=== PATIENT | female | born 1945 | race Caucasian/White ===

== ENCOUNTER 2019-10-10 13:28 | Emergency (ER) | payer MEDICARE, SELFPAY ==
[2019-10-10 13:30] VITALS: BP 173/102; PULSE 110; RESP 16; TEMP 36.8; O2SAT 94; BMI 32.5
--- NOTE | 2019-10-10 13:40 | ED_ITS ---
Entered by Jazmin Ware, acting as scribe for Eliseo Silva DO HPI - Chest Pain General: Chief Complaint: Chest Pain Stated Complaint: CHEST PAIN Time Seen by Provider: 10/10/19 13:40 Source: patient Mode of arrival: ambulatory Limitations: no limitations History of Present Illness: MD complaint: chest pain Onset (ago): day(s) (last night) Timing of current episode: constant Prior episodes: Yes Onset: during rest Pain location: substernal Pain radiation: none Severity: mild Quality: burning Relieving factors: nothing Exacerbating factors: nothing Associated symptoms: Reports dyspnea and other (shortness of breath chronic, cough chronic) Review of Systems General: Reports: 10 or more systems reviewed and unremarkable except in HPI and below Const: Reports: chills Card: Reports: chest pain Resp: Reports: shortness of breath and productive cough PFSH ED PFSH: Medical History Coronary artery disease History of [place] (myocardial infarction) HTN (hypertension) PAD (peripheral artery disease) Surgical History History of cholecystectomy S/P femoral-popliteal bypass surgery Family History Other CAD (coronary artery disease) Cancer Diabetes Hypertension Stroke Social History Smoking and tobacco status: former smoker History of recent travel: No Physical Exam Const: COMMON NORMALS: no apparent distress, average body habitus, oriented x3, no limitations, healthy appearing, alert and well nourished HENMT: COMMON NORMALS: normocephalic, head/scalp atraumatic, hearing grossly n ormal bilaterally, external ears normal, EAC's normal, TM's normal bilaterally, external nose normal, nasal mucous membranes and turbinates normal, moist oral mucous membranes, oropharynx normal, dentition normal and gingiva normal HEAD & SCALP: normocephalic and atraumatic NOSE: external nose normal and nasal mucous membranes and turbinates normal EXTERNAL EAR: Yes external ears normal EXTERNAL AUDITORY CANAL: EAC's normal TYMPANIC MEMBRANE: TM's normal bilaterally Eye: COMMON NORMALS: PERRL, EOMs intact bilaterally, conjunctivae normal, no scleral icterus, no papilledema, normal visual anaya by confrontation and fundi normal bilaterally CONJUNCTIVA: Yes conjunctivae normal PUPIL: Yes PERRL DIRECT OPHTHALMOSCOPY: Yes no papilledema and Yes fundi normal bilaterally Neck/C-Spine: COMMON NORMALS: full ROM, no lymphadenopathy, supple, no meningeal signs, thyroid normal and no carotid bruits THYROID: thyroid normal Resp: COMMON NORMALS: normal respiratory effort, no retractions, no use of accessory muscles, clear to auscultation bilaterally and percussion normal AUSCULTATION: clear to auscultation bilaterally PERCUSSION: percussion normal Cardio: COMMON NORMALS: no murmurs RATE: tachycardic GI: COMMON NORMALS: normal to inspection, nondistended, normoactive bowel sounds, soft to palpation, non-tender, no hepatosplenomegaly, no masses and no bruits PALPATION: Yes soft and Yes no hepatosplenomegaly : COMMON NORMALS: Yes no CVA tenderness and Yes external appearance normal BLADDER/KIDNEY EXAM: Yes no CVA tenderness Back/Pelvis: COMMON NORMALS: no CVA tenderness, thoracic and lumbar spine normal to inspection, no thoracic nor lumbar tenderness, thoraco-lumbar ROM normal and straight leg raise negative bilaterally Extremity: COMMON NORMALS: normal to inspection, full ROM, normal capillary refill, no joint enlargement, no clubbing, cyanosis or edema, no calf tenderness and no pedal edema Neuro: COMMON NORMALS: oriented x3 SENSORIUM/ORIENTATION: Yes alert MENINGEAL SIGNS: Yes no meningeal signs Skin: COMMON NORMALS: no rashes or lesions noted, no wounds, skin turgor normal, no jaundice, no petechiae and no mottling GENERAL SKIN EXAM: no rashes or lesions noted and turgor normal Course Vital Signs: Vital signs: Vital Signs Temperature 98.3 F 10/10/19 13:30 Pulse Rate 110 H 10/10/19 13:30 Respiratory Rate 16 10/10/19 13:30 Blood Pressure 173/102 10/10/19 13:30 Pulse Oximetry 97 10/10/19 13:54 MDM - Chest Pain MDM Narrative: Medical decision making narrative: pt's pain was resolved after GI cocktail. Discharge Plan Discharge Patient Disposition: Home, Self-Care Clinical Impression: Atypical chest pain, Chest pain due to GERD, Dizziness Condition: Stable Prescriptions: New Carafate 100 mg/mL suspension 10 ml PO Q6H 56 Days Qty: 2240 RF: 0 meclizine 25 mg tablet 25 mg PO QID PRN (Reason: dizziness) Qty: 20 RF: 0 No Action simvastatin 20 mg tablet 20 mg PO DAILY RF: 0 pantoprazole 40 mg tablet,delayed release (DR/EC) 40 mg PO DAILY RF: 0 clopidogrel [Plavix] 75 mg tablet 75 mg PO DAILY RF: 0 allopurinol 100 mg tablet 100 mg PO DAILY RF: 0 aspirin [Adult Low Dose Aspirin] 81 mg tablet,delayed release (DR/EC) 81 mg PO DAILY RF: 0 glipizide 5 mg tablet 5 mg PO DAILY RF: 0 metformin 1,000 mg tablet 1,000 mg PO BID RF: 0 amitriptyline 25 mg tablet 25 mg PO DAILY RF: 0 levothyroxine 100 mcg capsule 50 mcg PO DAILY RF: 0 pregabalin [Lyrica] 25 mg capsule 25 mg PO BID RF: 0 lisinopril 20 mg tablet 20 mg PO DIRECTED 30 Days Qty: 45 RF: 11 nitroglycerin [Nitrostat] 0.4 mg tablet, sublingual 0.4 mg sublingual Q5M PRN (Reason: chest pain) 30 Days Qty: 25 RF: 2 Referrals: Jenniffer Jenkins MD [Primary Care Provider] - Coding Level of Care Code ED Armature Tester for 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 The documentation recorded by the Chaz plata Bridget Annette, accurately reflects the service I personally performed and the decisions made by , Eliseo Silva, DO
[2019-10-10 13:54] VITALS: O2SAT 97
[2019-10-10] MEDS: lidocaine 2% viscous 15 ML, aluminum-mag hydrox-simethicon 30 ML, sucralfate oral liq 1 GM PO (14:13)
[2019-10-10 15:04] VITALS: BP 144/91; PULSE 89; RESP 17; O2SAT 97
== END 2019-10-10 15:05 | disposition home or self-care (01) ==
LOC: ER 14:55
PROVIDERS: Emergency Provider Family Medicine; Family Provider Internal Medicine; PCP Internal Medicine
DX: R07.89 Other chest pain (principal); K21.9 Gastro-esophageal reflux disease without esophagitis; R42 Dizziness and giddiness; I25.10 Atherosclerotic heart disease of native coronary artery without angina pectoris; I25.2 Old myocardial infarction; I10 Essential (primary) hypertension; Z87.891 Personal history of nicotine dependence; Z79.82 Long term (current) use of aspirin
CPT/HCPCS: 12345; 99281; 99282

== ENCOUNTER 2019-12-29 15:01 | Outpatient (CLI) | payer BC, MEDICARE, SELFPAY ==
--- NOTE | 2019-12-29 | XR_ITS ---
WS: [id number] SCREENING DEXA SCAN [employer] CLINICAL INFORMATION: ASYMPTOMATIC POSTMENOPAUSAL COMPARISON: May 10, 2015 FINDINGS: The L1-L4 bone mineral density measures 1.162 g/cm2. This corresponds to a T score score of -0.1 and Z score of 1.0. Left femoral neck bone mineral density measures 0.899 g/cm2. This corresponds to a T score of -0.9 an d Z score of 0.5. Right femoral neck bone mineral density measures 0.839 g/cm2. This corresponds to a T score -1.3of an d Z score of 0.0. Mean femoral neck bone mineral density measures 0.869 g/cm2. This corresponds to a T score of -1.1 an d Z score of 0.2. XR/XR DEXA axial skeleton* [id number] IMPRESSION: Osteopenia in the femoral necks. Patient's FRAX calculated 10 year probability for major osteoporotic fracture i s 18.1 % and osteoporotic hip fracture is 5.5%. Bone mineral density in the lumbar spine has increased 9.4% since May 10 015 but is likely spuriously elevated due to endplate sclerosis. Bone mineral d ensity in the femoral necks has decreased -4.6% since 2014.
== END 2019-12-29 15:02 | disposition home or self-care (01) ==
LOC: RADWPI 15:05
PROVIDERS: Family Provider Internal Medicine; PCP Internal Medicine; Visit Provider Internal Medicine
DX: Z78.0 Asymptomatic menopausal state (principal); M85.88 Other specified disorders of bone density and structure, other site
CPT/HCPCS: 77080

== ENCOUNTER 2020-04-15 16:45 | Outpatient (CLI) | payer MEDICARE, BC, SELFPAY ==
--- NOTE | 2020-04-15 | XRR_ITS ---
PROCEDURE INFORMATION: Exam: XR Lumbosacral Spine, 2 or 3 Views Exam date and time: 04/15/2020 5:29 PM Age: 75 years old Clinical indication: Low back pain and sciatica; Additional info: Lower back pain with left sciatica TECHNIQUE: Imaging protocol: XR of the lumbosacral spine, 2 or 3 views. COMPARISON: CR Lumbar Spine 5 views [id number] 02/09/2014 3:45 PM FINDINGS: Vertebrae: Osteopenia. Levoscoliosis and multilevel degenerative change. Grade 1 anterolisthesis of L4 on L5 and L5 on S1. Intraperitoneal space: Status post cholecystectomy. Gastrointestinal tract: Prominent stool. Vasculature: Vascular calcification. XR/XR lumbar spine 2-3V* [id number] IMPRESSION: 1. Levoscoliosis and multilevel degenerative change. 2. Grade 1 anterolisthesis of L4 on L5 and L5 on S1.
== END 2020-04-15 16:46 | disposition home or self-care (01) ==
LOC: RAD 16:55
PROVIDERS: PCP Internal Medicine; Visit Provider Internal Medicine
DX: M54.5 Low back pain (principal); M54.32 Sciatica, left side
CPT/HCPCS: 72100

== ENCOUNTER 2020-05-22 13:03 | Outpatient (CLI) | payer MEDICARE, SELFPAY ==
--- NOTE | 2020-05-22 13:10 | MM_ITS ---
WS: [id number] BILATERAL DIGITAL SCREENING MAMMOGRAM WITH CAD CLINICAL INFORMATION: SCREENING HISTORY: Screening mammogram. No current complaints. COMPARISON: TECHNIQUE: Bilateral CC and MLO views. FINDINGS: Fatty-replaced breasts bilaterally. No suspicious focal mass, asymmetry, calcifications, or business solutions architect ural distortion. No evidence of malignancy. Vascular calcification MM/[place] [id number] IMPRESSION: BI-RADS: 2-Benign FOLLOW UP: 1 Year Follow-up Recommend return to annual screening mammography.
== END 2020-05-22 13:04 | disposition home or self-care (01) ==
PROVIDERS: PCP Internal Medicine; Visit Provider Internal Medicine
DX: Z12.31 Encounter for screening mammogram for malignant neoplasm of breast (principal)
CPT/HCPCS: 77067

== ENCOUNTER 2020-06-24 09:57 | Outpatient (CLI) | payer MEDICARE, SELFPAY ==
--- NOTE | 2020-06-24 10:00 | CT_ITS ---
WS: [id number] CTA ABDOMINAL AORTA WITH RUNOFF TECHNIQUE: Contrast enhanced CTA of the abdominal aorta with bilateral lower extremity runoff. Multip lanar reformatted images were obtained. MIP reformats were also reviewed. CLINICAL INFORMATION: I73.9 - Peripheral vascular disease, unspecified COMPARISON: CTA 8 10,016 DLP: 1425.[address] scans at [facility] use at least one of these dose optimization techniques: automat ed exposure control; mA and/or kV adjustment per patient size (includes targeted exams where dose is matched to clinical indication); or iterative reconstruction. FINDINGS: Prior cholecystectomy. Chronic emphysematous changes in the lung bases. Normal liver. Small esophageal hiatal hernia. Splenic granulomas. Heterogeneous splenic enhancement is unchanged. Adrena l glands are normal. Normal renal parenchymal enhancement. No hydronephrosis. Sigmoid diverticulosis. No evidence of acute diverticulitis. Mild stenosis at the celiac origin. Celiac and SMA are patent. Both renal arteries are patent. Normal caliber abdominal aorta. Aortic calcification. No abdominal ao rtic aneurysm. Grade 1 anterolisthesis L5 on S1. RIGHT: 40% stenosis right proximal common iliac artery origin is unchanged. Right common iliac and in ternal iliac arteries are patent with dense calcification. External iliac artery is patent with mild segmental stenosis. Right common femoral artery is patent. Femorofemoral bypass graft is occluded. Th is is new from 2016. Superficial femoral artery and deep femoral arteries are patent. Popliteal arter y is patent to the trifurcation. Dominant two-vessel runoff to the ankle with tiny peroneal artery. LEFT: Left femoral bypass graft. Left common iliac artery is patent with moderate to severe stenosis at the origin. Dense calcification in the left iliac system. Internal iliac artery is patent. Externa l iliac artery is occluded. Tiny common femoral artery is patent. Femorofemoral bypass graft is occlu ded. Superficial femoral and deep femoral arteries are patent. SFA is patent to the adductor hiatus. Popliteal artery is patent to the trifurcation. Two-vessel runoff to the ankle with poor flow in the posterior tibial artery. CT/CT angio abd aorta runof [id number] IMPRESSION: 1. No abdominal aortic aneurysm. 2. 40% stenosis RIGHT proximal common iliac arteries unchanged. 3. Femorofemoral bypass graft is occluded new from previous. 4. Dominant two-vessel runoff to the RIGHT ankle with tiny peroneal artery 5. Dominant two-vessel runoff to the LEFT ankle with tiny posterior tibial art danish. 6. LEFT external iliac artery is occluded. Reconstitution of the common femora l artery with flow in the SFA to the adductor hiatus. Femorofemoral bypass ann t is occluded. 7. Cholelithiasis
[2020-06-24 10:40] LABS: Blood Urea Nitrogen 13 mg/dL (8-23)
[2020-06-24] MEDS: iohexol 350 mg/mL 100 mL Btl IV (11:02)
== END 2020-06-24 09:58 | disposition home or self-care (01) ==
LOC: RADWPI 10:01
PROVIDERS: PCP Internal Medicine; Visit Provider Internal Medicine Cardiovascular Disease
DX: I73.9 Peripheral vascular disease, unspecified (principal); K80.20 Calculus of gallbladder without cholecystitis without obstruction; I74.5 Embolism and thrombosis of iliac artery
CPT/HCPCS: 75635; 82565; 84520; Q9967

== ENCOUNTER 2020-06-25 11:46 | Emergency (ER) | payer MEDICARE, SELFPAY ==
[2020-06-25 11:54] VITALS: BP 170/122; PULSE 102; RESP 18; TEMP 36.4; O2SAT 96; BMI 35.4
--- NOTE | 2020-06-25 12:05 | ECG_ITS ---
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 Measurements Intervals [place] Rate: 95 P: 51 AL: 172 QRS: 16 QRSD: 94 T: 54 QT: 342 QTc: 431 Interpretive Statements SINUS RHYTHM Compared to ECG 05/22/2019 03:18:52 Sinus tachycardia no longer present Electronically Signed On 06-25-2020 15:16:58 AGRICULTURE WORKER by Tanja Jenkins M.D. [id number]
--- NOTE | 2020-06-25 12:05 | XR_ITS ---
WS: [id number] PORTABLE CHEST HISTORY: cp COMPARISON: 05/22/2019 Pulmonary hyperexpansion from emphysema. Mild interstitial thickening at the lung bases. No pneumonia . Normal vasculature. No pleural effusion or pneumothorax. Cardiac size: Normal. Mediastinum/Aorta: Mild atherosclerosis aorta. No osseous abnormality seen. XR/XR chest 1V portable [id number] IMPRESSION: Minimal interstitial thickening at the lung bases. Superimposed on emphysema.
[2020-06-25 12:13] VITALS: BP 158/94; PULSE 94; O2SAT 96
--- NOTE | 2020-06-25 12:18 | W.ED.CHESTPA ---
HPI - Chest Pain General: Chief Complaint: Chest Pain Stated Complaint: chest pain Time Seen by Provider: 06/25/20 12:03 History of Present Illness: HPI narrative: Patient presents with chest pain that started today. Patient said she had a angiogram done yesterday showed she had a femoropopliteal blockage and they recommended that she have surgery to get it cleared out. She says she thinks me today because her have some chest pain. She denies any distress shortness of breath nausea vomiting chills or other related problems and the chest pain seems to go from right to left and does hurt some on inspiration. MD complaint: chest pain Pertinent past history: coronary artery disease, prior ID, [facility] and other (Fem pop blockage) Onset (ago): hour(s) Timing of current episode: constant Prior episodes: Yes Onset: during rest Pain location: left chest and right chest Pain radiation: neck Severity: mild Quality: aching Relieving factors: nothing Exacerbating factors: inspiration Associated symptoms: Reports no associated symptoms; Deny abdominal pain, dyspnea, fever(s), nausea or vomiting Review of Systems Const: Denies: fever(s), chills or body aches Eyes: Denies: change in vision or blurry vision ENMT: Denies: throat pain or nasal congestion Card: Reports: chest pain; Denies: dyspnea on exertion Resp: Denies: dyspnea, productive cough or non-productive cough GI: Denies: abdominal pain, nausea or vomiting Musc: Denies: extremity pain Skin/Breast: Denies: rash Neuro: Denies: headache(s) Psych: Denies: anxiety or depression Alfredo/Lymph: Denies: easy bruising PFS ED PFSH: Medical History (Updated 06/25/20 @ 13:02 by JO ANN Ryan) Coronary artery disease History of [place] (myocardial infarction) HTN (hypertension) PAD (peripheral artery disease) Surgical History History of cholecystectomy S/P femoral-popliteal bypass surgery Family History Other CAD (coronary artery disease) Cancer Diabetes Hypertension Stroke Social History Smoking and tobacco status: former smoker History of recent travel: No Physical Exam Const: COMMON NORMALS: no acute distress, average body habitus and patient oriented x3 HENMT: COMMON NORMALS: normocephalic HEAD & SCALP: normal to inspection and normocephalic FACE & SINUS: normal facial exam Eye: COMMON NORMALS: conjunctivae normal GENERAL EYE: appearance normal, both eyes and all related structures CONJUNCTIVA: Yes conjunctivae normal Neck/C-Spine: COMMON NORMALS: no JVD Chest: COMMONS NORMALS: normal inspection of the chest Resp: COMMON NORMALS: normal respiratory effort and clear to auscultation bilaterally AUSCULTATION: clear to auscultation bilaterally Cardio: COMMON NORMALS: no JVD, regular rate and regular rhythm RATE: regular rate RHYTHM: regular rhythm GI: COMMON NORMALS: Normal to inspection, nondistended, normoactive bowel sounds present Extremity: COMMON NORMALS: normal to inspection and full ROM Neuro: COMMON NORMALS: patient oriented x3 Course Vital Signs: Vital signs: Vital Signs Temperature 97.5 F L 06/25/20 11:54 Pulse Rate 89 06/25/20 12:46 Respiratory Rate 24 H 06/25/20 12:46 Blood Pressure 155/95 06/25/20 12:46 Pulse Oximetry 95 06/25/20 12:46 MDM - Chest Pain MDM Narrative: Medical decision making narrative: Discussed patient with Dr. Acharya. I discussed test results with patient. Patient does not want to stay for her 2-hour troponin test. I explained to her the risk of leaving for a test is completed which can include cardiac damage or other related problems. Patient says she feels fine does not want to stay for that test. I explained to her signs symptoms of heart attack heart problems related to her symptoms. Patient still decides that she wants to sign AMA form and leave. I discussed case with Dr. Acharya again. Lab Data: Labs: Lab Results 06/25/20 06/25/20 06/25/20 Range/Units 12:22 12:22 12:22 WBC 8.7 (4.0-10.0) 10^3/ uL RBC 5.08 (4.1-5.3) 10^6/u L Hgb 13.3 (11.5-15.3) g/dL Hct 43.3 (37.0-47.0) % MCV 85.2 (81-99) fL MCH 26.2 L (28.0-34.0) pg MCHC 30.7 (30.0-36.0) g/dL RDW 15.7 H (12.1-15.1) % Plt Count 287 (130-400) 10^3/c mm MPV 10.2 (7.4-10.4) fL Neut % (Auto) 53.5 % Lymph % (Auto) 32.4 % [place] % (Auto) 7.7 % Eos % (Auto) 5.1 % Baso % (Auto) 1.0 % Neut # (Auto) 4.64 (1.8-7.7) 10^3/u L Lymph # (Auto) 2.8 (0.8-4.8) 10^3/u L [place] # (Auto) 0.7 (0.2-0.9) 10^3/u L Eos # (Auto) 0.4 (0.0-0.8) 10^3/u L Baso # (Auto) 0.1 (0.0-0.1) 10^3/u L Nucleated RBC % (a uto) 0 % Nucleated RBCs # 0.0 /100WBC PT 13.10 (12.1-14.9) SECO NDS INR 0.96 (0.8-1.2) Sodium 140 (136-145) mmol/L Potassium 4.9 (3.5-5.1) mmol/L Chloride 105 (98-107) mmol/L Carbon Dioxide 22 (22-29) mmol/L Anion Gap 17.9 (5-19) BUN 17 (8-23) mg/dL Creatinine 1.0 H (0.5-0.9) mg/dL GFR Calculation Not Reportable Glucose 275 H (65-115) mg/dL Calculated Osmolal ity 301 H (285-295) mOsm/k g Calcium 8.9 (8.5-10.5) mg/dL Total Bilirubin 0.3 (0.15-1.2) mg/dL AST 13 (0-32) U/L ALT 14 (0-33) U/L Alkaline Phosphata se 98 (35-105) IU/L Troponin T Baselin e (0-10) ng/L Total Protein 6.6 (6.6-8.7) g/dL Albumin 4.2 (3.5-5.2) g/dL Globulin 2.4 (1.3-4.6) g/dL 06/25/20 Range/Units 12:22 WBC (4.0-10.0) 10^3/ uL RBC (4.1-5.3) 10^6/u L Hgb (11.5-15.3) g/dL Hct (37.0-47.0) % MCV (81-99) fL MCH (28.0-34.0) pg MCHC (30.0-36.0) g/dL RDW (12.1-15.1) % Plt Count (130-400) 10^3/c mm MPV (7.4-10.4) fL Neut % (Auto) % Lymph % (Auto) % [place] % (Auto) % Eos % (Auto) % Baso % (Auto) % Neut # (Auto) (1.8-7.7) 10^3/u L Lymph # (Auto) (0.8-4.8) 10^3/u L [place] # (Auto) (0.2-0.9) 10^3/u L Eos # (Auto) (0.0-0.8) 10^3/u L Baso # (Auto) (0.0-0.1) 10^3/u L Nucleated RBC % (a uto) % Nucleated RBCs # /100WBC PT (12.1-14.9) SECO NDS INR (0.8-1.2) Sodium (136-145) mmol/L Potassium (3.5-5.1) mmol/L Chloride (98-107) mmol/L Carbon Dioxide (22-29) mmol/L Anion Gap (5-19) BUN (8-23) mg/dL Creatinine (0.5-0.9) mg/dL GFR Calculation Glucose (65-115) mg/dL Calculated Osmolal ity (285-295) mOsm/k g Calcium (8.5-10.5) mg/dL Total Bilirubin (0.15-1.2) mg/dL AST (0-32) U/L ALT (0-33) U/L Alkaline Phosphata se (35-105) IU/L Troponin T Baselin e 6 (0-10) ng/L Total Protein (6.6-8.7) g/dL Albumin (3.5-5.2) g/dL Globulin (1.3-4.6) g/dL Discharge Plan Discharge Patient Disposition: Left Against Medical Advice Clinical Impression: Atypical chest pain Condition: Stable Prescriptions: No Action simvastatin 20 mg tablet 20 mg PO DAILY RF: 0 pantoprazole 40 mg tablet,delayed release (DR/EC) 40 mg PO DAILY RF: 0 allopurinol 100 mg tablet 100 mg PO DAILY RF: 0 glipizide 5 mg tablet 5 mg PO DAILY RF: 0 metformin 1,000 mg tablet 1,000 mg PO BID RF: 0 amitriptyline 25 mg tablet 25 mg PO DAILY RF: 0 levothyroxine 100 mcg capsule 50 mcg PO DAILY RF: 0 pregabalin [Lyrica] 25 mg capsule 25 mg PO BID RF: 0 lisinopril 20 mg tablet 20 mg PO DIRECTED 30 Days Qty: 45 RF: 11 nitroglycerin [Nitrostat] 0.4 mg tablet, sublingual 0.4 mg sublingual Q5M PRN (Reason: chest pain) Qty: 25 RF: 4 clopidogrel [Plavix] 75 mg tablet 75 mg PO DAILY Qty: 90 RF: 3 meclizine 25 mg tablet 25 mg PO QID PRN (Reason: dizziness) Qty: 20 RF: 0 Discharge Orders: Discharge ED (Routine); Ordered 06/25/20 Ordered By: Michael Saaevdra Referrals: Jenniffer Jenkins MD [Primary Care Provider] - Patient Instructions: Chest Pain (ED) Activity Restrictions/Additional Instructions: You left AGAINST MEDICAL ADVICE your recommend that a 2-hour troponin test be done. You made a choice to not have that test done. Return the ER follow-up with your family medical provider if the symptoms occur or worsen watch for nausea and vomiting and shortness of breath heaviness in the chest. Those things occur please return the ER or call ambulance. Coding Level of Care Code ED Dumb Waiter Operator for Param Carpio Exam Comprehensive
[2020-06-25 12:32] LABS: Basophils # 0.1 10^3/uL (0.0-0.1); Eosinophils # 0.4 10^3/uL (0.0-0.8); Eosinophils % 5.1 %; Hematocrit 43.3 % (37.0-47.0); Hemoglobin 13.3 g/dL (11.5-15.3); Lymphocytes # 2.8 10^3/uL (0.8-4.8); Lymphocytes % 32.4 %; Mean Corpuscular HGB Conc 30.7 g/dL (30.0-36.0); Mean Corpuscular Hemoglobin 26.2 pg (28.0-34.0); Mean Corpuscular Volume 85.2 fL (81-99); Mean Platelet Volume 10.2 fL (7.4-10.4); Monocytes # 0.7 10^3/uL (0.2-0.9); Monocytes % 7.7 %; Neutrophils # 4.64 10^3/uL (1.8-7.7); Neutrophils % 53.5 %; Nucleated Red Blood Cells % 0 %; Platelet Count 287 10^3/cmm (130-400); Red Blood Count 5.08 10^6/uL (4.1-5.3); Red Cell Distribution Width 15.7 % (12.1-15.1); White Blood Count 8.7 10^3/uL (4.0-10.0)
[2020-06-25 12:45] LABS: INR 0.96 (0.8-1.2)
[2020-06-25 12:46] VITALS: BP 155/95; PULSE 89; RESP 24; O2SAT 95
[2020-06-25 12:49] LABS: Alanine Aminotransferase 14 U/L (0-33); Albumin Level 4.2 g/dL (3.5-5.2); Alkaline Phosphatase 98 IU/L (35-105); Anion Gap 17.9 (5-19); Aspartate Amino Transferase 13 U/L (0-32); Blood Urea Nitrogen 17 mg/dL (8-23); Calcium 8.9 mg/dL (8.5-10.5); Carbon Dioxide 22 mmol/L (22-29); Chloride 105 mmol/L (98-107); Globulin 2.4 g/dL (1.3-4.6); Glucose 275 mg/dL (65-115); Osmolality Calculated 301 mOsm/kg (285-295); Potassium 4.9 mmol/L (3.5-5.1); Sodium 140 mmol/L (136-145); Total Bilirubin 0.3 mg/dL (0.15-1.2); Total Protein 6.6 g/dL (6.6-8.7)
[2020-06-25 12:51] LABS: Troponin(5th) Baseline 6 ng/L (0-10)
[2020-06-25 13:05] VITALS: BP 173/89; PULSE 85; RESP 24; O2SAT 95
[2020-06-25 13:30] LABS: Add Urine Microscopic? YES; Bilirubin Urine 1+ (Negative); Blood Urine Neg (Negative); Glucose Urine UA 2+ (Normal); Ketones Urine 1+ (Negative); Leukocyte Esterase Urine 2+ (Negative); Nitrate Urine Negative (Negative); Protein Urine Neg (Negative); Urine Appearance SL Hazy (CLEAR); Urine Color Yellow (Yellow); Urobilinogen Urine Norm (Negative); pH Urine 5 (5-7)
[2020-06-25 13:31] LABS: Bacteria Urine 4+ /hpf; RBC Urine 0-4 /hpf (0-2); WBC Urine 25-40 /hpf (0-5)
[2020-06-25 13:32] LABS: Add Urine Culture? Yes
== END 2020-06-25 13:06 | disposition left against medical advice (07) ==
PROVIDERS: Emergency Provider Nurse Practitioner Family; PCP Internal Medicine
DX: R07.89 Other chest pain (principal); Z79.02 Long term (current) use of antithrombotics/antiplatelets; Z79.84 Long term (current) use of oral hypoglycemic drugs; I25.10 Atherosclerotic heart disease of native coronary artery without angina pectoris; I25.2 Old myocardial infarction; I10 Essential (primary) hypertension; Z87.891 Personal history of nicotine dependence; Z53.21 Procedure and treatment not carried out due to patient leaving prior to being seen by health care provider
CPT/HCPCS: 12345; 71045; 80053; 81001; 84484; 85025; 85610; 87086; 93005; 99282; 99283

== ENCOUNTER → 2020-06-30 08:05 | Outpatient (BNVA) | payer MEDICARE, SELFPAY | PROVIDERS: PCP Internal Medicine; Visit Provider Internal Medicine Cardiovascular Disease | DX: Z20.828 Contact with and (suspected) exposure to other viral communicable diseases (principal); Z01.812 Encounter for preprocedural laboratory examination | CPT/HCPCS: 87635 ==

== ENCOUNTER 2020-07-01 14:01 | Outpatient (CLI) | payer MEDICARE, SELFPAY ==
[2020-07-01 14:24] LABS: Basophils # 0.1 10^3/uL (0.0-0.1); Basophils % 0.7 %; Eosinophils # 0.3 10^3/uL (0.0-0.8); Eosinophils % 2.7 %; Hematocrit 46.3 % (37.0-47.0); Hemoglobin 13.8 g/dL (11.5-15.3); Lymphocytes # 3.8 10^3/uL (0.8-4.8); Lymphocytes % 30.8 %; Mean Corpuscular HGB Conc 29.8 g/dL (30.0-36.0); Mean Corpuscular Volume 87.4 fL (81-99); Mean Platelet Volume 10.1 fL (7.4-10.4); Monocytes # 0.9 10^3/uL (0.2-0.9); Monocytes % 7.5 %; Neutrophils # 7.08 10^3/uL (1.8-7.7); Neutrophils % 57.9 %; Nucleated Red Blood Cells % 0 %; Platelet Count 273 10^3/cmm (130-400); Red Cell Distribution Width 15.7 % (12.1-15.1); White Blood Count 12.2 10^3/uL (4.0-10.0)
[2020-07-01 14:41] LABS: INR 1.04 (0.8-1.2)
[2020-07-01 14:50] LABS: Anion Gap 17.6 (5-19); Blood Urea Nitrogen 16 mg/dL (8-23); Calcium 9.4 mg/dL (8.5-10.5); Carbon Dioxide 23 mmol/L (22-29); Chloride 106 mmol/L (98-107); Glucose 118 mg/dL (65-115); Osmolality Calculated 296 mOsm/kg (285-295); Potassium 4.6 mmol/L (3.5-5.1); Sodium 142 mmol/L (136-145)
== END 2020-07-01 14:02 | disposition home or self-care (01) ==
LOC: LAB 14:05
PROVIDERS: PCP Internal Medicine; Visit Provider Internal Medicine Cardiovascular Disease
DX: I25.10 Atherosclerotic heart disease of native coronary artery without angina pectoris (principal); I25.2 Old myocardial infarction; R07.89 Other chest pain
CPT/HCPCS: 80048; 85025; 85610

== ENCOUNTER 2020-07-04 08:50 | Observation (INO) | payer MEDICARE, SELFPAY ==
--- NOTE | 2020-07-04 06:05 | XACV_ITS ---
Ht: 163 cm Wt: 88 kg BSA: 2.03 m2 Any Known Allergies: Codeine Gender: Female : 1945 Exam Type: Invasive Peripheral Vascular Procedure(s): Procedure Description: Peripheral Cath Diagnostic Procedure Exam Priority: Routine Conclusions Lifestyle limiting claudication of left leg despite optimization of medicine in a patient with history of femorofemoral graft which is now known to occluded as evident by CTA. CTA was suggestive of left common and external iliac complete stenosis. Today patient was brought in Travel Registered Nurse Nicu. Popliteal approach was adopted however despite of multiple technique we were not able to cross the lesion through retrograde fashion. At this point we will continue medical management and will bring patient back for right groin antegrade approach. Patient would like to opt for only percutaneous treatment and not to go for surgical therefore we will reschedule her.. Recommendations Continue medical management continue usual post-cath care. Access Site Site: Left Popliteal Sheath Size: 6 Fr Hemost... Success: Unsuccessful Procedure Details Findings Procedure Consent Obtained. Pre-Procedure Time Out. Identified patient by full name and date of as verbalized by the patient/guarantor. Does the consent match the physician's order: Yes. Accurate & Complete Informed Consent: Yes. Inpatient/Outpatient History & Physical on Chart: Yes. If H&P is completed, is and addenduem needed: No; If yes, is the addendum complete: N/A. Visualize and Verify Site with Patient/Guarantor: N/A. Relevant Radiology Images available: Yes. Pre-op teaching completed and patient verbalized understanding. The risks, benefits, and alternatives of sedation and/or procedure were discussed by physician. The patient agrees to continue. Procedure started. Correct patient, site and procedure confirmed by cath team. Current diagnosis: Peripheral Angiogram. PERRLA. 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 Lungs clear x 5 lobes. IV Site on Arrival: 20 gauge in the left anticubital. IV Fluids: 0.9% NaCl at KVO. 0 mL infused prior to senior cytogenetics laboratory director. Pre Procedural Pulses: right dorsalis pedis was Absent. Pre Procedural Pulses: left dorsalis pedis was 2+. Pre Procedural Pulses: right posterior tibial was 1+. Pre Procedural Pulses: left posterior tibial was Doppled. Pre Procedural Pulses: bilateral radial was 2+. Oxygen started at 2liters/min via nasal canula. bilateral groins was prepped with chloroprep then draped in the usual sterile fashion. Physician notified. Baseline sample Acquired. HR: 101 BPM. Equipment: Peripheral. Cardiac Cath Pack. ACIST Manifold Kit Model BT 2000. Heparinized Saline (2 units/mL), 1000 mL bag. Physician arrived. Physician scrubbed in. Immediate Pre-Procedure Time Out. Correct Patient: Yes; Correct Procedure: Yes; Correct Site: Yes; Correct Patient Position: Yes; Correct Supplies: Yes; Dried Flammable Prep: Yes; Blood Products Available: No;. Lidocaine 1% infiltrated to the right groin. Emergency call from 1st Floor. Procedure aborted. Patient will go to CPRU. No contrast given. Vital chart was stopped. Patient brought back to complete procedure. Physician scrubbed in. Ultrasound contacted. Lidocaine 1% infiltrated to the popliteal. Ultrasound arrived. Arterial access obtained. Seeker inserted over the glidewire. Glidewire out. Hand injection performed through the seeker. Glidewire inserted. Glidewire out. Hand injection performed through the seeker. Seeker out. Sheath(s) removed and manual pressure held until hemostasis was achieved. Sterile 4x4 and Op-site applied to the puncture site. No oozing or hematoma noted. Post sheath removal instructions were given and the patient verbalized understanding. Post Procedure: Pulses reassessed and unchanged. PERRLA. 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 No VTE prophylaxis required. Total IV fluids: 75 mL. Medication's Wasted: Other = Versed 2 mg. Medication's Wasted: Other = Fentanyl 100 mcg. Medication's Wasted: Lidocaine 1% = 2 mL. Medication's Wasted: Heparin = 3000 units. Contrast type used: Visipaque 320 mgI/mL, 500 mL bottle. Post-op diagnosis: PAD. Complications: None. Estimated blood loss: 5mL-10mL. Procedure completed. Patient transferred by bed to 1st floor. Vital chart was stopped. Procedure Medications Start: 7:33 AM Stop: 7:33 AM Medication: Fentanyl Amount: 50 mcg Route: I.V. Start: 7:50 AM Stop: 7:50 AM Medication: Versed Amount: 1 mg Start: 7:51 AM Stop: 7:51 AM Medication: Fentanyl Amount: 50 mcg Route: I.V. Start: 7:55 AM Stop: 7:55 AM Medication: Versed Amount: 1 mg Start: 8:07 AM Stop: 8:07 AM Medication: Versed Amount: 1 mg Start: 8:07 AM Stop: 8:07 AM Medication: Fentanyl Amount: 50 mcg Route: I.V. Start: 8:15 AM Stop: 8:15 AM Medication: Versed Amount: 1 mg Start: 12:28 PM Stop: 12:28 PM Medication: Fentanyl Amount: 50 mcg Route: I.V. I, the attending physician, have reviewed and verified all procedure medications. Yes, all medications given per verbal order History/Risk Factors Hypertension: Yes Dyslipidemia: Yes Peripheral Arterial Disease (PAD): Yes Myocardial Infarction (MA): Yes Obesity: Yes Renal Disease: No Prior Interventions PCI: Yes CABG: No Valve Surgery: Yes Report Signatures Finalized by Clay Carvajal MD on 07/08/2020 06:55 PM
[2020-07-04 06:53] VITALS: BP 147/75; PULSE 106; RESP 16; TEMP 36.8; O2SAT 96; BMI 34.3
[2020-07-04] MEDS: diphenhydrAMINE 50 mg Capsule PO (07:03)
--- NOTE | 2020-07-04 07:56 | P.HP_ITS ---
Same Day Surgery H&P Indication for Procedure/HPI DATE OF PROCEDURE: July 04, 2020 CHIEF COMPLAINT/INDICATIONFOR SURGICAL PROCEDURE: Claudication bilaterally lifestyle limiting with abnormal CTA and chronically occluded left common iliac PREOP DIAGNOSIS: Claudication bilaterally with chronically occluded left iliac, more on left PLANNED PROCEDRUE: Operation Date: 07/04/20 07:00 Proposed Procedures p Peripheral Diagnostic 36438 I73.9(Bilateral) - Clay Carvajal MD 70-year-old female past medical history significant for hypertension hyperlipidemia coronary artery disease severe peripheral vascular disease with occluded femoral to femoral bypass for worsening of lifestyle limiting claudication despite of optimization of medicine underwent CTA which confirmed the occlusion of femoral to femoral bypass previously patent she is here for peripheral angiogram and intervention of left common iliac. Patient has been explained all risk benefit and alternative for the procedure. She understand the risk of major bleed rupturing dissection and acute occlusion off common iliac leading to emergent surgery. She understand the risk and benefit of drug- coated balloon and FDA warning regarding increased mortality in the subsets. She would like to proceed with it. Medications/Allergies* Home Medications Medication Instructions Recorded Confirmed Type allopurinol 100 mg tablet 100 mg PO DAILY 09/08/19 07/04/20 History amitriptyline 25 mg tablet 25 mg PO DAILY 09/08/19 07/04/20 History glipizide 5 mg tablet 5 mg PO DAILY 09/08/19 07/04/20 History metformin 1,000 mg tablet 1,000 mg PO BID 09/08/19 07/04/20 History pantoprazole 40 mg tablet,delayed 40 mg PO DAILY 09/08/19 07/04/20 History release pregabalin 25 mg capsule 25 mg PO BID cap 09/08/19 07/04/20 History simvastatin 20 mg tablet 20 mg PO DAILY 09/08/19 07/04/20 History acetaminophen 650 mg PO DAILY 07/04/20 07/04/20 History aspirin 81 mg PO DAILY 07/04/20 07/04/20 History Allergies/Adverse Reactions Allergy/AdvReac Type Severity Reaction Status Date / Time codeine Allergy Unknown Unknown Verified 06/25/20 11:58 Current Medications: Generic Name Dose Route Start Last Admin Trade Name Freq PRN Reason Stop Dose Admin Sodium Chloride 1,000 mls @ 50 mls/hr 07/04/20 06:06 07/04/20 07:03 Sodium Chloride 0.9% IV 07/05/20 02:05 Not Given .Q20H ONE Pertinent History/Comorbid Conditions* Medical History (Updated 07/03/20 @ 00:00 by ) Coronary artery disease History of NC (myocardial infarction) HTN (hypertension) PAD (peripheral artery disease) Surgical History (Updated 10/10/19 @ 13:51 by Jazmin Ware) History of cholecystectomy S/P femoral-popliteal bypass surgery Family History (Updated 09/08/19 @ 08:24 by Katie Gil LPN) Diabetes CAD (coronary artery disease) Cancer Hypertension Stroke Social History Smoking and tobacco status: former smoker History of recent travel: No Pertinent Exam Findings alert, oriented x 3, clear to auscultation bilaterally and regular rate & rhythm Related Problem List Diagnoses (1) PAD (peripheral artery disease): (2) Coronary artery disease: (3) HTN (hypertension): Recommendations Surgery/Procedure today Coding Level of Care Code 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
[2020-07-04 12:40] VITALS: BP 88/58; PULSE 88; RESP 18; TEMP 36.4; O2SAT 92
[2020-07-04 14:00] VITALS: PULSE 94
[2020-07-04 14:48] VITALS: PULSE 94; O2SAT 96
[2020-07-04 15:25] VITALS: BP 97/56; PULSE 92; RESP 18; TEMP 36.6; O2SAT 91
--- NOTE | 2020-07-04 18:25 | PM.DCS ---
Discharge Providers Date of Admission: 07/04/20 08:50 Date of Discharge: July 04, 2020 Attending Provider at Admission: Clay Carvajal MD Attending Provider at Discharge: Clay Carvajal MD Primary Care Provider: Jenniffer Jenkins MD Diagnoses at Discharge Discharge Diagnosis (1) PAD (peripheral artery disease): Status: Acute (2) Coronary artery disease: Status: Acute (3) HTN (hypertension): Status: Acute Reason for Visit Reason for Visit: periphereal diagnostic Hospital Course Hospital Course 75-year-old female past medical history significant for severe peripheral vascular disease history of femorofemoral bypass underwent peripheral angiogram and unsuccessful attempt to revascularize chronically occluded left external iliac and severely diseased common iliac artery. Below the knee approach was adopted we were able to cross with a wire however due to suboptimal images and not good visualization we stopped the procedure with intention that patient will be referred to vascular surgery Dr. Stacy however the patient would like to try from contralateral approach. It is therefore after discussion advised that we will bring patient back after the new year in 10 days for right groin approach under ultrasound due to difficult access. Postop course remained uncomplicated. Patient is being discharged home. Discharge Data Data Completed and Pending: Pending at discharge Category Date Time Status DEBT COLLECTOR request for service Routin e Exams 07/04/20 06:05 Ordered Vitals: Last Vital Signs Temp 97.8 F 07/04/20 15:25 Pulse 92 07/04/20 15:25 Resp 18 07/04/20 15:25 BP 97/56 07/04/20 15:25 Pulse Ox 91 07/04/20 15:25 Discharge Plan Discharge Patient Disposition: Home Condition: Stable Prescriptions: Continued simvastatin 20 mg tablet 20 mg PO DAILY RF: 0 pantoprazole 40 mg tablet,delayed release (DR/EC) 40 mg PO DAILY RF: 0 allopurinol 100 mg tablet 100 mg PO DAILY RF: 0 glipizide 5 mg tablet 5 mg PO DAILY RF: 0 metformin 1,000 mg tablet 1,000 mg PO BID RF: 0 amitriptyline 25 mg tablet 25 mg PO DAILY RF: 0 pregabalin [Lyrica] 25 mg capsule 25 mg PO BID RF: 0 lisinopril 20 mg tablet 20 mg PO DIRECTED 30 Days Qty: 45 RF: 11 nitroglycerin [Nitrostat] 0.4 mg tablet, sublingual 0.4 mg sublingual Q5M PRN (Reason: chest pain) Qty: 25 RF: 4 clopidogrel [Plavix] 75 mg tablet 75 mg PO DAILY Qty: 90 RF: 3 acetaminophen 650 mg capsule 650 mg PO DAILY RF: 0 aspirin 81 mg tablet 81 mg PO DAILY RF: 0 Discharge Orders: Discharge Order (Routine); Ordered 07/04/20 Ordered By: Clay Carvajal Referrals: Clay Carvajal MD [Physician] - ([facility] will be calling you to schedule a cardiology followup with Dr. Carvajal to be seen on the or July. If you don't hear from them with in a reasonable amount of time, please give them a call. Thank you) Discharge Diet: Cardiac Discharge Activity: Increase activity as tolerated Patient Instructions: Peripheral Vascular Angioplasty (DC), Post Angiogram Home Care Instructions Activity Restrictions/Additional Instructions: Dr. Carvajal 's office will be calling to set a follow up to be seen on the or 24 of July and discuss further treatment advice. 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
[2020-07-04 18:30] VITALS: BP 97/56; PULSE 92; RESP 18; TEMP 36.6; O2SAT 91
[2020-07-04] MEDS: pregabalin 25 mg Capsule PO (18:35)
[2020-07-04] MEDS: lisinopril 10 mg Tablet PO (18:35)
--- NOTE | 2020-07-04 19:05 | PC.NURSE ---
Patient discharged at this time home self care. Patient provided with discharge instructions as well as follow up care instructions and restrictions. Patient assisted to wheel chair and accompanied to private vehicle by staff patient alert and oriented and in stable condition upon departure.
== END 2020-07-04 19:05 | disposition home or self-care (01) ==
LOC: CCL 08:50 → CSU 08:50
PROVIDERS: Admitting Provider Internal Medicine Cardiovascular Disease; PCP Internal Medicine; Visit Provider Internal Medicine Cardiovascular Disease
DX: I70.212 Atherosclerosis of native arteries of extremities with intermittent claudication, left leg (principal); I25.10 Atherosclerotic heart disease of native coronary artery without angina pectoris; I10 Essential (primary) hypertension; E78.5 Hyperlipidemia, unspecified; I25.2 Old myocardial infarction; E66.9 Obesity, unspecified; Z68.34 Body mass index [BMI] 34.0-34.9, adult
CPT/HCPCS: 12345; 36415; C1769; C1887; C1894; G0378; J1644; J2250; J3010; J7030; Q0163; Q9967

== ENCOUNTER 2020-07-15 12:45 | Emergency (ER) | payer MEDICARE, SELFPAY ==
[2020-07-15 12:52] VITALS: BP 110/76; PULSE 108; RESP 18; TEMP 36.4; O2SAT 96; BMI 34.2
--- NOTE | 2020-07-15 13:44 | XR_ITS ---
WS: [id number] Exam: XR chest 1V portable [id number] Date/Time of Exam: 07/15/2020 1:48 PM Reason For Exam: Shortness of breath Comparison 06/25/2020. The lungs are clear and fully inflated. Normal cardiomediastinal structures and bony elements. No ple ural effusions. XR/XR chest 1V portable [id number] IMPRESSION: 1. Negative chest.
--- NOTE | 2020-07-15 13:45 | ECG_ITS ---
[facility] Test Date: 2020-07-15 Pat Name: Capri Tobar Department: Room: Gender: Female Paste Thinner: : 1945 Requested By: Marnie Rubio Order Number: [id number] Kimmy MD: Rashaad Jensen M.D. Measurements Intervals [place] Rate: 103 P: 47 [place]: 161 QRS: 6 QRSD: 93 T: 18 QT: 321 QTc: 421 Interpretive Statements SINUS TACHYCARDIA PROBABLE INFERIOR MYOCARDIAL INFARCTION , PROBABLY OLD [35 ms Q WAVE IN II/aVF] Compared to ECG 06/25/2020 11:59:33 Myocardial infarct finding now present Sinus rhythm no longer present Electronically Signed On 07-15-2020 16:49:52 AUTOMATIC LATHE SETTER by Rashaad Jensen M.D. [email or web address] [email or web address].Keek/store/[id number] f
== END 2020-07-15 17:29 | disposition left against medical advice (07) ==
PROVIDERS: Emergency Provider Physician Assistant; PCP Internal Medicine
DX: Z53.21 Procedure and treatment not carried out due to patient leaving prior to being seen by health care provider (principal)
CPT/HCPCS: 71045; 93005; 99281

== ENCOUNTER → 2020-07-16 16:10 | Outpatient (BNVA) | payer MEDICARE, SELFPAY | PROVIDERS: PCP Internal Medicine; Visit Provider Nurse Practitioner Family | DX: I73.9 Peripheral vascular disease, unspecified (principal); R06.02 Shortness of breath | CPT/HCPCS: 80048; 83880; 84443; 85025; 85379 ==

== ENCOUNTER 2020-08-01 10:55 | Outpatient (CLI) | payer MEDICARE, SELFPAY ==
--- NOTE | 2020-08-01 11:00 | USCV_ITS ---
Capri Tobar Age: 75 Gender: F : 1945 Exam Date: 08/01/2020 11:22 Ordering Phys: Patty You Technologist: Jesus Rodriguez Exam Location: [facility] Indication: SHORTNESS OF BREATH BP: 153 / 80 HR: 86 Rhythm: Sinus Technical Quality: Adequate MEASUREMENTS (Male / Female) Normal Values 2D ECHO LV Diastolic Diameter PLAX 3.0 cm 4.2 - 5.9 / 3.9 - 5.3 cm LV Systolic Diameter PLAX 1.8 cm IVS Diastolic Thickness 1.9 cm 0.6 - 1.0 / 0.6 - 0.9 cm IVS Systolic Thickness 1.7 cm LVPW Diastolic Thickness 1.3 cm 0.6 - 1.0 / 0.6 - 0.9 cm LVPW Systolic Thickness 1.0 cm LVOT Diameter 2.0 cm LV Ejection Fraction 2D Teich 71.2 % LV Ejection Fraction MOD 2C 67.5 % LV Ejection Fraction 2C AL 67.3 % LA Diameter 2.9 cm LA Width 4.3 cm LA Height 4.0 cm RA Width 2.6 cm RA Height 3.8 cm Aorta at Sinotubular Diameter 2.8 cm M-MODE LV Diastolic Diameter MM 3.3 cm 4.2 - 5.9 / 3.9 - 5.3 cm LV Systolic Diameter MM 1.9 cm LV Ejection Fraction MM Teich 73.5 % IVS Diastolic Thickness MM 2.4 cm 0.6 - 1.0 / 0.6 - 0.9 cm IVS Systolic Thickness MM 2.3 cm LVPW Diastolic Thickness MM 2.0 cm 0.6 - 1.0 / 0.6 - 0.9 cm LVPW Systolic Thickness MM 2.0 cm Aortic Annulus Diameter 2.8 cm LA Ao Ratio MM 1.1 MV E Point Septal Separation 0.6 cm DOPPLER AV Peak Velocity 153.0 cm/s LVOT Peak Velocity 99.0 cm/s AV Area Cont Eq vti 2.2 cm squared AV Area Cont Eq pk 2.1 cm squared MV Area PHT 5.0 cm squared Mitral E to A Ratio 0.8 MV E' Velocity 48.5 cm/s Mitral E to MV E' Ratio 9.1 Mitral E to LV E' Lateral Ratio 11.2 Mitral E to LV E' Septal Ratio 7.7 TR Peak Velocity 252.0 cm/s TR Peak Gradient 25.4 mmHg Right Atrial Pressure 3.0 mmHg Pulmonary Artery Systolic Pressu 28.4 mmHg PV Peak Velocity 83.0 cm/s RV Acceleration Time 0.1 s RV Ejection Time 0.3 s RV AcT/ET 0.3 FINDINGS Left Ventricle Normal left ventricular cavity size. Normal left ventricular systolic function. No regional wall motion abnormalities. Left ventricular ejection fraction is estimated at 70 %. Grade I/IV diastolic dysfunction (abnormal relaxation filling pattern), normal to mildly elevated filling pressures. Right Ventricle The right ventricle is normal in size and function. Right Atrium The right atrium is normal in size. Left Atrium The left atrium is normal in size. Mitral Valve Structurally normal mitral valve without significant stenosis or prolapse. There is no mitral regurgitation. Aortic Valve Moderate aortic valve calcification. No aortic valve stenosis. No aortic valve regurgitation. Tricuspid Valve Structurally normal tricuspid valve without significant stenosis or regurgitation. Pulmonary artery systolic pressure is normal. Pulmonic Valve Structurally normal pulmonic valve without significant stenosis. There is no pulmonic regurgitation. Pericardium Normal pericardium without effusion. Aorta Normal ascending aorta dimension. CONCLUSIONS 1-Normal left ventricular cavity size. Normal left ventricular systolic function. No regional wall motion abnormalities. Left ventricular ejection fraction is estimated at 70 %. Grade I/IV diastolic dysfunction (abnormal relaxation filling pattern), normal to mildly elevated filling pressures. 2-Moderate aortic valve calcification. No aortic valve stenosis. No aortic valve regurgitation. 3-No significant valve abnormalities. 4-There is no pericardial effusion. 5-Pulmonary artery systolic pressure is within normal limits. 6-Right atrial pressure is around 5 mm of mercury. 7-No significant change since the prior echocardiogram study of 07/06/2017. Clay Cravajal MD (Electronically Signed) Final Date: 01 August 2020 18:42 S
== END 2020-08-01 10:56 | disposition home or self-care (01) ==
LOC: RAD 11:05
PROVIDERS: PCP Internal Medicine; Visit Provider Nurse Practitioner Family
DX: I73.9 Peripheral vascular disease, unspecified (principal); I70.0 Atherosclerosis of aorta
CPT/HCPCS: 93306

== ENCOUNTER 2020-10-04 12:40 | Emergency (ER) | payer MEDICARE, SELFPAY ==
[2020-10-04 13:18] VITALS: BP 100/59; PULSE 118; RESP 22; TEMP 36.8; O2SAT 93; BMI 35.4
[2020-10-04 15:22] VITALS: BP 147/76; PULSE 109; RESP 16; O2SAT 97
--- NOTE | 2020-10-04 15:48 | XR_ITS ---
WS: [id number] XR chest 1V portable [id number] REASON FOR EXAM: SOB FINDINGS: Mild tortuosity of the thoracic aorta without aneurysmal dilatation. Normal heart size. Calcified granulomatous changes bilaterally. No active pulmonary parenchymal or pleural disease. Mild to moderate changes of degenerative spondylosis in the mid and lower thoracic spine. XR/XR chest 1V portable [id number] IMPRESSION: No acute chest abnormality. Chest unchanged compared to 06/25/2020.
--- NOTE | 2020-10-04 15:49 | ECG_ITS ---
[facility] Test Date: 2020-10-04 Pat Name: Capri Tobar Department: Room: Gender: Female Commercial Singer: : 1945 Requested By: Amari Fonseca I Order Number: [id number] Kimmy MD: Meliton Ballard M.D. Measurements Intervals [place] Rate: 106 P: 46 [place]: 168 QRS: 23 QRSD: 88 T: 41 QT: 329 QTc: 438 Interpretive Statements SINUS TACHYCARDIA LOW QRS VOLTAGE IN PRECORDIAL LEADS [QRS DEFLECTION < 1.0 mV IN CHEST LEADS] MINIMAL ST DEPRESSION [0.025+ mV ST DEPRESSION] ABNORMAL RHYTHM ECG Compared to ECG 07/15/2020 13:03:02 Low QRS voltage now present ST (T wave) deviation now present Myocardial infarct finding no longer present Electronically Signed On 10-04-2020 23:16:25 CDT by Meliton Ballard M.D. [email or web address]-the [email or web address] bay [facility] [email or web address].[employer]/store/NU/[id number] f
[2020-10-04 16:10] LABS: Basophils # 0.1 10^3/uL (0.0-0.1); Basophils % 0.4 %; Eosinophils # 0.2 10^3/uL (0.0-0.8); Eosinophils % 1.3 %; Hematocrit 38.2 % (37.0-47.0); Hemoglobin 10.7 g/dL (11.5-15.3); Lymphocytes # 2.6 10^3/uL (0.8-4.8); Lymphocytes % 19.3 %; Mean Corpuscular Hemoglobin 21.4 pg (28.0-34.0); Mean Corpuscular Volume 76.6 fL (81-99); Mean Platelet Volume 10.1 fL (7.4-10.4); Neutrophils # 9.77 10^3/uL (1.8-7.7); Neutrophils % 71.6 %; Nucleated Red Blood Cells % 0 %; Platelet Count 392 10^3/cmm (130-400); Red Blood Count 4.99 10^6/uL (4.1-5.3); Red Cell Distribution Width 17.1 % (12.1-15.1); White Blood Count 13.7 10^3/uL (4.0-10.0)
[2020-10-04 16:23] LABS: ABG PCO2 32.7 mmHg (35-45); ABG PH Result 7.43 (7.35-7.45); Arterial Blood Gas Hematocrit 32.1 % (37-47); Base Excess ABG -2.4 mmol/L (-2.0-2.0); Blood Gas Allen Test Pos; Blood Gas Operator Identificat CAK; Blood Gas Sample Site Brachial, left; Blood Gas Sample Type Arterial; HCO3 ABG 21.5 mmol/L (22-26); Oxygen Device ROOM AIR
[2020-10-04 16:24] LABS: D Dimer 0.31 ug/mIFEU (0-0.59)
--- NOTE | 2020-10-04 16:24 | PC.PHAR ---
pt states she takes care of her own medications-pt states she hasnt been taking metformin for a month then stated she hasnt taken for a few days-pt states when she was taking she took 1000mg po bid-another rx pulls up in our system written in 08/08/20 for 500mg bid-pt states she hasnt been taking levothyroxine for a month-ext med history shows last filled on 09/16/20 50mcg daily-another rx filled on 09/11/20 75mcg po daily
[2020-10-04 16:31] VITALS: BP 124/62; PULSE 105; RESP 16; O2SAT 98
[2020-10-04 16:47] LABS: Alanine Aminotransferase 10 U/L (0-33); Albumin Level 4.2 g/dL (3.5-5.2); Alkaline Phosphatase 87 IU/L (35-105); Anion Gap 19.9 (5-19); Aspartate Amino Transferase 12 U/L (0-32); Blood Urea Nitrogen 21 mg/dL (8-23); Calcium 8.8 mg/dL (8.5-10.5); Carbon Dioxide 22 mmol/L (22-29); Chloride 107 mmol/L (98-107); Globulin 3.7 g/dL (1.3-4.6); Glucose 170 mg/dL (65-115); Lipase 47 U/L (13-60); NT Pro B Type Natriuretic Pept 18 pg/mL (0-450); Osmolality Calculated 307 mOsm/kg (285-295); Potassium 3.9 mmol/L (3.5-5.1); Sodium 145 mmol/L (136-145); Total Bilirubin 0.4 mg/dL (0.15-1.2); Total Protein 7.9 g/dL (6.6-8.7); Troponin(5th) Baseline 8 ng/L (0-10)
[2020-10-04 17:24] VITALS: BP 151/72; PULSE 107; RESP 16; O2SAT 97
--- NOTE | 2020-10-04 17:24 | ED_ITS ---
HPI - SOB/Dyspnea General: Chief Complaint: Shortness of Breath/Dyspnea Stated Complaint: DIFFICULTY BREATHING Time Seen by Provider: 10/04/20 15:17 Source: patient Mode of arrival: ambulatory Limitations: no limitations History of Present Illness: HPI Narrative: This is a 75-year-old female patient with a history of peripheral artery disease status post femoropopliteal bypass who presents to the emergency department with complaints of shortness of breath of about 3 months duration. She has associated weakness and loss of energy. She feels like she does not have enough energy to do any significant activity. She says she has been laying in bed all the time because of these. She also complains of some nausea. She has followed with cardiology, has had an echocardiogram which was normal when I look through her chart. No one can seem to find anything wrong with her. She is here to be evaluated to see if we can find a source for her symptoms. MD elicited complaint: shortness of breath Onset (ago): month(s) (3) Timing: constant Severity: moderate Relieving factors: nothing Associated symptoms: Reports dizziness; Deny abdominal pain, chest congestion, chest pain, cough, diaphoresis, extremity pain, fever(s), hemoptysis, lightheadedness, myalgias, nausea, orthopnea, palpitations, paresthesias, polydipsia, polyuria, rash, sense of impending doom, syncope or vomiting Treatment prior to arrival: none Review of Systems General: Reports: 10 or more systems reviewed and unremarkable except in HPI and below Const: Reports: malaise; Denies: fever(s) or diaphoresis Eyes: Denies: change in vision or blurry vision ENMT: Denies: throat pain, enlarged tonsils, odynophagia, hoarseness, mouth pain or swelling of lips/tongue Card: Denies: chest pain, palpitations, lightheadedness, syncope or orthopnea Resp: Reports: dyspnea; Denies: hemoptysis or chest congestion GI: Denies: abdominal pain, nausea or vomiting : Denies: flank pain, difficulty voiding, dysuria, urinary frequency, urinar y urgency or urinary hesitancy Musc: Denies: extremity pain Skin/Breast: Denies: rash, pruritus or erythema Neuro: Reports: dizziness Endo: Denies: polyuria or polydipsia [facility] ED PFSH: Medical History Claudication in peripheral vascular disease Coronary artery disease History of ND (myocardial infarction) HTN (hypertension) PAD (peripheral artery disease) Surgical History History of cholecystectomy S/P femoral-popliteal bypass surgery Family History Other CAD (coronary artery disease) Cancer Diabetes Hypertension Stroke Social History Smoking and tobacco status: former smoker History of recent travel: No Physical Exam Const: COMMON NORMALS: no acute distress, average body habitus, patient oriented x3, no limitations, healthy appearing, alert and well nourished HENMT: COMMON NORMALS: normocephalic, atraumatic and moist oral mucous membranes HEAD & SCALP: normocephalic and atraumatic Neck/C-Spine: COMMON NORMALS: no meningeal signs and no JVD Resp: COMMON NORMALS: normal respiratory effort, No retractions, No use of accessory muscles, clear to auscultation bilaterally and percussion normal AUSCULTATION: clear to auscultation bilaterally PERCUSSION: percussion normal Cardio: COMMON NORMALS: no JVD, regular rate, regular rhythm, S1 normal heart sound present, S2 normal heart sound present, No gallops present (Cardio), No clicks present (Cardio), No murmurs present (Cardio), No rub (Cardio) and Periph eral pulses 2+ throughout RATE: regular rate RHYTHM: regular rhythm HEART SOUNDS: S1 normal heart sound present and S2 normal heart sound present PERIPHERAL PULSES: Peripheral pulses 2+ throughout GI: COMMON NORMALS: Normal to inspection, nondistended, normoactive bowel sounds present, Soft to palpation, non-tender, No hepatosplenomegaly present, no masses and no bruits PALPATION: Yes Soft to palpation and Yes No hepatosplenomegaly present Extremity: COMMON NORMALS: normal to inspection, full ROM, capillary refill normal, no calf tenderness and no pedal edema Neuro: COMMON NORMALS: patient oriented x3 SENSORIUM/ORIENTATION: Yes alert MENINGEAL SIGNS: Yes no meningeal signs Skin: COMMON NORMALS: no rashes or lesions noted, no wounds, turgor normal, no jaundice, no petechiae and no mottling GENERAL SKIN EXAM: no rashes or lesions noted and turgor normal Course Reevaluation(s): Reevaluation #1: Discussed her lab and imaging findings with her. Negative for acute findings. I explained that she does not have any emergent cause for her symptoms that I can identify. We will discharge her home with no new orders. She voiced understanding and is in agreement with the plan. Time: 17:24 Vital Signs: Vital signs: Vital Signs Temperature 98.3 F 10/04/20 13:18 Pulse Rate 107 H 10/04/20 17:24 Respiratory Rate 16 10/04/20 17:24 Blood Pressure 151/72 10/04/20 17:24 Pulse Oximetry 97 10/04/20 17:24 MDM - SOB/Dyspnea MDM Narrative: Medical decision making narrative: 75-year-old female patient who presents with longstanding symptoms of shortness of breath, generalized weakness, nausea. Evaluation in the emergency department is unremarkable and she is discharged home with no new orders. Lab Data: Labs: Lab Results 10/04/20 10/04/20 10/04/20 Range/Units 16:00 16:00 16:00 WBC 13.7 H (4.0-10.0) 10^3/ uL RBC 4.99 (4.1-5.3) 10^6/u L Hgb 10.7 L (11.5-15.3) g/dL Hct 38.2 (37.0-47.0) % MCV 76.6 L (81-99) fL MCH 21.4 L (28.0-34.0) pg MCHC 28.0 L (30.0-36.0) g/dL RDW 17.1 H (12.1-15.1) % Plt Count 392 (130-400) 10^3/c mm MPV 10.1 (7.4-10.4) fL Neut % (Auto) 71.6 % Lymph % (Auto) 19.3 % [place] % (Auto) 7.0 % Eos % (Auto) 1.3 % Baso % (Auto) 0.4 % Neut # (Auto) 9.77 H (1.8-7.7) 10^3/u L Lymph # (Auto) 2.6 (0.8-4.8) 10^3/u L [place] # (Auto) 1.0 H (0.2-0.9) 10^3/u L Eos # (Auto) 0.2 (0.0-0.8) 10^3/u L Baso # (Auto) 0.1 (0.0-0.1) 10^3/u L Nucleated RBC % (a uto) 0 % Nucleated RBCs # 0.0 /100WBC D-Dimer 0.31 (0-0.59) ug/mIFE U Specimen Type Sample Site ABG pH (7.35-7.45) ABG pCO2 (35-45) mmHg ABG pO2 (80.0-100.0) mmH g ABG HCO3 (22-26) mmol/L ABG Base Excess (-2.0-2.0) mmol/ L Corbin Test Hematocrit (37-47) % O2 Delivery Device FiO2 % Licensed Prosthetist ID Sodium 145 (136-145) mmol/L Potassium 3.9 (3.5-5.1) mmol/L Chloride 107 (98-107) mmol/L Carbon Dioxide 22 (22-29) mmol/L Anion Gap 19.9 H (5-19) BUN 21 (8-23) mg/dL Creatinine 1.1 H (0.5-0.9) mg/dL GFR Calculation Not Reportable Glucose 170 H (65-115) mg/dL Calculated Osmolal ity 307 H (285-295) mOsm/k g Calcium 8.8 (8.5-10.5) mg/dL Total Bilirubin 0.4 (0.15-1.2) mg/dL AST 12 (0-32) U/L ALT 10 (0-33) U/L Alkaline Phosphata se 87 (35-105) IU/L Troponin T Baselin e (0-10) ng/L NT-Pro-B Natriuret Pep 18 (0-450) pg/mL Total Protein 7.9 (6.6-8.7) g/dL Albumin 4.2 (3.5-5.2) g/dL Globulin 3.7 (1.3-4.6) g/dL Lipase 47 (13-60) U/L 10/04/20 10/04/20 Range/Units 16:00 16:11 WBC (4.0-10.0) 10^3/ uL RBC (4.1-5.3) 10^6/u L Hgb (11.5-15.3) g/dL Hct (37.0-47.0) % MCV (81-99) fL MCH (28.0-34.0) pg MCHC (30.0-36.0) g/dL RDW (12.1-15.1) % Plt Count (130-400) 10^3/c mm MPV (7.4-10.4) fL Neut % (Auto) % Lymph % (Auto) % [place] % (Auto) % Eos % (Auto) % Baso % (Auto) % Neut # (Auto) (1.8-7.7) 10^3/u L Lymph # (Auto) (0.8-4.8) 10^3/u L [place] # (Auto) (0.2-0.9) 10^3/u L Eos # (Auto) (0.0-0.8) 10^3/u L Baso # (Auto) (0.0-0.1) 10^3/u L Nucleated RBC % (a uto) % Nucleated RBCs # /100WBC D-Dimer (0-0.59) ug/mIFE U Specimen Type Arterial Sample Site Brachial, left ABG pH 7.43 (7.35-7.45) ABG pCO2 32.7 L (35-45) mmHg ABG pO2 73.0 L (80.0-100.0) mmH g ABG HCO3 21.5 L (22-26) mmol/L ABG Base Excess -2.4 L (-2.0-2.0) mmol/ L Corbin Test Pos Hematocrit 32.1 L (37-47) % O2 Delivery Device Room air FiO2 21.0 % Licensed Prosthetist ID Cak Sodium (136-145) mmol/L Potassium (3.5-5.1) mmol/L Chloride (98-107) mmol/L Carbon Dioxide (22-29) mmol/L Anion Gap (5-19) BUN (8-23) mg/dL Creatinine (0.5-0.9) mg/dL GFR Calculation Glucose (65-115) mg/dL Calculated Osmolal ity (285-295) mOsm/k g Calcium (8.5-10.5) mg/dL Total Bilirubin (0.15-1.2) mg/dL AST (0-32) U/L ALT (0-33) U/L Alkaline Phosphata se (35-105) IU/L Troponin T Baselin e 8 (0-10) ng/L NT-Pro-B Natriuret Pep (0-450) pg/mL Total Protein (6.6-8.7) g/dL Albumin (3.5-5.2) g/dL Globulin (1.3-4.6) g/dL Lipase (13-60) U/L Imaging Data^: CXR: Attestation: I personally reviewed and interpreted this imaging study as follows: Radiologist's impression: [address] [address] XRay Report Signed Patient: Capri Tobar #: [id number] : 4At#:[id number] Age/Sex: 75 / FADM Date: 10/04/20 Loc: [facility]/Bed: Attending Dr: Ordering Provider/Ordering MD: Amari Fonseca MD, [facility] Date of Service: 10/04/20 Procedure(s): XR chest 1V portable [id number] Accession Number(s): [id number] Report Number: [id number] WS: [id number] XR chest 1V portable [id number] REASON FOR EXAM: SOB FINDINGS: Mild tortuosity of the thoracic aorta without aneurysmal dilatation. Normal heart size. Calcified granulomatous changes bilaterally. No active pulmonary parenchymal or pleural disease. Mild to moderate changes of degenerative spondylosis in the mid and lower thora cic spine. XR/XR chest 1V portable [id number] IMPRESSION: No acute chest abnormality. Chest unchanged compared to 06/25/2020. Dictated By:Irvin Be Jr, MD Signed By:Irvin Be Jr MDSst[facility] Date/Time:10/04/201618 DD/ 14 EKG Data^: EKG 1: Attestation: I personally reviewed and interpreted this EKG as follows: EKG Interpretation Date: 10/04/20 EKG interpretation time: 15:34 Prior EKG tracings: not available for review Interpretation: Sinus tachycardia. Heart rate [address] changes. Q wave in lead III Discharge Plan Discharge Patient Disposition: Home Clinical Impression: Shortness of breath Condition: Stable Prescriptions: Continued acetaminophen [Tylenol Arthritis Pain] 650 mg tablet extended release 1,300 mg PO Q12H RF: 0 levothyroxine 50 mcg capsule See Rx Instructions .ROUTE .COMPLEX RF: 0 simvastatin 20 mg tablet 20 mg PO BEDTIME RF: 0 pantoprazole 40 mg tablet,delayed release (DR/EC) 40 mg PO QAM RF: 0 allopurinol 100 mg tablet 100 mg PO QAM RF: 0 amitriptyline 25 mg tablet 25 mg PO BEDTIME RF: 0 metformin 1,000 mg tablet See Rx Instructions .ROUTE .COMPLEX RF: 0 nitroglycerin [Nitrostat] 0.4 mg tablet, sublingual 0.4 mg sublingual Q5M PRN (Reason: chest pain) Qty: 25 RF: 4 sucralfate 1 gram tablet 1 g PO QID RF: 0 glipizide 5 mg tablet extended release 24hr 5 mg PO QAM RF: 0 ProAir HFA 90 mcg/actuation Hfa Aerosol Inhaler 2 puff INHALATION Q4H PRN (Reason: Shortness Of Breath) RF: 0 pregabalin 75 mg capsule 75 mg PO BID RF: 0 lisinopril 20 mg tablet See Rx Instructions .ROUTE .COMPLEX RF: 0 Plavix 75 mg tablet 75 mg PO QAM RF: 0 Discharge Orders: Discharge ED (Routine); Ordered 10/04/20 Ordered By: Amari Fonseca Referrals: Jenniffer Jenkins MD [Primary Care Provider] - 1-3 days Discharge Diet: Usual diet Discharge Activity: Increase activity as tolerated Patient Instructions: Dyspnea (ED) Activity Restrictions/Additional Instructions: Return for any new or worsening symptoms. Follow-up with your primary care provider within 3 days. Continue home medications. Gradually increase your level of activity to see if that helps your symptoms. Coding Level of Care Code ED Network Architect for Param Carpio
== END 2020-10-04 17:42 | disposition home or self-care (01) ==
PROVIDERS: Emergency Provider Family Medicine; PCP Internal Medicine
DX: R06.02 Shortness of breath (principal); Z79.84 Long term (current) use of oral hypoglycemic drugs; Z79.02 Long term (current) use of antithrombotics/antiplatelets; I25.10 Atherosclerotic heart disease of native coronary artery without angina pectoris; I25.2 Old myocardial infarction; I10 Essential (primary) hypertension; Z87.891 Personal history of nicotine dependence
CPT/HCPCS: 36600; 71045; 80053; 82803; 83690; 83880; 84484; 85025; 85378; 93005; 99283

== ENCOUNTER 2020-10-23 16:39 | Outpatient (CLI) | payer MEDICARE, SELFPAY ==
--- NOTE | 2020-10-23 | MR_ITS ---
WS: [id number] MRI LUMBAR SPINE NONCONTRAST TECHNIQUE: Sagittal T1, T2 and STIR imaging. Axial T1 and T2 imaging. CLINICAL INFORMATION: DEGENERATIVE DISK DISEASE, LUMBARSACRAL SPINE W/RADICULOPATH COMPARISON: None. FINDINGS: Mild lumbar curve. No acute compression. Grade 1 anterolisthesis L4 on L5 and L5 on S1 this is worse L5-S1 measuring 7 mm with chronic sclerotic spondylolysis. L1-L2: Normal. L2-L3: Mild disc bulging with osteophytic ridging. Mild facet arthropathy. Slight impingement on the traversing right L3 nerve root in the subarticular recess. Foramen are patent. Mild central canal cleo nosis. L3-L4: Mild disc bulging with osteophytic ridging. Moderate facet arthropathy. Moderate central canal stenosis. Impingement traversing right L4 nerve root and subarticular recess. Mild right and no sign ificant left foraminal narrowing. Moderate facet arthropathy. L4-L5: Grade 1 anterolisthesis L4 on L5 with severe central canal stenosis. Impingement traversing L 5 nerve roots. Mild right and no significant left foraminal narrowing. Advanced facet arthropathy. L5-S1: Grade 1 anterolisthesis. Severe central canal stenosis. Advanced facet arthropathy. Moderate l eft foraminal narrowing with impingement on the exiting left L5 nerve root. Right foramen is patent. Mild central canal stenosis in the cervical spinal port drier imaging at C4-C6 with moderate spondylitic c hanges. Visualized pelvic bony structures: Normal. Paravertebral soft tissues: Normal. MR/MR lumbar spine wo con* [id number] IMPRESSION: 1. Mild lumbar curve. No acute compression. 2. Grade 1 anterolisthesis L4 on L5 and L5 on S1 worse L5-S1 measuring 7 mm wi th chronic spondylolysis with sclerosis. 3. Mild central canal stenosis L2-3 with impingement traversing right L3 nerve root. 4. Moderate central canal stenosis L3-4. 5. Severe central canal stenosis L4-5 with impingement on the traversing L5 ne rve roots. Advanced facet arthropathy at this level. 6. Severe central canal stenosis L5-S1 with advanced facet arthropathy. 7. Moderate left L5-S1 foraminal narrowing impinges the exiting left L5 nerve root. 8. Mild right L3-4 foraminal narrowing.
== END 2020-10-23 16:40 | disposition home or self-care (01) ==
LOC: RADSHAW 16:41
PROVIDERS: PCP Internal Medicine; Visit Provider Internal Medicine
DX: M51.17 Intervertebral disc disorders with radiculopathy, lumbosacral region (principal); M48.07 Spinal stenosis, lumbosacral region; M48.061 Spinal stenosis, lumbar region without neurogenic claudication
CPT/HCPCS: 72148

== ENCOUNTER → 2020-10-31 08:46 | Outpatient (BNVA) | payer MEDICARE, SELFPAY | PROVIDERS: PCP Internal Medicine; Referring Provider Internal Medicine; Visit Provider Orthopaedic Surgery | DX: M48.062 Spinal stenosis, lumbar region with neurogenic claudication | CPT/HCPCS: 72110 ==

== ENCOUNTER → 2020-11-01 09:13 | Outpatient (BNVA) | payer MEDICARE, SELFPAY | PROVIDERS: PCP Internal Medicine; Visit Provider Internal Medicine | DX: Z01.812 Encounter for preprocedural laboratory examination (principal); Z20.822 Contact with and (suspected) exposure to COVID-19 | CPT/HCPCS: 87635 ==

== ENCOUNTER → 2020-11-05 11:09 | Outpatient (BNVA) | payer MEDICARE, SELFPAY | PROVIDERS: PCP Internal Medicine; Referring Provider Orthopaedic Surgery; Visit Provider Anesthesiology Pain Medicine | DX: M48.062 Spinal stenosis, lumbar region with neurogenic claudication (principal); M54.42 Lumbago with sciatica, left side | CPT/HCPCS: 99205 ==

== ENCOUNTER 2020-11-06 11:04 | Outpatient (CLI) | payer MEDICARE, SELFPAY ==
--- NOTE | 2020-11-06 11:32 | PFTS_ITS ---
Date of Study:11/06/20 Date of Dictation: MECHANICS: Forced vital capacity (FVC) is normal. Forced expiratory volume in one second (FEV1) is normal. FEV1/FVC is reduced. FLOW VOLUME LOOP: Mild scooping. LUNG VOLUMES: Not measured DIFFUSING CAPACITY FOR CARBON MONOXIDE: Not measured INTERPRETATION: The postbronchodilator spirometry is consistent with mild obstruction. There is no significant postbronchodilator response. MTDD
== END 2020-11-06 11:05 | disposition home or self-care (01) ==
PROVIDERS: PCP Internal Medicine; Visit Provider Internal Medicine
DX: J44.9 Chronic obstructive pulmonary disease, unspecified (principal)
CPT/HCPCS: 94060; J7611

== ENCOUNTER → 2020-12-05 10:19 | Day surgery (SDC) | payer MEDICARE, SELFPAY ==
[2020-12-05 11:00] VITALS: BP 108/64; PULSE 92; RESP 18; TEMP 36.6; O2SAT 96
[2020-12-05] MEDS: ferric carboxy (IVPB) 750 MG in sodium chloride 0.9% (100 ml) 100 ML 345 MG IV (11:10)
== END ==
LOC: GILAB 10:20
PROVIDERS: PCP Internal Medicine; Visit Provider Internal Medicine
DX: D50.9 Iron deficiency anemia, unspecified (principal)
CPT/HCPCS: 96365; J1439

== ENCOUNTER → 2020-12-09 13:09 | Outpatient (BNVA) | payer MEDICARE, SELFPAY | PROVIDERS: PCP Internal Medicine; Visit Provider Anesthesiology Pain Medicine | DX: Z01.812 Encounter for preprocedural laboratory examination (principal); M48.062 Spinal stenosis, lumbar region with neurogenic claudication; M54.16 Radiculopathy, lumbar region; E11.9 Type 2 diabetes mellitus without complications | CPT/HCPCS: 64483; 64484; J1100; J3490 ==

== ENCOUNTER → 2020-12-12 10:10 | Day surgery (SDC) | payer MEDICARE, SELFPAY ==
[2020-12-12] MEDS: ferric carboxy (IVPB) 750 MG in sodium chloride 0.9% (100 ml) 100 ML 345 MG IV (10:45)
[2020-12-12 10:56] VITALS: BP 121/66; PULSE 87; RESP 20; TEMP 36.8; O2SAT 94; BMI 34.5
== END ==
LOC: GILAB 10:11
PROVIDERS: PCP Internal Medicine; Visit Provider Internal Medicine
DX: D50.9 Iron deficiency anemia, unspecified (principal)
CPT/HCPCS: 96365; J1439

== ENCOUNTER → 2020-12-13 09:20 | Outpatient (BNVA) | payer MEDICARE, SELFPAY | PROVIDERS: PCP Internal Medicine; Visit Provider Surgery | DX: Z01.812 Encounter for preprocedural laboratory examination (principal); Z20.822 Contact with and (suspected) exposure to COVID-19 | CPT/HCPCS: 87635 ==

== ENCOUNTER 2020-12-19 08:19 | Day surgery (SDC) | payer MEDICARE, SELFPAY ==
[2020-12-17 14:21] VITALS: BMI 34.2
--- NOTE | 2020-12-19 08:45 | ANES.PREANE2 ---
Pre-Anesthetic Assessment Pre-Anesthetic Assessment: Height/Weight: Height 1.6 m Weight 87.543 kg Preop Diagnosis: Claudication bilaterally with chronically occluded left iliac, more on left Proposed Procedure: Operation Date: 12/19/20 09:45 Proposed Procedures p EGD [id number] k92.1(Not Applicable) - Wade Guillermo MD s Colonoscopy(Not Applicable) - Wade Guillermo MD Was Beta Breanna taken within 24 hours: N/A Was Clonidine taken within 24 hours: N/A Social: Social History: Tobacco and No alcohol Exam: Pre-Anes Outpt Exam: alert, oriented x 3 and regular rate & rhythm Airway: Submandibular: WNL Cervical ROM: WNL MP: 2 Dentition: False (upper) Pulmonary: Pulmonary: COPD CV/HEM: CV/HEM: CAD, HTN, OR and PVD GI: GI: GERD Metabolic: Metabolic: DM, Hyperlipidemia and Morbid obesity Anesthetic Plan: ASA status: 3 Anesthesia: MAC Risk of > 500 ml blood loss (7ml/kg in children): No PFSH Anesthesia PFSH: Medical History Coronary artery disease History of OR (myocardial infarction) HTN (hypertension) PAD (peripheral artery disease) Surgical History H/O section History of cholecystectomy S/P appendectomy S/P breast biopsy S/P femoral-popliteal bypass surgery S/P PTCA (percutaneous transluminal coronary angioplasty) Family History Other CAD (coronary artery disease) Cancer Diabetes Hypertension Stroke Social History Smoking and tobacco status: former smoker History of recent travel: No Data Anesthesia Cardiac Studies: No Data to Display
[2020-12-19 09:08] VITALS: BP 93/64; PULSE 99; RESP 18; TEMP 36.3; O2SAT 96
[2020-12-19] MEDS: ondansetron 2 mg/ML SDV 2 mL 4 MG IVP (09:24)
[2020-12-19] MEDS: sodium chloride 0.9% 1,000 ML 30 ML IV (09:24)
[2020-12-19 09:26] LABS: Glucose Point of Care 170 mg/dL (70-110)
--- NOTE | 2020-12-19 10:17 | W.PM.OPSUD ---
Surgery/Procedure H&P Update DATE OF PROCEDURE: December 19, 2020 DATE H&P PERFORMED: 11/26/20 H&P UPDATE INFORMATION: I have reviewed H&P completed within last 30 days, I have examined patient prior to procedure and No changes to prior documentation PREOP DIAGNOSIS: panendoscopy PLANNED PROCEDURE: Operation Date: 12/19/20 09:45 Proposed Procedures p EGD [id number] k92.1(Not Applicable) - Wade Guillermo MD s Colonoscopy(Not Applicable) - Wade Guillermo MD
[2020-12-19 11:00] VITALS: BP 80/49; PULSE 80; RESP 16; TEMP 36.2; O2SAT 89
[2020-12-19 11:16] VITALS: BP 97/51; PULSE 84; RESP 18; TEMP 36.4; O2SAT 91
--- NOTE | 2020-12-19 14:49 | ANE.PACU2 ---
Inpatient post-anesthesia follow up: Airway intact: Yes Vital signs: Temperature 97.6 F Pulse Rate 84 Respiratory Rate 18 Blood Pressure 97/51 Pulse Oximetry 91 Oxygen Delivery Me thod Room Air Oxygen Flow Rate 3 Fraction of Inspir ed Oxygen Hydration adequate: Yes Nausea and vomiting: No Pain level: 1 Mental status: Baseline
== END 2020-12-19 11:26 | disposition home or self-care (01) ==
PROVIDERS: PCP Internal Medicine; Visit Provider Surgery
PROC: 0DJ08ZZ Inspection of Upper Intestinal Tract, Via Natural or Artificial Opening Endoscopic (ICD-10-PCS; CPT 43235; principal; 2020-12-19 09:45)
PROC: 0DJD8ZZ Inspection of Lower Intestinal Tract, Via Natural or Artificial Opening Endoscopic (ICD-10-PCS; CPT 45378; 2020-12-19 09:45)
DX: K92.1 Melena (principal); D50.9 Iron deficiency anemia, unspecified; K29.70 Gastritis, unspecified, without bleeding; K57.30 Diverticulosis of large intestine without perforation or abscess without bleeding; K64.8 Other hemorrhoids; J44.9 Chronic obstructive pulmonary disease, unspecified; I25.10 Atherosclerotic heart disease of native coronary artery without angina pectoris; I25.2 Old myocardial infarction; I10 Essential (primary) hypertension; K21.9 Gastro-esophageal reflux disease without esophagitis; E11.9 Type 2 diabetes mellitus without complications; E78.5 Hyperlipidemia, unspecified; E66.01 Morbid (severe) obesity due to excess calories; Z68.34 Body mass index [BMI] 34.0-34.9, adult; Z87.891 Personal history of nicotine dependence
CPT/HCPCS: 36416; 43239; 45378; 82962; 88305; 96361; 96374; J2405; J2704; J7030

== ENCOUNTER 2021-03-07 15:38 | Emergency (ER) | payer MEDICARE, SELFPAY ==
[2021-03-07 16:46] VITALS: BP 123/75; PULSE 101; RESP 19; TEMP 36.7; O2SAT 90
--- NOTE | 2021-03-07 17:08 | W.ED.GENADLT ---
HPI - General Adult General: Chief complaint: General Medical Stated complaint: r sided face and jaw pain Time Seen by Provider: 03/07/21 16:58 History of Present Illness: HPI narrative: Patient complains about transient general neuralgia pain. She has had this pain for over 4 years. Said her leg is not been working here recently. She did not get seen by Dr. Thompson's office just she just showed up there and they told her to come to the ER. MD complaint: Facial pain Onset (ago): year(s) Location: face Radiation: non-radiation Severity: moderate Severity scale (1-10): 4 Quality: stabbing Pain Consistency: constant Exacerbating factors: movement Associated symptoms: Reports no associated symptoms; Deny chest pain, dyspnea, headache(s), nausea, rash or vomiting Review of Systems Const: Denies: fever(s), chills or body aches Eyes: Denies: change in vision or blurry vision ENMT: Denies: throat pain or nasal congestion Card: Denies: chest pain or dyspnea on exertion Resp: Denies: dyspnea, productive cough or non-productive cough GI: Denies: abdominal pain, nausea or vomiting Musc: Denies: extremity pain Skin/Breast: Denies: rash Neuro: Reports: other (Pain to right side of her face skin hurts hurts for her to talk. Has a his); Denies: headache(s) Psych: Denies: anxiety or depression Alfredo/Lymph: Denies: easy bruising PFSH ED PFSH: Medical History Coronary artery disease History of ND (myocardial infarction) HTN (hypertension) PAD (peripheral artery disease) Surgical History H/O section H/O esophagogastroduodenoscopy (12/19/20) Gastric erosions History of cholecystectomy S/P appendectomy S/P breast biopsy S/P femoral-popliteal bypass surgery S/P PTCA (percutaneous transluminal coronary angioplasty) Status post colonoscopy (12/19/20) Extensive diverticulosis Family History Other CAD (coronary artery disease) Cancer Diabetes Hypertension Stroke Social History Smoking and tobacco status: former smoker History of recent travel: No Physical Exam Const: COMMON NORMALS: no acute distress, average body habitus and patient oriented x3 HENMT: COMMON NORMALS: normocephalic HEAD & SCALP: normal to inspection and normocephalic FACE & SINUS: normal facial exam Eye: COMMON NORMALS: conjunctivae normal GENERAL EYE: appearance normal, both eyes and all related structures CONJUNCTIVA: Yes conjunctivae normal Neck/C-Spine: COMMON NORMALS: no JVD Chest: COMMONS NORMALS: normal inspection of the chest Resp: COMMON NORMALS: normal respiratory effort and clear to auscultation bilaterally AUSCULTATION: clear to auscultation bilaterally Cardio: COMMON NORMALS: no JVD, regular rate and regular rhythm RATE: regular rate RHYTHM: regular rhythm GI: COMMON NORMALS: Normal to inspection, nondistended, normoactive bowel sounds present Extremity: COMMON NORMALS: normal to inspection and full ROM Neuro: COMMON NORMALS: patient oriented x3 Skin: NARRATIVE SKIN EXAM: Slight rash under her eye. Is tender to the skin right cheek down by mouth is able to talk. No lesions noted inside the mouth. No swelling erythema noted Course Vital Signs: Vital signs: Vital Signs Temperature 98.1 F 03/07/21 16:46 Pulse Rate 101 H 03/07/21 16:46 Respiratory Rate 19 H 03/07/21 16:46 Blood Pressure 123/75 03/07/21 16:46 Pulse Oximetry 90 03/07/21 16:46 Discharge Plan Discharge Prescriptions: No Action acetaminophen [Tylenol Arthritis Pain] 650 mg tablet extended release 1,300 mg PO Q12H RF: 0 levothyroxine 50 mcg capsule 25 mcg PO DAILY RF: 0 metformin 500 mg tablet 500 mg PO DAILY RF: 0 Jardiance 25 mg tablet 25 mg PO DAILY RF: 0 simvastatin 20 mg tablet 20 mg PO BEDTIME RF: 0 pantoprazole 40 mg tablet,delayed release (DR/EC) 40 mg PO QAM RF: 0 allopurinol 100 mg tablet 100 mg PO QAM RF: 0 amitriptyline 25 mg tablet 25 mg PO BEDTIME RF: 0 nitroglycerin [Nitrostat] 0.4 mg tablet, sublingual 0.4 mg sublingual Q5M PRN (Reason: chest pain) Qty: 25 RF: 4 Lantus Solostar U-100 Insulin 100 unit/mL (3 mL) insulin pen 25 unit SUBCUT DAILY RF: 0 glipizide 5 mg tablet extended release 24hr 5 mg PO QAM RF: 0 albuterol sulfate [ProAir HFA] 90 mcg/actuation Hfa Aerosol Inhaler 2 puff INHALATION Q4H PRN (Reason: Shortness Of Breath) RF: 0 pregabalin 75 mg capsule 75 mg PO BID RF: 0 lisinopril 20 mg tablet See Rx Instructions .ROUTE .COMPLEX RF: 0 Coding Level of Care Code ED Carbon Brusher Assembler for Reggieg Shirin
[2021-03-07 18:04] VITALS: RESP 19; TEMP 36.7; O2SAT 90
== END 2021-03-07 18:04 | disposition home or self-care (01) ==
PROVIDERS: Emergency Provider Nurse Practitioner Family; PCP Internal Medicine
DX: R68.84 Jaw pain (principal); Z79.4 Long term (current) use of insulin; I25.10 Atherosclerotic heart disease of native coronary artery without angina pectoris; I25.2 Old myocardial infarction; I10 Essential (primary) hypertension; Z87.891 Personal history of nicotine dependence
CPT/HCPCS: 99281

== ENCOUNTER 2021-03-08 21:06 | Emergency (ER) | payer MEDICARE, SELFPAY ==
[2021-03-08 21:07] VITALS: BP 199/98; PULSE 121; RESP 18; TEMP 36.5; O2SAT 96; BMI 31.7
[2021-03-08 21:40] VITALS: BP 165/88; PULSE 108; RESP 18; O2SAT 96
--- NOTE | 2021-03-08 21:44 | ED_ITS ---
HPI - General Adult General: Chief complaint: Dental/Oral Stated complaint: chest pain Time Seen by Provider: 03/08/21 21:33 History of Present Illness: HPI narrative: Patient states her trigeminal neuralgia is still painful and new medications not help with her pain. Requesting a shot to help with her discomfort. Pain right side of face. Onset (ago): day(s) Location: face Severity: moderate Severity scale (1-10): 6 Quality: burning and stabbing Pain Consistency: constant Relieving factors: none Associated symptoms: Reports no associated symptoms; Deny chest pain, dyspnea, headache(s), nausea, rash or vomiting Review of Systems Const: Denies: fever(s), chills or body aches Eyes: Denies: change in vision or blurry vision ENMT: Denies: throat pain or nasal congestion Card: Denies: chest pain or dyspnea on exertion Resp: Denies: dyspnea, productive cough or non-productive cough GI: Denies: abdominal pain, nausea or vomiting Musc: Denies: extremity pain Skin/Breast: Reports: skin pain and skin tenderness; Denies: rash Neuro: Denies: headache(s) Psych: Denies: anxiety or depression Alfredo/Lymph: Denies: easy bruising PFSH ED PFSH: Medical History Coronary artery disease History of VT (myocardial infarction) HTN (hypertension) PAD (peripheral artery disease) Surgical History H/O section H/O esophagogastroduodenoscopy (12/19/20) Gastric erosions History of cholecystectomy S/P appendectomy S/P breast biopsy S/P femoral-popliteal bypass surgery S/P PTCA (percutaneous transluminal coronary angioplasty) Status post colonoscopy (12/19/20) Extensive diverticulosis Family History Other CAD (coronary artery disease) Cancer Diabetes Hypertension Stroke Social History Smoking and tobacco status: former smoker History of recent travel: No Physical Exam Const: COMMON NORMALS: no acute distress, average body habitus and patient oriented x3 HENMT: COMMON NORMALS: normocephalic HEAD & SCALP: normal to inspection and normocephalic FACE & SINUS: normal facial exam Eye: COMMON NORMALS: conjunctivae normal GENERAL EYE: appearance normal, both eyes and all related structures CONJUNCTIVA: Yes conjunctivae normal Neck/C-Spine: COMMON NORMALS: no JVD Chest: COMMONS NORMALS: normal inspection of the chest Resp: COMMON NORMALS: normal respiratory effort and clear to auscultation bilaterally AUSCULTATION: clear to auscultation bilaterally Cardio: COMMON NORMALS: no JVD, regular rate and regular rhythm RATE: regular rate RHYTHM: regular rhythm GI: COMMON NORMALS: Normal to inspection, nondistended, normoactive bowel sounds present Extremity: COMMON NORMALS: normal to inspection and full ROM Neuro: COMMON NORMALS: patient oriented x3 Skin: NARRATIVE SKIN EXAM: Tenderness to the right side of face involving the root of the trigeminal nerve. Rash still present underneath the eye but no change from yesterday. Mouth looks okay no oral lesions. No neck pain noted. No lymphadenopathy noted. Course Vital Signs: Vital signs: Vital Signs Temperature 97.7 F 03/08/21 21:07 Pulse Rate 86 03/08/21 22:56 Respiratory Rate 18 03/08/21 22:56 Blood Pressure 136/66 03/08/21 22:56 Pulse Oximetry 94 03/08/21 22:56 MDM - General Adult MDM Narrative: Medical decision making narrative: Patient responded pain med well. Able to converse freely without any pain when she is talking this time. Patient instructed increase Neurontin and follow-up with her family medical provider on Wednesday. Discharge Plan Discharge Patient Disposition: Home Clinical Impression: Trigeminal neuralgia Condition: Stable Prescriptions: New hydrocodone-acetaminophen 5-325 mg tablet 1 tab PO TID PRN (Reason: pain) Qty: 14 RF: 0 No Action acetaminophen [Tylenol Arthritis Pain] 650 mg tablet extended release 1,300 mg PO Q12H RF: 0 levothyroxine 50 mcg capsule 25 mcg PO DAILY RF: 0 metformin 500 mg tablet 500 mg PO DAILY RF: 0 Jardiance 25 mg tablet 25 mg PO DAILY RF: 0 simvastatin 20 mg tablet 20 mg PO BEDTIME RF: 0 pantoprazole 40 mg tablet,delayed release (DR/EC) 40 mg PO QAM RF: 0 allopurinol 100 mg tablet 100 mg PO QAM RF: 0 amitriptyline 25 mg tablet 25 mg PO BEDTIME RF: 0 nitroglycerin [Nitrostat] 0.4 mg tablet, sublingual 0.4 mg sublingual Q5M PRN (Reason: chest pain) Qty: 25 RF: 4 Lantus Solostar U-100 Insulin 100 unit/mL (3 mL) insulin pen 25 unit SUBCUT DAILY RF: 0 glipizide 5 mg tablet extended release 24hr 5 mg PO QAM RF: 0 albuterol sulfate [ProAir HFA] 90 mcg/actuation Hfa Aerosol Inhaler 2 puff INHALATION Q4H PRN (Reason: Shortness Of Breath) RF: 0 lisinopril 20 mg tablet See Rx Instructions .ROUTE .COMPLEX RF: 0 Medrol (Delio) 4 mg tablets,dose pack See Rx Instructions .ROUTE .COMPLEX Qty: 21 RF: 0 gabapentin 100 mg capsule 100 mg PO TID Qty: 21 RF: 0 Discharge Orders: Discharge ED (Routine); Ordered 03/08/21 Ordered By: Michael Saavedra Referrals: Jenniffer Jenkins MD [Primary Care Provider] - Patient Instructions: Opioid Safety Activity Restrictions/Additional Instructions: Follow-up with medical provider as directed. Take medications as prescribed. Return to the ER or your medical provider if condition worsens. Please read and understand discharge instructions. If any questions ask please. Take 300 mg of your Neurontin 3 times a day and call your family medical provider on Wednesday to see if they want to continue that prescription. Coding Level of Care Code ED Healthcare Project Manager for Param Fwd Exam Comprehensive
[2021-03-08 21:48] VITALS: RESP 20
[2021-03-08] MEDS: ondansetron 2 mg/ML SDV 2 mL 4 MG IM (21:48)
[2021-03-08] MEDS: morphine 4 mg/mL SDV 1 mL IM (21:48)
[2021-03-08 22:56] VITALS: BP 136/66; PULSE 86; RESP 18; O2SAT 94
== END 2021-03-08 22:57 | disposition home or self-care (01) ==
PROVIDERS: Emergency Provider Nurse Practitioner Family; PCP Internal Medicine
DX: G50.0 Trigeminal neuralgia (principal); Z79.4 Long term (current) use of insulin; I25.10 Atherosclerotic heart disease of native coronary artery without angina pectoris; I25.2 Old myocardial infarction; I10 Essential (primary) hypertension; Z87.891 Personal history of nicotine dependence
CPT/HCPCS: 96372; 99283; J2270; J2405

== ENCOUNTER 2021-05-05 16:42 | Emergency (ER) | payer MEDICARE, SELFPAY ==
[2021-05-05 17:03] VITALS: BP 153/85; PULSE 118; RESP 22; TEMP 37; O2SAT 89; BMI 30.2
--- NOTE | 2021-05-05 17:16 | XRR_ITS ---
PROCEDURE INFORMATION: Exam: XR Chest Exam date and time: 05/05/2021 5:16 PM Age: 76 years old Clinical indication: Shortness of breath; Additional info: SOB TECHNIQUE: Imaging protocol: XR of the chest. Views: 1 view. COMPARISON: CR XR chest 1V portable [id number] 10/04/2020 4:04 PM FINDINGS: Lungs: Hyperinflated lungs. No consolidation. Pleural spaces: Unremarkable. No pleural effusion. No pneumothorax. Heart/Mediastinum: Unremarkable. No cardiomegaly. Bones/joints: Unremarkable. XR/XR chest 1V portable [id number] IMPRESSION: Stable exam, no acute findings. Radiation Dose CTDIVOL = (mGy): DLP = (mGy-cm)
--- NOTE | 2021-05-05 18:06 | ECG_ITS ---
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 Measurements Intervals [place] Rate: 103 P: 64 [place]: 165 QRS: 23 QRSD: 94 T: 24 QT: 329 QTc: 432 Interpretive Statements SINUS TACHYCARDIA POSSIBLE INFERIOR MYOCARDIAL INFARCTION , PROBABLY OLD [30 ms Q WAVE IN II/aVF] ABNORMAL RHYTHM ECG Compared to ECG 10/04/2020 15:34:45 Myocardial infarct finding now present ST (T wave) deviation no longer present Electronically Signed On 05-05-2021 19:12:36 CDT by Tanja Jenkins M.D. [id number]
--- NOTE | 2021-05-05 18:06 | ED_ITS ---
Documented by User: Beverley Acharya MD 05/05/21 20:48 HPI - Abdominal Pain General: Source: patient Mode of arrival: ambulatory Limitations: no limitations History of Present Illness: HPI narrative: 76-year-old female states she has been in upper abdominal pain over the last day. States that sharp pain she rates a 6 out of 10. Denies any worsening improving factors. She has had a history of a cholecystectomy many years ago. She states she is also had some slight shortness of breath. States she previously wore oxygen but was taken off of it. Patient is requiring 2 L here. She denies any cough fever or chest pain. Associated Symptoms: Denies chills, dysuria and fever(s) Review of Systems Const: Denies: fever(s), chills, body aches or change in appetite Eyes: Denies: blurry vision or eye discomfort ENMT: Denies: throat pain or dental pain Card: Denies: chest pain Resp: Reports: dyspnea GI: Reports: abdominal pain : Denies: dysuria Musc: Denies: neck pain or back pain Skin/Breast: Denies: rash Neuro: Denies: headache(s) Psych: Denies: depression Alfredo/Lymph: Denies: easy bruising All/Imm: Denies: urticaria PFSH ED PFSH: Medical History Coronary artery disease History of AR (myocardial infarction) HTN (hypertension) PAD (peripheral artery disease) Surgical History H/O section H/O esophagogastroduodenoscopy (12/19/20) Gastric erosions History of cholecystectomy S/P appendectomy S/P breast biopsy S/P femoral-popliteal bypass surgery S/P PTCA (percutaneous transluminal coronary angioplasty) Status post colonoscopy (12/19/20) Extensive diverticulosis Family History Other CAD (coronary artery disease) Cancer Diabetes Hypertension Stroke Social History Smoking and tobacco status: former smoker History of recent travel: No Physical Exam Const: COMMON NORMALS: no acute distress, patient oriented x3 and healthy appearing HENMT: COMMON NORMALS: normocephalic and atraumatic HEAD & SCALP: normocephalic and atraumatic Eye: COMMON NORMALS: Equal, round and reactive pupils present and EOMs intact bilaterally PUPIL: Yes Equal, round and reactive pupils present Neck/C-Spine: COMMON NORMALS: full ROM and supple Chest: COMMONS NORMALS: normal inspection of the chest and normal palpation of entire chest wall Resp: COMMON NORMALS: normal respiratory effort, No retractions, No use of accessory muscles and clear to auscultation bilaterally AUSCULTATION: clear to auscultation bilaterally Cardio: COMMON NORMALS: regular rate, regular rhythm and No murmurs present (Cardio) RATE: regular rate RHYTHM: regular rhythm GI: COMMON NORMALS: Normal to inspection, nondistended, normoactive bowel sounds present, Soft to palpation and no masses PALPATION: Yes Soft to palpation and Yes Tenderness to palpation present (GI) Details: RUQ Extremity: COMMON NORMALS: normal to inspection and full ROM Neuro: COMMON NORMALS: patient oriented x3, moves all extremities and no focal motor deficits Psych: COMMON NORMALS: mental status grossly normal, Normal thought process present and cooperative THOUGHT PROCESS: Normal thought process present Skin: COMMON NORMALS: no rashes or lesions noted and no wounds GENERAL SKIN EXAM: no rashes or lesions noted Course Vital Signs: Vital signs: Vital Signs Temperature 98.6 F 05/05/21 17:03 Pulse Rate 85 05/05/21 21:02 Respiratory Rate 24 H 05/05/21 21:02 Blood Pressure 128/85 05/05/21 21:02 Pulse Oximetry 93 05/05/21 21:02 MDM - Abdominal Pain MDM Narrative: Medical decision making narrative: Patient presents with abdominal pain and was found to have diverticulitis on CT scan. She also has a possible pneumonia here. I recommended admission due to her being slightly hypoxic and with her abdominal pain she refuses states she has to get home. We will place her on antibiotics she is return if worsening. Lab Data: Labs: Lab Results 05/05/21 05/05/21 05/05/21 17:54 17:54 17:54 WBC 10.5 10^3/uL H 10 ^3/uL (4.0-10.0) RBC 5.89 10^6/uL H 10 ^6/uL (4.1-5.3) Hgb 16.5 g/dL H g/dL (11.5-15.3) Hct 53.2 % H % (37.0-47.0) MCV 90.3 fl fl (81-99) MCH 28.0 pg pg (28.0-34.0) MCHC 31.0 g/dL g/dL (30.0-36.0) RDW 14.9 % % (12.1-15.1) Plt Count 294 10^3/cmm 10^3 /cmm (130-400) MPV 9.6 fL fL (7.4-10.4) Neut % (Auto) 66.4 % % Lymph % (Auto) 20.2 % % [place] % (Auto) 8.7 % % Eos % (Auto) 3.6 % % Baso % (Auto) 0.8 % % Neut # (Auto) 6.94 10^3/uL 10^3 /uL (1.8-7.7) Lymph # (Auto) 2.1 10^3/uL 10^3/ uL (0.8-4.8) [place] # (Auto) 0.9 10^3/uL 10^3/ uL (0.2-0.9) Eos # (Auto) 0.4 10^3/uL 10^3/ uL (0.0-0.8) Baso # (Auto) 0.1 10^3/uL 10^3/ uL (0.0-0.1) Nucleated RBC % (a uto) 0 % % Nucleated RBCs # 0.0 /100WBC /100W BC Sodium 137 mmol/L mmol/L (136-145) Potassium 4.6 mmol/L mmol/L (3.5-5.1) Chloride 100 mmol/L mmol/L (98-107) Carbon Dioxide 23 mmol/L mmol/L (22-29) Anion Gap 18.6 (5-19) BUN 15 mg/dL mg/dL (8-23) Creatinine 1.0 mg/dL H mg/dL (0.5-0.9) GFR Calculation Not Reportable Glucose 111 mg/dL mg/dL (65-115) Calculated Osmolal ity 286 mOsm/kg mOsm/ kg (285-295) Lactic Acid 1.1 mmol/L mmol/L (0.5-2.2) Calcium 9.8 mg/dL mg/dL (8.5-10.5) Total Bilirubin 0.6 mg/dL mg/dL (0.15-1.2) AST 14 U/L U/L (0-32) ALT 7 U/L U/L (0-33) Alkaline Phosphata se 94 IU/L IU/L (35-105) Troponin T Baselin e Troponin T 120 Min [place] Troponin T NT-Pro-B Natriuret Pep Total Protein 8.1 g/dL g/dL (6.6-8.7) Albumin 4.2 g/dL g/dL (3.5-5.2) Globulin 3.9 g/dL g/dL (1.3-4.6) Urine Color Urine Appearance Urine pH Ur Specific Gravit y Urine Protein Urine Glucose (UA) Urine Ketones Urine Blood Urine Nitrate Urine Bilirubin Urine Urobilinogen Ur Leukocyte Kimberly ase Urine RBC Urine WBC Ur Squamous Epith Cells Amorphous Sediment Urine Bacteria Urine Yeast 05/05/21 05/05/21 05/05/21 17:54 20:08 20:08 WBC RBC Hgb Hct MCV MCH MCHC RDW Plt Count MPV Neut % (Auto) Lymph % (Auto) [place] % (Auto) Eos % (Auto) Baso % (Auto) Neut # (Auto) Lymph # (Auto) [place] # (Auto) Eos # (Auto) Baso # (Auto) Nucleated RBC % (a uto) Nucleated RBCs # Sodium Potassium Chloride Carbon Dioxide Anion Gap BUN Creatinine GFR Calculation Glucose Calculated Osmolal ity Lactic Acid Calcium Total Bilirubin AST ALT Alkaline Phosphata se Troponin T Baselin e 9 ng/L ng/L (0-10) Troponin T 120 Min [place] 9.16 ng/L ng/L (0-10) Delta Troponin T 0.16 ABS# ABS# (0-10) NT-Pro-B Natriuret Pep 58 pg/mL pg/mL (0-450) Total Protein Albumin Globulin Urine Color Urine Appearance Urine pH Ur Specific Gravit y Urine Protein Urine Glucose (UA) Urine Ketones Urine Blood Urine Nitrate Urine Bilirubin Urine Urobilinogen Ur Leukocyte Kimberly ase Urine RBC Urine WBC Ur Squamous Epith Cells Amorphous Sediment Urine Bacteria Urine Yeast 05/05/21 20:25 WBC RBC Hgb Hct MCV MCH MCHC RDW Plt Count MPV Neut % (Auto) Lymph % (Auto) [place] % (Auto) Eos % (Auto) Baso % (Auto) Neut # (Auto) Lymph # (Auto) [place] # (Auto) Eos # (Auto) Baso # (Auto) Nucleated RBC % (a uto) Nucleated RBCs # Sodium Potassium Chloride Carbon Dioxide Anion Gap BUN Creatinine GFR Calculation Glucose Calculated Osmolal ity Lactic Acid Calcium Total Bilirubin AST ALT Alkaline Phosphata se Troponin T Baselin e Troponin T 120 Min [place] Troponin T NT-Pro-B Natriuret Pep Total Protein Albumin Globulin Urine Color Yellow (Yellow) Urine Appearance Hazy A (CLEAR) Urine pH 5 (5-7) Ur Specific Gravit y 1.010 (1.005-1.030) Urine Protein Neg (Negative) Urine Glucose (UA) 4+ H (Normal) Urine Ketones Negative (Negative) Urine Blood Neg (Negative) Urine Nitrate Negative (Negative) Urine Bilirubin Neg (Negative) Urine Urobilinogen Norm mg/dL mg/dL (Negative) Ur Leukocyte Kimberly ase 1+ H (Negative) Urine RBC None /hpf /hpf (0-2) Urine WBC 5-10 /hpf H /hpf (0-5) Ur Squamous Epith Cells 5-10 /hpf H /hpf (0-5) Amorphous Sediment Not Reportable Urine Bacteria 2+ /hpf H /hpf (NONE) Urine Yeast 2+ /hpf H /hpf Imaging Data ^: CXR: Attestation: I personally reviewed and interpreted this imaging study as follows: My impression: no acute abnormality CT Chest: Attestation: I personally reviewed and interpreted this imaging study as follows: Radiologist's impression: [address] [address] [address] Scan Report Signed Patient: Capri Tobar Unit #: [id number] : 1945 Age/Sex: 76 / F ADM Date: 05/05/21 Loc: ER Room/Bed: Attending Dr: Ordering Provider/Ordering MD: Beverley Acharya MD Date of Service: 05/05/21 Procedure(s): CT angio chest w abd pel w con Accession Number(s): [id number] Report Number: [id number] PROCEDURE INFORMATION: Exam: CTA Chest With Contrast Exam date and time: 05/05/2021 6:17 PM Age: 76 years old Clinical indication: Nausea; Shortness of breath; Prior surgery; Surgery type: Tubal, appy, gb; Additional info: Sob/ abd pain TECHNIQUE: Imaging protocol: Computed tomographic angiography of the chest with contrast. 3D rendering (Not supervised by radiologist): MIP and/or 3D reconstructed images were created by the technologist. Radiation optimization: All CT scans at this facility use at least one of these dose optimization techniques: automated exposure control; mA and/or kV adjustment per patient size (includes targeted exams where dose is matched to clinical indication); or iterative reconstruction. Contrast material: VISI 320; Contrast volume: 95 ml; Contrast route: INTRAVENOUS (IV); COMPARISON: CR XR chest 1V portable [id number] 05/05/2021 5:14 PM RADIATION DOSE METRICS: Total DLP (mGy-cm): 1724.35 FINDINGS: Pulmonary arteries: There is no pulmonary embolus. Aorta: Unremarkable. No aortic aneurysm. No aortic dissection. Lungs: There are severe emphysematous changes in the lungs. There is subpleural atelectasis of the dependent portions of the lungs. Very mild interstitial prominence and ground-glass density is noted in the lungs with a mild tree-in-bud pattern compatible with mild pneumonitis versus edema. No dense lobar consolidation. Pleural spaces: Unremarkable. No pneumothorax. No pleural effusion. Heart: Unremarkable. No cardiomegaly. No pericardial effusion. Lymph nodes: Unremarkable. No enlarged lymph nodes. Diaphragm: A small hiatal hernia is present. Bones/joints: Unremarkable. No acute fracture. Soft tissues: Unremarkable. IMPRESSION: 1. There is no pulmonary embolus. 2. Very mild interstitial prominence and ground-glass density is noted in the lungs with a mild tree-in-bud pattern compatible with mild pneumonitis versus edema. Severe emphysematous changes are also noted. PROCEDURE INFORMATION: Exam: CT Abdomen And Pelvis With Contrast Exam date and time: 05/05/2021 6:17 PM Age: 76 years old Clinical indication: Nausea; Shortness of breath; Prior surgery; Surgery type: Tubal, appy, gb; Additional info: Sob/ abd pain TECHNIQUE: Imaging protocol: Computed tomography of the abdomen and pelvis with contrast. Radiation optimization: All CT scans at this facility use at least one of these dose optimization techniques: automated exposure control; mA and/or kV adjustment per patient size (includes targeted exams where dose is matched to clinical indication); or iterative reconstruction. Contrast material: VISI 320; Contrast volume: 95 ml; Contrast route: INTRAVENOUS (IV); COMPARISON: CR XR chest 1V portable [id number] 05/05/2021 5:14 PM RADIATION DOSE METRICS: Total DLP (mGy-cm): 1724.35 FINDINGS: Liver: Unremarkable.No mass. Gallbladder and bile ducts: There has been a cholecystectomy. There is no common bile duct dilation. Pancreas: The pancreas is normal. Spleen: The spleen is normal. Adrenal glands: The adrenal glands are normal. Kidneys and ureters: There is no evidence of hydronephrosis. There is no evidence of renal calcifications. Stomach and bowel: There is a large 3.5 cm duodenal diverticulum containing fluid and air. There is mildly excessive colonic stool content. Extensive diverticulosis is present in the distal colon. There is no evidence of colitis. There is trace induration of the fat adjacent to a diverticulum in the sigmoid colon that may reflect very early/mild diverticulitis. Appendix: There has been an appendectomy. Intraperitoneal space: There is a fem-fem graft in the lower abdomen. Vasculature: The aorta demonstrates mild atherosclerotic calcification. Severe atherosclerotic changes of the distal aorta and common iliac arteries are noted. Lymph nodes: Unremarkable.No enlarged lymph nodes. Urinary bladder: There is mild bladder wall thickening. This may be related to incomplete distention. Reproductive: Uterus and left ovary are unremarkable. There is a 1.6 cm right ovarian cyst. Bones/joints: There are moderate to severe degenerative changes in the spine especially at L5-S1 where there is a degenerative grade 1 spondylolisthesis of L5 on S1. No acute bony abnormality. There is levoscoliosis of the lumbar spine. There is severe stenosis of the spinal canal at L5-S1 due to the degenerative spondylolisthesis, bony endplate and facet hypertrophy. Moderate to severe stenosis is also noted at L3-L4 and L4-L5 due to the marked bony proliferative changes and small disc bulges. Soft tissues: There is a fat-containing umbilical hernia. CT/CT angio chest w abd pel w con IMPRESSION: 1. There is trace induration of the fat adjacent to a diverticulum in the sigmoid colon that may reflect very early/mild diverticulitis. 2. No additional acute abnormality. Multiple incidental findings are noted as above. Radiation Dose CTDIVOL = (mGy): DLP = 1724.35 1724.35 (mGy-cm) Dictated By: Roslyn Hamilton Signed By: Roslyn Hamilton Signed Date/Time: 05/05/212021 EKG Data ^: EKG 1: Attestation: I personally reviewed and interpreted this EKG as follows: EKG interpretation date: 05/05/21 EKG interpretation time: 18:03 Interpretation: sinus tach hr [address] or t wave abnormalities qrs 94 qtc 389 Discharge Plan Discharge Patient Disposition: Home Clinical Impression: Diverticulitis Condition: Stable Prescriptions: New hydrocodone-acetaminophen 5-325 mg tablet 1 tab PO Q6H PRN (Reason: pain) Qty: 14 RF: 0 ondansetron 4 mg tablet,disintegrating 4 mg PO Q6H PRN (Reason: nausea and vomiting) Qty: 14 RF: 0 Flagyl 500 mg tablet 500 mg PO Q8H 7 Days Qty: 21 RF: 0 No Action acetaminophen [Tylenol Arthritis Pain] 650 mg tablet extended release 1,300 mg PO Q12H RF: 0 levothyroxine 50 mcg capsule 25 mcg PO DAILY RF: 0 metformin 500 mg tablet 500 mg PO DAILY RF: 0 Jardiance 25 mg tablet 25 mg PO DAILY RF: 0 simvastatin 20 mg tablet 20 mg PO BEDTIME RF: 0 pantoprazole 40 mg tablet,delayed release (DR/EC) 40 mg PO QAM RF: 0 allopurinol 100 mg tablet 100 mg PO QAM RF: 0 amitriptyline 25 mg tablet 25 mg PO BEDTIME RF: 0 nitroglycerin [Nitrostat] 0.4 mg tablet, sublingual 0.4 mg sublingual Q5M PRN (Reason: chest pain) Qty: 25 RF: 4 Lantus Solostar U-100 Insulin 100 unit/mL (3 mL) insulin pen 25 unit SUBCUT DAILY RF: 0 glipizide 5 mg tablet extended release 24hr 5 mg PO QAM RF: 0 albuterol sulfate [ProAir HFA] 90 mcg/actuation Hfa Aerosol Inhaler 2 puff INHALATION Q4H PRN (Reason: Shortness Of Breath) RF: 0 lisinopril 20 mg tablet See Rx Instructions .ROUTE .COMPLEX RF: 0 Medrol (Delio) 4 mg tablets,dose pack See Rx Instructions .ROUTE .COMPLEX Qty: 21 RF: 0 gabapentin 100 mg capsule 100 mg PO TID Qty: 21 RF: 0 hydrocodone-acetaminophen 5-325 mg tablet 1 tab PO TID PRN (Reason: pain) Qty: 14 RF: 0 Discharge Orders: Discharge ED (Routine); Ordered 05/05/21 Ordered By: Beverley Acharya Referrals: Jenniffer Jenkins MD [Primary Care Provider] - 1-3 days Discharge Diet: Advance as tolerated Discharge Activity: Resume usual activity Patient Instructions: Diverticulitis (ED), Opioid Safety Coding Level of Care Code ED Assistant To The Ceo for 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 Documented by User: Jerry Cuevas MD 05/08/21 17:20 PFSH ED PFSH: Medical History Coronary artery disease History of AR (myocardial infarction) HTN (hypertension) PAD (peripheral artery disease) Surgical History H/O section H/O esophagogastroduodenoscopy (12/19/20) Gastric erosions History of cholecystectomy S/P appendectomy S/P breast biopsy S/P femoral-popliteal bypass surgery S/P PTCA (percutaneous transluminal coronary angioplasty) Status post colonoscopy (12/19/20) Extensive diverticulosis Family History Other CAD (coronary artery disease) Cancer Diabetes Hypertension Stroke Social History Smoking and tobacco status: former smoker History of recent travel: No Course Vital Signs: Vital signs: Vital Signs Temperature 98.6 F 10/18/21 17:03 Pulse Rate 85 05/05/21 21:02 Respiratory Rate 24 H 05/05/21 21:02 Blood Pressure 128/85 05/05/21 21:02 Pulse Oximetry 93 05/05/21 21:02 MDM - Abdominal Pain Lab Data: Labs: Lab Results 05/05/21 05/05/21 05/05/21 17:54 17:54 17:54 WBC 10.5 10^3/uL H 10 ^3/uL (4.0-10.0) RBC 5.89 10^6/uL H 10 ^6/uL (4.1-5.3) Hgb 16.5 g/dL H g/dL (11.5-15.3) Hct 53.2 % H % (37.0-47.0) MCV 90.3 fl fl (81-99) MCH 28.0 pg pg (28.0-34.0) MCHC 31.0 g/dL g/dL (30.0-36.0) RDW 14.9 % % (12.1-15.1) Plt Count 294 10^3/cmm 10^3 /cmm (130-400) MPV 9.6 fL fL (7.4-10.4) Neut % (Auto) 66.4 % % Lymph % (Auto) 20.2 % % [place] % (Auto) 8.7 % % Eos % (Auto) 3.6 % % Baso % (Auto) 0.8 % % Neut # (Auto) 6.94 10^3/uL 10^3 /uL (1.8-7.7) Lymph # (Auto) 2.1 10^3/uL 10^3/ uL (0.8-4.8) [place] # (Auto) 0.9 10^3/uL 10^3/ uL (0.2-0.9) Eos # (Auto) 0.4 10^3/uL 10^3/ uL (0.0-0.8) Baso # (Auto) 0.1 10^3/uL 10^3/ uL (0.0-0.1) Nucleated RBC % (a uto) 0 % % Nucleated RBCs # 0.0 /100WBC /100W BC Sodium 137 mmol/L mmol/L (136-145) Potassium 4.6 mmol/L mmol/L (3.5-5.1) Chloride 100 mmol/L mmol/L (98-107) Carbon Dioxide 23 mmol/L mmol/L (22-29) Anion Gap 18.6 (5-19) BUN 15 mg/dL mg/dL (8-23) Creatinine 1.0 mg/dL H mg/dL (0.5-0.9) GFR Calculation Not Reportable Glucose 111 mg/dL mg/dL (65-115) Calculated Osmolal ity 286 mOsm/kg mOsm/ kg (285-295) Lactic Acid 1.1 mmol/L mmol/L (0.5-2.2) Calcium 9.8 mg/dL mg/dL (8.5-10.5) Total Bilirubin 0.6 mg/dL mg/dL (0.15-1.2) AST 14 U/L U/L (0-32) ALT 7 U/L U/L (0-33) Alkaline Phosphata se 94 IU/L IU/L (35-105) Troponin T Baselin e Troponin T 120 Min [place] Troponin T NT-Pro-B Natriuret Pep Total Protein 8.1 g/dL g/dL (6.6-8.7) Albumin 4.2 g/dL g/dL (3.5-5.2) Globulin 3.9 g/dL g/dL (1.3-4.6) Urine Color Urine Appearance Urine pH Ur Specific Gravit y Urine Protein Urine Glucose (UA) Urine Ketones Urine Blood Urine Nitrate Urine Bilirubin Urine Urobilinogen Ur Leukocyte Kimberly ase Urine RBC Urine WBC Ur Squamous Epith Cells Amorphous Sediment Urine Bacteria Urine Yeast 05/05/21 05/05/21 05/05/21 17:54 20:08 20:08 WBC RBC Hgb Hct MCV MCH MCHC RDW Plt Count MPV Neut % (Auto) Lymph % (Auto) [place] % (Auto) Eos % (Auto) Baso % (Auto) Neut # (Auto) Lymph # (Auto) [place] # (Auto) Eos # (Auto) Baso # (Auto) Nucleated RBC % (a uto) Nucleated RBCs # Sodium Potassium Chloride Carbon Dioxide Anion Gap BUN Creatinine GFR Calculation Glucose Calculated Osmolal ity Lactic Acid Calcium Total Bilirubin AST ALT Alkaline Phosphata se Troponin T Baselin e 9 ng/L ng/L (0-10) Troponin T 120 Min [place] 9.16 ng/L ng/L (0-10) Delta Troponin T 0.16 ABS# ABS# (0-10) NT-Pro-B Natriuret Pep 58 pg/mL pg/mL (0-450) Total Protein Albumin Globulin Urine Color Urine Appearance Urine pH Ur Specific Gravit y Urine Protein Urine Glucose (UA) Urine Ketones Urine Blood Urine Nitrate Urine Bilirubin Urine Urobilinogen Ur Leukocyte Kimberly ase Urine RBC Urine WBC Ur Squamous Epith Cells Amorphous Sediment Urine Bacteria Urine Yeast 05/05/21 20:25 WBC RBC Hgb Hct MCV MCH MCHC RDW Plt Count MPV Neut % (Auto) Lymph % (Auto) [place] % (Auto) Eos % (Auto) Baso % (Auto) Neut # (Auto) Lymph # (Auto) [place] # (Auto) Eos # (Auto) Baso # (Auto) Nucleated RBC % (a uto) Nucleated RBCs # Sodium Potassium Chloride Carbon Dioxide Anion Gap BUN Creatinine GFR Calculation Glucose Calculated Osmolal ity Lactic Acid Calcium Total Bilirubin AST ALT Alkaline Phosphata se Troponin T Baselin e Troponin T 120 Min [place] Troponin T NT-Pro-B Natriuret Pep Total Protein Albumin Globulin Urine Color Yellow (Yellow) Urine Appearance Hazy A (CLEAR) Urine pH 5 (5-7) Ur Specific Gravit y 1.010 (1.005-1.030) Urine Protein Neg (Negative) Urine Glucose (UA) 4+ H (Normal) Urine Ketones Negative (Negative) Urine Blood Neg (Negative) Urine Nitrate Negative (Negative) Urine Bilirubin Neg (Negative) Urine Urobilinogen Norm mg/dL mg/dL (Negative) Ur Leukocyte Kimberly ase 1+ H (Negative) Urine RBC None /hpf /hpf (0-2) Urine WBC 5-10 /hpf H /hpf (0-5) Ur Squamous Epith Cells 5-10 /hpf H /hpf (0-5) Amorphous Sediment Not Reportable Urine Bacteria 2+ /hpf H /hpf (NONE) Urine Yeast 2+ /hpf H /hpf Discharge Plan Discharge Patient Disposition: Home Clinical Impression: Diverticulitis Condition: Stable Prescriptions: New hydrocodone-acetaminophen 5-325 mg tablet 1 tab PO Q6H PRN (Reason: pain) Qty: 14 RF: 0 ondansetron 4 mg tablet,disintegrating 4 mg PO Q6H PRN (Reason: nausea and vomiting) Qty: 14 RF: 0 Flagyl 500 mg tablet 500 mg PO Q8H 7 Days Qty: 21 RF: 0 No Action acetaminophen [Tylenol Arthritis Pain] 650 mg tablet extended release 1,300 mg PO Q12H RF: 0 levothyroxine 50 mcg capsule 25 mcg PO DAILY RF: 0 metformin 500 mg tablet 500 mg PO DAILY RF: 0 Jardiance 25 mg tablet 25 mg PO DAILY RF: 0 simvastatin 20 mg tablet 20 mg PO BEDTIME RF: 0 pantoprazole 40 mg tablet,delayed release (DR/EC) 40 mg PO QAM RF: 0 allopurinol 100 mg tablet 100 mg PO QAM RF: 0 amitriptyline 25 mg tablet 25 mg PO BEDTIME RF: 0 nitroglycerin [Nitrostat] 0.4 mg tablet, sublingual 0.4 mg sublingual Q5M PRN (Reason: chest pain) Qty: 25 RF: 4 Lantus Solostar U-100 Insulin 100 unit/mL (3 mL) insulin pen 25 unit SUBCUT DAILY RF: 0 glipizide 5 mg tablet extended release 24hr 5 mg PO QAM RF: 0 albuterol sulfate [ProAir HFA] 90 mcg/actuation Hfa Aerosol Inhaler 2 puff INHALATION Q4H PRN (Reason: Shortness Of Breath) RF: 0 lisinopril 20 mg tablet See Rx Instructions .ROUTE .COMPLEX RF: 0 Medrol (Delio) 4 mg tablets,dose pack See Rx Instructions .ROUTE .COMPLEX Qty: 21 RF: 0 gabapentin 100 mg capsule 100 mg PO TID Qty: 21 RF: 0 hydrocodone-acetaminophen 5-325 mg tablet 1 tab PO TID PRN (Reason: pain) Qty: 14 RF: 0 Discharge Orders: Discharge ED (Routine); Ordered 05/05/21 Ordered By: Beverley Acharya Referrals: Jenniffer Jenkins MD [Primary Care Provider] - 1-3 days Discharge Diet: Advance as tolerated Discharge Activity: Resume usual activity Patient Instructions: Diverticulitis (ED), Opioid Safety Coding Level of Care Code ED Assistant To The Ceo for 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
[2021-05-05 18:08] VITALS: O2SAT 96
[2021-05-05 18:08] LABS: Basophils # 0.1 10^3/uL (0.0-0.1); Basophils % 0.8 %; Eosinophils # 0.4 10^3/uL (0.0-0.8); Eosinophils % 3.6 %; Hematocrit 53.2 % (37.0-47.0); Hemoglobin 16.5 g/dL (11.5-15.3); Lymphocytes # 2.1 10^3/uL (0.8-4.8); Lymphocytes % 20.2 %; Mean Corpuscular Volume 90.3 fl (81-99); Mean Platelet Volume 9.6 fL (7.4-10.4); Monocytes # 0.9 10^3/uL (0.2-0.9); Monocytes % 8.7 %; Neutrophils # 6.94 10^3/uL (1.8-7.7); Neutrophils % 66.4 %; Nucleated Red Blood Cells % 0 %; Platelet Count 294 10^3/cmm (130-400); Red Blood Count 5.89 10^6/uL (4.1-5.3); Red Cell Distribution Width 14.9 % (12.1-15.1); White Blood Count 10.5 10^3/uL (4.0-10.0)
--- NOTE | 2021-05-05 18:17 | CTR_ITS ---
PROCEDURE INFORMATION: Exam: CTA Chest With Contrast Exam date and time: 05/05/2021 6:17 PM Age: 76 years old Clinical indication: Nausea; Shortness of breath; Prior surgery; Surgery type: Tubal, appy, gb; Additional info: Sob/ abd pain TECHNIQUE: Imaging protocol: Computed tomographic angiography of the chest with contrast. 3D rendering (Not supervised by radiologist): MIP and/or 3D reconstructed images were created by the technologist. Radiation optimization: All CT scans at this facility use at least one of these dose optimization techniques: automated exposure control; mA and/or kV adjustment per patient size (includes targeted exams where dose is matched to clinical indication); or iterative reconstruction. Contrast material: VISI 320; Contrast volume: 95 ml; Contrast route: INTRAVENOUS (IV); COMPARISON: CR XR chest 1V portable [id number] 05/05/2021 5:14 PM RADIATION DOSE METRICS: Total DLP (mGy-cm): 1724.35 FINDINGS: Pulmonary arteries: There is no pulmonary embolus. Aorta: Unremarkable. No aortic aneurysm. No aortic dissection. Lungs: There are severe emphysematous changes in the lungs. There is subpleural atelectasis of the dependent portions of the lungs. Very mild interstitial prominence and ground-glass density is noted in the lungs with a mild tree-in-bud pattern compatible with mild pneumonitis versus edema. No dense lobar consolidation. Pleural spaces: Unremarkable. No pneumothorax. No pleural effusion. Heart: Unremarkable. No cardiomegaly. No pericardial effusion. Lymph nodes: Unremarkable. No enlarged lymph nodes. Diaphragm: A small hiatal hernia is present. Bones/joints: Unremarkable. No acute fracture. Soft tissues: Unremarkable. IMPRESSION: 1. There is no pulmonary embolus. 2. Very mild interstitial prominence and ground-glass density is noted in the lungs with a mild tree-in-bud pattern compatible with mild pneumonitis versus edema. Severe emphysematous changes are also noted. PROCEDURE INFORMATION: Exam: CT Abdomen And Pelvis With Contrast Exam date and time: 05/05/2021 6:17 PM Age: 76 years old Clinical indication: Nausea; Shortness of breath; Prior surgery; Surgery type: Tubal, appy, gb; Additional info: Sob/ abd pain TECHNIQUE: Imaging protocol: Computed tomography of the abdomen and pelvis with contrast. Radiation optimization: All CT scans at this facility use at least one of these dose optimization techniques: automated exposure control; mA and/or kV adjustment per patient size (includes targeted exams where dose is matched to clinical indication); or iterative reconstruction. Contrast material: VISI 320; Contrast volume: 95 ml; Contrast route: INTRAVENOUS (IV); COMPARISON: CR XR chest 1V portable [id number] 05/05/2021 5:14 PM RADIATION DOSE METRICS: Total DLP (mGy-cm): 1724.35 FINDINGS: Liver: Unremarkable.No mass. Gallbladder and bile ducts: There has been a cholecystectomy. There is no common bile duct dilation. Pancreas: The pancreas is normal. Spleen: The spleen is normal. Adrenal glands: The adrenal glands are normal. Kidneys and ureters: There is no evidence of hydronephrosis. There is no evidence of renal calcifications. Stomach and bowel: There is a large 3.5 cm duodenal diverticulum containing fluid and air. There is mildly excessive colonic stool content. Extensive diverticulosis is present in the distal colon. There is no evidence of colitis. There is trace induration of the fat adjacent to a diverticulum in the sigmoid colon that may reflect very early/mild diverticulitis. Appendix: There has been an appendectomy. Intraperitoneal space: There is a fem-fem graft in the lower abdomen. Vasculature: The aorta demonstrates mild atherosclerotic calcification. Severe atherosclerotic changes of the distal aorta and common iliac arteries are noted. Lymph nodes: Unremarkable.No enlarged lymph nodes. Urinary bladder: There is mild bladder wall thickening. This may be related to incomplete distention. Reproductive: Uterus and left ovary are unremarkable. There is a 1.6 cm right ovarian cyst. Bones/joints: There are moderate to severe degenerative changes in the spine especially at L5-S1 where there is a degenerative grade 1 spondylolisthesis of L5 on S1. No acute bony abnormality. There is levoscoliosis of the lumbar spine. There is severe stenosis of the spinal canal at L5-S1 due to the degenerative spondylolisthesis, bony endplate and facet hypertrophy. Moderate to severe stenosis is also noted at L3-L4 and L4-L5 due to the marked bony proliferative changes and small disc bulges. Soft tissues: There is a fat-containing umbilical hernia. CT/CT angio chest w abd pel w con IMPRESSION: 1. There is trace induration of the fat adjacent to a diverticulum in the sigmoid colon that may reflect very early/mild diverticulitis. 2. No additional acute abnormality. Multiple incidental findings are noted as above. Radiation Dose CTDIVOL = (mGy): DLP = 1724.35~1724.35 (mGy-cm)
[2021-05-05 18:24] LABS: Lactic Sepsis W/Reflex 1.1 mmol/L (0.5-2.2)
[2021-05-05 18:32] LABS: Alanine Aminotransferase 7 U/L (0-33); Albumin Level 4.2 g/dL (3.5-5.2); Alkaline Phosphatase 94 IU/L (35-105); Anion Gap 18.6 (5-19); Aspartate Amino Transferase 14 U/L (0-32); Blood Urea Nitrogen 15 mg/dL (8-23); Calcium 9.8 mg/dL (8.5-10.5); Carbon Dioxide 23 mmol/L (22-29); Chloride 100 mmol/L (98-107); Globulin 3.9 g/dL (1.3-4.6); Glucose 111 mg/dL (65-115); Osmolality Calculated 286 mOsm/kg (285-295); Potassium 4.6 mmol/L (3.5-5.1); Sodium 137 mmol/L (136-145); Total Bilirubin 0.6 mg/dL (0.15-1.2); Total Protein 8.1 g/dL (6.6-8.7)
[2021-05-05 18:33] VITALS: BP 122/80; PULSE 101; RESP 18; O2SAT 98
[2021-05-05] MEDS: iodixanol 320 mg/mL 100mL Btl IV (19:25)
[2021-05-05 19:34] LABS: Troponin(5th) Baseline 9 ng/L (0-10)
[2021-05-05] MEDS: morphine 4 mg/mL SDV 1 mL IVP (19:48)
--- NOTE | 2021-05-05 20:06 | ECG_ITS ---
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 Measurements Intervals [place] Rate: 75 P: 43 MI: 138 QRS: 59 QRSD: 93 T: 51 QT: 343 QTc: 384 Interpretive Statements SINUS RHYTHM WITH OCCASIONAL SUPRAVENTRICULAR PREMATURE COMPLEXES MARKED ST ELEVATION, CONSIDER INFERIOR INJURY [MARKED ST ELEVATION W/O NORMALLY INFLECTED T-WAVE IN II/aVF] ACUTE AL INTERPRETATION BASED ON A DEFAULT AGE OF 40 YEARS Compared to ECG 05/22/2021 03:51:36 ST (T wave) deviation now present Myocardial infarct finding now present Electronically Signed On 05-22-2021 22:18:20 CDT by Rashaad Jensen M.D. [id number] f
[2021-05-05] MEDS: levoFLOXacin 750 mg Tablet PO (20:41)
[2021-05-05 20:42] LABS: Troponin 5 2HR 9.16 ng/L (0-10); Troponin 5 2HR Delta 0.16 ABS# (0-10)
[2021-05-05] MEDS: HYDROcodone-acetaminophen 5-325 mg Tablet 1 TAB PO (20:49)
[2021-05-05 20:50] LABS: NT Pro B Type Natriuretic Pept 58 pg/mL (0-450)
[2021-05-05 21:02] VITALS: BP 128/85; PULSE 85; RESP 24; O2SAT 93
[2021-05-05 21:13] LABS: Add Urine Microscopic? YES; Bilirubin Urine Neg (Negative); Blood Urine Neg (Negative); Glucose Urine UA 4+ (Normal); Ketones Urine Negative (Negative); Leukocyte Esterase Urine 1+ (Negative); Nitrate Urine Negative (Negative); Protein Urine Neg (Negative); Urine Appearance Hazy (CLEAR); Urine Color Yellow (Yellow); Urobilinogen Urine Norm (Negative); pH Urine 5 (5-7)
[2021-05-05 21:16] LABS: Add Urine Culture? Yes; Bacteria Urine 2+ /hpf
== END 2021-05-05 21:00 | disposition home or self-care (01) ==
PROVIDERS: Physician Assistant; Emergency Provider Emergency Medicine; PCP Internal Medicine
DX: K57.92 Diverticulitis of intestine, part unspecified, without perforation or abscess without bleeding (principal); Z79.84 Long term (current) use of oral hypoglycemic drugs; Z79.4 Long term (current) use of insulin; I25.10 Atherosclerotic heart disease of native coronary artery without angina pectoris; I25.2 Old myocardial infarction; I10 Essential (primary) hypertension; Z87.891 Personal history of nicotine dependence
CPT/HCPCS: 36415; 71045; 71275; 74177; 80053; 81001; 83605; 83880; 84484; 85025; 87077; 87086; 87186; 93005; 96374; 99283; J2270; Q9967

== ENCOUNTER 2021-05-21 20:22 | Inpatient (IN) | payer MEDICARE, SELFPAY ==
--- NOTE | 2021-05-21 20:29 | ECG_ITS ---
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 Measurements Intervals [place] Rate: 68 P: 33 OK: 153 QRS: 37 QRSD: 92 T: 85 QT: 361 QTc: 385 Interpretive Statements SINUS RHYTHM LOW QRS VOLTAGE IN PRECORDIAL LEADS [QRS DEFLECTION < 1.0 mV IN CHEST LEADS] MARKED ST ELEVATION, CONSIDER INFERIOR INJURY [MARKED ST ELEVATION W/O NORMALLY INFLECTED T-WAVE IN II/aVF] ACUTE MT Compared to ECG 05/05/2021 18:03:17 Low QRS voltage now present ST (T wave) deviation now present Sinus tachycardia no longer present Myocardial infarct finding still present Electronically Signed On 05-22-2021 17:10:07 CDT by Rashaad Jensen M.D. [id number] f
[2021-05-21 21:20] VITALS: BP 69/52; PULSE 77; RESP 20; TEMP 36.9; O2SAT 94; BMI 32.0
--- NOTE | 2021-05-21 21:22 | W.ED.CHESTPA ---
HPI - Chest Pain General: Chief Complaint: Chest Pain Stated Complaint: CP, Left arm and jaw Pain Time Seen by Provider: 05/21/21 21:19 Source: patient Mode of arrival: ambulatory Limitations: no limitations History of Present Illness: HPI narrative: 76-year-old female states she been having left-sided chest pain starting at 5 PM is a pressure type pain going into her jaw. She states the pain is sharp in nature rates it an 8 out of 10 she had nausea with the pain she does have history of heart disease. She denies any relieving or worsening factors. Associated symptoms: Deny abdominal pain, dyspnea, fever(s), nausea or vomiting Review of Systems Const: Denies: fever(s), chills, body aches or change in appetite Eyes: Denies: blurry vision or eye discomfort ENMT: Denies: throat pain or dental pain Card: Reports: chest pain Resp: Denies: dyspnea GI: Denies: abdominal pain, nausea, vomiting or diarrhea : Denies: dysuria Musc: Denies: neck pain or back pain Skin/Breast: Denies: rash Neuro: Denies: headache(s) Psych: Denies: depression Alfredo/Lymph: Denies: easy bruising All/Imm: Denies: urticaria PFSH ED PFSH: Medical History Coronary artery disease History of DC (myocardial infarction) HTN (hypertension) PAD (peripheral artery disease) Surgical History H/O section H/O esophagogastroduodenoscopy (12/19/20) Gastric erosions History of cholecystectomy S/P appendectomy S/P breast biopsy S/P femoral-popliteal bypass surgery S/P PTCA (percutaneous transluminal coronary angioplasty) Status post colonoscopy (12/19/20) Extensive diverticulosis Family History Other CAD (coronary artery disease) Cancer Diabetes Hypertension Stroke Social History Smoking and tobacco status: former smoker History of recent travel: No Physical Exam Const: COMMON NORMALS: no acute distress, patient oriented x3 and healthy appearing HENMT: COMMON NORMALS: normocephalic and atraumatic HEAD & SCALP: normocephalic and atraumatic Eye: COMMON NORMALS: Equal, round and reactive pupils present and EOMs intact bilaterally PUPIL: Yes Equal, round and reactive pupils present Neck/C-Spine: COMMON NORMALS: full ROM and supple Chest: COMMONS NORMALS: normal inspection of the chest and normal palpation of entire chest wall Resp: COMMON NORMALS: normal respiratory effort, No retractions, No use of accessory muscles and clear to auscultation bilaterally AUSCULTATION: clear to auscultation bilaterally Cardio: COMMON NORMALS: regular rate, regular rhythm and No murmurs present (Cardio) RATE: regular rate RHYTHM: regular rhythm GI: COMMON NORMALS: Normal to inspection, nondistended, normoactive bowel sounds present, Soft to palpation, non-tender and no masses PALPATION: Yes Soft to palpation Extremity: COMMON NORMALS: normal to inspection and full ROM Neuro: COMMON NORMALS: patient oriented x3, moves all extremities and no focal motor deficits Psych: COMMON NORMALS: mental status grossly normal, Normal thought process present and cooperative THOUGHT PROCESS: Normal thought process present Skin: COMMON NORMALS: no rashes or lesions noted and no wounds GENERAL SKIN EXAM: no rashes or lesions noted Course Vital Signs: Vital signs: Vital Signs Temperature 98.4 F 05/21/21 21:20 Pulse Rate 75 05/21/21 21:45 Respiratory Rate 22 H 05/21/21 21:50 Blood Pressure 120/73 05/21/21 21:50 Pulse Oximetry 99 05/21/21 21:45 MDM - Chest Pain MDM Narrative: Medical decision making narrative: Patient presents here with a STEMI STEMI alert was notified Dr. Leung in the ER seeing patient at patient's hypotensive given some IV fluids her blood pressure is improving patient given Plavix and heparin will take to the Gastroenterology Nurse Lab Data: Labs: Lab Results 05/21/21 05/21/21 05/21/21 21:27 21:27 21:27 WBC 14.5 10^3/uL H 10 ^3/uL (4.0-10.0) RBC 5.90 10^6/uL H 10 ^6/uL (4.1-5.3) Hgb 16.3 g/dL H g/dL (11.5-15.3) Hct 53.3 % H % (37.0-47.0) MCV 90.3 fl fl (81-99) MCH 27.6 pg L pg (28.0-34.0) MCHC 30.6 g/dL g/dL (30.0-36.0) RDW 16.5 % H % (12.1-15.1) Plt Count 345 10^3/cmm 10^3 /cmm (130-400) MPV 10.2 fL fL (7.4-10.4) Neut % (Auto) 66.3 % % Lymph % (Auto) 23.6 % % [place] % (Auto) 6.3 % % Eos % (Auto) 2.7 % % Baso % (Auto) 0.8 % % Neut # (Auto) 9.64 10^3/uL H 10 ^3/uL (1.8-7.7) Lymph # (Auto) 3.4 10^3/uL 10^3/ uL (0.8-4.8) [place] # (Auto) 0.9 10^3/uL 10^3/ uL (0.2-0.9) Eos # (Auto) 0.4 10^3/uL 10^3/ uL (0.0-0.8) Baso # (Auto) 0.1 10^3/uL 10^3/ uL (0.0-0.1) Nucleated RBC % (a uto) 0 % % Nucleated RBCs # 0.0 /100WBC /100W BC Sodium 141 mmol/L mmol/L (136-145) Potassium 4.6 mmol/L mmol/L (3.5-5.1) Chloride 105 mmol/L mmol/L (98-107) Carbon Dioxide 25 mmol/L mmol/L (22-29) Anion Gap 15.6 (5-19) BUN 22 mg/dL mg/dL (8-23) Creatinine 1.5 mg/dL H mg/dL (0.5-0.9) GFR Calculation Not Reportable Glucose 112 mg/dL mg/dL (65-115) Calculated Osmolal ity 296 mOsm/kg H mOs m/kg (285-295) Calcium 9.1 mg/dL mg/dL (8.5-10.5) Total Bilirubin 0.5 mg/dL mg/dL (0.15-1.2) AST 23 U/L U/L (0-32) ALT 16 U/L U/L (0-33) Alkaline Phosphata se 73 IU/L IU/L (35-105) Troponin T Baselin e 17 ng/L H ng/L (0-10) Total Protein 7.5 g/dL g/dL (6.6-8.7) Albumin 3.8 g/dL g/dL (3.5-5.2) Globulin 3.7 g/dL g/dL (1.3-4.6) EKG Data^: EKG 1: Attestation: I personally reviewed and interpreted this EKG as follows: EKG interpretation date: 05/21/21 EKG interpretation time: 21:17 Interpretation: nsr hr [address] elevation ii,iii, avf qrs 92 qtc 378 Critical Care Time Critical Care Time: Critical Care Time: Yes Total Critical Care Time: 35 Attestation: The high probability of a clinically significant, sudden or life threatening deterioration of the patient's [] system(s) required my full and direct attention, intervention and personal management. The critical care time is as shown. 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
[2021-05-21] MEDS: clopidogrel 300 mg Tablet 600 MG PO (21:30)
[2021-05-21] MEDS: aspirin 325 mg Tablet PO (21:30)
[2021-05-21] MEDS: heparin 5,000 unit/mL INJ 1 mL 4000 UNIT IVP (21:30)
[2021-05-21] MEDS: sodium chloride 0.9% 1,000 ML 999 ML IV (21:31)
[2021-05-21 21:32] VITALS: BP 89/61; PULSE 82; RESP 22; O2SAT 96
[2021-05-21 21:40] VITALS: RESP 17
[2021-05-21] MEDS: morphine 4 mg/mL SDV 1 mL IVP (21:40)
[2021-05-21 21:43] VITALS: BP 104/65; PULSE 80; RESP 24; O2SAT 96
--- NOTE | 2021-05-21 21:43 | XACV_ITS ---
Ht: 157 cm Wt: 79 kg BSA: 1.90 m2 Gender: Female : 1945 Any Known Allergies: Other Exam Priority: Routine Procedure(s): Procedure Description: Diagnostic procedure Procedure Description: PCI procedure Procedure Description: Drug Eluting Coronary Stent Procedure Description: PTCA Procedure Description: Miscellaneous Procedure Description: ACT Procedure Description: Coronary Angiography Diagnostic Cath Status: Emergency Diagnostic Findings * Left Main artery has no significant disease. * Patient has dual LAD system with a very large sized diagonal artery. Mild luminal irregularities are seen in the LAD and diagonal arteries. * Circumflex has no significant disease. * Mid Right Coronary Artery: subtotal occlusion, DELROY: 3 flow. * Mid Right Coronary Artery to Distal Right Coronary Artery: subtotal occlusion, DELROY: 2 flow. * Distal Right Coronary Artery: significant 80% stenosis, DELROY: 3 flow. * Coronary angiography shows right dominance. PCI Status: Emergency PCI Indication: STEMI - Immediate PCI for STEMI Interventional Findings * Procedure details * : We engaged RCA with a JR4 guide catheter. IV heparin was administered to maintain an ACT above 250 seconds. A 0.014 run-through guidewire was used to attempt to cross the stenosis however because of lack of support, wire could not cross the stenosis. We switched guide to AL 0.75 guide catheter. Run-through guidewire was able to be crossed across the mid RCA stenosis and put in distal vessel. Balloon angioplasty was performed with 2.5 x 8 mm semicompliant balloon. At this time we noted that AL guide had caused guide dissection of the proximal RCA with poor flow in the vessel. Patient was having chest pain. We placed a 2.75 x 30 mm resolute [place] stent in the proximal RCA. After this we placed a 2.5 x 30 mm resolute [place] drug-eluting stent in the mid RCA. This was followed by post dilation of the stents with 2.75 x 8 mm NC balloon. We noted ostial RCA still had some residual dissection and it was covered with a 2.75 x 18 mm resolute [place] stent. It was also postdilated with the same NC balloon. There was a residual distal RCA stenosis that was stable, we decided to treat it as a staged procedure. At this time final angiogram was performed that showed excellent stent expansion, DELROY-3 flow and no residual stenosis. Guidewire and guide catheter were removed. Patient left the [facility] in a stable condition. * . * Proximal Right Coronary Artery to Mid Right Coronary Artery: 100% stenosis treated with a MDT NC EUPHORA RX [id number] BALLOON, MDT R MONICO 2.75X30 GHISLAINE, and MDT R [place] 2.75X18 GHISLAINE. 0% residual stenosis, DELROY: 3 flow. * Mid Right Coronary Artery to Distal Right Coronary Artery: 99% stenosis treated with a AB TREK 2.50X8 RX BALLOON, MDT R [place] 2.5X30 GHISLAINE, and MDT NC EUPHORA RX [id number] BALLOON. 0% residual stenosis, DELROY: 3 flow. Conclusions 1. Severe thrombotic occlusion of mid RCA 2. status post successful revascularization with 3. GHISLAINE x1. Culprit lesion for STEMI.. 4. Patient had guide edge dissection of the proximal RCA that was treated with GHISLAINE x2. 5. Patient has residual distal RCA stenosis with plans of staged PCI because of high contrast use and patient's stability. Recommendations * Transfer to ICU. * Aspirin Plavix for at least 1 year. * High intensity statin therapy. * Aggressive risk factor modification. * Staged PCI of distal RCA in 2 days. Interventional RX Recommendation: PCI w/o planned CABG Diagnostic RX Recommendation: PCI w/o planned CABG Anticoagulation: Heparin Pressures Phase:Rest AO : 112 / 64 ( 84 ) @ 5:28:47 PM 163 / 75 ( 104 ) @ 5:28:47 PM 102 / 58 ( 76 ) @ 5:28:47 PM 133 / 76 ( 102 ) @ 5:28:47 PM 96 / 63 ( 80 ) @ 5:28:47 PM 109 / 60 ( 83 ) @ 5:28:47 PM Clinical Evaluation EBL: 5mL-10mL Procedural Details Procedure Consent Obtained. Pre-Procedure Time Out. Identified patient by full name and date of as verbalized by the patient/guarantor. Does the consent match the physician's order: N/A Emergent. Accurate & Complete Informed Consent: N/A Emergent. Inpatient/Outpatient History & Physical on Chart: N/A Emergent. If H&P is completed, is and addenduem needed: N/A Emergent; If yes, is the addendum complete: N/A Emergent. Visualize and Verify Site with Patient/Guarantor: N/A. Relevant Radiology Images available: N/A Emergent. Pre-op teaching completed and patient verbalized understanding. The risks, benefits, and alternatives of sedation and/or procedure were discussed by physician. The patient agrees to continue. Procedure started. Physician scrubbed in. Immediate Pre-Procedure Time Out. Correct Patient: N/A Emergent; Correct Procedure: N/A Emergent; Correct Site: N/A Emergent; Correct Patient Position: N/A Emergent; Correct Supplies: N/A Emergent; Dried Flammable Prep: N/A Emergent; Blood Products Available: N/A Emergent;. Correct patient, site and procedure confirmed by cath team. Oxygen started at 4liters/min via nasal canula. bilateral groins was prepped with chloroprep then draped in the usual sterile fashion. Baseline sample Acquired. HR: 104 BPM. PERRLA. 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 Lungs clear x 5 lobes. Lidocaine 1% infiltrated to the right radial. Arterial access obtained. 6 libyan JR 4 guide catheter was inserted over the wire. Inventory is CRD 6FR JR 4 GUIDE 100cm. Runthrough guidewire was advanced through the guide catheter to lesion in the mid RCA. AB TREK 2.50X8 RX BALLOON inserted. Unable to cross lesion. Balloon out. Wire out. Inventory is CRD 6FR AL .75 GUIDE. Inventory is TR Glidewire Angled Stiff Shaft .035 260cm. Glidewire inserted to exchange the Guide catheters. Guide catheter out. 6 libyan AL 0.75 guide catheter was inserted over the wire. Runthrough guidewire was advanced through the guide catheter to lesion in the mid RCA. Inflation number : 1 A AB TREK 2.50X8 RX BALLOON was prepped and advanced across the Mid RCA , then inflated to 12 [place]A for 0:22 seconds. Inflation number: 2 The AB TREK 2.50X8 RX BALLOON was reinflated across the Mid RCA, to 12 [place]A for 0:16 seconds. Balloon out. Inflation Number : 2 A MDT R MONICO 2.75X30 GHISLAINE -Lot Number# [id number] exp date 08/29/2022 was prepped and advanced across the Prox RCA. The stent was deployed at 12 [place]AD[place]A for 0:27 seconds. Stent balloon out over wire. Results checked. Inflation number: 3 The AB TREK 2.50X8 RX BALLOON was reinflated across the Mid RCA, to 12 [place] for 0:13 seconds. Inflation number: 4 The AB TREK 2.50X8 RX BALLOON was reinflated across the Mid RCA, to 12 [place]A for 0:24 seconds. Balloon out. MDT R [place] 2.50x30 GHISLAINE inserted. Unable to cross lesion. Intact stent removed. Guideliner inserted. Inflation Number : 5 A MDT R [place] 2.5X30 GHISLAINE -Lot Number# [id number] exp date 11/21/2023 was prepped and advanced across the Mid RCA. The stent was deployed at 12 [place]A for 0:31 seconds. Stent balloon out over wire. Inflation number : 6 A MDT NC EUPHORA RX 2.04Q46NV BALLOON was prepped and advanced across the Mid RCA , then inflated to 14 ISADORA for 0:18 seconds. Inflation number: 7 The MDT NC EUPHORA RX 2.18G30EF BALLOON was reinflated across the Mid RCA, to 14 ISADORA for 0:14 seconds. Inflation number: 8 The MDT NC EUPH[place]A RX 2.90T64II BALLOON was reinflated across the Mid RCA, to 18 ISADORA for 0:14 seconds. Inflation number: 1 The MDT NC EUPH[place] RX 2.04A99EJ BALLOON was reinflated across the Prox RCA, to 18 ISADORA for 0:16 seconds. Balloon out. Results checked. Inflation Number : 3 A MDT R [place] 2.75X18 GHISLAINE -Lot Number# [id number] exp date 01/28/2024 was prepped and advanced across the Prox RCA. The stent was deployed at 14 ISADORA for 0:31 seconds. Stent balloon out over wire. Inflation number: 4 The MDT NC EUPHORA RX 2.95I19YR BALLOON was reinflated across the Prox RCA, to 14 ISADORA for 0:15 seconds. Inflation number: 5 The MDT NC EUPHORA RX 2.49C13YO BALLOON was reinflated across the Prox RCA, to 16 ISADORA for 0:12 seconds. Inflation number: 6 The MDT NC EUPH[place]A RX 2.95F20TW BALLOON was reinflated across the Prox RCA, to 16 ISADROA for 0:15 seconds. Balloon out. Results checked. Wire out. Guide catheter out. ACT drawn. Results 169 seconds. Therapeutic limits - pre-heparin administration 90-150 seconds and monitoring heparin during a vascular procedure >250 seconds. A 5 libyan TIG catheter in over wire. Multiple views taken of left coronary artery. Catheter redirected to the RCA. Catheter removed over the exchange wire. 6 libyan AL 0.75 guide catheter was inserted over the wire. Runthrough guidewire was advanced through the guide catheter to lesion in the mid RCA. Wire out. Guide catheter out. Physician scrubbed out. A TR Band was successful obtaining hemostatsis at the Right Radial artery insertion site. TR band placed. Hemostasis obtained. Post Procedure: Pulses reassessed and unchanged. PERRLA. 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 No VTE prophylaxis required. Medication's Wasted: Lidocaine 1% = 18 mL. Medication's Wasted: Nitro = 49.5 mg. Total IV fluids: 268 mL. Contrast type used: Omnipaque 300 mgI/mL, 500 mL bottle. Post-op diagnosis: STEMI. PCI Indication: STEMI. Complications: none. Estimated blood loss: 5mL-10mL. Procedure completed. Patient transferred by wheelchair to ICU. Vital chart was stopped. Access Site Site: Right Radial artery Sheath Size: 6 Fr Hemostasis Method: TR Band Hemostasis Success: Successful Procedure Medications Start: 10:05 PM Stop: 10:05 PM Medication: Versed Amount: 1 mg Route: I.V. Start: 10:05 PM Stop: 10:05 PM Medication: Fentanyl Amount: 50 mcg Route: I.V. Start: 10:08 PM Stop: 10:08 PM Medication: Nitrogylcerin Amount: 100 mcg Route: I.A. Start: 10:12 PM Stop: 10:12 PM Medication: Heparin Amount: 5000 units Route: I.V. Start: 10:17 PM Stop: 10:17 PM Medication: Versed Amount: 1 mg Route: I.V. Start: 10:21 PM Stop: 10:21 PM Medication: Heparin Amount: 1000 units Route: I.V. Start: 10:23 PM Stop: 10:23 PM Medication: Fentanyl Amount: 50 mcg Route: I.V. Start: 10:34 PM Stop: 10:34 PM Medication: Versed Amount: 1 mg Route: I.V. Start: 10:39 PM Stop: 10:39 PM Medication: Fentanyl Amount: 25 mcg Route: I.V. Start: 10:45 PM Stop: 10:45 PM Medication: Heparin Amount: 1000 units Route: I.V. Start: 10:49 PM Stop: 10:49 PM Medication: Versed Amount: 1 mg Route: I.V. Start: 10:49 PM Stop: 10:49 PM Medication: Fentanyl Amount: 25 mcg Route: I.V. Start: 10:55 PM Stop: 10:55 PM Medication: Fentanyl Amount: 25 mcg Route: I.V. Start: 10:57 PM Stop: 10:57 PM Medication: Nitrogylcerin Amount: 200 mcg Route: I.C. Start: 11:00 PM Stop: 11:00 PM Medication: Fentanyl Amount: 25 mcg Route: I.V. Start: 11:03 PM Stop: 11:03 PM Medication: Versed Amount: 1 mg Route: I.V. Start: 11:05 PM Stop: 11:05 PM Medication: Heparin Amount: 4000 units Route: I.V. Start: 11:13 PM Stop: 11:13 PM Medication: Aggrastat 12.5 mg/250 mL Amount: 40 ml Route: I.V. bolus Start: 11:17 PM Stop: 11:17 PM Medication: Aggrastat 12.5 mg/250 mL Amount: 14.4 ml/hr Route: I.V. shayna Eller, the attending physician, have reviewed and verified all procedure medications. Yes, all medications given per verbal order History/Risk Factors Hypertension: Yes Dyslipidemia: No Peripheral Arterial Disease (PAD): Yes Myocardial Infarction (NM): Yes Obesity: Yes Renal Disease: No Tobacco Use: Former Prior Interventions PCI: Yes CABG: No Valve Surgery: No Date of PCI: 05/21/2021 Report Signatures Finalized by Rashaad Jensen MD on 06/03/2021 10:08 AM
[2021-05-21 21:45] VITALS: BP 135/69; PULSE 75; RESP 24; O2SAT 99
--- NOTE | 2021-05-21 21:48 | PM.HP ---
Providers/Chief Complaint Admitting Physician: Rashaad Jensen MD/ Cardiology Primary Care Provider: Jenniffer Jenkins MD Chief Complaint: CP, Left arm and jaw Pain History of Present Illness Capri Tobar is a 76 year old female with past medical history of coronary artery disease status post RCA stent in 2017, GI bleed, PAD with occluded bypass grafts has presented with 2 hours of severe chest pain. According to patient she started noticing substernal chest pain that radiated to her jaw and left arm. EKG showed inferior leads ST elevations consistent with a STEMI. [facility] [employer] Checker was activated at 9:19 PM and I was notified at that time. I immediately came to the ER and assessed patient. She was brought to the [facility] and underwent revascularization of tortuous, calcified RCA vessel with GHISLAINE x3. Review of Systems Const: Denies: fever(s), chills, body aches or change in appetite Eyes: Denies: blurry vision or eye discomfort ENMT: Denies: throat pain or dental pain Card: Reports: chest pain Resp: Denies: dyspnea GI: Denies: abdominal pain, nausea, vomiting or diarrhea : Denies: dysuria Musc: Denies: neck pain or back pain Skin/Breast: Denies: rash Neuro: Denies: headache(s) Psych: Denies: depression Alfredo/Lymph: Denies: easy bruising All/Imm: Denies: urticaria Medications/Allergies Home Medications Medication Instructions Recorded Confirmed Last Taken Type allopurinol 100 mg tablet 100 mg PO QAM 09/08/19 01/30/21 12/18/20 History amitriptyline 25 mg tablet 25 mg PO BEDTIME 09/08/19 01/30/21 12/17/20 History pantoprazole 40 mg tablet,delayed 40 mg PO QAM 09/08/19 01/30/21 12/18/20 History release simvastatin 20 mg tablet 20 mg PO BEDTIME 09/08/19 01/30/21 12/17/20 History acetaminophen 650 mg 1,300 mg PO Q12H tab 07/30/20 01/30/21 12/17/20 History tablet,extended release albuterol sulfate [ProAir HFA] 2 puff INHALATION Q4H PRN 10/04/20 01/30/21 12/17/20 History glipizide 5 mg PO QAM 10/04/20 01/30/21 12/18/20 History lisinopril See Rx Instructions .ROUTE .COMPLEX 10/04/20 01/30/21 12/18/20 History empagliflozin 25 mg tablet 25 mg PO DAILY 01/30/21 01/30/21 Unknown History insulin glargine 100 unit/mL (3 25 unit SUBCUT DAILY ml 01/30/21 01/30/21 Unknown History mL) subcutaneous pen levothyroxine 50 mcg capsule 25 mcg PO DAILY cap 01/30/21 01/30/21 Unknown History metformin 500 mg tablet 500 mg PO DAILY 01/30/21 01/30/21 Unknown History gabapentin 100 mg PO TID #21 cap 03/07/21 Unknown Rx methylprednisolone [Medrol (Delio)] See Rx Instructions .ROUTE 03/07/21 Unknown Rx .COMPLEX #21 ea hydrocodone-acetaminophen 1 tab PO TID PRN #14 tab 03/08/21 Unknown Rx nitroglycerin 0.4 mg sublingual 0.4 mg SUBLINGUAL Q5M PRN #25 tab 04/28/21 Unknown Rx tablet hydrocodone-acetaminophen 1 tab PO Q6H PRN #14 tab 05/05/21 Unknown Rx ondansetron 4 mg PO Q6H PRN #14 tab 05/05/21 Unknown Rx Allergies Allergy/AdvReac Type Severity Reaction Status Date / Time codeine Allergy Unknown Unknown Verified 03/07/21 16:46 tetanus and diphtheria Allergy Unknown Verified 03/07/21 16:46 toxoids Tetanus Vaccines and Toxoid Allergy Unknown Verified 03/07/21 16:46 PFSH Acute PFSH: Medical History Coronary artery disease History of [place] (myocardial infarction) HTN (hypertension) PAD (peripheral artery disease) Surgical History H/O section H/O esophagogastroduodenoscopy (12/19/20) Gastric erosions History of cholecystectomy S/P appendectomy S/P breast biopsy S/P femoral-popliteal bypass surgery S/P PTCA (percutaneous transluminal coronary angioplasty) Status post colonoscopy (12/19/20) Extensive diverticulosis Family History Other CAD (coronary artery disease) Cancer Diabetes Hypertension Stroke Social History Smoking and tobacco status: former smoker History of recent travel: No Vitals/I&O/Wt Last Vital Signs Temp 98.4 F 05/21/21 21:20 Pulse 80 05/21/21 21:43 Resp 24 H 05/21/21 21:43 BP 104/65 05/21/21 21:43 Pulse Ox 96 05/21/21 21:43 Weight last 48 hrs Weight 175 lb Physical Exam Narrative: EXAM NARRATIVE: GENERAL: Patient is alert, awake and oriented x3. [] NECK: No jugular vein distension. [] HEENT: No cyanosis. No icterus. No pallor. [] HEART: Regular S1 and S2. No murmur, rub or gallop. [] LUNGS: Clear to auscultate bilaterally. [] ABDOMEN: Soft, nontender and nondistended. Positive bowel sounds. No guarding, rebound or tenderness. [] CENTRAL NERVOUS SYSTEM: Grossly nonfocal. [] EXTREMITIES: Lower extremities with 1+ edema bilaterally. Pulses palpable in the lower extremities, both dorsalis pedis and posterior tibial. [] Data : 05/22/21 03:45 05/22/21 03:45 A&P Assessment and plan (1) ST elevation myocardial infarction (STEMI): Status: Acute Qualifiers: Involved coronary artery: unspecified coronary artery Qualified Code(s): I21.3 - ST elevation (STEMI) myocardial infarction of unspecified site (2) History of [place] (myocardial infarction): Status: Acute (3) Coronary artery disease: Status: Acute Qualifiers: Coronary Disease-Associated Artery/Lesion type: [place] artery [place] vs. transplanted heart: [place] heart Associated angina: without angina Qualified Code(s): I25.10 - Atherosclerotic heart disease of [place] coronary artery without angina pectoris (4) PAD (peripheral artery disease): Status: Acute (5) HTN (hypertension): Status: Acute Qualifiers: Hypertension type: essential hypertension Qualified Code(s): I10 - Essential (primary) hypertension (6) Diabetes: Status: Acute Patient has presented with acute STEMI secondary to occlusion of mid RCA. She underwent successful revascularization with GHISLAINE x3. She had a guide edge dissection that was covered with a stent. Aspirin and Plavix for at least 1 year. High intensity statin therapy. Order echocardiogram. Transfer to ICU. IV fluids for 12 hours. She has residual right distal RCA stenosis that will be revascularized with staged PCI. Attestations Medical Necessity Statement*: Care expected to cross 2 midnights. Patient had STEMI and had revascularization with GHISLAINE x 3 Coding Level of Care Code Acute Supervisor [employer] for [facility] Fwd Diagnoses ST elevation myocardial infarction (STEMI) I21.3 Involved coronary artery: unspecified coronary artery History of [place] (myocardial infarction) I25.2 Coronary artery disease I25.10 Coronary Disease-Associated Artery/Lesion type: [place] artery [place] vs. transplanted heart: [place] heart Associated angina: without angina PAD (peripheral artery disease) I73.9 HTN (hypertension) I10 Hypertension type: essential hypertension Diabetes E11.9
[2021-05-21 21:49] LABS: Basophils # 0.1 10^3/uL (0.0-0.1); Basophils % 0.8 %; Eosinophils # 0.4 10^3/uL (0.0-0.8); Eosinophils % 2.7 %; Hematocrit 53.3 % (37.0-47.0); Hemoglobin 16.3 g/dL (11.5-15.3); Lymphocytes # 3.4 10^3/uL (0.8-4.8); Lymphocytes % 23.6 %; Mean Corpuscular HGB Conc 30.6 g/dL (30.0-36.0); Mean Corpuscular Hemoglobin 27.6 pg (28.0-34.0); Mean Corpuscular Volume 90.3 fl (81-99); Mean Platelet Volume 10.2 fL (7.4-10.4); Monocytes # 0.9 10^3/uL (0.2-0.9); Monocytes % 6.3 %; Neutrophils # 9.64 10^3/uL (1.8-7.7); Neutrophils % 66.3 %; Nucleated Red Blood Cells % 0 %; Platelet Count 345 10^3/cmm (130-400); Red Cell Distribution Width 16.5 % (12.1-15.1); White Blood Count 14.5 10^3/uL (4.0-10.0)
[2021-05-21 21:50] VITALS: BP 120/73; RESP 22
[2021-05-21 21:59] LABS: Troponin(5th) Baseline 17 ng/L (0-10)
[2021-05-21 22:01] LABS: Alanine Aminotransferase 16 U/L (0-33); Albumin Level 3.8 g/dL (3.5-5.2); Alkaline Phosphatase 73 IU/L (35-105); Anion Gap 15.6 (5-19); Aspartate Amino Transferase 23 U/L (0-32); Blood Urea Nitrogen 22 mg/dL (8-23); Calcium 9.1 mg/dL (8.5-10.5); Carbon Dioxide 25 mmol/L (22-29); Chloride 105 mmol/L (98-107); Globulin 3.7 g/dL (1.3-4.6); Glucose 112 mg/dL (65-115); Osmolality Calculated 296 mOsm/kg (285-295); Potassium 4.6 mmol/L (3.5-5.1); Sodium 141 mmol/L (136-145); Total Bilirubin 0.5 mg/dL (0.15-1.2); Total Protein 7.5 g/dL (6.6-8.7)
[2021-05-22] VITALS (24 sets, daily range): BP systolic 93–141; BP diastolic 59–81; PULSE 71–103; RESP 14–34; TEMP 37; O2SAT 93–97
--- NOTE | 2021-05-22 00:03 | PC.NURSE ---
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
--- NOTE | 2021-05-22 02:29 | ECG_ITS ---
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 Measurements Intervals [place] Rate: 77 P: 62 NE: 193 QRS: 37 QRSD: 92 T: 9 QT: 364 QTc: 412 Interpretive Statements SINUS RHYTHM LOW QRS VOLTAGE IN PRECORDIAL LEADS [QRS DEFLECTION < 1.0 mV IN CHEST LEADS] Compared to ECG 05/21/2021 21:16:32 ST (T wave) deviation no longer present Myocardial infarct finding no longer present Electronically Signed On 05-22-2021 17:15:16 CDT by Rashaad Jensen M.D. [id number]
[2021-05-22 04:10] LABS: Basophils % 0.4 %; Eosinophils # 0.1 10^3/uL (0.0-0.8); Hematocrit 48.3 % (37.0-47.0); Hemoglobin 14.5 g/dL (11.5-15.3); Lymphocytes # 2.3 10^3/uL (0.8-4.8); Lymphocytes % 21.1 %; Mean Corpuscular Hemoglobin 28.2 pg (28.0-34.0); Mean Platelet Volume 10.1 fL (7.4-10.4); Monocytes # 0.7 10^3/uL (0.2-0.9); Monocytes % 6.7 %; Neutrophils # 7.67 10^3/uL (1.8-7.7); Neutrophils % 70.5 %; Nucleated Red Blood Cells % 0 %; Platelet Count 269 10^3/cmm (130-400); Red Blood Count 5.14 10^6/uL (4.1-5.3); Red Cell Distribution Width 16.8 % (12.1-15.1); White Blood Count 10.9 10^3/uL (4.0-10.0)
[2021-05-22 05:52] LABS: Blood Urea Nitrogen 20 mg/dL (8-23); Calcium 8.3 mg/dL (8.5-10.5); Carbon Dioxide 17 mmol/L (22-29); Chloride 107 mmol/L (98-107); Glucose 95 mg/dL (65-115); Osmolality Calculated 288 mOsm/kg (285-295); Sodium 138 mmol/L (136-145)
[2021-05-22 05:55] LABS: Anion Gap 18.8 (5-19); Potassium 4.8 mmol/L (3.5-5.1)
--- NOTE | 2021-05-22 06:13 | PC.NURSE ---
TR band had 3ml of air left, small amount bleeding and small hematoma 3ml air placed back in for a total of 6 ml
--- NOTE | 2021-05-22 06:50 | PC.NURSE ---
Bedside report received from Michael BANGURA.
--- NOTE | 2021-05-22 07:00 | PC.NURSE ---
bedside report receive. TR band noted to right wrist. hematoma noted above the TR band after bleeding noted on prior shift. TR band remains in place with 6 mL of air in band. will closely monitor.
--- NOTE | 2021-05-22 07:02 | PC.NURSE ---
Dr. Welch's office notifed of bleeding from Cath site and TR band placed back on
--- NOTE | 2021-05-22 08:10 | PC.NURSE ---
multiple scabs noted to bilateral lower extremities from flea bites per patient. no drainage noted.
--- NOTE | 2021-05-22 08:27 | USCV_ITS ---
Capri Tobar Age: 76 Gender: F : 1945 Exam Date: 05/22/2021 08:44 Ordering Phys: Rashaad Jensen M.D ([email or web address]) Technologist: Exam Location: [facility] [place] Indication: POST CATH BP: 106 / 59 HR: 91 Rhythm: Sinus Technical Quality: Adequate MEASUREMENTS (Male / Female) Normal Values 2D ECHO LVOT Diameter 2.0 cm LA Diameter 3.0 cm LA Width 4.2 cm LA Height 3.7 cm RA Width 4.0 cm RA Height 4.5 cm Aorta at Sinotubular Diameter 2.6 cm DOPPLER AV Peak Velocity 154.0 cm/s LVOT Peak Velocity 105.0 cm/s AV Area Cont Eq vti 2.9 cm squared AV Area Cont Eq pk 2.3 cm squared MV Area PHT 5.0 cm squared Mitral E to A Ratio 0.4 MV E' Velocity 27.0 cm/s Mitral E to MV E' Ratio 7.1 Mitral E to LV E' Lateral Ratio 6.5 Mitral E to LV E' Septal Ratio 7.8 TR Peak Velocity 301.3 cm/s TR Peak Gradient 36.3 mmHg TV Peak E Velocity 80.0 cm/s Right Atrial Pressure 3.0 mmHg Pulmonary Artery Systolic Pressu 39.3 mmHg FINDINGS Left Ventricle Normal left ventricular size. LV systolic function is normal with EF of 50-55%. Mild hypokinesis of the inferolateral wall. Grade 1 diastolic dysfunction Right Ventricle The right ventricle is normal in size and function. Right Atrium The right atrium is normal in size. Left Atrium The left atrium is normal in size. Mitral Valve Grossly normal without significant stenosis or prolapse. There is no mitral regurgitation. Aortic Valve Grossly normal without significant stenosis. There is no aortic regurgitation. Tricuspid Valve Grossly normal without significant stenosis or regurgitation. Insufficient TR jet to calculate RVSP Pulmonic Valve Grossly normal Pericardium Normal pericardium without effusion. Aorta Normal ascending aorta dimension. CONCLUSIONS This is a limited quality echocardiogram because of poor ultrasonic windows. LV systolic function is normal with EF of 50 to 55%. Mild hypokinesis of inferolateral wall is seen. Grade 1 diastolic dysfunction is seen. No significant valvular heart disease is seen. Compared to echocardiogram from 08/01/2020, systolic function is slightly decreased. Rashaad eJnsen MD (Electronically Signed) Final Date: 24 May 2021 20:56 S
[2021-05-22] MEDS: aspirin 81 mg EC Tablet PO (09:42)
[2021-05-22] MEDS: clopidogrel 75 mg Tablet PO (09:42)
[2021-05-22] MEDS: acetaminophen 325 mg Tablet 650 MG PO ×2 (10:48→20:53)
--- NOTE | 2021-05-22 12:08 | P.PN_ITS ---
Subjective Subjective: Interval history: Patient is doing well. No complaints of chest pain, shortness of breath or palpitations. She has a small hematoma at the right radial access site. Vitals/I&O/Wt Last Vital Signs Temp 98.6 F 05/22/21 07:00 Pulse 84 05/22/21 08:45 Resp 18 05/22/21 08:45 BP 106/59 05/22/21 08:45 Pulse Ox 96 05/22/21 08:45 05/21/21 05/22/21 05/22/21 22:59 06:59 14:59 Intake Total 2.667 / 2.667 1000 / 1002.667 240 / 240 Balance 2.667 / 2.667 1000 / 1002.667 240 / 240 Weight last 48 hrs Weight 175 lb Physical Exam Narrative: EXAM NARRATIVE: GENERAL: Patient is alert, awake and oriented x3. [] NECK: No jugular vein distension. [] HEENT: No cyanosis. No icterus. No pallor. [] HEART: Regular S1 and S2. No murmur, rub or gallop. [] LUNGS: Clear to auscultate bilaterally. [] ABDOMEN: Soft, nontender and nondistended. Positive bowel sounds. No guarding, rebound or tenderness. [] CENTRAL NERVOUS SYSTEM: Grossly nonfocal. [] EXTREMITIES: Lower extremities with 1+ edema bilaterally. Pulses palpable in the lower extremities, both dorsalis pedis and posterior tibial. [] Data : 05/22/21 03:45 05/22/21 03:45 A&P Assessment and plan (1) ST elevation myocardial infarction (STEMI): Status: Acute Qualifiers: Involved coronary artery: unspecified coronary artery Qualified Code(s): I21.3 - ST elevation (STEMI) myocardial infarction of unspecified site (2) History of [place] (myocardial infarction): Status: Acute (3) Coronary artery disease: Status: Acute Qualifiers: Coronary Disease-Associated Artery/Lesion type: [place] artery [place] vs. transplanted heart: [place] heart Associated angina: without angina Qualified Code(s): I25.10 - Atherosclerotic heart disease of [place] coronary artery without angina pectoris (4) PAD (peripheral artery disease): Status: Acute (5) HTN (hypertension): Status: Acute Qualifiers: Hypertension type: essential hypertension Qualified Code(s): I10 - Essential (primary) hypertension (6) Diabetes: Status: Acute Patient has presented with acute STEMI secondary to occlusion of mid RCA. She underwent successful revascularization with GHISLAINE x3. She had a guide dissection that was covered with a stent. Watch the right radial hematoma Aspirin and Plavix for at least 1 year. High intensity statin therapy. ECHO pendning Patient has residual stenosis in the distal RCA that will need staged revascularization. Attestations Medical Necessity Statement*: Care expected to cross 2 midnights. Coding Level of Care Code Acute Brewery Representative for Param Carpio Diagnoses ST elevation myocardial infarction (STEMI) I21.3 Involved coronary artery: unspecified coronary artery History of [place] (myocardial infarction) I25.2 Coronary artery disease I25.10 Coronary Disease-Associated Artery/Lesion type: [place] artery [place] vs. transplanted heart: [place] heart Associated angina: without angina PAD (peripheral artery disease) I73.9 HTN (hypertension) I10 Hypertension type: essential hypertension Diabetes E11.9
[2021-05-22] MEDS: gabapentin 100 mg Capsule PO ×2 (16:14→20:49)
[2021-05-22 16:22] LABS: Glucose Point of Care 92 mg/dL (70-110)
[2021-05-22 20:49] LABS: Glucose Point of Care 100 mg/dL (70-110)
[2021-05-22] MEDS: atorvastatin 40 mg Tablet 80 MG PO (20:50)
[2021-05-22] MEDS: temazepam 15 mg Capsule PO (20:53)
--- NOTE | 2021-05-22 21:01 | ECG_ITS ---
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1945 Requested By: Rashaad Jensen Order Number: [id number] Reading MD: ANGELIC GLEZ Measurements Intervals [place] Rate: 75 P: 43 [place]: 138 QRS: 59 QRSD: 93 T: 51 QT: 343 QTc: 384 Interpretive Statements SINUS RHYTHM WITH OCCASIONAL SUPRAVENTRICULAR PREMATURE COMPLEXES MARKED ST ELEVATION, CONSIDER INFERIOR INJURY [MARKED ST ELEVATION W/O NORMALLY INFLECTED T-WAVE IN II/aVF] ACUTE UT INTERPRETATION BASED ON A DEFAULT AGE OF 40 YEARS Compared to ECG 05/22/2021 03:51:36 ST (T wave) deviation now present Myocardial infarct finding now present Electronically Signed On 05-24-2021 0:01:37 CDT by ANGELIC GLEZ [id number]
[2021-05-22] MEDS: nitroglycerin 0.4 mg sublingual Tablet SUBLINGUAL ×2 (21:02→21:09)
[2021-05-22] MEDS: morphine 4 mg/mL SDV 1 mL IVP (21:08)
--- NOTE | 2021-05-22 21:10 | PC.NURSE ---
2100 patient c/o of chest pain radiating to jaw, rated pain 10/10, new st elevation noted on monitor, EKG showed marked st elvation consider inferior CO, Dr. Hastings notified advised this nurse to call cardiology, DR. Jimenez special education paraeducator picture of EKG sent to Dr. jimenez and advised this nurse to call STEMI alert
--- NOTE | 2021-05-22 21:22 | PC.NURSE ---
reviewing rhythm, ST elevation started approximately 2049
--- NOTE | 2021-05-22 21:31 | PC.NURSE ---
Dr. Carvajal gave v.o. for rose odonnell
--- NOTE | 2021-05-22 21:33 | PM.PN ---
Subjective Subjective: Interval history: Called on by our ICU staff regarding Ms. Tobar who started having chest pain all of a sudden, twelve-lead EKG revealed ST elevation in the inferior hur[place]. Patient underwent PCI last night for inferior wall ST elevation [place]. Medications: Reviewed: Yes Vitals/I&O/Wt Last Vital Signs Temp 98.6 F 05/22/21 07:00 Pulse 82 05/22/21 16:00 Resp 20 H 05/22/21 21:08 BP 118/63 05/22/21 16:00 Pulse Ox 94 05/22/21 16:00 05/22/21 05/22/21 05/22/21 06:59 14:59 22:59 Intake Total 1000 / 1002.667 600 / 600 240 / 840 Output Total 550 / 550 Balance 1000 / 1002.667 600 / 600 -310 / 290 Weight last 48 hrs Weight 175 lb Physical Exam Narrative: EXAM NARRATIVE: GENERAL: Patient is alert, awake and oriented x3. Patient is moderate distress NECK: No jugular vein distension. HEENT: No cyanosis. No icterus. No pallor. HEART: Regular S1 and S2. No murmur, rub or gallop. LUNGS: Clear to auscultate bilaterally. ABDOMEN: Soft, nontender and nondistended. Positive bowel sounds. No guarding, rebound or tenderness. CENTRAL NERVOUS SYSTEM: Grossly nonfocal. EXTREMITIES: Lower extremities withot edema bilaterally. Right wrist has a TR band still from last night due to oozing of blood Data : 05/22/21 03:45 05/22/21 03:45 A&P Assessment and plan (1) ST elevation myocardial infarction (STEMI): Status: Acute Qualifiers: Involved coronary artery: unspecified coronary artery Qualified Code(s): I21.3 - ST elevation (STEMI) myocardial infarction of unspecified site (2) History of [place] (myocardial infarction): Status: Acute (3) Coronary artery disease: Status: Acute Qualifiers: Coronary Disease-Associated Artery/Lesion type: [place] artery [place] vs. transplanted heart: [place] heart Associated angina: without angina Qualified Code(s): I25.10 - Atherosclerotic heart disease of [place] coronary artery without angina pectoris (4) PAD (peripheral artery disease): Status: Acute (5) HTN (hypertension): Status: Acute Qualifiers: Hypertension type: essential hypertension Qualified Code(s): I10 - Essential (primary) hypertension (6) Diabetes: Status: Acute Patient has ST elevation [place] in the inferior leads, she underwent PCI last night for right side acute occlusion. She was noted to have guide induced dissection which is sealed with stents. She did fine post PCI for 12 hours and started having chest pain again. Repeat EKG was suggestive of ST elevation which is changed from the baseline EKG post PCI in the inferior lead. It is possible patient has occluded her stents which could be multifactorial including malabsorption of the tube with reintubated. We will therefore take patient to the Mechanical Car Checker per the plan will be devised as per progress of the patient. I have explained all risk benefit and alternative for the procedure. Patient understand risk for stroke arrhythmia contrast-induced nephropathy urgent emergent bypass surgery vascular injury. She would like to proceed.. Attestations Medical Necessity Statement*: Patient require continuation hospitalization for above defined problem. Coding Level of Care Code Acute Humid System Operator for Param Carpio Diagnoses ST elevation myocardial infarction (STEMI) I21.3 Involved coronary artery: unspecified coronary artery History of [place] (myocardial infarction) I25.2 Coronary artery disease I25.10 Coronary Disease-Associated Artery/Lesion type: [place] artery [place] vs. transplanted heart: [place] heart Associated angina: without angina PAD (peripheral artery disease) I73.9 HTN (hypertension) I10 Hypertension type: essential hypertension Diabetes E11.9
--- NOTE | 2021-05-22 21:41 | XACV_ITS ---
Exam Room: [facility] Ht: 157 cm Wt: 79 kg BSA: 1.90 m2 Gender: Female : 1945 Any Known Allergies: Other Exam Priority: Routine Indication(s): - Acute coronary syndrome Procedure(s): Procedure Description: PCI procedure Procedure Description: Drug Eluting Coronary Stent Procedure Description: PTCA Wei [place]; Diagnostic Cath Status: Emergency PCI Status: Emergency PCI Indication: Immediate PCI for STEMI Conclusions 1. Reason for angiogram and PCI: ST elevation MII was called by ICU nurse that patient started having chest pain she is status post PCI for ST elevation MD 24 hours ago when she was noted to have occluded RCA it was treated with balloon angioplasty and drug-eluting stent. Patient has difficult anatomy and very calcified vessels. Proximal to mid segment received stents, distal vessel had 80% stenosis due to high contrast it was thought to be staged. Patient did fine for next 24 hours but for the last few minutes she started having chest pain twelve-lead EKG suggestive of ST elevation MD. We alerted STEMI pager. Patient was taken to the Electronic Test Technician. She was noted to have acutely occluded RCA with in-stent thrombosis. After somewhat struggle I was able to engage RCA and cross the lesion. Multiple balloon angioplasties using compliant and noncompliant balloons was performed. Flow was restored in the RCA. It was also noted patient has distal 90% stenosis which is late for staged PCI. It was treated with balloon angioplasty followed by drug-eluting stent. Good angiographic result was achieved. We did not engage the left side system since culprit vessel was RCA as per EKG and because of the fact patient had contrast in the last 24 hours.. Recommendations * 1-Return to inpatient for close monitoring and routine cath care 2-Risk factor modification for secondary prevention 3-Statin and aspirin 81 mg life--long, if tolerated 4-Continue Plavix 75mg p.o. daily for at least one year. We will assess at the end of one year again to continue if further or not 5-Continue optimal medical management 6-Follow up with Dr. Carvajal in four weeks and your primary care in 10 days. Diagnostic RX Recommendation: PCI w/o planned CABG Pressures Phase:Rest AO : 126 / 71 ( 94 ) @ 11:58:35 PM 111 / 51 ( 78 ) @ 11:58:35 PM 121 / 64 ( 89 ) @ 11:58:35 PM Clinical Evaluation EBL: 5mL-10mL Procedural Details Procedure started. Identified patient by full name and date of as verbalized by the patient/guarantor. Pre-Procedure Time Out. Does the consent match the physician's order: N/A Emergent; Informed Consent not obtained due to time critical life threat. Accurate & Complete Informed Consent: N/A Emergent; Informed Consent not obtained due to time critical life threat. Inpatient/Outpatient History & Physical on Chart: N/A Emergent; Informed Consent not obtained due to time critical life threat. Visualize and Verify Site with Patient/Guarantor: N/A. Relevant Radiology Images available: N/A Emergent; Informed Consent not obtained due to time critical life threat. [facility] Clinical Fraility Score: 5: Mildly Frail. Electronic Test Technician Indications: ACS <= 24 hours/Sun-acute Mid RCA in-stent thrombosis. Chest Pain Symptom Assessment: Typical Angina Symptoms. Cardiovascular Instability: Yes, if yes, Persistant Ischemic Symptoms. Correct patient, site and procedure confirmed by cath team. Current diagnosis: STEMI. PERRLA. 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 Lungs clear x 5 lobes. IV Site on Arrival: 20 gauge in the left anticubital. IV Fluids: 0.9% NaCl at KVO. 0 mL infused prior to systems testing laboratory technician. Oxygen started at 2liters/min via nasal canula. bilateral groins was prepped with chloroprep then draped in the usual sterile fashion. Physician notified. Baseline sample Acquired. HR: 102 BPM. Equipment: 6F - Femoral. Cardiac Cath Pack. ACIST Manifold Kit Model BT 2000. Heparinized Saline (2 units/mL), 1000 mL bag. Kit, Micropuncture. Physician arrived. Physician scrubbed in. Immediate Pre-Procedure Time Out. Lidocaine 1% infiltrated to the right groin. Ara Diallo RN circulating. Arterial access obtained with micropuncture set. PCI Indication: STEMI. 6 spanish AL 0.75 guide catheter was inserted over the wire. ACT drawn. Results 116 seconds. Therapeutic limits - pre-heparin administration 90-150 seconds and monitoring heparin during a vascular procedure >250 seconds. Runthrough guidewire was advanced through the guide catheter to lesion in the mid RCA. Inflation number : 1 A AB TREK 2.50X30 RX BALLOON was prepped and advanced across the Mid RCA , then inflated to 16 [place] for 0:28 seconds. Inflation number: 2 The AB TREK 2.50X30 RX BALLOON was reinflated across the Mid RCA, to 16 ISADORA for 0:21 seconds. Guideliner in. Inflation number : 3 A MDT NC EUPHORA RX 3.80H84DJ BALLOON was prepped and advanced across the Mid RCA , then inflated to 0 [place] for 0:16 seconds. Inflation number: 1 The MDT NC [place] RX 3.99U28IS BALLOON was reinflated across the Prox RCA, to 16 [place] for 0:13 seconds. Inflation number: 2 The MDT NC [place] RX 3.83G56KQ BALLOON was reinflated across the Prox RCA, to 18 ISAD[place]A for 0:15 seconds. Balloon out. Inflation number : 4 A MDT NC [place] RX 3.93W95KF BALLOON was prepped and advanced across the Mid RCA , then inflated to 18 [place]A for 0:15 seconds. Inflation number: 5 The MDT NC EUPH[place] RX 3.58E77MC BALLOON was reinflated across the Mid RCA, to 20 [place]A for 0:12 seconds. Inflation number: 6 The MDT NC EUPH[place]A RX 3.06F35PE BALLOON was reinflated across the Mid RCA, to 20 ISAD[place]A for 0:13 seconds. Results checked. Balloon out. Current Diagnosis : STEMI. Resolute [place] 2.75 x 22 inserted, but removed fractured, but intact. Inflation Number : 1 A MDT R [place] 2.75X15 GHISLAINE -Lot Number# [id number] was prepped and advanced across the Dist RCA. The stent was deployed at 18 ISADORA for 0:12 seconds. Exp 12/04/23. Inflation number: 2 The stent balloon was then re-inflated across the Dist RCA to 22 ISADORA for 0:08 seconds. ACT drawn. Results 165 seconds. Therapeutic limits - pre-heparin administration 90-150 seconds and monitoring heparin during a vascular procedure >250 seconds. Stent balloon out. Results checked. PCI Indication : Immediate PCI for STEMI. Guideliner out. Wire out. Guide cath out. Physician scrubbed out. Sheath(s) sutured into position with 2-0 silk and sterile 4x4's and Op-site applied over the site. No oozing or signs and symptoms of hematoma noted. Arterial sheath flushed and connected to tranducer and pressure bag with heparinized saline. PERRLA. 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 No VTE prophylaxis required. Post-op diagnosis: Post dilation of mid RCA stent for possible stent mal aposition/staged Distal RCA PCI. Complications: none. Estimated blood loss: 5mL-10mL. A Suture was successful obtaining hemostatsis at the Right Femoral artery insertion site. Total IV fluids: 75 mL. Medication's Wasted: Lidocaine 1% = 10 mL. Procedure completed. Patient transferred by bed to ICU. Vital chart was stopped. Access Site Site: Right Femoral artery Sheath Size: 6 Fr Hemostasis Method: Suture Hemostasis Success: Successful Procedure Medications Start: 9:58 PM Stop: 9:58 PM Medication: Versed Amount: 1 mg Route: I.V. Start: 9:58 PM Stop: 9:58 PM Medication: Fentanyl Amount: 25 mcg Route: I.V. Start: 10:06 PM Stop: 10:06 PM Medication: Heparin Amount: 7000 units Route: I.V. Start: 10:26 PM Stop: 10:26 PM Medication: Versed Amount: 1 mg Route: I.V. Start: 10:36 PM Stop: 10:36 PM Medication: Heparin Amount: 4000 units Route: I.V. I, the attending physician, have reviewed and verified all procedure medications. Yes, all medications given per verbal order History/Risk Factors Hypertension: Yes Dyslipidemia: No Peripheral Arterial Disease (PAD): Yes Myocardial Infarction (MD): Yes Obesity: Yes Renal Disease: No Tobacco Use: Former Prior Interventions PCI: Yes CABG: No Valve Surgery: No Date of PCI: 05/21/2021 Report Signatures Finalized by Clay Carvajal MD on 06/03/2021 08:16 PM
[2021-05-22] MEDS: ondansetron 2 mg/ML SDV 2 mL 4 MG IVP (21:46)
--- NOTE | 2021-05-22 23:50 | PC.NURSE ---
patient back from mechanical laboratory technician 2300, Dr Carvajal at bedside, gave v.o. to draw ptt 2 hours later, pull sheath once ptt less than 45
[2021-05-23] VITALS (46 sets, daily range): BP systolic 92–140; BP diastolic 56–93; PULSE 77–109; RESP 12–28; TEMP 36.6; O2SAT 89–99
[2021-05-23 01:47] LABS: Partial Thromboplastin Time > 250.0 SECONDS (23.9-36.7)
--- NOTE | 2021-05-23 01:49 | PC.NURSE ---
LAB reported PTT > 250, unable to pull sheath at this time per v.o. from Dr. Carvajal
[2021-05-23 04:59] LABS: Basophils # 0.1 10^3/uL (0.0-0.1); Basophils % 0.5 %; Eosinophils # 0.1 10^3/uL (0.0-0.8); Eosinophils % 0.9 %; Hematocrit 47.5 % (37.0-47.0); Hemoglobin 14.5 g/dL (11.5-15.3); Lymphocytes # 2.4 10^3/uL (0.8-4.8); Lymphocytes % 21.2 %; Mean Corpuscular HGB Conc 30.5 g/dL (30.0-36.0); Mean Corpuscular Hemoglobin 28.2 pg (28.0-34.0); Mean Corpuscular Volume 92.4 fl (81-99); Mean Platelet Volume 10.1 fL (7.4-10.4); Monocytes # 0.7 10^3/uL (0.2-0.9); Monocytes % 6.1 %; Neutrophils # 8.08 10^3/uL (1.8-7.7); Neutrophils % 70.9 %; Nucleated Red Blood Cells % 0 %; Platelet Count 243 10^3/cmm (130-400); Red Blood Count 5.14 10^6/uL (4.1-5.3); Red Cell Distribution Width 16.5 % (12.1-15.1); White Blood Count 11.4 10^3/uL (4.0-10.0)
[2021-05-23 05:08] LABS: Partial Thromboplastin Time 50.5 SECONDS (23.9-36.7)
[2021-05-23 05:17] LABS: Anion Gap 16.1 (5-19); Blood Urea Nitrogen 22 mg/dL (8-23); Calcium 8.4 mg/dL (8.5-10.5); Carbon Dioxide 22 mmol/L (22-29); Chloride 105 mmol/L (98-107); Creatinine Clr Calc Pharmacy 57.4655; Glucose 105 mg/dL (65-115); Osmolality Calculated 290 mOsm/kg (285-295); Potassium 5.1 mmol/L (3.5-5.1); Sodium 138 mmol/L (136-145)
[2021-05-23 07:53] LABS: Glucose Point of Care 84 mg/dL (70-110)
[2021-05-23] MEDS: gabapentin 100 mg Capsule PO ×2 (08:16→14:45)
[2021-05-23] MEDS: acetaminophen 325 mg Tablet 650 MG PO ×2 (08:16→14:48)
[2021-05-23] MEDS: clopidogrel 75 mg Tablet PO (08:17)
--- NOTE | 2021-05-23 08:27 | PC.NURSE ---
0700 Report received, assessment completed. Pt AAOX4, lying supine. Verbalizes understanding of need for immobility. R femoral site c/d/i. No issues noted. R radial site has TR band in place with no air in. No s/s of bleeding noted. L wrist PIV with NS infusing at 100ml/h per orders. Pt c/o general pain 01/25. Pt repositioned as possible. Will continue to monitor.
[2021-05-23 09:31] LABS: Partial Thromboplastin Time 32.6 SECONDS (23.9-36.7)
[2021-05-23] MEDS: sodium chloride 0.9% 1,000 ML 100 ML IV ×2 (09:40→16:37)
--- NOTE | 2021-05-23 09:49 | PC.NURSE ---
Reported to pt that her PTT was WNL and that this nurse was going to pull her sheath. Pt refuses to let this nurse pull sheath until she speaks with the doctor. MD notified. Pt education provided r/t nurses ability to competently pull sheath, pt continues to refuse.
--- NOTE | 2021-05-23 10:02 | PC.CHAP ---
Pastoral Care Encounter/Spiritual Assessment Type of Contact [] Declined strip deburrer visit [] Patient/Family/Request visit [] Outpatient visit [] Follow-up visit [] Physician referral [] Code/Alert [x] Routine visit [] Staff referral [] Actively dying [] Patient sleeping [] Family support [] [] Out of room [] Palliative care [] [x] Receiving care in room [] Pre-surgical visit [] Trauma [] Long length of stay [x] ICU visit [] Other: Relational/Emotional Strength [] Patient feels connected with others/family/visitors/staff [] Distress [] Loneliness/isolation [] Abandonment Spirituality of Patient [] Person of Blanca [] Attends Restorationism of their Blanca [] Believes in Prayer [] Reads Bible or Anabaptist materials [] There are Spiritual issues to be addressed Production Dispatcher Interventions [x] Prayer [] Active listening [] Non-anxious presence [] Spiritual/emotional support [] Crisis/trauma care [] Spiritual counseling [] Bereavement support [] Provided bereavement packet [] Provided Bible/devotional materials [] Provided toy/stuffed animal, coloring book to patient or family member [] Provided Communion [] Anointing/[place] [] Salvation [x] Completed spiritual assessment [] Other: Impact on Illness or Injury [] Angry [] Fearful [] Anxious [] Often cries [] Exhaustion [] Unable to work [] Unable to attend gnosticism [] Unable to walk/stand [] Unable to read [] Unable to drive [] Unable to eat/drink [] Unable to sleep [] Unable to be with family [] Patient intubated [] Other: Summary Time spent with patient
--- NOTE | 2021-05-23 11:05 | PC.NURSE ---
Sheath pulled at 1035. Manual pressure applied for 15 minutes. Checked site, no s/s of bleeding noted. Site dressed with gauze and tegaderm. Pulses palpable to bilateral pedals. Will continue to monitor per orders.
--- NOTE | 2021-05-23 11:24 | PC.PHAR ---
PT STATES SHE TAKES CARE OF HER OWN MEDICATIONS-PT STATES SHE WAS TAKING PLAVIX PT STATES SHE WAS NEEDING REFILLS-LALITA LAST FILLED ON 03/08/21 30D/S
[2021-05-23 11:26] LABS: Glucose Point of Care 94 mg/dL (70-110)
--- NOTE | 2021-05-23 13:12 | PC.NURSE ---
Pt gave verbal permission to speak with son, Yeyo, and Mariely, daughter.
[2021-05-23 16:17] LABS: Glucose Point of Care 101 mg/dL (70-110)
--- NOTE | 2021-05-23 16:18 | ECG_ITS ---
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1945 Requested By: Rashaad Jensen Order Number: [id number] Reading MD: ANGELIC GLEZ Measurements Intervals [place] Rate: 89 P: 63 CO: 180 QRS: 80 QRSD: 93 T: 91 QT: 365 QTc: 445 Interpretive Statements SINUS RHYTHM LOW QRS VOLTAGE IN PRECORDIAL LEADS [QRS DEFLECTION < 1.0 mV IN CHEST LEADS] ST ELEVATION, CONSIDER ANTERIOR INJURY [MARKED ST ELEVATION W/O NORMALLY INFLECTED T-WAVE IN V2-V5] MARKED ST ELEVATION, CONSIDER INFERIOR INJURY [MARKED ST ELEVATION W/O NORMALLY INFLECTED T-WAVE IN II/aVF] ACUTE CO Compared to ECG 05/22/2021 20:58:03 Low QRS voltage now present ST (T wave) deviation still present Myocardial infarct finding still present Electronically Signed On 05-24-2021 0:02:36 CDT by ANGELIC GLEZ [id number]
[2021-05-23] MEDS: nitroglycerin 0.4 mg sublingual Tablet SUBLINGUAL ×3 (16:20→17:04)
--- NOTE | 2021-05-23 16:20 | PM.PN ---
Subjective Subjective: Interval history: This evening patient again developed chest pain radiating to the jaw. EKG again showed ST elevations in inferior leads. She was emergently taken to the Publicity Manager and found to have occluded RCA stents. She underwent successful revascularization with balloon angioplasty. She is chest pain-free at this time. Vitals/I&O/Wt Last Vital Signs Temp 97.8 F 05/23/21 12:00 Pulse 98 05/23/21 14:00 Resp 20 H 05/23/21 13:00 BP 102/69 05/23/21 13:00 Pulse Ox 94 05/23/21 13:00 05/23/21 05/23/21 05/23/21 06:59 14:59 22:59 Intake Total 720 / 720 Balance 720 / 720 Weight last 48 hrs Weight 175 lb Physical Exam Narrative: EXAM NARRATIVE: GENERAL: Patient is alert, awake and oriented x3. [] NECK: No jugular vein distension. [] HEENT: No cyanosis. No icterus. No pallor. [] HEART: Regular S1 and S2. No murmur, rub or gallop. [] LUNGS: Clear to auscultate bilaterally. [] ABDOMEN: Soft, nontender and nondistended. Positive bowel sounds. No guarding, rebound or tenderness. [] CENTRAL NERVOUS SYSTEM: Grossly nonfocal. [] EXTREMITIES: Lower extremities with 1+ edema bilaterally. Pulses palpable in the lower extremities, both dorsalis pedis and posterior tibial. [] Data : 05/24/21 03:39 05/24/21 03:39 A&P Assessment and plan (1) ST elevation myocardial infarction (STEMI): Status: Acute Qualifiers: Involved coronary artery: unspecified coronary artery Qualified Code(s): I21.3 - ST elevation (STEMI) myocardial infarction of unspecified site (2) History of DC (myocardial infarction): Status: Acute (3) Coronary artery disease: Status: Acute Qualifiers: Coronary Disease-Associated Artery/Lesion type: [place] artery [place] vs. transplanted heart: [place] heart Associated angina: without angina Qualified Code(s): I25.10 - Atherosclerotic heart disease of [place] coronary artery without angina pectoris (4) PAD (peripheral artery disease): Status: Acute (5) HTN (hypertension): Status: Acute Qualifiers: Hypertension type: essential hypertension Qualified Code(s): I10 - Essential (primary) hypertension (6) Diabetes: Status: Acute Patient presented with acute STEMI secondary to occlusion of mid RCA. She underwent successful revascularization with GHISLAINE x3. Yesterday patient had stent thrombosis and and Dr. Carvajal performed balloon angioplasty with revascularization of RCA. He also performed PCI of distal RCA stenosis with a GHISLAINE x1. Today again she developed significant chest pain and ST elevations. We performed coronary angiogram that showed occluded RCA stents. She underwent successful revascularization with balloon angioplasty. Given her multiple stent thrombosis episodes, we performed IVUS which showed well-expanded stents. 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 We have switched her Plavix to Brilinta. Aspirin and Brilinta High intensity statin therapy. Continue ICU stay for now. Attestations Medical Necessity Statement*: Care expected to cross [address] Patient had acute ST elevation DC 2 days ago. She has recurrent stent thrombosis that occurred yesterday and again today successfully revascularized with balloon angioplasty. She will need continued ICU care for now. Coding Level of Care Code Acute Correspondence Transcriber for Param Carpio Diagnoses ST elevation myocardial infarction (STEMI) I21.3 Involved coronary artery: unspecified coronary artery History of DC (myocardial infarction) I25.2 Coronary artery disease I25.10 Coronary Disease-Associated Artery/Lesion type: [place] artery [place] vs. transplanted heart: [place] heart Associated angina: without angina PAD (peripheral artery disease) I73.9 HTN (hypertension) I10 Hypertension type: essential hypertension Diabetes E11.9
[2021-05-23] MEDS: ondansetron 2 mg/ML SDV 2 mL 4 MG IVP (16:25)
[2021-05-23] MEDS: sodium chloride 0.9% 250 ML IV (16:40)
--- NOTE | 2021-05-23 16:42 | PC.NURSE ---
1615 Pt c/o CP, ST changes noted on monitor. EKG ordered and performed. Pt given nitro at 1620/1625 with zofran 4mg IVP at 1625. Cardiologists notified and at bedside by 1620. laboratory apparatus glass blower called in at 1631. Pt sons in waiting room. spoke with them. Will monitor.
--- NOTE | 2021-05-23 16:44 | XACV_ITS ---
Exam Room: [facility] Ht: 157 cm Wt: 79 kg BSA: 1.90 m2 Gender: Female : 1945 Any Known Allergies: Other Exam Priority: Routine Procedure(s): Procedure Description: Diagnostic procedure Procedure Description: PCI procedure Procedure Description: Left Heart Catheterization Procedure Description: Coronary IVUS Procedure Description: PTCA Diagnostic Cath Status: Emergency Diagnostic Findings * Proximal Right Coronary Artery: total thrombotic occlusion, DELROY: 0 flow. * Mid Right Coronary Artery: total thrombotic occlusion, DELROY: 0 flow. * Indication: Patient had presented with ST elevation PA with occlusion of RCA 2 days before. She underwent successful revascularization with a GHISLAINE x3. The following day she developed stent thrombosis and was revascularized with balloon angioplasty and placement of additional stent in the distal vessel. Today again patient developed ST elevations in inferior leads associated with severe chest pain. * Left system not injected. * Coronary angiography shows right dominance. PCI Status: Emergency PCI Indication: STEMI - Immediate PCI for STEMI Interventional Findings * Procedure details: We engaged RCA with a JR5 guide catheter. IV heparin was administered to maintain an ACT above 250 seconds. A 0.014 run-through guidewire was used to cross the stenosis and was placed in distal vessel. We dilated the stents with a 3.0 x 12 mm semicompliant balloon all the way from proximal to the mid to distal vessel. We then proceeded with IVUS that showed excellent expansion of stents. At this time final angiogram was performed that showed excellent stent expansion, DELROY-3 flow and no residual stenosis. Guidewire and guide catheter were removed. Patient left the [facility] in a stable condition. * Proximal Right Coronary Artery: 100% stenosis treated with a AB TREK 3.00X12 RX BALLOON. 0% residual stenosis, DELROY: 3 flow. * Mid Right Coronary Artery: 100% stenosis treated with a AB TREK 3.00X12 RX BALLOON. 0% residual stenosis, DELROY: 3 flow. Conclusions 1. Stent thrombosis 2. of 3. proximal to mid vessel stents. 4. S/p 5. successful revascularization with balloon angioplasty.. 6. IVUS demonstrated excellent expansion of stents. 7. Likely mechanism for recurrent stent thrombosis is Plavix resistance. We will switch patient to Brilinta. Recommendations * Brilinta loaded in the [facility]. We will continue with aspirin and Brilinta for at least 1 year. * High intensity statin therapy. * Transfer back to ICU. Telemetry monitoring. * Outpatient cardiology follow-up in 10 days. Interventional RX Recommendation: PCI w/o planned CABG Diagnostic RX Recommendation: PCI w/o planned CABG Anticoagulation: Heparin Pressures Phase:Rest AO : 100 / 62 ( 63 ) @ 3:59:00 PM 101 / 40 ( 68 ) @ 4:00:00 PM 101 / 57 ( 77 ) @ 4:09:00 PM Clinical Evaluation EBL: 5mL-10mL Procedural Details Procedure Consent Obtained. Pre-Procedure Time Out. Identified patient by full name and date of as verbalized by the patient/guarantor. Does the consent match the physician's order: Yes. Accurate & Complete Informed Consent: Yes. Inpatient/Outpatient History & Physical on Chart: Yes. If H&P is completed, is and addenduem needed: N/A; If yes, is the addendum complete: N/A. Visualize and Verify Site with Patient/Guarantor: N/A. Relevant Radiology Images available: Yes. Pre-op teaching completed and patient verbalized understanding. The risks, benefits, and alternatives of sedation and/or procedure were discussed by physician. The patient agrees to continue. Procedure started. PERRLA. Strong, equal hand adjunct nursing faculty bilaterally. Lungs clear x 5 lobes. Oxygen started at 2liters/min via nasal canula. right groin was prepped with chloroprep then draped in the usual sterile fashion. Physician notified. Equipment: 6F - Femoral. Cardiac Cath Pack. FX Aligned Manifold Kit Model BT 2000. Heparinized Saline (2 units/mL), 1000 mL bag. Kit, Micropuncture. Physician arrived. Baseline sample Acquired. HR: 141 BPM. Inventory is CRD 6FR AL .75 GUIDE. Physician scrubbed in. Immediate Pre-Procedure Time Out. Correct Patient: Yes; Correct Procedure: Yes; Correct Site: Yes; Correct Patient Position: Yes; Correct Supplies: Yes; Dried Flammable Prep: Yes; Blood Products Available: No;. Lidocaine 1% infiltrated to the right groin. Arterial access obtained with micropuncture set. 6 palauan AL 0.75 guide catheter was inserted over the wire. Runthrough guidewire inserted. Inventory is TR 180cm Runthrough NS extra floppy 0.014 wire. Inventory is TR 180cm Runthrough NS extra floppy 0.014 wire. wire out. new runthrough wire inserted. catheter out. wire out. new 6 palau[place] AL 0.75 guide catheter was inserted over the wire. Runthrough guidewire inserted. wire out. Guide catheter out. Inventory is CRD 6FR AL 1 GUIDE. 6 palauan AL I guide catheter was inserted over the wire. Runthrough guidewire inserted. wire out. Guide catheter out. 6 palau[place] JR 5 guide catheter was inserted over the wire. Runthrough guidewire was advanced through the guide catheter to lesion in the distal RCA. Inflation number : 1 A AB TREK 3.00X12 RX BALLOON was prepped and advanced across the Prox RCA , then inflated to 20 [place] for 0:07 seconds. Inflation number: 2 The AB TREK 3.00X12 RX BALLOON was reinflated across the Prox RCA, to 20 [place] for 0:14 seconds. Inflation number: 1 The AB TREK 3.00X12 RX BALLOON was reinflated across the Mid RCA, to 20 [place] for 0:21 seconds. Inflation number: 2 The AB TREK 3.00X12 RX BALLOON was reinflated across the Mid RCA, to 20 [place] for 0:15 seconds. Inflation number: 3 The AB TREK 3.00X12 RX BALLOON was reinflated across the Mid RCA, to 14 [place]A for 0:15 seconds. Results checked. Balloon out. ivus catheter inserted over wire. ivus pullback performed. ivus catheter out. ACT drawn. Results 196 seconds. Therapeutic limits - pre-heparin administration 90-150 seconds and monitoring heparin during a vascular procedure >250 seconds. Results checked. Wire out. Guide catheter out. A Suture was successful obtaining hemostatsis at the Right Femoral artery insertion site. Sheath(s) sutured into position with 2-0 silk and sterile 4x4's and Op-site applied over the site. No oozing or signs and symptoms of hematoma noted. Post Procedure: Pulses reassessed and unchanged. No VTE prophylaxis required. Medication's Wasted: Lidocaine 1% = 11 mL. Medication's Wasted: Heparin = 1000 units. Medication's Wasted: Nitro = 50 mg. Total IV fluids: 80 mL. Fluoro: 26:10. Contrast type used: Omnipaque 300 mgI/mL, 500 mL bottle. [id number]. Post-op diagnosis: occulded RCA stent. Complications: none. Estimated blood loss: 5mL-10mL. Procedure completed. Patient transferred by bed to ICU. Vital chart was stopped. Access Site Site: Right Femoral artery Sheath Size: 6 Fr Hemostasis Method: Suture Hemostasis Success: Successful Procedure Medications Start: 5:29 PM Stop: 5:29 PM Medication: Versed Amount: 1 mg Route: I.V. Start: 5:29 PM Stop: 5:29 PM Medication: Fentanyl Amount: 50 mcg Route: I.V. Start: 5:29 PM Stop: 5:29 PM Medication: Versed Amount: 1 mg Route: I.V. Start: 5:32 PM Stop: 5:32 PM Medication: Versed Amount: 1 mg Route: I.V. Start: 5:32 PM Stop: 5:32 PM Medication: Fentanyl Amount: 50 mcg Route: I.V. Start: 5:34 PM Stop: 5:34 PM Medication: Heparin Amount: 5000 units Route: I.V. Start: 5:37 PM Stop: 5:37 PM Medication: Heparin Amount: 3000 units Route: I.V. Start: 5:47 PM Stop: 5:47 PM Medication: Versed Amount: 1 mg Route: I.V. Start: 5:50 PM Stop: 5:50 PM Medication: Heparin Amount: 1000 units Route: I.V. Start: 5:57 PM Stop: 5:57 PM Medication: Heparin Amount: 1000 units Route: I.V. Start: 5:59 PM Stop: 5:59 PM Medication: Versed Amount: 1 mg Route: I.V. Start: 5:59 PM Stop: 5:59 PM Medication: Fentanyl Amount: 25 mcg Route: I.V. Start: 6:13 PM Stop: 6:13 PM Medication: Versed Amount: 1 mg Route: I.V. Start: 6:20 PM Stop: 6:20 PM Medication: Heparin Amount: 3000 units Route: I.V. Start: 6:25 PM Stop: 6:25 PM Medication: Aggrastat 12.5 mg/250 mL Amount: 40 ml Route: I.V. bolus Start: 6:25 PM Stop: 6:25 PM Medication: Aggrastat 12.5 mg/250 mL Amount: 14.4 ml/hr Route: I.V. drip Start: 6:25 PM Stop: 6:25 PM Medication: Brilinta Amount: 180 mg Route: P.O. I, the attending physician, have reviewed and verified all procedure medications. Yes, all medications given per verbal order History/Risk Factors Hypertension: Yes Dyslipidemia: No Peripheral Arterial Disease (PAD): Yes Myocardial Infarction (PA): Yes Obesity: Yes Renal Disease: No Tobacco Use: Former Prior Interventions PCI: Yes CABG: No Valve Surgery: No Date of PCI: 05/21/2021 Report Signatures Finalized by Rashaad Jensen MD on 06/05/2021 02:16 PM
--- NOTE | 2021-05-23 18:24 | PC.NURSE ---
pt to slab stripper with RN and RT at [id number]
--- NOTE | 2021-05-23 18:55 | PC.NURSE ---
pt returned to room at 1845. Connected to ICU monitor. Aggrastat infusion at 14.4ml/h. Infusion to be stopped at 2230 per MD order. Will monitor
--- NOTE | 2021-05-23 19:10 | ECG_ITS ---
[facility] Test Date: 2021-05-23 Pat Name: Capri Tobar Department: Room: ICU07 Gender: Female Life Teacher: : 1945 Requested By: Rashaad Jensen Order Number: [id number] Reading MD: ANGELIC GLEZ Measurements Intervals [place] Rate: 96 P: 72 [place]: 156 QRS: 36 QRSD: 90 T: -60 QT: 374 QTc: 474 Interpretive Statements SINUS RHYTHM LOW QRS VOLTAGE IN PRECORDIAL LEADS [QRS DEFLECTION < 1.0 mV IN CHEST LEADS] INFERIOR MYOCARDIAL INFARCTION , PROBABLY RECENT [40+ ms Q WAVE AND/OR ST/T ABNORMALITY IN II/aVF] ACUTE DE Compared to ECG 05/23/2021 16:26:19 ST (T wave) deviation no longer present Myocardial infarct finding still present Electronically Signed On 05-23-2021 23:55:55 CDT by ANGELIC GLEZ [id number]
--- NOTE | 2021-05-23 19:16 | PC.NURSE ---
Arrived back from bobcat driver/labor approximately 1849, this nurse advised to turn Agrastat off at 2230 by lab engineer staff, Sheath site clean dry intact distal pulses present
--- NOTE | 2021-05-23 19:57 | PC.NURSE ---
patient keeps trying to get out of bed, disorientated to location time and situation, Dr. Chandra contacted, approved order for 1:1 sitter and foly cath
--- NOTE | 2021-05-23 21:23 | PC.NURSE ---
patient continues to attempt to get out of bed, refusing care, not keeping heart cath site flat and straight, refused foly cath. 1:1 sitter at bedside
--- NOTE | 2021-05-23 21:37 | PC.NURSE ---
Patient refused PRN Morphine when c/o of MO
--- NOTE | 2021-05-23 23:15 | PC.NURSE ---
Patient again refused ordered foly cath
--- NOTE | 2021-05-23 23:51 | PC.NURSE ---
patient continues to not be compliant with care, 1:1 sitter at bedside
[2021-05-24] VITALS (45 sets, daily range): BP systolic 79–160; BP diastolic 52–90; PULSE 65–104; RESP 12–26; TEMP 36.5–36.7; O2SAT 90–99
[2021-05-24] MEDS: morphine 4 mg/mL SDV 1 mL IVP ×3 (01:29→22:32)
[2021-05-24] MEDS: ziprasidone 20 mg/mL SDV IM (01:33)
--- NOTE | 2021-05-24 01:39 | PC.NURSE ---
Lab attempted to draw PTT, patient refused, Hematoma noted to R groin sheath site, patient started hitting staff and bitting at staff when staff attempted to assess site and apply pressure. abnormal breathing pattern noted. Dr. Welch contacted and updated, gave t..o to draw cmp and ABG, consulted Hospitalist
[2021-05-24 01:58] LABS: ABG PCO2 31.9 mmHg (35-45); ABG PH Result 7.34 (7.35-7.45); Arterial Blood Gas Hematocrit 39.9 % (37-47); Base Excess ABG -7.4 mmol/L (-2.0-2.0); Blood Gas Sample Site Brachial, right; Blood Gas Sample Type Arterial; Carboxyhemoglobin 1.1 %THgb (0.4-20.1); HCO3 ABG 17.3 mmol/L (22-26); HGB O2 Sat 94.1 % (95-100); Ionized Calcium Level - ABG 1.2 mmol/L (1.1-1.4); Methemoglobin 0.8 % (0.4-1.5); Oxygen Saturation ABG 95.9; PO2 ABG 79.9 mmHg (80.0-100.0); Potassium Level - ABG 4.1 mmol/L (3.5-5.0)
[2021-05-24 01:59] LABS: Oxygen Device NC
[2021-05-24 02:07] LABS: Partial Thromboplastin Time 35.6 SECONDS (23.9-36.7)
--- NOTE | 2021-05-24 02:07 | PC.NURSE ---
Dr. dang at bedside, this nurse was informed HCP is to put n.o. in
[2021-05-24 02:11] LABS: Basophils # 0.1 10^3/uL (0.0-0.1); Basophils % 0.3 %; Eosinophils # 0.1 10^3/uL (0.0-0.8); Eosinophils % 0.5 %; Hematocrit 46.7 % (37.0-47.0); Lymphocytes # 3.3 10^3/uL (0.8-4.8); Lymphocytes % 19.7 %; Mean Corpuscular Hemoglobin 28.5 pg (28.0-34.0); Mean Corpuscular Volume 95.1 fl (81-99); Mean Platelet Volume 10.2 fL (7.4-10.4); Monocytes # 1.2 10^3/uL (0.2-0.9); Monocytes % 7.4 %; Neutrophils # 11.92 10^3/uL (1.8-7.7); Neutrophils % 71.6 %; Nucleated Red Blood Cells % 0 %; Platelet Count 286 10^3/cmm (130-400); Red Blood Count 4.91 10^6/uL (4.1-5.3); Red Cell Distribution Width 16.9 % (12.1-15.1); White Blood Count 16.6 10^3/uL (4.0-10.0)
[2021-05-24 02:14] LABS: Alanine Aminotransferase 22 U/L (0-33); Albumin Level 3.2 g/dL (3.5-5.2); Alkaline Phosphatase 62 IU/L (35-105); Anion Gap 24.7 (5-19); Aspartate Amino Transferase 101 U/L (0-32); Blood Urea Nitrogen 18 mg/dL (8-23); Calcium 8.8 mg/dL (8.5-10.5); Carbon Dioxide 12 mmol/L (22-29); Chloride 103 mmol/L (98-107); Creatinine Clr Calc Pharmacy 57.4655; Globulin 3.2 g/dL (1.3-4.6); Glucose 118 mg/dL (65-115); Osmolality Calculated 283 mOsm/kg (285-295); Potassium 4.7 mmol/L (3.5-5.1); Sodium 135 mmol/L (136-145); Total Bilirubin 0.6 mg/dL (0.15-1.2); Total Protein 6.4 g/dL (6.6-8.7)
--- NOTE | 2021-05-24 02:31 | PM.CONSULT ---
Providers/Reason For Consult Consulting Physician/Specialty*: Dr. Jensen Reason for Consult*: 65 minutes are spent on this encounter Attending Physician: Rashaad Jensen M.D Primary Care Provider: Jenniffer Jenkins MD History of Present Illness History of Present Illness Capri Tobar is a 76 year old female with past medical history of coronary artery disease, peripheral vascular disease, hypertension. She is in ICU with diagnosis of STEMI. She has received 5 drug-eluting stents to her RCA. Currently on dual antiplatelet therapy. I was kindly asked by Dr. Jensen to see the patient due to acute psychosis and agitation which she developed several hours ago. She was noncooperative and agitated, trying to pull her lines. After administration of Geodon now she feels better. I was kindly asked by Dr. Jensen to evaluate the patient and help with the management of her psychosis. Currently the patient is awake, slightly sleepy. Her responses are adequate. She seems to be slightly confused. Oriented x2. She complains of being thirsty. She denies any chest pain, shortness of breath, diaphoresis, nausea or vomiting, headache, muscle weakness, problems with speech. The nurses did not observe any facial asymmetry, dysarthria, aphasia. The patient denies similar episodes in the past. Review of Systems General: Reports: 10 or more systems reviewed and unremarkable except in HPI and below Meds/Allergies Home Medications and Allergies Home Medications Medication Instructions Recorded Confirmed Last Taken Type allopurinol 100 mg tablet 100 mg PO QAM 09/08/19 05/23/21 12/18/20 History amitriptyline 25 mg tablet 25 mg PO BEDTIME 09/08/19 05/23/21 12/17/20 History pantoprazole 40 mg tablet,delayed 40 mg PO QAM 09/08/19 05/23/21 12/18/20 History release simvastatin 20 mg tablet 20 mg PO BEDTIME 09/08/19 05/23/21 12/17/20 History acetaminophen 650 mg 1,300 mg PO Q12H PRN tab 07/30/20 05/23/21 12/17/20 History tablet,extended release albuterol sulfate [ProAir HFA] 2 puff INHALATION Q4H PRN 10/04/20 05/23/21 12/17/20 History glipizide 5 mg PO QAM 10/04/20 05/23/21 12/18/20 History lisinopril See Rx Instructions .ROUTE .COMPLEX 10/04/20 05/23/21 12/18/20 History empagliflozin 25 mg tablet 25 mg PO DAILY 01/30/21 05/23/21 Unknown History insulin glargine 100 unit/mL (3 25 unit SUBCUT QAM ml 01/30/21 05/23/21 Unknown History mL) subcutaneous pen nitroglycerin 0.4 mg sublingual 0.4 mg SUBLINGUAL Q5M PRN #25 tab 04/28/21 05/23/21 Unknown Rx tablet ondansetron 4 mg PO Q6H PRN #14 tab 05/05/21 05/23/21 Unknown Rx baclofen 5 mg PO TID PRN 05/23/21 05/23/21 Unknown History budesonide-formoterol [Symbicort] 1 puff INHALATION BID 05/23/21 05/23/21 Unknown History gabapentin 300 mg PO TID 05/23/21 05/23/21 Unknown History levothyroxine 50 mcg PO QAM 05/23/21 05/23/21 Unknown History metformin 500 mg PO QAM 05/23/21 05/23/21 Unknown History Allergies Allergy/AdvReac Type Severity Reaction Status Date / Time codeine Allergy Unknown Unknown Verified 05/23/21 11:24 tetanus and diphtheria Allergy Unknown Verified 05/23/21 11:24 toxoids Tetanus Vaccines and Toxoid Allergy Unknown Verified 05/23/21 11:24 Current Medications Current Medications Generic Name Dose Route Start Last Admin Trade Name Freq PRN Reason Stop Dose Admin Acetaminophen 650 mg 05/21/21 23:33 05/23/21 14:48 Acetaminophen 325 Mg Tablet PO 650 mg Q6H PRN Administration MILD PAIN Aspirin 81 mg 05/22/21 09:00 05/23/21 08:17 Aspirin 81 Mg Ec Tablet PO Not Given DAILY CHARLI Atorvastatin Calcium 80 mg 05/22/21 21:00 05/23/21 20:29 Atorvastatin 40 Mg Tablet PO Not Given BEDTIME CHARLI Clopidogrel Bisulfate 75 mg 05/22/21 09:00 05/23/21 08:17 Clopidogrel 75 Mg Tablet PO 75 mg DAILY CHARLI Administration Gabapentin 100 mg 05/22/21 16:00 05/23/21 20:29 Gabapentin 100 Mg Capsule PO Not Given TID CHARLI Sodium Chloride 1,000 mls @ 100 mls/hr 05/22/21 23:00 05/23/21 16:37 Sodium Chloride 0.9% IV 100 mls/hr .Q10H CHARLI Administration Insulin Human Lispro 0 unit 05/22/21 18:00 05/23/21 22:00 Insulin Lispro 100 Unit/1 Ml SUBCUT Not Given WM&BEDTIME [facility] Protocol Morphine Sulfate 4 mg 05/21/21 21:21 05/24/21 01:29 Morphine 4 Mg/Ml Sdv 1 Ml IVP 4 mg Q5M PRN Administration CHEST PAIN Nitroglycerin 0.4 mg 05/21/21 23:33 05/23/21 17:04 Nitroglycerin 0.4 Mg Sublingual Tablet SUBLINGUAL 0.4 mg Q5M PRN Administration CHEST PAIN Ondansetron HCl 4 mg 05/22/21 21:30 05/23/21 16:25 Ondansetron 2 Mg/Ml Sdv 2 Ml IVP 4 mg Q6H PRN Administration NAUSEA AND VOMITING PFSH Acute PFSH: Medical History Coronary artery disease History of [place] (myocardial infarction) HTN (hypertension) PAD (peripheral artery disease) Surgical History H/O section H/O esophagogastroduodenoscopy (12/19/20) Gastric erosions History of cholecystectomy S/P appendectomy S/P breast biopsy S/P femoral-popliteal bypass surgery S/P PTCA (percutaneous transluminal coronary angioplasty) Status post colonoscopy (12/19/20) Extensive diverticulosis Family History Other CAD (coronary artery disease) Cancer Diabetes Hypertension Stroke Social History Smoking and tobacco status: former smoker History of recent travel: No Vitals/I&O/Wt Last Vital Signs Temp 97.8 F 05/23/21 12:00 Pulse 93 05/24/21 01:00 Resp 22 H 05/24/21 01:00 BP 87/61 05/24/21 01:00 Pulse Ox 95 05/24/21 01:00 05/23/21 05/23/21 05/24/21 14:59 22:59 06:59 Intake Total 720 / 720 695 / 1415 Balance 720 / 720 695 / 1415 Physical Exam Narrative: EXAM NARRATIVE: A little sleepy but awake. Her responses are adequate. Confused, oriented x2. Does not remember why she is in the hospital. Normal speech. No facial asymmetry. Skin is warm and dry. Dry mucous membranes Neck supple. No JVD Lungs are clear bilaterally. No respiratory distress Heart S1, S2, regular Abdomen soft, nontender, bowel sounds are present Extremities: No cyanosis or calf tenderness bilaterally. Normal capillary refill. Neuro examination. Cranial nerves II through XII seem to be intact. No focal weakness or sensory loss. Data Labs: Other Labs: Laboratory Results WBC 16.6 10^3/uL (4.0 -10.0) H 05/24/21 01:30 RBC 4.91 10^6/uL (4.1 -5.3) 05/24/21 01:30 Hgb 14.0 g/dL (11.5-1 5.3) 05/24/21 01:30 Hct 46.7 % (37.0-47.0 ) 05/24/21 01:30 MCV 95.1 fl (81-99) 05/24/21 01:30 MCH 28.5 pg (28.0-34. 0) 05/24/21 01:30 MCHC 30.0 g/dL (30.0-3 6.0) 05/24/21 01:30 RDW 16.9 % (12.1-15.1 ) H 05/24/21 01:30 Plt Count 286 10^3/cmm (130 -400) 05/24/21 01:30 MPV 10.2 fL (7.4-10.4 ) 05/24/21 01:30 Neut % (Auto) 71.6 % 05/24/21 01:30 Lymph % (Auto) 19.7 % 05/24/21 01:30 Alexander % (Auto) 7.4 % 05/24/21 01:30 Eos % (Auto) 0.5 % 05/24/21 01:30 Baso % (Auto) 0.3 % 05/24/21 01:30 Neut # (Auto) 11.92 10^3/uL (1. 8-7.7) H 05/24/21 01:30 Lymph # (Auto) 3.3 10^3/uL (0.8- 4.8) 05/24/21 01:30 Alexander # (Auto) 1.2 10^3/uL (0.2- 0.9) H 05/24/21 01:30 Eos # (Auto) 0.1 10^3/uL (0.0- 0.8) 05/24/21 01:30 Baso # (Auto) 0.1 10^3/uL (0.0- 0.1) 05/24/21 01:30 Nucleated RBC % (a uto) 0 % 05/24/21 01:30 Nucleated RBCs # 0.0 /100WBC 05/24/21 01:30 APTT 35.6 SECONDS (23. 9-36.7) 05/24/21 01:30 Specimen Type Arterial 05/24/21 01:48 Sample Site Brachial, right 05/24/21 01:48 ABG pH 7.34 (7.35-7.45) L 05/24/21 01:48 ABG pCO2 31.9 mmHg (35-45) L 05/24/21 01:48 ABG pO2 79.9 mmHg (80.0-1 00.0) L 05/24/21 01:48 ABG HCO3 17.3 mmol/L (22-2 6) L 05/24/21 01:48 ABG O2 Saturation 95.9 05/24/21 01:48 ABG Base Excess -7.4 mmol/L (-2.0 -2.0) L 05/24/21 01:48 [place]bin Test N/a 05/24/21 01:48 A-a O2 Gradient 4.0 mmHg (5-10) L 05/24/21 01:48 Hematocrit 39.9 % (37-47) 05/24/21 01:48 Hgb O2 Saturation 94.1 % (95-100) L 05/24/21 01:48 Carboxyhemoglobin 1.1 %THgb (0.4-20 .1) 05/24/21 01:48 Methemoglobin 0.8 % (0.4-1.5) 05/24/21 01:48 Total Hemoglobin 13.0 g/dL (12-16) 05/24/21 01:48 Sodium 141.0 mmol/L (131 -143) 05/24/21 01:48 Potassium 4.1 mmol/L (3.5-5 .0) 05/24/21 01:48 Glucose 155.0 mg/dL (70-1 15) H 05/24/21 01:48 Ionized Calcium 1.2 mmol/L (1.1-1 .4) 05/24/21 01:48 O2 Delivery Device Nc 05/24/21 01:48 O2 Liters/Min 3.0 % 05/24/21 01:48 Senior Buyer Planner ID Hinja 05/24/21 01:48 Sodium 135 mmol/L (136-1 45) L 05/24/21 01:30 Potassium 4.7 mmol/L (3.5-5 .1) 05/24/21 01:30 Chloride 103 mmol/L (98-10 7) 05/24/21 01:30 Carbon Dioxide 12 mmol/L (22-29) L 05/24/21 01:30 Anion Gap 24.7 (5-19) H 05/24/21 01:30 BUN 18 mg/dL (8-23) 05/24/21 01:30 Creatinine 0.7 mg/dL (0.5-0. 9) 05/24/21 01:30 GFR Calculation Not Reportable 05/24/21 01:30 Glucose 118 mg/dL (65-115 ) H 05/24/21 01:30 POC Glucose 101 mg/dL (70-110 ) 05/23/21 16:13 Calculated Osmolal ity 283 mOsm/kg (285- 295) L 05/24/21 01:30 Calcium 8.8 mg/dL (8.5-10 .5) 05/24/21 01:30 Total Bilirubin 0.6 mg/dL (0.15-1 .2) 05/24/21 01:30 AST 101 U/L (0-32) H 05/24/21 01:30 ALT 22 U/L (0-33) 05/24/21 01:30 Alkaline Phosphata se 62 IU/L (35-105) 05/24/21 01:30 Troponin T Baselin e 17 ng/L (0-10) H 05/21/21 21:27 Total Protein 6.4 g/dL (6.6-8.7 ) L 05/24/21 01:30 Albumin 3.2 g/dL (3.5-5.2 ) L 05/24/21 01:30 Globulin 3.2 g/dL (1.3-4.6 ) 05/24/21 01:30 A&P Assessment and plan (1) ST elevation myocardial infarction (STEMI): Status: Acute Qualifiers: Involved coronary artery: unspecified coronary artery Qualified Code(s): I21.3 - ST elevation (STEMI) myocardial infarction of unspecified site (2) Coronary artery disease: Status: Acute Qualifiers: Coronary Disease-Associated Artery/Lesion type: [place] artery [place] vs. transplanted heart: [place] heart Associated angina: without angina Qualified Code(s): I25.10 - Atherosclerotic heart disease of [place] coronary artery without angina pectoris (3) Delirium: Status: Acute (4) Hypotension: Status: Acute (5) Acidosis, metabolic: Status: Acute (6) Dehydration: Status: Acute Additional A&P Information 76-year-old female with past medical history of coronary artery disease, hypertension, diabetes, status post cardiac catheterization and 5 drug-eluting stents to RCA who developed acute delirium several hours ago. I was kindly asked by Dr. Jensen to evaluate the patient and help with the management of her medical problems. Acute psychosis/delirium. Differential includes dehydration, infection, hospital psychosis. I do not see any neurologic focal findings. She has improved with Geodon. We will continue supportive care and management of any new problems that we identified. Additionally we will check her ammonia level and TSH. Metabolic acidosis. This could be due to infection or dehydration. We will check UA and UCS. Will check lactic acid level and procalcitonin. If these are elevated will consider antibiotics and additional testing to identify the source of infection. For now I will give her a bolus of LR. She already has a order for maintenance NS at 100 cc/h which we will continue. We will continue monitoring her labs and adjust fluids and electrolytes accordingly. Coronary artery disease. We will continue management per Dr. Jensen. She is already on dual antiplatelet therapy. She is stable at this point. DVT prophylaxis. Teds and SCDs. Will consider anticoagulation for DVT prophylaxis after we discussed with Dr. Jensen in the morning. Thank you very much for allowing me to participate in treatment of this patient. Coding Level of Care Code Acute Multiple Pressure Riveter Operator for Param Fwjessi Diagnoses ST elevation myocardial infarction (STEMI) I21.3 Involved coronary artery: unspecified coronary artery Coronary artery disease I25.10 Coronary Disease-Associated Artery/Lesion type: [place] artery [place] vs. transplanted heart: [place] heart Associated angina: without angina Delirium R41.0 Hypotension I95.9 Acidosis, metabolic E87.2 Dehydration E86.0
--- NOTE | 2021-05-24 03:16 | PC.NURSE ---
Sheath removed, Hematoma noted same size as prior to pulling, distal pulses present
[2021-05-24] MEDS: lactated ringers 500 ML 999 ML IV (03:28)
[2021-05-24] MEDS: acetaminophen 325 mg Tablet 650 MG PO (03:50)
--- NOTE | 2021-05-24 03:57 | PC.NURSE ---
Patient more cooperative at this time, restraints removed at this time, R groin site clean dry and intact
[2021-05-24 04:24] LABS: Albumin Level 3.3 g/dL (3.5-5.2); Ammonia 28 umol/L (11-51); Anion Gap 20.6 (5-19); Blood Urea Nitrogen 19 mg/dL (8-23); Calcium 8.2 mg/dL (8.5-10.5); Carbon Dioxide 16 mmol/L (22-29); Chloride 105 mmol/L (98-107); Creatinine Clr Calc Pharmacy 57.4655; Glucose 129 mg/dL (65-115); Phosphorus 3.2 mg/dL (2.5-4.5); Potassium 4.6 mmol/L (3.5-5.1); Sodium 137 mmol/L (136-145)
[2021-05-24 04:25] LABS: Lactate (Lactic Acid level) 1.2 mmol/L (0.5-2.2)
[2021-05-24 04:35] LABS: Procalcitonin 0.05 ng/mL (0-0.5); Thyroid Stimulating Hormone 4.26 uIU/mL (0.27-4.20)
[2021-05-24 05:59] LABS: Urine Color Yellow (Yellow)
[2021-05-24 06:00] LABS: Add Urine Microscopic? YES; Bilirubin Urine Neg (Negative); Blood Urine 2+ (Negative); Glucose Urine UA 4+ (Normal); Ketones Urine 2+ (Negative); Leukocyte Esterase Urine Negative (Negative); Nitrate Urine Negative (Negative); Protein Urine Neg (Negative); Specific Gravity, Urine 1.015 (1.005-1.030); Urine Appearance SL Hazy (CLEAR); Urobilinogen Urine Norm (Negative); pH Urine 5 (5-7)
[2021-05-24 06:02] LABS: Add Urine Culture? Yes; Bacteria Urine 1+ /hpf; RBC Urine 0-4 /hpf (0-2); Squamous Epithelial Cell Urine 0-4 /hpf (0-5); WBC Urine 0-4 /hpf (0-5)
[2021-05-24 06:46] LABS: Anion Gap 23.7 (5-19); Blood Urea Nitrogen 19 mg/dL (8-23); Calcium 8.2 mg/dL (8.5-10.5); Carbon Dioxide 14 mmol/L (22-29); Chloride 106 mmol/L (98-107); Creatinine Clr Calc Pharmacy 57.4655; Glucose 130 mg/dL (65-115); Osmolality Calculated 292 mOsm/kg (285-295); Potassium 4.7 mmol/L (3.5-5.1); Sodium 139 mmol/L (136-145)
[2021-05-24 06:59] LABS: Basophils % 0.3 %; Eosinophils # 0.1 10^3/uL (0.0-0.8); Eosinophils % 0.4 %; Hematocrit 40.7 % (37.0-47.0); Hemoglobin 12.4 g/dL (11.5-15.3); Lymphocytes # 0.9 10^3/uL (0.8-4.8); Lymphocytes % 7.6 %; Mean Corpuscular HGB Conc 30.5 g/dL (30.0-36.0); Mean Corpuscular Volume 91.9 fl (81-99); Mean Platelet Volume 10.5 fL (7.4-10.4); Monocytes # 0.8 10^3/uL (0.2-0.9); Monocytes % 6.5 %; Neutrophils # 9.91 10^3/uL (1.8-7.7); Neutrophils % 84.8 %; Nucleated Red Blood Cells % 0 %; Platelet Count 245 10^3/cmm (130-400); Red Blood Count 4.43 10^6/uL (4.1-5.3); Red Cell Distribution Width 16.6 % (12.1-15.1); White Blood Count 11.7 10^3/uL (4.0-10.0)
[2021-05-24 07:18] LABS: Glucose Point of Care 102 mg/dL (70-110)
[2021-05-24] MEDS: ticagrelor 90 mg Tablet PO ×2 (08:27→17:53)
[2021-05-24] MEDS: aspirin 81 mg EC Tablet PO (08:27)
[2021-05-24] MEDS: gabapentin 100 mg Capsule PO ×3 (08:28→20:07)
--- NOTE | 2021-05-24 10:37 | P.PN_ITS ---
Subjective Subjective: Interval history: Patient had confusion last night that has resolved now. She is doing well. She is chest pain-free. EKG is resolved. Has medium sized hematoma at right femoral access site. Vitals/I&O/Wt Last Vital Signs Temp 97.7 F 05/24/21 08:30 Pulse 92 05/24/21 08:30 Resp 17 05/24/21 08:30 BP 113/54 05/24/21 08:30 Pulse Ox 90 05/24/21 08:30 05/23/21 05/24/21 05/24/21 22:59 06:59 14:59 Intake Total 945 / 1665 500 / 2165 120 / 120 Output Total 500 / 500 Balance 945 / 1665 0 / 1665 120 / 120 Physical Exam Narrative: EXAM NARRATIVE: GENERAL: Patient is alert, awake and oriented x3. [] NECK: No jugular vein distension. [] HEENT: No cyanosis. No icterus. No pallor. [] HEART: Regular S1 and S2. No murmur, rub or gallop. [] LUNGS: Clear to auscultate bilaterally. [] ABDOMEN: Soft, nontender and nondistended. Positive bowel sounds. No guarding, rebound or tenderness. [] CENTRAL NERVOUS SYSTEM: Grossly nonfocal. [] EXTREMITIES: Lower extremities with 1+ edema bilaterally. Pulses palpable in the lower extremities, both dorsalis pedis and posterior tibial. [] Data : 05/24/21 03:39 05/24/21 03:39 A&P Assessment and plan (1) ST elevation myocardial infarction (STEMI): Status: Acute Qualifiers: Involved coronary artery: unspecified coronary artery Qualified Code(s): I21.3 - ST elevation (STEMI) myocardial infarction of unspecified site (2) History of [place] (myocardial infarction): Status: Acute (3) Coronary artery disease: Status: Acute Qualifiers: Coronary Disease-Associated Artery/Lesion type: [place] artery [place] vs. transplanted heart: [place] heart Associated angina: without angina Qualified Code(s): I25.10 - Atherosclerotic heart disease of [place] coronary artery without angina pectoris (4) PAD (peripheral artery disease): Status: Acute (5) HTN (hypertension): Status: Acute Qualifiers: Hypertension type: essential hypertension Qualified Code(s): I10 - Essential (primary) hypertension (6) Diabetes: Status: Acute Patient presented with acute STEMI secondary to occlusion of mid RCA. She underwent successful revascularization with GHISLAINE x3. Over the next 2 days she developed stent thrombosis x2. Underwent successful revascularization with balloon angioplasty. Also her distal RCA stenosis was revascularized with GHISLAINE x1. Given her multiple stent thrombosis episodes, we performed IVUS which showed well-expanded stents. 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 We have switched her Plavix to Brilinta. Had confusion likely from delirium last night that has resolved now. Consulted hospitalist service. Appreciate recommendations. Aspirin and Brilinta for atleast 1 year High intensity statin therapy. Continue ICU stay for now. Attestations Medical Necessity Statement*: Care expected to cross 2 midnights. Patient had recurrent stent thrombosis events after initial STEMI revascularization. Will need continued ICU care at this time. Coding Level of Care Code Acute Chalk Tester for Param Carpio Diagnoses ST elevation myocardial infarction (STEMI) I21.3 Involved coronary artery: unspecified coronary artery History of MD (myocardial infarction) I25.2 Coronary artery disease I25.10 Coronary Disease-Associated Artery/Lesion type: [place] artery [place] vs. transplanted heart: [place] heart Associated angina: without angina PAD (peripheral artery disease) I73.9 HTN (hypertension) I10 Hypertension type: essential hypertension Diabetes E11.9
[2021-05-24] MEDS: sodium chloride 0.9% 1,000 ML 100 ML IV ×2 (11:03→20:08)
[2021-05-24 11:29] LABS: Glucose Point of Care 109 mg/dL (70-110)
[2021-05-24 17:06] LABS: Glucose Point of Care 109 mg/dL (70-110)
--- NOTE | 2021-05-24 18:10 | PC.NURSE ---
Shift Note Frequent safety and comfort rounds continue. Orders and/or nursing care completed as indicated. Patient monitored for response to intervention and treatment(s). Education provided includes treatment plan, CL use, medications, s/s of TN and repositioning. Pt verbalizes understanding but requires reminders. Denies any pain. Several episodes of urge incontinence. Pt able to verbalize need for bedpan. VSS. No s/s of CP today. Hematoma to R groin has not grown in size today. Will continue to monitor.
[2021-05-24] MEDS: metoprolol tartrate 25 mg Tablet PO (20:07)
[2021-05-24] MEDS: atorvastatin 40 mg Tablet 80 MG PO (20:07)
[2021-05-24 20:17] LABS: Glucose Point of Care 117 mg/dL (70-110)
[2021-05-25] VITALS (43 sets, daily range): BP systolic 92–166; BP diastolic 52–106; PULSE 72–142; RESP 9–31; TEMP 36.7; O2SAT 81–98
[2021-05-25] MEDS: morphine 4 mg/mL SDV 1 mL IVP ×3 (00:41→05:36)
[2021-05-25 03:44] LABS: Basophils % 0.4 %; Eosinophils # 0.3 10^3/uL (0.0-0.8); Eosinophils % 2.9 %; Hemoglobin 12.2 g/dL (11.5-15.3); Lymphocytes # 1.8 10^3/uL (0.8-4.8); Lymphocytes % 17.3 %; Mean Corpuscular HGB Conc 30.5 g/dL (30.0-36.0); Mean Corpuscular Hemoglobin 27.9 pg (28.0-34.0); Mean Corpuscular Volume 91.3 fl (81-99); Mean Platelet Volume 10.2 fL (7.4-10.4); Monocytes # 0.8 10^3/uL (0.2-0.9); Monocytes % 7.8 %; Neutrophils # 7.24 10^3/uL (1.8-7.7); Nucleated Red Blood Cells % 0 %; Platelet Count 223 10^3/cmm (130-400); Red Blood Count 4.38 10^6/uL (4.1-5.3); Red Cell Distribution Width 16.9 % (12.1-15.1); White Blood Count 10.2 10^3/uL (4.0-10.0)
[2021-05-25 04:06] LABS: Magnesium 1.8 mg/dL (1.7-2.3)
[2021-05-25 04:47] LABS: Albumin Level 3.2 g/dL (3.5-5.2); Blood Urea Nitrogen 15 mg/dL (8-23); Calcium 8.1 mg/dL (8.5-10.5); Carbon Dioxide 19 mmol/L (22-29); Chloride 107 mmol/L (98-107); Creatinine Clr Calc Pharmacy 57.4655; Glucose 107 mg/dL (65-115); Phosphorus 2.3 mg/dL (2.5-4.5); Sodium 140 mmol/L (136-145)
[2021-05-25] MEDS: sodium chloride 0.9% 1,000 ML 100 ML IV (06:12)
[2021-05-25 07:20] LABS: Glucose Point of Care 95 mg/dL (70-110)
[2021-05-25] MEDS: nitroglycerin 0.4 mg sublingual Tablet SUBLINGUAL (07:38)
[2021-05-25] MEDS: aspirin 81 mg EC Tablet PO (08:15)
[2021-05-25] MEDS: gabapentin 100 mg Capsule PO ×3 (08:15→21:35)
[2021-05-25] MEDS: ticagrelor 90 mg Tablet PO ×2 (08:15→19:08)
--- NOTE | 2021-05-25 10:02 | P.PN_ITS ---
Subjective Subjective: Interval history: Patient is overall doing well. She denies any chest pain. No EKG changes. Vitals/I&O/Wt Last Vital Signs Temp 98.1 F 05/25/21 08:00 Pulse 89 05/25/21 08:30 Resp 18 05/25/21 08:30 BP 109/64 05/25/21 08:30 Pulse Ox 92 05/25/21 08:00 05/24/21 05/25/21 05/25/21 23:59 06:59 14:59 Intake Total 240 / 240 Output Total 450 / 450 Balance -210 / -210 Physical Exam Narrative: EXAM NARRATIVE: GENERAL: Patient is alert, awake and oriented x3. [] NECK: No jugular vein distension. [] HEENT: No cyanosis. No icterus. No pallor. [] HEART: Regular S1 and S2. No murmur, rub or gallop. [] LUNGS: Clear to auscultate bilaterally. [] ABDOMEN: Soft, nontender and nondistended. Positive bowel sounds. No guarding, rebound or tenderness. [] CENTRAL NERVOUS SYSTEM: Grossly nonfocal. [] EXTREMITIES: Lower extremities with 1+ edema bilaterally. Pulses palpable in the lower extremities, both dorsalis pedis and posterior tibial. [] Data : 05/25/21 03:26 05/25/21 03:26 Micro: Microbiology 05/24/21 04:15 Urine Culture - Preliminary Urine,Clean Catch A&P Assessment and plan (1) ST elevation myocardial infarction (STEMI): Status: Acute Qualifiers: Involved coronary artery: unspecified coronary artery Qualified Code(s): I21.3 - ST elevation (STEMI) myocardial infarction of unspecified site (2) History of [place] (myocardial infarction): Status: Acute (3) Coronary artery disease: Status: Acute Qualifiers: Coronary Disease-Associated Artery/Lesion type: [place] artery [place] vs. transplanted heart: [place] heart Associated angina: without angina Qualified Code(s): I25.10 - Atherosclerotic heart disease of [place] coronary artery without angina pectoris (4) PAD (peripheral artery disease): Status: Acute (5) HTN (hypertension): Status: Acute Qualifiers: Hypertension type: essential hypertension Qualified Code(s): I10 - Essential (primary) hypertension (6) Diabetes: Status: Acute Patient presented with acute STEMI secondary to occlusion of mid RCA. She underwent successful revascularization with GHISLAINE x3. Over the next 2 days she developed stent thrombosis x2. Underwent successful revascularization with balloon angioplasty. Also her distal RCA stenosis was revascularized with GHISLAINE x1. Given her multiple stent thrombosis episodes, we performed IVUS which showed well-expanded stents. 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 We have switched her Plavix to Brilinta. Did well yesterday. Continue Brilinta 90mg BID and Aspirin 81mg daily. Delirium has resolved. Aspirin and Brilinta for atleast 1 year High intensity statin therapy. We will transfer patient out to cardiac stepdown unit today as she is stable. Continue telemetry monitoring. Attestations Medical Necessity Statement*: Care expected to cross 2 midnights. Patient had presented with acute ST elevation [place]. Has developed stent thrombosis 2 times which was revascularized. Will be transferred out of ICU today. Coding Level of Care Code Acute Mailing Machine Helper for Param Carpio Diagnoses ST elevation myocardial infarction (STEMI) I21.3 Involved coronary artery: unspecified coronary artery History of [place] (myocardial infarction) I25.2 Coronary artery disease I25.10 Coronary Disease-Associated Artery/Lesion type: [place] artery [place] vs. transplanted heart: [place] heart Associated angina: without angina PAD (peripheral artery disease) I73.9 HTN (hypertension) I10 Hypertension type: essential hypertension Diabetes E11.9
[2021-05-25 11:09] LABS: Glucose Point of Care 132 mg/dL (70-110)
--- NOTE | 2021-05-25 11:55 | PC.SOCIAL ---
IMM update Discussed medicare rights with patient. Verbalized understanding. Provided patient with a copy and placed initialed, timed, dated copy in patient's chart.
[2021-05-25] MEDS: gabapentin 300 mg Capsule PO ×2 (15:38→21:35)
[2021-05-25 16:35] LABS: Glucose Point of Care 131 mg/dL (70-110)
--- NOTE | 2021-05-25 16:51 | PC.NURSE ---
Report given to Brittany Medina, pt transferred to CSU.
--- NOTE | 2021-05-25 19:37 | PC.NURSE ---
recieved from icu at 1650 via w/c, into room 111-2.report received.pt is alert and awake and oriented x 4.denies pain at present.sr on monitor.right wrist with firm bruised area at radial artery cath site and extending to lower inner forearm.radial pulse palpated (1+).right hand is warm to touch and with brisk capillary refill.right groin femoral artery site with large firm bruised area.right leg is warm to touch and with brisk capillary refill.2+ palpable dp pulse noted.pt instructed in activity restrictions s/p radial and femoral artery procedures...and instructed to notify staff for any bleeding,pain,numbness...or for any concerns at all.also,oriented to the room environment.instructed to notify staff if must get up to bathroom/fall precautions.pt verb understanding of instructions.
[2021-05-25 19:55] LABS: Glucose Point of Care 146 mg/dL (70-110)
[2021-05-25] MEDS: metoprolol tartrate 25 mg Tablet PO (21:35)
[2021-05-25] MEDS: amitriptyline 25 mg Tablet PO (21:35)
[2021-05-25] MEDS: atorvastatin 40 mg Tablet 80 MG PO (21:35)
[2021-05-25] MEDS: insulin lispro 100 unit/1 mL SUBCUT (21:36)
[2021-05-25] MEDS: acetaminophen 325 mg Tablet 650 MG PO (22:47)
[2021-05-26] VITALS (12 sets, daily range): BP systolic 123–143; BP diastolic 61–94; PULSE 64–91; RESP 16–25; TEMP 36.6–36.9; O2SAT 96
[2021-05-26] MEDS: levothyroxine 50 mcg Tablet PO (06:33)
[2021-05-26] MEDS: allopurinol 100 mg Tablet PO (06:33)
[2021-05-26] MEDS: pantoprazole DR 40 mg Tablet PO (06:33)
[2021-05-26 08:53] LABS: Basophils # 0.1 10^3/uL (0.0-0.1); Basophils % 0.8 %; Eosinophils # 0.4 10^3/uL (0.0-0.8); Eosinophils % 5.1 %; Hematocrit 41.8 % (37.0-47.0); Hemoglobin 12.8 g/dL (11.5-15.3); Lymphocytes # 1.9 10^3/uL (0.8-4.8); Lymphocytes % 21.6 %; Mean Corpuscular HGB Conc 30.6 g/dL (30.0-36.0); Mean Corpuscular Volume 91.5 fl (81-99); Mean Platelet Volume 10.5 fL (7.4-10.4); Monocytes # 0.7 10^3/uL (0.2-0.9); Monocytes % 7.8 %; Neutrophils # 5.58 10^3/uL (1.8-7.7); Neutrophils % 64.1 %; Nucleated Red Blood Cells % 0 %; Platelet Count 251 10^3/cmm (130-400); Red Blood Count 4.57 10^6/uL (4.1-5.3); Red Cell Distribution Width 17.2 % (12.1-15.1); White Blood Count 8.7 10^3/uL (4.0-10.0)
[2021-05-26] MEDS: ticagrelor 90 mg Tablet PO ×2 (08:58→18:00)
[2021-05-26] MEDS: metoprolol tartrate 25 mg Tablet PO ×2 (08:58→19:38)
[2021-05-26] MEDS: gabapentin 100 mg Capsule PO ×3 (08:58→19:37)
[2021-05-26] MEDS: gabapentin 300 mg Capsule PO ×3 (08:58→19:37)
[2021-05-26] MEDS: aspirin 81 mg EC Tablet PO (08:58)
[2021-05-26] MEDS: lisinopril 10 mg Tablet PO (08:58)
[2021-05-26] MEDS: acetaminophen 325 mg Tablet 650 MG PO ×2 (09:05→15:36)
[2021-05-26] MEDS: baclofen 10 mg Tablet 5 MG PO ×2 (09:06→15:37)
[2021-05-26 09:17] LABS: Blood Urea Nitrogen 14 mg/dL (8-23); Calcium 9.1 mg/dL (8.5-10.5); Carbon Dioxide 23 mmol/L (22-29); Chloride 107 mmol/L (98-107); Creatinine Clr Calc Pharmacy 57.4655; Glucose 129 mg/dL (65-115); Osmolality Calculated 292 mOsm/kg (285-295); Sodium 140 mmol/L (136-145)
[2021-05-26 11:09] LABS: Glucose Point of Care 117 mg/dL (70-110)
--- NOTE | 2021-05-26 12:03 | P.PN_ITS ---
Subjective Subjective: Interval history: Patient is doing well. No complaints of chest pain or shortness of breath Vitals/I&O/Wt Last Vital Signs Temp 98 F 05/26/21 11:08 Pulse 72 05/26/21 11:08 Resp 19 H 05/26/21 11:08 BP 123/65 05/26/21 11:08 Pulse Ox 96 05/26/21 11:08 05/25/21 05/26/21 05/26/21 22:59 06:59 14:59 Intake Total 1360 / 1840 120 / 120 Output Total 1150 / 1800 300 / 2100 500 / 500 Balance 210 / 40 -300 / -260 -380 / -380 Physical Exam Narrative: EXAM NARRATIVE: GENERAL: Patient is alert, awake and oriented x3. [ ] NECK: No jugular vein distension. [] HEENT: No cyanosis. No icterus. No pallor. [] HEART: Regular S1 and S2. No murmur, rub or gallop. [] LUNGS: Clear to auscultate bilaterally. [] ABDOMEN: Soft, nontender and nondistended. Positive bowel sounds. No guarding, rebound or tenderness. [] CENTRAL NERVOUS SYSTEM: Grossly nonfocal. [] EXTREMITIES: Lower extremities with 1+ edema bilaterally. Pulses palpable in the lower extremities, both dorsalis pedis and posterior tibial. [] Data : 05/26/21 08:10 05/26/21 08:10 Micro: Microbiology 05/24/21 04:15 Urine Culture - Final Urine,Clean Catch A&P Assessment and plan (1) ST elevation myocardial infarction (STEMI): Status: Acute Qualifiers: Involved coronary artery: unspecified coronary artery Qualified Code(s): I21.3 - ST elevation (STEMI) myocardial infarction of unspecified site (2) History of [place] (myocardial infarction): Status: Acute (3) Coronary artery disease: Status: Acute Qualifiers: Coronary Disease-Associated Artery/Lesion type: [place] artery [place] vs. transplanted heart: [place] heart Associated angina: without angina Qualified Code(s): I25.10 - Atherosclerotic heart disease of [place] coronary artery without angina pectoris (4) PAD (peripheral artery disease): Status: Acute (5) HTN (hypertension): Status: Acute Qualifiers: Hypertension type: essential hypertension Qualified Code(s): I10 - Essential (primary) hypertension (6) Diabetes: Status: Acute Patient presented with acute STEMI secondary to occlusion of mid RCA. She underwent successful revascularization with GHISLAINE x3. Over the next 2 days she developed stent thrombosis x2. Underwent successful revascularization with balloon angioplasty. Also her distal RCA stenosis was revascularized with GHISLAINE x1. Given her multiple stent thrombosis episodes, we performed IVUS which showed well-expanded stents. Mechanism of recurrent stent thrombosis likely Pl avix resistance. We have switched her Plavix to Brilinta. Continue aspirin and brilinta Delirium has resolved. High intensity statin therapy. We will have PT/OT evaluation. If stable by tomorrow, she can be discharged tomorrow. Attestations Medical Necessity Statement*: Care expected to cross 2 midnights. Coding Level of Care Code Acute Dishwashing Machine Repairer for Param Carpio Diagnoses ST elevation myocardial infarction (STEMI) I21.3 Involved coronary artery: unspecified coronary artery History of [place] (myocardial infarction) I25.2 Coronary artery disease I25.10 Coronary Disease-Associated Artery/Lesion type: [place] artery [place] vs. transplanted heart: [place] heart Associated angina: without angina PAD (peripheral artery disease) I73.9 HTN (hypertension) I10 Hypertension type: essential hypertension Diabetes E11.9
[2021-05-26 16:45] LABS: Glucose Point of Care 147 mg/dL (70-110)
[2021-05-26] MEDS: insulin lispro 100 unit/1 mL SUBCUT (17:59)
[2021-05-26] MEDS: atorvastatin 40 mg Tablet 80 MG PO (19:37)
[2021-05-26] MEDS: amitriptyline 25 mg Tablet PO (19:38)
[2021-05-26 20:31] LABS: Glucose Point of Care 115 mg/dL (70-110)
[2021-05-27] VITALS: BP 133/70; PULSE 77; RESP 25; TEMP 36.7; O2SAT 96
--- NOTE | 2021-05-27 01:20 | PC.NURSE ---
Shift Note Frequent safety and comfort rounds continue. Orders and/or nursing care completed as indicated. Patient monitored for response to intervention and treatment(s). Will continue to monitor.
[2021-05-27 03:40] VITALS: PULSE 64
[2021-05-27 04:00] VITALS: BP 133/73; PULSE 73; RESP 24; TEMP 36.6; O2SAT 94
[2021-05-27] MEDS: levothyroxine 50 mcg Tablet PO (04:47)
[2021-05-27] MEDS: allopurinol 100 mg Tablet PO (04:47)
[2021-05-27] MEDS: pantoprazole DR 40 mg Tablet PO (04:47)
[2021-05-27 06:38] LABS: Glucose Point of Care 127 mg/dL (70-110)
[2021-05-27] MEDS: metoprolol tartrate 25 mg Tablet PO (08:21)
[2021-05-27] MEDS: gabapentin 300 mg Capsule PO (08:21)
[2021-05-27] MEDS: ticagrelor 90 mg Tablet PO (08:21)
[2021-05-27] MEDS: lisinopril 10 mg Tablet PO (08:21)
[2021-05-27] MEDS: aspirin 81 mg EC Tablet PO (08:21)
[2021-05-27] MEDS: gabapentin 100 mg Capsule PO (08:21)
[2021-05-27] MEDS: acetaminophen 325 mg Tablet 650 MG PO (08:23)
[2021-05-27] MEDS: baclofen 10 mg Tablet 5 MG PO (08:23)
[2021-05-27 08:35] VITALS: BP 151/93; PULSE 82; RESP 20; O2SAT 98
--- NOTE | 2021-05-27 09:43 | PM.DCS ---
Discharge Providers Date of Admission: 05/22/21 00:03 Date of Discharge: May 27, 2021 Attending Provider at Admission: Rashaad Jensen M.D Attending Provider at Discharge: Rashaad Jensen M.D Primary Care Provider: Jenniffer Jenkins MD Diagnoses at Discharge Discharge Diagnosis (1) ST elevation myocardial infarction (STEMI): Qualifiers: Involved coronary artery: unspecified coronary artery Qualified Code(s): I21.3 - ST elevation (STEMI) myocardial infarction of unspecified site (2) History of ID (myocardial infarction): (3) Coronary artery disease: Status: Acute Qualifiers: Associated angina: without angina Coronary Disease-Associated Artery/Lesion type: rincon artery [place] vs. transplanted heart: rincon heart Qualified Code(s): I25.10 - Atherosclerotic heart disease of rincon coronary artery without angina pectoris (4) PAD (peripheral artery disease): Status: Acute (5) HTN (hypertension): Status: Acute Qualifiers: Hypertension type: essential hypertension Qualified Code(s): I10 - Essential (primary) hypertension (6) Diabetes: Status: Acute (7) Coronary stent thrombosis: Status: Acute Permanent problem details: Had stent thrombosis x2 during hospitalization with likely mechanism of plavix resistance Reason for Visit Reason for Visit: CP, Left arm and jaw Pain Brief History: 76 year old female with past medical history of coronary artery disease status post RCA stent in 2017, GI bleed, PAD with occluded bypass grafts has presented with 2 hours of severe chest pain. According to patient she started noticing substernal chest pain that radiated to her jaw and left arm. EKG showed inferior leads ST elevations consistent with a STEMI. [facility] was activated at 9:19 PM and I was notified at that time. I immediately came to the ER and assessed patient. She was brought to the [facility] and underwent revascularization of tortuous, calcified RCA vessel with GHISLAINE x3. Hospital Course Hospital Course 76 year old female with past medical history of coronary artery disease status post RCA stent in 2017, GI bleed, PAD with occluded bypass grafts has presented with 2 hours of severe chest pain. According to patient she started noticing substernal chest pain that radiated to her jaw and left arm. EKG showed inferior leads ST elevations consistent with a STEMI. [facility] [employer] was activated at 9:19 PM and I was notified at that time. I immediately came to the ER and assessed patient. She was brought to the [facility] and underwent revascularization of tortuous, calcified RCA vessel with GHISLAINE x3. She had an guide catheter dissection of the proximal RCA( which was covered with stents). Her post PCI echocardiogram showed normal LV systolic function. Patient had a complicated hospital stay. On subsequent day of her initial presentation, she developed stent thrombosis and underwent balloon angioplasty and PCI of distal RCA that was a residual stenosis. The following day she had a second episode of stent thrombosis. She again underwent balloon angioplasty. On this occasion we performed IVUS that showed well-expanded stents and no residual stenosis. Likely mechanism of recurrent stent thrombosis was Plavix resistance. Patient was put on Brilinta. During rest of her hospitalization, no more chest pains or EKG changes were noted. She was discharged home in a stable condition on dual antiplatelets therapy with aspirin and Brilinta. She will follow up with cardiology as an outpatient. Physical Exam Narrative: EXAM NARRATIVE: GENERAL: Patient is alert, awake and oriented x3. [] NECK: No jugular vein distension. [] HEENT: No cyanosis. No icterus. No pallor. [] HEART: Regular S1 and S2. No murmur, rub or gallop. [] LUNGS: Clear to auscultate bilaterally. [] ABDOMEN: Soft, nontender and nondistended. Positive bowel sounds. No guarding, rebound or tenderness. [] CENTRAL NERVOUS SYSTEM: Grossly nonfocal. [] EXTREMITIES: Lower extremities with 1+ edema bilaterally. Pulses palpable in the lower extremities, both dorsalis pedis and posterior tibial. [] Discharge Data Data Completed and Pending: Completed Studies During Hospitalization Category Date Time Status CV. 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 Routin e Exams 05/22/21 21:41 Taken [employer] M[employer]INE [employer]TER request for service Stat Exams 05/23/21 16:44 Taken Labs from last 24 hours 05/27/21 05/26/21 05/26/21 06:35 20:14 16:43 POC Glucose 127 H 115 H 147 H 05/26/21 11:04 POC Glucose 117 H Vitals: Last Vital Signs Temp 98 F 05/27/21 04:00 Pulse 82 05/27/21 08:35 Resp 20 H 05/27/21 08:35 BP 151/93 05/27/21 08:35 Pulse Ox 98 05/27/21 08:35 Discharge Plan Discharge Patient Disposition: Home Condition: Stable Prescriptions: New aspirin 81 mg Tablet,Delayed Release (Dr/Ec) 81 mg PO DAILY Qty: 90 RF: 3 atorvastatin 40 mg Tablet 80 mg PO BEDTIME Qty: 90 RF: 3 metoprolol tartrate 25 mg Tablet 25 mg PO BID@0900,2100 Qty: 120 RF: 3 Brilinta 90 mg Tablet 90 mg PO BID Qty: 180 RF: 3 Continued acetaminophen [Tylenol Arthritis Pain] 650 mg tablet extended release 1,300 mg PO Q12H PRN (Reason: Pain) RF: 0 Jardiance 25 mg tablet 25 mg PO DAILY RF: 0 pantoprazole 40 mg tablet,delayed release (DR/EC) 40 mg PO QAM RF: 0 allopurinol 100 mg tablet 100 mg PO QAM RF: 0 amitriptyline 25 mg tablet 25 mg PO BEDTIME RF: 0 nitroglycerin [Nitrostat] 0.4 mg tablet, sublingual 0.4 mg sublingual Q5M PRN (Reason: chest pain) Qty: 25 RF: 4 Lantus Solostar U-100 Insulin 100 unit/mL (3 mL) insulin pen 25 unit SUBCUT QAM RF: 0 glipizide 5 mg tablet extended release 24hr 5 mg PO QAM RF: 0 albuterol sulfate [ProAir HFA] 90 mcg/actuation Hfa Aerosol Inhaler 2 puff INHALATION Q4H PRN (Reason: Shortness Of Breath) RF: 0 lisinopril 20 mg tablet See Rx Instructions .ROUTE .COMPLEX RF: 0 ondansetron 4 mg tablet,disintegrating 4 mg PO Q6H PRN (Reason: nausea and vomiting) Qty: 14 RF: 0 levothyroxine 50 mcg tablet 50 mcg PO QAM RF: 0 gabapentin 300 mg capsule 300 mg PO TID RF: 0 metformin 500 mg tablet extended release 24 hr 500 mg PO QAM RF: 0 Symbicort 80-4.5 mcg/actuation HFA aerosol inhaler 1 puff INHALATION BID RF: 0 baclofen 5 mg tablet 5 mg PO TID PRN (Reason: Muscle Pain) RF: 0 Discontinued simvastatin 20 mg tablet 20 mg PO BEDTIME RF: 0 Discharge Orders: Discharge Order (Routine); Ordered 05/27/21 Ordered By: Rashaad Jensen Referrals: Clay Carvajal MD [Physician] - 08/07/21 2:00 pm (Please follow-up with Dr. Carvajal on at 2:00P.M. If you have any questionsor need to reschedule. Please call ) Patty You FNP [Nurse Practitioner] - 06/05/21 1:45 pm (Please follow-up with Patty You on at 1:45P.M. Your appointment with Dr. Carvajal on has been cancelled. If you have any questions or need to reschedule. Please call ) Discharge Diet: Diabetic Discharge Activity: Increase activity as tolerated Patient Instructions: Ticagrelor (By mouth) (Brilinta), Chest Pain Stoplight, Post Angiogram Home Care Instructions, Post Heart Attack Stoplight Activity Restrictions/Additional Instructions: Please do not lift more than 5 pounds of weight for next 5 days Discharge Attestations Time Spent in Discharge Care*: greater than 30 min Quality Metrics Clinical Quality Measures During this hospital stay, did patient experience: AMI Clinical Trial Participant: No Contraindication to aspirin (AMI): Aspirin given Contraindication to statin: Statin prescribed Coding Level of Care Code Acute g FW NM note Diagnoses ST elevation myocardial infarction (STEMI) I21.3 Involved coronary artery: unspecified coronary artery History of ID (myocardial infarction) I25.2 Coronary artery disease I25.10 Associated angina: without angina Coronary Disease-Associated Artery/Lesion type: rincon artery [place] vs. transplanted heart: rincon heart PAD (peripheral artery disease) I73.9 HTN (hypertension) I10 Hypertension type: essential hypertension Diabetes E11.9 Coronary stent thrombosis T82.867A
[2021-05-27 09:59] VITALS: BP 142/73; PULSE 82; RESP 19; TEMP 36.8; O2SAT 99
--- NOTE | 2021-05-27 10:01 | PC.SOCIAL ---
IMM Update Pg. 2 of IMM updated and reviewed with patient, who verbalized understanding. Copy provided.
== END 2021-05-27 10:20 | disposition home or self-care (01) | DRG 246 ==
LOC: ER 21:19 → CCL 21:37 → ICU 05-22 → CSU 05-25 16:47
PROVIDERS: Internal Medicine; Internal Medicine Cardiovascular Disease; Admitting Provider Internal Medicine; Emergency Provider Emergency Medicine; PCP Internal Medicine; Visit Provider Internal Medicine
PROC: 027036Z Dilation of Coronary Artery, One Artery with Three Drug-eluting Intraluminal Devices, Percutaneous Approach (ICD-10-PCS; principal; 2021-05-21 21:45)
PROC: 027036Z Dilation of Coronary Artery, One Artery with Three Drug-eluting Intraluminal Devices, Percutaneous Approach (ICD-10-PCS; 2021-05-21 21:45)
PROC: 027034Z Dilation of Coronary Artery, One Artery with Drug-eluting Intraluminal Device, Percutaneous Approach (ICD-10-PCS; principal; 2021-05-22 21:30)
PROC: 02703ZZ Dilation of Coronary Artery, One Artery, Percutaneous Approach (ICD-10-PCS; principal; 2021-05-23 17:00)
DX: I21.11 ST elevation (STEMI) myocardial infarction involving right coronary artery (principal); T82.855A Stenosis of coronary artery stent, initial encounter; F23 Brief psychotic disorder; I25.10 Atherosclerotic heart disease of native coronary artery without angina pectoris; Y71.1 Therapeutic (nonsurgical) and rehabilitative cardiovascular devices associated with adverse incidents; I25.2 Old myocardial infarction; I10 Essential (primary) hypertension; E11.51 Type 2 diabetes mellitus with diabetic peripheral angiopathy without gangrene; Z98.890 Other specified postprocedural states; Z87.891 Personal history of nicotine dependence; Z79.4 Long term (current) use of insulin; Z79.84 Long term (current) use of oral hypoglycemic drugs; E86.0 Dehydration
CPT/HCPCS: 36415; 36416; 36600; 80048; 80051; 80053; 80069; 81001; 82140; 82330; 82805; 82962; 83605; 83735; 84145; 84443; 84484; 85025; 85347; 85730; 87086; 92920; 92978; 93005; 93306; 93454; 96372; 96374; 96375; 97161; 99285; A4570; C1725; C1753; C1769; C1874; C1887; C1894; C9600; J1644; J1815; J2250; J2270; J2405; J3010; J3246; J3486; J3490; J7030; J7050; Q9967

== ENCOUNTER 2021-11-28 09:15 | Outpatient (CLI) | payer MEDICARE, SELFPAY ==
--- NOTE | 2021-11-28 | US_ITS ---
WS: [id number] RIGHT UPPER QUADRANT ULTRASOUND HISTORY: ELEVATED LFT'S COMPARISON: None available. Liver: 13.3 cm in length. Normal size liver. No bile duct dilatation or mass. Portal Vein: Normal hepatopetal flow with monophasic waveform. Gallbladder: Status post cholecystectomy. CBD: 0.5 cm Pancreas: Normal size and echogenicity. Right kidney: 9.8 cm in length. Normal size and echogenicity. No hydronephrosis or mass. Aorta and IVC: Unremarkable abdominal aorta and IVC. No ascites. US/US abdomen limited [id number] IMPRESSION: Status post cholecystectomy. Otherwise normal RIGHT upper quadrant ultrasound.
--- NOTE | 2021-11-28 09:41 | MM_ITS ---
WS: [id number] BILATERAL SCREENING DIGITAL BREAST TOMOSYNTHESIS MAMMOGRAM WITH CAD HISTORY: SCREENING COMPARISON: 03/30/2019, 05/22/2020 and 11/26/2016 Bilateral CC and MLO views with tomosynthesis and synthetic mammography submitted. Computer aided det ection analyzed. Breast composition: There are scattered areas of fibroglandular density. No suspicious masses, microc alcifications or architectural distortion. RIGHT nipple inversion is stable. MM/[place] [id number] IMPRESSION: BI-RADS: 2-Benign FOLLOW UP: 1 Year Follow-up
== END 2021-11-28 09:16 | disposition home or self-care (01) ==
PROVIDERS: PCP Internal Medicine; Visit Provider Internal Medicine
DX: Z12.31 Encounter for screening mammogram for malignant neoplasm of breast (principal); R74.8 Abnormal levels of other serum enzymes; Z90.49 Acquired absence of other specified parts of digestive tract
CPT/HCPCS: 76705; 77063; 77067

== ENCOUNTER → 2022-03-04 15:16 | Outpatient (BNVA) | payer MEDICARE, SELFPAY | PROVIDERS: PCP Internal Medicine; Visit Provider Internal Medicine | DX: I25.10 Atherosclerotic heart disease of native coronary artery without angina pectoris (principal); I73.9 Peripheral vascular disease, unspecified; I10 Essential (primary) hypertension; Z87.891 Personal history of nicotine dependence | CPT/HCPCS: 99214 ==

== ENCOUNTER 2022-09-24 12:36 | Outpatient (CLI) | payer OTHER, SELFPAY ==
--- NOTE | 2022-09-24 12:53 | USCV_ITS ---
Capri Tobar Age: 77 Gender: F : 1945 Exam Date: 09/24/2022 13:05 Ordering Phys: Rashaad Jensen M.D ([email or web address]) Technologist: DORIS Exam Location: [facility] [place] Indication: SOB BP: / HR: 77 Rhythm: Sinus Technical Quality: Adequate MEASUREMENTS (Male / Female) Normal Values 2D ECHO LV Diastolic Diameter PLAX 4.0 cm 4.2 - 5.9 / 3.9 - 5.3 cm LV Systolic Diameter PLAX 3.0 cm LV Chamber Size 3.2 cm IVS Diastolic Thickness 1.2 cm 0.6 - 1.0 / 0.6 - 0.9 cm IVS Systolic Thickness 1.3 cm LVPW Diastolic Thickness 1.2 cm 0.6 - 1.0 / 0.6 - 0.9 cm LVPW Systolic Thickness 1.7 cm RV Chamber Size 3.0 cm LVOT Diameter 2.0 cm LV Ejection Fraction 2D Teich 49.0 % LV Ejection Fraction MOD 2C 33.1 % LV Ejection Fraction 2C AL 29.3 % LA Diameter 2.4 cm LA Width 3.3 cm LA Height 3.2 cm RA Width 2.3 cm RA Height 3.4 cm Aorta at Sinotubular Diameter 2.9 cm IVC Diameter 1.1 cm M-MODE Aortic Annulus Diameter 3.1 cm LA Ao Ratio MM 0.9 MV E Point Septal Separation 0.4 cm DOPPLER AV Peak Velocity 151.0 cm/s LVOT Peak Velocity 93.0 cm/s AV Area Cont Eq vti 2.4 cm squared AV Area Cont Eq pk 2.0 cm squared MV Area PHT 5.0 cm squared Mitral E to A Ratio 0.6 MV E' Velocity 39.0 cm/s Mitral E to MV E' Ratio 7.9 Mitral E to LV E' Lateral Ratio 7.5 Mitral E to LV E' Septal Ratio 8.4 TR Peak Velocity 350.9 cm/s TR Peak Gradient 49.3 mmHg TR Mean Velocity 270.6 cm/s TR Mean Gradient 33.7 mmHg TR Velocity Time Integral 98.9 cm TV Peak E Velocity 71.0 cm/s Right Atrial Pressure 3.0 mmHg Pulmonary Artery Systolic Pressu 52.3 mmHg RV Acceleration Time 0.2 s RV Ejection Time 0.3 s RV AcT/ET 0.7 FINDINGS Left Ventricle Normal left ventricular size, systolic function and wall thickness, with no regional wall motion abnormalities. Grade I/IV diastolic dysfunction (abnormal relaxation filling pattern), normal to mildly elevated filling pressures. Left ventricular ejection fraction is estimated at 60 %. Right Ventricle Normal right ventricular size and systolic function. Moderate pulmonary hypertension, RVSP 52.3 mmHg. Right Atrium The right atrium is normal in size. Left Atrium The left atrium is normal in size. Mitral Valve Structurally normal mitral valve. Mild mitral valve regurgitation. Aortic Valve Structurally normal aortic valve without significant sclerosis or stenosis. There is no aortic regurgitation. Tricuspid Valve Structurally normal tricuspid valve without significant stenosis or regurgitation. Pulmonary artery systolic pressure is normal. Pulmonic Valve Pulmonic valve not well visualized. Pericardium Normal pericardium without effusion. Aorta Normal ascending aorta dimension. IVC Inferior vena cava not visualized. CONCLUSIONS Normal left ventricular size, systolic function and wall thickness, with no regional wall motion abnormalities. Grade I/IV diastolic dysfunction (abnormal relaxation filling pattern), normal to mildly elevated filling pressures. Left ventricular ejection fraction is estimated at 60 %. Normal right ventricular size and systolic function. Moderate pulmonary hypertension, RVSP 52.3 mmHg. Structurally normal mitral valve. Mild mitral valve regurgitation. The previous echo was done 05/24/2021. Wall motion disturbances noted on the previous echo are not evident today. Dr. Jacob Da Silva MD (Electronically Signed) Final Date: 24 September 2022 19:00 S
== END 2022-09-24 12:37 | disposition home or self-care (01) ==
PROVIDERS: PCP Internal Medicine; Visit Provider Internal Medicine
DX: R06.02 Shortness of breath (principal); I34.0 Nonrheumatic mitral (valve) insufficiency; I27.20 Pulmonary hypertension, unspecified
CPT/HCPCS: 93306

== ENCOUNTER 2022-10-07 10:19 | Outpatient (CLI) | payer OTHER, MEDICAID, SELFPAY ==
--- NOTE | 2022-10-07 10:15 | USR_ITS ---
PROCEDURE INFORMATION: Exam: US Duplex Lower Extremity Arteries Exam date and time: 10/07/2022 10:53 AM Age: 77 years old Clinical indication: Pain; Leg, upper; Bilateral; Prior surgery; Surgery date: 6+ months; Additional info: Leg pain TECHNIQUE: Imaging protocol: Real-time ultrasound scan of the arteries of the bilateral lower extremities with 2-D mckenzie scale, color Doppler flow and spectral waveform analysis. Images documented and saved. COMPARISON: MR knee RT wo con* [id number] 04/15/2017 3:59 PM FINDINGS: Right common femoral artery: Color blood flow is demonstrated in the artery. Biphasic waveforms reflecting a degree of stenosis. Right superficial femoral artery: Color blood flow is demonstrated in the artery. Biphasic waveforms reflecting a degree of stenosis. Right popliteal artery: Color blood flow is demonstrated in the artery. Right popliteal artery biphasic waveform suggesting a degree of stenosis. Right calf/foot arteries: Right dorsalis pedis artery lack of color blood flow. Left common femoral artery: Color blood flow is demonstrated in the artery. Monophasic waveform is seen reflecting a degree of stenosis. Left superficial femoral artery: Color blood flow is demonstrated in the artery. Monophasic waveform is seen reflecting a degree of stenosis. Left popliteal artery: Color blood flow is demonstrated in the artery. Monophasic waveform is seen artery. Left calf/foot arteries: Minimal color blood flow is demonstrated in the artery. Left dorsalis pedis monophasic waveforms reflecting a degree of stenosis Other findings: Femoral femoral bypass graft appears occluded. US/CV arterial duplex [facility] [id number] IMPRESSION: 1. Right femoral femoral bypass graft appears occluded. 2. Biphasic waveforms seen in the right common femoral artery, superficial femoral artery, popliteal artery and left popliteal artery reflecting a degree of stenosis. 3. Right dorsalis pedis artery lack of color blood flow. 4. Monophasic waveforms seen in the left common femoral artery, superficial femoral artery and dorsalis pedis artery reflecting a degree of stenosis.
== END 2022-10-07 10:20 | disposition home or self-care (01) ==
PROVIDERS: PCP Internal Medicine; Visit Provider Internal Medicine
DX: I73.9 Peripheral vascular disease, unspecified (principal); M79.604 Pain in right leg; M79.605 Pain in left leg
CPT/HCPCS: 93925

== ENCOUNTER 2022-10-20 13:41 | Inpatient (IN) | payer MEDICARE, MEDICAID, SELFPAY ==
[2022-10-20] VITALS (23 sets, daily range): BP systolic 79–143; BP diastolic 44–82; PULSE 68–92; RESP 13–28; TEMP 35.8–36.8; O2SAT 88–97; BMI 29.4; BMI 29.9
--- NOTE | 2022-10-20 13:56 | PC.NURSE ---
pt reports she had a stent placed a year ago
--- NOTE | 2022-10-20 14:02 | ECG_ITS ---
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 Measurements Intervals [place] Rate: 87 P: 146 [place]: 180 QRS: -23 QRSD: 91 T: -31 QT: 339 QTc: 408 Interpretive Statements SINUS RHYTHM INFERIOR MYOCARDIAL INFARCTION , OF INDETERMINATE AGE [40+ ms Q WAVE AND/OR ST/T ABNORMALITY IN II/aVF] Compared to ECG 05/23/2021 21:30:16 No significant changes Electronically Signed On 10-20-2022 17:27:31 CDT by Rashaad Jensen M.D. [email or web address]
--- NOTE | 2022-10-20 14:06 | CT_ITS ---
WS: [id number] CT HEAD NONCONTRAST HISTORY: dizziness, hypotension, vision changes TECHNIQUE: Contiguous axial imaging performed through the brain in 2.5 mm imaging. Bone and soft tiss ue windows. Sagittal and coronal reformats reviewed. All CT scans at [facility] use at least one of these dose optimization techniques: automated exposure control; mA and/or kV adjustment per pa tient size (includes targeted exams where dose is matched to clinical indication); or iterative recon struction. DLP: 1077.48 mGy.cm COMPARISON: 09/28/2008 No acute intracranial hemorrhage, midline shift or mass effect. Mild atrophy, no prior infarcts or herniation. Ventricles: Normal size with no hydrocephalus. Paranasal sinuses: As visualized are clear. Mastoid air cells: Well pneumatized. Calvarium and scalp: Skull is intact with no soft tissue edema or swelling. Scattered atherosclerotic plaque in the distal vertebral arteries with more moderate plaque through t he cavernous carotid arteries. CT/CT head wo con* [id number] IMPRESSION: No acute intracranial hemorrhage or edema. Stable noncontrast head CT.
--- NOTE | 2022-10-20 14:06 | XRR_ITS ---
PROCEDURE INFORMATION: Exam: XR Chest Exam date and time: 10/20/2022 2:14 PM Age: 77 years old Clinical indication: Other: Hypotension TECHNIQUE: Imaging protocol: Radiologic exam of the chest. Views: 1 view. COMPARISON: CR XR chest 1V portable [id number] 05/05/2021 5:14 PM FINDINGS: Lungs: Unremarkable. No consolidation. Pleural spaces: Unremarkable. No pleural effusion. No pneumothorax. Heart/Mediastinum: Unremarkable. No cardiomegaly. Bones/joints: Unremarkable for age. XR/XR chest 1V portable [id number] IMPRESSION: Negative chest exam.
[2022-10-20] MEDS: sodium chloride 0.9% 1,000 ML 999 ML IV ×2 (14:09→14:53)
--- NOTE | 2022-10-20 14:10 | ED_ITS ---
HPI - Dizziness General: Chief Complaint: Dizziness Stated Complaint: Slipped on the floor at [facility] a feeling dizzy Time Seen by Provider: 10/20/22 13:57 History of Present Illness: HPI Narrative: Patient presents to the ER with complaints of dizziness, fall, syncope, tunnel vision and feels bad. Patient has had decreased fluid intake over the last several days, but denies chest pain or dyspnea. Patient did not take her blood pressure medicine this morning. Patient is hypotensive in triage with a blood pressure of's in the 70s MD elicited complaint: dizziness and lightheadedness Pertinent past history: other (4 cardiac stents approximately 1 year ago) Onset (ago): day(s) Timing: gradual onset Severity: moderate Description: off-balance and other (Syncope tunnel vision) History of similar symptoms: Yes (But not this bad) Exacerbating factors: movement/ambulation and change in body position Relieving factors: remaining still Associated symptoms: Reports syncope; Denies chest pain, chills, headache(s), nausea, palpitations or vomiting Associated neuro symptoms: Deny numbness in extremities Review of Systems General: Reports: 10 or more systems reviewed and unremarkable except in HPI and below Const: Denies: fever(s) or chills Eyes: Reports: change in vision ENMT: Denies: throat pain or odynophagia Card: Reports: syncope; Denies: chest pain or palpitations Resp: Denies: dyspnea, productive cough or non-productive cough GI: Denies: abdominal pain, nausea or vomiting : Denies: flank pain or difficulty voiding Musc: Reports: muscle weakness; Denies: neck pain or back pain Skin/Breast: Denies: rash Neuro: Denies: headache(s) or numbness in extremities Psych: Denies: anxiety or depression Endo: Denies: polyuria, polydipsia or tired all the time PFSH ED PFSH: Medical History Coronary artery disease History of MN (myocardial infarction) HTN (hypertension) PAD (peripheral artery disease) ST elevation myocardial infarction (STEMI) Surgical History H/O section H/O esophagogastroduodenoscopy (12/19/20) Gastric erosions History of cholecystectomy S/P appendectomy S/P breast biopsy S/P femoral-popliteal bypass surgery S/P PTCA (percutaneous transluminal coronary angioplasty) Status post colonoscopy (12/19/20) Extensive diverticulosis Family History Other CAD (coronary artery disease) Cancer Diabetes Hypertension Stroke Social History Smoking and tobacco status: former smoker Quit status (tobacco): has quit using tobacco Year quit tobacco: 2016 Alcohol intake: never Physical Exam Const: COMMON NORMALS: no acute distress, average body habitus, patient oriented x3, no limitations, healthy appearing, alert and well nourished HENMT: COMMON NORMALS: normocephalic, atraumatic, hearing grossly normal bilaterally, external ears normal, Normal external nose present and moist oral mucous membranes HEAD & SCALP: normocephalic and atraumatic NOSE: Normal external nose present EXTERNAL EAR: Yes external ears normal Eye: COMMON NORMALS: Equal, round and reactive pupils present, EOMs intact bilaterally, conjunctivae normal and no scleral icterus CONJUNCTIVA: Yes conjunctivae normal PUPIL: Yes Equal, round and reactive pupils present Neck/C-Spine: COMMON NORMALS: full ROM, no lymphadenopathy, supple, no meningeal signs, no JVD and Thyroid normal THYROID: Thyroid normal Lymph: LYMPHATIC: no lymphadenopathy noted Chest: COMMONS NORMALS: normal inspection of the chest and normal palpation of entire chest wall Resp: COMMON NORMALS: normal respiratory effort, No retractions, No use of accessory muscles and clear to auscultation bilaterally AUSCULTATION: clear to auscultation bilaterally Cardio: COMMON NORMALS: no JVD, regular rate, regular rhythm, S1 normal heart sound present, S2 normal heart sound present, No gallops present (Cardio), No clicks present (Cardio) and No murmurs present (Cardio) RATE: regular rate RHYTHM: regular rhythm HEART SOUNDS: S1 normal heart sound present and S2 normal heart sound present GI: COMMON NORMALS: Normal to inspection, nondistended, normoactive bowel sounds present, Soft to palpation, non-tender, No hepatosplenomegaly present and no masses PALPATION: Yes Soft to palpation and Yes No hepatosplenomegaly present : COMMON NORMALS: Yes no CVA tenderness BLADDER/KIDNEY EXAM: Yes no CVA tenderness Back/Pelvis: COMMON NORMALS: no CVA tenderness Extremity: COMMON NORMALS: normal to inspection Neuro: COMMON NORMALS: patient oriented x3, CN's II-XII intact bilaterally, moves all extremities, no focal motor deficits and no sensory deficits noted SENSORIUM/ORIENTATION: Yes alert MENINGEAL SIGNS: Yes no meningeal signs Psych: COMMON NORMALS: mental status grossly normal, Normal thought process present, cooperative, normal affect, speech normal and activity/motor behavior normal SPEECH: Yes normal speech THOUGHT PROCESS: Normal thought process present Course Vital Signs: Vital signs: Vital Signs Temperature 96.4 F L 10/20/22 13:49 Pulse Rate 79 10/20/22 18:15 Respiratory Rate 15 10/20/22 18:15 Blood Pressure 127/58 10/20/22 18:15 Pulse Oximetry 94 10/20/22 17:30 Oxygen Delivery Me thod 10/20/22 20:06 MDM - Dizziness Medical Decision Making Patient presents to the ER with complaints of dizziness, tunnel vision, orthostatic hypotension over the last couple days. Patient did not take her blood pressure today and she is still hypotensive. Patient's blood pressure in triage was approximately 70/40 and she was symptomatic. Patient was evaluated physical exam was performed and the lab work was obtained. Lab work showed a white count of 11.9, creatinine of 2.0, and UA showed signs of urinary tract infection. Patient was bolused a total of 2 L normal saline which helped her pressure increased to proximately 104/60. Dr. Bates was consulted for possible admission. He requested lactic acid, Zosyn, CT of the abdomen pelvis, as well as keep her here for little bit longer to see if her blood pressure stabilizes while not receiving any more fluid. If pressure stabilizes she may go to the floor, however if she becomes more symptomatically hypotensive and requires a pressor she may need to go to the ICU. Patient's blood pressures ramirez ve been stable and actually improving since talking to Dr. Samuel, new pressure is 127/70 therefore patient will be admitted to the floor. Differential Diagnosis Likely orthostatic hypotension; Unlikely vertebral basilar insufficiency, cerebrovascular accident, acute vestibular neuronitis or transient cerebral ischemia Medical Records I reviewed the patient's medical records. Lab Data I reviewed the patient's lab results. 10/20/22 14:00 10/20/22 14:00 Radiology Impressions Chest X-Ray 10/20/22 14:06 IMPRESSION: Negative chest exam. Head CT 10/20/22 14:06 IMPRESSION: No acute intracranial hemorrhage or edema. Stable noncontrast head CT. Abdomen/Pelvis CT 10/20/22 16:48 IMPRESSION: 1. No acute findings within the abdomen or pelvis. 2. Unremarkable CT exam of the kidneys ureters and bladder. 3. Small amount of unexplained air within the endometrial cavity. Recommend follow-up nonemergent pelvic ultrasound for further assessment. 4. 3 cm right ovarian cyst increased in size which in view of patient's age should also be further assessed on follow-up pelvic ultrasound. 5. Colonic diverticulosis. No evidence of acute diverticulitis. 6. Additional chronic findings as above. Laboratory Results WBC 11.9 10^3/uL (4.0-10.0) H 10/20/22 14:00 RBC 5.13 10^6/uL (4.1-5.3) 10/20/22 14:00 Hgb 13.5 g/dL (11.5-15.3) 10/20/22 14:00 Hct 44.0 % (37.0-47.0) 10/20/22 14:00 MCV 85.8 fl (81-99) 10/20/22 14:00 MCH 26.3 pg (28.0-34.0) L 10/20/22 14:00 MCHC 30.7 g/dL (30.0-36.0) 10/20/22 14:00 RDW 19.6 % (12.1-15.1) H 10/20/22 14:00 Plt Count 243 10^3/cmm (130-400) 10/20/22 14:00 MPV 10.5 fL (7.4-10.4) H 10/20/22 14:00 Neut % (Auto) 79.2 % 10/20/22 14:00 Lymph % (Auto) 13.2 % 10/20/22 14:00 Harmon % (Auto) 5.9 % 10/20/22 14:00 Eos % (Auto) 1.0 % 10/20/22 14:00 Baso % (Auto) 0.4 % 10/20/22 14:00 Neut # (Auto) 9.45 10^3/uL (1.8-7.7) H 10/20/22 14:00 Lymph # (Auto) 1.6 10^3/uL (0.8-4.8) 10/20/22 14:00 Harmon # (Auto) 0.7 10^3/uL (0.2-0.9) 10/20/22 14:00 Eos # (Auto) 0.1 10^3/uL (0.0-0.8) 10/20/22 14:00 Baso # (Auto) 0.1 10^3/uL (0.0-0.1) 10/20/22 14:00 Nucleated RBC % (auto) 0 % 10/20/22 14:00 Nucleated RBCs # 0.0 /100WBC 10/20/22 14:00 Sodium 139 mmol/L (136-145) 10/20/22 14:00 Potassium 4.7 mmol/L (3.5-5.1) 10/20/22 14:00 Chloride 105 mmol/L (98-107) 10/20/22 14:00 Carbon Dioxide 17 mmol/L (22-29) L 10/20/22 14:00 Anion Gap 21.7 (5-19) H 10/20/22 14:00 BUN 45 mg/dL (8-23) H 10/20/22 14:00 Creatinine 2.0 mg/dL (0.5-0.9) H 10/20/22 14:00 GFR Calculation Not Reportable 10/20/22 14:00 Glucose 127 mg/dL (65-115) H 10/20/22 14:00 POC Glucose 96 mg/dL (70-110) 10/20/22 14:09 Calculated Osmolality 301 mOsm/kg (285-295) H 10/20/22 14:00 Lactic Acid 1.0 mmol/L (0.5-2.2) 10/20/22 16:58 Calcium 9.1 mg/dL (8.5-10.5) 10/20/22 14:00 Magnesium 2.0 mg/dL (1.7-2.3) 10/20/22 14:00 Total Bilirubin 0.8 mg/dL (0.15-1.2) 10/20/22 14:00 AST 69 U/L (0-32) H 10/20/22 14:00 ALT 50 U/L (0-33) H 10/20/22 14:00 Alkaline Phosphatase 129 U/L (35-105) H 10/20/22 14:00 Creatine Kinase 83 U/L (26-192) 10/20/22 14:00 Troponin T Baseline 19 ng/L (0-10) H 10/20/22 14:00 Troponin T 120 Minute 14.26 ng/L (0-10) H 10/20/22 16:00 Delta Troponin T -4.74 ABS# (0-10) L 10/20/22 16:00 Total Protein 7.8 g/dL (6.6-8.7) 10/20/22 14:00 Albumin 3.7 g/dL (3.5-5.2) 10/20/22 14:00 Globulin 4.1 g/dL (1.3-4.6) 10/20/22 14:00 Procalcitonin 0.09 ng/mL (0-0.5) 10/20/22 16:58 TSH 2.08 uIU/mL (0.27-4.20) 10/20/22 14:00 TSH Cancelled 10/20/22 14:00 Urine Color Yellow (Yellow) 10/20/22 15:42 Urine Appearance Cloudy (CLEAR) A 10/20/22 15:42 Urine pH 5 (5-7) 10/20/22 15:42 Ur Specific [place] 1.025 (1.005-1.030) 10/20/22 15:42 Urine Protein Trace (Negative) 10/20/22 15:42 Urine Glucose (UA) 2+ (Normal) H 10/20/22 15:42 Urine Ketones 1+ (Negative) H 10/20/22 15:42 Urine Blood Neg (Negative) 10/20/22 15:42 Urine Nitrate Negative (Negative) 10/20/22 15:42 Urine Bilirubin 1+ (Negative) H 10/20/22 15:42 Urine Urobilinogen 1 mg/dL (Negative) H 10/20/22 15:42 Ur Leukocyte Esterase 2+ (Negative) H 10/20/22 15:42 Urine RBC 15-25 /hpf (0-2) H 10/20/22 15:42 Urine WBC 15-25 /hpf (0-5) H 10/20/22 15:42 Ur Squamous Epith Cells 5-10 /hpf (0-5) H 10/20/22 15:42 Amorphous Sediment Not Reportable 10/20/22 15:42 Urine Bacteria 3+ /hpf (NONE) H 10/20/22 15:42 Urine Yeast 3+ /hpf H 10/20/22 15:42 HIV 1&2 Ab & HIV 1 Ag Non-reactive (Non-Reactiv) 10/20/22 14:00 HIV 1&2 Antibody Non-reactive (Non-Reactiv) 10/20/22 14:00 EKG Data EKG 1: I personally reviewed and interpreted this EKG as follows: EKG interpretation date: 10/20/22 EKG interpretation time: 14:02 Prior EKG tracings: not available for review Interpretation: EKG showed normal sinus rhythm ventricular rate 87 bpm, NM interval 180, QRS duration 91, QTc 383, inferior myocardial infarction of indeterminate age Q waves and rest RT T wave abnormalities in lead II and aVF EKG 2: I personally reviewed and interpreted this EKG as follows: EKG interpretation date: 10/20/22 EKG interpretation time: 16:31 Interpretation: EKG showed normal sinus rhythm at 77 bpm, NM interval of 168, QRS duration of 100, QTc of 398, inferior myocardial infarction of indeterminate age with Q waves and/or STs T wave abnormalities in 2 and aVF. Discharge Plan Discharge Patient Disposition: Admitted As Inpatient Admit Provider: Killian Bates Clinical Impression: Urinary tract infection, Acute kidney injury, Acute hypotension Condition: Stable Coding Level of Care Code ED Visitor Services Assistant for Param Carpio
[2022-10-20 14:13] LABS: Glucose Point of Care 96 mg/dL (70-110)
[2022-10-20 14:22] LABS: Basophils # 0.1 10^3/uL (0.0-0.1); Basophils % 0.4 %; Eosinophils # 0.1 10^3/uL (0.0-0.8); Hemoglobin 13.5 g/dL (11.5-15.3); Lymphocytes # 1.6 10^3/uL (0.8-4.8); Lymphocytes % 13.2 %; Mean Corpuscular HGB Conc 30.7 g/dL (30.0-36.0); Mean Corpuscular Hemoglobin 26.3 pg (28.0-34.0); Mean Corpuscular Volume 85.8 fl (81-99); Mean Platelet Volume 10.5 fL (7.4-10.4); Monocytes # 0.7 10^3/uL (0.2-0.9); Monocytes % 5.9 %; Neutrophils # 9.45 10^3/uL (1.8-7.7); Neutrophils % 79.2 %; Nucleated Red Blood Cells % 0 %; Platelet Count 243 10^3/cmm (130-400); Red Blood Count 5.13 10^6/uL (4.1-5.3); Red Cell Distribution Width 19.6 % (12.1-15.1); White Blood Count 11.9 10^3/uL (4.0-10.0)
[2022-10-20 14:48] LABS: Troponin(5th) Baseline 19 ng/L (0-10)
[2022-10-20 14:57] LABS: Alanine Aminotransferase 50 U/L (0-33); Albumin Level 3.7 g/dL (3.5-5.2); Alkaline Phosphatase 129 U/L (35-105); Anion Gap 21.7 (5-19); Aspartate Amino Transferase 69 U/L (0-32); Blood Urea Nitrogen 45 mg/dL (8-23); Calcium 9.1 mg/dL (8.5-10.5); Carbon Dioxide 17 mmol/L (22-29); Chloride 105 mmol/L (98-107); Globulin 4.1 g/dL (1.3-4.6); Glucose 127 mg/dL (65-115); Osmolality Calculated 301 mOsm/kg (285-295); Potassium 4.7 mmol/L (3.5-5.1); Sodium 139 mmol/L (136-145); Thyroid Stimulating Hormone 2.08 uIU/mL (0.27-4.20); Total Bilirubin 0.8 mg/dL (0.15-1.2); Total Protein 7.8 g/dL (6.6-8.7)
[2022-10-20 16:29] LABS: Add Urine Microscopic? YES; Bacteria Urine 3+ /hpf; Bilirubin Urine 1+ (Negative); Blood Urine Neg (Negative); Glucose Urine UA 2+ (Normal); Ketones Urine 1+ (Negative); Leukocyte Esterase Urine 2+ (Negative); Nitrate Urine Negative (Negative); Protein Urine Trace (Negative); RBC Urine 15-25 /hpf (0-2); Specific Gravity, Urine 1.025 (1.005-1.030); Urine Appearance Cloudy (CLEAR); Urine Color Yellow (Yellow); Urobilinogen Urine 1 mg/dL (Negative); WBC Urine 15-25 /hpf (0-5); pH Urine 5 (5-7)
[2022-10-20 16:30] LABS: Add Urine Culture? Yes
--- NOTE | 2022-10-20 16:31 | ECG_ITS ---
[facility] Test Date: 2022-10-20 Pat Name: Capri Tobar Department: Room: Gender: Female Pantographer: : 1945 Requested By: Jaron Yeboah Order Number: [id number] Kimmy MD: Rashaad Jensen M.D. Measurements Intervals [place] Rate: 77 P: 76 WV: 168 QRS: -31 QRSD: 100 T: -30 QT: 367 QTc: 416 Interpretive Statements SINUS RHYTHM INFERIOR MYOCARDIAL INFARCTION , OF INDETERMINATE AGE [40+ ms Q WAVE AND/OR ST/T ABNORMALITY IN II/aVF] Compared to ECG 10/20/2022 14:02:06 No significant changes Electronically Signed On 10-20-2022 17:28:25 CDT by Rashaad Jensen M.D. [email or web address]
[2022-10-20 16:43] LABS: Troponin 5 2HR 14.26 ng/L (0-10)
[2022-10-20 16:44] LABS: Troponin 5 2HR Delta -4.74 ABS# (0-10)
--- NOTE | 2022-10-20 16:48 | CTR_ITS ---
PROCEDURE INFORMATION: Exam: CT Abdomen And Pelvis Without Contrast Exam date and time: 10/20/2022 5:16 PM Age: 77 years old Clinical indication: Other: UTI, sepsis, hematuria; Prior surgery; Surgery date: 6+ months; Surgery type: Gb, TECHNIQUE: Imaging protocol: Computed tomography of the abdomen and pelvis without contrast. Radiation optimization: All CT scans at this facility use at least one of these dose optimization techniques: automated exposure control; mA and/or kV adjustment per patient size (includes targeted exams where dose is matched to clinical indication); or iterative reconstruction. REPORTING DATA: Count of CT and Cardiac NM exams in prior 12 months: This patient has received [address] and 0 known cardiac nuclear medicine studies in the 12 months prior to the current study. COMPARISON: CT angio chest w abd pel w con 05/05/2021 7:21 PM RADIATION DOSE METRICS: Total DLP (mGy-cm): 710.74 FINDINGS: Lungs: Mild interstitial lung changes peripherally at the lung bases, stable. Liver: Normal. No mass. Gallbladder and bile ducts: Gallbladder has been removed. Bile ducts are not appreciably dilated. Pancreas: Unremarkable. Main pancreatic duct is not significantly dilated. Spleen: Normal. No splenomegaly. Adrenal glands: Normal. No mass. Kidneys and ureters: Kidneys are unremarkable. No calculi or hydronephrosis detected. Stomach and bowel: 2 cm diverticulum arising from the duodenal sweep. Multiple diverticuli throughout the large bowel without evidence of acute diverticulitis.Moderate degree of retained stool throughout the large bowel that may reflect some degree of constipation. Appendix: No evidence of appendicitis. Intraperitoneal space: Unremarkable. No free air. No significant fluid collection. Vasculature: Abdominal aorta and iliac vessels are diffusely calcified. There is no aortic aneurysm. Fem-fem bypass graft present but difficult to further assess on this noncontrast study. Lymph nodes: Unremarkable. No enlarged lymph nodes. Urinary bladder: Urinary bladder is unremarkable. Reproductive: 3 cm right ovarian cyst increased in size from previous exam. Small amount of unexplained air within the endometrial cavity otherwise uterus is unremarkable. Bones/joints: Mild scoliosis convex to the patient's left contributing to asymmetric degenerative changes right of midline at L2-L3. Soft tissues: Unremarkable. CT/CT abdomen pelvis wo con [id number] IMPRESSION: 1. No acute findings within the abdomen or pelvis. 2. Unremarkable CT exam of the kidneys ureters and bladder. 3. Small amount of unexplained air within the endometrial cavity. Recommend follow-up nonemergent pelvic ultrasound for further assessment. 4. 3 cm right ovarian cyst increased in size which in view of patient's age should also be further assessed on follow-up pelvic ultrasound. 5. Colonic diverticulosis. No evidence of acute diverticulitis. 6. Additional chronic findings as above.
[2022-10-20] MEDS: piperacillin-tazobactam 3.375 GM in sodium chloride 0.9% (plus) 50 ML IV (16:54)
[2022-10-20 17:45] LABS: Procalcitonin 0.09 ng/mL (0-0.5)
--- NOTE | 2022-10-20 18:14 | USCV_ITS ---
Capri Tobar Age: 77 Gender: F : 1945 Exam Date: 10/20/2022 19:18 Ordering Phys: Killian Bates MD Technologist: CECILE Exam Location: [facility] [place] Indication: syncope, dizziness, fall, tunnel vision, denies CP, admits chronic SOB, history of cardiac stenting 2016 BP: 127 / 58 HR: 87 Rhythm: Sinus Technical Quality: Adequate MEASUREMENTS (Male / Female) Normal Values 2D ECHO LV Diastolic Diameter PLAX 4.3 cm 4.2 - 5.9 / 3.9 - 5.3 cm LV Systolic Diameter PLAX 2.5 cm IVS Diastolic Thickness 1.1 cm 0.6 - 1.0 / 0.6 - 0.9 cm IVS Systolic Thickness 1.2 cm LVPW Diastolic Thickness 1.0 cm 0.6 - 1.0 / 0.6 - 0.9 cm LVPW Systolic Thickness 1.6 cm LVOT Diameter 2.1 cm LV Ejection Fraction 2D Teich 73.5 % LV Ejection Fraction MOD 2C 74.5 % LV Ejection Fraction 2C AL 76.3 % LA Diameter 2.7 cm LA Width 3.0 cm LA Height 4.9 cm RA Width 3.4 cm RA Height 3.6 cm Aorta at Sinotubular Diameter 2.9 cm IVC Diameter 1.7 cm M-MODE Aortic Annulus Diameter 2.9 cm LA Ao Ratio MM 1.0 MV E Point Septal Separation 0.3 cm DOPPLER AV Peak Velocity 150.0 cm/s LVOT Peak Velocity 100.0 cm/s AV Area Cont Eq vti 2.3 cm squared AV Area Cont Eq pk 2.3 cm squared MV Area PHT 3.5 cm squared Mitral E to A Ratio 0.6 MV E' Velocity 50.5 cm/s Mitral E to MV E' Ratio 12.0 Mitral E to LV E' Lateral Ratio 12.8 Mitral E to LV E' Septal Ratio 11.3 TR Peak Velocity 372.3 cm/s TR Peak Gradient 55.4 mmHg TV Peak E Velocity 96.0 cm/s Right Atrial Pressure 5.0 mmHg Pulmonary Artery Systolic Pressu 60.4 mmHg PV Peak Velocity 100.0 cm/s RV Acceleration Time 0.1 s RV Ejection Time 0.3 s RV AcT/ET 0.2 FINDINGS Left Ventricle Normal left ventricular size and systolic function, EF 71 %. Grade I/IV diastolic dysfunction (abnormal relaxation filling pattern), normal to mildly elevated filling pressures. Right Ventricle The right ventricle is normal in size and function. Right Atrium The right atrium is normal in size. Left Atrium Echodensity in the interatrial septum, may suggest lipomatous dystrophy.mildly increased left atrial size. Mitral Valve No gross abnormalities noted Aortic Valve Thickened aortic valve. Tricuspid Valve Trace to mild tricuspid valve regurgitation. Pulmonic Valve Pulmonic valve not well visualized. Pericardium No pericardial effusion. Aorta Normal aortic annulus size. IVC Normal inferior vena cava. CONCLUSIONS Normal left ventricular size and systolic function, EF 71 %. Grade I/IV diastolic dysfunction (abnormal relaxation filling pattern), normal to mildly elevated filling pressures. 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 Thickened aortic valve. Trace to mild tricuspid valve regurgitation. There is no pericardial effusion. There are no intracardiac masses. Compared to the study from 09/24/2022, there may not be significant change Dr Meliton Ballard MD FACC (Electronically Signed) Final Date: 20 October 2022 23:14 S
--- NOTE | 2022-10-20 18:14 | USCV_ITS ---
Capri Tobar Age: 77 Gender: F : 1945 Exam Date: 10/20/2022 18:49 Ordering Phys: Killian Bates MD Technologist: CECILE [place] [facility] [place]: syndope, dizziness, fall, tunnel vision. Long-term smoker, quit 2016. Hx MN, s/p stenting. IDDM x 1 yr. Risk Factors: syndope, dizziness, fall, tunnel vision. Long- term smoker, quit 2016. Hx MN, s/p stenting. IDDM x 1 yr. Previous Vascular Surgery: None Right Brachial BP: 127 / 58 Left Brachial BP: / Right Left Velocity (cm/s) Spectral Plaque Velocity (cm/s) Spectral Plaque Syst/Diast Broadening Syst/Diast Broadening 54.00/ 5.50 None None Prox CCA 92.00 / 10.50 None None 92.60/ 13.20 None Homo Mid CCA 67.50 / 13.70 None Homo 65.70/ 14.50 Min Dangelo Distal CCA 64.90 / 13.70 Min Dangelo 205.10/45.00 Mod Dangelo Prox ICA 81.60 / 26.40 Min Dangelo 151.10/41.40 Mod Homo Mid ICA 94.00 / 24.10 Min Homo 75.20/ 18.80 Min Homo Distal ICA 85.00 / 24.90 Min Homo 153.80 Min Homo ECA 305.00 Marked Homo 2.21 ICA/CCA 1.02 Antegrade Vertebral Antegrade 33.30/ 12.00 cm/s 65.70/ 10.50 cm/s Tri Subclavian Tri 122.3 93.30 0 FINDINGS Comparison:. 08/17/17 Moderate obstructive lesions noted in the proximal left internal carotid artery. Mild increase since the prior exam. No significant stenosis right ICA. Antegrade vertebral arteries. CONCLUSIONS Right ICA stenosis 50-69%. Left ICA stenosis < 50%. Moderate plaque at the right proximal ICA. Dr. Rosario Mann DO (Electronically Signed) Final Date: 21 October 2022 06:48 S
--- NOTE | 2022-10-20 18:16 | PM.HP ---
Providers/Chief Complaint Admitting Physician: Killian Bates MD Primary Care Provider: Jenniffer Jenkins MD Chief Complaint: Slipped on the floor at [facility] a feeling dizzy History of Present Illness Capri Tobar is a 77 year old female with a past medical history of CAD, status post stenting, with history of in-stent thrombosis, history of GI bleed, history of peripheral arterial disease, hypertension, hyperlipidemia, who presents [facility] due to complaints of lightheadedness, dizziness, tunnel vision and then passing out. Patient tells me that for the last few days she has not been feeling well, no fevers, no chills, she does tell me that she been urinating more frequently. She tells me that today she was eating at a restaurant when she went up to pay the bill, she just went down before she went down she she feels lightheaded, she felt tunnel vision and went down, bystanders denied any slurring of her words no facial droop, no focal weakness, no seizure-like episodes. She denies any chest pain, no palpitations. No shortness of breath. No back pain, no significant head trauma reported. She does complain of pain in her face, she has had for the last year, she is on gabapentin and amitriptyline for it and it is bothering her intermittently, on the right side Review of Systems Const: Denies: fever(s) or chills Eyes: Denies: change in vision Card: Denies: chest pain or palpitations Resp: Denies: dyspnea GI: Denies: abdominal pain, nausea or vomiting : Denies: flank pain Musc: Denies: neck pain or back pain Skin/Breast: Denies: rash Neuro: Reports: headache(s) Psych: Denies: anxiety Endo: Reports: polyuria Medications/Allergies Home Medications Medication Instructions Recorded Confirmed Last Taken Type allopurinol 100 mg tablet 100 mg PO QAM 09/08/19 10/20/22 10/19/22 History amitriptyline 25 mg tablet 25 mg PO BEDTIME 09/08/19 10/20/22 10/19/22 History pantoprazole 40 mg tablet,delayed 40 mg PO QAM 09/08/19 10/20/22 10/19/22 History release acetaminophen 650 mg 650 - 1,300 mg PO Q12H PRN Pain 07/30/20 10/20/22 10/20/22 History tablet,extended release (Tylenol Arthritis Pain) albuterol sulfate 90 mcg/actuation 2 puff inhalation Q4H PRN 10/04/20 10/20/22 12/17/20 History aerosol inhaler (ProAir HFA) Shortness Of Breath glipizide 5 mg tablet, extended 5 mg PO BEDTIME 10/04/20 10/20/22 10/19/22 History release 24 hr nitroglycerin 0.4 mg sublingual 0.4 mg sublingual Q5M PRN chest 04/28/21 10/20/22 Unknown Rx tablet (Nitrostat) pain #25 tabs ondansetron 4 mg disintegrating 4 mg PO Q6H PRN nausea and 05/05/21 10/20/22 Unknown Rx tablet vomiting #14 tabs baclofen 5 mg tablet 5 mg PO TID PRN Muscle Pain 05/23/21 10/20/22 10/20/22 History budesonide-formoterol HFA 80 1 puff inhalation BID PRN unknown 05/23/21 10/20/22 Unknown History mcg-4.5 mcg/actuation aerosol inhaler (Symbicort) gabapentin 300 mg capsule 300 mg PO TID 05/23/21 10/20/22 10/20/22 History levothyroxine 50 mcg tablet 50 mcg PO BEDTIME 05/23/21 10/20/22 10/19/22 History metformin 500 mg tablet,extended 500 mg PO BEDTIME 05/23/21 10/20/22 10/19/22 History release 24 hr atorvastatin 80 mg tablet 80 mg PO BEDTIME #90 tabs 08/27/21 10/20/22 10/19/22 Rx insulin glargine 100 unit/mL (3 26 unit SUBCUT QAM 08/27/21 10/20/22 Unknown History mL) subcutaneous pen (Lantus Solostar U-100 Insulin) ticagrelor 90 mg tablet (Brilinta) 90 mg PO BID #180 tabs 08/27/21 10/20/22 10/19/22 Rx metoprolol tartrate 25 mg tablet 25 mg PO BID@0900,2100 #120 tabs 05/27/22 10/20/22 10/19/22 Rx aspirin 81 mg tablet,delayed 81 mg PO QAM 04/04/23 04/04/23 04/03/23 History release empagliflozin 10 mg tablet 10 mg PO QAM 10/20/22 10/20/22 10/19/22 History (Jardiance) lisinopril 20 mg tablet See Rx Instructions .Route .COMPLEX 10/20/22 10/20/22 10/19/22 History Allergies Allergy/AdvReac Type Severity Reaction Status Date / Time codeine Allergy Unknown Unknown Verified 10/20/22 15:11 tetanus and diphtheria Allergy Unknown Verified 10/20/22 15:11 toxoids Tetanus Vaccines and Toxoid Allergy Unknown Verified 10/20/22 15:11 PFSH Acute PFSH: Medical History Coronary artery disease History of KS (myocardial infarction) HTN (hypertension) PAD (peripheral artery disease) ST elevation myocardial infarction (STEMI) Surgical History H/O section H/O esophagogastroduodenoscopy (12/19/20) Gastric erosions History of cholecystectomy S/P appendectomy S/P breast biopsy S/P femoral-popliteal bypass surgery S/P PTCA (percutaneous transluminal coronary angioplasty) Status post colonoscopy (12/19/20) Extensive diverticulosis Family History Other CAD (coronary artery disease) Cancer Diabetes Hypertension Stroke Social History Smoking and tobacco status: former smoker Quit status (tobacco): has quit using tobacco Year quit tobacco: 2016 Alcohol intake: never Vitals/I&O/Wt Last Vital Signs Temp 96.4 F L 10/20/22 13:49 Pulse 75 10/20/22 16:15 Resp 14 10/20/22 16:15 BP 111/58 10/20/22 16:15 Pulse Ox 94 10/20/22 15:15 O2 Del Method 10/20/22 13:49 10/20/22 10/20/22 10/20/22 06:59 14:59 22:59 Intake Total 1000 / 1000 1000 / 2000 Balance 1000 / 1000 1000 / 2000 Weight last 48 hrs Weight 75.296 kg Physical Exam Const: COMMON NORMALS: no acute distress and patient oriented x3 HENMT: COMMON NORMALS: normocephalic HEAD & SCALP: normocephalic FACE & SINUS: normal facial exam Eye: COMMON NORMALS: Equal, round and reactive pupils present and EOMs intact bilaterally Neck/C-Spine: COMMON NORMALS: no JVD Lymph: LYMPHATIC: no lymphadenopathy noted Resp: COMMON NORMALS: normal respiratory effort, No retractions, No use of accessory muscles and clear to auscultation bilaterally AUSCULTATION: clear to auscultation bilaterally Cardio: COMMON NORMALS: no JVD, regular rate, regular rhythm, S1 normal heart sound present and S2 normal heart sound present RATE: regular rate RHYTHM: regular rhythm HEART SOUNDS: S1 normal heart sound present and S2 normal heart sound present GI: COMMON NORMALS: Normal to inspection, nondistended, normoactive bowel sounds present, Soft to palpation and non-tender PALPATION: Yes Soft to palpation and Yes No hepatosplenomegaly present : COMMON NORMALS: Yes no CVA tenderness Extremity: COMMON NORMALS: no calf tenderness and no pedal edema Neuro: COMMON NORMALS: patient oriented x3, CN's II-XII intact bilaterally, moves all extremities and no focal motor deficits Psych: COMMON NORMALS: mental status grossly normal Data 10/20/22 14:00 10/20/22 14:00 Micro: Microbiology 10/20/22 17:05 Blood Culture - Preliminary Blood SPECIMEN COLLECTED 10/20/22 16:58 Blood Culture - Preliminary Blood SPECIMEN COLLECTED A&P Assessment and plan (1) Urinary tract infection: Qualifiers: Hematuria presence: with hematuria Urinary tract infection type: acute cystitis Qualified Code(s): N30.01 - Acute cystitis with hematuria (2) Acute kidney injury: (3) Acute hypotension: (4) Syncopal episodes: (5) PAD (peripheral artery disease): (6) HTN (hypertension): Qualifiers: Hypertension type: essential hypertension Qualified Code(s): I10 - Essential (primary) hypertension (7) Transaminitis: Plan Acute kidney injury -Likely secondary dehydration, UTI, syncopal episode -Obtain CPK -IV fluids Dehydration -IV fluids Urinary tract infection -Follow-up urine cultures, blood cultures -Continue Zosyn -CT scan abdomen pelvis ordered Syncopal episode -Likely combination of dehydration, UTI -Has a CAD history, serial EKG serial troponins telemetry monitoring, cardiac echo -CT head no acute findings -Carotid artery ultrasound -Orthostatic vitals CAD, continue aspirin, statin, Brilinta Type 2 diabetes mellitus -Decrease Lantus to 10 units subcu every morning -Low-dose sliding scale Trigeminal neuralgia -Continue gabapentin, amitriptyline -Ultram as needed for pain Full code Lovenox for DVT prophylaxis Attestations Medical Necessity Statement*: Patient requires hospitalization, inpatient, greater than 2 midnights, for orthostatic hypotension dehydration ASHELY, UTI, syncope Coding Level of Care Code Acute Code for Chg Fwd Diagnoses Urinary tract infection N30.01 Hematuria presence: with hematuria Urinary tract infection type: acute cystitis Acute kidney injury N17.9 Acute hypotension I95.9 Syncopal episodes R55 PAD (peripheral artery disease) I73.9 HTN (hypertension) I10 Hypertension type: essential hypertension Transaminitis R74.01
[2022-10-20 19:19] LABS: Creatine Phosphokinase 83 U/L (26-192)
[2022-10-20 19:27] LABS: HIV 1 & 2 Antibody Non-Reactive (Non-Reactiv); HIV 1 & 2 Antigen Non-Reactive (Non-Reactiv)
[2022-10-20 20:27] LABS: Troponin 5 6HR 12.55 ng/L (0-10); Troponin 5 6HR Delta -6.45 ng/L (0-12)
[2022-10-20] MEDS: ticagrelor 90 mg Tablet PO (20:59)
[2022-10-20] MEDS: gabapentin 300 mg Capsule PO (20:59)
[2022-10-20] MEDS: amitriptyline 25 mg Tablet PO (20:59)
[2022-10-20] MEDS: atorvastatin 40 mg Tablet 80 MG PO (20:59)
[2022-10-20] MEDS: levothyroxine 50 mcg Tablet PO (20:59)
[2022-10-20] MEDS: sodium chloride 0.9% 1,000 ML 125 ML IV (21:03)
--- NOTE | 2022-10-20 21:08 | PC.NURSE ---
This nurse was made aware by the pt that she has a history of a GI bleed and is unsure if she wants to take lovenox for fears of bleeding again. This nurse explained the risk and benefits of taking and or not taking this medication. Ultimately the pt decided to hold off on taking the 30mg lovenox tonight. Dr. Bennett has been notified and made aware.
[2022-10-20 21:26] LABS: Glucose Point of Care 66 mg/dL (70-110)
--- NOTE | 2022-10-20 21:39 | ECG_ITS ---
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 Measurements Intervals [place] Rate: 66 P: 40 ME: 161 QRS: 35 QRSD: 83 T: 37 QT: 381 QTc: 401 Interpretive Statements SINUS RHYTHM WITH MARKED SINUS ARRHYTHMIA LOW QRS VOLTAGE IN PRECORDIAL LEADS [QRS DEFLECTION < 1.0 mV IN CHEST LEADS] Compared to ECG 10/20/2022 16:31:11 Low QRS voltage now present Myocardial infarct finding no longer present Electronically Signed On 10-21-2022 8:09:06 CDT by Rashaad Jensen M.D. [id number]
[2022-10-20 21:45] LABS: Hepatitis A Antibody IgM Non-Reactive (Nonreactive); Hepatitis B Surface Antigen Non-Reactive (Nonreactive); Hepatitis C Virus Antibody Non-Reactive (Nonreactive)
[2022-10-20 21:50] LABS: Glucose Point of Care 51 mg/dL (70-110)
[2022-10-20 21:52] LABS: Hepatitis B Core IgM Non-Reactive (Nonreactive)
[2022-10-20] MEDS: dextrose 5% 1,000 ML 100 ML IV (22:17)
--- NOTE | 2022-10-20 23:13 | PC.NURSE ---
pt requested to have her blood sugar check again.
[2022-10-20 23:18] LABS: Glucose Point of Care 66 mg/dL (70-110)
[2022-10-20 23:18] LABS: Glucose Point of Care 111 mg/dL (70-110)
--- NOTE | 2022-10-20 23:23 | PC.NURSE ---
most recent blood glucose 111.
[2022-10-21] VITALS (13 sets, daily range): BP systolic 107–167; BP diastolic 64–81; PULSE 72–108; RESP 16–18; TEMP 36.4–37.1; O2SAT 90–95
[2022-10-21] MEDS: piperacillin-tazobactam 3.375 GM in sodium chloride 0.9% (plus) 50 ML IV ×3 (02:15→21:08)
[2022-10-21 02:57] LABS: Glucose Point of Care 100 mg/dL (70-110)
--- NOTE | 2022-10-21 03:06 | PC.NURSE ---
Pt requested for her glucose to be checked again. Blood glucose was 100 upon most recent check.
[2022-10-21] MEDS: TRAMadol 50 mg Tablet PO (04:45)
[2022-10-21 05:10] LABS: Basophils # 0.1 10^3/uL (0.0-0.1); Basophils % 0.6 %; Eosinophils # 0.4 10^3/uL (0.0-0.8); Eosinophils % 4.8 %; Hematocrit 39.6 % (37.0-47.0); Lymphocytes % 23.4 %; Mean Corpuscular HGB Conc 30.3 g/dL (30.0-36.0); Mean Corpuscular Volume 85.9 fl (81-99); Mean Platelet Volume 10.5 fL (7.4-10.4); Monocytes # 0.8 10^3/uL (0.2-0.9); Monocytes % 9.8 %; Neutrophils # 5.11 10^3/uL (1.8-7.7); Neutrophils % 61.2 %; Nucleated Red Blood Cells % 0 %; Platelet Count 179 10^3/cmm (130-400); Red Blood Count 4.61 10^6/uL (4.1-5.3); Red Cell Distribution Width 19.2 % (12.1-15.1); White Blood Count 8.4 10^3/uL (4.0-10.0)
[2022-10-21 05:33] LABS: Anion Gap 14.1 (5-19); Blood Urea Nitrogen 30 mg/dL (8-23); Calcium 8.6 mg/dL (8.5-10.5); Carbon Dioxide 20 mmol/L (22-29); Chloride 112 mmol/L (98-107); Glucose 102 mg/dL (65-115); Magnesium 1.9 mg/dL (1.7-2.3); Osmolality Calculated 300 mOsm/kg (285-295); Potassium 4.1 mmol/L (3.5-5.1); Sodium 142 mmol/L (136-145)
[2022-10-21 05:56] LABS: Glucose Point of Care 104 mg/dL (70-110)
[2022-10-21] MEDS: allopurinol 100 mg Tablet PO (06:12)
[2022-10-21] MEDS: pantoprazole DR 40 mg Tablet PO (06:12)
[2022-10-21] MEDS: aspirin 81 mg EC Tablet PO (06:12)
[2022-10-21 06:50] LABS: Glucose Point of Care 118 mg/dL (70-110)
[2022-10-21] MEDS: insulin glargine 100 units/1 mL 10 UNIT SUBCUT (06:57)
[2022-10-21] MEDS: dextrose 5% 1,000 ML 100 ML IV ×2 (08:13→17:24)
--- NOTE | 2022-10-21 08:23 | CT_ITS ---
WS: [id number] CT ANGIOGRAM CEREBRAL AND CAROTID ARTERIES HISTORY: dizziness, tunnel vision, passing out TECHNIQUE: CT angiogram is performed of the carotid and cerebral arteries. During arterial injection imaging is obtained from the skull vertex to the aortic arch in 1.25 mm imaging. Coronal and sagittal reformats are submitted. Additional multi planar reformats of the carotid and cerebral arteries are submitted, MIP imaging also reviewed. NASCET criteria utilized. [facility] at least one of these dose optimization techniques: automated exposure control; mA and/or kV adjust ment per patient size (includes targeted exams where dose is matched to clinical indication); or iter ative reconstruction. CONTRAST: Omnipaque 350; 100 mL IV. DLP: 985.90 mGy.cm COMPARISON: Noncontrast CT head 10/20/2022. Noncontrast CT head: Mild atrophy. No interval change. No hemorrhage or edema. Ventricles are normal size. Carotid Angiogram: Right carotid: Common carotid artery: Small amount calcification at the origin, carotid artery. No high-grade stenos is. Internal carotid artery: Moderate irregular calcified plaque proximal RIGHT ICA. Stenosis estimated n ear 50-60%. External carotid artery: Patent. Left carotid: Common carotid artery: Small noncalcified plaque at the origin. No high-grade stenosis. Internal carotid artery: Moderate plaque at the bifurcation. Stenosis estimated near 60%. External carotid artery: Patent. Right vertebral artery: Unremarkable. Left vertebral artery: Unremarkable. Arises normally from the subclavian artery. Subclavian arteries: No stenosis or significant abnormality. Upper thorax: Centrilobular emphysema. Thyroid gland: Normal. Osseous structures: Scoliosis and cervical spondylosis. CEREBRAL ANGIOGRAM: Intracranial vertebral arteries: Scattered plaque with no occlusion in the distal vertebral arteries. Basilar artery: No significant stenosis or occlusion. No aneurysm. Intracranial Internal carotid arteries: Heavy plaque burden indicating the distal petrous portions of the carotid arteries extending to the cavernous sinuses and supraclinoid. Stenosis greater than 50% in the cavernous carotid arteries, greatest on the LEFT. No occlusion. Middle cerebral arteries: Normal. Anterior cerebral arteries and ACOM: Normal. Posterior cerebral arteries and PCOM's: Persistent circulation on the RIGHT. Dominant RIGHT pos terior communicating artery. Dural venous sinuses are normally enhancing. Mastoid air cells: Normal. Paranasal sinuses: Normal. Calvarium: Normal. CT/CT angio headneck* [id number] IMPRESSION: 1. Moderate bilateral cervical carotid artery stenosis estimated at 50-60%. 2. Long segment burden of calcified plaque through the intracranial carotid ar teries greater than 50%. Most significant long-term stenosis to the LEFT cavern ous carotid. 3. No aneurysm or occlusions. 4. Chronic emphysema.
[2022-10-21] MEDS: gabapentin 300 mg Capsule PO ×2 (08:31→17:17)
[2022-10-21] MEDS: ticagrelor 90 mg Tablet PO ×2 (08:31→21:09)
[2022-10-21] MEDS: HYDROcodone-acetaminophen 5-325 mg Tablet 1 TAB PO ×2 (09:01→21:09)
[2022-10-21] MEDS: iohexol 350 mg/mL 500 mL Btl (per mL) IV (09:05)
[2022-10-21 11:40] LABS: Glucose Point of Care 226 mg/dL (70-110)
[2022-10-21 11:46] LABS: Erythrocyte Sedimentation Rate 21 mm/hr (0-15)
[2022-10-21] MEDS: insulin lispro 100 unit/1 mL SUBCUT (12:45)
--- NOTE | 2022-10-21 13:21 | PM.PN ---
Subjective Subjective: Patient is very tearful this morning, she is having a severe attack of her trigeminal neuralgia on the right side, the right side of her face, she refuses to move her hand off the right side of her face, due to severe pain she tells me that the Ultram does not really help, nor does the gabapentin, she is just come back from CT, no headache, blurry vision, no nausea, no vomiting Vitals/I&O/Wt Last Vital Signs Temp 98.0 F 10/21/22 12:45 Pulse 87 10/21/22 12:45 Resp 18 10/21/22 12:45 BP 120/64 10/21/22 12:45 Pulse Ox 91 10/21/22 12:00 O2 Del Method 10/21/22 12:00 10/20/22 10/21/22 10/21/22 22:59 06:59 14:59 Intake Total 1566.25 / 2566.25 530 / 3096.25 1353.333 / 1353.333 Balance 1566.25 / 2566.25 530 / 3096.25 1353.333 / 1353.333 Weight last 48 hrs Weight 76.657 kg Weight 75.296 kg Physical Exam Const: COMMON NORMALS: no acute distress and patient oriented x3 Resp: COMMON NORMALS: normal respiratory effort, No retractions, No use of accessory muscles and clear to auscultation bilaterally AUSCULTATION: clear to auscultation bilaterally Cardio: COMMON NORMALS: regular rate, regular rhythm, S1 normal heart sound present and S2 normal heart sound present RATE: regular rate RHYTHM: regular rhythm HEART SOUNDS: S1 normal heart sound present and S2 normal heart sound present GI: COMMON NORMALS: Normal to inspection, nondistended, normoactive bowel sounds present and non-tender Extremity: COMMON NORMALS: no pedal edema Neuro: COMMON NORMALS: patient oriented x3 Psych: COMMON NORMALS: mental status grossly normal Data 10/21/22 04:28 10/21/22 04:28 Micro: Microbiology 10/20/22 17:05 Blood Culture - Preliminary Blood SPECIMEN COLLECTED 10/20/22 16:58 Blood Culture - Preliminary Blood SPECIMEN COLLECTED A&P Assessment and plan (1) Urinary tract infection: Qualifiers: Hematuria presence: with hematuria Urinary tract infection type: acute cystitis Qualified Code(s): N30.01 - Acute cystitis with hematuria (2) Acute kidney injury: (3) Acute hypotension: (4) Syncopal episodes: (5) PAD (peripheral artery disease): (6) HTN (hypertension): Qualifiers: Hypertension type: essential hypertension Qualified Code(s): I10 - Essential (primary) hypertension (7) Transaminitis: (8) Trigeminal neuralgia of right side of face: Plan Acute kidney injury -Likely secondary dehydration, UTI, syncopal episode -IV fluids Dehydration -IV fluids Urinary tract infection -Follow-up urine cultures, blood cultures -Continue Zosyn Syncopal episode -Likely combination of dehydration, UTI -Has a CAD history, serial EKG serial troponins telemetry monitoring, cardiac echo -CT head no acute findings -Carotid artery ultrasound Right ICA stenosis 50-69%. ?Left ICA stenosis < 50%. ?Moderate plaque at the right proximal ICA. CTA head and neck 1.? Moderate bilateral cervical carotid artery stenosis estimated at 50-60%. 2.? Long segment burden of calcified plaque through the intracranial carotid arteries greater than 50%. Most significant long-term stenosis to the LEFT cavernous carotid. 3.? No aneurysm or occlusions. 4.? Chronic emphysema. - Continue aspirin, statin, Brilinta -Cardiac echo -Normal left ventricular size and systolic function, EF 71 %. ?Grade I/IV diastolic dysfunction (abnormal relaxation filling ?pattern), normal to mildly elevated filling pressures. ?Echodensity in the interatrial septum, may suggest lipomatous ?dystrophy.mildly increased left atrial size. ?Thickened aortic valve. ?Trace to mild tricuspid valve regurgitation. ?There is no pericardial effusion. ?There are no intracardiac masses. ?Compared to the study from 09/24/2022, there may not be ?significant change -Orthostatic vitals CAD, continue aspirin, statin, Brilinta, metoprolol Type 2 diabetes mellitus -Decrease Lantus to 10 units subcu every morning -Low-dose sliding scale Severe trigeminal neuralgia -Currently having a attack of trigeminal neuralgia -Decrease gabapentin to 300 mg twice daily -Stop amitriptyline -Try low-dose Tegretol 100 twice daily will consider increasing dose -[place] as needed for pain Full code Lovenox for DVT prophylaxis Attestations Medical Necessity Statement*: Patient requires hospitalization for ASHELY, dehydration, UTI, syncopal episodes, severe trigeminal neuralgia Diagnoses Urinary tract infection N30.01 Hematuria presence: with hematuria Urinary tract infection type: acute cystitis Acute kidney injury N17.9 Acute hypotension I95.9 Syncopal episodes R55 PAD (peripheral artery disease) I73.9 HTN (hypertension) I10 Hypertension type: essential hypertension Transaminitis R74.01 Trigeminal neuralgia of right side of face G50.0
[2022-10-21] MEDS: carBAMazepine 200 mg Tablet 100 MG PO (13:48)
--- NOTE | 2022-10-21 13:53 | PC.NURSE ---
notified Dr. 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 Patient stated to have been life lited due to a severe bleed and received 8 units of blood.
[2022-10-21 17:13] LABS: Glucose Point of Care 106 mg/dL (70-110)
[2022-10-21 20:53] LABS: Glucose Point of Care 153 mg/dL (70-110)
[2022-10-21] MEDS: levothyroxine 50 mcg Tablet PO (21:09)
[2022-10-21] MEDS: metoprolol tartrate 25 mg Tablet PO (21:09)
[2022-10-21] MEDS: atorvastatin 40 mg Tablet 80 MG PO (21:09)
[2022-10-22] VITALS (9 sets, daily range): BP systolic 115–158; BP diastolic 73–79; PULSE 60–79; RESP 16–19; TEMP 36.5–36.6; O2SAT 93–96
[2022-10-22] MEDS: carBAMazepine 200 mg Tablet 100 MG PO (02:28)
[2022-10-22] MEDS: dextrose 5% 1,000 ML 100 ML IV (03:34)
[2022-10-22] MEDS: piperacillin-tazobactam 3.375 GM in sodium chloride 0.9% (plus) 50 ML IV (03:34)
[2022-10-22 05:34] LABS: Basophils # 0.1 10^3/uL (0.0-0.1); Basophils % 1.1 %; Eosinophils # 0.6 10^3/uL (0.0-0.8); Eosinophils % 7.6 %; Hematocrit 39.9 % (37.0-47.0); Hemoglobin 11.9 g/dL (11.5-15.3); Lymphocytes # 2.2 10^3/uL (0.8-4.8); Lymphocytes % 26.8 %; Mean Corpuscular HGB Conc 29.8 g/dL (30.0-36.0); Mean Corpuscular Hemoglobin 25.1 pg (28.0-34.0); Mean Corpuscular Volume 84.2 fl (81-99); Mean Platelet Volume 10.6 fL (7.4-10.4); Monocytes # 0.9 10^3/uL (0.2-0.9); Monocytes % 10.9 %; Neutrophils # 4.35 10^3/uL (1.8-7.7); Neutrophils % 53.5 %; Nucleated Red Blood Cells % 0 %; Platelet Count 192 10^3/cmm (130-400); Red Blood Count 4.74 10^6/uL (4.1-5.3); Red Cell Distribution Width 19.3 % (12.1-15.1); White Blood Count 8.1 10^3/uL (4.0-10.0)
[2022-10-22 05:55] LABS: Anion Gap 14.1 (5-19); Blood Urea Nitrogen 13 mg/dL (8-23); Calcium 8.7 mg/dL (8.5-10.5); Carbon Dioxide 22 mmol/L (22-29); Chloride 110 mmol/L (98-107); Glucose 130 mg/dL (65-115); Osmolality Calculated 296 mOsm/kg (285-295); Potassium 4.1 mmol/L (3.5-5.1); Sodium 142 mmol/L (136-145)
[2022-10-22] MEDS: allopurinol 100 mg Tablet PO (06:30)
[2022-10-22] MEDS: aspirin 81 mg EC Tablet PO (06:30)
[2022-10-22] MEDS: pantoprazole DR 40 mg Tablet PO (06:30)
[2022-10-22] MEDS: insulin glargine 100 units/1 mL 10 UNIT SUBCUT (06:30)
[2022-10-22 08:04] LABS: Glucose Point of Care 125 mg/dL (70-110)
[2022-10-22 08:32] LABS: Glucose Point of Care 121 mg/dL (70-110)
[2022-10-22] MEDS: ticagrelor 90 mg Tablet PO (10:15)
[2022-10-22] MEDS: gabapentin 300 mg Capsule PO (10:16)
[2022-10-22] MEDS: ondansetron 2 mg/ML SDV 2 mL 4 MG IVP (10:17)
[2022-10-22] MEDS: metoprolol tartrate 25 mg Tablet PO (10:17)
--- NOTE | 2022-10-22 11:25 | PM.DCS ---
Discharge Providers Date of Admission: 10/20/22 18:11 Date of Discharge: October 22, 2022 Attending Provider at Admission: Killian Bates MD Attending Provider at Discharge: Killian Bates MD Primary Care Provider: Jenniffer Jenkins MD Diagnoses at Discharge Discharge Diagnosis (1) Urinary tract infection: Status: Acute Qualifiers: Hematuria presence: with hematuria Urinary tract infection type: acute cystitis Qualified Code(s): N30.01 - Acute cystitis with hematuria (2) Acute kidney injury: Status: Acute (3) Acute hypotension: Status: Acute (4) Syncopal episodes: Status: Acute (5) PAD (peripheral artery disease): Status: Acute (6) HTN (hypertension): Status: Acute Qualifiers: Hypertension type: essential hypertension Qualified Code(s): I10 - Essential (primary) hypertension (7) Transaminitis: Status: Acute (8) Trigeminal neuralgia of right side of face: Status: Acute Reason for Visit Reason for Visit: Slipped on the floor at [facility] feeling dizzy Hospital Course Hospital Course taye Tobar is a 77 year old female with a past medical history of CAD, status post stenting, with 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 due to complaints of lightheadedness, dizziness, tunnel vision and then passing out.? Patient tells me that for the last few days she has not been feeling well, no fevers, no chills, she does tell me that she been urinating more frequently.? She tells me that today she was eating at a restaurant when she went up to pay the bill, she just went down before she went down she she feels lightheaded, she felt tunnel vision and went down, bystanders denied any slurring of her words no facial droop, no focal weakness, no seizure-like episodes.? She denies any chest pain, no palpitations.? No shortness of breath.? No back pain, no significant head trauma reported.? She does complain of pain in her face, she has had for the last year, she is on gabapentin and amitriptyline for it and it is bothering her intermittently, on the right side Patient was admitted to [facility] for syncope episode, possibly secondary to dehydration and UTI. CT head no acute findings, telemetry monitoring no acute findings, cardiac echo, no acute findings, CTA did show moderate bilateral cervical carotid artery stenosis at 50 to 60%, long segment burden of calcified plaque throughout the intracranial carotid arteries greater than 50%. Patient will be discharged on an event monitor with a close follow-up with cardiology as outpatient For her ASHELY and dehydration received IV fluids For her urinary tract infection she received broad-spectrum antibiotic therapy, so far cultures unremarkable, discharged on cefdinir Patient had significant trigeminal neuralgia attacks during hospitalization, she has already tried and failed Lyrica, on gabapentin, and Elavil. Ultram did not help during hospitalization. 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 It has been more than 2 years since her stent placement, but given her complicated history Tegretol might not be the best option. Hydrocodone did help during her hospitalization, so I would discharge on a short supply of hydrocodone to be used sparingly for her trigeminal neuralgia related pain. Would have her follow-up with neurology, Dr. Henson for other options that are available, including surgical options Physical Exam Const: COMMON NORMALS: no acute distress and patient oriented x3 Resp: COMMON NORMALS: normal respiratory effort, No retractions, No use of accessory muscles and clear to auscultation bilaterally AUSCULTATION: clear to auscultation bilaterally Cardio: COMMON NORMALS: regular rate, regular rhythm, S1 normal heart sound present and S2 normal heart sound present RATE: regular rate RHYTHM: regular rhythm HEART SOUNDS: S1 normal heart sound present and S2 normal heart sound present GI: COMMON NORMALS: Normal to inspection, nondistended, normoactive bowel sounds present and non-tender Extremity: COMMON NORMALS: no pedal edema Neuro: COMMON NORMALS: patient oriented x3 Psych: COMMON NORMALS: mental status grossly normal Discharge Data Studies Completed and Pending Completed Studies During Hospitalization Category Date Time Status CT abdomen pelvis wo con [id number] Stat Cat Scan 10/20/22 16:[address] angio head neck [CT angio headneck* [id number]] Cat Scan 10/21/22 08:[address] head wo con* [id number] Stat Cat Scan 10/20/22 14:06 Completed XR chest 1V portable [id number] Stat Exams 10/20/22 14:06 Completed CV carotid duplex BI* [id number] Routine Ultrasound 10/20/22 18:14 Completed CV. echo complete* [id number] Routine Ultrasound 10/20/22 18:14 Completed Pending at discharge Category Date Time Status Basic Metabolic Panel AM LABS Lab 10/23/22 04:00 Ordered Basic Metabolic Panel AM LABS Lab 10/24/22 04:00 Ordered Blood Culture Stat Lab 10/20/22 17:05 Results Complete Blood Count w/Auto AM LABS Lab 10/23/22 04:00 Ordered Complete Blood Count w/Auto AM LABS Lab 10/24/22 04:00 Ordered Urine Culture Stat Lab 10/20/22 15:42 Received Radiology Impressions Chest X-Ray 10/20/22 14:06 IMPRESSION: Negative chest exam. Head CT 10/20/22 14:06 IMPRESSION: No acute intracranial hemorrhage or edema. Stable noncontrast head CT. Abdomen/Pelvis CT 10/20/22 16:48 IMPRESSION: 1. No acute findings within the abdomen or pelvis. 2. Unremarkable CT exam of the kidneys ureters and bladder. 3. Small amount of unexplained air within the endometrial cavity. Recommend follow-up nonemergent pelvic ultrasound for further assessment. 4. 3 cm right ovarian cyst increased in size which in view of patient's age should also be further assessed on follow-up pelvic ultrasound. 5. Colonic diverticulosis. No evidence of acute diverticulitis. 6. Additional chronic findings as above. Head/Neck CTA 10/21/22 08:23 IMPRESSION: 1. Moderate bilateral cervical carotid artery stenosis estimated at 50-60%. 2. Long segment burden of calcified plaque through the intracranial carotid arteries greater than 50%. Most significant long-term stenosis to the LEFT cavernous carotid. 3. No aneurysm or occlusions. 4. Chronic emphysema. Laboratory Results WBC 8.1 10^3/uL (4.0-10.0) 10/22/22 05:00 RBC 4.74 10^6/uL (4.1-5.3) 10/22/22 05:00 Hgb 11.9 g/dL (11.5-15.3) 10/22/22 05:00 Hct 39.9 % (37.0-47.0) 10/22/22 05:00 MCV 84.2 fl (81-99) 10/22/22 05:00 MCH 25.1 pg (28.0-34.0) L 10/22/22 05:00 MCHC 29.8 g/dL (30.0-36.0) L 10/22/22 05:00 RDW 19.3 % (12.1-15.1) H 10/22/22 05:00 Plt Count 192 10^3/cmm (130-400) 10/22/22 05:00 MPV 10.6 fL (7.4-10.4) H 10/22/22 05:00 Neut % (Auto) 53.5 % 10/22/22 05:00 Lymph % (Auto) 26.8 % 10/22/22 05:00 [place] % (Auto) 10.9 % 10/22/22 05:00 Eos % (Auto) 7.6 % 10/22/22 05:00 Baso % (Auto) 1.1 % 10/22/22 05:00 Neut # (Auto) 4.35 10^3/uL (1.8-7.7) 10/22/22 05:00 Lymph # (Auto) 2.2 10^3/uL (0.8-4.8) 10/22/22 05:00 [place] # (Auto) 0.9 10^3/uL (0.2-0.9) 10/22/22 05:00 Eos # (Auto) 0.6 10^3/uL (0.0-0.8) 10/22/22 05:00 Baso # (Auto) 0.1 10^3/uL (0.0-0.1) 10/22/22 05:00 Nucleated RBC % (auto) 0 % 10/22/22 05:00 Nucleated RBCs # 0.0 /100WBC 10/22/22 05:00 ESR 21 mm/hr (0-15) H 10/21/22 04:28 Sodium 142 mmol/L (136-145) 10/22/22 05:00 Potassium 4.1 mmol/L (3.5-5.1) 10/22/22 05:00 Chloride 110 mmol/L (98-107) H 10/22/22 05:00 Carbon Dioxide 22 mmol/L (22-29) 10/22/22 05:00 Anion Gap 14.1 (5-19) 10/22/22 05:00 BUN 13 mg/dL (8-23) 10/22/22 05:00 Creatinine 0.9 mg/dL (0.5-0.9) 10/22/22 05:00 GFR Calculation Not Reportable 10/22/22 05:00 Glucose 130 mg/dL (65-115) H 10/22/22 05:00 POC Glucose 121 mg/dL (70-110) H 10/22/22 08:28 Calculated Osmolality 296 mOsm/kg (285-295) H 10/22/22 05:00 Lactic Acid 1.0 mmol/L (0.5-2.2) 10/20/22 16:58 Calcium 8.7 mg/dL (8.5-10.5) 10/22/22 05:00 Magnesium 1.9 mg/dL (1.7-2.3) 10/21/22 04:28 Total Bilirubin 0.8 mg/dL (0.15-1.2) 10/20/22 14:00 AST 69 U/L (0-32) H 10/20/22 14:00 ALT 50 U/L (0-33) H 10/20/22 14:00 Alkaline Phosphatase 129 U/L (35-105) H 10/20/22 14:00 Creatine Kinase 83 U/L (26-192) 10/20/22 14:00 Troponin T Baseline 19 ng/L (0-10) H 10/20/22 14:00 Troponin T 120 Minute 14.26 ng/L (0-10) H 10/20/22 16:00 Delta Troponin T -4.74 ABS# (0-10) L 10/20/22 16:00 Troponin T Hi Sens 6Hr 12.55 ng/L (0-10) H 10/20/22 20:02 Troponin T Hi Sens 6Hr Delta -6.45 ng/L (0-12) L 10/20/22 20:02 Total Protein 7.8 g/dL (6.6-8.7) 10/20/22 14:00 Albumin 3.7 g/dL (3.5-5.2) 10/20/22 14:00 Globulin 4.1 g/dL (1.3-4.6) 10/20/22 14:00 Procalcitonin 0.09 ng/mL (0-0.5) 10/20/22 16:58 TSH 2.08 uIU/mL (0.27-4.20) 10/20/22 14:00 TSH Cancelled 10/20/22 14:00 Urine Color Yellow (Yellow) 10/20/22 15:42 Urine Appearance Cloudy (CLEAR) A 10/20/22 15:42 Urine pH 5 (5-7) 10/20/22 15:42 Ur Specific [place] 1.025 (1.005-1.030) 10/20/22 15:42 Urine Protein Trace (Negative) 10/20/22 15:42 Urine Glucose (UA) 2+ (Normal) H 10/20/22 15:42 Urine Ketones 1+ (Negative) H 10/20/22 15:42 Urine Blood Neg (Negative) 10/20/22 15:42 Urine Nitrate Negative (Negative) 10/20/22 15:42 Urine Bilirubin 1+ (Negative) H 10/20/22 15:42 Urine Urobilinogen 1 mg/dL (Negative) H 10/20/22 15:42 Ur Leukocyte Esterase 2+ (Negative) H 10/20/22 15:42 Urine RBC 15-25 /hpf (0-2) H 10/20/22 15:42 Urine WBC 15-25 /hpf (0-5) H 10/20/22 15:42 Ur Squamous Epith Cells 5-10 /hpf (0-5) H 10/20/22 15:42 Amorphous Sediment Not Reportable 10/20/22 15:42 Urine Bacteria 3+ /hpf (NONE) H 10/20/22 15:42 Urine Yeast 3+ /hpf H 10/20/22 15:42 Hepatitis A IgM Ab Non-reactive (Nonreactive) 10/20/22 14:00 Hep Bs Antigen Non-reactive (Nonreactive) 10/20/22 14:00 Hep B Core IgM Ab Non-reactive (Nonreactive) 10/20/22 14:00 Hepatitis C Antibody Non-reactive (Nonreactive) 10/20/22 14:00 HIV 1&2 Ab & HIV 1 Ag Non-reactive (Non-Reactiv) 10/20/22 14:00 HIV 1&2 Antibody Non-reactive (Non-Reactiv) 10/20/22 14:00 Vitals Last Vital Signs Temp 97.8 F 10/22/22 08:00 Pulse 78 10/22/22 08:44 Resp 18 10/22/22 08:44 BP 158/79 10/22/22 08:00 Pulse Ox 95 10/22/22 08:44 O2 Del Method 10/22/22 08:44 Discharge Plan Discharge Patient Disposition: Home Condition: Stable Prescriptions: New hydrocodone-acetaminophen 5-325 mg Tablet 1 tab PO Q12H PRN (Reason: Moderate Pain) 7 Days Qty: 14 0RF cefdinir 300 mg capsule 300 mg PO BID 5 Days Qty: 10 0RF Continued acetaminophen [Tylenol Arthritis Pain] 650 mg tablet extended release 650 - 1,300 mg PO Q12H PRN (Reason: Pain) pantoprazole 40 mg tablet,delayed release (DR/EC) 40 mg PO QAM allopurinol 100 mg tablet 100 mg PO QAM amitriptyline 25 mg tablet 25 mg PO BEDTIME atorvastatin 80 mg tablet 80 mg PO BEDTIME Qty: 90 3RF Brilinta 90 mg tablet 90 mg PO BID Qty: 180 3RF nitroglycerin [Nitrostat] 0.4 mg tablet, sublingual 0.4 mg sublingual Q5M PRN (Reason: chest pain) Qty: 25 4RF Rx Instructions: DO NOT EXCEED 3 DOSES PER EPISODE metoprolol tartrate 25 mg tablet 25 mg PO BID@0900,2100 Qty: 120 3RF albuterol sulfate [ProAir HFA] 90 mcg/actuation Hfa Aerosol Inhaler 2 puff INHALATION Q4H PRN (Reason: Shortness Of Breath) ondansetron 4 mg tablet,disintegrating 4 mg PO Q6H PRN (Reason: nausea and vomiting) Qty: 14 0RF levothyroxine 50 mcg tablet 50 mcg PO BEDTIME gabapentin 300 mg capsule 300 mg PO TID metformin 500 mg tablet extended release 24 hr 500 mg PO BEDTIME budesonide-formoterol [Symbicort] 80-4.5 mcg/actuation HFA aerosol inhaler 1 puff INHALATION BID PRN (Reason: unknown) baclofen 5 mg tablet 5 mg PO TID PRN (Reason: Muscle Pain) Jardiance 10 mg tablet 10 mg PO QAM lisinopril 20 mg tablet See Rx Instructions .ROUTE .COMPLEX Rx Instructions: Take 20mg (1 tab) in AM and 10mg (0.5 tab) in PM aspirin 81 mg tablet,delayed release (DR/EC) 81 mg PO QAM Changed Lantus Solostar U-100 Insulin 100 unit/mL (3 mL) insulin pen 10 unit SUBCUT QAM Qty: 15 0RF Discontinued glipizide 5 mg tablet extended release 24hr 5 mg PO BEDTIME Discharge Orders: Discharge Order (Routine); Ordered 10/22/22 Ordered By: Killian Bates Other Ambulatory Orders: MCT/Event Monitor 30 Days (Routine) Timeframe: 1 Day Facility: [facility] - Location: Radiology Ordered By: Killian Bates Referrals: Ashanti Henson MD [Physician] - 4-7 days (trigeminal neuralgia) Jenniffer Jenkins MD [Primary Care Provider] - Meliton Ballard MD [Physician] - 1 month Discharge Diet: Cardiac Discharge Activity: Resume usual activity Patient Instructions: Opioid Safety Activity Restrictions/Additional Instructions: - Hydrate well -Take antibiotics for UTI -Please follow-up with neurology for trigeminal neuralgia -I decreased your dose of Lantus to 10 units subcu every morning, due to reasonable blood sugars -Use hydrocodone sparingly for trigeminal neuralgia related pain Discharge Attestations Time Spent in Discharge Care*: greater than 30 min Quality Metrics Clinical Quality Measures [ No reported AMI, CVA or VTE this stay] Coding Level of Care Code 04092 Total time (in minutes) for Discharge: 50 Diagnoses Urinary tract infection N30.01 Hematuria presence: with hematuria Urinary tract infection type: acute cystitis Acute kidney injury N17.9 Acute hypotension I95.9 Syncopal episodes R55 PAD (peripheral artery disease) I73.9 HTN (hypertension) I10 Hypertension type: essential hypertension Transaminitis R74.01 Trigeminal neuralgia of right side of face G50.0
[2022-10-22 11:43] LABS: Glucose Point of Care 147 mg/dL (70-110)
--- NOTE | 2022-10-22 16:00 | PC.NURSE ---
Discussed discharge follow up appointments, new medications, continued medications and changed medications. Instructed patient to call Dr. Henson's office to make an appointment due to office not calling facility to make one. All questions answered and patient verbalized understanding.
== END 2022-10-22 15:24 | disposition home or self-care (01) | DRG 683 ==
LOC: ER 17:43 → MEDSURG 18:12
PROVIDERS: Admitting Provider Family Medicine; Emergency Provider Emergency Medicine; PCP Internal Medicine; Visit Provider Family Medicine
DX: N17.9 Acute kidney failure, unspecified (principal); N30.01 Acute cystitis with hematuria; I25.10 Atherosclerotic heart disease of native coronary artery without angina pectoris; Z95.5 Presence of coronary angioplasty implant and graft; I10 Essential (primary) hypertension; E78.5 Hyperlipidemia, unspecified; E86.0 Dehydration; I65.23 Occlusion and stenosis of bilateral carotid arteries; G50.0 Trigeminal neuralgia; Z79.02 Long term (current) use of antithrombotics/antiplatelets; Z79.51 Long term (current) use of inhaled steroids; Z79.84 Long term (current) use of oral hypoglycemic drugs; Z79.82 Long term (current) use of aspirin; Z79.4 Long term (current) use of insulin; I25.2 Old myocardial infarction; E11.51 Type 2 diabetes mellitus with diabetic peripheral angiopathy without gangrene; I95.1 Orthostatic hypotension; Z87.891 Personal history of nicotine dependence
CPT/HCPCS: 36415; 36416; 70450; 70496; 70498; 71045; 74176; 80048; 80053; 80074; 81001; 82550; 82962; 83605; 83735; 84145; 84443; 84484; 85025; 85651; 87040; 87086; 87806; 93005; 93306; 93880; 96365; 96367; 96372; 99285; J1815; J2405; J2543; J7030; J7070; Q9967

== ENCOUNTER 2022-11-11 16:47 | Emergency (ER) | payer MEDICARE, SELFPAY ==
[2022-11-11 16:57] VITALS: BP 90/65; PULSE 88; RESP 16; TEMP 36.8; O2SAT 98
[2022-11-11 18:19] VITALS: O2SAT 97
[2022-11-11 18:27] LABS: Basophils # 0.1 10^3/uL (0.0-0.1); Basophils % 0.6 %; Eosinophils # 0.3 10^3/uL (0.0-0.8); Eosinophils % 2.7 %; Hematocrit 43.2 % (37.0-47.0); Lymphocytes # 2.4 10^3/uL (0.8-4.8); Lymphocytes % 18.9 %; Mean Corpuscular HGB Conc 30.1 g/dL (30.0-36.0); Mean Corpuscular Hemoglobin 26.6 pg (28.0-34.0); Mean Corpuscular Volume 88.3 fl (81-99); Mean Platelet Volume 10.2 fL (7.4-10.4); Monocytes # 0.6 10^3/uL (0.2-0.9); Monocytes % 4.7 %; Neutrophils # 9.13 10^3/uL (1.8-7.7); Neutrophils % 72.5 %; Nucleated Red Blood Cells % 0 %; Platelet Count 279 10^3/cmm (130-400); Red Blood Count 4.89 10^6/uL (4.1-5.3); Red Cell Distribution Width 21.6 % (12.1-15.1); White Blood Count 12.6 10^3/uL (4.0-10.0)
--- NOTE | 2022-11-11 18:27 | ED_ITS ---
HPI - Nausea/Vomiting/Diarrhea General: Chief complaint: Nausea/Vomiting/Diarrhea Stated complaint: diarrhea 2xweeks Time Seen by Provider: 11/11/22 18:08 Source: patient Mode of arrival: ambulatory Limitations: no limitations History of Present Illness: 77-year-old female states she was admitted a month ago for UTI she had a 2-week course of antibiotics states since that 2 weeks is feeling she has had constant diarrhea states she has been having some abdominal cramping and nausea as well states she feels like she is dehydrated and feeling weak with some lightheadedness. She had no fevers denies any worsening improving factors. Associated nausea: Yes Associated symtoms: Reports nausea; Denies chest pain, dysuria or headache(s) Review of Systems Const: Reports: change in appetite; Denies: fever(s), chills or body aches Eyes: Denies: eye discomfort ENMT: Denies: throat pain or dental pain Card: Denies: chest pain Resp: Denies: dyspnea GI: Reports: nausea and diarrhea; Denies: abdominal pain or vomiting : Denies: dysuria Musc: Denies: neck pain or back pain Skin/Breast: Denies: rash Neuro: Denies: headache(s) PFSH ED PFSH: Medical History Coronary artery disease History of NE (myocardial infarction) HTN (hypertension) PAD (peripheral artery disease) ST elevation myocardial infarction (STEMI) Surgical History H/O section H/O esophagogastroduodenoscopy (12/19/20) Gastric erosions History of cholecystectomy S/P appendectomy S/P breast biopsy S/P femoral-popliteal bypass surgery S/P PTCA (percutaneous transluminal coronary angioplasty) Status post colonoscopy (12/19/20) Extensive diverticulosis Family History Other CAD (coronary artery disease) Cancer Diabetes Hypertension Stroke Social History Smoking and tobacco status: former smoker Quit status (tobacco): has quit using tobacco Year quit tobacco: 2016 Alcohol intake: never Substance/Drug Use: never Physical Exam Const: COMMON NORMALS: patient oriented x3 HENMT: COMMON NORMALS: normocephalic and atraumatic HEAD & SCALP: normoc ephalic and atraumatic Eye: COMMON NORMALS: conjunctivae normal CONJUNCTIVA: Yes conjunctivae normal Neck/C-Spine: COMMON NORMALS: full ROM and supple Chest: COMMONS NORMALS: normal inspection of the chest and normal palpation of entire chest wall Resp: COMMON NORMALS: normal respiratory effort, No retractions, No use of accessory muscles and clear to auscultation bilaterally AUSCULTATION: clear to auscultation bilaterally Cardio: COMMON NORMALS: regular rate, regular rhythm and No murmurs present (Cardio) RATE: regular rate RHYTHM: regular rhythm GI: COMMON NORMALS: Normal to inspection, nondistended, normoactive bowel sounds present, Soft to palpation, non-tender and no masses PALPATION: Yes Soft to palpation Extremity: COMMON NORMALS: normal to inspection and full ROM Neuro: COMMON NORMALS: patient oriented x3, moves all extremities and no focal motor deficits Psych: COMMON NORMALS: mental status grossly normal, Normal thought process present and cooperative THOUGHT PROCESS: Normal thought process present Skin: COMMON NORMALS: no rashes or lesions noted and no wounds GENERAL SKIN EXAM: no rashes or lesions noted Course Vital Signs: Vital signs: Vital Signs Temperature 98.3 F 11/11/22 16:57 Pulse Rate 82 11/11/22 21:29 Respiratory Rate 17 11/11/22 21:29 Blood Pressure 120/70 11/11/22 21:29 Pulse Oximetry 99 11/11/22 21:29 Oxygen Delivery Me thod Room Air 11/11/22 20:15 MDM - Nausea/Vomiting/Diarrhea Medical Decision Making Patient presents with diarrhea along with dehydration she feels much improved after IV fluids white count here is normal did hold her for multiple hours she was unable to give a stool sample I believe C. difficile is unlikely did give her Lomotil she is to follow-up with PCP and return if worsening she understands agrees to plan. Differential Diagnosis Likely traveler's diarrhea, food poisoning, gastroenteritis and clostridium difficile infection Medical Records I reviewed the patient's medical records. Lab Data I reviewed the patient's lab results. 11/11/22 18:14 11/11/22 18:14 Laboratory Results WBC 12.6 10^3/uL (4.0-10.0) H 11/11/22 18:14 RBC 4.89 10^6/uL (4.1-5.3) 11/11/22 18:14 Hgb 13.0 g/dL (11.5-15.3) 11/11/22 18:14 Hct 43.2 % (37.0-47.0) 11/11/22 18:14 MCV 88.3 fl (81-99) 11/11/22 18:14 MCH 26.6 pg (28.0-34.0) L 11/11/22 18:14 MCHC 30.1 g/dL (30.0-36.0) 11/11/22 18:14 RDW 21.6 % (12.1-15.1) H 11/11/22 18:14 Plt Count 279 10^3/cmm (130-400) 11/11/22 18:14 MPV 10.2 fL (7.4-10.4) 11/11/22 18:14 Neut % (Auto) 72.5 % 11/11/22 18:14 Lymph % (Auto) 18.9 % 11/11/22 18:14 [place] % (Auto) 4.7 % 11/11/22 18:14 Eos % (Auto) 2.7 % 11/11/22 18:14 Baso % (Auto) 0.6 % 11/11/22 18:14 Neut # (Auto) 9.13 10^3/uL (1.8-7.7) H 11/11/22 18:14 Lymph # (Auto) 2.4 10^3/uL (0.8-4.8) 11/11/22 18:14 [place] # (Auto) 0.6 10^3/uL (0.2-0.9) 11/11/22 18:14 Eos # (Auto) 0.3 10^3/uL (0.0-0.8) 11/11/22 18:14 Baso # (Auto) 0.1 10^3/uL (0.0-0.1) 11/11/22 18:14 Nucleated RBC % (auto) 0 % 11/11/22 18:14 Nucleated RBCs # 0.0 /100WBC 11/11/22 18:14 Sodium 143 mmol/L (136-145) 11/11/22 18:14 Potassium 5.4 mmol/L (3.5-5.1) H 11/11/22 18:14 Chloride 110 mmol/L (98-107) H 11/11/22 18:14 Carbon Dioxide 20 mmol/L (22-29) L 11/11/22 18:14 Anion Gap 18.4 (5-19) 11/11/22 18:14 BUN 24 mg/dL (8-23) H 11/11/22 18:14 Creatinine 1.1 mg/dL (0.5-0.9) H 11/11/22 18:14 GFR Calculation Not Reportable 11/11/22 18:14 Glucose 149 mg/dL (65-115) H 11/11/22 18:14 Calculated Osmolality 303 mOsm/kg (285-295) H 11/11/22 18:14 Lactic Acid 2.2 mmol/L (0.5-2.2) 11/11/22 18:14 Lactic Acid (Sepsis) 1.3 mmol/L (0.5-2.2) 11/11/22 20:57 Calcium 8.8 mg/dL (8.5-10.5) 11/11/22 18:14 Total Bilirubin 0.9 mg/dL (0.15-1.2) 11/11/22 18:14 AST 29 U/L (0-32) 11/11/22 18:14 ALT 26 U/L (0-33) 11/11/22 18:14 Alkaline Phosphatase 105 U/L (35-105) 11/11/22 18:14 Total Protein 7.2 g/dL (6.6-8.7) 11/11/22 18:14 Albumin 3.5 g/dL (3.5-5.2) 11/11/22 18:14 Globulin 3.7 g/dL (1.3-4.6) 11/11/22 18:14 Lipase 63 U/L (13-60) H 11/11/22 18:14 TSH 4.48 uIU/mL (0.27-4.20) H 11/11/22 18:14 Urine Color Dark yellow (Yellow) 11/11/22 18:07 Urine Appearance Hazy (CLEAR) A 11/11/22 18:07 Urine pH 5 (5-7) 11/11/22 18:07 Ur Specific [place] 1.020 (1.005-1.030) 11/11/22 18:07 Urine Protein Trace (Negative) 11/11/22 18:07 Urine Glucose (UA) 4+ (Normal) H 11/11/22 18:07 Urine Ketones Negative (Negative) 11/11/22 18:07 Urine Blood Neg (Negative) 11/11/22 18:07 Urine Nitrate Negative (Negative) 11/11/22 18:07 Urine Bilirubin 1+ (Negative) H 11/11/22 18:07 Urine Urobilinogen Neg mg/dL (Negative) 11/11/22 18:07 Ur Leukocyte Esterase Negative (Negative) 11/11/22 18:07 Urine RBC None /hpf (0-2) 11/11/22 18:07 Urine WBC 0-4 /hpf (0-5) H 11/11/22 18:07 Ur Squamous Epith Cells 25-40 /hpf (0-5) H 11/11/22 18:07 Amorphous Sediment Not Reportable 11/11/22 18:07 Urine Bacteria 2+ /hpf (NONE) H 11/11/22 18:07 Urine Mucus 1+ /hpf 11/11/22 18:07 Urine Yeast 2+ /hpf H 11/11/22 18:07 Discharge Plan Discharge Patient Disposition: Home Clinical Impression: Diarrhea Condition: Stable Prescriptions: No Action acetaminophen [Tylenol Arthritis Pain] 650 mg tablet extended release 650 - 1,300 mg PO Q12H PRN (Reason: Pain) pantoprazole 40 mg tablet,delayed release (DR/EC) 40 mg PO QAM allopurinol 100 mg tablet 100 mg PO QAM amitriptyline 25 mg tablet 25 mg PO BEDTIME Brilinta 90 mg tablet 90 mg PO BID Qty: 180 3RF nitroglycerin [Nitrostat] 0.4 mg tablet, sublingual 0.4 mg sublingual Q5M PRN (Reason: chest pain) Qty: 25 4RF Rx Instructions: DO NOT EXCEED 3 DOSES PER EPISODE metoprolol tartrate 25 mg tablet 25 mg PO BID@0900,2100 Qty: 120 3RF atorvastatin 80 mg tablet 80 mg PO BEDTIME Qty: 90 3RF albuterol sulfate [ProAir HFA] 90 mcg/actuation Hfa Aerosol Inhaler 2 puff INHALATION Q4H PRN (Reason: Shortness Of Breath) ondansetron 4 mg tablet,disintegrating 4 mg PO Q6H PRN (Reason: nausea and vomiting) Qty: 14 0RF levothyroxine 50 mcg tablet 50 mcg PO BEDTIME gabapentin 300 mg capsule 300 mg PO TID metformin 500 mg tablet extended release 24 hr 500 mg PO BEDTIME budesonide-formoterol [Symbicort] 80-4.5 mcg/actuation HFA aerosol inhaler 1 puff INHALATION BID PRN (Reason: unknown) baclofen 5 mg tablet 5 mg PO TID PRN (Reason: Muscle Pain) Jardiance 10 mg tablet 10 mg PO QAM lisinopril 20 mg tablet See Rx Instructions .ROUTE .COMPLEX Rx Instructions: Take 20mg (1 tab) in AM and 10mg (0.5 tab) in PM aspirin 81 mg tablet,delayed release (DR/EC) 81 mg PO QAM Lantus Solostar U-100 Insulin 100 unit/mL (3 mL) insulin pen 10 unit SUBCUT QAM Qty: 15 0RF Discharge Orders: Discharge ED (Routine); Ordered 11/11/22 Ordered By: Beverley Acharya Referrals: Jenniffer Jenkins MD [Primary Care Provider] - 1-3 days Discharge Diet: Advance as tolerated Discharge Activity: Resume usual activity Patient Instructions: Diarrhea - Adult Coding Level of Care Code ED Behavioral Services Tech for [facility] Carpio
[2022-11-11] MEDS: ondansetron 2 mg/ML SDV 2 mL 4 MG IVP (18:36)
[2022-11-11] MEDS: sodium chloride 0.9% 1,000 ML 999 ML IV ×2 (18:36→20:14)
[2022-11-11 18:40] LABS: Add Urine Microscopic? YES; Bacteria Urine 2+ /hpf; Bilirubin Urine 1+ (Negative); Blood Urine Neg (Negative); Glucose Urine UA 4+ (Normal); Ketones Urine Negative (Negative); Leukocyte Esterase Urine Negative (Negative); Mucus Urine 1+ /hpf; Nitrate Urine Negative (Negative); Protein Urine Trace (Negative); Squamous Epithelial Cell Urine 25-40 /hpf (0-5); Urine Appearance Hazy (CLEAR); Urine Color Dark Yellow (Yellow); Urobilinogen Urine Neg (Negative); WBC Urine 0-4 /hpf (0-5); pH Urine 5 (5-7)
[2022-11-11 18:41] LABS: Add Urine Culture? No
[2022-11-11 18:54] LABS: Alanine Aminotransferase 26 U/L (0-33); Albumin Level 3.5 g/dL (3.5-5.2); Alkaline Phosphatase 105 U/L (35-105); Anion Gap 18.4 (5-19); Aspartate Amino Transferase 29 U/L (0-32); Blood Urea Nitrogen 24 mg/dL (8-23); Calcium 8.8 mg/dL (8.5-10.5); Carbon Dioxide 20 mmol/L (22-29); Chloride 110 mmol/L (98-107); Globulin 3.7 g/dL (1.3-4.6); Glucose 149 mg/dL (65-115); Lipase 63 U/L (13-60); Osmolality Calculated 303 mOsm/kg (285-295); Potassium 5.4 mmol/L (3.5-5.1); Sodium 143 mmol/L (136-145); Total Bilirubin 0.9 mg/dL (0.15-1.2); Total Protein 7.2 g/dL (6.6-8.7)
[2022-11-11 18:55] LABS: Lactic Sepsis W/Reflex 2.2 mmol/L (0.5-2.2)
[2022-11-11 19:00] VITALS: BP 92/51; PULSE 71; RESP 18; O2SAT 97
[2022-11-11 19:32] LABS: Thyroid Stimulating Hormone 4.48 uIU/mL (0.27-4.20)
[2022-11-11 20:13] LABS: Reflex Lactate Order REFLEX LACTIC ORDERD
[2022-11-11 20:15] VITALS: BP 107/62; PULSE 76; RESP 18; O2SAT 96
[2022-11-11] MEDS: diphenoxylate/atropine Tablet 1 TAB PO (21:28)
[2022-11-11 21:29] VITALS: BP 120/70; PULSE 82; RESP 17; O2SAT 99
[2022-11-11 21:34] LABS: Lactic Acid level (Lactate) 1.3 mmol/L (0.5-2.2)
== END 2022-11-11 21:32 | disposition home or self-care (01) ==
PROVIDERS: Emergency Provider Emergency Medicine; PCP Internal Medicine
DX: R19.7 Diarrhea, unspecified (principal); Z79.82 Long term (current) use of aspirin; Z79.4 Long term (current) use of insulin; Z87.891 Personal history of nicotine dependence; I25.10 Atherosclerotic heart disease of native coronary artery without angina pectoris; I25.2 Old myocardial infarction; I10 Essential (primary) hypertension
CPT/HCPCS: 80053; 81001; 83605; 83690; 84443; 85025; 96361; 96374; 99284; J2405; J7030

== ENCOUNTER → 2022-12-02 15:08 | Outpatient (BNVA) | payer MEDICARE, SELFPAY | PROVIDERS: PCP Internal Medicine; Visit Provider Internal Medicine | DX: I25.10 Atherosclerotic heart disease of native coronary artery without angina pectoris (principal); I73.9 Peripheral vascular disease, unspecified; I10 Essential (primary) hypertension; Z87.891 Personal history of nicotine dependence | CPT/HCPCS: 99214 ==

== ENCOUNTER 2022-12-07 13:17 | Outpatient (CLI) | payer MEDICARE, SELFPAY ==
--- NOTE | 2022-12-07 13:26 | US_ITS ---
WS: [id number] US transvaginal [id number] HISTORY: ABDOMINAL X-RAY, ABDOMINAL COMPARISON: CT 10/20/2022 Uterus: 5.7 cm x 4.6 cm x 2.8 cm. Atrophied uterus is normally anteverted. No fibroid or mass. Endometrium: 0.8 cm. Mildly enlarged for postmenopausal female. No increased vascularity no discrete mass. No shadowing from air identified. Right ovary: 3.7 cm x 3.3 cm x 2.5 cm. Normal size ovary. There is a small cystic mass associated wit h the RIGHT ovary measuring 2.8 x 2.2 x 2.1 cm. Left ovary: Not visualized. No adnexal mass. No free fluid in the cul-de-sac. US/US transvaginal [id number] IMPRESSION: 1. Atrophic uterus with no fibroid. 2. Endometrium is mildly enlarged for postmenopausal female 0.8 centimeters. C onsider direct visualization and biopsy to exclude neoplasm. 3. Mildly complex RIGHT ovarian cyst.
== END 2022-12-07 13:18 | disposition home or self-care (01) ==
LOC: RAD 13:19
PROVIDERS: PCP Internal Medicine; Visit Provider Internal Medicine
DX: R93.5 Abnormal findings on diagnostic imaging of other abdominal regions, including retroperitoneum (principal); N85.8 Other specified noninflammatory disorders of uterus; R93.89 Abnormal findings on diagnostic imaging of other specified body structures; N83.291 Other ovarian cyst, right side
CPT/HCPCS: 76830

== ENCOUNTER 2023-01-18 11:57 | Emergency (ER) | payer MEDICARE, MEDICAID, SELFPAY ==
[2023-01-18 12:35] VITALS: BP 66/45; PULSE 66; RESP 14; TEMP 36.5; O2SAT 93; BMI 28.8
--- NOTE | 2023-01-18 12:45 | XRR_ITS ---
PROCEDURE INFORMATION: Exam: XR Chest Exam date and time: 01/18/2023 12:59 PM Age: 77 years old Clinical indication: Cough and dyspnea; Additional info: Dyspnea/cough TECHNIQUE: Imaging protocol: Radiologic exam of the chest. Views: 1 view. COMPARISON: CR XR chest 1V portable [id number] 10/20/2022 2:14 PM FINDINGS: Lungs: Unremarkable. No consolidation. Pleural spaces: Unremarkable. No pleural effusion. No pneumothorax. Heart/Mediastinum: Unremarkable. No cardiomegaly. Bones/joints: Unremarkable. XR/XR chest 1V portable [id number] IMPRESSION: No acute findings.
--- NOTE | 2023-01-18 12:50 | W.ED.WEAKNES ---
HPI - Weakness General: Chief complaint: Weakness Stated complaint: SOB, Dizziness, Blurry vision Time Seen by Provider: 01/18/23 12:45 Source: patient Mode of arrival: EMS History of Present Illness: 77-year-old female presents emergency room complaining of weakness and dizziness shortness of breath. She had a near syncopal episode while she was standing at a store. She became very nauseous but did not vomit was dizzy. She had taken all of her morning medications she is diabetic she states she has had a few loose stools lately but no diarrhea no dysuria urgency or frequency no chest pain or abdominal pain. Generally she is not feeling well but does not have anything specific. She is noted on arrival to be moderately hypotensive. No recent medic easy melena hematemesis coffee-ground emesis MD Complaint: generalized weakness Onset (ago): minute(s) Duration: constant Location: generalized Migration: none Severity: mild Relieving factors: none Exacerbating factors: none Associated symptoms: Reports decreased appetite and nausea; Denies chest pain, chills, confusion, melena, diaphoresis, dysuria, easy bruising, fever(s), headache(s), myalgias, rash, short of breath, syncope or vomiting Review of Systems Const: Denies: fever(s), chills or diaphoresis ENMT: Denies: throat pain, ear or mastoid pain, nasal discharge or nasal congestion Card: Denies: chest pain or syncope Resp: Denies: dyspnea, productive cough or non-productive cough GI: Reports: nausea; Denies: abdominal pain, vomiting or melena : Denies: dysuria, urinary frequency or urinary urgency Musc: Denies: neck pain or back pain Skin/Breast: Denies: rash or pruritus Neuro: Denies: headache(s) or confusion Alfredo/Lymph: Denies: easy bruising PFSH ED PFSH: Medical History Coronary artery disease History of [place] (myocardial infarction) HTN (hypertension) PAD (peripheral artery disease) ST elevation myocardial infarction (STEMI) Surgical History H/O section H/O esophagogastroduodenoscopy (12/19/20) Gastric erosions History of cholecystectomy S/P appendectomy S/P breast biopsy S/P femoral-popliteal bypass surgery S/P PTCA (percutaneous transluminal coronary angioplasty) Status post colonoscopy (12/19/20) Extensive diverticulosis Family History Other CAD (coronary artery disease) Cancer Diabetes Hypertension Stroke Social History Smoking and tobacco status: former smoker Quit status (tobacco): has quit using tobacco Year quit tobacco: 2016 Alcohol intake: never Substance/Drug Use: never Physical Exam Const: GENERAL APPEARANCE: cooperative and comfortable ORIENTATION/CONSCIOUSNESS: Yes awake, Yes oriented to person, Yes oriented to place and Yes oriented to time HENMT: COMMON NORMALS: normocephalic, atraumatic and hearing grossly normal bilaterally HEAD & SCALP: normocephalic and atraumatic Resp: COMMON NORMALS: normal respiratory effort, No retractions, No use of accessory muscles and clear to auscultation bilaterally AUSCULTATION: clear to auscultation bilaterally Cardio: COMMON NORMALS: regular rate, regular rhythm and No murmurs present (Cardio) RATE: regular rate RHYTHM: regular rhythm GI: COMMON NORMALS: Soft to palpation and No hepatosplenomegaly present AUSCULTATION: Yes normoactive bowel sounds PALPATION: Yes Soft to palpation, No Tenderness to palpation present (GI), No Guarding due to palpation present (GI) and Yes No hepatosplenomegaly present Extremity: COMMON NORMALS: normal to inspection, capillary refill normal, no clubbing, cyanosis or edema, no calf tenderness and no pedal edema Neuro: SENSORIUM/ORIENTATION: Yes oriented to person, Yes oriented to place and Yes oriented to time Skin: COMMON NORMALS: no rashes or lesions noted GENERAL SKIN EXAM: no rashes or lesions noted Course Vital Signs: Vital signs: Vital Signs Temperature 97.7 F 01/18/23 12:35 Pulse Rate 64 01/18/23 14:21 Respiratory Rate 19 H 01/18/23 14:21 Blood Pressure 102/64 01/18/23 14:21 Pulse Oximetry 99 01/18/23 14:21 Oxygen Delivery Me thod Room Air 01/18/23 14:21 MDM - Weakness Medical Decision Making UA shows cystitis white count 15 1 patient is awake and alert ambulatory she feels well she would like to go home she was given Rocephin here and discharged home on oral antibiotics return if is worsening problems. Medical Records I reviewed the patient's medical records. Lab Data I reviewed the patient's lab results. 01/18/23 12:55 01/18/23 12:55 Radiology Impressions Chest X-Ray 01/18/23 12:45 IMPRESSION: No acute findings. Laboratory Results WBC 15.1 10^3/uL (4.0-10.0) H 01/18/23 12:55 RBC 4.67 10^6/uL (4.1-5.3) 01/18/23 12:55 Hgb 12.0 g/dL (11.5-15.3) 01/18/23 12:55 Hct 39.7 % (37.0-47.0) 01/18/23 12:55 MCV 85.0 fl (81-99) 01/18/23 12:55 MCH 25.7 pg (28.0-34.0) L 01/18/23 12:55 MCHC 30.2 g/dL (30.0-36.0) 01/18/23 12:55 RDW 18.0 % (12.1-15.1) H 01/18/23 12:55 Plt Count 253 10^3/cmm (130-400) 01/18/23 12:55 MPV 10.1 fL (7.4-10.4) 01/18/23 12:55 Neut % (Auto) 71.3 % 01/18/23 12:55 Lymph % (Auto) 18.9 % 01/18/23 12:55 [place] % (Auto) 8.7 % 01/18/23 12:55 Eos % (Auto) 0.5 % 01/18/23 12:55 Baso % (Auto) 0.3 % 01/18/23 12:55 Neut # (Auto) 10.78 10^3/uL (1.8-7.7) H 01/18/23 12:55 Lymph # (Auto) 2.9 10^3/uL (0.8-4.8) 01/18/23 12:55 [place] # (Auto) 1.3 10^3/uL (0.2-0.9) H 01/18/23 12:55 Eos # (Auto) 0.1 10^3/uL (0.0-0.8) 01/18/23 12:55 Baso # (Auto) 0.1 10^3/uL (0.0-0.1) 01/18/23 12:55 Nucleated RBC % (auto) 0 % 01/18/23 12:55 Nucleated RBCs # 0.0 /100WBC 01/18/23 12:55 Specimen Type Arterial 01/18/23 13:09 Sample Site Brachial, right 01/18/23 13:09 ABG pH 7.43 (7.35-7.45) 01/18/23 13:09 ABG pCO2 33.1 mmHg (35-45) L 01/18/23 13:09 ABG pO2 71.4 mmHg (80.0-100.0) L 01/18/23 13:09 ABG HCO3 21.8 mmol/L (22-26) L 01/18/23 13:09 ABG O2 Saturation 93.6 01/18/23 13:09 ABG Base Excess -2.0 mmol/L (-2.0-2.0) 01/18/23 13:09 [place] Test Pos 01/18/23 13:09 A-a O2 Gradient 4.7 mmHg (5-10) L 01/18/23 13:09 Hematocrit 37.1 % (37-47) 01/18/23 13:09 Hgb O2 Saturation 92.5 % (95-100) L 01/18/23 13:09 Carboxyhemoglobin 0.8 %THgb (0.4-20.1) 01/18/23 13:09 Methemoglobin 0.4 % (0.4-1.5) 01/18/23 13:09 Total Hemoglobin 12.1 g/dL (12-16) 01/18/23 13:09 Sodium 141.0 mmol/L (131-143) 01/18/23 13:09 Potassium 4.8 mmol/L (3.5-5.0) 01/18/23 13:09 Glucose 169.0 mg/dL (70-115) H 01/18/23 13:09 Ionized Calcium 1.2 mmol/L (1.1-1.4) 01/18/23 13:09 O2 Delivery Device Room air 01/18/23 13:09 FiO2 21.0 % 01/18/23 13:09 Workers Compensation Legal Secretary ID Marco Antonioro 01/18/23 13:09 Sodium 137 mmol/L (136-145) 01/18/23 12:55 Potassium 5.1 mmol/L (3.5-5.1) 01/18/23 12:55 Chloride 101 mmol/L (98-107) 01/18/23 12:55 Carbon Dioxide 21 mmol/L (22-29) L 01/18/23 12:55 Anion Gap 20.1 (5-19) H 01/18/23 12:55 BUN 26 mg/dL (8-23) H 01/18/23 12:55 Creatinine 1.4 mg/dL (0.5-0.9) H 01/18/23 12:55 GFR Calculation Not Reportable 01/18/23 12:55 Glucose 168 mg/dL (65-115) H 01/18/23 12:55 POC Glucose 216 mg/dL (70-110) H 01/18/23 12:58 Calculated Osmolality 293 mOsm/kg (285-295) 01/18/23 12:55 Lactic Acid 1.8 mmol/L (0.5-2.2) 01/18/23 12:55 Calcium 8.9 mg/dL (8.5-10.5) 01/18/23 12:55 Total Bilirubin 1.0 mg/dL (0.15-1.2) 01/18/23 12:55 AST 20 U/L (0-32) 01/18/23 12:55 ALT 13 U/L (0-33) 01/18/23 12:55 Alkaline Phosphatase 94 U/L (35-105) 01/18/23 12:55 Total Protein 7.3 g/dL (6.6-8.7) 01/18/23 12:55 Albumin 3.7 g/dL (3.5-5.2) 01/18/23 12:55 Globulin 3.6 g/dL (1.3-4.6) 01/18/23 12:55 Urine Color Yellow (Yellow) 01/18/23 14:19 Urine Appearance Sl cloudy (CLEAR) A 01/18/23 14:19 Urine pH 6 (5-7) 01/18/23 14:19 Ur Specific [place] 1.005 (1.005-1.030) 01/18/23 14:19 Urine Protein Trace (Negative) 01/18/23 14:19 Urine Glucose (UA) 4+ (Normal) H 01/18/23 14:19 Urine Ketones Negative (Negative) 01/18/23 14:19 Urine Blood 2+ (Negative) H 01/18/23 14:19 Urine Nitrate Positive (Negative) H 01/18/23 14:19 Urine Bilirubin 1+ (Negative) H 01/18/23 14:19 Urine Urobilinogen Norm mg/dL (Negative) 01/18/23 14:19 Ur Leukocyte Esterase 2+ (Negative) H 01/18/23 14:19 Urine RBC 0-4 /hpf (0-2) H 01/18/23 14:19 Urine WBC Too numerous to cnt /hpf (0-5) H 01/18/23 14:19 Ur Squamous Epith Cells 5-10 /hpf (0-5) H 01/18/23 14:19 Amorphous Sediment Not Reportable 01/18/23 14:19 Urine Bacteria 2+ /hpf (NONE) H 01/18/23 14:19 Serum Ketones Negative (Negative) 01/18/23 12:55 Discharge Plan Discharge Patient Disposition: Home Clinical Impression: Cystitis Condition: Stable Prescriptions: New Macrobid 100 mg capsule 100 mg PO BID 7 Days Qty: 14 0RF Rx Instructions: must administer with a meal/food Held lisinopril 20 mg tablet See Rx Instructions .ROUTE .COMPLEX Hold Instructions: Resume on 01/26/23. Rx Instructions: Take 20mg (1 tab) in AM and 10mg (0.5 tab) in PM No Action acetaminophen [Tylenol Arthritis Pain] 650 mg tablet extended release 650 - 1,300 mg PO Q12H PRN (Reason: Pain) pantoprazole 40 mg tablet,delayed release (DR/EC) 40 mg PO QAM allopurinol 100 mg tablet 100 mg PO QAM amitriptyline 25 mg tablet 25 mg PO BEDTIME Brilinta 90 mg tablet 90 mg PO BID Qty: 180 3RF nitroglycerin [Nitrostat] 0.4 mg tablet, sublingual 0.4 mg sublingual Q5M PRN (Reason: chest pain) Qty: 25 4RF Rx Instructions: DO NOT EXCEED 3 DOSES PER EPISODE atorvastatin 80 mg tablet 80 mg PO BEDTIME Qty: 90 3RF metoprolol tartrate 25 mg tablet 25 mg PO BID@0900,2100 Qty: 120 3RF albuterol sulfate [ProAir HFA] 90 mcg/actuation Hfa Aerosol Inhaler 2 puff INHALATION Q4H PRN (Reason: Shortness Of Breath) ondansetron 4 mg tablet,disintegrating 4 mg PO Q6H PRN (Reason: nausea and vomiting) Qty: 14 0RF levothyroxine 50 mcg tablet 50 mcg PO BEDTIME gabapentin 300 mg capsule 300 mg PO TID metformin 500 mg tablet extended release 24 hr 500 mg PO BEDTIME budesonide-formoterol [Symbicort] 80-4.5 mcg/actuation HFA aerosol inhaler 1 puff INHALATION BID PRN (Reason: unknown) baclofen 5 mg tablet 5 mg PO TID PRN (Reason: Muscle Pain) Jardiance 10 mg tablet 10 mg PO QAM aspirin 81 mg tablet,delayed release (DR/EC) 81 mg PO QAM Lantus Solostar U-100 Insulin 100 unit/mL (3 mL) insulin pen 10 unit SUBCUT QAM Qty: 15 0RF Discharge Orders: Discharge ED (Routine); Ordered 01/18/23 Ordered By: Héctor Marsh Referrals: Jenniffer Jenkins MD [Primary Care Provider] - Discharge Diet: Usual diet Discharge Activity: Increase activity as tolerated Patient Instructions: Opioid Safety, Pain Management Activity Restrictions/Additional Instructions: Hold lisinopril x1 week. Started the oral antibiotic tomorrow. Coding Level of Care Code ED Sales Expert for Param Carpio
[2023-01-18 13:04] LABS: Glucose Point of Care 216 mg/dL (70-110)
[2023-01-18 13:08] LABS: Basophils # 0.1 10^3/uL (0.0-0.1); Basophils % 0.3 %; Eosinophils # 0.1 10^3/uL (0.0-0.8); Eosinophils % 0.5 %; Hematocrit 39.7 % (37.0-47.0); Lymphocytes # 2.9 10^3/uL (0.8-4.8); Lymphocytes % 18.9 %; Mean Corpuscular HGB Conc 30.2 g/dL (30.0-36.0); Mean Corpuscular Hemoglobin 25.7 pg (28.0-34.0); Mean Platelet Volume 10.1 fL (7.4-10.4); Monocytes # 1.3 10^3/uL (0.2-0.9); Monocytes % 8.7 %; Neutrophils # 10.78 10^3/uL (1.8-7.7); Neutrophils % 71.3 %; Nucleated Red Blood Cells % 0 %; Platelet Count 253 10^3/cmm (130-400); Red Blood Count 4.67 10^6/uL (4.1-5.3); White Blood Count 15.1 10^3/uL (4.0-10.0)
[2023-01-18 13:13] LABS: Ketone (Acetest) Serum Negative (Negative)
[2023-01-18] MEDS: sodium chloride 0.9% 1,000 ML 999 ML IV (13:15)
[2023-01-18 13:19] LABS: Alanine Aminotransferase 13 U/L (0-33); Albumin Level 3.7 g/dL (3.5-5.2); Alkaline Phosphatase 94 U/L (35-105); Anion Gap 20.1 (5-19); Aspartate Amino Transferase 20 U/L (0-32); Blood Urea Nitrogen 26 mg/dL (8-23); Calcium 8.9 mg/dL (8.5-10.5); Carbon Dioxide 21 mmol/L (22-29); Chloride 101 mmol/L (98-107); Globulin 3.6 g/dL (1.3-4.6); Glucose 168 mg/dL (65-115); Osmolality Calculated 293 mOsm/kg (285-295); Potassium 5.1 mmol/L (3.5-5.1); Sodium 137 mmol/L (136-145); Total Protein 7.3 g/dL (6.6-8.7)
[2023-01-18 13:20] LABS: Lactic Sepsis W/Reflex 1.8 mmol/L (0.5-2.2)
[2023-01-18 13:21] LABS: ABG PCO2 33.1 mmHg (35-45); ABG PH Result 7.43 (7.35-7.45); Alveolar-Arterial Oxygen Gradi 4.7 mmHg (5-10); Arterial Blood Gas Hematocrit 37.1 % (37-47); Blood Gas Allen Test Pos; Blood Gas Sample Type Arterial; Carboxyhemoglobin 0.8 %THgb (0.4-20.1); HCO3 ABG 21.8 mmol/L (22-26); HGB O2 Sat 92.5 % (95-100); Ionized Calcium Level - ABG 1.2 mmol/L (1.1-1.4); Methemoglobin 0.4 % (0.4-1.5); Oxygen Saturation ABG 93.6; PO2 ABG 71.4 mmHg (80.0-100.0); Potassium Level - ABG 4.8 mmol/L (3.5-5.0); Total Hemoglobin 12.1 g/dL (12-16)
[2023-01-18 13:22] LABS: Blood Gas Operator Identificat MONRO; Blood Gas Sample Site Brachial, right; Oxygen Device ROOM AIR
--- NOTE | 2023-01-18 14:20 | ECG_ITS ---
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 Measurements Intervals [place] Rate: 63 P: 62 MA: 186 QRS: 6 QRSD: 89 T: -8 QT: 405 QTc: 415 Interpretive Statements SINUS RHYTHM WITH OCCASIONAL ECTOPIC PREMATURE COMPLEXES POSSIBLE INFERIOR MYOCARDIAL INFARCTION , OF INDETERMINATE AGE [30 ms Q WAVE IN II/aVF] Compared to ECG 10/20/2022 21:39:29 Myocardial infarct finding now present Sinus arrhythmia no longer present Electronically Signed On 01-18-2023 18:40:49 CDT by Meliton Ballard M.D. [id number]
[2023-01-18 14:21] VITALS: BP 102/64; PULSE 64; RESP 19; O2SAT 99
[2023-01-18 14:38] LABS: Add Urine Microscopic? YES; Bilirubin Urine 1+ (Negative); Blood Urine 2+ (Negative); Glucose Urine UA 4+ (Normal); Ketones Urine Negative (Negative); Leukocyte Esterase Urine 2+ (Negative); Nitrate Urine Positive (Negative); Protein Urine Trace (Negative); Specific Gravity, Urine 1.005 (1.005-1.030); Urine Color Yellow (Yellow); Urobilinogen Urine Norm (Negative); pH Urine 6 (5-7)
[2023-01-18 14:39] LABS: Add Urine Culture? Yes; Bacteria Urine 2+ /hpf; RBC Urine 0-4 /hpf (0-2); WBC Urine TOO NUMEROUS TO CNT /hpf (0-5)
[2023-01-18] MEDS: cefTRIAXone 1,000 MG in water for injection-sterile 2.1 ML 2.1 MG IM (15:16)
== END 2023-01-18 15:32 | disposition home or self-care (01) ==
PROVIDERS: Emergency Provider Family Medicine; PCP Internal Medicine
DX: N30.90 Cystitis, unspecified without hematuria (principal); I25.10 Atherosclerotic heart disease of native coronary artery without angina pectoris; I10 Essential (primary) hypertension; I25.2 Old myocardial infarction; Z87.891 Personal history of nicotine dependence; Z79.899 Other long term (current) drug therapy
CPT/HCPCS: 36415; 36416; 36600; 71045; 80051; 80053; 81001; 82009; 82330; 82805; 82962; 83605; 85025; 87077; 87086; 87186; 93005; 96372; 99285; J0696; J7030

== ENCOUNTER → 2023-02-08 10:20 | Outpatient (BNVA) | payer SELFPAY | PROVIDERS: PCP Internal Medicine; Visit Provider Obstetrics & Gynecology | DX: N83.201 Unspecified ovarian cyst, right side (principal) | CPT/HCPCS: 76830 ==

== ENCOUNTER 2023-03-25 10:36 | Outpatient (CLI) | payer MEDICARE, MEDICAID, SELFPAY ==
--- NOTE | 2023-03-25 10:44 | MM_ITS ---
WS: [id number] BILATERAL SCREENING DIGITAL TOMOSYNTHESIS MAMMOGRAM WITH CAD HISTORY: SCREENING COMPARISON: 11/28/2021, 05/22/2020 and 03/30/2019 Bilateral CC and MLO views with tomosynthesis and synthetic mammography submitted. Computer aided det ection analyzed. Breast composition: There are scattered areas of fibroglandular density. No suspicious masses, microc alcifications or architectural distortion. Patient has known bilateral inverted nipples. IMPRESSION: MM/[place] [id number] BI-RADS: 2-Benign FOLLOW UP: 1 Year Follow-up
== END 2023-03-25 10:37 | disposition home or self-care (01) ==
PROVIDERS: PCP Internal Medicine; Visit Provider Internal Medicine
DX: Z12.31 Encounter for screening mammogram for malignant neoplasm of breast (principal)
CPT/HCPCS: 77063; 77067

== ENCOUNTER → 2023-04-20 08:47 | Outpatient (BNVA) | payer MEDICARE, MEDICAID, SELFPAY | PROVIDERS: PCP Internal Medicine; Visit Provider Obstetrics & Gynecology | DX: N83.291 Other ovarian cyst, right side (principal) | CPT/HCPCS: 76830 ==

== ENCOUNTER → 2023-06-02 09:22 | Outpatient (BNVA) | payer MEDICARE, MEDICAID, SELFPAY | PROVIDERS: PCP Internal Medicine; Visit Provider Nurse Practitioner Women's Health | DX: Z01.818 Encounter for other preprocedural examination (principal); R93.89 Abnormal findings on diagnostic imaging of other specified body structures | CPT/HCPCS: 81025; 88305 ==

== ENCOUNTER → 2023-08-12 13:55 | Outpatient (BNVA) | payer MEDICARE, MEDICAID, SELFPAY | PROVIDERS: PCP Internal Medicine; Visit Provider Internal Medicine | DX: I25.10 Atherosclerotic heart disease of native coronary artery without angina pectoris (principal); I10 Essential (primary) hypertension; I73.9 Peripheral vascular disease, unspecified; Z87.891 Personal history of nicotine dependence | CPT/HCPCS: 36415; 80048; 83880; 85025; 99214 ==

== ENCOUNTER 2023-08-16 19:36 | Observation (INO) | payer MEDICARE, SELFPAY ==
[2023-08-16] VITALS (9 sets, daily range): BP systolic 103–125; BP diastolic 47–69; PULSE 62–80; RESP 15–23; TEMP 36.6; O2SAT 93–99; BMI 31.0
--- NOTE | 2023-08-16 19:42 | XRR_ITS ---
PROCEDURE INFORMATION: Exam: XR Chest Exam date and time: 08/16/2023 7:58 PM Age: 78 years old Clinical indication: Shortness of breath; Additional info: Weakness TECHNIQUE: Imaging protocol: Radiologic exam of the chest. Views: 1 view. COMPARISON: CR XR chest 1V portable [id number] 01/18/2023 12:59 PM FINDINGS: Lungs: Lungs are clear bilaterally. Pleural spaces: No pleural effusion. No pneumothorax. Heart/Mediastinum: Stable mild enlargement of the cardiac silhouette. Mediastinal contours are unremarkable. Vasculature: Stable vascular calcifications in the aorta. Bones/joints: Unremarkable for age. XR/XR chest 1V portable [id number] IMPRESSION: 1. No acute cardiopulmonary process. 2. Incidental/nonacute findings are listed in the report.
--- NOTE | 2023-08-16 19:43 | ECG_ITS ---
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 Measurements Intervals [place] Rate: 73 P: 51 HI: 155 QRS: 19 QRSD: 82 T: 23 QT: 367 QTc: 406 Interpretive Statements SINUS RHYTHM LOW QRS VOLTAGE IN PRECORDIAL LEADS [QRS DEFLECTION < 1.0 mV IN CHEST LEADS] Compared to ECG 01/18/2023 14:20:25 Low QRS voltage now present Myocardial infarct finding no longer present Electronically Signed On 08-17-2023 18:33:12 PODIATRIST by Rashaad Jensen M.D. [id number]
[2023-08-16] MEDS: lidocaine 2% viscous 15 ML, aluminum-mag hydrox-simethicon 30 ML, sucralfate oral liq 1 GM PO (20:49)
--- NOTE | 2023-08-16 20:50 | ED_ITS ---
HPI - Chest Pain 2 General: Chief Complaint: Chest Pain Stated Complaint: sob, chest burning left arm pain Time Seen by Provider: 08/16/23 20:21 Source: patient Mode of arrival: ambulatory Limitations: no limitations History of Present Illness: 78-year-old female states she has been h aving some chest pain throughout the day states some burning sensation starts her abdomen and goes up to her chest. She denies any worsening improving factors denies any vomiting denies any dyspnea she denies any cough or fever. Associated symptoms: Reports abdominal pain; Deny dyspnea, fever(s), nausea or vomiting Review of Systems 2 Const: Denies: fever(s), chills, body aches or change in appetite ENMT: Denies: throat pain or dental pain Card: Reports: chest pain Resp: Denies: dyspnea GI: Reports: abdominal pain; Denies: nausea, vomiting or diarrhea Musc: Denies: neck pain or back pain Skin/Breast: Denies: rash Neuro: Denies: headache(s) PFSH ED 2 PFSH: Medical History ST elevation myocardial infarction (STEMI) History of [place] (myocardial infarction) Coronary artery disease PAD (peripheral artery disease) HTN (hypertension) Surgical History H/O esophagogastroduodenoscopy (12/19/20) Gastric erosions Status post colonoscopy (12/19/20) Extensive diverticulosis H/O section S/P breast biopsy S/P PTCA (percutaneous transluminal coronary angioplasty) S/P appendectomy History of cholecystectomy S/P femoral-popliteal bypass surgery Family History Other CAD (coronary artery disease) Cancer Diabetes Hypertension Stroke Social History Smoking and tobacco/nicotine status: former use of tobacco/nicotine Quit status (tobacco/nicotine): has quit using Year quit tobacco: 2016 Alcohol intake: never Substance/Drug Use: never Physical Exam 2 Const: COMMON NORMALS: no acute distress, patient oriented x3 and healthy appearing HENMT: COMMON NORMALS: normocephalic and atraumatic HEAD & SCALP: n ormocephalic and atraumatic Neck/C-Spine: COMMON NORMALS: full ROM and supple Chest: COMMONS NORMALS: normal inspection of the chest Resp: COMMON NORMALS: normal respiratory effort, No retractions, No use of accessory muscles and clear to auscultation bilaterally AUSCULTATION: clear to auscultation bilaterally Cardio: COMMON NORMALS: regular rate, regular rhythm and No murmurs present (Cardio) RATE: regular rate RHYTHM: regular rhythm GI: COMMON NORMALS: Normal to inspection, nondistended, normoactive bowel sounds present, Soft to palpation, non-tender and no masses PALPATION: Yes Soft to palpation Extremity: COMMON NORMALS: normal to inspection and full ROM Neuro: COMMON NORMALS: patient oriented x3, moves all extremities and no focal motor deficits Psych: COMMON NORMALS: mental status grossly normal, Normal thought process present and cooperative THOUGHT PROCESS: Normal thought process present Skin: COMMON NORMALS: no rashes or lesions noted and no wounds GENERAL SKIN EXAM: no rashes or lesions noted Course 2 Vital Signs: Vital signs: Vital Signs Temperature 97.9 F 08/16/23 19:37 Pulse Rate 62 08/16/23 21:50 Respiratory Rate 20 H 08/16/23 21:50 Blood Pressure 120/62 08/16/23 21:50 Pulse Oximetry 98 08/16/23 21:50 Oxygen Delivery Me thod Room Air 08/16/23 21:50 MDM - Chest Pain Medical Decision Making Patient presents here with chest pain her troponins here are normal she is found to be hyperkalemic I did recheck her potassium and it is elevated she has no EKG findings we will give her insulin and D50 spoke to the hospitalist will admit to the ICU her renal function here is only mildly elevated. Medical Records I reviewed the patient's medical records. Lab Data I reviewed the patient's lab results. 08/16/23 20:40 08/16/23 21:35 Radiology Impressions Chest X-Ray 08/16/23 19:42 IMPRESSION: 1. No acute cardiopulmonary process. 2. Incidental/nonacute findings are listed in the report. Laboratory Results WBC 13.78 10^3/uL (3.29-11.43) H 08/16/23 20:40 RBC 4.44 10^6/uL (3.85-5.65) 08/16/23 20:40 Hgb 10.40 g/dL (11.27-16.99) L 08/16/23 20:40 Hct 36.4 % (36-47) 08/16/23 20:40 MCV 82.0 fl (85-98) L 08/16/23 20:40 MCH 23.4 pg (27-33) L 08/16/23 20:40 MCHC 28.6 g/dL (30-55) L 08/16/23 20:40 RDW 18.3 % (12.1-15.1) H 08/16/23 20:40 Plt Count 359 10^3/cmm (157-399) 08/16/23 20:40 MPV 10.1 fL (7.4-10.4) 08/16/23 20:40 Neut % (Auto) 75.0 % 08/16/23 20:40 Lymph % (Auto) 16.4 % 08/16/23 20:40 [place] % (Auto) 5.8 % 08/16/23 20:40 Eos % (Auto) 1.9 % 08/16/23 20:40 Baso % (Auto) 0.5 % 08/16/23 20:40 Neut # (Auto) 10.34 10^3/uL (1.8-7.7) H 08/16/23 20:40 Lymph # (Auto) 2.3 10^3/uL (0.8-4.8) 08/16/23 20:40 [place] # (Auto) 0.8 10^3/uL (0.2-0.9) 08/16/23 20:40 Eos # (Auto) 0.3 10^3/uL (0.0-0.8) 08/16/23 20:40 Baso # (Auto) 0.1 10^3/uL (0.0-0.1) 08/16/23 20:40 Nucleated RBC % (auto) 0.1 % 08/16/23 20:40 Nucleated RBCs # 0.0 /100WBC 08/16/23 20:40 PT 13.70 SECONDS (12.1-14.9) 08/16/23 20:40 INR 1.02 (0.8-1.2) 08/16/23 20:40 Sodium 140 mmol/L (136-145) 08/16/23 20:40 Potassium 7.3 mmol/L (3.5-5.1) H* 08/16/23 21:35 Chloride 106 mmol/L (98-107) 08/16/23 20:40 Carbon Dioxide 21 mmol/L (22-29) L 08/16/23 20:40 Anion Gap 19.7 (5-19) H 08/16/23 20:40 BUN 31 mg/dL (8-23) H 08/16/23 20:40 Creatinine 1.5 mg/dL (0.5-0.9) H 08/16/23 20:40 GFR Calculation Not Reportable 08/16/23 20:40 Glucose 155 mg/dL (65-115) H 08/16/23 20:40 POC Glucose 128 mg/dL (70-110) H 08/16/23 22:01 Calculated Osmolality 300 mOsm/kg (285-295) H 08/16/23 20:40 Calcium 9.4 mg/dL (8.5-10.5) 08/16/23 20:40 Total Bilirubin 0.8 mg/dL (0.15-1.2) 08/16/23 20:40 AST 24 U/L (0-32) 08/16/23 20:40 ALT 15 U/L (0-33) 08/16/23 20:40 Alkaline Phosphatase 117 U/L (35-105) H 08/16/23 20:40 Troponin T Baseline 15 ng/L (0-10) H 08/16/23 20:40 Troponin T 120 Minute 12.63 ng/L (0-10) H 08/16/23 21:35 Delta Troponin T -2.37 ABS# (0-10) L 08/16/23 21:35 NT-Pro-B Natriuret Pep 241 pg/mL (0-450) 08/16/23 20:40 Total Protein 7.8 g/dL (6.6-8.7) 08/16/23 20:40 Albumin 4.0 g/dL (3.5-5.2) 08/16/23 20:40 Globulin 3.8 g/dL (1.3-4.6) 08/16/23 20:40 TSH 6.55 uIU/mL (0.27-4.20) H 08/16/23 20:40 All radiology interpretation(s) finalized by discharge EKG Data EKG 1: I personally reviewed and interpreted this EKG as follows: EKG interpretation date: 08/16/23 EKG interpretation time: 19:49 Interpretation: nsr hr [address] or t wave abnormalities qrs 82 qtc 393 EKG 2: I personally reviewed and interpreted this EKG as follows: EKG interpretation date: 08/16/23 EKG interpretation time: 21:47 Interpretation: nsr hr [address] or t wave abnormalities qrs 84 qtc 376 Critical Care Time 2 Critical Care Time: Critical Care Time: Yes Total Critical Care Time: 40 Attestation: The high probability of a clinically significant, sudden or life threatening deterioration of the patient's cv system(s) required my full and direct attention, intervention and personal management. The critical care time is as shown. This time is in addition to time spent performing any reported procedures but includes the following: [x] Data and vital sign review and interpretation [x] Patient assessment, examination and intervention [x] Documentation [x] Medication orders and management Discharge Plan Discharge Patient Disposition: Admitted As Inpatient Clinical Impression: Chest pain, Hyperkalemia Condition: Stable Prescriptions: No Action acetaminophen [Tylenol Arthritis Pain] 650 mg tablet extended release 650 - 1,300 mg PO Q12H PRN (Reason: Pain) pantoprazole 40 mg tablet,delayed release (DR/EC) 40 mg PO QAM allopurinol 100 mg tablet 100 mg PO QAM amitriptyline 25 mg tablet 25 mg PO BEDTIME Brilinta 90 mg tablet 90 mg PO BID Qty: 180 3RF nitroglycerin [Nitrostat] 0.4 mg tablet, sublingual 0.4 mg sublingual Q5M PRN (Reason: chest pain) Qty: 25 4RF Rx Instructions: DO NOT EXCEED 3 DOSES PER EPISODE atorvastatin 80 mg tablet 80 mg PO BEDTIME Qty: 90 3RF metoprolol tartrate 25 mg tablet 25 mg PO BID@0900,2100 Qty: 120 3RF albuterol sulfate [ProAir HFA] 90 mcg/actuation Hfa Aerosol Inhaler 2 puff INHALATION Q4H PRN (Reason: Shortness Of Breath) ondansetron 4 mg tablet,disintegrating 4 mg PO Q6H PRN (Reason: nausea and vomiting) Qty: 14 0RF levothyroxine 50 mcg tablet 50 mcg PO BEDTIME gabapentin 300 mg capsule 300 mg PO TID metformin 500 mg tablet extended release 24 hr 500 mg PO BEDTIME budesonide-formoterol [Symbicort] 80-4.5 mcg/actuation HFA aerosol inhaler 1 puff INHALATION BID PRN (Reason: unknown) baclofen 5 mg tablet 5 mg PO TID PRN (Reason: Muscle Pain) Jardiance 10 mg tablet 10 mg PO QAM lisinopril 20 mg tablet See Rx Instructions .ROUTE .COMPLEX Hold Instructions: Resume on 01/26/23. Rx Instructions: Take 20mg (1 tab) in AM and 10mg (0.5 tab) in PM aspirin 81 mg tablet,delayed release (DR/EC) 81 mg PO QAM Lantus Solostar U-100 Insulin 100 unit/mL (3 mL) insulin pen 10 unit SUBCUT QAM Qty: 15 0RF Referrals: Jenniffer Jenkins MD [Primary Care Provider] - Coding Level of Care Code ED Fitness/Wellness Director for Chg Shirin
[2023-08-16 20:59] LABS: Basophils # 0.1 10^3/uL (0.0-0.1); Basophils % 0.5 %; Eosinophils # 0.3 10^3/uL (0.0-0.8); Eosinophils % 1.9 %; Hematocrit 36.4 % (36-47); Lymphocytes # 2.3 10^3/uL (0.8-4.8); Lymphocytes % 16.4 %; Mean Corpuscular HGB Conc 28.6 g/dL (30-55); Mean Corpuscular Hemoglobin 23.4 pg (27-33); Mean Platelet Volume 10.1 fL (7.4-10.4); Monocytes # 0.8 10^3/uL (0.2-0.9); Monocytes % 5.8 %; Neutrophils # 10.34 10^3/uL (1.8-7.7); Nucleated Red Blood Cells % 0.1 %; Platelet Count 359 10^3/cmm (157-399); Red Blood Count 4.44 10^6/uL (3.85-5.65); Red Cell Distribution Width 18.3 % (12.1-15.1); White Blood Count 13.78 10^3/uL (3.29-11.43)
[2023-08-16 21:10] LABS: INR 1.02 (0.8-1.2)
[2023-08-16 21:18] LABS: Troponin(5th) Baseline 15 ng/L (0-10)
[2023-08-16 21:30] LABS: Alanine Aminotransferase 15 U/L (0-33); Alkaline Phosphatase 117 U/L (35-105); Anion Gap 19.7 (5-19); Aspartate Amino Transferase 24 U/L (0-32); Blood Urea Nitrogen 31 mg/dL (8-23); Calcium 9.4 mg/dL (8.5-10.5); Carbon Dioxide 21 mmol/L (22-29); Chloride 106 mmol/L (98-107); Globulin 3.8 g/dL (1.3-4.6); Glucose 155 mg/dL (65-115); NT Pro B Type Natriuretic Pept 241 pg/mL (0-450); Osmolality Calculated 300 mOsm/kg (285-295); Sodium 140 mmol/L (136-145); Thyroid Stimulating Hormone 6.55 uIU/mL (0.27-4.20); Total Bilirubin 0.8 mg/dL (0.15-1.2); Total Protein 7.8 g/dL (6.6-8.7)
[2023-08-16 21:33] LABS: Potassium 6.7 mmol/L (3.5-5.1)
[2023-08-16] MEDS: sodium chloride 0.9% 1,000 ML 999 ML IV (21:42)
--- NOTE | 2023-08-16 21:47 | ECG_ITS ---
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 Measurements Intervals [place] Rate: 60 P: 64 MI: 170 QRS: 43 QRSD: 84 T: 38 QT: 376 QTc: 376 Interpretive Statements SINUS RHYTHM LOW QRS VOLTAGE IN PRECORDIAL LEADS [QRS DEFLECTION < 1.0 mV IN CHEST LEADS] Compared to ECG 08/16/2023 19:49:29 No significant changes Electronically Signed On 08-17-2023 18:34:36 COTTON WRINGER by Rashaad Jensen M.D. [email or web address] care [id number]
[2023-08-16 21:58] LABS: Troponin 5 2HR 12.63 ng/L (0-10)
[2023-08-16 22:00] LABS: Troponin 5 2HR Delta -2.37 ABS# (0-10)
[2023-08-16 22:03] LABS: Glucose Point of Care 128 mg/dL (70-110)
[2023-08-16 22:10] LABS: Potassium 7.3 mmol/L (3.5-5.1)
[2023-08-16] MEDS: insulin regular-human 100 units/1 mL 10 UNIT IVP (22:40)
[2023-08-16] MEDS: calcium gluconate 0.1 gm/mL 10% SDV 10mL 1 GM IVP (22:40)
[2023-08-16] MEDS: dextrose 50% syringe 50 mL IVP (22:40)
--- NOTE | 2023-08-16 23:42 | P.HP_ITS ---
Providers/Chief Complaint 2 Admitting Physician: Killian Bates MD Primary Care Provider: Jenniffer Jenkins MD Chief Complaint: sob, chest burning left arm pain History of Present Illness Capri Tobar is a 78 year old female with a past medical history of CAD history of multiple stent placements, on aspirin and Brilinta, type 2 diabetes mellitus, insulin-dependent, peripheral vascular disease, hypertension, who presents to [facility] due to atypical chest pain. Patient tells me that this evening she was at LD when she started to develop pain in her chest that radiated to her right jaw, down to the right arm, down to her back, she felt weak and tired, so she came to [facility] for evaluation, in the ER she was found to have potassium of 7.3, EKG no acute ST-T wave changes, baseline troponin 15, currently chest pain-free, she has been given insulin, D50, calcium gluconate,, she does report recent shortness of breath Review of Systems 2 Const: Reports: fatigue and malaise; Denies: fever(s) Card: Reports: chest pain Resp: Reports: dyspnea GI: Denies: abdominal pain Medications/Allergies Home Medications Medication Instructions Recorded Confirmed Last Taken Type allopurinol 100 mg tablet 100 mg PO QAM 09/08/19 08/12/23 10/19/22 History amitriptyline 25 mg tablet 25 mg PO BEDTIME 09/08/19 08/12/23 10/19/22 History pantoprazole 40 mg tablet,delayed 40 mg PO QAM 09/08/19 08/12/23 10/19/22 History release acetaminophen 650 mg 650 - 1,300 mg PO Q12H PRN Pain 07/30/20 08/12/23 10/20/22 History tablet,extended release (Tylenol Arthritis Pain) albuterol sulfate 90 mcg/actuation 2 puff inhalation Q4H PRN 10/04/20 08/12/23 12/17/20 History aerosol inhaler (ProAir HFA) Shortness Of Breath nitroglycerin 0.4 mg sublingual 0.4 mg sublingual Q5M PRN chest 04/28/21 08/12/23 Unknown Rx tablet (Nitrostat) pain #25 tabs ondansetron 4 mg disintegrating 4 mg PO Q6H PRN nausea and 05/05/21 08/12/23 Unknown Rx tablet vomiting #14 tabs baclofen 5 mg tablet 5 mg PO TID PRN Muscle Pain 05/23/21 08/12/23 10/20/22 History budesonide-formoterol HFA 80 1 puff inhalation BID PRN unknown 05/23/21 08/12/23 Unknown History mcg-4.5 mcg/actuation aerosol inhaler (Symbicort) gabapentin 300 mg capsule 300 mg PO TID 05/23/21 08/12/23 10/20/22 History levothyroxine 50 mcg tablet 50 mcg PO BEDTIME 05/23/21 08/12/23 10/19/22 History metformin 500 mg tablet,extended 500 mg PO BEDTIME 05/23/21 08/12/23 10/19/22 History release 24 hr ticagrelor 90 mg tablet (Brilinta) 90 mg PO BID #180 tabs 08/27/21 08/12/23 10/19/22 Rx aspirin 81 mg tablet,delayed 81 mg PO QAM 10/20/22 08/12/23 10/19/22 History release empagliflozin 10 mg tablet 10 mg PO QAM 10/20/22 08/12/23 10/19/22 History (Jardiance) lisinopril 20 mg tablet See Rx Instructions .Route .COMPLEX 10/20/22 08/12/23 10/19/22 History insulin glargine 100 unit/mL (3 10 unit (0.1 mL) SUBCUT QAM #15 mL 10/22/22 08/12/23 Unknown Rx mL) subcutaneous pen (Lantus Solostar U-100 Insulin) atorvastatin 80 mg tablet 80 mg PO BEDTIME #90 tabs 10/28/22 08/12/23 Unknown Rx metoprolol tartrate 25 mg tablet 25 mg PO BID@0900,2100 #120 tabs 11/27/22 08/12/23 Unknown Rx Allergies Allergy/AdvReac Type Severity Reaction Status Date / Time codeine Allergy Unknown Unknown Verified 08/16/23 19:50 tetanus and diphtheria Allergy Unknown Verified 08/16/23 19:50 toxoids Tetanus Vaccines and Toxoid Allergy Unknown Verified 08/16/23 19:50 PFSH Acute 2 PFSH: Medical History ST elevation myocardial infarction (STEMI) History of ME (myocardial infarction) Coronary artery disease PAD (peripheral artery disease) HTN (hypertension) Surgical History H/O esophagogastroduodenoscopy (12/19/20) Gastric erosions Status post colonoscopy (12/19/20) Extensive diverticulosis H/O section S/P breast biopsy S/P PTCA (percutaneous transluminal coronary angioplasty) S/P appendectomy History of cholecystectomy S/P femoral-popliteal bypass surgery Family History Other CAD (coronary artery disease) Cancer Diabetes Hypertension Stroke Social History Smoking and tobacco/nicotine status: former use of tobacco/nicotine Quit status (tobacco/nicotine): has quit using Year quit tobacco: 2016 Alcohol intake: never Substance/Drug Use: never Vitals/I&O/Wt Last Vital Signs Temp 97.9 F 08/16/23 19:37 Pulse 62 08/16/23 21:50 Resp 20 H 08/16/23 21:50 BP 120/62 08/16/23 21:50 Pulse Ox 98 08/16/23 21:50 O2 Del Method Room Air 08/16/23 21:50 Weight last 48 hrs Weight 78.471 kg Physical Exam 2 Const: COMMON NORMALS: no acute distress and patient oriented x3 HENMT: COMMON NORMALS: normocephalic HEAD & SCALP: normocephalic Eye: COMMON NORMALS: Equal, round and reactive pupils present and EOMs intact bilaterally Resp: COMMON NORMALS: normal respiratory effort, No retractions, No use of accessory muscles and clear to auscultation bilaterally AUSCULTATION: clear to auscultation bilaterally Cardio: COMMON NORMALS: regular rate, regular rhythm, S1 normal heart sound present and S2 normal heart sound present RATE: regular rate RHYTHM: r egular rhythm HEART SOUNDS: S1 normal heart sound present and S2 normal heart sound present GI: COMMON NORMALS: Normal to inspection, nondistended, normoactive bowel sounds present, Soft to palpation and non-tender Extremity: COMMON NORMALS: no calf tenderness and no pedal edema Neuro: COMMON NORMALS: patient oriented x3, CN's II-XII intact bilaterally and moves all extremities Psych: COMMON NORMALS: mental status grossly normal Data 08/16/23 20:40 08/16/23 21:35 A&P Assessment and plan (1) HTN (hypertension): Qualifiers: Hypertension type: essential hypertension Qualified Code(s): I10 - Essential (primary) hypertension (2) Coronary artery disease: Qualifiers: Coronary Disease-Associated Artery/Lesion type: [place] artery [place] vs. transplanted heart: [place] heart Associated angina: without angina Qualified Code(s): I25.10 - Atherosclerotic heart disease of [place] coronary artery without angina pectoris (3) Coronary stent thrombosis: (4) Chest pain: (5) Hyperkalemia: (6) Atypical chest pain: Plan Atypical chest pain -History of CAD -Serial EKGs, serial EKGs, telemetry monitoring, cardiac echo -Aspirin, statin, Brilinta Hyperkalemia -Has received insulin, D50, calcium gluconate -Kayexalate -His ICU level monitoring -Telemetry monitoring -BMP every 4 hours -Etiology uncertain, does have a creatinine of 1.5, will order cortisol levels, denies being on spironolactone, denies taking potassium supplementation, denies any falls no injuries, anion gap 19.7, bicarb 21, no new medications Patient requires hospitalization for atypical chest pain, hyperkalemia Attestations 2 Medical Necessity Statement*: Patient requires hospitalization for atypical chest pain, hyperkalemia, outpatient with observation Diagnoses Essential hypertension I10 Hypertension type: essential hypertension Coronary artery disease involving [place] coronary artery of [place] heart without angina pectoris I25.10 Coronary Disease-Associated Artery/Lesion type: [place] artery [place] vs. transplanted heart: [place] heart Associated angina: without angina Coronary stent thrombosis T82.867A Chest pain R07.9 Hyperkalemia E87.5 Atypical chest pain R07.89
[2023-08-17] VITALS (68 sets, daily range): BP systolic 95–138; BP diastolic 46–108; PULSE 66–102; RESP 15–28; TEMP 36.5–37.2; O2SAT 85–99; BMI 31.0
[2023-08-17] MEDS: sodium polystyrene sulfonate 15 gm/60 mL Btl PO ×2 (00:09→05:49)
[2023-08-17] MEDS: enoxaparin 40 mg/0.4 mL Syringe SUBCUT (00:38)
[2023-08-17] MEDS: sodium chloride 0.9% 1,000 ML 75 ML IV (00:39)
--- NOTE | 2023-08-17 01:00 | PC.NURSE ---
Gabapentin Gabapentin 300 mg TID PO set to start at 0900 in the morning. Patient states she missed her bedtime dose and is requesting it. Dr. Bates contacted and order received to give 300 mg gabapentin PO once now. See MAR for details.
[2023-08-17] MEDS: gabapentin 300 mg Capsule PO ×2 (01:40→08:53)
[2023-08-17] MEDS: acetaminophen 325 mg Tablet 650 MG PO (01:40)
[2023-08-17 02:47] LABS: Glucose Point of Care 86 mg/dL (70-110)
[2023-08-17 02:48] LABS: Blood Urea Nitrogen 31 mg/dL (8-23); C Reactive Protein 3.4 mg/L (0.0-4.9); Calcium 9.1 mg/dL (8.5-10.5); Carbon Dioxide 22 mmol/L (22-29); Chloride 110 mmol/L (98-107); Cortisol Random 6.22 ug/dL (2.47-19.5); Estmated Average Glucose 160; Glucose 81 mg/dL (65-115); Hemoglobin A1C 7.2 % (4.0-6.0); Magnesium 2.3 mg/dL (1.7-2.3); NT Pro B Type Natriuretic Pept 169 pg/mL (0-450); Osmolality Calculated 302 mOsm/kg (285-295); Phosphorus 4.8 mg/dL (2.5-4.5); Procalcitonin 0.11 ng/mL (0-0.5); Sodium 143 mmol/L (136-145)
--- NOTE | 2023-08-17 02:49 | ECG_ITS ---
[facility] Test Date: 2023-08-17 Pat Name: Capri Tobar Department: Room: ICU11 Gender: Female Placement Coordinator: : 1945 Requested By: Beverley Acharya Order Number: [id number] Kimmy MD: Rashaad Jensen M.D. Measurements Intervals [place] Rate: 82 P: 56 OK: 188 QRS: 48 QRSD: 88 T: 36 QT: 343 QTc: 401 Interpretive Statements SINUS RHYTHM LOW QRS VOLTAGE IN PRECORDIAL LEADS [QRS DEFLECTION < 1.0 mV IN CHEST LEADS] Compared to ECG 08/16/2023 21:47:13 No significant changes Electronically Signed On 08-17-2023 18:34:20 [employer]AYOUT [employer]RAFTER by Rahsaad Jensen M.D. [id number]
[2023-08-17 05:06] LABS: Anion Gap 16.7 (5-19); Blood Urea Nitrogen 30 mg/dL (8-23); Calcium 8.7 mg/dL (8.5-10.5); Carbon Dioxide 20 mmol/L (22-29); Chloride 110 mmol/L (98-107); Glucose 120 mg/dL (65-115); Osmolality Calculated 301 mOsm/kg (285-295); Potassium 4.7 mmol/L (3.5-5.1); Sodium 142 mmol/L (136-145)
[2023-08-17] MEDS: aspirin 81 mg EC Tablet PO (05:52)
[2023-08-17 06:01] LABS: Glucose Point of Care 121 mg/dL (70-110)
[2023-08-17 06:14] LABS: Add Urine Microscopic? YES; Bilirubin Urine Neg (Negative); Blood Urine Neg (Negative); Glucose Urine UA 4+ (Normal); Ketones Urine Negative (Negative); Leukocyte Esterase Urine 2+ (Negative); Nitrate Urine Negative (Negative); Protein Urine Neg (Negative); Specific Gravity, Urine 1.015 (1.005-1.030); Urine Appearance Cloudy (CLEAR); Urine Color Light yellow (Yellow); Urobilinogen Urine Neg (Negative); pH Urine 5 (5-7)
[2023-08-17 06:15] LABS: Add Urine Culture? Yes; Bacteria Urine 3+ /hpf; Mucus Urine 1+ /hpf; Squamous Epithelial Cell Urine 0-4 /hpf (0-5); WBC Urine 15-25 /hpf (0-5)
[2023-08-17] MEDS: insulin glargine 100 units/1 mL 10 UNIT SUBCUT (06:20)
[2023-08-17 08:45] LABS: Anion Gap 16.4 (5-19); Blood Urea Nitrogen 27 mg/dL (8-23); Calcium 8.6 mg/dL (8.5-10.5); Carbon Dioxide 21 mmol/L (22-29); Chloride 109 mmol/L (98-107); Glucose 129 mg/dL (65-115); Osmolality Calculated 301 mOsm/kg (285-295); Potassium 4.4 mmol/L (3.5-5.1); Sodium 142 mmol/L (136-145)
[2023-08-17] MEDS: ticagrelor 90 mg Tablet PO (08:53)
[2023-08-17] MEDS: metoprolol tartrate 25 mg Tablet PO (08:53)
--- NOTE | 2023-08-17 10:18 | PC.PHAR ---
Addendum entered by Davida Freeman 08/17/23 11:22: pt states she uses lantus 10 units qam rx last filled 06/21/23 20 units daily-pt states still taking metoprolol tartrate 25mg bid rx filled 04/24/23 90d/s-pt states still takes pantoprazole 40mg qam last filled 12/22/22 90d/s-and atorvastatin 80mg hs filled 04/27/23 90d/s Original Note: pt states she takes care of her own medications-pt states she no longer has any inhalers-pt states she takes baclofen 5mg hs ext shows last filled for 5mg tid prn-pt states she takes tylenol arthritis 650mg takes 2 tabs bid -
--- NOTE | 2023-08-17 10:26 | PM.DCS ---
Discharge Providers Date of Admission: 08/16/23 23:01 Date of Discharge: August 17, 2023 Attending Provider at Admission: Killian Bates MD Attending Provider at Discharge: Clay Bennett MD Primary Care Provider: Jenniffer Jenkins MD Diagnoses at Discharge Discharge Diagnosis (1) HTN (hypertension): Status: Acute Qualifiers: Hypertension type: essential hypertension Qualified Code(s): I10 - Essential (primary) hypertension (2) Coronary artery disease: Status: Acute Qualifiers: Coronary Disease-Associated Artery/Lesion type: [place] artery [place] vs. transplanted heart: [place] heart Associated angina: without angina Qualified Code(s): I25.10 - Atherosclerotic heart disease of [place] coronary artery without angina pectoris (3) Coronary stent thrombosis: Status: Acute Permanent problem details: Had stent thrombosis x2 during hospitalization with likely mechanism of plavix resistance (4) Chest pain: Status: Acute (5) Hyperkalemia: Status: Acute (6) Atypical chest pain: Status: Inactive Reason for Visit Reason for Visit: sob, chest burning left arm pain Hospital Course Hospital Course 78-year-old female who was admitted for management evaluation of chest discomfort which she described as burning sensation, she was shopping at [employer] when it started yesterday, no such recurrence noted during hospitalization, incidental finding of hyperkalemia, she was given hyperkalemia treatment which improved her potassium significantly, she is not experiencing any chest pain or shortness of breath at the time of evaluation, I requested echo and CTA chest before her discharge. Likely etiology for hyperkalemia is use of nephrotoxic agent such as lisinopril patient carries history of coronary disease she would continue her Brilinta and aspirin. Her GFR is not reportable I do believe she has chronic kidney disease, I will give her referral to see nephrology for staging of her chronic kidney disease. Discontinue lisinopril at time of discharge. Physical Exam Narrative: Awake and alert No active chest pain GCS 15 Pleasant No active distress Euvolemic Doing well on room air Discharge Data Studies Completed and Pending Completed Studies During Hospitalization Category Date Time Status XR chest 1V portable [id number] Stat Exams 08/16/23 19:42 Completed Pending at discharge Category Date Time Status Urine Culture Routine Lab 08/17/23 05:50 Received CV. echo complete* [id number] Routine Ultrasound 08/17/23 23:41 Taken Radiology Impressions Chest X-Ray 08/16/23 19:42 IMPRESSION: 1. No acute cardiopulmonary process. 2. Incidental/nonacute findings are listed in the report. Laboratory Results WBC 13.78 10^3/uL (3.29-11.43) H 08/16/23 20:40 RBC 4.44 10^6/uL (3.85-5.65) 08/16/23 20:40 Hgb 10.40 g/dL (11.27-16.99) L 08/16/23 20:40 Hct 36.4 % (36-47) 08/16/23 20:40 MCV 82.0 fl (85-98) L 08/16/23 20:40 MCH 23.4 pg (27-33) L 08/16/23 20:40 MCHC 28.6 g/dL (30-55) L 08/16/23 20:40 RDW 18.3 % (12.1-15.1) H 08/16/23 20:40 Plt Count 359 10^3/cmm (157-399) 08/16/23 20:40 MPV 10.1 fL (7.4-10.4) 08/16/23 20:40 Neut % (Auto) 75.0 % 08/16/23 20:40 Lymph % (Auto) 16.4 % 08/16/23 20:40 Bryan % (Auto) 5.8 % 08/16/23 20:40 Eos % (Auto) 1.9 % 08/16/23 20:40 Baso % (Auto) 0.5 % 08/16/23 20:40 Neut # (Auto) 10.34 10^3/uL (1.8-7.7) H 08/16/23 20:40 Lymph # (Auto) 2.3 10^3/uL (0.8-4.8) 08/16/23 20:40 Bryan # (Auto) 0.8 10^3/uL (0.2-0.9) 08/16/23 20:40 Eos # (Auto) 0.3 10^3/uL (0.0-0.8) 08/16/23 20:40 Baso # (Auto) 0.1 10^3/uL (0.0-0.1) 08/16/23 20:40 Nucleated RBC % (auto) 0.1 % 08/16/23 20:40 Nucleated RBCs # 0.0 /100WBC 08/16/23 20:40 PT 13.70 SECONDS (12.1-14.9) 08/16/23 20:40 INR 1.02 (0.8-1.2) 08/16/23 20:40 Sodium 142 mmol/L (136-145) 08/17/23 08:07 Potassium 4.4 mmol/L (3.5-5.1) 08/17/23 08:07 Chloride 109 mmol/L (98-107) H 08/17/23 08:07 Carbon Dioxide 21 mmol/L (22-29) L 08/17/23 08:07 Anion Gap 16.4 (5-19) 08/17/23 08:07 BUN 27 mg/dL (8-23) H 08/17/23 08:07 Creatinine 1.2 mg/dL (0.5-0.9) H 08/17/23 08:07 GFR Calculation Not Reportable 08/17/23 08:07 Glucose 129 mg/dL (65-115) H 08/17/23 08:07 POC Glucose 121 mg/dL (70-110) H 08/17/23 05:49 Estimat Average Glucose 160 08/17/23 01:42 Hemoglobin A1c 7.2 % (4.0-6.0) H 08/17/23 01:42 Calculated Osmolality 301 mOsm/kg (285-295) H 08/17/23 08:07 Lactic Acid 1.0 mmol/L (0.5-2.2) 08/17/23 01:42 Calcium 8.6 mg/dL (8.5-10.5) 08/17/23 08:07 Phosphorus 4.8 mg/dL (2.5-4.5) H 08/17/23 01:42 Magnesium 2.3 mg/dL (1.7-2.3) 08/17/23 01:42 Total Bilirubin 0.8 mg/dL (0.15-1.2) 08/16/23 20:40 AST 24 U/L (0-32) 08/16/23 20:40 ALT 15 U/L (0-33) 08/16/23 20:40 Alkaline Phosphatase 117 U/L (35-105) H 08/16/23 20:40 Troponin T Baseline 15 ng/L (0-10) H 08/16/23 20:40 Troponin T 120 Minute 12.63 ng/L (0-10) H 08/16/23 21:35 Delta Troponin T -2.37 ABS# (0-10) L 08/16/23 21:35 Troponin T Hi Sens 6Hr 9.50 ng/L (0-10) 08/17/23 01:42 Troponin T Hi Sens 6Hr Delta -5.50 ng/L (0-12) L 08/17/23 01:42 C-Reactive Protein 3.4 mg/L (0.0-4.9) 08/17/23 01:42 NT-Pro-B Natriuret Pep 169 pg/mL (0-450) 08/17/23 01:42 Total Protein 7.8 g/dL (6.6-8.7) 08/16/23 20:40 Albumin 4.0 g/dL (3.5-5.2) 08/16/23 20:40 Globulin 3.8 g/dL (1.3-4.6) 08/16/23 20:40 Procalcitonin 0.11 ng/mL (0-0.5) 08/17/23 01:42 TSH 5.10 uIU/mL (0.27-4.20) H 08/17/23 01:42 Random Cortisol 6.22 ug/dL (2.47-19.5) 08/17/23 01:42 Urine Color Light yellow (Yellow) 08/17/23 05:50 Urine Appearance Cloudy (CLEAR) A 08/17/23 05:50 Urine pH 5 (5-7) 08/17/23 05:50 Ur Specific [place] 1.015 (1.005-1.030) 08/17/23 05:50 Urine Protein Neg (Negative) 08/17/23 05:50 Urine Glucose (UA) 4+ (Normal) H 08/17/23 05:50 Urine Ketones Negative (Negative) 08/17/23 05:50 Urine Blood Neg (Negative) 08/17/23 05:50 Urine Nitrate Negative (Negative) 08/17/23 05:50 Urine Bilirubin Neg (Negative) 08/17/23 05:50 Urine Urobilinogen Neg mg/dL (Negative) 08/17/23 05:50 Ur Leukocyte Esterase 2+ (Negative) H 08/17/23 05:50 Urine RBC 5-10 /hpf (0-2) H 08/17/23 05:50 Urine WBC 15-25 /hpf (0-5) H 08/17/23 05:50 Ur Squamous Epith Cells 0-4 /hpf (0-5) H 08/17/23 05:50 Ur Transition Epith Cell 5-10 /hpf 08/17/23 05:50 Amorphous Sediment Not Reportable 08/17/23 05:50 Urine Bacteria 3+ /hpf (NONE) H 08/17/23 05:50 Urine Mucus 1+ /hpf 08/17/23 05:50 Vitals Last Vital Signs Temp 98.0 F 08/17/23 08:00 Pulse 83 08/17/23 10:00 Resp 18 08/17/23 10:00 BP 98/46 08/17/23 10:00 Pulse Ox 94 08/17/23 10:00 O2 Del Method Room Air 08/17/23 08:00 Discharge Plan Discharge Patient Disposition: Home Condition: Stable Prescriptions: New cefpodoxime 100 mg tablet 100 mg PO BID Qty: 10 0RF Rx Instructions: must administer with a meal/food Continued acetaminophen [Tylenol Arthritis Pain] 650 mg tablet extended release 1,300 mg PO BID pantoprazole 40 mg tablet,delayed release (DR/EC) 40 mg PO QAM allopurinol 100 mg tablet 100 mg PO BEDTIME amitriptyline 25 mg tablet 25 mg PO BEDTIME Brilinta 90 mg tablet 90 mg PO BID Qty: 180 3RF nitroglycerin [Nitrostat] 0.4 mg tablet, sublingual 0.4 mg sublingual Q5M PRN (Reason: chest pain) Qty: 25 4RF Rx Instructions: DO NOT EXCEED 3 DOSES PER EPISODE atorvastatin 80 mg tablet 80 mg PO BEDTIME Qty: 90 3RF metoprolol tartrate 25 mg tablet 25 mg PO BID@0900,2100 Qty: 120 3RF levothyroxine 50 mcg tablet 50 mcg PO BEDTIME gabapentin 300 mg capsule 300 mg PO TID baclofen 5 mg tablet 5 mg PO BEDTIME Jardiance 10 mg tablet 10 mg PO QAM aspirin 81 mg tablet,delayed release (DR/EC) 81 mg PO QAM insulin glargine [Lantus Solostar U-100 Insulin] 100 unit/mL (3 mL) insulin pen 10 unit SUBCUT QAM Qty: 15 0RF Discontinued metformin 500 mg tablet extended release 24 hr 500 mg PO BEDTIME lisinopril 20 mg tablet 20 mg PO QAM Hold Instructions: Resume on 01/26/23. Discharge Orders: Discharge Order (Routine); Ordered 08/17/23 Ordered By: Clay Bennett Referrals: Jenniffer Jenkins MD [Primary Care Provider] - Aubree Deleon MD [Referring] - 4-7 days Discharge Diet: Diabetic Discharge Activity: Increase activity as tolerated Patient Instructions: Opioid Safety Discharge Attestations Time Spent in Discharge Care*: greater than 30 min Quality Metrics Clinical Quality Measures [ No reported AMI, CVA or VTE this stay] Coding Level of Care Code Acute Code for Chg Fwd Diagnoses Essential hypertension I10 Hypertension type: essential hypertension Coronary artery disease involving [place] coronary artery of [place] heart without angina pectoris I25.10 Coronary Disease-Associated Artery/Lesion type: [place] artery [place] vs. transplanted heart: [place] heart Associated angina: without angina Coronary stent thrombosis T82.867A Chest pain R07.9 Hyperkalemia E87.5 Atypical chest pain R07.89
--- NOTE | 2023-08-17 10:27 | CT_ITS ---
WS: [id number] CT CHEST ANGIOGRAPHY WITH REFORMATS HISTORY: chest pain TECHNIQUE: Contiguous axial images are obtained through the chest during arterial injection of intrav enous contrast. Images are reconstructed to evaluate the pulmonary arteries. MIP imaging also reviewe d. All CT scans at [facility] use at least one of these dose optimization techniques: automat ed exposure control; mA and/or kV adjustment per patient size (includes targeted exams where dose is matched to clinical indication); or iterative reconstruction. CONTRAST: Omnipaque 350; 100 mL IV. DLP: 470.89 mGy.cm COMPARISON: 05/05/2021 Very good opacification of the pulmonary arteries. No pulmonary embolism. Mild atherosclerosis aorta. Normal size heart. No pericardial or pleural effusions. Lungs are hyperinflated from emphysema. Chronic appearing peripheral interstitial thickening. No bron chiectasis or honeycombing identified. No mass or dense consolidation or pneumonia. Indeterminate but prominent hilar lymph nodes measuring up to 15 mm in diameter. No chest wall abnormality. Small hiat al hernia. No adrenal mass. Prior cholecystectomy. Hepatic steatosis. Osteopenia. Mild increase in the lumbar lordosis. IMPRESSION: 1. No pulmonary embolism. 2. Chronic centrilobular emphysema. No pneumonia. 3. Indeterminate hilar lymph nodes. Probably reactive. 4. Prior cholecystectomy.
[2023-08-17] MEDS: iohexol 350 mg/mL 500 mL Btl (per mL) IV (11:50)
--- NOTE | 2023-08-17 13:20 | PC.NURSE ---
SHift Summary/Discharge..... Uneventful shift. Carmen rested in bed most of day, but was up frequently to use the bathroom. Alert and oriented. No chest pain reported. After CT results were in and echo completed, she has been discharged. Discharged patient at 1300. Prescriptions sent to [email or web address]. IV removed. Upcoming appointment, new medications, and discontinued medication education provided. Appointment with Aubree [email or web address] is pending. They have been given all patient and insurance information, they should be calling patient to arrange appointment
--- NOTE | 2023-08-17 23:41 | USCV_ITS ---
Amadou Capri Age: 78 Gender: F : 1945 Exam Date: 08/17/2023 07:06 Ordering Phys: Killian Bates MD Technologist: Jesus Rodriguez Exam Location: [facility] [place] Indication: sob BP: 118 / 59 HR: 82 Rhythm: Sinus Technical Quality: Adequate MEASUREMENTS (Male / Female) Normal Values 2D ECHO LV Diastolic Diameter PLAX 3.7 cm 4.2 - 5.9 / 3.9 - 5.3 cm LV Systolic Diameter PLAX 2.5 cm IVS Diastolic Thickness 1.3 cm 0.6 - 1.0 / 0.6 - 0.9 cm IVS Systolic Thickness 1.6 cm LVPW Diastolic Thickness 1.3 cm 0.6 - 1.0 / 0.6 - 0.9 cm LVPW Systolic Thickness 1.7 cm LVOT Diameter 2.0 cm LV Ejection Fraction 2D Teich 61.9 % LV Ejection Fraction MOD 2C 54.6 % LV Ejection Fraction 2C AL 56.2 % LA Diameter 3.8 cm M-MODE Aortic Annulus Diameter 3.4 cm LA Ao Ratio MM 1.2 MV E Point Septal Separation 1.4 cm DOPPLER AV Peak Velocity 127.0 cm/s LVOT Peak Velocity 86.0 cm/s AV Area Cont Eq vti 2.9 cm squared AV Area Cont Eq pk 2.2 cm squared MV Area PHT 3.0 cm squared Mitral E to A Ratio 0.7 MV E' Velocity 45.0 cm/s Mitral E to MV E' Ratio 9.8 Mitral E to LV E' Lateral Ratio 8.2 Mitral E to LV E' Septal Ratio 12.3 TR Peak Velocity 308.3 cm/s TR Peak Gradient 38.0 mmHg TV Peak E Velocity 107.0 cm/s Right Atrial Pressure 3.0 mmHg Pulmonary Artery Systolic Pressu 41.0 mmHg RV Acceleration Time 0.1 s FINDINGS Left Ventricle Left ventricle is normal in size. LV systolic function is normal with EF of 55-60%. No regional wall motion abnormalities. Grade 1 diastolic dysfunction Right Ventricle Normal in size and function Right Atrium Normal in size Left Atrium Normal in size Mitral Valve Structurally normal mitral valve. Mild mitral regurgitation. Aortic Valve Structurally normal aortic valve. No significant stenosis or regurgitation. Tricuspid Valve Mild tricuspid regurgitation. RVSP is 40-45mmHg. This is consistent with mild pulmonary hypertension. Pulmonic Valve Not well visualized Pericardium Normal Aorta Normal in size IVC Appears to be normal CONCLUSIONS LV systolic function is normal with EF of 55-60% Grade 1 diastolic dysfunction Mild mitral regurgitation. Mild tricuspid regurgitation. Mild pulmonary hypertension Compared to prior echocardiogram from 2022, no significant changes are seen Rashaad Jensen MD (Electronically Signed) Final Date: 20 August 2023 17:34 S
== END 2023-08-17 13:23 | disposition home or self-care (01) ==
LOC: ER 22:30 → ICU 23:45
PROVIDERS: Admitting Provider Family Medicine; Emergency Provider Emergency Medicine; PCP Internal Medicine; Visit Provider Internal Medicine
DX: R07.89 Other chest pain (principal); I10 Essential (primary) hypertension; I25.10 Atherosclerotic heart disease of native coronary artery without angina pectoris; T82.867A Thrombosis due to cardiac prosthetic devices, implants and grafts, initial encounter; Y83.8 Other surgical procedures as the cause of abnormal reaction of the patient, or of later complication, without mention of misadventure at the time of the procedure; E87.5 Hyperkalemia; Z95.5 Presence of coronary angioplasty implant and graft; Z79.82 Long term (current) use of aspirin; E11.9 Type 2 diabetes mellitus without complications; Z79.4 Long term (current) use of insulin; I25.2 Old myocardial infarction; Z87.891 Personal history of nicotine dependence
CPT/HCPCS: 36415; 36416; 71045; 71275; 80048; 80053; 81001; 82533; 82962; 83036; 83605; 83735; 83880; 84100; 84132; 84145; 84443; 84484; 85025; 85610; 86140; 87077; 87086; 87186; 93005; 93306; 94664; 96372; 96374; 96375; 96376; 99285; G0378; J0612; J1650; J1815; J7030; Q9967

== ENCOUNTER 2023-10-20 07:36 | Oncology outpatient (recurring) (ONCR) | payer MEDICARE, SELFPAY ==
[2023-10-20] MEDS: diphenhydrAMINE 25 mg Capsule PO (08:41)
[2023-10-20] MEDS: acetaminophen 500 mg Tablet PO (08:41)
[2023-10-20] MEDS: sodium chloride 0.9% 250 mL Bag IV (08:42)
[2023-10-20 10:37] LABS: Basophils # 0.1 10^3/uL (0.0-0.1); Basophils % 0.9 %; Eosinophils # 0.4 10^3/uL (0.0-0.8); Eosinophils % 4.2 %; Hematocrit 34.8 % (36-47); Lymphocytes # 2.9 10^3/uL (0.8-4.8); Mean Corpuscular HGB Conc 27.6 g/dL (30-55); Mean Corpuscular Hemoglobin 25.8 pg (27-33); Mean Corpuscular Volume 93.5 fl (85-98); Monocytes # 0.9 10^3/uL (0.2-0.9); Monocytes % 9.2 %; Neutrophils # 5.05 10^3/uL (1.8-7.7); Neutrophils % 54.4 %; Nucleated Red Blood Cells % 0 %; Platelet Count 278 10^3/cmm (157-399); Red Blood Count 3.72 10^6/uL (3.85-5.65); Red Cell Distribution Width 22.3 % (12.1-15.1); White Blood Count 9.27 10^3/uL (3.29-11.43)
== END 2023-11-16 23:59 | disposition home or self-care (01) ==
LOC: ONCMED 07:37
PROVIDERS: PCP Internal Medicine; Visit Provider Internal Medicine
DX: D64.9 Anemia, unspecified (principal)
CPT/HCPCS: 85025; 86850; 86900; 86920; 96360; J7050

== ENCOUNTER 2023-12-14 20:21 | Emergency (ER) | payer MEDICARE, SELFPAY ==
[2023-12-14 20:26] VITALS: BP 171/86; PULSE 126; RESP 18; TEMP 36.4; O2SAT 95; BMI 30.1
[2023-12-14 21:02] LABS: Basophils # 0.1 10^3/uL (0.0-0.1); Basophils % 0.4 %; Eosinophils # 0.1 10^3/uL (0.0-0.8); Eosinophils % 0.9 %; Hematocrit 41.5 % (36-47); Lymphocytes % 12.9 %; Mean Corpuscular HGB Conc 30.4 g/dL (30-55); Mean Corpuscular Hemoglobin 27.5 pg (27-33); Mean Corpuscular Volume 90.6 fl (85-98); Mean Platelet Volume 10.1 fL (7.4-10.4); Monocytes # 0.9 10^3/uL (0.2-0.9); Monocytes % 5.6 %; Neutrophils # 12.27 10^3/uL (1.8-7.7); Neutrophils % 79.8 %; Nucleated Red Blood Cells % 0 %; Platelet Count 280 10^3/cmm (157-399); Red Blood Count 4.58 10^6/uL (3.85-5.65); Red Cell Distribution Width 16.5 % (12.1-15.1); White Blood Count 15.38 10^3/uL (3.29-11.43)
--- NOTE | 2023-12-14 21:05 | ED_ITS ---
HPI - GI Bleed 2 General: Chief complaint: GI Bleed Stated complaint: Rectal Bleeding Time Seen by Provider: 12/14/23 20:49 History of Present Illness: 78-year-old female with a history of gou t, coronary stent thrombosis, coronary artery disease, hypertension, and peripheral artery disease who presents to the emergency room with bright red blood per rectum. She says she has had diverticular bleeds in the past and has had it so bad that she required blood transfusions. She says she has had copious amounts of bright red blood for the past 24 hours. She had loss of continence and has blood/stool on her clothing and shoes. She is not currently lightheaded. No chest pain. No abdominal pain. No vomiting. She is on Brilinta for her coronary artery disease. No other anticoagulation. Other than an 81 mg aspirin. On further investigation apparently she had a large amount of bleeding last night, but has not had any bleeding all day today. She ended up come to the emergency room at the urging of her primary care provider secondary to her history of a large bleed. She said the last time it lasted for hours Review of Systems 2 Narrative: Constitutional symptoms: Negative except as documented in HPI. Skin symptoms: Negative except as documented in HPI. Eye symptoms: Negative except as documented in HPI. ENMT symptoms: Negative except as documented in HPI. Respiratory symptoms: Negative except as documented in HPI. Cardiovascular symptoms: Negative except as documented in HPI. Gastrointestinal symptoms: Negative except as documented in HPI. Genitourinary symptoms: Negative except as documented in HPI. Musculoskeletal symptoms: Negative except as documented in HPI. Neurologic symptoms: Negative except as documented in HPI. Psychiatric symptoms: Negative except as documented in HPI. Endocrine symptoms: Negative except as documented in HPI. PFSH ED 2 PFSH: Medical History Chest pain Coronary stent thrombosis Had stent thrombosis x2 during hospitalization with likely mechanism of plavix resistance ST elevation myocardial infarction (STEMI) History of [place] (myocardial infarction) Coronary artery disease PAD (peripheral artery disease) HTN (hypertension) Surgical History H/O esophagogastroduodenoscopy (12/19/20) Gastric erosions Status post colonoscopy (12/19/20) Extensive diverticulosis H/O section S/P breast biopsy S/P PTCA (percutaneous transluminal coronary angioplasty) S/P appendectomy History of cholecystectomy S/P femoral-popliteal bypass surgery Family History Other CAD (coronary artery disease) Cancer Diabetes Hypertension Stroke Social History Smoking and tobacco/nicotine status: former use of tobacco/nicotine Quit status (tobacco/nicotine): has quit using Year quit tobacco: 2016 Alcohol intake: never Substance/Drug Use: never Physical Exam 2 Narrative: EXAM NARRATIVE: General: Alert, no acute distress. Skin: Warm, dry. Head: Normocephalic, atraumatic. Neck: Supple, trachea midline. Eye: Extraocular movements are intact. Ears, nose, mouth and throat: mucosa moist. Cardiovascular: Regular tachycardic, Normal peripheral perfusion. Respiratory: Lungs are clear to auscultation, respirations are non-labored, breath sounds are equal, Symmetrical chest wall expansion. Gastrointestinal: Soft, Nontender, Non distended, Normal bowel sounds. Musculoskeletal: Normal ROM, no deformity. Neurological: Alert and oriented, No focal neurological deficit observed. Psychiatric: Cooperative, appropriate mood & affect. Course 2 Vital Signs: Vital signs: Vital Signs Temperature 97.6 F 12/14/23 20:26 Pulse Rate 110 H 12/14/23 21:45 Respiratory Rate 18 12/14/23 20:26 Blood Pressure 156/80 12/14/23 21:45 Pulse Oximetry 92 12/14/23 21:45 Oxygen Delivery Me thod Nasal Cannula 12/14/23 21:45 Oxygen Flow Rate 2 12/14/23 21:45 MDM - GI Bleed Medical Decision Making Medical decision making: Differential diagnosis including but not limited to and based on the above HPI, review of systems and physical exam: First concern would be is she having a bleeding that she needs transfusion. BMP and CBC were ordered. Orders placed to evaluate differential diagnosis based on the above differential, HPI and physical exam Lab Review: Laboratory results were reviewed and interpreted by myself the emergency room physician. White count is 15. Hemoglobin is 12.6. This is up from a month and a half ago when it was 9.6. Platelets are 280. BUN and creatinine are 39 and 1.1. Creatinine is about baseline the BUN is up a little bit almost 10 points over her baseline. This would suggest she has had some significant bleeding. As with her exam. EKG: Time normal sinus rhythm, No ST-T changes, no ectopy, normal [place] & QRS intervals, This was reviewed and interpreted by myself the ER physician at 1235 I reviewed the patient's medical record. Reexamination: Patient remained stable. Heart rate has come down. She did feels a little bit on her Ortho's so some fluids are being given. She may just be somewhat dehydrated. I think her hemoglobin is accurate at 12.6 given that she has not bled in almost 24 hours. No altered mental status. No focal motor deficits. Consultation: I spoke with Dr. Pratt who is on-call for general surgery. He recommends that if she needs admitted that she will need to be shipped to [place] or somewhere gastroenterology as they are not equipped to deal with large lower GI bleeds. At this point she is stopped bleeding for over 24 hours so likely this is self-limited and she still has a hemoglobin of 12.6 so I think she is okay to go home and she only lives a few blocks away if she starts bleeding again she understands to come back to the emergency room Assessment and plan: Diverticular bleed Dehydration - Discharged home - Discussed plan with patient. Answered any questions. - Evaluation and treatment of this problem were appropriate in the emergency setting. Lab Data 12/14/23 20:51 12/14/23 20:51 Laboratory Results WBC 15.38 10^3/uL (3.29-11.43) H 12/14/23 20:51 RBC 4.58 10^6/uL (3.85-5.65) 12/14/23 20:51 Hgb 12.60 g/dL (11.27-16.99) 12/14/23 20:51 Hct 41.5 % (36-47) 12/14/23 20:51 MCV 90.6 fl (85-98) 12/14/23 20:51 MCH 27.5 pg (27-33) 12/14/23 20:51 MCHC 30.4 g/dL (30-55) 12/14/23 20:51 RDW 16.5 % (12.1-15.1) H 12/14/23 20:51 Plt Count 280 10^3/cmm (157-399) 12/14/23 20:51 MPV 10.1 fL (7.4-10.4) 12/14/23 20:51 Neut % (Auto) 79.8 % 12/14/23 20:51 Lymph % (Auto) 12.9 % 12/14/23 20:51 [place] % (Auto) 5.6 % 12/14/23 20:51 Eos % (Auto) 0.9 % 12/14/23 20:51 Baso % (Auto) 0.4 % 12/14/23 20:51 Neut # (Auto) 12.27 10^3/uL (1.8-7.7) H 12/14/23 20:51 Lymph # (Auto) 2.0 10^3/uL (0.8-4.8) 12/14/23 20:51 [place] # (Auto) 0.9 10^3/uL (0.2-0.9) 12/14/23 20:51 Eos # (Auto) 0.1 10^3/uL (0.0-0.8) 12/14/23 20:51 Baso # (Auto) 0.1 10^3/uL (0.0-0.1) 12/14/23 20:51 Nucleated RBC % (auto) 0 % 12/14/23 20:51 Nucleated RBCs # 0.0 /100WBC 12/14/23 20:51 PT 13.80 SECONDS (12.1-14.9) 12/14/23 20:15 INR 1.03 (0.8-1.2) 12/14/23 20:15 APTT 29.2 SECONDS (23.9-36.7) 12/14/23 20:15 Sodium 138 mmol/L (136-145) 12/14/23 20:51 Potassium 4.5 mmol/L (3.5-5.1) 12/14/23 20:51 Chloride 104 mmol/L (98-107) 12/14/23 20:51 Carbon Dioxide 18 mmol/L (22-29) L 12/14/23 20:51 Anion Gap 20.5 (5-19) H 12/14/23 20:51 BUN 39 mg/dL (8-23) H 12/14/23 20:51 Creatinine 1.1 mg/dL (0.5-0.9) H 12/14/23 20:51 GFR Calculation Not Reportable 12/14/23 20:51 Glucose 214 mg/dL (65-115) H 12/14/23 20:51 Calculated Osmolality 302 mOsm/kg (285-295) H 12/14/23 20:51 Calcium 9.0 mg/dL (8.5-10.5) 12/14/23 20:51 Total Bilirubin 0.6 mg/dL (0.15-1.2) 12/14/23 20:51 AST 27 U/L (0-32) 12/14/23 20:51 ALT 21 U/L (0-33) 12/14/23 20:51 Alkaline Phosphatase 116 U/L (35-105) H 12/14/23 20:51 Total Protein 7.5 g/dL (6.6-8.7) 12/14/23 20:51 Albumin 3.8 g/dL (3.5-5.2) 12/14/23 20:51 Globulin 3.7 g/dL (1.3-4.6) 12/14/23 20:51 Blood Type B Negative 12/14/23 20:51 Rho(D) Type Rh negative 12/14/23 20:51 Antibody Screen Negative 12/14/23 20:51 No radiology studies performed this visit Discharge Plan Discharge Patient Disposition: Home Clinical Impression: Diverticular hemorrhage, Hematochezia, Dehydration Condition: Stable Prescriptions: No Action acetaminophen [Tylenol Arthritis Pain] 650 mg tablet extended release 1,300 mg PO BID pantoprazole 40 mg tablet,delayed release (DR/EC) 40 mg PO QAM allopurinol 100 mg tablet 100 mg PO BEDTIME amitriptyline 25 mg tablet 25 mg PO BEDTIME Brilinta 90 mg tablet 90 mg PO BID Qty: 180 3RF nitroglycerin [Nitrostat] 0.4 mg tablet, sublingual 0.4 mg sublingual Q5M PRN (Reason: chest pain) Qty: 25 4RF Rx Instructions: DO NOT EXCEED 3 DOSES PER EPISODE metoprolol tartrate 25 mg tablet 25 mg PO BID@0900,2100 Qty: 120 3RF atorvastatin 80 mg tablet 80 mg PO BEDTIME Qty: 90 3RF levothyroxine 50 mcg tablet 50 mcg PO BEDTIME gabapentin 300 mg capsule 300 mg PO TID baclofen 5 mg tablet 5 mg PO BEDTIME Jardiance 10 mg tablet 10 mg PO QAM aspirin 81 mg tablet,delayed release (DR/EC) 81 mg PO QAM insulin glargine [Lantus Solostar U-100 Insulin] 100 unit/mL (3 mL) insulin pen 10 unit SUBCUT QAM Qty: 15 0RF cefpodoxime 100 mg tablet 100 mg PO BID Qty: 10 0RF Rx Instructions: must administer with a meal/food Discharge Orders: Discharge ED (Routine); Ordered 12/14/23 Ordered By: Miroslava Arias Referrals: Jenniffer Jenkins MD [Primary Care Provider] - 4-7 days () Discharge Diet: Usual diet Discharge Activity: Increase activity as tolerated Patient Instructions: Rectal Bleeding (ED), Diverticulosis (ED) Activity Restrictions/Additional Instructions: Thank you for choosing [facility] for your healthcare needs today. Please realize this is an emergency room and that we are providing you with a medical screening exam and this may not be complete and all inclusive of all the testing and or work up that you may need to determine your ailment or severity of your illness. You have been screened and evaluated and felt safe for discharge. Health conditions do change or evolve sometimes and as such it is important that you follow up with your Primary Doctor to be re checked, 3-5 days is a general good time frame for follow up. You are always welcome to return to the ED for re assessment if your symptoms are worsening or you have new concerns Coding Level of Care Code ED University Manager for [employer]
--- NOTE | 2023-12-14 21:11 | ECG_ITS ---
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 Measurements Intervals [place] Rate: 117 P: 35 [place]: 138 QRS: 16 QRSD: 88 T: 37 QT: 340 QTc: 476 Interpretive Statements SINUS TACHYCARDIA NONSPECIFIC ST & T-WAVE ABNORMALITY Compared to ECG 08/17/2023 02:49:41 T-wave abnormality now present Sinus rhythm no longer present Electronically Signed On 12-15-2023 13:55:48 CDT by Rashaad Jensen M.D. [id number]
[2023-12-14 21:28] LABS: Alanine Aminotransferase 21 U/L (0-33); Albumin Level 3.8 g/dL (3.5-5.2); Alkaline Phosphatase 116 U/L (35-105); Anion Gap 20.5 (5-19); Aspartate Amino Transferase 27 U/L (0-32); Blood Urea Nitrogen 39 mg/dL (8-23); Carbon Dioxide 18 mmol/L (22-29); Chloride 104 mmol/L (98-107); Creatinine Clr Calc Pharmacy 40.7758; Globulin 3.7 g/dL (1.3-4.6); Glucose 214 mg/dL (65-115); Osmolality Calculated 302 mOsm/kg (285-295); Potassium 4.5 mmol/L (3.5-5.1); Sodium 138 mmol/L (136-145); Total Protein 7.5 g/dL (6.6-8.7)
[2023-12-14 21:38] VITALS: BP 102/72; BP 134/79; BP 143/82; PULSE 117; PULSE 120; PULSE 133
[2023-12-14 21:45] VITALS: BP 156/80; PULSE 110; O2SAT 92
[2023-12-14 21:51] LABS: Total Bilirubin 0.6 mg/dL (0.15-1.2)
[2023-12-14 21:56] LABS: INR 1.03 (0.8-1.2); Partial Thromboplastin Time 29.2 SECONDS (23.9-36.7)
[2023-12-14] MEDS: sodium chloride 0.9% 1,000 ML 999 ML IV (22:18)
[2023-12-14 23:21] VITALS: BP 144/105; PULSE 107; O2SAT 90
== END 2023-12-14 22:57 | disposition home or self-care (01) ==
PROVIDERS: Emergency Provider Emergency Medicine; PCP Internal Medicine
DX: K92.2 Gastrointestinal hemorrhage, unspecified (principal); K92.1 Melena; E86.0 Dehydration; Z79.82 Long term (current) use of aspirin; Z79.4 Long term (current) use of insulin; Z87.891 Personal history of nicotine dependence; I25.2 Old myocardial infarction; I25.10 Atherosclerotic heart disease of native coronary artery without angina pectoris; I10 Essential (primary) hypertension
CPT/HCPCS: 36415; 80053; 85025; 85610; 85730; 86850; 86900; 93005; 96360; 99284; J7030

== ENCOUNTER → 2024-02-16 15:26 | Outpatient (BNVA) | payer MEDICARE, SELFPAY | PROVIDERS: PCP Internal Medicine; Visit Provider Internal Medicine | DX: I25.10 Atherosclerotic heart disease of native coronary artery without angina pectoris (principal); I73.9 Peripheral vascular disease, unspecified; I10 Essential (primary) hypertension; Z87.891 Personal history of nicotine dependence | CPT/HCPCS: 99214 ==

== ENCOUNTER 2024-05-04 11:05 | Outpatient (CLI) | payer MEDICARE, SELFPAY ==
--- NOTE | 2024-05-04 11:07 | MM_ITS ---
WS: [id number] Bilateral screening 3D tomosynthesis digital mammogram, 05/04/2024 12:02 PM Clinical Data: SCREENING Comparison: 03/25/2023, 11/28/2021, 05/22/2020, 03/30/2019, 03/02/2018, 11/26/2016, 08/12/2015, 08/09/2014, 11/17/2012, 12/09/2010. Findings: No spiculated masses or clustered calcifications are seen. There are no secondary signs of carcinoma . The nipples are inverted. There is skin thickening in the lateral aspect of the right breast, proba prabhakar from prior biopsies. Vascular calcifications are present. MM/MM scr BI tomosynthesis [id number] Impression: Negative bilateral mammogram unchanged. Recommend annual screening mammograms. BIRADS: 2 - Benign. FOLLOW UP: 1 Year Follow-up DENSITY: The breasts are almost entirely fatty. The CAD dry cleaning checker was used
== END 2024-05-04 11:06 | disposition home or self-care (01) ==
LOC: RAD 11:06
PROVIDERS: PCP Internal Medicine; Visit Provider Internal Medicine
DX: Z12.31 Encounter for screening mammogram for malignant neoplasm of breast (principal); N64.53 Retraction of nipple; R92.1 Mammographic calcification found on diagnostic imaging of breast
CPT/HCPCS: 77063; 77067

== ENCOUNTER 2024-05-21 02:08 | Emergency (ER) | payer MEDICARE, SELFPAY ==
[2024-05-21] VITALS (9 sets, daily range): BP systolic 131–174; BP diastolic 63–91; PULSE 94–114; RESP 15–21; TEMP 36.7; O2SAT 90–96; BMI 31.8
--- NOTE | 2024-05-21 02:07 | ECG_ITS ---
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 Measurements Intervals [place] Rate: 118 P: 53 [place]: 157 QRS: 53 QRSD: 88 T: 38 QT: 340 QTc: 477 Interpretive Statements SINUS TACHYCARDIA NONSPECIFIC ST & T-WAVE ABNORMALITY ABNORMAL RHYTHM ECG Compared to ECG 12/14/2023 21:30:06 No significant changes Electronically Signed On 05-21-2024 14:02:57 PRIVATE WATCHMAN by Alexandrea Martines M.D. [id number]
--- NOTE | 2024-05-21 02:32 | XRR_ITS ---
PROCEDURE INFORMATION: Exam: XR Chest Exam date and time: 05/21/2024 2:33 AM Age: 79 years old Clinical indication: Shortness of breath; Chest pressure; Patient HX: C/O chest pain with SOB; Additional info: Cp TECHNIQUE: Imaging protocol: Radiologic exam of the chest. Views: 1 view. COMPARISON: CT angio chest PE protcl [id number] 08/17/2023 11:43 AM FINDINGS: Lungs: Bibasilar infiltrates. normal pulmonary vascularity Pleural spaces: Unremarkable. No pleural effusion. No pneumothorax. Heart/Mediastinum: Mild cardiomegaly . Bones/joints: Unremarkable. XR/XR chest 1V portable [id number] IMPRESSION: Bibasilar infiltrates. Suspicious for pneumonia.
[2024-05-21 02:49] LABS: Basophils # 0.1 10^3/uL (0.0-0.1); Basophils % 0.8 %; Eosinophils # 0.3 10^3/uL (0.0-0.8); Eosinophils % 2.9 %; Hematocrit 38.3 % (36-47); Lymphocytes # 3.8 10^3/uL (0.8-4.8); Lymphocytes % 32.3 %; Mean Corpuscular HGB Conc 27.4 g/dL (30-55); Mean Corpuscular Hemoglobin 20.8 pg (27-33); Mean Platelet Volume 9.8 fL (7.4-10.4); Monocytes # 0.8 10^3/uL (0.2-0.9); Monocytes % 6.3 %; Neutrophils # 6.77 10^3/uL (1.8-7.7); Neutrophils % 57.2 %; Nucleated Red Blood Cells % 0.2 %; Platelet Count 324 10^3/cmm (157-399); Red Blood Count 5.04 10^6/uL (3.85-5.65); Red Cell Distribution Width 19.7 % (12.1-15.1); White Blood Count 11.84 10^3/uL (3.29-11.43)
[2024-05-21 03:01] LABS: Anion Gap 18.2 (5-19); Blood Urea Nitrogen 16 mg/dL (8-23); Calcium 8.6 mg/dL (8.5-10.5); Carbon Dioxide 21 mmol/L (22-29); Chloride 108 mmol/L (98-107); Creatinine Clr Calc Pharmacy 50.4481; Glucose 150 mg/dL (65-115); Osmolality Calculated 300 mOsm/kg (285-295); Potassium 4.2 mmol/L (3.5-5.1); Sodium 143 mmol/L (136-145)
[2024-05-21 03:05] LABS: Troponin(5th) Baseline 8 ng/L (0-10)
[2024-05-21 03:12] LABS: Alanine Aminotransferase 14 U/L (0-33); Albumin Level 3.9 g/dL (3.5-5.2); Alkaline Phosphatase 99 U/L (35-105); Aspartate Amino Transferase 24 U/L (0-32); Globulin 2.4 g/dL (1.3-4.6); NT Pro B Type Natriuretic Pept 198 pg/mL (0-450); Total Bilirubin 0.7 mg/dL (0.15-1.2); Total Protein 6.3 g/dL (6.6-8.7)
[2024-05-21] MEDS: ondansetron 2 mg/ML SDV 2 mL 4 MG IVP (03:58)
[2024-05-21] MEDS: morphine 4 mg/mL SDV 1 mL IVP (04:00)
--- NOTE | 2024-05-21 04:06 | ED_ITS ---
HPI - Chest Pain 2 General: Chief Complaint: Chest Pain Stated Complaint: Cp SoB Time Seen by Provider: 05/21/24 02:19 History of Present Illness: 79-year-old female with a history of cor onary disease. She was at home with her cat, when she began to get chest discomfort. She is more short of breath than usual. She was nauseated as well. She is still experiencing some pressure. Her discomfort originally she describes as a burning sensation deep in her chest, which she felt with her prior episodes requiring stents. Related Data Home Medications Medication Instructions Recorded Confirmed allopurinol 100 mg tablet 100 mg PO BEDTIME 09/08/19 02/16/24 amitriptyline 25 mg tablet 25 mg PO BEDTIME 09/08/19 02/16/24 pantoprazole 40 mg tablet,delayed 40 mg PO QAM 09/08/19 02/16/24 release acetaminophen 650 mg 1,300 mg PO BID Pain 07/30/20 02/16/24 tablet,extended release (Tylenol Arthritis Pain) baclofen 5 mg tablet 5 mg PO BEDTIME 05/23/21 02/16/24 gabapentin 300 mg capsule 300 mg PO TID 05/23/21 02/16/24 levothyroxine 50 mcg tablet 50 mcg PO BEDTIME 05/23/21 02/16/24 aspirin 81 mg tablet,delayed 81 mg PO QAM 10/20/22 02/16/24 release empagliflozin 10 mg tablet 10 mg PO QAM 10/20/22 02/16/24 (Jardiance) Previous Rx's Medication Instructions Recorded nitroglycerin 0.4 mg sublingual 0.4 mg sublingual Q5M PRN chest 04/28/21 tablet (Nitrostat) pain #25 tabs ticagrelor 90 mg tablet (Brilinta) 90 mg PO BID #180 tabs 08/27/21 insulin glargine 100 unit/mL (3 10 unit (0.1 mL) SUBCUT QAM #15 mL 10/22/22 mL) subcutaneous pen (Lantus Solostar U-100 Insulin) metoprolol tartrate 25 mg tablet 25 mg PO BID@0900,2100 #120 tabs 11/27/22 cefpodoxime 100 mg tablet 100 mg PO BID #10 tabs 08/17/23 atorvastatin 80 mg tablet 80 mg PO BEDTIME #90 tabs 11/10/23 albuterol sulfate 90 mcg/actuation 2 inh inhalation Q4H PRN shortness 05/21/24 aerosol inhaler of breath or wheezing #6.7 grams azithromycin 250 mg tablet See Rx Instructions PO .COMPLEX #6 05/21/24 (Zithromax) tabs cefdinir 300 mg capsule 300 mg PO BID #14 caps 05/21/24 Allergies Allergy/AdvReac Type Severity Reaction Status Date / Time codeine Allergy Unknown Unknown Verified 02/16/24 15:38 tetanus and diphtheria Allergy Unknown Verified 02/16/24 15:38 toxoids Tetanus Vaccines and Toxoid Allergy Unknown Verified 02/16/24 15:38 PFSH ED 2 PFSH: Medical History Chest pain Coronary stent thrombosis Had stent thrombosis x2 during hospitalization with likely mechanism of plavix resistance ST elevation myocardial infarction (STEMI) History of [place] (myocardial infarction) Coronary artery disease PAD (peripheral artery disease) HTN (hypertension) Surgical History H/O esophagogastroduodenoscopy (12/19/20) Gastric erosions Status post colonoscopy (12/19/20) Extensive diverticulosis H/O section S/P breast biopsy S/P PTCA (percutaneous transluminal coronary angioplasty) S/P appendectomy History of cholecystectomy S/P femoral-popliteal bypass surgery Family History Other CAD (coronary artery disease) Cancer Diabetes Hypertension Stroke Social History Smoking and tobacco/nicotine status: former use of tobacco/nicotine Quit status (tobacco/nicotine): has quit using Year quit tobacco: 2016 Alcohol intake: never Substance/Drug Use: never Physical Exam 2 Const: COMMON NORMALS: no acute distress GENERAL APPEARANCE: cooperative and anxious; not ill appearing and not frail appearing HENMT: COMMON NORMALS: normocephalic, atraumatic and Normal external nose present HEAD & SCALP: normocephalic and atraumatic FACE & SINUS: normal facial exam and face symmetric NOSE: Normal external nose present Eye: COMMON NORMALS: Equal, round and reactive pupils present and EOMs intact bilaterally PUPIL: Yes Equal, round and reactive pupils present Neck/C-Spine: GENERAL: Yes trachea midline Chest: CHEST: Yes Symmetrical chest wall rise Resp: COMMON NORMALS: normal respiratory effort, No retractions, No use of accessory muscles and clear to auscultation bilaterally AUSCULTATION: clear to auscultation bilaterally Cardio: COMMON NORMALS: regular rate and regular rhythm RATE: regular rate RHYTHM: regular rhythm GI: COMMON NORMALS: Normal to inspection, nondistended, normoactive bowel sounds present Extremity: COMMON NORMALS: no pedal edema Neuro: DEBRA COMA SCALE: document GCS findings Debra coma scale eye opening: Spontaneous [place] coma scale verbal response: Orientated Debra coma scale motor response: Obey commands [place] coma scale total score: 15 S ENSORY EXAM: Yes extremities (intact) Psych: COMMON NORMALS: speech normal SPEECH: Yes normal speech Skin: COMMON NORMALS: no rashes or lesions noted GENERAL SKIN EXAM: no rashes or lesions noted Course 2 Vital Signs: Vital signs: Vital Signs Temperature 98.0 F 05/21/24 02:15 Pulse Rate 96 05/21/24 05:48 Respiratory Rate 15 05/21/24 05:16 Blood Pressure 147/91 05/21/24 05:48 Pulse Oximetry 96 05/21/24 05:48 Oxygen Delivery Me thod Room Air 05/21/24 02:15 MDM - Chest Pain Medical Decision Making X-ray showed bibasilar infiltrates suspicious for pneumonia. White blood cell count is 12. Hemoglobin 10.5. Her first troponin is normal at 8. Second [address] wave changes on EKG She received IV Rocephin and Zithromax here. Saturations have been 90% and above. Her delta troponin is normal at 2 hours. She will be allowed discharge home with treatment for pneumonia. she knows to return for any worsening symptoms despite treatment. Lab Data 05/21/24 02:24 05/21/24 02:24 Radiology Impressions Chest X-Ray 05/21/24 02:32 IMPRESSION: Bibasilar infiltrates. Suspicious for pneumonia. Laboratory Results WBC 11.84 10^3/uL (3.29-11.43) H 05/21/24 02:24 RBC 5.04 10^6/uL (3.85-5.65) 05/21/24 02:24 Hgb 10.50 g/dL (11.27-16.99) L 05/21/24 02:24 Hct 38.3 % (36-47) 05/21/24 02:24 MCV 76.0 fl (85-98) L 05/21/24 02:24 MCH 20.8 pg (27-33) L 05/21/24 02:24 MCHC 27.4 g/dL (30-55) L 05/21/24 02:24 RDW 19.7 % (12.1-15.1) H 05/21/24 02:24 Plt Count 324 10^3/cmm (157-399) 05/21/24 02:24 MPV 9.8 fL (7.4-10.4) 05/21/24 02:24 Neut % (Auto) 57.2 % 05/21/24 02:24 Lymph % (Auto) 32.3 % 05/21/24 02:24 [place] % (Auto) 6.3 % 05/21/24 02:24 Eos % (Auto) 2.9 % 05/21/24 02:24 Baso % (Auto) 0.8 % 05/21/24 02:24 Neut # (Auto) 6.77 10^3/uL (1.8-7.7) 05/21/24 02:24 Lymph # (Auto) 3.8 10^3/uL (0.8-4.8) 05/21/24 02:24 [place] # (Auto) 0.8 10^3/uL (0.2-0.9) 05/21/24 02:24 Eos # (Auto) 0.3 10^3/uL (0.0-0.8) 05/21/24 02:24 Baso # (Auto) 0.1 10^3/uL (0.0-0.1) 05/21/24 02:24 Nucleated RBC % (auto) 0.2 % 05/21/24 02:24 Nucleated RBCs # 0.0 /100WBC 05/21/24 02:24 Sodium 143 mmol/L (136-145) 05/21/24 02:24 Potassium 4.2 mmol/L (3.5-5.1) 05/21/24 02:24 Chloride 108 mmol/L (98-107) H 05/21/24 02:24 Carbon Dioxide 21 mmol/L (22-29) L 05/21/24 02:24 Anion Gap 18.2 (5-19) 05/21/24 02:24 BUN 16 mg/dL (8-23) 05/21/24 02:24 Creatinine 0.9 mg/dL (0.5-0.9) 05/21/24 02:24 GFR Calculation Not Reportable 05/21/24 02:24 Glucose 150 mg/dL (65-115) H 05/21/24 02:24 Calculated Osmolality 300 mOsm/kg (285-295) H 05/21/24 02:24 Calcium 8.6 mg/dL (8.5-10.5) 05/21/24 02:24 Total Bilirubin 0.7 mg/dL (0.15-1.2) 05/21/24 02:24 Direct Bilirubin 0.20 mg/dL (0.00-0.30) 05/21/24 02:24 AST 24 U/L (0-32) 05/21/24 02:24 ALT 14 U/L (0-33) 05/21/24 02:24 Alkaline Phosphatase 99 U/L (35-105) 05/21/24 02:24 Troponin T Baseline 8 ng/L (0-10) 05/21/24 02:24 Troponin T 120 Minute 6.96 ng/L (0-10) 05/21/24 03:54 Delta Troponin T -1.04 ABS# (0-10) L 05/21/24 03:54 NT-Pro-B Natriuret Pep 198 pg/mL (0-450) 05/21/24 02:24 Total Protein 6.3 g/dL (6.6-8.7) L 05/21/24 02:24 Albumin 3.9 g/dL (3.5-5.2) 05/21/24 02:24 Globulin 2.4 g/dL (1.3-4.6) 05/21/24 02:24 All radiology interpretation(s) finalized by discharge Discharge Plan Discharge Patient Disposition: Home Clinical Impression: Chest pain, Pneumonia Condition: Stable Prescriptions: New albuterol sulfate 90 mcg/actuation HFA aerosol inhaler 2 inh INHALATION Q4H PRN (Reason: shortness of breath or wheezing) Qty: 6.7 1RF cefdinir 300 mg capsule 300 mg PO BID Qty: 14 0RF azithromycin [Zithromax] 250 mg tablet See Rx Instructions .ROUTE .COMPLEX Qty: 6 0RF Rx Instructions: For 250 mg dose pack: take 500 mg today (day 1), then 250 mg for 4 days (days 2-5) No Action acetaminophen [Tylenol Arthritis Pain] 650 mg tablet extended release 1,300 mg PO BID pantoprazole 40 mg tablet,delayed release (DR/EC) 40 mg PO QAM allopurinol 100 mg tablet 100 mg PO BEDTIME amitriptyline 25 mg tablet 25 mg PO BEDTIME Brilinta 90 mg tablet 90 mg PO BID Qty: 180 3RF nitroglycerin [Nitrostat] 0.4 mg tablet, sublingual 0.4 mg sublingual Q5M PRN (Reason: chest pain) Qty: 25 4RF Rx Instructions: DO NOT EXCEED 3 DOSES PER EPISODE metoprolol tartrate 25 mg tablet 25 mg PO BID@0900,2100 Qty: 120 3RF atorvastatin 80 mg tablet 80 mg PO BEDTIME Qty: 90 3RF levothyroxine 50 mcg tablet 50 mcg PO BEDTIME gabapentin 300 mg capsule 300 mg PO TID baclofen 5 mg tablet 5 mg PO BEDTIME Jardiance 10 mg tablet 10 mg PO QAM aspirin 81 mg tablet,delayed release (DR/EC) 81 mg PO QAM insulin glargine [Lantus Solostar U-100 Insulin] 100 unit/mL (3 mL) insulin pen 10 unit SUBCUT QAM Qty: 15 0RF cefpodoxime 100 mg tablet 100 mg PO BID Qty: 10 0RF Rx Instructions: must administer with a meal/food Discharge Orders: Discharge ED (Routine); Ordered 05/21/24 Ordered By: Anibal Barnes Referrals: Jenniffer Jenkins MD [Primary Care Provider] - 1-3 days Patient Instructions: Chest Pain (ED), Pneumonia (ED), Opioid Safety, Pain Management Activity Restrictions/Additional Instructions: Antibiotics as directed. Use the prescribed inhaler every 4 hours while awake for the first 48 hours whether you feel you needed or not, then you may use it as needed. Return for fever despite 2-3 more doses of antibiotics, worsening shortness of breath, worsening chest discomfort, other concerning symptoms. Call your doctor Wednesday morning for an appointment for follow-up. Coding Level of Care Code ED Program Coordinator Executive Education for [employer]
[2024-05-21] MEDS: cefTRIAXone 1,000 mg SDV 1000 MG IVP (04:09)
[2024-05-21 04:28] LABS: Troponin 5 2HR 6.96 ng/L (0-10)
[2024-05-21] MEDS: AZITHROMYCIN ADD-Vantage 500 MG in 0.9% NaCl ADD-Vantage 250 ML 250 MG IV (04:28)
[2024-05-21 04:30] LABS: Troponin 5 2HR Delta -1.04 ABS# (0-10)
--- NOTE | 2024-05-21 04:34 | ECG_ITS ---
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 Measurements Intervals [place] Rate: 103 P: 61 [place]: 166 QRS: 62 QRSD: 88 T: 57 QT: 335 QTc: 440 Interpretive Statements SINUS TACHYCARDIA ST DEPRESSION OVER Anterior leads, consider ischemia Compared to ECG 05/21/2024 02:07:31 ST (T wave) deviation now present T-wave abnormality no longer present Electronically Signed On 05-21-2024 14:11:12 DIRECTOR HEDIS by Alexandrea Martines M.D. [id number]
== END 2024-05-21 05:30 | disposition home or self-care (01) ==
PROVIDERS: Emergency Provider Emergency Medicine; PCP Internal Medicine
DX: J18.9 Pneumonia, unspecified organism (principal); Z79.82 Long term (current) use of aspirin; Z79.4 Long term (current) use of insulin; Z87.891 Personal history of nicotine dependence; I10 Essential (primary) hypertension; I25.10 Atherosclerotic heart disease of native coronary artery without angina pectoris; I25.2 Old myocardial infarction
CPT/HCPCS: 71045; 80048; 80076; 83880; 84484; 85025; 93005; 96374; 96375; 99285; J0456; J0696; J2270; J2405; J7050

== ENCOUNTER 2024-07-12 13:36 | Emergency (ER) | payer MEDICARE, SELFPAY ==
[2024-07-12] VITALS (9 sets, daily range): BP systolic 127–181; BP diastolic 67–98; PULSE 101–123; RESP 18–25; TEMP 36.3; O2SAT 85–93; BMI 30.1
--- NOTE | 2024-07-12 13:43 | ECG_ITS ---
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 Measurements Intervals [place] Rate: 124 P: 55 OK: 160 QRS: 23 QRSD: 90 T: 32 QT: 337 QTc: 484 Interpretive Statements SINUS TACHYCARDIA MODERATE ST DEPRESSION [0.05+ mV ST DEPRESSION] Compared to ECG 05/21/2024 04:34:03 Possible ischemia no longer present ST (T wave) deviation still present Electronically Signed On 07-12-2024 17:38:36 PRINTING PRESSMAN by Meliton Ballard M.D. [email or web address]
--- NOTE | 2024-07-12 13:59 | XRR_ITS ---
PROCEDURE INFORMATION: Exam: XR Chest Exam date and time: 07/12/2024 2:15 PM Age: 79 years old Clinical indication: Pain; Chest pressure; Additional info: Chest pain TECHNIQUE: Imaging protocol: Radiologic exam of the chest. Views: 1 view. COMPARISON: CR XR chest 1V portable [id number] 05/21/2024 2:33 AM FINDINGS: Lungs: Unremarkable. No consolidation. Pleural spaces: Unremarkable. No pleural effusion. No pneumothorax. Heart/Mediastinum: Unremarkable. No cardiomegaly. Bones/joints: Unremarkable. XR/XR chest 1V portable [id number] IMPRESSION: No acute findings.
--- NOTE | 2024-07-12 14:02 | ED_ITS ---
Documented by User: Marnie Alberto MD 07/12/24 17:14 HPI - Abdominal Pain 2 General: Chief Complaint: Abdominal Pain Stated Complaint: abd pain/sob Time Seen by Provider: 07/12/24 13:54 History of Present Illness: This patient is an 79-year-old presenting with abdominal, epigastric, chest pain. She reports that this started last night and she has had constant symptoms since then. Nothing makes it better or worse. She has just been sitting around because she does not feel like she could walk around due to her symptoms. She feels short of breath. She has had intermittent constipation and diarrhea for some time with no change recently. She has had nausea but no vomiting. She has cough only when she feels like she is going to throw up. She denies fevers. She denies leg pain or swelling. She has a history of coronary artery disease with 4 stents. She was seen here about a month and a half ago with chest pain and at that time was diagnosed with pneumonia. She was ruled out for cardiac. She also has a history of diabetes. Additionally she has GERD and high blood pressure. She uses an albuterol inhaler. She is on a significant number of medications. Related Data Home Medications Medication Instructions Recorded Confirmed allopurinol 100 mg tablet 100 mg PO BEDTIME 09/08/19 07/12/24 amitriptyline 25 mg tablet 25 mg PO BEDTIME 09/08/19 07/12/24 pantoprazole 40 mg tablet,delayed 40 mg PO QAM 09/08/19 07/12/24 release acetaminophen 650 mg 1,300 mg PO BID Pain 07/30/20 07/12/24 tablet,extended release (Tylenol Arthritis Pain) gabapentin 300 mg capsule 300 mg PO TID 05/23/21 07/12/24 empagliflozin 10 mg tablet 10 mg PO QAM 10/20/22 07/12/24 (Jardiance) insulin glargine 100 unit/mL (3 25 unit SUBCUT DAILY 07/12/24 07/12/24 mL) subcutaneous pen (Lantus Solostar U-100 Insulin) levothyroxine 75 mcg tablet 75 mcg PO DAILY 07/12/24 07/12/24 Previous Rx's Medication Instructions Recorded nitroglycerin 0.4 mg sublingual 0.4 mg sublingual Q5M PRN chest 04/28/21 tablet (Nitrostat) pain #25 tabs ticagrelor 90 mg tablet (Brilinta) 90 mg PO BID #180 tabs 08/27/21 metoprolol tartrate 25 mg tablet 25 mg PO BID@0900,2100 #120 tabs 11/27/22 atorvastatin 80 mg tablet 80 mg PO BEDTIME #90 tabs 11/10/23 albuterol sulfate 90 mcg/actuation 2 inh inhalation Q4H PRN shortness 05/21/24 aerosol inhaler of breath or wheezing #6.7 grams cefdinir 300 mg capsule 300 mg PO BID 5 days #10 caps 07/12/24 Allergies Allergy/AdvReac Type Severity Reaction Status Date / Time codeine Allergy Unknown Unknown Verified 02/16/24 15:38 tetanus and diphtheria Allergy Unknown Verified 02/16/24 15:38 toxoids Tetanus Vaccines and Toxoid Allergy Unknown Verified 02/16/24 15:38 PFSH ED 2 PFSH: Medical History Chest pain Coronary stent thrombosis Had stent thrombosis x2 during hospitalization with likely mechanism of plavix resistance ST elevation myocardial infarction (STEMI) History of NC (myocardial infarction) Coronary artery disease PAD (peripheral artery disease) HTN (hypertension) Surgical History H/O esophagogastroduodenoscopy (12/19/20) Gastric erosions Status post colonoscopy (12/19/20) Extensive diverticulosis H/O section S/P breast biopsy S/P PTCA (percutaneous transluminal coronary angioplasty) S/P appendectomy History of cholecystectomy S/P femoral-popliteal bypass surgery Family History Other CAD (coronary artery disease) Cancer Diabetes Hypertension Stroke Social History Smoking and tobacco/nicotine status: former use of tobacco/nicotine Quit status (tobacco/nicotine): has quit using Year quit tobacco: 2016 Alcohol intake: never Substance/Drug Use: never Physical Exam 2 Const: COMMON NORMALS: no acute distress, patient oriented x3, no limitations and alert GENERAL APPEARANCE: cooperative and comfortable OTHER: Anxious, intermittently tearful HENMT: HEAD & SCALP: normal to inspection FACE & SINUS: normal facial exam Eye: GENERAL EYE: appearance normal, both eyes and all related structures Neck/C-Spine: COMMON NORMALS: supple, no meningeal signs and no JVD Chest: COMMONS NORMALS: normal inspection of the chest Resp: COMMON NORMALS: normal respiratory effort OTHER: Mild scattered rhonchi. No consolidation Cardio: COMMON NORMALS: no JVD and No murmurs present (Cardio) RATE: t achycardic GI: COMMON NORMALS: Normal to inspection, nondistended, normoactive bowel sounds present and Soft to palpation INSPECTION: Yes normal to inspection AUSCULTATION: Yes normoactive bowel sounds PALPATION: Yes Soft to palpation OTHER: Complains of tenderness diffusely. No guarding. No distention. Back/Pelvis: COMMON NORMALS: thoracic and lumbar spine normal to inspection Extremity: COMMON NORMALS: normal to inspection Neuro: COMMON NORMALS: patient oriented x3, moves all extremities, no focal motor deficits and no sensory deficits noted SENSORIUM/ORIENTATION: Yes alert MENINGEAL SIGNS: Yes no meningeal signs Psych: COMMON NORMALS: mental status grossly normal and cooperative OTHER: Tearful at times, anxious Skin: COMMON NORMALS: no rashes or lesions noted and turgor normal GENERAL SKIN EXAM: no rashes or lesions noted and turgor normal Course 2 Vital Signs: Vital signs: Vital Signs Temperature 97.3 F L 07/12/24 13:46 Pulse Rate 107 H 07/12/24 17:06 Respiratory Rate 18 07/12/24 14:46 Blood Pressure 166/79 07/12/24 17:06 Pulse Oximetry 93 07/12/24 17:06 Oxygen Delivery Me thod Room Air 07/12/24 13:46 MDM - Abdominal Pain Medical Decision Making History of cardiac disease. Presenting with chest, epigastric, abdominal pain. 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 She has a history of femoropopliteal bypass. Abdominal pain in such a patient could be mesenteric ischemia and a lactic acid was ordered for this reason. She does not appear to be septic at this time. She was given some fluid for her tachycardia. She was given morphine for pain and ondansetron for her nausea. Cardiac evaluation including serial EKGs and serial troponins is pending. Consider CT scan. Lactic slightly elevated and CO2 slightly low. CT chest abd pelvis pending. Troponin with a delta around 4 after two hours. Her EKG has some new ST depression and inverted t waves - present to a slight degree on the EKG done on her last ED visit - but more pronounced today. In light of the borderline delta troponin - seems hauser to wait for the third troponin and EKG. Also waiting on a repeat lactic acid. UA shows evidence of a UTI. Plan for IV abx here, GI cocktail. Disposition with be transferred to the on coming physician. Lab Data 07/12/24 14:08 07/12/24 14:08 Labs/Radiology: Radiology Impressions Chest X-Ray 07/12/24 13:59 IMPRESSION: No acute findings. Chest/Abdomen/Pelvis CT 07/12/24 14:45 IMPRESSION: 1. No acute findings. 2. Chronic lung changes noted IMPRESSION: 1. No acute findings. 2. Periampullary diverticulum 3. 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 Laboratory Results WBC 9.41 10^3/uL (3.29-11.43) 07/12/24 14:08 RBC 5.08 10^6/uL (3.85-5.65) 07/12/24 14:08 Hgb 10.70 g/dL (11.27-16.99) L 07/12/24 14:08 Hct 38.5 % (36-47) 07/12/24 14:08 MCV 75.8 fl (85-98) L 07/12/24 14:08 MCH 21.1 pg (27-33) L 07/12/24 14:08 MCHC 27.8 g/dL (30-55) L 07/12/24 14:08 RDW 19.7 % (12.1-15.1) H 07/12/24 14:08 Plt Count 313 10^3/cmm (157-399) 07/12/24 14:08 MPV 10.0 fL (7.4-10.4) 07/12/24 14:08 Neut % (Auto) 75.4 % 07/12/24 14:08 Lymph % (Auto) 15.3 % 07/12/24 14:08 [place] % (Auto) 4.9 % 07/12/24 14:08 Eos % (Auto) 3.0 % 07/12/24 14:08 Baso % (Auto) 0.7 % 07/12/24 14:08 Neut # (Auto) 7.09 10^3/uL (1.8-7.7) 07/12/24 14:08 Lymph # (Auto) 1.4 10^3/uL (0.8-4.8) 07/12/24 14:08 [place] # (Auto) 0.5 10^3/uL (0.2-0.9) 07/12/24 14:08 Eos # (Auto) 0.3 10^3/uL (0.0-0.8) 07/12/24 14:08 Baso # (Auto) 0.1 10^3/uL (0.0-0.1) 07/12/24 14:08 Nucleated RBC % (auto) 0 % 07/12/24 14:08 Nucleated RBCs # 0.0 /100WBC 07/12/24 14:08 Sodium 140 mmol/L (136-145) 07/12/24 14:08 Potassium 3.9 mmol/L (3.5-5.1) 07/12/24 14:08 Chloride 104 mmol/L (98-107) 07/12/24 14:08 Carbon Dioxide 18 mmol/L (22-29) L 07/12/24 14:08 Anion Gap 21.9 (5-19) H 07/12/24 14:08 BUN 14 mg/dL (8-23) 07/12/24 14:08 Creatinine 1.0 mg/dL (0.5-0.9) H 07/12/24 14:08 GFR Calculation Not Reportable 07/12/24 14:08 Glucose 184 mg/dL (65-115) H 07/12/24 14:08 Calculated Osmolality 295 mOsm/kg (285-295) 07/12/24 14:08 Lactic Acid 2.9 mmol/L (0.5-2.2) H 07/12/24 14:08 Lactic Acid (Sepsis) 1.0 mmol/L (0.5-2.2) 07/12/24 17:06 Calcium 8.9 mg/dL (8.5-10.5) 07/12/24 14:08 Total Bilirubin 0.7 mg/dL (0.15-1.2) 07/12/24 14:08 AST 22 U/L (0-32) 07/12/24 14:08 ALT 11 U/L (0-33) 07/12/24 14:08 Alkaline Phosphatase 104 U/L (35-105) 07/12/24 14:08 Troponin T Baseline 7 ng/L (0-10) 07/12/24 14:08 Troponin T 120 Minute 11.60 ng/L (0-10) H 07/12/24 16:10 Delta Troponin T 4.60 ABS# (0-10) 07/12/24 16:10 NT-Pro-B Natriuret Pep 319 pg/mL (0-450) 07/12/24 14:08 Total Protein 7.4 g/dL (6.6-8.7) 07/12/24 14:08 Albumin 3.6 g/dL (3.5-5.2) 07/12/24 14:08 Globulin 3.8 g/dL (1.3-4.6) 07/12/24 14:08 Lipase 58 U/L (13-60) 07/12/24 14:08 Urine Color Yellow (Yellow) 07/12/24 15:20 Urine Appearance Clear (CLEAR) 07/12/24 15:20 Urine pH 5.0 (5-7) 07/12/24 15:20 Ur Specific [place] 1.029 (1.005-1.030) 07/12/24 15:20 Urine Protein Negative (Negative) 07/12/24 15:20 Urine Glucose (UA) 3+ (Normal) H 07/12/24 15:20 Urine Ketones 1+ (Negative) H 07/12/24 15:20 Urine Blood Negative (Negative) 07/12/24 15:20 Urine Nitrate Positive (Negative) A 07/12/24 15:20 Urine Bilirubin Negative (Negative) 07/12/24 15:20 Urine Urobilinogen 0.2 mg/dL (Negative) 07/12/24 15:20 Ur Leukocyte Esterase Negative (Negative) 07/12/24 15:20 Urine RBC 0-2 /hpf (0-2) 07/12/24 15:20 Urine WBC 6-10 /hpf (0-5) 07/12/24 15:20 Ur Squamous Epith Cells 6-10 /hpf (0-5) 07/12/24 15:20 Amorphous Sediment Not Reportable 07/12/24 15:20 Urine Bacteria 4+ /hpf (NONE) H 07/12/24 15:20 Hyaline Casts 0-4 /lpf H 07/12/24 15:20 Discharge Plan Discharge Patient Disposition: Home Clinical Impression: Urinary tract infection Condition: Stable Prescriptions: New cefdinir 300 mg capsule 300 mg PO BID 5 Days Qty: 10 0RF No Action acetaminophen [Tylenol Arthritis Pain] 650 mg tablet extended release 1,300 mg PO BID pantoprazole 40 mg tablet,delayed release (DR/EC) 40 mg PO QAM allopurinol 100 mg tablet 100 mg PO BEDTIME amitriptyline 25 mg tablet 25 mg PO BEDTIME Brilinta 90 mg tablet 90 mg PO BID Qty: 180 3RF nitroglycerin [Nitrostat] 0.4 mg tablet, sublingual 0.4 mg sublingual Q5M PRN (Reason: chest pain) Qty: 25 4RF Rx Instructions: DO NOT EXCEED 3 DOSES PER EPISODE metoprolol tartrate 25 mg tablet 25 mg PO BID@0900,2100 Qty: 120 3RF atorvastatin 80 mg tablet 80 mg PO BEDTIME Qty: 90 3RF gabapentin 300 mg capsule 300 mg PO TID Jardiance 10 mg tablet 10 mg PO QAM albuterol sulfate 90 mcg/actuation HFA aerosol inhaler 2 inh INHALATION Q4H PRN (Reason: shortness of breath or wheezing) Qty: 6.7 1RF levothyroxine 75 mcg tablet 75 mcg PO DAILY insulin glargine [Lantus Solostar U-100 Insulin] 100 unit/mL (3 mL) insulin pen 25 unit SUBCUT DAILY Discharge Orders: Discharge ED (Routine); Ordered 07/12/24 Ordered By: Miroslava Arias Referrals: Jenniffer Jenkins MD [Primary Care Provider] - Discharge Diet: Usual diet Discharge Activity: Resume usual activity Patient Instructions: Urinary Tract Infection in Older Adults (ED), Opioid Safety, Pain Management Activity Restrictions/Additional Instructions: Thank you for choosing [facility] for your healthcare needs today. Please realize this is an emergency room and that we are providing you with a medical screening exam and this may not be complete and all inclusive of all the testing and or work up that you may need to determine your ailment or severity of your illness. You have been screened and evaluated and felt safe for discharge. Health conditions do change or evolve sometimes and as such it is important that you follow up with your Primary Doctor to be re checked, 3-5 days is a general good time frame for follow up. You are always welcome to return to the ED for re assessment if your symptoms are worsening or you have new concerns Coding Level of Care Code ED Physical Therapy Supervisor for Chg Fwd Documented by User: Miroslava Arias MD 07/12/24 17:51 HPI - Abdominal Pain 2 General: Chief Complaint: Abdominal Pain Stated Complaint: abd pain/sob Time Seen by Provider: 07/12/24 13:54 Related Data Home Medications Medication Instructions Recorded Confirmed allopurinol 100 mg tablet 100 mg PO BEDTIME 09/08/19 07/12/24 amitriptyline 25 mg tablet 25 mg PO BEDTIME 09/08/19 07/12/24 pantoprazole 40 mg tablet,delayed 40 mg PO QAM 09/08/19 07/12/24 release acetaminophen 650 mg 1,300 mg PO BID Pain 07/30/20 07/12/24 tablet,extended release (Tylenol Arthritis Pain) gabapentin 300 mg capsule 300 mg PO TID 05/23/21 07/12/24 empagliflozin 10 mg tablet 10 mg PO QAM 10/20/22 07/12/24 (Jardiance) insulin glargine 100 unit/mL (3 25 unit SUBCUT DAILY 07/12/24 07/12/24 mL) subcutaneous pen (Lantus Solostar U-100 Insulin) levothyroxine 75 mcg tablet 75 mcg PO DAILY 07/12/24 07/12/24 Previous Rx's Medication Instructions Recorded nitroglycerin 0.4 mg sublingual 0.4 mg sublingual Q5M PRN chest 04/28/21 tablet (Nitrostat) pain #25 tabs ticagrelor 90 mg tablet (Brilinta) 90 mg PO BID #180 tabs 02/09/22 metoprolol tartrate 25 mg tablet 25 mg PO BID@0900,2100 #120 tabs 11/27/22 atorvastatin 80 mg tablet 80 mg PO BEDTIME #90 tabs 11/10/23 albuterol sulfate 90 mcg/actuation 2 inh inhalation Q4H PRN shortness 05/21/24 aerosol inhaler of breath or wheezing #6.7 grams cefdinir 300 mg capsule 300 mg PO BID 5 days #10 caps 07/12/24 Allergies Allergy/AdvReac Type Severity Reaction Status Date / Time codeine Allergy Unknown Unknown Verified 02/16/24 15:38 tetanus and diphtheria Allergy Unknown Verified 02/16/24 15:38 toxoids Tetanus Vaccines and Toxoid Allergy Unknown Verified 02/16/24 15:38 PFS ED 2 PFSH: Medical History Chest pain Coronary stent thrombosis Had stent thrombosis x2 during hospitalization with likely mechanism of plavix resistance ST elevation myocardial infarction (STEMI) History of NC (myocardial infarction) Coronary artery disease PAD (peripheral artery disease) HTN (hypertension) Surgical History H/O esophagogastroduodenoscopy (12/19/20) Gastric erosions Status post colonoscopy (12/19/20) Extensive diverticulosis H/O section S/P breast biopsy S/P PTCA (percutaneous transluminal coronary angioplasty) S/P appendectomy History of cholecystectomy S/P femoral-popliteal bypass surgery Family History Other CAD (coronary artery disease) Cancer Diabetes Hypertension Stroke Social History Smoking and tobacco/nicotine status: former use of tobacco/nicotine Quit status (tobacco/nicotine): has quit using Year quit tobacco: 2016 Alcohol intake: never Substance/Drug Use: never Course 2 Vital Signs: Vital signs: Vital Signs Temperature 97.3 F L 07/12/24 13:46 Pulse Rate 107 H 07/12/24 17:06 Respiratory Rate 18 07/12/24 14:46 Blood Pressure 166/79 07/12/24 17:06 Pulse Oximetry 93 07/12/24 17:06 Oxygen Delivery Ut thod Room Air 07/12/24 13:46 MDM - Abdominal Pain Medical Decision Making History of cardiac disease. Presenting with chest, epigastric, abdominal pain. 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 She has a history of femoropopliteal bypass. Abdominal pain in such a patient could be mesenteric ischemia and a lactic acid was ordered for this reason. She does not appear to be septic at this time. She was given some fluid for her tachycardia. She was given morphine for pain and ondansetron for her nausea. Cardiac evaluation including serial EKGs and serial troponins is pending. Consider CT scan. Lactic slightly elevated and CO2 slightly low. CT chest abd pelvis pending. Troponin with a delta around 4 after two hours. Her EKG has some new ST depression and inverted t waves - present to a slight degree on the EKG done on her last ED visit - but more pronounced today. In light of the borderline delta troponin - seems hauser to wait for the third troponin and EKG. Also waiting on a repeat lactic acid. UA shows evidence of a UTI. Plan for IV abx here, GI cocktail. Disposition with be transferred to the on coming physician. Patient has a urinary tract infection I am discharging her. She was transferred to ca at shift change. Lab Data 07/12/24 14:08 07/12/24 14:08 Labs/Radiology: Radiology Impressions Chest X-Ray 07/12/24 13:59 IMPRESSION: No acute findings. Chest/Abdomen/Pelvis CT 07/12/24 14:45 IMPRESSION: 1. No acute findings. 2. Chronic lung changes noted IMPRESSION: 1. No acute findings. 2. Periampullary diverticulum 3. 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 Laboratory Results WBC 9.41 10^3/uL (3.29-11.43) 07/12/24 14:08 RBC 5.08 10^6/uL (3.85-5.65) 07/12/24 14:08 Hgb 10.70 g/dL (11.27-16.99) L 07/12/24 14:08 Hct 38.5 % (36-47) 07/12/24 14:08 MCV 75.8 fl (85-98) L 07/12/24 14:08 MCH 21.1 pg (27-33) L 07/12/24 14:08 MCHC 27.8 g/dL (30-55) L 07/12/24 14:08 RDW 19.7 % (12.1-15.1) H 07/12/24 14:08 Plt Count 313 10^3/cmm (157-399) 07/12/24 14:08 MPV 10.0 fL (7.4-10.4) 07/12/24 14:08 Neut % (Auto) 75.4 % 07/12/24 14:08 Lymph % (Auto) 15.3 % 07/12/24 14:08 [place] % (Auto) 4.9 % 07/12/24 14:08 Eos % (Auto) 3.0 % 07/12/24 14:08 Baso % (Auto) 0.7 % 07/12/24 14:08 Neut # (Auto) 7.09 10^3/uL (1.8-7.7) 07/12/24 14:08 Lymph # (Auto) 1.4 10^3/uL (0.8-4.8) 07/12/24 14:08 [place] # (Auto) 0.5 10^3/uL (0.2-0.9) 07/12/24 14:08 Eos # (Auto) 0.3 10^3/uL (0.0-0.8) 07/12/24 14:08 Baso # (Auto) 0.1 10^3/uL (0.0-0.1) 07/12/24 14:08 Nucleated RBC % (auto) 0 % 07/12/24 14:08 Nucleated RBCs # 0.0 /100WBC 07/12/24 14:08 Sodium 140 mmol/L (136-145) 07/12/24 14:08 Potassium 3.9 mmol/L (3.5-5.1) 07/12/24 14:08 Chloride 104 mmol/L (98-107) 07/12/24 14:08 Carbon Dioxide 18 mmol/L (22-29) L 07/12/24 14:08 Anion Gap 21.9 (5-19) H 07/12/24 14:08 BUN 14 mg/dL (8-23) 07/12/24 14:08 Creatinine 1.0 mg/dL (0.5-0.9) H 07/12/24 14:08 GFR Calculation Not Reportable 07/12/24 14:08 Glucose 184 mg/dL (65-115) H 07/12/24 14:08 Calculated Osmolality 295 mOsm/kg (285-295) 07/12/24 14:08 Lactic Acid 2.9 mmol/L (0.5-2.2) H 07/12/24 14:08 Lactic Acid (Sepsis) 1.0 mmol/L (0.5-2.2) 07/12/24 17:06 Calcium 8.9 mg/dL (8.5-10.5) 07/12/24 14:08 Total Bilirubin 0.7 mg/dL (0.15-1.2) 07/12/24 14:08 AST 22 U/L (0-32) 07/12/24 14:08 ALT 11 U/L (0-33) 07/12/24 14:08 Alkaline Phosphatase 104 U/L (35-105) 07/12/24 14:08 Troponin T Baseline 7 ng/L (0-10) 07/12/24 14:08 Troponin T 120 Minute 11.60 ng/L (0-10) H 07/12/24 16:10 Delta Troponin T 4.60 ABS# (0-10) 07/12/24 16:10 NT-Pro-B Natriuret Pep 319 pg/mL (0-450) 07/12/24 14:08 Total Protein 7.4 g/dL (6.6-8.7) 07/12/24 14:08 Albumin 3.6 g/dL (3.5-5.2) 07/12/24 14:08 Globulin 3.8 g/dL (1.3-4.6) 07/12/24 14:08 Lipase 58 U/L (13-60) 07/12/24 14:08 Urine Color Yellow (Yellow) 07/12/24 15:20 Urine Appearance Clear (CLEAR) 07/12/24 15:20 Urine pH 5.0 (5-7) 07/12/24 15:20 Ur Specific [place] 1.029 (1.005-1.030) 07/12/24 15:20 Urine Protein Negative (Negative) 07/12/24 15:20 Urine Glucose (UA) 3+ (Normal) H 07/12/24 15:20 Urine Ketones 1+ (Negative) H 07/12/24 15:20 Urine Blood Negative (Negative) 07/12/24 15:20 Urine Nitrate Positive (Negative) A 07/12/24 15:20 Urine Bilirubin Negative (Negative) 07/12/24 15:20 Urine Urobilinogen 0.2 mg/dL (Negative) 07/12/24 15:20 Ur Leukocyte Esterase Negative (Negative) 07/12/24 15:20 Urine RBC 0-2 /hpf (0-2) 07/12/24 15:20 Urine WBC 6-10 /hpf (0-5) 07/12/24 15:20 Ur Squamous Epith Cells 6-10 /hpf (0-5) 07/12/24 15:20 Amorphous Sediment Not Reportable 07/12/24 15:20 Urine Bacteria 4+ /hpf (NONE) H 07/12/24 15:20 Hyaline Casts 0-4 /lpf H 07/12/24 15:20 All radiology interpretation(s) finalized by discharge Discharge Plan Discharge Patient Disposition: Home Clinical Impression: Urinary tract infection Condition: Stable Prescriptions: New cefdinir 300 mg capsule 300 mg PO BID 5 Days Qty: 10 0RF No Action acetaminophen [Tylenol Arthritis Pain] 650 mg tablet extended release 1,300 mg PO BID pantoprazole 40 mg tablet,delayed release (DR/EC) 40 mg PO QAM allopurinol 100 mg tablet 100 mg PO BEDTIME amitriptyline 25 mg tablet 25 mg PO BEDTIME Brilinta 90 mg tablet 90 mg PO BID Qty: 180 3RF nitroglycerin [Nitrostat] 0.4 mg tablet, sublingual 0.4 mg sublingual Q5M PRN (Reason: chest pain) Qty: 25 4RF Rx Instructions: DO NOT EXCEED 3 DOSES PER EPISODE metoprolol tartrate 25 mg tablet 25 mg PO BID@0900,2100 Qty: 120 3RF atorvastatin 80 mg tablet 80 mg PO BEDTIME Qty: 90 3RF gabapentin 300 mg capsule 300 mg PO TID Jardiance 10 mg tablet 10 mg PO QAM albuterol sulfate 90 mcg/actuation HFA aerosol inhaler 2 inh INHALATION Q4H PRN (Reason: shortness of breath or wheezing) Qty: 6.7 1RF levothyroxine 75 mcg tablet 75 mcg PO DAILY insulin glargine [Lantus Solostar U-100 Insulin] 100 unit/mL (3 mL) insulin pen 25 unit SUBCUT DAILY Discharge Orders: Discharge ED (Routine); Ordered 07/12/24 Ordered By: Miroslava Arias Referrals: Jenniffer Jenkins MD [Primary Care Provider] - Discharge Diet: Usual diet Discharge Activity: Resume usual activity Patient Instructions: Urinary Tract Infection in Older Adults (ED), Opioid Safety, Pain Management Activity Restrictions/Additional Instructions: Thank you for choosing [facility] for your healthcare needs today. Please realize this is an emergency room and that we are providing you with a medical screening exam and this may not be complete and all inclusive of all the testing and or work up that you may need to determine your ailment or severity of your illness. You have been screened and evaluated and felt safe for discharge. Health conditions do change or evolve sometimes and as such it is important that you follow up with your Primary Doctor to be re checked, 3-5 days is a general good time frame for follow up. You are always welcome to return to the ED for re assessment if your symptoms are worsening or you have new concerns Coding Level of Care Code ED Physical Therapy Supervisor for Param Carpio
[2024-07-12 14:16] LABS: Basophils # 0.1 10^3/uL (0.0-0.1); Basophils % 0.7 %; Eosinophils # 0.3 10^3/uL (0.0-0.8); Hematocrit 38.5 % (36-47); Lymphocytes # 1.4 10^3/uL (0.8-4.8); Lymphocytes % 15.3 %; Mean Corpuscular HGB Conc 27.8 g/dL (30-55); Mean Corpuscular Hemoglobin 21.1 pg (27-33); Mean Corpuscular Volume 75.8 fl (85-98); Monocytes # 0.5 10^3/uL (0.2-0.9); Monocytes % 4.9 %; Neutrophils # 7.09 10^3/uL (1.8-7.7); Neutrophils % 75.4 %; Nucleated Red Blood Cells % 0 %; Platelet Count 313 10^3/cmm (157-399); Red Blood Count 5.08 10^6/uL (3.85-5.65); Red Cell Distribution Width 19.7 % (12.1-15.1); White Blood Count 9.41 10^3/uL (3.29-11.43)
[2024-07-12 14:33] LABS: Lactic Sepsis W/Reflex 2.9 mmol/L (0.5-2.2)
[2024-07-12 14:35] LABS: Troponin(5th) Baseline 7 ng/L (0-10)
[2024-07-12 14:42] LABS: Alanine Aminotransferase 11 U/L (0-33); Albumin Level 3.6 g/dL (3.5-5.2); Alkaline Phosphatase 104 U/L (35-105); Anion Gap 21.9 (5-19); Aspartate Amino Transferase 22 U/L (0-32); Blood Urea Nitrogen 14 mg/dL (8-23); Calcium 8.9 mg/dL (8.5-10.5); Carbon Dioxide 18 mmol/L (22-29); Chloride 104 mmol/L (98-107); Creatinine Clr Calc Pharmacy 44.1181; Globulin 3.8 g/dL (1.3-4.6); Glucose 184 mg/dL (65-115); Lipase 58 U/L (13-60); NT Pro B Type Natriuretic Pept 319 pg/mL (0-450); Osmolality Calculated 295 mOsm/kg (285-295); Potassium 3.9 mmol/L (3.5-5.1); Sodium 140 mmol/L (136-145); Total Bilirubin 0.7 mg/dL (0.15-1.2); Total Protein 7.4 g/dL (6.6-8.7)
--- NOTE | 2024-07-12 14:45 | CTR_ITS ---
PROCEDURE INFORMATION: Exam: CT Chest With Contrast; Diagnostic Exam date and time: 07/12/2024 3:58 PM Age: 79 years old Clinical indication: Abdominal pain; Generalized; Chest pressure; Additional info: Chest and abdominal pain TECHNIQUE: Imaging protocol: Diagnostic computed tomography of the chest with contrast. Radiation optimization: All CT scans at this facility use at least one of these dose optimization techniques: automated exposure control; mA and/or kV adjustment per patient size (includes targeted exams where dose is matched to clinical indication); or iterative reconstruction. Contrast material: OMNI 350; Contrast volume: 100 ml; Contrast route: INTRAVENOUS (IV); COMPARISON: CT angio chest PE protcl [id number] 08/17/2023 11:43 AM RADIATION DOSE METRICS: Total DLP (mGy-cm): 1169.49 FINDINGS: Lungs: Both lungs demonstrate diffuse centrilobular emphysematous changes along with chronic interstitial coarsening. No mass or infiltrate noted. Pleural spaces: Unremarkable. No pneumothorax. No pleural effusion. Heart: Unremarkable. No cardiomegaly. No pericardial effusion. Lymph nodes: Unremarkable. No enlarged lymph nodes. Vasculature: Unremarkable. No aortic aneurysm. Bones/joints: Unremarkable. No acute fracture. Soft tissues: Unremarkable. PROCEDURE INFORMATION: Exam: CT Abdomen And Pelvis With Contrast Exam date and time: 07/12/2024 3:58 PM Age: 79 years old Clinical indication: Abdominal pain; Generalized; Chest pressure; Additional info: Chest and abdominal pain TECHNIQUE: Imaging protocol: Computed tomography of the abdomen and pelvis with contrast. Radiation optimization: All CT scans at this facility use at least one of these dose optimization techniques: automated exposure control; mA and/or kV adjustment per patient size (includes targeted exams where dose is matched to clinical indication); or iterative reconstruction. Contrast material: OMNI 350; Contrast volume: 100 ml; Contrast route: INTRAVENOUS (IV); COMPARISON: CT abdomen pelvis wo con [id number] 10/20/2022 5:16 PM RADIATION DOSE METRICS: Total DLP (mGy-cm): 1169.49 FINDINGS: Lungs: Lung bases are clear. No pleural effusion. Liver: Normal. No mass. Gallbladder and biliary ducts: The gallbladder has been resected. Pancreas: Normal. No ductal dilation. Spleen: Normal. No splenomegaly. Adrenal glands: Normal. No mass. Kidneys and ureters: Normal. No hydronephrosis. Stomach and bowel: A 3.2 cm periampullary diverticulum is noted near the pancreatic head. There are multiple scattered diverticula throughout much of the colon. Appendix: No evidence of appendicitis. Intraperitoneal space: Unremarkable. No free air. No significant fluid collection. Vasculature: There is an occluded femoral/femoral bypass graft. There is chronic occlusion involving the left external iliac artery. Lymph nodes: Unremarkable. No enlarged lymph nodes. Urinary bladder: Unremarkable as visualized. Reproductive: Unremarkable as visualized. Bones/joints: Unremarkable. No acute fracture. Soft tissues: Unremarkable. CT/CT chest abdpel w/*[id number] IMPRESSION: 1. No acute findings. 2. Chronic lung changes noted IMPRESSION: 1. No acute findings. 2. Periampullary diverticulum 3. 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
[2024-07-12] MEDS: ondansetron 2 mg/ML SDV 2 mL 4 MG IVP (14:46)
[2024-07-12] MEDS: morphine 4 mg/mL SDV 1 mL IVP (14:46)
[2024-07-12] MEDS: sodium chloride 0.9% 500 ML 999 ML IV (14:46)
[2024-07-12 15:29] LABS: Bilirubin Urine Negative (Negative); Blood Urine Negative (Negative); Glucose Urine UA 3+ (Normal); Ketones Urine 1+ (Negative); Leukocyte Esterase Urine Negative (Negative); Nitrate Urine Positive (Negative); Protein Urine Negative (Negative); Specific Gravity, Urine 1.029 (1.005-1.030); Urine Appearance Clear (CLEAR); Urine Color Yellow (Yellow); Urobilinogen Urine 0.2 mg/dL (Negative)
[2024-07-12 15:32] LABS: Add Urine Microscopic? YES; Bacteria Urine 4+ /hpf; Hyaline Casts Urine 0-4 /lpf; RBC Urine 0-2 /hpf (0-2)
[2024-07-12 15:33] LABS: Add Urine Culture? Yes
--- NOTE | 2024-07-12 16:00 | ECG_ITS ---
[facility] Test Date: 2024-07-12 Pat Name: Capri Tobar Department: Room: Gender: Female Healthcare Financial Analyst: : 1945 Requested By: Marnie Phillips Order Number: [id number] Kimmy MD: Meliton Ballard M.D. Measurements Intervals [place] Rate: 99 P: 53 [place]: 175 QRS: 27 QRSD: 87 T: 16 QT: 337 QTc: 433 Interpretive Statements SINUS RHYTHM LOW QRS VOLTAGE IN PRECORDIAL LEADS [QRS DEFLECTION < 1.0 mV IN CHEST LEADS] NONSPECIFIC ST & T-WAVE ABNORMALITY Compared to ECG 07/12/2024 13:43:30 Low QRS voltage now present T-wave abnormality now present Sinus tachycardia no longer present ST (T wave) deviation no longer present Electronically Signed On 07-12-2024 17:43:43 FAMILY PARTNER by Meliton Ballard M.D. [email or web address]
[2024-07-12 16:01] LABS: Reflex Lactate Order REFLEX LACTIC ORDERD
[2024-07-12] MEDS: iohexol 350 mg/mL 500 mL Btl (per mL) IV (16:10)
--- NOTE | 2024-07-12 16:11 | PC.PHAR ---
pATIENT STATES SHE TOOK ALL HER MEDS MAYBE DAY FOR YESTERDAY ,SHE WASN'T QUIT SURE.
[2024-07-12] MEDS: lidocaine 2% viscous 15 ML, aluminum-mag hydrox-simethicon 30 ML, sucralfate oral liq 1 GM PO (17:32)
[2024-07-12] MEDS: cefTRIAXone 1,000 mg SDV 1000 MG IVP (18:18)
== END 2024-07-12 18:25 | disposition home or self-care (01) ==
PROVIDERS: Emergency Medicine; Emergency Provider Emergency Medicine; PCP Internal Medicine
DX: N39.0 Urinary tract infection, site not specified (principal); Z79.4 Long term (current) use of insulin; Z87.891 Personal history of nicotine dependence; I25.10 Atherosclerotic heart disease of native coronary artery without angina pectoris; I10 Essential (primary) hypertension
CPT/HCPCS: 36415; 71045; 71260; 74177; 80053; 81001; 83605; 83690; 83880; 84484; 85025; 87077; 87086; 87186; 93005; 96374; 96375; 99285; J0696; J2270; J2405; J7040

== ENCOUNTER 2024-08-14 23:27 | Inpatient (IN) | payer MEDICARE, SELFPAY ==
[2024-08-14 23:28] VITALS: BP 93/55; PULSE 44; RESP 16; O2SAT 100; BMI 26.5
--- NOTE | 2024-08-14 23:33 | XACV_ITS ---
Exam Room: [facility] Ht: 160 cm Wt: 47 kg BSA: 1.43 m2 Gender: Female : 1945 Any Known Allergies: Other Exam Priority: Routine Procedure(s): Procedure Description: Diagnostic procedure Procedure Description: Left Heart Catheterization Procedure Description: Left ventriculography Procedure Description: Coronary Angiography Diagnostic Cath Status: Emergency Diagnostic Findings * INDICATION: 79 year old female with past medical history of coronary artery disease, COPD who started having chest pain today. She was planning to drive down to hospital herself. Was found to be down outside. Time not known. On arrival to ER she has cold extremities and is hypothermic. However has good mentation. Having chest pain. Says she stopped taking Brilinta secondary to dark stools. Initially was bradycardic and after receiving atropine her bradycardia resolved. EKG showed acute inferior wall ST elevation [place]. * No significant disease noted in the Left Main, Left Anterior Descending, Right, or Circumflex coronary arteries. RCA has multiple prior stents that are patent. There is a dual LAD system with a large sized diagonal artery which is patent . Circumflex artery is tortuous and has mild luminal irregularities.. * Coronary angiography shows right dominance. Conclusions 1. No significant disease noted in the Left Main, Left Anterior Descending, Right, or Circumflex coronary arteries. RCA has multiple prior stents that are patent. There is a dual LAD system with a large sized diagonal artery which is patent . Circumflex artery is tortuous and has mild luminal irregularities.. 2. EKG changes secondary to hypothermia. Chest pain secondary to anemia. 3. Normal left ventricular systolic function. Ejection fraction of 50%. Recommendations * Transfer to ICU. Transfuse blood. * Warming blankets. Interventional RX Recommendation: medical therapy and/or counseling Diagnostic RX Recommendation: medical therapy and/or counseling Anticoagulation: Heparin Ventriculography Ejection Fraction: 50.0 % Pressures Phase:Rest AO : / ( 0 ) @ 6:30:22 PM 131 / 70 ( 98 ) @ 6:30:22 PM 128 / 87 ( 102 ) @ 6:30:22 PM 113 / 71 ( 91 ) @ 6:30:22 PM 147 / 67 ( 103 ) @ 6:30:22 PM 151 / 62 ( 102 ) @ 6:30:22 PM LV : 142 / -3 / 16 @ 6:30:22 PM 146 / 0 / 20 @ 6:30:22 PM 147 / 0 / 19 @ 6:30:22 PM Valves Phase:DefaultPhase AV : 0.0 @ 12:30:22 AM AV Mean Gradient: 0.0 @ 12:30:22 AM Clinical Evaluation EBL: 5mL-10mL Procedural Details Current Diagnosis : STEMI. Pre-Procedure Time Out. Identified patient by full name and date of as verbalized by the patient/guarantor. Does the consent match the physician's order: N/A Emergent. Accurate & Complete Informed Consent: N/A Emergent. Inpatient/Outpatient History & Physical on Chart: N/A Emergent. If H&P is completed, is and addenduem needed: N/A Emergent; If yes, is the addendum complete: N/A Emergent. Visualize and Verify Site with Patient/Guarantor: N/A. Relevant Radiology Images available: N/A Emergent. Pre-op teaching completed and patient verbalized understanding. The risks, benefits, and alternatives of sedation and/or procedure were discussed by physician. The patient agrees to continue. Procedure started. Physician arrived. [facility] Clinical Fraility Score: 6: Moderately Frail. Ice House Supervisor Indications: ACS <= 24 hours. Chest Pain Symptom Assessment: Typical Angina Symptoms. Cardiovascular Instability: Yes, if yes, Persistant Ischemic Symptoms. Correct patient, site and procedure confirmed by cath team. Current diagnosis: STEMI. PERRLA. Strong, equal hand hand funnel coater bilaterally. Lungs clear x 5 lobes. IV Site on Arrival: 18 gauge in the right anticubital. IV Fluids: 0.9% NaCl at KVO. 0 mL infused prior to equipment operator/laborer/supervisor. Oxygen started at 2liters/min via nasal canula. bilateral groins was prepped with chloroprep then draped in the usual sterile fashion. Baseline sample Acquired. HR: 102 BPM. Physician scrubbed in. Immediate Pre-Procedure Time Out. Correct Patient: Yes; Correct Procedure: Yes; Correct Site: Yes; Correct Patient Position: Yes; Correct Supplies: Yes; Dried Flammable Prep: Yes; Blood Products Available: N/A;. Lidocaine 1% infiltrated to the right groin. Lab called to shrimp picker blood. Ultrasound being used to obtain arterial access. Arterial access obtained with micropuncture set. 6 [place] 0.75 guide catheter was inserted over the wire. Multiple views taken of right coronary artery. Catheter removed over the standard wire. A 5 citizen [place] JL4 catheter in over wire. Multiple views taken of left coronary artery. Catheter removed over the standard wire. A 5 [place] Angled Pig catheter in over wire. EDP Sample taken: LV 142/-4,16; HR: 91 BPM; SpO2: 99%. LV gram performed in WALTER @ 10 mL/second for a total of 30 mL. EDP Sample taken: LV 146/0,20; HR: 90 BPM; SpO2: 99%. Pullback taken: LV 147/-1,19; AO 147/67(103); Mean: 0mmHg, Peak to Peak: 0mmHg, SEP: 22sec/min; HR: 90 BPM; SpO2: 99%. Catheter removed over the standard wire. A Right femoral angiogram was performed to determine safe placement of closure device. A Suture was successful obtaining hemostatsis at the Right Femoral artery insertion site. Arterial sheath flushed and connected to tranducer and pressure bag with heparinized saline. Post Procedure: Pulses reassessed and unchanged. PERRLA. Strong, equal hand hand funnel coater bilaterally. No VTE prophylaxis required. Post-op diagnosis: Patent Coronary Arteries. Complications: None. Medication's Wasted: Other = Fentanyl 75mcg Versed 1 mg. Total IV fluids: 435 mL. Vital chart was stopped. Estimated blood loss: 5mL-10mL. Responsiveness - Normal response to verbal stimuli; alert and oriented, PERRLA. Airway - Unaffected, no intervention required; spontaneous ventilation. Circulation: W/N/L, pulses unchanged. Nausea/Vomiting: No. Procedure completed. Patient transferred by bed to ICU. Lab called a critical result. Troponin Baseline: 193. Access Site Site: Right Femoral artery Sheath Size: 6 Fr Hemostasis Method: Suture Hemostasis Success: Successful Procedure Medications Start: 11:58 PM Stop: 11:58 PM Medication: Versed Amount: 1 mg Route: I.V. Start: 11:59 PM Stop: 11:59 PM Medication: 0.9% Saline Amount: 500 ml Route: I.V. bolus Start: 12:00 AM Stop: 12:00 AM Medication: Fentanyl Amount: 25 mcg Route: I.V. Start: 11:58 PM Stop: 11:58 PM Medication: Levophed (norepinephrine) Amount: 8 mcg/min Route: I.VQuentin corral I, the attending physician, have reviewed and verified all procedure medications. Yes, all medications given per verbal order History/Risk Factors Hypertension: No Dyslipidemia: No Peripheral Arterial Disease (PAD): No Myocardial Infarction (LA): No Obesity: No Renal Disease: No Prior Interventions PCI: Yes CABG: No Valve Surgery: No Report Signatures Finalized by Rashaad Jensen MD on 08/25/2024 05:45 PM
--- NOTE | 2024-08-14 23:33 | XRR_ITS ---
PROCEDURE INFORMATION: Exam: XR Chest Exam date and time: 08/14/2024 11:33 PM Age: 79 years old Clinical indication: Pain; Chest pressure; Additional info: Chest pain TECHNIQUE: Imaging protocol: Radiologic exam of the chest. Views: 1 view. COMPARISON: CT chest abdpel w/*[id number] 07/12/2024 3:58 PM FINDINGS: Lungs: Unremarkable. No consolidation. Pleural spaces: Unremarkable. No pleural effusion. No pneumothorax. Heart/Mediastinum: Unremarkable. No cardiomegaly. 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 XR/XR chest 1V portable [id number] IMPRESSION: As above.
--- NOTE | 2024-08-14 23:34 | ED_ITS ---
HPI - Chest Pain General: Stated Complaint: stemi Time Seen by Provider: 08/14/24 23:29 History of Present Illness: Patient arrived via EMS for chest pain, EMS called STEMI, Panel Raiser Operator was in the ER upon arrival. Patient was bradycardic for EMS to the ED and given her 1 mg atropine, she refused 3 and 24 mg aspirin due to bleeding condition which may be ulcers, per EMS she was having chest pain and was getting ready to drive herself to the hospital when she walked down 3 stairs possibly fell down as she was found on the ground. Patient is cold to the touch, they think she may have been down for approximately 1 hour. Patient still having chest pain upon arrival to the ER. Dr. Barreto reviewed the rhythm strips from the EMS and plans on taking her to the Panel Raiser Operator. Related Data Home Medications Medication Instructions Recorded Confirmed allopurinol 100 mg tablet 100 mg PO BEDTIME 09/08/19 07/15/24 amitriptyline 25 mg tablet 25 mg PO BEDTIME 09/08/19 07/15/24 pantoprazole 40 mg tablet,delayed 40 mg PO QAM 09/08/19 07/15/24 release acetaminophen 650 mg 1,300 mg PO BID Pain 07/30/20 07/15/24 tablet,extended release (Tylenol Arthritis Pain) gabapentin 300 mg capsule 300 mg PO TID 05/23/21 07/15/24 empagliflozin 10 mg tablet 10 mg PO QAM 10/20/22 07/15/24 (Jardiance) insulin glargine 100 unit/mL (3 25 unit SUBCUT DAILY 07/12/24 07/15/24 mL) subcutaneous pen (Lantus Solostar U-100 Insulin) levothyroxine 75 mcg tablet 75 mcg PO DAILY 07/12/24 07/15/24 Previous Rx's Medication Instructions Recorded nitroglycerin 0.4 mg sublingual 0.4 mg sublingual Q5M PRN chest 04/28/21 tablet (Nitrostat) pain #25 tabs ticagrelor 90 mg tablet (Brilinta) 90 mg PO BID #180 tabs 08/27/21 metoprolol tartrate 25 mg tablet 25 mg PO BID@0900,2100 #120 tabs 11/27/22 atorvastatin 80 mg tablet 80 mg PO BEDTIME #90 tabs 11/10/23 albuterol sulfate 90 mcg/actuation 2 inh inhalation Q4H PRN shortness 05/21/24 aerosol inhaler of breath or wheezing #6.7 grams pybnwqdg-tcuqhchmi-cydcqivu 3.5 1 drp ophthalmic (eye) Q8H #5 mL 07/15/24 mg/mL-10,000 unit/mL-0.1% eye drops (Maxitrol) Allergies Allergy/AdvReac Type Severity Reaction Status Date / Time codeine Allergy Unknown Unknown Verified 07/15/24 13:25 tetanus and diphtheria Allergy Unknown Verified 07/15/24 13:25 toxoids Tetanus Vaccines and Toxoid Allergy Unknown Verified 07/15/24 13:25 Review of Systems General: Reports: 10 or more systems reviewed and unremarkable except in HPI and below PFSH ED PFSH: Medical History Chest pain Coronary stent thrombosis Had stent thrombosis x2 during hospitalization with likely mechanism of plavix resistance ST elevation myocardial infarction (STEMI) History of [place] (myocardial infarction) Coronary artery disease PAD (peripheral artery disease) HTN (hypertension) Surgical History H/O esophagogastroduodenoscopy (12/19/20) Gastric erosions Status post colonoscopy (12/19/20) Extensive diverticulosis H/O section S/P breast biopsy S/P PTCA (percutaneous transluminal coronary angioplasty) S/P appendectomy History of cholecystectomy S/P femoral-popliteal bypass surgery Family History Other CAD (coronary artery disease) Cancer Diabetes Hypertension Stroke Social History Smoking and tobacco/nicotine status: former use of tobacco/nicotine Quit status (tobacco/nicotine): has quit using Year quit tobacco: 2016 Alcohol intake: never Substance/Drug Use: never Physical Exam Const: COMMON NORMALS: no acute distress, average body habitus, patient oriented x3, no limitations, healthy appearing, alert and well nourished Neck/C-Spine: COMMON NORMALS: no JVD Chest: COMMONS NORMALS: normal inspection of the chest and normal palpation of entire chest wall Resp: COMMON NORMALS: normal respiratory effort, No retractions, No use of accessory muscles and clear to auscultation bilaterally AUSCULTATION: clear to auscultation bilaterally Cardio: COMMON NORMALS: no JVD, regular rhythm, S1 normal heart sound present and S2 normal heart sound present; negative for regular rate (Bradycardic) RATE: abnormal rate (Bradycardic) RHYTHM: regular rhythm HEART SOUNDS: S1 normal heart sound present and S2 normal heart sound present GI: COMMON NORMALS: Normal to inspection, nondistended, normoactive bowel sounds present, Soft to palpation, non-tender, No hepatosplenomegaly present and no masses PALPATION: Yes Soft to palpation and Yes No hepatosplenomegaly present Neuro: COMMON NORMALS: patient oriented x3 SENSORIUM/ORIENTATION: Yes alert MDM - Chest Pain Medical Decision Making Dr. Barreto was in the ER to evaluate patient upon arrival. He stated will take her to the Panel Raiser Operator. Medicine orders have been put in for Brilinta, heparin, and aspirin per Dr. Leung request. Medical Records I reviewed the patient's medical records. Lab Data I reviewed the patient's lab results. All radiology interpretation(s) finalized by discharge Discharge Plan Discharge Clinical Impression: ST elevation (STEMI) myocardial infarction Prescriptions: No Action acetaminophen [Tylenol Arthritis Pain] 650 mg tablet extended release 1,300 mg PO BID pantoprazole 40 mg tablet,delayed release (DR/EC) 40 mg PO QAM allopurinol 100 mg tablet 100 mg PO BEDTIME amitriptyline 25 mg tablet 25 mg PO BEDTIME Brilinta 90 mg tablet 90 mg PO BID Qty: 180 3RF neomycin-polymyxin B-dexameth [Maxitrol] 3.5mg/mL-10,000 unit/mL-0.1 % drops,suspension 1 drp ophthalmic (eye) Q8H Qty: 5 0RF nitroglycerin [Nitrostat] 0.4 mg tablet, sublingual 0.4 mg sublingual Q5M PRN (Reason: chest pain) Qty: 25 4RF Rx Instructions: DO NOT EXCEED 3 DOSES PER EPISODE metoprolol tartrate 25 mg tablet 25 mg PO BID@0900,2100 Qty: 120 3RF atorvastatin 80 mg tablet 80 mg PO BEDTIME Qty: 90 3RF gabapentin 300 mg capsule 300 mg PO TID Jardiance 10 mg tablet 10 mg PO QAM albuterol sulfate 90 mcg/actuation HFA aerosol inhaler 2 inh INHALATION Q4H PRN (Reason: shortness of breath or wheezing) Qty: 6.7 1RF levothyroxine 75 mcg tablet 75 mcg PO DAILY insulin glargine [Lantus Solostar U-100 Insulin] 100 unit/mL (3 mL) insulin pen 25 unit SUBCUT DAILY Referrals: Jenniffer Jenkins MD [Primary Care Provider] - Coding Level of Care Code ED Knowledge Analyst for [facility]
[2024-08-14 23:41] LABS: Basophils # 0.1 10^3/uL (0.0-0.1); Basophils % 0.4 %; Eosinophils % 0.3 %; Hematocrit 23.8 % (36-47); Lymphocytes # 1.9 10^3/uL (0.8-4.8); Lymphocytes % 14.1 %; Mean Corpuscular HGB Conc 26.5 g/dL (30-55); Mean Corpuscular Hemoglobin 21.1 pg (27-33); Mean Corpuscular Volume 79.9 fl (85-98); Mean Platelet Volume 9.6 fL (7.4-10.4); Monocytes # 0.9 10^3/uL (0.2-0.9); Monocytes % 6.7 %; Neutrophils # 10.37 10^3/uL (1.8-7.7); Neutrophils % 77.8 %; Nucleated Red Blood Cells # 0.3 /100WBC; Nucleated Red Blood Cells % 1.9 %; Platelet Count 427 10^3/cmm (157-399); Red Blood Count 2.98 10^6/uL (3.85-5.65); Red Cell Distribution Width 20.8 % (12.1-15.1); White Blood Count 13.32 10^3/uL (3.29-11.43)
--- NOTE | 2024-08-14 23:48 | P.HP_ITS ---
Providers/Chief Complaint 2 Admitting Physician: Rashaad Jensen MD/ Cardiology Primary Care Provider: Jenniffer Jenkins MD Chief Complaint: stemi History of Present Illness Capri Tobar is a 79 year old female with past medical history of coronary artery disease, COPD who started having chest pain today. She was planning to drive down to hospital herself. Was found to be down outside. Time not known. On arrival to ER she has cold extremities. However has good mentation. Having chest pain. Says she stopped taking Brilinta secondary to dark stools. Initially was bradycardic and after receiving atropine her bradycardia resolved. EKG showed acute inferior wall ST elevation [place] Review of Systems 2 General: Reports: 10 or more systems reviewed and unremarkable except in HPI and below Card: Reports: chest pain Medications/Allergies Home Medications Medication Instructions Recorded Confirmed Last Taken Type allopurinol 100 mg tablet 100 mg PO BEDTIME 09/08/19 07/15/24 07/10/24 History amitriptyline 25 mg tablet 25 mg PO BEDTIME 09/08/19 07/15/24 07/10/24 History pantoprazole 40 mg tablet,delayed 40 mg PO QAM 09/08/19 07/15/24 07/12/24 History release acetaminophen 650 mg 1,300 mg PO BID Pain 07/30/20 07/15/24 07/12/24 History tablet,extended release (Tylenol Arthritis Pain) nitroglycerin 0.4 mg sublingual 0.4 mg sublingual Q5M PRN chest 04/28/21 07/15/24 Unknown Rx tablet (Nitrostat) pain #25 tabs gabapentin 300 mg capsule 300 mg PO TID 05/23/21 07/15/24 07/10/24 History ticagrelor 90 mg tablet (Brilinta) 90 mg PO BID #180 tabs 08/27/21 07/15/24 07/10/24 Rx empagliflozin 10 mg tablet 10 mg PO QAM 10/20/22 07/15/24 07/10/24 History (Jardiance) metoprolol tartrate 25 mg tablet 25 mg PO BID@0900,2100 #120 tabs 11/27/22 07/15/24 07/10/24 Rx atorvastatin 80 mg tablet 80 mg PO BEDTIME #90 tabs 11/10/23 07/15/24 07/10/24 Rx albuterol sulfate 90 mcg/actuation 2 inh inhalation Q4H PRN shortness 05/21/24 07/15/24 Unknown Rx aerosol inhaler of breath or wheezing #6.7 grams insulin glargine 100 unit/mL (3 25 unit SUBCUT DAILY 07/12/24 07/15/24 07/10/24 History mL) subcutaneous pen (Lantus Solostar U-100 Insulin) levothyroxine 75 mcg tablet 75 mcg PO DAILY 07/12/24 07/15/24 07/10/24 History oydfkvrb-wfvimdngm-jfxhbjwt 3.5 1 drp ophthalmic (eye) Q8H #5 mL 07/15/24 07/15/24 Unknown Rx mg/mL-10,000 unit/mL-0.1% eye drops (Maxitrol) Allergies Allergy/AdvReac Type Severity Reaction Status Date / Time codeine Allergy Unknown Unknown Verified 07/15/24 13:25 tetanus and diphtheria Allergy Unknown Verified 07/15/24 13:25 toxoids Tetanus Vaccines and Toxoid Allergy Unknown Verified 07/15/24 13:25 PFSH Acute 2 PFSH: Medical History Chest pain Coronary stent thrombosis Had stent thrombosis x2 during hospitalization with likely mechanism of plavix resistance ST elevation myocardial infarction (STEMI) History of [place] (myocardial infarction) Coronary artery disease PAD (peripheral artery disease) HTN (hypertension) Surgical History H/O esophagogastroduodenoscopy (12/19/20) Gastric erosions Status post colonoscopy (12/19/20) Extensive diverticulosis H/O section S/P breast biopsy S/P PTCA (percutaneous transluminal coronary angioplasty) S/P appendectomy History of cholecystectomy S/P femoral-popliteal bypass surgery Family History Other CAD (coronary artery disease) Cancer Diabetes Hypertension Stroke Social History Smoking and tobacco/nicotine status: former use of tobacco/nicotine Quit status (tobacco/nicotine): has quit using Year quit tobacco: 2016 Alcohol intake: never Substance/Drug Use: never Vitals/I&O/Wt Last Vital Signs Pulse 44 L 08/14/24 23:28 Resp 16 08/14/24 23:28 BP 93/55 08/14/24 23:28 Pulse Ox 100 08/14/24 23:28 O2 Del Method Nasal Cannula 08/14/24 23:28 O2 Flow Rate 2 08/14/24 23:28 08/14/24 08/14/24 08/15/24 14:59 22:59 06:59 Intake Total 200 / 200 Balance 200 / 200 Weight last 48 hrs Weight 150 lb Physical Exam 2 Narrative: GENERAL: Patient is alert, awake and oriented x3. HEART: Regular S1 and S2. No murmur, rub or gallop. LUNGS: Clear to auscultate bilaterally. CENTRAL NERVOUS SYSTEM: Grossly nonfocal. EXTREMITIES: Lower extremities with out edema bilaterally. Data 08/14/24 23:30 08/14/24 23:30 A&P Assessment and plan (1) ST elevation (STEMI) myocardial infarction: (2) PAD (peripheral artery disease): (3) Melena: (4) Hypothermia: Plan Patient has presented with acute ST elevation [place] also was hypothermic. Will emergently take her to cardiac Anchorman. Patient is answering appropriately. Aspirin, Brilinta loaded Heparin bolus given Monitor CBC. The patient had melena. As it is an emergency proceed with possible PCI. Will obtain echocardiogram. We will consult of medicine team for help with medical management Attestations 2 Medical Necessity Statement*: Care expected to cross 2 midnights. Patient presented with STEMI and hypothermia. 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 Coding Level of Care Code Acute Code for [facility] Diagnoses ST elevation (STEMI) myocardial infarction I21.3 PAD (peripheral artery disease) I73.9 Melena K92.1 Hypothermia T68.XXXA
[2024-08-14] MEDS: clopidogrel 300 mg Tablet 600 MG PO (23:50)
[2024-08-14] MEDS: aspirin 81 mg Chew Tablet 324 MG PO (23:50)
[2024-08-14] MEDS: heparin 5,000 unit/mL INJ 1 mL 4000 UNIT IVP (23:51)
[2024-08-14] MEDS: ticagrelor 90 mg Tablet 180 MG PO (23:51)
--- NOTE | 2024-08-14 23:51 | PC.NURSE ---
pt had dark tarry stools when rectal temp was taken
[2024-08-14 23:53] VITALS: TEMP 34.3
[2024-08-15] VITALS (66 sets, daily range): BP systolic 81–131; BP diastolic 40–69; PULSE 71–94; RESP 11–29; TEMP 33.8–36.7; O2SAT 80–100
[2024-08-15 00:12] LABS: Alanine Aminotransferase 11 U/L (0-33); Albumin Level 3.6 g/dL (3.5-5.2); Alkaline Phosphatase 115 U/L (35-105); Anion Gap 34.5 (5-19); Aspartate Amino Transferase 47 U/L (0-32); Blood Urea Nitrogen 44 mg/dL (8-23); Calcium 8.8 mg/dL (8.5-10.5); Carbon Dioxide 11 mmol/L (22-29); Chloride 96 mmol/L (98-107); Creatinine Clr Calc Pharmacy 27.6985; Globulin 2.9 g/dL (1.3-4.6); Glucose 244 mg/dL (65-115); Osmolality Calculated 305 mOsm/kg (285-295); Potassium 3.5 mmol/L (3.5-5.1); Sodium 138 mmol/L (136-145); Total Bilirubin 1.1 mg/dL (0.15-1.2); Total Protein 6.5 g/dL (6.6-8.7)
--- NOTE | 2024-08-15 00:26 | PM.PROC ---
Procedure Note: Date of procedure: 08/15/24 Pre-procedure diagnosis: STEMI Post-procedure diagnosis: other (Patent coronary arteries) Procedure: Left heart cath: Left main artery is patent. LAD is patent. Left circumflex artery is patent. RCA has patent prior stents. LV EF is normal on LV gram Transfer to ICU. Consult medicine team Patient's hemoglobin came back during procedure at 6.3. Blood sent for type and cross. Transfuse [address] changes likely secondary to hypothermia. Warming blankets. Monitor temperature Performing Provider: Rashaad Jensen Complications: None Condition: critical Disposition: ICU Coding Level of Care Code Acute Code for [facility]
--- NOTE | 2024-08-15 00:30 | CTR_ITS ---
PROCEDURE INFORMATION: Exam: CT Head Without Contrast Exam date and time: 08/15/2024 1:47 AM Age: 79 years old Clinical indication: Injury or trauma; Fall; Blunt trauma (contusions or hematomas); Additional info: Hypothermia, fall TECHNIQUE: Imaging protocol: Computed tomography of the head without contrast. Radiation optimization: All CT scans at this facility use at least one of these dose optimization techniques: automated exposure control; mA and/or kV adjustment per patient size (includes targeted exams where dose is matched to clinical indication); or iterative reconstruction. COMPARISON: CT angio headneck* [id number] 10/21/2022 8:47 AM RADIATION DOSE METRICS: Total DLP (mGy-cm): 983.98 FINDINGS: Brain: There is generalized atrophy. mild periventricular white matter low densities without mass effect compatible with chronic small vessel ischemic changes. No mass effect or midline shift. No hemorrhage. Cerebral ventricles: Prominence of the ventricles and cortical sulci. Paranasal sinuses: Visualized sinuses are unremarkable. No fluid levels. Mastoid air cells: Visualized mastoid air cells are well aerated. Bones: Unremarkable. No acute fracture. Soft tissues: Unremarkable. Vasculature: There are vascular atherosclerotic calcifications carotid siphons. Notes: If there is further clinical concern for intracranial pathology, MRI of the brain may be performed for further assessment. CT/CT head wo con* [id number] IMPRESSION: Genralized atrophy, No acute intracranial abnormality.
[2024-08-15 00:31] LABS: Troponin(5th) Baseline 193 ng/L (0-10)
--- NOTE | 2024-08-15 00:31 | P.CONIM_ITS ---
Providers/Reason For Consult 2 Consulting Physician/Specialty*: Post cath Reason for Consult*: Hospitalist Attending Physician: Rashaad Jensen M.D Primary Care Provider: Jenniffer Jenkins MD History of Present Illness History of Present Illness Capri Tobar is a 79 year old female history of chronic kidney disease, hypertension, diabetes, multiple coronary artery stents resistance to Plavix hence switched to Brilinta, lives alone, was found by her neighbor outside the house, 911 called as per the EMS report patient remained on the ground outside her house for at least an hour, when EMS found her STEMI was called, for inferior wall ST elevation, she was given 1 mg atropine, patient refused therapeutic aspirin secondary to bleeding history, STEMI alert was called. Patient went to the [facility] straight[facility], patient was hypothermic however able to provide HPI, she was not confused. Able to tell us that she was in active pain. Cardiac cath was done by Dr. Jensen, patient has patent coronary stents, ejection fraction has not changed since previous, after her [facility] CBC came back with hemoglobin 6.3. Patient endorsing melanotic stools. We have requested 2 unit PRBC. We have weaned her off Levophed. Patient has been started on Protonix,, hemodynamically stable off Levophed. Hospitalist consulted for hypothermia, post-cath management and management of anemia. Patient is stating that she was experiencing chest pain in the morning, she waited quite a bit to see if her chest pain would ease down, however in the evening it started getting worse, she was trying to call the ambulance and wait on her porch and her foot got stuck behind the door so she sat down and waited for the ambulance, she is also stating that for last 3 to 4 days, her stools have been darker, she stopped taking her Brilinta. She does not use oxygen at home. She is otherwise compliant with her medications. I have seen her after cath: Complaining of left hip pain, I have requested CT head, CT hip she is currently on Levophed 8 mics, she is getting 2 units PRBC She is awake and alert AO x 4 Review of Systems 2 Const: Denies: fever(s) Eyes: Denies: change in vision ENMT: Denies: throat pain Card: Reports: chest pain Resp: Reports: dyspnea GI: Reports: bloating and melena Medications/Allergies Home Medications Medication Instructions Recorded Confirmed Last Taken Type allopurinol 100 mg tablet 100 mg PO BEDTIME 09/08/19 07/15/24 07/10/24 History amitriptyline 25 mg tablet 25 mg PO BEDTIME 09/08/19 07/15/24 07/10/24 History pantoprazole 40 mg tablet,delayed 40 mg PO QAM 09/08/19 07/15/24 07/12/24 History release acetaminophen 650 mg 1,300 mg PO BID Pain 07/30/20 07/15/24 07/12/24 History tablet,extended release (Tylenol Arthritis Pain) nitroglycerin 0.4 mg sublingual 0.4 mg sublingual Q5M PRN chest 04/28/21 07/15/24 Unknown Rx tablet (Nitrostat) pain #25 tabs gabapentin 300 mg capsule 300 mg PO TID 05/23/21 07/15/24 07/10/24 History ticagrelor 90 mg tablet (Brilinta) 90 mg PO BID #180 tabs 08/27/21 07/15/24 07/10/24 Rx empagliflozin 10 mg tablet 10 mg PO QAM 10/20/22 07/15/24 07/10/24 History (Jardiance) metoprolol tartrate 25 mg tablet 25 mg PO BID@0900,2100 #120 tabs 11/27/22 07/15/24 07/10/24 Rx atorvastatin 80 mg tablet 80 mg PO BEDTIME #90 tabs 11/10/23 07/15/24 07/10/24 Rx albuterol sulfate 90 mcg/actuation 2 inh inhalation Q4H PRN shortness 05/21/24 07/15/24 Unknown Rx aerosol inhaler of breath or wheezing #6.7 grams insulin glargine 100 unit/mL (3 25 unit SUBCUT DAILY 07/12/24 07/15/24 07/10/24 History mL) subcutaneous pen (Lantus Solostar U-100 Insulin) levothyroxine 75 mcg tablet 75 mcg PO DAILY 07/12/24 07/15/24 07/10/24 History yoursbcl-cqgqawaaq-pampmldc 3.5 1 drp ophthalmic (eye) Q8H #5 mL 07/15/24 07/15/24 Unknown Rx mg/mL-10,000 unit/mL-0.1% eye drops (Maxitrol) Allergies Allergy/AdvReac Type Severity Reaction Status Date / Time codeine Allergy Unknown Unknown Verified 07/15/24 13:25 tetanus and diphtheria Allergy Unknown Verified 07/15/24 13:25 toxoids Tetanus Vaccines and Toxoid Allergy Unknown Verified 07/15/24 13:25 PFSH Acute 2 PFSH: Medical History Chest pain Coronary stent thrombosis Had stent thrombosis x2 during hospitalization with likely mechanism of plavix resistance ST elevation myocardial infarction (STEMI) History of [place] (myocardial infarction) Coronary artery disease PAD (peripheral artery disease) HTN (hypertension) Surgical History H/O esophagogastroduodenoscopy (12/19/20) Gastric erosions Status post colonoscopy (12/19/20) Extensive diverticulosis H/O section S/P breast biopsy S/P PTCA (percutaneous transluminal coronary angioplasty) S/P appendectomy History of cholecystectomy S/P femoral-popliteal bypass surgery Family History Other CAD (coronary artery disease) Cancer Diabetes Hypertension Stroke Social History Smoking and tobacco/nicotine status: former use of tobacco/nicotine Quit status (tobacco/nicotine): has quit using Year quit tobacco: 2015 Alcohol intake: never Substance/Drug Use: never Vitals/I&O/Wt Last Vital Signs Temp 93.8 F L 08/14/24 23:53 Pulse 44 L 08/14/24 23:28 Resp 16 08/14/24 23:28 BP 93/55 08/14/24 23:28 Pulse Ox 100 08/14/24 23:28 O2 Del Method Nasal Cannula 08/14/24 23:28 O2 Flow Rate 2 08/14/24 23:28 08/14/24 08/14/24 08/15/24 14:59 22:59 06:59 Intake Total 200 / 200 Balance 200 / 200 Weight last 48 hrs Weight 68.039 kg Physical Exam 2 Narrative: Patient is chest pain-free at the time of evaluation complaining of left hip pain Hemodynamically stable on Levophed 8 mics GCS 15 Pale complexion Abdomen soft S1, S2 sinus rhythm Nonfocal neuroexam Lower extremity no signs of neurovascular compromise Dehydrated Hypothermia improved AOx4 Nonfocal neuroexam No sign of meningitis On 2 L nasal cannula Data 08/14/24 23:30 08/14/24 23:30 A&P Assessment and plan (1) ST elevation (STEMI) myocardial infarction: (2) PAD (peripheral artery disease): (3) Diabetes: (4) Melena: (5) Hypothermia: Plan STEMI alert was called She had T wave elevation inferior wall leads Went to [facility] Hemoglobin 6.3 not a candidate to be on Brilinta at this point History of established coronary disease with Plavix assistance in-stent stenosis, she was transition to Brilinta which she has stopped taking secondary to GI bleed Acute GI blood loss anemia Patient noting melanotic stool Check stool guaiac test Requested 2 unit PRBC Hold anticoagulating agent and antiplatelets Patient is endorsing previous history of GI bleed Will request general surgery consult in the morning Patient currently requiring Levophed at 8 mics Hypothermia: Improved with Tasneem hugger Hemorrhagic shock: Currently on Levophed at 8 mics: Anticipate improvement with PRBC Currently blood pressure stable Left hip pain: Requested CT hip along CT head without contrast on stat basis Will keep patient n.p.o. DVT prophylaxis: SCDs Start Protonix 40 mg IV twice daily Full code Consult Attestations 2 Medical Necessity Statement: More than [address] elevation (STEMI) myocardial infarction I21.3 PAD (peripheral artery disease) I73.9 Diabetes E11.9 Melena K92.1 Hypothermia T68.XXXA
--- NOTE | 2024-08-15 00:44 | CTR_ITS ---
PROCEDURE INFORMATION: Exam: CT Left Lower Extremity, Hip Exam date and time: 08/15/2024 1:50 AM Age: 79 years old Clinical indication: Injury or trauma; Fall; Blunt trauma; Hip; Left; Additional info: Fall, hip pain TECHNIQUE: Imaging protocol: CT of the left lower extremity without contrast was performed. Exam focused on the hip. Radiation optimization: All CT scans at this facility use at least one of these dose optimization techniques: automated exposure control; mA and/or kV adjustment per patient size (includes targeted exams where dose is matched to clinical indication); or iterative reconstruction. COMPARISON: CT chest abdpel w/*[id number] 07/12/2024 3:58 PM RADIATION DOSE METRICS: Total DLP (mGy-cm): 472.85 FINDINGS: Tubes, catheters and devices: There is a rectal tube in position with moderate fecal impaction in the rectosigmoid. Again noted is left-sided diverticulosis. Bones/joints: There is diffuse osteopenia which somewhat limits bony assessment. There is normal bony alignment with no acute fracture or dislocation identified. There is moderate arthropathy. Soft tissues: Normal. Vasculature: Again noted is diffuse atherosclerosis with a femoral-femoral artery bypass graft. Urinary bladder: There is incomplete opacification of the bladder with iodinated contrast. Reproductive: Again noted is an incompletely visualized right adnexal cyst possibly ovarian. CT/CT hip LT wo con* [id number] IMPRESSION: No acute fracture identified.
[2024-08-15] MEDS: morphine 4 mg/mL SDV 1 mL 2 MG IVP ×2 (01:00→05:41)
--- NOTE | 2024-08-15 01:33 | ECG_ITS ---
[employer] Test Date: 2024-08-14 Pat Name: Capri Tobar Department: Room: [facility]09 Gender: Female Rehab Nurse: : 1945 Requested By: Jaron Yeboah Order Number: [id number] Kimmy MD: Rashaad Jensen M.D. Measurements Intervals [place] Rate: 103 P: 0 [place]: 0 QRS: 40 QRSD: 114 T: 91 QT: 333 QTc: 436 Interpretive Statements SUPRAVENTRICULAR TACHYCARDIA LOW QRS VOLTAGE IN PRECORDIAL LEADS [QRS DEFLECTION < 1.0 mV IN CHEST LEADS] INFERIOR MYOCARDIAL INFARCTION , POSSIBLY ACUTE [40+ ms Q WAVE AND/OR ST/T ABNORMALITY IN II/aVF] ACUTE [place] INTERPRETATION BASED ON A DEFAULT AGE OF 40 YEARS Compared to ECG 07/12/2024 16:18:49 Myocardial infarct finding now present Sinus rhythm no longer present T-wave abnormality no longer present Electronically Signed On 08-19-2024 13:53:06 CHANNEL LIP WETTER by Rashaad Jensen M.D. [email or web address]
[2024-08-15] MEDS: sodium chloride 0.9% 1,000 ML 100 ML IV ×3 (01:36→22:07)
[2024-08-15 02:14] LABS: Troponin 5 2HR 268.9 ng/L (0-10); Troponin 5 2HR Delta 75.9 ABS# (0-10)
[2024-08-15 03:20] LABS: Partial Thromboplastin Time 146.6 SECONDS (23.9-36.7)
[2024-08-15 04:19] LABS: Bilirubin Urine Negative (Negative); Blood Urine 1+ (Negative); Glucose Urine UA 3+ (Normal); Ketones Urine 1+ (Negative); Leukocyte Esterase Urine 2+ (Negative); Nitrate Urine Negative (Negative); Protein Urine 1+ (Negative); Urine Appearance Turbid (CLEAR); Urine Color Yellow (Yellow)
[2024-08-15 04:24] LABS: Bacteria Urine EXCEEDS /hpf; Hyaline Casts Urine 36.94 /lpf; RBC Urine >100 /hpf (0-2); Squamous Epithelial Cell Urine 0-5 /hpf (0-5); WBC Urine >100 /hpf (0-5)
[2024-08-15] MEDS: sodium chloride 0.9% 100 mL Bag 50 ML IV ×2 (04:34→06:24)
[2024-08-15 04:42] LABS: Specific Gravity, Urine 1.053 (1.005-1.030); UA Slide Review UA Slide Review Perf
[2024-08-15 04:43] LABS: Add Urine Culture? Yes; Mucus Urine 2+ /hpf
[2024-08-15 05:46] LABS: Basophils % 0.1 %; Hematocrit 23.7 % (36-47); Lymphocytes # 1.1 10^3/uL (0.8-4.8); Mean Corpuscular HGB Conc 29.5 g/dL (30-55); Mean Corpuscular Hemoglobin 23.3 pg (27-33); Mean Corpuscular Volume 78.7 fl (85-98); Mean Platelet Volume 9.1 fL (7.4-10.4); Monocytes # 0.7 10^3/uL (0.2-0.9); Neutrophils % 81.9 %; Nucleated Red Blood Cells # 0.1 /100WBC; Nucleated Red Blood Cells % 1.2 %; Platelet Count 272 10^3/cmm (157-399); Red Blood Count 3.01 10^6/uL (3.85-5.65); Red Cell Distribution Width 20.7 % (12.1-15.1); White Blood Count 10.49 10^3/uL (3.29-11.43)
--- NOTE | 2024-08-15 05:49 | ECG_ITS ---
[facility] Date: 2024-08-15 Pat Name: Capri Tobar Department: Room: [facility]09 Gender: Female [employer]: : 1945 Requested By: Jaron Yeboah Order Number: [id number] Kimmy MD: Rashaad Jensen M.D. Measurements Intervals [place] Rate: 84 P: 67 IA: 177 QRS: -6 QRSD: 97 T: -40 QT: 403 QTc: 479 Interpretive Statements SINUS RHYTHM LOW QRS VOLTAGE IN PRECORDIAL LEADS [QRS DEFLECTION < 1.0 mV IN CHEST LEADS] Compared to ECG 08/14/2024 23:43:13 Supraventricular tachycardia no longer present Myocardial infarct finding no longer present Electronically Signed On 08-19-2024 13:51:30 TAKE OUT WAITRESS by Rashaad Jensen M.D. [email or web address]
[2024-08-15 05:56] LABS: Partial Thromboplastin Time 45.6 SECONDS (23.9-36.7)
[2024-08-15 06:04] LABS: Anion Gap 24.7 (5-19); Blood Urea Nitrogen 41 mg/dL (8-23); Calcium 8.1 mg/dL (8.5-10.5); Carbon Dioxide 16 mmol/L (22-29); Chloride 102 mmol/L (98-107); Creatinine Clr Calc Pharmacy 38.9156; Glucose 83 mg/dL (65-115); Osmolality Calculated 297 mOsm/kg (285-295); Potassium 3.7 mmol/L (3.5-5.1); Sodium 139 mmol/L (136-145)
[2024-08-15 06:14] LABS: Magnesium 2.1 mg/dL (1.7-2.3); Phosphorus 3.7 mg/dL (2.5-4.5)
[2024-08-15 06:23] LABS: Estmated Average Glucose 120; Hemoglobin A1C 5.8 % (4.0-6.0)
--- NOTE | 2024-08-15 06:25 | PC.NURSE ---
Order to Remove Sheath: Spoke w/ Dr. Jensen on phone @[phone]. New order to remove sheath in R. groin.
[2024-08-15] MEDS: pantoprazole 40 mg SDV IVP ×2 (07:27→17:13)
--- NOTE | 2024-08-15 07:30 | P.CONIM_ITS ---
Providers/Reason For Consult 2 Consulting Physician/Specialty*: General Surgery Reason for Consult*: GI bleeding Attending Physician: Rashaad Jensen M.D Primary Care Provider: Jenniffer Jenkins MD History of Present Illness History of Present Illness Capri Tobar is a 79 year old female with history of coronary stents who was take anticoagulation. Patient has been noticed for about a week dark tarry stools and therefore discontinued anticoagulation. She presented yesterday with elevation troponins and chest pain. She was taken for cardiac catheter shows patent stents. I was consulted for evaluation of GI bleeding. Currently stable Review of Systems 2 General: Reports: 10 or more systems reviewed and unremarkable except in HPI and below Medications/Allergies Home Medications Medication Instructions Recorded Confirmed Last Taken Type allopurinol 100 mg tablet 100 mg PO BEDTIME 09/08/19 07/15/24 07/10/24 History amitriptyline 25 mg tablet 25 mg PO BEDTIME 09/08/19 07/15/24 07/10/24 History pantoprazole 40 mg tablet,delayed 40 mg PO QAM 09/08/19 07/15/24 07/12/24 History release acetaminophen 650 mg 1,300 mg PO BID Pain 07/30/20 07/15/24 07/12/24 History tablet,extended release (Tylenol Arthritis Pain) nitroglycerin 0.4 mg sublingual 0.4 mg sublingual Q5M PRN chest 04/28/21 07/15/24 Unknown Rx tablet (Nitrostat) pain #25 tabs gabapentin 300 mg capsule 300 mg PO TID 05/23/21 07/15/24 07/10/24 History ticagrelor 90 mg tablet (Brilinta) 90 mg PO BID #180 tabs 08/27/21 07/15/24 07/10/24 Rx empagliflozin 10 mg tablet 10 mg PO QAM 10/20/22 07/15/24 07/10/24 History (Jardiance) metoprolol tartrate 25 mg tablet 25 mg PO BID@0900,2100 #120 tabs 11/27/22 07/15/24 07/10/24 Rx atorvastatin 80 mg tablet 80 mg PO BEDTIME #90 tabs 11/10/23 07/15/24 07/10/24 Rx albuterol sulfate 90 mcg/actuation 2 inh inhalation Q4H PRN shortness 05/21/24 07/15/24 Unknown Rx aerosol inhaler of breath or wheezing #6.7 grams insulin glargine 100 unit/mL (3 25 unit SUBCUT DAILY 07/12/24 07/15/24 07/10/24 History mL) subcutaneous pen (Lantus Solostar U-100 Insulin) levothyroxine 75 mcg tablet 75 mcg PO DAILY 07/12/24 07/15/24 07/10/24 History phnhchdr-fdfupzwvc-pgxhqacl 3.5 1 drp ophthalmic (eye) Q8H #5 mL 07/15/24 07/15/24 Unknown Rx mg/mL-10,000 unit/mL-0.1% eye drops (Maxitrol) Allergies Allergy/AdvReac Type Severity Reaction Status Date / Time codeine Allergy Unknown Unknown Verified 07/15/24 13:25 tetanus and diphtheria Allergy Unknown Verified 07/15/24 13:25 toxoids Tetanus Vaccines and Toxoid Allergy Unknown Verified 07/15/24 13:25 Current Medications Generic Name Dose Route Start Last Admin Trade Name Freq PRN Reason Stop Dose Admin Sodium Chloride 1,000 mls @ 100 mls/hr 08/15/24 00:30 08/15/24 06:24 Sodium Chloride 0.9% IV 100 mls/hr .Q10H CHARLI Infusion Morphine Sulfate 2 mg 08/15/24 00:44 08/15/24 05:41 Morphine 4 Mg/Ml Sdv 1 Ml IVP 2 mg Q4H PRN Administration SEVERE PAIN Pantoprazole Sodium 40 mg 08/15/24 07:30 08/15/24 07:27 Pantoprazole 40 Mg Sdv IVP 40 mg BID CHARLI Administration PFSH Acute 2 PFSH: Medical History Chest pain Coronary stent thrombosis Had stent thrombosis x2 during hospitalization with likely mechanism of plavix resistance ST elevation myocardial infarction (STEMI) History of [place] (myocardial infarction) Coronary artery disease PAD (peripheral artery disease) HTN (hypertension) Surgical History H/O esophagogastroduodenoscopy (12/19/20) Gastric erosions Status post colonoscopy (12/19/20) Extensive diverticulosis H/O section S/P breast biopsy S/P PTCA (percutaneous transluminal coronary angioplasty) S/P appendectomy History of cholecystectomy S/P femoral-popliteal bypass surgery Family History Other CAD (coronary artery disease) Cancer Diabetes Hypertension Stroke Social History Smoking and tobacco/nicotine status: former use of tobacco/nicotine Quit status (tobacco/nicotine): has quit using Year quit tobacco: 2016 Alcohol intake: never Substance/Drug Use: never Vitals/I&O/Wt Last Vital Signs Temp 97.2 F L 08/15/24 06:21 Pulse 87 08/15/24 06:21 Resp 20 H 08/15/24 06:21 BP 109/51 08/15/24 06:21 Pulse Ox 98 08/15/24 06:21 O2 Del Method Room Air 08/15/24 06:15 O2 Flow Rate 2 08/14/24 23:28 08/14/24 08/15/24 08/15/24 22:59 06:59 14:59 Intake Total 1030 / 1030 Output Total 400 / 400 Balance 630 / 630 Weight last 48 hrs Weight 156 lb 3.2 oz Weight 159 lb 12.8 oz Weight 159 lb 8 oz Weight 150 lb Physical Exam 2 GI: OTHER: Abdomen is soft, there is some epigastric tenderness, nondistended. Urinary Catheter Management: [place]: Cath Placed During This Visit: yes Reason for Continuing Indwelling Catheter: Accurate Measurement of Urinary Output in Critically Ill Patients Urinary Catheter Date of Insertion: 08/15/24 Urinary Catheter Time of Insertion: 04:00 Data 08/15/24 05:30 08/15/24 05:30 A&P Assessment and plan (1) Melena: (2) Anticoagulated: Plan This is a 79-year-old female who presented for suspected acute coronary syndrome, was found to have a normal angiogram and has been noted to have melena for several days. She does have some epigastric abdominal pain, this is consistent with the possibility of peptic ulcer disease and GI bleeding in the setting of chronic anticoagulation. I have offered the patient upper endoscopy with possible biopsy and bleeding control. I have discussed all recent benefits of the procedure including the risk of perforation requiring surgical intervention transfer to higher level of care, lack of bleeding control, rebleeding requiring transferred for GI evaluation. Need for additional interventions, need for interventional radiology follow-up. Patient shows understanding she is agreeable to proceed. Her hemoglobin is 7 this morning. She has not received pantoprazole yet we will start first dose now. Coding Level of Care Code 98518 Diagnoses Melena K92.1 Anticoagulated Z79.01
[2024-08-15] MEDS: cefTRIAXone 1,000 mg SDV 1000 MG IVP (07:43)
[2024-08-15] MEDS: fentaNYL 50 mcg/mL INJ 2mL IVP (07:43)
--- NOTE | 2024-08-15 08:09 | USCV_ITS ---
Capri Tobar Age: 79 Gender: F : 1945 Exam Date: 08/15/2024 14:19 Ordering Phys: Patty You Technologist: Exam Location: [facility] [place] Indication: cp BP: 103 / 57 HR: 84 Rhythm: Sinus Technical Quality: Adequate MEASUREMENTS (Male / Female) Normal Values 2D ECHO LV Diastolic Diameter PLAX 3.9 cm 4.2 - 5.9 / 3.9 - 5.3 cm IVS Diastolic Thickness 0.9 cm 0.6 - 1.0 / 0.6 - 0.9 cm IVS Systolic Thickness 1.1 cm LVPW Diastolic Thickness 1.0 cm 0.6 - 1.0 / 0.6 - 0.9 cm LVPW Systolic Thickness 1.0 cm LVOT Diameter 2.0 cm LV Ejection Fraction 2D Teich 39.7 % LV Ejection Fraction MOD 4C 57.2 % LV Ejection Fraction MOD 2C 70.8 % LV Ejection Fraction 2C AL 71.9 % LA Diameter 2.8 cm RA Systolic Volume 4C AL 38.8 ml RA Systolic Volume 4C MOD 36.3 ml Aorta at Sinotubular Diameter 2.8 cm IVC Diameter 1.3 cm M-MODE LA Ao Ratio MM 0.9 AV Cusp Separation MM 2.1 cm DOPPLER AV Peak Velocity 159.0 cm/s LVOT Peak Velocity 85.0 cm/s AV Area Cont Eq vti 2.2 cm squared AV Area Cont Eq pk 1.7 cm squared MV Peak Velocity 135.0 cm/s MV Area PHT 5.2 cm squared Mitral E to A Ratio 0.8 TV Peak Velocity 214.5 cm/s TR Peak Velocity 283.0 cm/s TR Peak Gradient 32.0 mmHg TV Peak E Velocity 66.0 cm/s PV Peak Velocity 104.0 cm/s FINDINGS Left Ventricle Normal left ventricular size, systolic function and wall thickness, with no regional wall motion abnormalities. Left ventricular ejection fraction is estimated at 60%. Grade I/IV diastolic dysfunction (abnormal relaxation filling pattern), normal to mildly elevated filling pressures. Right Ventricle The right ventricle is normal in size and function. Right Atrium The right atrium is normal in size. Left Atrium The left atrium is normal in size. Mitral Valve Moderately thickened mitral valve. Moderate mitral annular calcification. No mitral valve stenosis. Mild mitral valve regurgitation. Aortic Valve Moderate aortic valve calcification. Mild aortic valve stenosis, mean gradient 3.2 mmHg, MAHSA 2.2 cm squared. Trace aortic valve regurgitation. Tricuspid Valve Structurally normal tricuspid valve without significant stenosis or regurgitation. Pulmonary artery systolic pressure is normal. Pulmonic Valve Structurally normal pulmonic valve without significant stenosis. There is no pulmonic regurgitation. Pericardium Normal pericardium without effusion. Aorta Normal ascending aorta dimension. IVC The inferior vena cava appears normal. CONCLUSIONS Normal left ventricular size, systolic function and wall thickness, with no regional wall motion abnormalities. Left ventricular ejection fraction is estimated at 60%. Grade I/IV diastolic dysfunction (abnormal relaxation filling pattern), normal to mildly elevated filling pressures. Moderately thickened mitral valve. Moderate mitral annular calcification. No mitral valve stenosis. Mild mitral valve regurgitation. Moderate aortic valve calcification. Mild aortic valve stenosis, mean gradient 3.2 mmHg, MAHSA 2.2 cm squared. Trace aortic valve regurgitation. There is no pericardial effusion. Right atrial pressure is around 5 mm of mercury. Clay Carvajal MD (Electronically Signed) Final Date: 16 August 2024 19:37 S
[2024-08-15 08:11] LABS: Troponin 5 6HR 454.9 ng/L (0-10); Troponin 5 6HR Delta 261.9 ng/L (0-12)
[2024-08-15 08:33] LABS: Glucose Point of Care 94 mg/dL (70-110)
--- NOTE | 2024-08-15 09:06 | P.ANESASSM_ITS ---
Pre-Anesthetic Assessment Height/Weight: Height 1.6 m Weight 70.851 kg Temp Pulse Resp BP Pulse Ox O2 Del Method O2 Flow Rate 98.0 F 85 16 110/64 98 Room Air 2 08/15/24 08:11 08/15/24 08:11 08/15/24 08:11 08/15/24 08:11 08/15/24 06:21 08/15/24 06:15 08/14/24 23:28 Operation Date: 08/15/24 12:15 Proposed Procedures p EGD(Not Applicable) - Yeyo Bloom MD Familial anesthetic complications: None Was Beta Breanna taken within 24 hours: N/A Was Clonidine taken within 24 hours: N/A Last intake: > 8 hrs Social No alcohol and No tobacco Exam alert, oriented x 3, clear to auscultation bilaterally and regular rate & rhythm Airway Mallampati: Class II CV/HEM Anemia and Coronary Artery Disease (stents) Troponin bump, found to have clear stents, thought to be caused by hypothermia Anesthetic Plan ASA status: 4 Anesthesia: MAC Risk of > 500 ml blood loss (7ml/kg in children): No Medications/Allergies Home Medications Medication Instructions Recorded Confirmed Last Taken Type allopurinol 100 mg tablet 100 mg PO BEDTIME 09/08/19 08/15/24 07/10/24 History amitriptyline 25 mg tablet 25 mg PO BEDTIME 09/08/19 08/15/24 07/10/24 History pantoprazole 40 mg tablet,delayed 40 mg PO QAM 09/08/19 08/15/24 07/12/24 History release acetaminophen 650 mg 1,300 mg PO BID Pain 07/30/20 08/15/24 07/12/24 History tablet,extended release (Tylenol Arthritis Pain) nitroglycerin 0.4 mg sublingual 0.4 mg sublingual Q5M PRN chest 04/28/21 08/15/24 Unknown Rx tablet (Nitrostat) pain #25 tabs gabapentin 300 mg capsule 300 mg PO TID 05/23/21 08/15/24 07/10/24 History ticagrelor 90 mg tablet (Brilinta) 90 mg PO BID #180 tabs 08/27/21 08/15/24 07/10/24 Rx metoprolol tartrate 25 mg tablet 25 mg PO BID@0900,2100 #120 tabs 11/27/22 08/15/24 07/10/24 Rx atorvastatin 80 mg tablet 80 mg PO BEDTIME #90 tabs 11/10/23 08/15/24 07/10/24 Rx albuterol sulfate 90 mcg/actuation 2 inh inhalation Q4H PRN shortness 05/21/24 08/15/24 Unknown Rx aerosol inhaler of breath or wheezing #6.7 grams insulin glargine 100 unit/mL (3 25 unit SUBCUT DAILY 07/12/24 08/15/24 07/10/24 History mL) subcutaneous pen (Lantus Solostar U-100 Insulin) levothyroxine 75 mcg tablet 75 mcg PO DAILY 07/12/24 08/15/24 07/10/24 History baclofen 5 mg tablet 5 mg PO TID 08/15/24 08/15/24 Unknown History empagliflozin 25 mg tablet 25 mg PO DAILY 08/15/24 08/15/24 Unknown History (Jardiance) Allergies Allergy/AdvReac Type Severity Reaction Status Date / Time codeine Allergy Unknown Unknown Verified 07/15/24 13:25 tetanus and diphtheria Allergy Unknown Verified 07/15/24 13:25 toxoids Tetanus Vaccines and Toxoid Allergy Unknown Verified 07/15/24 13:25 Current Medications Generic Name Dose Route Start Last Admin Trade Name Freq PRN Reason Stop Dose Admin Ceftriaxone Sodium 1,000 mg 08/15/24 07:30 08/15/24 07:43 Ceftriaxone 1,000 Mg Sdv IVP 1,000 mg Q24H CHARLI Administration Protocol Fentanyl 50 mcg 08/15/24 00:25 08/15/24 07:43 Fentanyl 50 Mcg/Ml Inj 2ml IVP 50 mcg PRN PRN Administration PAIN Sodium Chloride 1,000 mls @ 100 mls/hr 08/15/24 00:30 08/15/24 06:24 Sodium Chloride 0.9% IV 100 mls/hr .Q10H CHARLI Infusion Morphine Sulfate 2 mg 08/15/24 00:44 08/15/24 05:41 Morphine 4 Mg/Ml Sdv 1 Ml IVP 2 mg Q4H PRN Administration SEVERE PAIN Pantoprazole Sodium 40 mg 08/15/24 07:30 08/15/24 07:27 Pantoprazole 40 Mg Sdv IVP 40 mg BID CHARLI Administration PFSH Anesthesia Medical History Chest pain Coronary stent thrombosis Had stent thrombosis x2 during hospitalization with likely mechanism of plavix resistance ST elevation myocardial infarction (STEMI) History of PR (myocardial infarction) Coronary artery disease PAD (peripheral artery disease) HTN (hypertension) Surgical History H/O esophagogastroduodenoscopy (12/19/20) Gastric erosions Status post colonoscopy (12/19/20) Extensive diverticulosis H/O section S/P breast biopsy S/P PTCA (percutaneous transluminal coronary angioplasty) S/P appendectomy History of cholecystectomy S/P femoral-popliteal bypass surgery Family History Other CAD (coronary artery disease) Cancer Diabetes Hypertension Stroke Social History Smoking and tobacco/nicotine status: former use of tobacco/nicotine Quit status (tobacco/nicotine): has quit using Year quit tobacco: 2016 Alcohol intake: never Substance/Drug Use: never Data Anesthesia 08/15/24 05:30 08/15/24 05:30 Short CBC 08/14/24 08/15/24 Range/Units 23:30 05:30 WBC 13.32 H 10.49 (3.29-11.43) 10^3/uL Hgb 6.30 L* 7.00 L (11.27-16.99) g/dL Hct 23.8 L 23.7 L (36-47) % MCV 79.9 L 78.7 L (85-98) fl Plt Count 427 H 272 D (157-399) 10^3/cmm Neut % (Auto) 77.8 81.9 % Neut # (Auto) 10.37 H 8.60 H (1.8-7.7) 10^3/uL BMP 08/14/24 08/15/24 23:30 05:30 Sodium 138 139 Potassium 3.5 3.7 Chloride 96 L 102 Carbon Dioxide 11 L 16 L BUN 44 H 41 H Creatinine 1.5 H 1.1 H Glucose 244 H 83 Calcium 8.8 8.1 L Cardiac Enzymes 08/14/24 08/15/24 08/15/24 Range/Units 23:30 01:18 05:30 Troponin T Baseline 193 H* (0-10) ng/L Troponin T 120 Minute 268.9 H (0-10) ng/L Delta Troponin T 75.9 H* (0-10) ABS# Troponin T Hi Sens 6Hr 454.9 H (0-10) ng/L Troponin T Hi Sens 6Hr Delta 261.9 H* (0-12) ng/L Liver Function 08/14/24 Range/Units 23:30 Total Bilirubin 1.1 (0.15-1.2) mg/dL AST 47 H (0-32) U/L ALT 11 (0-33) U/L Alkaline Phosphatase 115 H (35-105) U/L Albumin 3.6 (3.5-5.2) g/dL Urine 08/15/24 Range/Units 04:08 Urine Color Yellow (Yellow) Urine Appearance Turbid A (CLEAR) Urine pH 5.0 (5-7) Ur Specific Hobson 1.053 H (1.005-1.030) Urine Protein 1+ A (Negative) Urine Glucose (UA) 3+ H (Normal) Urine Ketones 1+ H (Negative) Urine Nitrate Negative (Negative) Urine Bilirubin Negative (Negative) Ur Leukocyte Esterase 2+ A (Negative) Urine RBC >100 H (0-2) /hpf Urine WBC >100 H (0-5) /hpf Blood Bank 08/15/24 01:18 Blood Type B Negative Rho(D) Type Rh negative Antibody Screen Negative Coags 08/15/24 08/15/24 01:18 05:30 APTT 146.6 H 45.6 H D Cardiac Studies: 2 Echocardiogram 08/17/23 Echocardiogram Ultrasound 08/01/20
[2024-08-15] MEDS: atorvastatin 40 mg Tablet PO (10:04)
--- NOTE | 2024-08-15 10:10 | ANE.PACU2 ---
Inpatient post-anesthesia follow up: Airway intact: Yes Vital signs: Temperature 97.8 F Pulse Rate 77 Respiratory Rate 15 Blood Pressure 93/64 Pulse Oximetry 98 Oxygen Delivery Me thod Room Air Oxygen Flow Rate 2 Fraction of Inspir ed Oxygen Hydration adequate: Yes Nausea and vomiting: No Pain level: 1 Mental status: Baseline
[2024-08-15 10:14] LABS: Basophils % 0.3 %; Eosinophils # 0.1 10^3/uL (0.0-0.8); Eosinophils % 0.5 %; Hematocrit 30.3 % (36-47); Lymphocytes # 1.2 10^3/uL (0.8-4.8); Lymphocytes % 11.2 %; Mean Corpuscular Hemoglobin 23.9 pg (27-33); Mean Corpuscular Volume 79.5 fl (85-98); Monocytes # 0.9 10^3/uL (0.2-0.9); Neutrophils # 7.99 10^3/uL (1.8-7.7); Neutrophils % 78.1 %; Nucleated Red Blood Cells # 0.1 /100WBC; Nucleated Red Blood Cells % 1.3 %; Platelet Count 259 10^3/cmm (157-399); Red Blood Count 3.81 10^6/uL (3.85-5.65); Red Cell Distribution Width 18.7 % (12.1-15.1); White Blood Count 10.23 10^3/uL (3.29-11.43)
--- NOTE | 2024-08-15 10:28 | PM.MISC ---
Miscellaneous Note Purpose of Documentation: Update on patient care Note: Upper endoscopy was done today. There was no active bleeding but there was significant inflammation in the antrum as well as some erosions, consistent with recent bleeding. I took biopsy of the antrum to rule out H. pylori. Patient will have to stay on twice a day PPI and also Carafate twice a day. I will follow-up with her as outpatient and plan to repeat endoscopy in 4 to 6 weeks as needed.
--- NOTE | 2024-08-15 10:34 | PC.NURSE ---
0750 -- Right femoral sheath pulled as ordered. Manual pressure held x 15 minutes. No bleeding or hematoma, clear occlusive dressing applied. Tolerated well. 0920 -- To GI lab via bed. Dressing to right groin remains c/d/i with no bleeding, bruising or hematoma. 0953 -- Returned from GI lab via bed. No reports of pain or discomfort. V/S remain stable. Dressing to right groin remains c/d/i with no bleeding, bruising, or hematoma. 1030 -- Repeat H&H 9.0 & 30.3
[2024-08-15] MEDS: lidocaine 5% Patch 1 PATCH TOPICAL ×2 (10:56→22:09)
[2024-08-15 11:25] LABS: Glucose Point of Care 78 mg/dL (70-110)
--- NOTE | 2024-08-15 12:51 | PC.NURSE ---
1043 -- Notified Dr. Salgado of H&H 9.1 & 30.3. Notified that patient is reporting pain to right shoulder which is a chronic pain. Lidocain patch ordered for patient.
--- NOTE | 2024-08-15 14:35 | P.PN_ITS ---
<Statement entered by Rashaad Jensen M.D - 08/16/24 20:31> Patient was evaluated and cared for in conjunction with an advanced practice practitioner. I personally examined the patient and reviewed the chart and all pertinent data including imaging, telemetry, and laboratory results. I discussed the patient in detail with the advanced practice practitioner. Please see their note for complete progress note, results and agreed upon plan of care for the patient. Patient feeling better. No chest pain. GENERAL: Patient is alert and oriented HEART: Regular S1 and S2 LUNGS: Clear to auscultation bilaterally EXTREMITIES: Lower extremities with no edema Subjective 2 Subjective: Patient was seen this morning. During the night last night she was taken for coronary angiogram revealing patent left main, LAD, left circumflex, patent previously placed RCA stents. Hemoglobin found to be 6.3, 2 units transfused. Plan is for EGD today. She has history of Plavix insensitivity-will require Brilinta once GI bleeding is resolved. Echocardiogram ordered. No chest pain this morning. Vitals/I&O/Wt Last Vital Signs Temp 97.8 F 08/15/24 12:00 Pulse 74 08/15/24 14:00 Resp 16 08/15/24 14:00 BP 111/58 08/15/24 14:00 Pulse Ox 97 08/15/24 14:00 O2 Del Method Room Air 08/15/24 14:00 O2 Flow Rate 2 08/14/24 23:28 08/14/24 08/15/24 08/15/24 22:59 06:59 14:59 Intake Total 1030 / 1030 1073.333 / 1073.333 Output Total 400 / 400 Balance 630 / 630 1073.333 / 1073.333 Weight last 48 hrs Weight 156 lb 3.2 oz Weight 159 lb 12.8 oz Weight 159 lb 8 oz Weight 150 lb Physical Exam 2 Const: COMMON NORMALS: no acute distress and patient oriented x3 GENERAL APPEARANCE: cooperative and comfortable ORIENTATION/CONSCIOUSNESS: Yes awake, Yes oriented to person, Yes oriented to place and Yes oriented to time Chest: COMMONS NORMALS: normal inspection of the chest and normal palpation of entire chest wall CHEST: Yes Symmetrical chest wall rise Resp: COMMON NORMALS: normal respiratory effort, No retractions, No use of accessory muscles and clear to auscultation bilaterally EFFORT & INSPECTION: Yes symmetric chest movement AUSCULTATION: clear to auscultation bilaterally Cardio: COMMON NORMALS: regular rate, regular rhythm, S1 normal heart sound present, S2 normal heart sound present, No gallops present (Cardio), No clicks present (Cardio), No murmurs present (Cardio) and No rub (Cardio) RATE: r egular rate RHYTHM: regular rhythm HEART SOUNDS: S1 normal heart sound present and S2 normal heart sound present PERIPHERAL PULSES: radial pulses present Extremity: COMMON NORMALS: no pedal edema Neuro: COMMON NORMALS: patient oriented x3 and moves all extremities S ENSORIUM/ORIENTATION: Yes oriented to person, Yes oriented to place and Yes oriented to time Urinary Catheter Management: [place]: Cath Placed During This Visit: yes Reason for Continuing Indwelling Catheter: Accurate Measurement of Urinary Output in Critically Ill Patients Urinary Catheter Date of Insertion: 08/15/24 Urinary Catheter Time of Insertion: 04:00 Data 08/15/24 10:07 08/15/24 05:30 Micro: Microbiology 08/15/24 07:14 Occult Blood (FIT) - Final Stool - Stool Aspirate A&P Assessment and plan (1) ST elevation (STEMI) myocardial infarction: (2) PAD (peripheral artery disease): (3) Melena: (4) Hypothermia: Plan Patent coronary arteries by coronary angiogram this morning. No intervention performed. EGD planned today. Once hemoglobin is stable will restart Brilinta. Attestations 2 Medical Necessity Statement*: STEMI, GI workup, anemia Coding Level of Care Code Acute Code for [facility] Fwd Diagnoses ST elevation (STEMI) myocardial infarction I21.3 PAD (peripheral artery disease) I73.9 Melena K92.1 Hypothermia T68.XXXA
[2024-08-15] MEDS: sucralfate 1 gm/10 mL Oral Liq UDC PO ×2 (16:04→21:56)
[2024-08-15 17:17] LABS: Glucose Point of Care 100 mg/dL (70-110)
--- NOTE | 2024-08-15 21:50 | PC.NURSE ---
Spoke with Dr. Bennett in referene to this patient requesting her gabapentin, PO, 300mg TID be started as that is a home medication that controls her nerve pain well. Received orders from Dr. Bennett to start gabapentin, 300mg PO TID.
[2024-08-15] MEDS: gabapentin 300 mg Capsule PO (21:57)
[2024-08-15 22:43] LABS: Glucose Point of Care 155 mg/dL (70-110)
[2024-08-16] VITALS (24 sets, daily range): BP systolic 93–137; BP diastolic 48–85; PULSE 72–108; RESP 15–31; TEMP 36.1–36.8; O2SAT 91–98
[2024-08-16 05:54] LABS: Basophils % 0.5 %; Eosinophils # 0.2 10^3/uL (0.0-0.8); Eosinophils % 2.1 %; Hematocrit 28.9 % (36-47); Lymphocytes # 1.5 10^3/uL (0.8-4.8); Lymphocytes % 17.5 %; Mean Corpuscular HGB Conc 30.1 g/dL (30-55); Mean Corpuscular Hemoglobin 24.3 pg (27-33); Mean Corpuscular Volume 80.7 fl (85-98); Mean Platelet Volume 9.3 fL (7.4-10.4); Monocytes # 0.8 10^3/uL (0.2-0.9); Monocytes % 8.8 %; Neutrophils # 5.95 10^3/uL (1.8-7.7); Neutrophils % 69.9 %; Nucleated Red Blood Cells # 0.2 /100WBC; Nucleated Red Blood Cells % 1.8 %; Platelet Count 208 10^3/cmm (157-399); Red Blood Count 3.58 10^6/uL (3.85-5.65); Red Cell Distribution Width 18.9 % (12.1-15.1); White Blood Count 8.51 10^3/uL (3.29-11.43)
[2024-08-16 06:22] LABS: Anion Gap 20.3 (5-19); Blood Urea Nitrogen 22 mg/dL (8-23); Calcium 7.9 mg/dL (8.5-10.5); Carbon Dioxide 17 mmol/L (22-29); Chloride 107 mmol/L (98-107); Creatinine Clr Calc Pharmacy 52.9306; Glucose 94 mg/dL (65-115); Osmolality Calculated 295 mOsm/kg (285-295); Potassium 3.3 mmol/L (3.5-5.1); Sodium 141 mmol/L (136-145)
[2024-08-16] MEDS: sucralfate 1 gm/10 mL Oral Liq UDC PO ×4 (06:40→21:10)
[2024-08-16] MEDS: cefTRIAXone 1,000 mg SDV 1000 MG IVP (06:40)
[2024-08-16 07:41] LABS: Glucose Point of Care 117 mg/dL (70-110)
--- NOTE | 2024-08-16 07:52 | P.PN_ITS ---
Subjective 2 Subjective: Patient doing well overnight, vital signs have been stable and hemoglobin has up trended. She still feeling weak and somehow dizzy Vitals/I&O/Wt Last Vital Signs Temp 97.8 F 08/15/24 20:00 Pulse 85 08/16/24 06:00 Resp 15 08/16/24 05:00 BP 114/65 08/16/24 06:00 Pulse Ox 97 08/16/24 05:00 O2 Del Method Room Air 08/15/24 20:00 O2 Flow Rate 2 08/14/24 23:28 08/15/24 08/16/24 08/16/24 22:59 06:59 14:59 Intake Total 1620 / 2693.333 220 / 2913.333 Output Total 600 / 600 600 / 1200 Balance 1020 / 2093.333 -380 / 1713.333 Weight last 48 hrs Weight 156 lb 3.2 oz Weight 156 lb 3.2 oz Weight 159 lb 12.8 oz Weight 159 lb 8 oz Weight 150 lb Physical Exam 2 GI: OTHER: Abdomen is soft, very minimal tenderness in the epigastrium Urinary Catheter Management: [place]: Cath Placed During This Visit: yes Reason for Continuing Indwelling Catheter: Accurate Measurement of Urinary Output in Critically Ill Patients Urinary Catheter Date of Insertion: 08/15/24 Urinary Catheter Time of Insertion: 04:00 Data 08/16/24 05:21 08/16/24 05:21 Micro: Microbiology 08/15/24 07:14 Occult Blood (FIT) - Final Stool - Stool Aspirate A&P Assessment and plan (1) Melena: Plan Good progression from the surgical standpoint. Can be advanced to GI soft diet as tolerated from my standpoint. Should continue p.o. liquid Carafate and pantoprazole twice a day. Can follow-up with me in 2 weeks to talk about pathology and to decide the need to repeat endoscopy in the future. Attestations 2 Medical Necessity Statement*: Per medical team Coding Level of Care Code Acute Code for g Fwd Diagnoses Melena K92.1
[2024-08-16] MEDS: atorvastatin 40 mg Tablet PO (09:14)
[2024-08-16] MEDS: potassium chloride oral liq 20 mEq/15 mL UDC 40 MEQ PO (09:16)
[2024-08-16] MEDS: ticagrelor 90 mg Tablet PO ×2 (09:17→17:10)
[2024-08-16] MEDS: gabapentin 300 mg Capsule PO ×3 (09:17→21:12)
[2024-08-16] MEDS: ciprofloxacin 400 MG/200 ML PREMIX 200 MG IV ×2 (09:26→19:01)
[2024-08-16] MEDS: pantoprazole 40 mg SDV IVP ×2 (09:27→17:53)
[2024-08-16] MEDS: lidocaine 5% Patch 1 PATCH TOPICAL ×2 (09:28→23:51)
[2024-08-16] MEDS: sodium chloride 0.9% 1,000 ML 100 ML IV (09:28)
--- NOTE | 2024-08-16 11:35 | P.PN_ITS ---
Subjective 2 Subjective: Patient reports overall she feels terrible. She states that her whole body feels sore and she is diffusely weak. She denies chest pain or shortness of breath. She notes that her stool is still black and tarry. We discussed that process may continue for an additional 24 to 48 hours post her GI tract clears out. Discussed her hemoglobin is stabilized. Discussed plan of care for today. Encouraged her to out of bed to chair today with assistance. Medications: Reviewed: Yes Vitals/I&O/Wt Last Vital Signs Temp 97.7 F 08/16/24 08:00 Pulse 95 08/16/24 08:28 Resp 16 08/16/24 08:28 BP 119/85 08/16/24 08:00 Pulse Ox 92 08/16/24 08:28 O2 Del Method Room Air 08/16/24 08:28 O2 Flow Rate 2 08/14/24 23:28 08/15/24 08/16/24 08/16/24 22:59 06:59 14:59 Intake Total 1620 / 2693.333 220 / 2913.333 1000 / 1000 Output Total 600 / 600 600 / 1200 Balance 1020 / 2093.333 -380 / 4837.230 2502 / 1000 Weight last 48 hrs Weight 70.851 kg Weight 70.851 kg Weight 72.484 kg Weight 72.348 kg Weight 68.039 kg Physical Exam 2 Narrative: General: Patient is awake. Appears fatigued but pleasant. Head: Normocephalic. Atraumatic. EOM intact. Mucous membranes are pale. Neck: No JVD. Cardiovascular: RRR. No gallops. No murmurs. Lungs: Clear to auscultation, no use of accessory muscles, no crackles or wheezes. Skin: No jaundice. No rashes. Abdomen: Normal bowel sounds, abdomen soft and nontender. Genito Urinary: Genital exam not performed since complaints not related. Rectal: Rectal exam not performed since no symptoms indicated blood loss. Extremities: No cyanosis or clubbing. Musculoskeletal: No swollen or erythematous joints. Neurological: Moves all 4 extremities. No myoclonus. Urinary Catheter Management: Montgomery: Cath Placed During This Visit: yes Reason for Continuing Indwelling Catheter: Accurate Measurement of Urinary Output in Critically Ill Patients Urinary Catheter Date of Insertion: 08/15/24 Urinary Catheter Time of Insertion: 04:00 Data 08/16/24 05:21 08/16/24 05:21 Micro: Microbiology 08/15/24 07:14 Occult Blood (FIT) - Final Stool - Stool Aspirate A&P Assessment and plan (1) Melena: Acute blood loss anemia resulting in hemorrhagic shock secondary to acute upper GI bleed Now off vasopressors Continue IV PPI twice daily Continue liquid Carafate Patient discussed with general surgery, will advance to GI soft diet today Monitor for evidence of rebleeding (2) ST elevation (STEMI) myocardial infarction: Cardiac cath report reviewed Cardiology following, appreciate recommendations Restart Brilinta Continue high intensity statin (3) PAD (peripheral artery disease): Continue statin and restarting Brilinta as above (4) Diabetes: SSI (5) UTI (urinary tract infection): Follow Ux Continue abx Diflucan PRN (6) Weakness: Encourage OOB PT and OT requested (7) Hypothermia: Resolved Plan DVT ppx: SCD Attestations 2 Medical Necessity Statement*: Thank for this consultation. Medicine will continue to follow. She requires ongoing hospitalization for IV PPI, IV antibiotics, monitoring for GI rebleeding, therapy, and supportive care. Coding Level of Care Code Acute Code for [facility] Fwd Diagnoses Melena K92.1 ST elevation (STEMI) myocardial infarction I21.3 PAD (peripheral artery disease) I73.9 Diabetes E11.9 UTI (urinary tract infection) N39.0 Weakness R53.1 Hypothermia T68.XXXA
[2024-08-16 11:47] LABS: Glucose Point of Care 169 mg/dL (70-110)
[2024-08-16] MEDS: acetaminophen 325 mg Tablet 650 MG PO ×2 (12:35→21:12)
[2024-08-16] MEDS: insulin lispro 100 unit/1 mL SUBCUT (12:36)
--- NOTE | 2024-08-16 13:46 | P.PN_ITS ---
<Statement entered by Rashaad Jensen M.D - 08/16/24 21:06> Patient was evaluated and cared for in conjunction with an advanced practice practitioner. I personally examined the patient and reviewed the chart and all pertinent data including imaging, telemetry, and laboratory results. I discussed the patient in detail with the advanced practice practitioner. Please see their note for complete progress note, results and agreed upon plan of care for the patient. Patient feeling well. Monitor Hgb. Started back on brilinta, if no bleeding, can continue. If has further drop in hgb, will need further workup and may need to downtitrate brilinta to aspirin. GENERAL: Patient is alert and oriented HEART: Regular S1 and S2 LUNGS: Clear to auscultation bilaterally EXTREMITIES: Lower extremities with no edema Subjective 2 Subjective: She is sitting up in bed, reports she still does not feel well. Hemoglobin 8.7 today after 2 units packed red blood cells yesterday. Also started on Carafate and Protonix. No chest pain or shortness of breath overnight or this morning. Blood pressure stable. Encouraged her to get out of bed to the chair. Vitals/I&O/Wt Last Vital Signs Temp 97.7 F 08/16/24 08:00 Pulse 95 08/16/24 08:28 Resp 16 08/16/24 08:28 BP 119/85 08/16/24 08:00 Pulse Ox 92 08/16/24 08:28 O2 Del Method Room Air 08/16/24 08:28 O2 Flow Rate 2 08/14/24 23:28 08/15/24 08/16/24 08/16/24 22:59 06:59 14:59 Intake Total 1620 / 2913.333 220 / 2913.333 1000 / 1000 Output Total 600 / 1200 600 / 1200 Balance 1020 / 1713.333 -380 / 7006.336 4806 / 1000 Weight last 48 hrs Weight 156 lb 3.2 oz Weight 156 lb 3.2 oz Weight 159 lb 12.8 oz Weight 159 lb 8 oz Weight 150 lb Physical Exam 2 Const: COMMON NORMALS: no acute distress and patient oriented x3 GENERAL APPEARANCE: cooperative and comfortable ORIENTATION/CONSCIOUSNESS: Yes awake, Yes oriented to person, Yes oriented to place and Yes oriented to time Chest: COMMONS NORMALS: normal inspection of the chest and normal palpation of entire chest wall CHEST: Yes Symmetrical chest wall rise Resp: COMMON NORMALS: normal respiratory effort, No retractions, No use of accessory muscles and clear to auscultation bilaterally EFFORT & INSPECTION: Yes symmetric chest movement AUSCULTATION: clear to auscultation bilaterally Cardio: COMMON NORMALS: regular rate, regular rhythm, S1 normal heart sound present, S2 normal heart sound present, No gallops present (Cardio), No clicks present (Cardio), No murmurs present (Cardio) and No rub (Cardio) RATE: r egular rate RHYTHM: regular rhythm HEART SOUNDS: S1 normal heart sound present and S2 normal heart sound present PERIPHERAL PULSES: radial pulses present Extremity: COMMON NORMALS: no pedal edema Neuro: COMMON NORMALS: patient oriented x3 and moves all extremities S ENSORIUM/ORIENTATION: Yes oriented to person, Yes oriented to place and Yes oriented to time Urinary Catheter Management: [place]: Cath Placed During This Visit: yes Reason for Continuing Indwelling Catheter: Accurate Measurement of Urinary Output in Critically Ill Patients Urinary Catheter Date of Insertion: 08/15/24 Urinary Catheter Time of Insertion: 04:00 Data 08/16/24 05:21 08/16/24 05:21 Micro: Microbiology 08/15/24 07:14 Occult Blood (FIT) - Final Stool - Stool Aspirate A&P Assessment and plan (1) ST elevation (STEMI) myocardial infarction: Came in with STEMI on 08/14/2024, coronary angiogram showed patent coronary arteries. Brilinta restarted this morning, will observe hemoglobin. Continue atorvastatin. Can restart metoprolol tartrate at 12.5 mg twice a day, can uptitrate to her home dose of 25mg BID depending on blood pressure response. She takes levothyroxine at home, has not had a TSH checked here and has not had a dose of levothyroxine since admission. Will check TSH today. (2) PAD (peripheral artery disease): Attestations 2 Medical Necessity Statement*: STEMI, observation of hemoglobin after reintroduction of Brilinta Coding Level of Care Code Acute Code for [facility] [place] Fwd Diagnoses ST elevation (STEMI) myocardial infarction I21.3 PAD (peripheral artery disease) I73.9
[2024-08-16 14:33] LABS: Thyroid Stimulating Hormone 1.94 uIU/mL (0.27-4.20)
[2024-08-16 17:52] LABS: Glucose Point of Care 118 mg/dL (70-110)
--- NOTE | 2024-08-16 19:20 | PC.NURSE ---
Shift summary: VSS. Sinus rhythm noted on monitor. Pt rested in bed in the am. She was reluctant to get out of bed to chair, in fact she refused PT the first time. Eventually she did sit up in chair around lunch time. She stayed up around 2 hours then PT assisted her back to bed. er diet was changed to GI soft. She ate her meals well. She xmr342 of urine output. She was incontinent of stool twice, it was liquid and brown. She requested diapers after that. No more BMs the rest of the shift. Senna held due t the diarrhea. IVF were at 100ml/hr discontinued. She was started on Cipro IVPB today. She did complain of all over pain. She likes to take acetaminophen with her gabapentin, she shays it helps.
[2024-08-16] MEDS: metoprolol tartrate 25 mg Tablet 12.5 MG PO (21:11)
[2024-08-16 21:24] LABS: Glucose Point of Care 190 mg/dL (70-110)
[2024-08-17] VITALS (17 sets, daily range): BP systolic 103–142; BP diastolic 58–86; PULSE 64–97; RESP 13–27; TEMP 36.6–36.8; O2SAT 94–98
[2024-08-17 04:40] LABS: Basophils % 0.4 %; Eosinophils # 0.2 10^3/uL (0.0-0.8); Eosinophils % 2.7 %; Hematocrit 26.7 % (36-47); Lymphocytes # 1.5 10^3/uL (0.8-4.8); Lymphocytes % 19.1 %; Mean Corpuscular HGB Conc 30.3 g/dL (30-55); Mean Corpuscular Hemoglobin 23.8 pg (27-33); Mean Corpuscular Volume 78.5 fl (85-98); Monocytes # 0.6 10^3/uL (0.2-0.9); Monocytes % 8.1 %; Neutrophils # 5.44 10^3/uL (1.8-7.7); Neutrophils % 68.8 %; Nucleated Red Blood Cells # 0.1 /100WBC; Nucleated Red Blood Cells % 1.8 %; Platelet Count 171 10^3/cmm (157-399); Red Cell Distribution Width 19.3 % (12.1-15.1)
[2024-08-17 05:07] LABS: Anion Gap 13.4 (5-19); Blood Urea Nitrogen 16 mg/dL (8-23); Calcium 7.8 mg/dL (8.5-10.5); Carbon Dioxide 20 mmol/L (22-29); Chloride 110 mmol/L (98-107); Creatinine Clr Calc Pharmacy 47.0494; Glucose 127 mg/dL (65-115); Osmolality Calculated 293 mOsm/kg (285-295); Potassium 3.4 mmol/L (3.5-5.1); Sodium 140 mmol/L (136-145)
[2024-08-17] MEDS: ciprofloxacin 400 MG/200 ML PREMIX 200 MG IV ×2 (06:21→18:27)
[2024-08-17] MEDS: sucralfate 1 gm/10 mL Oral Liq UDC PO ×4 (06:21→20:28)
[2024-08-17 07:30] LABS: Glucose Point of Care 241 mg/dL (70-110)
[2024-08-17] MEDS: insulin lispro 100 unit/1 mL SUBCUT (08:37)
[2024-08-17] MEDS: pantoprazole 40 mg SDV IVP ×2 (08:37→18:08)
[2024-08-17] MEDS: potassium chloride ER 20 mEq Tablet 40 MEQ PO (08:38)
[2024-08-17] MEDS: ticagrelor 90 mg Tablet PO (08:38)
[2024-08-17] MEDS: metoprolol tartrate 25 mg Tablet 12.5 MG PO ×2 (08:38→20:28)
[2024-08-17] MEDS: gabapentin 300 mg Capsule PO ×3 (08:38→20:28)
[2024-08-17] MEDS: atorvastatin 40 mg Tablet PO (08:38)
[2024-08-17] MEDS: lidocaine 5% Patch 1 PATCH TOPICAL ×2 (08:40→20:28)
[2024-08-17] MEDS: fluconazole 100 mg Tablet 200 MG PO (08:40)
--- NOTE | 2024-08-17 11:55 | PM.PN ---
Subjective Subjective: Patient states she is feeling slightly better today. We discussed the slight drop in her hemoglobin with plans for repeat labs later today. She is in agreement. She does endorse severe weakness. Discussed recommendation for postacute rehab before going home. She is now agreeable. Discussed urine culture results. She agrees to start Diflucan. Denies other new complaints. Medications: Reviewed: Yes Vitals/I&O/Wt Last Vital Signs Temp 98.1 F 08/17/24 04:00 Pulse 90 08/17/24 09:48 Resp 16 08/17/24 09:48 BP 140/66 08/17/24 06:00 Pulse Ox 94 08/17/24 09:48 O2 Del Method Room Air 08/17/24 09:48 O2 Flow Rate 2 08/14/24 23:28 08/16/24 08/17/24 08/17/24 22:59 06:59 14:59 Intake Total 600 / 2100 Output Total 675 / 675 900 / 1575 Balance -75 / 1425 -900 / 525 Weight last 48 hrs Weight 72.743 kg Weight 70.851 kg Physical Exam Narrative: General: Patient is awake. More alert. Pleasant. Head: Normocephalic. Atraumatic. EOM intact. Mucous membranes remain pale. Neck: No JVD. Cardiovascular: RRR. No gallops. No murmurs. Lungs: Clear to auscultation, no use of accessory muscles, no crackles or wheezes. Skin: No jaundice. No rashes. Abdomen: Normal bowel sounds, abdomen soft and nontender. Extremities: No cyanosis or clubbing. Musculoskeletal: No swollen or erythematous joints. Neurological: Moves all 4 extremities. No myoclonus. Urinary Catheter Management: [place]: Cath Placed During This Visit: yes Reason for Continuing Indwelling Catheter: Accurate Measurement of Urinary Output in Critically Ill Patients Urinary Catheter Date of Insertion: 08/15/24 Urinary Catheter Time of Insertion: 04:00 Data 08/17/24 04:28 08/17/24 04:28 Micro: Microbiology 08/15/24 04:08 Urine Culture - Preliminary Urine,Clean Catch Yeast species A&P Assessment and plan (1) Melena: Acute blood loss anemia resulting in hemorrhagic shock secondary to acute upper GI bleed Shock is resolved Continue IV PPI twice daily Continue liquid Carafate Repeat labs this afternoon (2) ST elevation (STEMI) myocardial infarction: Cardiology following, appreciate recommendations Continue Brilinta Continue high intensity statin (3) PAD (peripheral artery disease): Continue statin and antiplatelet (4) Diabetes: SSI (5) UTI (urinary tract infection): Continue abx Start Diflucan (6) Weakness: Continue therapy, anticipate she will need postacute rehabilitation Plan DVT ppx: SCD Attestations Medical Necessity Statement*: Patient requires ongoing hospitalization for serial labs, IV PPI, IV antibiotics, therapy, and supportive care Coding Level of Care Code Acute Code for [facility] Diagnoses Melena K92.1 ST elevation (STEMI) myocardial infarction I21.3 PAD (peripheral artery disease) I73.9 Diabetes E11.9 UTI (urinary tract infection) N39.0 Weakness R53.1
[2024-08-17 12:10] LABS: Glucose Point of Care 126 mg/dL (70-110)
--- NOTE | 2024-08-17 13:04 | P.PN_ITS ---
<Statement entered by Rashaad Jensen M.D - 08/17/24 20:43> Patient was cared for in conjunction with an advanced practice practitioner. I personally reviewed the chart and all pertinent data including imaging, telemetry, and laboratory results. I discussed the patient in detail with the advanced practice practitioner. Please see their note for complete progress note, results and agreed upon plan of care for the patient. Subjective 2 Subjective: Patient seen this morning. She is sitting up in the chair eating breakfast, reports she feels much better. No chest pain or shortness of breath. Hemoglobin however is down to 8.1 today. BUN 16, creatinine 0.9. Blood pressures stable and not hypotensive. Consideration was for stopping the Brilinta and continuing aspirin, however due to her previous history with a significant GI bleed requiring transport to [place] she does not want to try any aspirin at this point. Will see if we can obtain Brilinta 60 mg twice daily for her, she notes she gets patient assistance for Brilinta through her PCP, we may need to communicate her dose change to update that prescription on discharge. She did have 1 black stool today, will hold other doses of Brilinta until scheduled CBC at 3 PM. If she has had a further decline in hemoglobin may need to continue to hold Brilinta. TSH 1.94. Vitals/I&O/Wt Last Vital Signs Temp 98.1 F 08/17/24 04:00 Pulse 90 08/17/24 09:48 Resp 16 08/17/24 09:48 BP 140/66 08/17/24 06:00 Pulse Ox 94 08/17/24 09:48 O2 Del Method Room Air 08/17/24 09:48 O2 Flow Rate 2 08/14/24 23:28 08/16/24 08/17/24 08/17/24 22:59 06:59 14:59 Intake Total 600 / 2100 Output Total 675 / 1575 900 / 1575 Balance -75 / 525 -900 / 525 Weight last 48 hrs Weight 160 lb 5.917 oz Weight 156 lb 3.2 oz Physical Exam 2 Const: COMMON NORMALS: no acute distress and patient oriented x3 GENERAL APPEARANCE: cooperative and comfortable ORIENTATION/CONSCIOUSNESS: Yes awake, Yes oriented to person, Yes oriented to place and Yes oriented to time Chest: COMMONS NORMALS: normal inspection of the chest and normal palpation of entire chest wall CHEST: Yes Symmetrical chest wall rise Resp: COMMON NORMALS: normal respiratory effort, No retractions, No use of accessory muscles and clear to auscultation bilaterally EFFORT & INSPECTION: Yes symmetric chest movement AUSCULTATION: clear to auscultation bilaterally Cardio: COMMON NORMALS: regular rate, regular rhythm, S1 normal heart sound present, S2 normal heart sound present, No gallops present (Cardio), No clicks present (Cardio), No murmurs present (Cardio) and No rub (Cardio) RATE: r egular rate RHYTHM: regular rhythm HEART SOUNDS: S1 normal heart sound present and S2 normal heart sound present PERIPHERAL PULSES: radial pulses present Extremity: COMMON NORMALS: no pedal edema Neuro: COMMON NORMALS: patient oriented x3 and moves all extremities S ENSORIUM/ORIENTATION: Yes oriented to person, Yes oriented to place and Yes oriented to time Urinary Catheter Management: [place]: Cath Placed During This Visit: yes Reason for Continuing Indwelling Catheter: Accurate Measurement of Urinary Output in Critically Ill Patients Urinary Catheter Date of Insertion: 08/15/24 Urinary Catheter Time of Insertion: 04:00 Data 08/17/24 04:28 08/17/24 04:28 Micro: Microbiology 08/15/24 04:08 Urine Culture - Preliminary Urine,Clean Catch Yeast species A&P Assessment and plan (1) ST elevation (STEMI) myocardial infarction: (2) PAD (peripheral artery disease): Plan Came in with STEMI on 08/14/2024, coronary angiogram showed patent coronary arteries. Brilinta was restarted, patient has had a black stool today, rechecking hemoglobin later today. Holding aspirin and Brilinta. Continue atorvastatin, metoprolol tartrate 12.5 mg twice daily. Attestations 2 Medical Necessity Statement*: Anemia, possible GI bleeding, STEMI Coding Level of Care Code Acute Code for [facility] Diagnoses ST elevation (STEMI) myocardial infarction I21.3 PAD (peripheral artery disease) I73.9
[2024-08-17] MEDS: acetaminophen 325 mg Tablet 650 MG PO (14:56)
[2024-08-17 16:29] LABS: Hematocrit 27.9 % (36-47)
[2024-08-17 17:23] LABS: Glucose Point of Care 139 mg/dL (70-110)
--- NOTE | 2024-08-17 19:30 | PC.NURSE ---
Shift summary: Pt much less reluctant today. She was ready to get out of bed to chair for breakfast. She stat for approx. 2 hrs then back to bed. She transfers easier today. She sat on side of bed at lunch, then to [facility] then to chair. She walked with physical therapy today. She does require coaxing at times. She is nervous about her HBg and if she has any more bloody stools. She had 1 Bm today it was brown with a red tinge. Both Dr Salgado and Patty You NP notified. Hct/hgb rechecked this afternoon. It did decrease to 8.6 from 8.7. notified and confirmed Brillinta was still to be admin. Pt nervous about that . She declined this evening's Brillinta stating she would take it in the morning again. Blood sugars have been good, she only requires insulin around lunch. 650 ml of urne output today. She enjoyed every meal today, per her.
[2024-08-17 21:38] LABS: Glucose Point of Care 190 mg/dL (70-110)
[2024-08-18] VITALS (7 sets, daily range): BP systolic 97–142; BP diastolic 57–84; PULSE 64–96; RESP 16–25; TEMP 36.4–37.3; O2SAT 93–96; BMI 30.8
[2024-08-18 05:29] LABS: Basophils % 0.5 %; Eosinophils # 0.2 10^3/uL (0.0-0.8); Eosinophils % 2.8 %; Hematocrit 27.4 % (36-47); Lymphocytes # 1.4 10^3/uL (0.8-4.8); Lymphocytes % 18.9 %; Mean Corpuscular HGB Conc 30.3 g/dL (30-55); Mean Corpuscular Hemoglobin 24.3 pg (27-33); Mean Corpuscular Volume 80.1 fl (85-98); Mean Platelet Volume 9.7 fL (7.4-10.4); Monocytes # 0.7 10^3/uL (0.2-0.9); Monocytes % 9.4 %; Neutrophils # 5.13 10^3/uL (1.8-7.7); Neutrophils % 67.4 %; Nucleated Red Blood Cells # 0.1 /100WBC; Nucleated Red Blood Cells % 1.7 %; Platelet Count 179 10^3/cmm (157-399); Red Blood Count 3.42 10^6/uL (3.85-5.65); Red Cell Distribution Width 19.8 % (12.1-15.1); White Blood Count 7.62 10^3/uL (3.29-11.43)
[2024-08-18 05:51] LABS: Albumin Level 2.8 g/dL (3.5-5.2); Anion Gap 14.5 (5-19); Blood Urea Nitrogen 16 mg/dL (8-23); Calcium 7.9 mg/dL (8.5-10.5); Carbon Dioxide 20 mmol/L (22-29); Chloride 112 mmol/L (98-107); Creatinine Clr Calc Pharmacy 49.6148; Glucose 154 mg/dL (65-115); Magnesium 1.7 mg/dL (1.7-2.3); Phosphorus 1.8 mg/dL (2.5-4.5); Potassium 3.5 mmol/L (3.5-5.1); Sodium 143 mmol/L (136-145)
[2024-08-18] MEDS: sucralfate 1 gm/10 mL Oral Liq UDC PO ×2 (06:17→12:25)
[2024-08-18] MEDS: ciprofloxacin 400 MG/200 ML PREMIX 200 MG IV (06:17)
[2024-08-18 07:42] LABS: Glucose Point of Care 152 mg/dL (70-110)
[2024-08-18] MEDS: lidocaine 5% Patch 1 PATCH TOPICAL (08:22)
[2024-08-18] MEDS: atorvastatin 40 mg Tablet PO (08:22)
[2024-08-18] MEDS: sennosides-docusate Tablet 1 TAB PO (08:22)
[2024-08-18] MEDS: gabapentin 300 mg Capsule PO (08:23)
[2024-08-18] MEDS: fluconazole 100 mg Tablet 200 MG PO (08:23)
[2024-08-18] MEDS: ticagrelor 90 mg Tablet PO (08:23)
[2024-08-18] MEDS: phosphorus 250 mg Tablet PO (08:23)
[2024-08-18] MEDS: insulin lispro 100 unit/1 mL SUBCUT ×2 (08:23→12:24)
[2024-08-18] MEDS: pantoprazole 40 mg SDV IVP (08:23)
[2024-08-18] MEDS: acetaminophen 325 mg Tablet 650 MG PO (08:29)
[2024-08-18] MEDS: metoprolol tartrate 25 mg Tablet 12.5 MG PO (08:29)
--- NOTE | 2024-08-18 09:15 | PM.PN ---
Subjective Subjective: Patient reports she had an ok night. Denies chest pain, shortness of breath, fevers or chills. Reports generalized weakness and slight dizziness at times. Discussed hemoglobin stable and plan for continued therapy. Seems to be tolerating Brilinta fine. Discussed plan of care. Medications: Reviewed: Yes Vitals/I&O/Wt Last Vital Signs Temp 99.1 F 08/18/24 08:00 Pulse 82 08/18/24 08:02 Resp 16 08/18/24 08:02 BP 139/71 08/18/24 08:00 Pulse Ox 94 08/18/24 08:02 O2 Del Method Room Air 08/18/24 08:02 O2 Flow Rate 2 08/14/24 23:28 08/17/24 08/18/24 08/18/24 22:59 06:59 14:59 Intake Total 550 / 1600 200 / 200 Output Total 650 / 650 950 / 1600 Balance -100 / 950 -950 / 0 200 / 200 Weight last 48 hrs Weight 79 kg Weight 72.743 kg Physical Exam Narrative: General: Patient is awake and alert. Conversationa. Head: Normocephalic. Atraumatic. EOM intact. Neck: No JVD. Cardiovascular: RRR. No gallops. No murmurs. Lungs: Clear to auscultation, no use of accessory muscles, no crackles or wheezes. Skin: No jaundice. No rashes. Abdomen: Normal bowel sounds, abdomen soft and nontender. Extremities: No cyanosis or clubbing. Musculoskeletal: No swollen or erythematous joints. Neurological: Moves all 4 extremities. No myoclonus. Urinary Catheter Management: [place]: Cath Placed During This Visit: yes Reason for Continuing Indwelling Catheter: Accurate Measurement of Urinary Output in Critically Ill Patients Urinary Catheter Date of Insertion: 08/15/24 Urinary Catheter Time of Insertion: 04:00 Data 08/18/24 05:00 08/18/24 05:00 Micro: Microbiology 08/15/24 04:08 Urine Culture - Preliminary Urine,Clean Catch Yeast species A&P Assessment and plan (1) Melena: Acute blood loss anemia resulting in hemorrhagic shock secondary to acute upper GI bleed Continue IV PPI twice daily, rotate to oral PPI soon Continue liquid Carafate Monitor for rebleeding (2) ST elevation (STEMI) myocardial infarction: Cardiology following, appreciate recommendations Continue Brilinta Continue high intensity statin (3) PAD (peripheral artery disease): Continue statin and antiplatelet (4) Diabetes: SSI (5) UTI (urinary tract infection): Continue abx Continue Diflucan (6) Weakness: Continue therapy, anticipate she will need postacute rehabilitation Plan DVT ppx: SCD Attestations Medical Necessity Statement*: Patient requires ongoing hospitalization for serial labs, IV PPI, IV antibiotics, therapy, and supportive care. Coding Level of Care Code Acute Code for [facility] Diagnoses Melena K92.1 ST elevation (STEMI) myocardial infarction I21.3 PAD (peripheral artery disease) I73.9 Diabetes E11.9 UTI (urinary tract infection) N39.0 Weakness R53.1
--- NOTE | 2024-08-18 10:04 | P.PN_ITS ---
<Statement entered by Rashaad Jensen M.D - 08/18/24 21:41> Patient was cared for in conjunction with an advanced practice practitioner. I personally reviewed the chart and all pertinent data including imaging, telemetry, and laboratory results. I discussed the patient in detail with the advanced practice practitioner. Please see their note for complete progress note, results and agreed upon plan of care for the patient. Subjective 2 Subjective: Patient moved out of ICU to the [facility] floor. She is feeling well this morning. I discussed with her in detail her risks of not taking aspirin or Brilinta. She reports she was afraid last night to take the evening dose of Brilinta for fear of GI bleed. Our plan today is to reduce Brilinta to 60 mg twice daily and observe stools and hemoglobin. She is willing to try it. She did have a black stool this morning. Hemoglobin today 8.3, was 8.6 yesterday. She is receiving Protonix and Carafate. Blood pressure well-controlled. Continue atorvastatin, metoprolol tartrate 12.5 mg twice daily. Vitals/I&O/Wt Last Vital Signs Temp 99.1 F 08/18/24 08:00 Pulse 82 08/18/24 08:02 Resp 16 08/18/24 08:02 BP 139/71 08/18/24 08:00 Pulse Ox 94 08/18/24 08:02 O2 Del Method Room Air 08/18/24 08:02 O2 Flow Rate 2 08/14/24 23:28 08/17/24 08/18/24 08/18/24 22:59 06:59 14:59 Intake Total 550 / 1600 200 / 200 Output Total 650 / 1600 950 / 1600 Balance -100 / 0 -950 / 0 200 / 200 Weight last 48 hrs Weight 174 lb 2.643 oz Weight 160 lb 5.917 oz Physical Exam 2 Const: COMMON NORMALS: no acute distress and patient oriented x3 GENERAL APPEARANCE: cooperative and comfortable ORIENTATION/CONSCIOUSNESS: Yes awake, Yes oriented to person, Yes oriented to place and Yes oriented to time Chest: COMMONS NORMALS: normal inspection of the chest and normal palpation of entire chest wall CHEST: Yes Symmetrical chest wall rise Resp: COMMON NORMALS: normal respiratory effort, No retractions, No use of accessory muscles and clear to auscultation bilaterally EFFORT & INSPECTION: Yes symmetric chest movement AUSCULTATION: clear to auscultation bilaterally Cardio: COMMON NORMALS: regular rate, regular rhythm, S1 normal heart sound present, S2 normal heart sound present, No gallops present (Cardio), No clicks present (Cardio), No murmurs present (Cardio) and No rub (Cardio) RATE: r egular rate RHYTHM: regular rhythm HEART SOUNDS: S1 normal heart sound present and S2 normal heart sound present PERIPHERAL PULSES: radial pulses present Extremity: COMMON NORMALS: no pedal edema Neuro: COMMON NORMALS: patient oriented x3 and moves all extremities S ENSORIUM/ORIENTATION: Yes oriented to person, Yes oriented to place and Yes oriented to time Urinary Catheter Management: [place]: Cath Placed During This Visit: yes Reason for Continuing Indwelling Catheter: Accurate Measurement of Urinary Output in Critically Ill Patients Urinary Catheter Date of Insertion: 08/15/24 Urinary Catheter Time of Insertion: 04:00 Data 08/18/24 05:00 08/18/24 05:00 Micro: Microbiology 08/15/24 04:08 Urine Culture - Preliminary Urine,Clean Catch Yeast species A&P Assessment and plan (1) ST elevation (STEMI) myocardial infarction: (2) PAD (peripheral artery disease): Plan Came in with STEMI on 08/14/2024, coronary angiogram showed patent coronary arteries. Hemoglobin slightly down from yesterday and she did have 1 black stool today. Will give the lower dose of Brilinta 60 mg twice daily and observe hemoglobin. Attestations 2 Medical Necessity Statement*: STEMI, GI bleeding, anemia Coding Level of Care Code Acute Code for [facility] Diagnoses ST elevation (STEMI) myocardial infarction I21.3 PAD (peripheral artery disease) I73.9
--- NOTE | 2024-08-18 10:11 | PM.DCS ---
Discharge Providers Date of Admission: 08/15/24 00:25 Date of Discharge: August 18, 2024 Attending Provider at Admission: Rashaad Jensen M.D Attending Provider at Discharge: Rashaad Jensen M.D Consults: Cardiology General Surgery Primary Care Provider: Jenniffer Jenkins MD Diagnoses at Discharge Discharge Diagnosis (1) ST elevation (STEMI) myocardial infarction: Status: Inactive (2) PAD (peripheral artery disease): Status: Inactive Reason for Visit Reason for Visit: stemi Hospital Course Hospital Course Capri Tobar is a 79-year-old female with a past medical history significant for coronary artery disease, COPD, hyperlipidemia, diabetes mellitus, and multiple other comorbidities who presented after being found down by neighbor. She was initially found to have concern for STEMI for which she underwent coronary angiogram revealing patent left main, LAD, left circumflex and previous RCA stents. She is found to have acute blood loss anemia secondary resulting in hemorrhagic shock requiring Levophed due to acute GI bleed. General surgery consulted and she underwent endoscopy which revealed severe acute localized erosive gastritis without active bleeding. Patient was transfused with 3 packed red blood cells and hemoglobin remained stable postprocedure. She was treated with PPI and Carafate. She is reinitiated on Brilinta without any further evidence of bleeding. She remained hemodynamically stable. She is found to have debility and physical deconditioning for which she worked with physical and occupational therapies. Patient discharged to longterm facility for continued rehabilitation. Physical Exam Narrative: General: Patient is awake and alert. Conversational. Head: Normocephalic. Atraumatic. EOM intact. Neck: No JVD. Cardiovascular: RRR. No gallops. No murmurs. Lungs: Clear to auscultation, no use of accessory muscles, no crackles or wheezes. Skin: No jaundice. No rashes. Abdomen: Normal bowel sounds, abdomen soft and nontender. Extremities: No cyanosis or clubbing. Musculoskeletal: No swollen or erythematous joints. Neurological: Moves all 4 extremities. No myoclonus. Urinary Catheter Management: [place]: Cath Placed During This Visit: yes Reason for Continuing Indwelling Catheter: Accurate Measurement of Urinary Output in Critically Ill Patients Urinary Catheter Date of Insertion: 08/15/24 Urinary Catheter Time of Insertion: 04:00 Discharge Data Studies Completed and Pending Completed Studies During Hospitalization Category Date Time Status CT head wo con* [id number] Stat Cat Scan 08/15/24 00:[address] hip LT wo con* [id number] Stat Cat Scan 08/15/24 00:44 Completed XR chest 1V portable [id number] Stat Exams 08/14/24 23:33 Completed CV echo complete* [id number] Routine Ultrasound 08/15/24 08:09 Completed Pending at discharge Category Date Time Status [employer] request for service Stat Exams 08/14/24 23:33 Taken CBC Auto Diff [Complete Blood Count w/Auto] AM LABS Lab 08/19/24 04:00 Ordered COVID [SARS Covid-2 Antigen] Routine Lab 08/18/24 09:49 Uncollected Magnesium AM LABS Lab 08/19/24 04:00 Ordered Renal Function Panel AM LABS Lab 08/19/24 04:00 Ordered Urine Culture Routine Lab 08/15/24 04:08 Results Pathology: Surgical [PTH] Routine Pth 08/15/24 09:46 Received Radiology Impressions Chest X-Ray 08/14/24 23:33 IMPRESSION: As above. Head CT 08/15/24 00:30 IMPRESSION: Genralized atrophy, No acute intracranial abnormality. Hip CT 08/15/24 00:44 IMPRESSION: No acute fracture identified. Laboratory Results WBC 7.62 10^3/uL (3.29-11.43) 08/18/24 05:00 RBC 3.42 10^6/uL (3.85-5.65) L 08/18/24 05:00 Hgb 8.30 g/dL (11.27-16.99) L 08/18/24 05:00 Hct 27.4 % (36-47) L 08/18/24 05:00 MCV 80.1 fl (85-98) L 08/18/24 05:00 MCH 24.3 pg (27-33) L 08/18/24 05:00 MCHC 30.3 g/dL (30-55) 08/18/24 05:00 RDW 19.8 % (12.1-15.1) H 08/18/24 05:00 Plt Count 179 10^3/cmm (157-399) 08/18/24 05:00 MPV 9.7 fL (7.4-10.4) 08/18/24 05:00 Neut % (Auto) 67.4 % 08/18/24 05:00 Lymph % (Auto) 18.9 % 08/18/24 05:00 [place] % (Auto) 9.4 % 08/18/24 05:00 Eos % (Auto) 2.8 % 08/18/24 05:00 Baso % (Auto) 0.5 % 08/18/24 05:00 Neut # (Auto) 5.13 10^3/uL (1.8-7.7) 08/18/24 05:00 Lymph # (Auto) 1.4 10^3/uL (0.8-4.8) 08/18/24 05:00 [place] # (Auto) 0.7 10^3/uL (0.2-0.9) 08/18/24 05:00 Eos # (Auto) 0.2 10^3/uL (0.0-0.8) 08/18/24 05:00 Baso # (Auto) 0.0 10^3/uL (0.0-0.1) 08/18/24 05:00 Nucleated RBC % (auto) 1.7 % 08/18/24 05:00 Nucleated RBCs # 0.1 /100WBC 08/18/24 05:00 APTT 45.6 SECONDS (23.9-36.7) H D 08/15/24 05:30 Sodium 143 mmol/L (136-145) 08/18/24 05:00 Potassium 3.5 mmol/L (3.5-5.1) 08/18/24 05:00 Chloride 112 mmol/L (98-107) H 08/18/24 05:00 Carbon Dioxide 20 mmol/L (22-29) L 08/18/24 05:00 Anion Gap 14.5 (5-19) 08/18/24 05:00 BUN 16 mg/dL (8-23) 08/18/24 05:00 Creatinine 0.9 mg/dL (0.5-0.9) 08/18/24 05:00 GFR Calculation Not Reportable 08/18/24 05:00 Glucose 154 mg/dL (65-115) H 08/18/24 05:00 POC Glucose 152 mg/dL (70-110) H 08/18/24 07:39 Estimat Average Glucose 120 08/15/24 05:30 Hemoglobin A1c 5.8 % (4.0-6.0) 08/15/24 05:30 Calculated Osmolality 293 mOsm/kg (285-295) 08/17/24 04:28 Calcium 7.9 mg/dL (8.5-10.5) L 08/18/24 05:00 Phosphorus 1.8 mg/dL (2.5-4.5) L 08/18/24 05:00 Magnesium 1.7 mg/dL (1.7-2.3) 08/18/24 05:00 Total Bilirubin 1.1 mg/dL (0.15-1.2) 08/14/24 23:30 AST 47 U/L (0-32) H 08/14/24 23:30 ALT 11 U/L (0-33) 08/14/24 23:30 Alkaline Phosphatase 115 U/L (35-105) H 08/14/24 23:30 Troponin T Baseline 193 ng/L (0-10) H* 08/14/24 23:30 Troponin T 120 Minute 268.9 ng/L (0-10) H 08/15/24 01:18 Delta Troponin T 75.9 ABS# (0-10) H* 08/15/24 01:18 Troponin T Hi Sens 6Hr 454.9 ng/L (0-10) H 08/15/24 05:30 Troponin T Hi Sens 6Hr Delta 261.9 ng/L (0-12) H* 08/15/24 05:30 Total Protein 6.5 g/dL (6.6-8.7) L 08/14/24 23:30 Albumin 2.8 g/dL (3.5-5.2) L 08/18/24 05:00 Globulin 2.9 g/dL (1.3-4.6) 08/14/24 23:30 TSH 1.94 uIU/mL (0.27-4.20) 08/16/24 05:21 Urine Color Yellow (Yellow) 08/15/24 04:08 Urine Appearance Turbid (CLEAR) A 08/15/24 04:08 Urine pH 5.0 (5-7) 08/15/24 04:08 Ur Specific [place] 1.053 (1.005-1.030) H 08/15/24 04:08 Urine Protein 1+ (Negative) A 08/15/24 04:08 Urine Glucose (UA) 3+ (Normal) H 08/15/24 04:08 Urine Ketones 1+ (Negative) H 08/15/24 04:08 Urine Blood 1+ (Negative) A 08/15/24 04:08 Urine Nitrate Negative (Negative) 08/15/24 04:08 Urine Bilirubin Negative (Negative) 08/15/24 04:08 Urine Urobilinogen 1.0 mg/dL (Negative) 08/15/24 04:08 Ur Leukocyte Esterase 2+ (Negative) A 08/15/24 04:08 Urine RBC >100 /hpf (0-2) H 08/15/24 04:08 Urine WBC >100 /hpf (0-5) H 08/15/24 04:08 Ur Squamous Epith Cells 0-5 /hpf (0-5) 08/15/24 04:08 Amorphous Sediment Not Reportable 08/15/24 04:08 Urine Bacteria Exceeds /hpf (NONE) 08/15/24 04:08 Hyaline Casts 36.94 /lpf 08/15/24 04:08 Urine Mucus 2+ /hpf 08/15/24 04:08 Urine Yeast 3+ /hpf H 08/15/24 04:08 Blood Type B Negative 08/15/24 01:18 Rho(D) Type Rh negative 08/15/24 01:18 Antibody Screen Negative 08/15/24 01:18 Crossmatch See Detail 08/15/24 01:18 Vitals Last Vital Signs Temp 99.1 F 08/18/24 08:00 Pulse 82 08/18/24 08:02 Resp 16 08/18/24 08:02 BP 139/71 08/18/24 08:00 Pulse Ox 94 08/18/24 08:02 O2 Del Method Room Air 08/18/24 08:02 O2 Flow Rate 2 08/14/24 23:28 Discharge Plan Discharge Patient Disposition: Xfer SNF Condition: Stable Prescriptions: New fluconazole 100 mg Tablet 200 mg PO DAILY 13 Days Qty: 13 0RF sucralfate 100 mg/mL Suspension 1 g PO AC&BEDTIME 30 Days Qty: 120 0RF Phospha 250 Neutral 250 mg Tablet 1 tab PO BID 7 Days Qty: 14 0RF Continued acetaminophen [Tylenol Arthritis Pain] 650 mg tablet extended release 1,300 mg PO BID allopurinol 100 mg tablet 100 mg PO BEDTIME amitriptyline 25 mg tablet 25 mg PO BEDTIME nitroglycerin [Nitrostat] 0.4 mg tablet, sublingual 0.4 mg sublingual Q5M PRN (Reason: chest pain) Qty: 25 4RF Rx Instructions: DO NOT EXCEED 3 DOSES PER EPISODE metoprolol tartrate 25 mg tablet 25 mg PO BID@0900,2100 Qty: 120 3RF atorvastatin 80 mg tablet 80 mg PO BEDTIME Qty: 90 3RF ticagrelor 60 mg tablet 60 mg PO BID Qty: 180 1RF gabapentin 300 mg capsule 300 mg PO TID albuterol sulfate 90 mcg/actuation HFA aerosol inhaler 2 inh INHALATION Q4H PRN (Reason: shortness of breath or wheezing) Qty: 6.7 1RF levothyroxine 75 mcg tablet 75 mcg PO DAILY insulin glargine [Lantus Solostar U-100 Insulin] 100 unit/mL (3 mL) insulin pen 25 unit SUBCUT DAILY baclofen 5 mg tablet 5 mg PO TID Changed pantoprazole 40 mg tablet,delayed release (DR/EC) 40 mg PO BID 90 Days Qty: 180 0RF Held Jardiance 25 mg tablet 25 mg PO DAILY Hold Instructions: Resume on 08/31/24. Hold due to UTI. Discharge Orders: Discharge Order (Routine); Ordered 08/18/24 Ordered By: Chris Salgado Other Ambulatory Orders: DME: Gurjit (Order) Location: None Selected Ordered By: Rashaad Jensen Referrals: Jenniffer Jenkins MD [Primary Care Provider] - Discharge Diet: Advance as tolerated and Usual diet Discharge Activity: Resume usual activity and Increase activity as tolerated Patient Instructions: Ciprofloxacin (By mouth), Sucralfate (By mouth), Fluconazole (By mouth), GI Post Discharge Instructions w/ Anesthesia Activity Restrictions/Additional Instructions: 1. Take medications as prescribed. 2. Monitor for symptoms of recurrent GI bleeding. 3. Follow-up with providers at rehab facility within 7 days. 4. Increase activity as tolerated with assistance. Discharge Attestations Time Spent in Discharge Care*: greater than 30 min Quality Metrics Clinical Quality Measures [ No reported AMI, CVA or VTE this stay] Coding Level of Care Code Acute Code for [facility] Diagnoses ST elevation (STEMI) myocardial infarction I21.3 PAD (peripheral artery disease) I73.9
[2024-08-18 11:04] LABS: SARS Covid-2 Antigen negative (Negative)
[2024-08-18 11:33] LABS: Glucose Point of Care 167 mg/dL (70-110)
--- NOTE | 2024-08-18 11:55 | PC.NURSE ---
Report called to AIDE Schrader at [facility].
--- NOTE | 2024-08-18 12:08 | PC.SOCIAL ---
IMM Update pg 2 of IMM Updated and reviewed w/ patient. Copy provided and copy dated, initialed and placed in chart.
--- NOTE | 2024-08-18 12:10 | PC.OT ---
OT TREATMENT HELD DUE TO SCHEDULED PATIENT D/C TODAY
--- NOTE | 2024-08-18 15:59 | PC.SOCIAL ---
IMM updated IMM dated and initialed and placed in chart and copy given to patient
--- OUTSIDE RECORDS SUMMARY | 2024-08-22 05:39 | XMS_ITS | Clinical Summary ---
Author Organization [facility] Address [address] [place] [address] Phone Care Team Providers Care Ready To W[employer] Department Manager Name Role Phone Jenniffer Jenkins MD Primary Care Provider [phone] Allergies Active Allergy Reactions Criticality Noted Date Comments Codeine Headache Low 11/09/2012 Tetanus Toxoid Confusion Low 11/09/2012 Medications lisinopril (PRINIVIL) 10 mg Oral tablet Take 10 mg by mouth daily. Active omeprazole (PRILOSEC) 20 mg Oral CpDR Take 20 mg by mouth 2 times daily. Active loratadine (CLARITIN) 10 mg Oral tablet Take 10 mg by mouth daily. Active aspirin (IKE) 81 mg Oral Tab Take 1 Tab by mouth daily. 30 Tab 1 3 Active amLODIPine (NORVASC) 5 mg Oral tablet Take 1 Tab by mouth daily. 30 Tab 1 3 Active amitriptyline (ELAVIL) 25 mg Oral tablet Take 1 Tab by mouth daily at bedtime. 30 Tab 1 3 Active metFORMIN (GLUCOPHAGE) 500 mg Oral tablet Take 500 mg by mouth 3 times daily with meals. Active fluticasone-sven meterol (ADVAIR DISKUS) 250-50 mcg/dose Inhalation DsDv Take 1 Puff by inhalation 2 times daily. Active tiotropium (SPIRIVA) 18 mcg Inhalation capsule Take 18 mcg by inhalation daily. Active Active Problems Problem Noted Date Diagnosed Date Rectal bleeding 05/02/2013 Melena 05/02/2013 Epigastric pain 05/02/2013 Diverticulosis 11/12/2012 Anemia 11/12/2012 Supratherapeutic INR 11/12/2012 GI bleed 11/09/2012 Tachycardia 11/09/2012 Hypotension 11/09/2012 Immunizations Immunization Administration Dates Next Due (PREVNAR 13)(6 WKS UP) PNEUM OCOCCAL CONJUGATE (PCV13) 0.5 ML, IM 07/19/2009 Influenza Seasonal Unspecified Formulation IM ,03/19/2012 Social History Tobacco Use Types Packs/Day Years Used Date Smoking Tobacco: Former Cigarettes 2 15 0 07/19/1995 - 07/19/2010 Smokeless Tobacco: Never Alcohol Use Standard Drinks/Week Comments No 0 (1 standard drink = 0.6 oz pur e alcohol) Comments Unknown Sex and Gender Information Value Date Recorded Sex Assigned at Not on file Legal Sex Female 4:41 PM CDT Gender Identity Not on file Sexual Orientation Not on file Occupation Industry Job Start Date Job End Date Not on file Not on file Not on file Not on file Last Filed Vital Signs Vital Sign Reading Time Taken Comments Blood Pressure 122/66 05/03/2013 8:36 AM CDT Pulse 78 05/03/2013 8:36 AM CDT Temperature 36.4 ??C (97.5 ??F) 05/03/2013 8:36 AM CD T Respiratory Rate 18 05/03/2013 8:36 AM CDT Oxygen Saturation 100% 05/03/2013 8:36 AM CDT Inhaled Oxygen Concentration - - Weight 91 kg (200 lb 9.6 oz) 05/03/2013 4:43 AM CDT Height 160 cm (5' 3 ) 05/02/2013 12:42 AM CDT Body Mass Index 35.53 05/02/2013 12:42 AM CDT Plan of Treatment Health Maintenance Due Date Last Done Comments DTAP/TDAP/TD VACCINES (1 - Tdap) 1963 ZOSTER VACCINE (1 of 2) 1994 OSTEOPOROSIS SCREENING 2009 PNEUMOCOCCAL VACCINE 65+ YEA RS (2 of 2 - PPSV23) 07/19/2010 07/19/2009 RSV VACCINE (60+ or ) (1 - 1-dose 75+ series) 2019 INFLUENZA VACCINE (#1) 2024 04/19/2013, 2011 COLORECTAL SCREENING Discontinued 11/10/2012 Colorectal Cancer Screening Discontinued FIT-DNA Q 3 years Discontinued FIT/FOBT Q 1 year Discontinued Flex Sig/CT Colonography Q 5 years Discontinued Insurance MEDICARE PART A AND B Advance Directives For more information, please contact: [phone] * Full Code (Latest Code Status on File) Date Activated Date Inactivated Comments 05/02/2013 1:14 AM 05/03/2013 12:51 PM * Full Code Date Activated Date Inactivated Comments 11/09/2012 6:47 PM 11/12/2012 1:28 PM Care Teams Ready To W[employer] Department Manager Relationship Specialty Start Date End Date Jenniffer Jenkins MD [address] [place] [address] PCP - General Internal Medicine 11/09/12
--- OUTSIDE RECORDS SUMMARY | 2024-08-22 05:39 | XMS_ITS ---
Author Organization Unknown ALLERGIES AND ADVERSE REACTIONS No information ASSESSMENT No information CHIEF COMPLAINT No information MEDICATIONS No information OBJECTIVE DATA No information PHYSICAL EXAMINATION No information TREATMENT PLAN Planned Care Start Date Provider Encounter for Check-up [id number] [facility] PROBLEMS No information RESULTS No information REVIEW OF SYSTEMS No information SUBJECTIVE DATA No information VITAL SIGNS No information
--- OUTSIDE RECORDS SUMMARY | 2024-08-22 05:39 | XMS_ITS ---
Laboratory report Created on: August 06, 2024 SUMAYA ROBINS : 1945 Sex: Female Author Name MARVIN GONZALES Organization Unknown PROBLEMS Problems List Code Description E11.51 E78.5 RESULTS Laboratory Orders Date Order Code Test 2024-07-06 934638 LIPID PANEL W/ C HOL/HDL RATIO 2024-07-06 [id number] ALBUMIN/CREATINI NE RATIO,URINE 2024-07-06 [id number] CBC WITH DIFFERE NTIAL/PLATELET 2024-07-06 [id number] COMP. METABOLIC PANEL (14) 2024-07-06 [id number] HEMOGLOBIN A1C Laboratory Results Date LOINC Test Value Unit Reference Range Interpre tation 2024-07-06 2093-3 CHOLESTEROL, TOTAL 87 MG/DL 100-199 L 2024-07-06 2571-8 TRIGLYCERIDES 102 MG/DL 0-149 2024-07-06 2085-9 HDL CHOLESTEROL 33 MG/DL >39 L 2024-07-06 65400-6 VLDL CHOLESTEROL NICO 19 MG/DL 5-40 2024-07-06 48234-0 LDL CHOL CALC ([facility]) 35 MG/DL 0-99 2024-07-06 9830-1 T CHOL/HDL RATIO 2.6 RATIO 0.0-4.4 2024-07-06 2161-8 CREATININE, URINE 69.8 MG/DL 2024-07-06 32255-8 ALBUMIN, URINE 7.4 UG/ML 2024-07-06 9318-7 ALB/CREAT RATIO 11 MG/G CREAT 0-29 2024-07-06 6690-2 WBC 10.2 X10E3/UL 3.4-10.8 2024-07-06 789-8 RBC 5.12 X10E6/UL 3.77-5.28 2024-07-06 718-7 HEMOGLOBIN 10.8 G/DL 11.1-15.9 L 2024-07-06 4544-3 HEMATOCRIT 37.3 % 34.0-46.6 2024-07-06 787-2 MCV 73 FL 79-97 L 2024-07-06 785-6 MCH 21.1 PG 26.6-33.0 L 2024-07-06 786-4 MCHC 29 G/DL 31.5-35.7 L 2024-07-06 788-0 RDW 18.4 % 11.7-15.4 H 2024-07-06 777-3 PLATELETS 334 X10E3/UL 289-836 4225-12-19 770-8 NEUTROPHILS 58 % 2024-07-06 736-9 LYMPHS 27 % 2024-07-06 5905-5 MONOCYTES 9 % 2024-07-06 713-8 EOS 5 % 2024-07-06 706-2 BASOS 1 % 2024-07-06 751-8 NEUTROPHILS (ABSOLUTE) 5.9 X10E3/UL 1.4-7.0 2024-07-06 731-0 LYMPHS (ABSOLUTE) 2.7 X10E3/UL 0.7-3.1 2024-07-06 742-7 MONOCYTES(ABSOLUTE) .9 X10E3/UL 0.1-0.9 2024-07-06 711-2 EOS (ABSOLUTE) .6 X10E3/UL 0.0-0.4 H 2024-07-06 704-7 BASO (ABSOLUTE) .1 X10E3/UL 0.0-0.2 2024-07-06 83656-0 IMMATURE GRANULOCYTES 0 % 2024-07-06 98087-3 IMMATURE GRANS (ABS) 0 X10E3/UL 0.0-0.1 2024-07-06 2345-7 GLUCOSE 168 MG/DL 70-99 H 2024-07-06 3094-0 BUN 19 MG/DL 8-27 2024-07-06 2160-0 CREATININE 1.1 MG/DL 0.57-1.00 H 2024-07-06 58905-7 EGFR 51 ML/MIN/1.73 >59 L 2024-07-06 3097-3 BUN/CREATININE RATIO 17 07-152024-07-06 2951-2 SODIUM 143 MMOL/L 434-718 9905-12-19 2823-3 POTASSIUM 4.4 MMOL/L 3.5-5.2 2024-07-06 2075-0 CHLORIDE 107 MMOL/L 96-106 H 2024-07-06 2028-9 CARBON DIOXIDE, TOTAL 21 MMOL/L 20-29 2024-07-06 39357-9 CALCIUM 8.9 MG/DL 8.7-10.3 2024-07-06 2885-2 PROTEIN, TOTAL 7.1 G/DL 6.0-8.5 2024-07-06 1751-7 ALBUMIN 3.9 G/DL 3.8-4.8 2024-07-06 70859-0 GLOBULIN, TOTAL 3.2 G/DL 1.5-4.5 2024-07-06 1975-2 BILIRUBIN, TOTAL .7 MG/DL 0.0-1.2 2024-07-06 6768-6 ALKALINE PHOSPHATASE 109 IU/L 44-121 2024-07-06 1920-8 AST (SGOT) 28 IU/L 0-40 2024-07-06 1742-6 ALT (SGPT) 12 IU/L 0-32 2024-07-06 4548-4 HEMOGLOBIN A1C 7.6 % 4.8-5.6 H
== END 2024-08-18 13:09 | disposition skilled nursing facility (03) | DRG 280 ==
LOC: ER 23:38 → CDL 23:39 → ICU 08-15 05:13 → MEDSURG 08-18 08:56
PROVIDERS: Internal Medicine; Nurse Practitioner Family; Surgery; Admitting Provider Internal Medicine; Emergency Provider Emergency Medicine; PCP Internal Medicine; Visit Provider Internal Medicine
PROC: 4A023N7 Measurement of Cardiac Sampling and Pressure, Left Heart, Percutaneous Approach (ICD-10-PCS; principal; 2024-08-14 23:30)
PROC: 0DJ08ZZ Inspection of Upper Intestinal Tract, Via Natural or Artificial Opening Endoscopic (ICD-10-PCS; principal; 2024-08-15 12:15)
DX: I21.19 ST elevation (STEMI) myocardial infarction involving other coronary artery of inferior wall (principal); K29.61 Other gastritis with bleeding; R57.8 Other shock; D62 Acute posthemorrhagic anemia; N39.0 Urinary tract infection, site not specified; E11.51 Type 2 diabetes mellitus with diabetic peripheral angiopathy without gangrene; Z79.84 Long term (current) use of oral hypoglycemic drugs; Z79.4 Long term (current) use of insulin; I25.10 Atherosclerotic heart disease of native coronary artery without angina pectoris; J44.9 Chronic obstructive pulmonary disease, unspecified; E78.5 Hyperlipidemia, unspecified; T68.XXXA Hypothermia, initial encounter; I10 Essential (primary) hypertension; M25.552 Pain in left hip; Z87.891 Personal history of nicotine dependence; I25.2 Old myocardial infarction; Z95.5 Presence of coronary angioplasty implant and graft; Z79.02 Long term (current) use of antithrombotics/antiplatelets; X31.XXXA Exposure to excessive natural cold, initial encounter
CPT/HCPCS: 36415; 36416; 36430; 43239; 51702; 70450; 71045; 73700; 80048; 80053; 80069; 81001; 82274; 82962; 83036; 83735; 84100; 84443; 84484; 85014; 85018; 85025; 85730; 86850; 86900; 86920; 87086; 87106; 87426; 88305; 88342; 93005; 93306; 93458; 96372; 96374; 96376; 97110; 97116; 97162; 97165; 97530; 99152; 99285; C1769; C1887; C1894; J0696; J0744; J1644; J1815; J2250; J2270; J2470; J2704; J3010; J7030; P9016; Q9967

== ENCOUNTER 2024-08-24 18:38 | Emergency (ER) | payer MEDICARE, SELFPAY ==
[2024-08-24] VITALS (11 sets, daily range): BP systolic 102–138; BP diastolic 53–79; PULSE 72–94; RESP 15–20; TEMP 36.6–36.8; O2SAT 90–93; BMI 30.4
--- NOTE | 2024-08-24 18:44 | W.ED.GENADLT ---
HPI - General Adult General: Chief complaint: Recheck/Abnormal Lab/Rx Stated complaint: hemoglobin 6.5 Time Seen by Provider: 08/24/24 18:38 History of Present Illness: Patient brought in today in the long term with complaints of a hemoglobin of 6.5 today when they checked it. She was sent here for transfusion. Patient was here couple weeks ago for a STEMI and was found to be very anemic then requiring a blood transfusion. Patient was then placed on Brilinta. Patient is now complaining of bright red blood and dark tarry stools. She also been more fatigued and more short of breath than than usual. She had an EGD during that time which showed some minor ulcerations a thought is where the bleeding was coming from, the place the patient on Protonix 40 twice daily and Carafate 1 g 4 times daily Related Data Home Medications ?Medication ?Instructions ?Recorded ?Confirmed allopurinol 100 mg tablet 100 mg PO BEDTIME 09/08/19 08/24/24 amitriptyline 25 mg tablet 25 mg PO BEDTIME 09/08/19 08/24/24 acetaminophen 650 mg 1,300 mg PO BID Pain 07/30/20 08/24/24 tablet,extended release (Tylenol Arthritis Pain) gabapentin 300 mg capsule 300 mg PO TID 05/23/21 08/24/24 insulin glargine 100 unit/mL (3 25 unit SUBCUT DAILY 07/12/24 08/24/24 mL) subcutaneous pen (Lantus Solostar U-100 Insulin) levothyroxine 75 mcg tablet 75 mcg PO DAILY 07/12/24 08/24/24 baclofen 5 mg tablet 5 mg PO TID 08/15/24 08/24/24 empagliflozin 25 mg tablet 25 mg PO DAILY 08/15/24 08/24/24 (Jardiance) Held on 08/18/24. Instructions: Resume on 08/31/24. Hold due to UTI. Lactobacillus rhamnosus GG 10 1 cap PO DAILY 08/24/24 08/24/24 billion cell capsule (Culturelle) Previous Rx's ?Medication ?Instructions ?Recorded nitroglycerin 0.4 mg sublingual 0.4 mg sublingual Q5M PRN chest 04/28/21 tablet (Nitrostat) pain #25 tabs metoprolol tartrate 25 mg tablet 25 mg PO BID@0900,2100 #120 tabs 11/27/22 atorvastatin 80 mg tablet 80 mg PO BEDTIME #90 tabs 11/10/23 albuterol sulfate 90 mcg/actuation 2 inh inhalation Q4H PRN shortness 05/21/24 aerosol inhaler of breath or wheezing #6.7 grams ticagrelor 60 mg tablet 60 mg PO BID #180 tabs 08/17/24 fluconazole 100 mg tablet 200 mg (2 x 100 mg) PO DAILY 13 08/18/24 days #13 tabs pantoprazole 40 mg tablet,delayed 40 mg PO BID 90 days #180 tabs 08/18/24 release sodium di- and 1 tab PO BID 7 days #14 tabs 08/18/24 monophosphate-potassium phos monobasic 250 mg tablet (Phospha Neutral) sucralfate 100 mg/mL oral 1 g (10 mL) PO AC&BEDTIME 30 days 08/18/24 suspension #120 mL Allergies Allergy/AdvReac Type Severity Reaction Status Date / Time codeine Allergy Unknown Unknown Verified 08/24/24 15:54 tetanus and diphtheria Allergy Unknown Verified 08/24/24 15:54 toxoids Tetanus Vaccines and Toxoid Allergy Unknown Verified 08/24/24 15:54 Review of Systems General: Reports: 10 or more systems reviewed and unremarkable except in HPI and below 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 x2 during hospitalization with likely mechanism of plavix resistance ST elevation myocardial infarction (STEMI) History of UT (myocardial infarction) Coronary artery disease PAD (peripheral artery disease) HTN (hypertension) Surgical History H/O esophagogastroduodenoscopy (12/19/20) Gastric erosions Status post colonoscopy (12/19/20) Extensive diverticulosis H/O section S/P breast biopsy S/P PTCA (percutaneous transluminal coronary angioplasty) S/P appendectomy History of cholecystectomy S/P femoral-popliteal bypass surgery Family History Other CAD (coronary artery disease) Cancer Diabetes Hypertension Stroke Social History Smoking and tobacco/nicotine status: former use of tobacco/nicotine Quit status (tobacco/nicotine): has quit using Year quit tobacco: 2016 Alcohol intake: never Substance/Drug Use: never Physical Exam Const: COMMON NORMALS: no acute distress, average body habitus, patient oriented x3, no limitations, healthy appearing, alert and well nourished HENMT: COMMON NORMALS: normocephalic, atraumatic, hearing grossly normal bilaterally, external ears normal and Normal external nose present HEAD & SCALP: normocephalic and atraumatic NOSE: Normal external nose present EXTERNAL EAR: Yes external ears normal Neck/C-Spine: COMMON NORMALS: full ROM, no lymphadenopathy, supple, no meningeal signs, no JVD and Thyroid normal THYROID: Thyroid normal Chest: COMMONS NORMALS: normal inspection of the chest and normal palpation of entire chest wall Resp: COMMON NORMALS: normal respiratory effort, No retractions, No use of accessory muscles and clear to auscultation bilaterally AUSCULTATION: clear to auscultation bilaterally Cardio: COMMON NORMALS: no JVD, regular rate, regular rhythm, S1 normal heart sound present, S2 normal heart sound present, No gallops present (Cardio), No clicks present (Cardio), No murmurs present (Cardio) and No rub (Cardio) RATE: regular rate RHYTHM: regular rhythm HEART SOUNDS: S1 normal heart sound present and S2 normal heart sound present GI: COMMON NORMALS: Normal to inspection, nondistended, normoactive bowel sounds present, Soft to palpation, non-tender, No hepatosplenomegaly present and no masses PALPATION: Yes Soft to palpation and Yes No hepatosplenomegaly present Neuro: COMMON NORMALS: patient oriented x3 SENSORIUM/ORIENTATION: Yes alert MENINGEAL SIGNS: Yes no meningeal signs Course Vital Signs: Vital signs: Vital Signs Temperature 98.2 F 08/25/24 00:30 Pulse Rate 75 08/25/24 00:30 Respiratory Rate 16 08/25/24 00:30 Blood Pressure 130/70 08/25/24 00:30 Pulse Oximetry 93 08/25/24 00:30 Oxygen Delivery Me thod Room Air 08/24/24 18:47 MDM - General Adult Medical Decision Making CT scan of abdomen pelvis with contrast was negative. Patient received 2 units of packed red cells. Patient will be referred to GI for colonoscopy. Medical Records I reviewed the patient's medical records. Lab Data I reviewed the patient's lab results. Radiology Impressions Abdomen/Pelvis CT 08/24/24 20:16 IMPRESSION: 1. No bowel obstruction or inflammatory process associated with the bowel. 2. No free air or significant free fluid in the abdomen or pelvis. 3. No evidence of appendicitis. Laboratory Results PT 14.20 SECONDS (12.1-14.9) 08/24/24 19:20 INR 1.03 (0.8-1.2) 08/24/24 19:20 Blood Type B Negative 08/24/24 19:20 Rho(D) Type Rh negative 08/24/24 19:20 Antibody Screen Negative 08/24/24 19:20 Crossmatch See Detail 08/24/24 19:20 All radiology interpretation(s) finalized by discharge Discharge Plan Discharge Patient Disposition: Home Clinical Impression: Acute GI bleeding Anemia Qualifiers: Iron deficiency anemia type: chronic blood loss Condition: Stable Prescriptions: No Action acetaminophen [Tylenol Arthritis Pain] 650 mg tablet extended release 1,300 mg PO BID allopurinol 100 mg tablet 100 mg PO BEDTIME amitriptyline 25 mg tablet 25 mg PO BEDTIME Culturelle 10 billion cell capsule 1 cap PO DAILY nitroglycerin [Nitrostat] 0.4 mg tablet, sublingual 0.4 mg sublingual Q5M PRN (Reason: chest pain) Qty: 25 4RF Rx Instructions: DO NOT EXCEED 3 DOSES PER EPISODE metoprolol tartrate 25 mg tablet 25 mg PO BID@0900,2100 Qty: 120 3RF atorvastatin 80 mg tablet 80 mg PO BEDTIME Qty: 90 3RF ticagrelor 60 mg tablet 60 mg PO BID Qty: 180 1RF gabapentin 300 mg capsule 300 mg PO TID albuterol sulfate 90 mcg/actuation HFA aerosol inhaler 2 inh INHALATION Q4H PRN (Reason: shortness of breath or wheezing) Qty: 6.7 1RF levothyroxine 75 mcg tablet 75 mcg PO DAILY insulin glargine [Lantus Solostar U-100 Insulin] 100 unit/mL (3 mL) insulin pen 25 unit SUBCUT DAILY Jardiance 25 mg tablet 25 mg PO DAILY baclofen 5 mg tablet 5 mg PO TID fluconazole 100 mg Tablet 200 mg PO DAILY 13 Days Qty: 13 0RF sucralfate 100 mg/mL Suspension 1 g PO AC&BEDTIME 30 Days Qty: 120 0RF Phospha 250 Neutral 250 mg Tablet 1 tab PO BID 7 Days Qty: 14 0RF pantoprazole 40 mg tablet,delayed release (DR/EC) 40 mg PO BID 90 Days Qty: 180 0RF Discharge Orders: Discharge ED (Routine); Ordered 08/25/24 Ordered By: Jaron Yeboah Referrals: Jenniffer Jenkins MD [Primary Care Provider] - 1 week Patient Instructions: GI Bleeding, Blood Transfusion Activity Restrictions/Additional Instructions: You are transfused 2 units of blood. You are also referred to general surgery for colonoscopy to try to figure out where this blood is coming from. Our online program coordinator should be calling you for seeing during business hours to arrange this appointment. Your CT scan of your abdomen pelvis was negative. Please follow-up with your family physician within the next 7 days for further evaluation and treatment. If you get lightheaded dizzy felt you are going to pass out increasing fatigue or tiredness please feel free to return to the ER for recheck of your hemoglobin. Print Language: [place] Island[place] Coding Level of Care Code ED Administrative Coordinator for Param Carpio
[2024-08-24 19:49] LABS: INR 1.03 (0.8-1.2)
--- NOTE | 2024-08-24 20:16 | CTR_ITS ---
PROCEDURE INFORMATION: Exam: CT Abdomen And Pelvis With Contrast Exam date and time: 08/24/2024 8:26 PM Age: 79 years old Clinical indication: Other: Low hgb; Prior surgery; Surgery date: 6+ months; Additional info: Gi bleed TECHNIQUE: Imaging protocol: Computed tomography of the abdomen and pelvis with contrast. Radiation optimization: All CT scans at this facility use at least one of these dose optimization techniques: automated exposure control; mA and/or kV adjustment per patient size (includes targeted exams where dose is matched to clinical indication); or iterative reconstruction. Contrast material: OMNIPAQUE 350; Contrast volume: 100 ml; Contrast route: INTRAVENOUS (IV); COMPARISON: CT chest abdpel w/*[id number] 07/12/2024 3:58 PM RADIATION DOSE METRICS: Total DLP (mGy-cm): 748.13 FINDINGS: Coronary arteries: Coronary arterial atherosclerotic calcifications are present. Liver: Normal. No mass. Gallbladder and biliary ducts: The gallbladder is absent. Pancreas: Normal. No ductal dilation. Spleen: Normal. No splenomegaly. Adrenal glands: Normal. No mass. Kidneys and ureters: Normal. No hydronephrosis. Stomach and bowel: Duodenal diverticulum at the level of the pancreatic head. Appendix: The appendix is not visualized but there are no secondary signs of acute appendicitis. Intraperitoneal space: Unremarkable. No free air. No significant fluid collection. Vasculature: Fem-fem bypass graft appears occluded. Severe atherosclerotic disease of the abdominal aorta iliac arteries. Lymph nodes: Unremarkable. No enlarged lymph nodes. Urinary bladder: Unremarkable as visualized. Reproductive: Unremarkable as visualized. Bones/joints: Severe degenerative disc disease at L2-L3 and L5-S1. Soft tissues: Unremarkable. CT/CT abdomen pelvis w con* [id number] IMPRESSION: 1. No bowel obstruction or inflammatory process associated with the bowel. 2. No free air or significant free fluid in the abdomen or pelvis. 3. No evidence of appendicitis.
[2024-08-24] MEDS: iohexol 350 mg/mL 500 mL Btl (per mL) IV (20:34)
[2024-08-24] MEDS: sodium chloride 0.9% 100 mL Bag 50 ML IV (23:38)
[2024-08-25] VITALS (13 sets, daily range): BP systolic 124–154; BP diastolic 50–89; PULSE 69–93; RESP 15–16; TEMP 36.4–36.8; O2SAT 90–94
[2024-08-25] MEDS: sodium chloride 0.9% 100 mL Bag 50 ML IV (01:02)
--- NOTE | 2024-08-25 08:54 | DCPLANNER ---
messaged gen surg for er f/u
== END 2024-08-25 03:37 | disposition home or self-care (01) ==
PROVIDERS: Emergency Provider Emergency Medicine; PCP Internal Medicine
DX: K92.2 Gastrointestinal hemorrhage, unspecified (principal); D64.9 Anemia, unspecified; Z79.4 Long term (current) use of insulin; Z87.891 Personal history of nicotine dependence; I25.10 Atherosclerotic heart disease of native coronary artery without angina pectoris; I10 Essential (primary) hypertension; E11.9 Type 2 diabetes mellitus without complications
CPT/HCPCS: 36415; 36430; 74177; 80048; 83880; 85025; 85610; 86850; 86900; 86920; 99214; 99285; P9016

== ENCOUNTER → 2024-08-31 13:25 | Outpatient (BNVA) | payer MEDICARE, SELFPAY | PROVIDERS: PCP Internal Medicine; Visit Provider Surgery | DX: Z09 Encounter for follow-up examination after completed treatment for conditions other than malignant neoplasm (principal); K92.2 Gastrointestinal hemorrhage, unspecified; I21.3 ST elevation (STEMI) myocardial infarction of unspecified site | CPT/HCPCS: 99204 ==

== ENCOUNTER → 2024-09-01 10:33 | Outpatient (BNVA) | payer MEDICARE, SELFPAY | PROVIDERS: PCP Internal Medicine; Visit Provider Nurse Practitioner Family | DX: I25.2 Old myocardial infarction (principal); D64.9 Anemia, unspecified; I25.10 Atherosclerotic heart disease of native coronary artery without angina pectoris; I10 Essential (primary) hypertension; Z87.891 Personal history of nicotine dependence | CPT/HCPCS: 99214 ==

== ENCOUNTER 2024-09-04 06:44 | Inpatient (IN) | payer MEDICARE, SELFPAY ==
[2024-09-04] VITALS (19 sets, daily range): BP systolic 98–153; BP diastolic 44–79; PULSE 74–105; RESP 16–23; TEMP 36.7–36.9; O2SAT 93–98; BMI 30.1
--- NOTE | 2024-09-04 06:49 | XRR_ITS ---
PROCEDURE INFORMATION: Exam: XR Chest Exam date and time: 09/04/2024 6:52 AM Age: 79 years old Clinical indication: Cough and dyspnea; Additional info: Dyspnea/cough TECHNIQUE: Imaging protocol: Radiologic exam of the chest. Views: 1 view. COMPARISON: CR (CHEST, ) 08/14/2024 11:33 PM FINDINGS: Lungs: Bibasilar hypoventilatory changes. Mild diffuse interstitial prominence. Pleural spaces: Unremarkable. No pleural effusion. No pneumothorax. Heart/Mediastinum: See Vasculature finding. Vasculature: Mild cardiomegaly and uncoiling of the thoracic aorta. Bones/joints: Unremarkable. XR/XR chest 1V portable [id number] IMPRESSION: 1. Mild diffuse interstitial prominence. 2. Poor inspiratory effort.
--- NOTE | 2024-09-04 06:49 | ECG_ITS ---
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 Measurements Intervals [place] Rate: 102 P: 46 CA: 127 QRS: 52 QRSD: 82 T: -76 QT: 378 QTc: 494 Interpretive Statements SINUS TACHYCARDIA LOW QRS VOLTAGE IN PRECORDIAL LEADS [QRS DEFLECTION < 1.0 mV IN CHEST LEADS] ST DEVIATION AND MODERATE T-WAVE ABNORMALITY, CONSIDER ANTEROLATERAL ISCHEMIA [-0.1+ mV T-WAVE IN V3-V6] ST DEVIATION AND MODERATE T-WAVE ABNORMALITY, CONSIDER INFERIOR ISCHEMIA [-0.1+ mV T-WAVE IN II/aVF] Compared to ECG 08/15/2024 05:49:21 T-wave abnormality now present Possible ischemia now present Sinus rhythm no longer present Electronically Signed On 09-04-2024 11:23:05 SPRING FORMER by Meliton Ballard M.D. [email or web address]
[2024-09-04 07:04] LABS: Basophils # 0.1 10^3/uL (0.0-0.1); Eosinophils # 0.1 10^3/uL (0.0-0.8); Eosinophils % 1.6 %; Hematocrit 33.9 % (36-47); Lymphocytes # 1.3 10^3/uL (0.8-4.8); Lymphocytes % 16.2 %; Mean Corpuscular HGB Conc 29.2 g/dL (30-55); Mean Corpuscular Volume 82.1 fl (85-98); Mean Platelet Volume 9.7 fL (7.4-10.4); Monocytes # 0.8 10^3/uL (0.2-0.9); Monocytes % 9.7 %; Neutrophils # 5.88 10^3/uL (1.8-7.7); Neutrophils % 70.9 %; Nucleated Red Blood Cells # 0.1 /100WBC; Nucleated Red Blood Cells % 0.6 %; Platelet Count 415 10^3/cmm (157-399); Red Blood Count 4.13 10^6/uL (3.85-5.65); Red Cell Distribution Width 18.7 % (12.1-15.1); White Blood Count 8.28 10^3/uL (3.29-11.43)
--- NOTE | 2024-09-04 07:05 | W.ED.CHESTPA ---
HPI - Chest Pain General: Chief Complaint: Chest Pain Stated Complaint: SOB/CP Time Seen by Provider: 09/04/24 06:48 History of Present Illness: 79-year-old female who presents to the emergency room with shortness of breath chest discomfort that she says began yesterday. Patient has a recent hospitalization for upper GI bleed and a 4 history of myocardial infarction. She has had vomiting since yesterday states she was up all night she denies any hematemesis or coffee-ground emesis no hematochezia or melena. She was given Zofran and nitro and route. She focuses more on her nausea and abdominal discomfort no. She has some lower chest discomfort without radiation. Associated symptoms: Reports dyspnea; Deny abdominal pain or fever(s) Related Data Home Medications ?Medication ?Instructions ?Recorded ?Confirmed allopurinol 100 mg tablet 100 mg PO BEDTIME 09/08/19 09/04/24 amitriptyline 25 mg tablet 25 mg PO BEDTIME 09/08/19 09/04/24 acetaminophen 650 mg 1,300 mg PO BID Pain 07/30/20 09/04/24 tablet,extended release (Tylenol Arthritis Pain) gabapentin 300 mg capsule 300 mg PO TID 05/23/21 09/04/24 insulin glargine 100 unit/mL (3 25 unit SUBCUT DAILY 07/12/24 09/04/24 mL) subcutaneous pen (Lantus Solostar U-100 Insulin) levothyroxine 75 mcg tablet 75 mcg PO DAILY 07/12/24 09/04/24 empagliflozin 25 mg tablet 25 mg PO DAILY 08/15/24 09/04/24 (Jardiance) Held on 08/18/24. Instructions: Resume on 08/31/24. Hold due to UTI. Lactobacillus rhamnosus GG 10 1 cap PO DAILY 08/24/24 09/04/24 billion cell capsule (Culturelle) baclofen 10 mg tablet 10 mg PO DAILY 09/04/24 09/04/24 Previous Rx's ?Medication ?Instructions ?Recorded nitroglycerin 0.4 mg sublingual 0.4 mg sublingual Q5M PRN chest 04/28/21 tablet (Nitrostat) pain #25 tabs metoprolol tartrate 25 mg tablet 25 mg PO BID@0900,2100 #120 tabs 11/27/22 atorvastatin 80 mg tablet 80 mg PO BEDTIME #90 tabs 11/10/23 albuterol sulfate 90 mcg/actuation 2 inh inhalation Q4H PRN shortness 05/21/24 aerosol inhaler of breath or wheezing #6.7 grams ticagrelor 60 mg tablet 60 mg PO BID #180 tabs 08/17/24 pantoprazole 40 mg tablet,delayed 40 mg PO BID 90 days #180 tabs 08/31/24 release Allergies Allergy/AdvReac Type Severity Reaction Status Date / Time codeine Allergy Unknown Unknown Verified 09/01/24 10:57 tetanus and diphtheria Allergy Unknown Verified 09/01/24 10:57 toxoids Tetanus Vaccines and Toxoid Allergy Unknown Verified 09/01/24 10:57 Review of Systems Const: Denies: fever(s) or chills Card: Reports: chest pain Resp: Reports: dyspnea GI: Denies: abdominal pain : Denies: dysuria, urinary frequency or urinary urgency Musc: Denies: neck pain or back pain Skin/Breast: Denies: rash 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 x2 during hospitalization with likely mechanism of plavix resistance ST elevation myocardial infarction (STEMI) History of VT (myocardial infarction) Coronary artery disease PAD (peripheral artery disease) HTN (hypertension) Surgical History H/O esophagogastroduodenoscopy (12/19/20) Gastric erosions Status post colonoscopy (12/19/20) Extensive diverticulosis H/O section S/P breast biopsy S/P PTCA (percutaneous transluminal coronary angioplasty) S/P appendectomy History of cholecystectomy S/P femoral-popliteal bypass surgery Family History Other CAD (coronary artery disease) Cancer Diabetes Hypertension Stroke Social History Smoking and tobacco/nicotine status: former use of tobacco/nicotine (quit 2013) Quit status (tobacco/nicotine): has quit using Year quit tobacco: 2016 Alcohol intake: never Substance/Drug Use: never Physical Exam Const: GENERAL APPEARANCE: cooperative ORIENTATION/CONSCIOUSNESS: Yes awake, Yes oriented to person, Yes oriented to place and Yes oriented to time HENMT: COMMON NORMALS: normocephalic, atraumatic and hearing grossly normal bilaterally HEAD & SCALP: normocephalic and atraumatic Resp: COMMON NORMALS: normal respiratory effort, No retractions, No use of accessory muscles and clear to auscultation bilaterally AUSCULTATION: clear to auscultation bilaterally Cardio: COMMON NORMALS: regular rate, regular rhythm and No murmurs present (Cardio) RATE: regular rate RHYTHM: regular rhythm GI: COMMON NORMALS: Soft to palpation and No hepatosplenomegaly present AUSCULTATION: Yes normoactive bowel sounds PALPATION: Yes Soft to palpation, No Tenderness to palpation present (GI), No Guarding due to palpation present (GI) and Yes No hepatosplenomegaly present Extremity: COMMON NORMALS: normal to inspection, capillary refill normal, no clubbing, cyanosis or edema, no calf tenderness and no pedal edema Neuro: SENSORIUM/ORIENTATION: Yes oriented to person, Yes oriented to place and Yes oriented to time Skin: COMMON NORMALS: no rashes or lesions noted GENERAL SKIN EXAM: no rashes or lesions noted Course Vital Signs: Vital signs: Vital Signs Temperature 98.4 F 09/04/24 06:57 Pulse Rate 85 09/04/24 14:00 Respiratory Rate 18 09/04/24 14:00 Blood Pressure 131/62 09/04/24 14:00 Pulse Oximetry 95 09/04/24 14:00 Oxygen Delivery Me thod Nasal Cannula 09/04/24 13:00 Oxygen Flow Rate 3 09/04/24 13:00 MDM - Chest Pain Medical Decision Making Positive for COVID. Discussed with hospitalist will admit due to her hypoxemia. Lab Data 09/04/24 06:25 09/04/24 06:25 Radiology Impressions Chest X-Ray 09/04/24 06:49 IMPRESSION: 1. Mild diffuse interstitial prominence. 2. Poor inspiratory effort. Laboratory Results WBC 8.28 10^3/uL (3.29-11.43) 09/04/24 06:25 RBC 4.13 10^6/uL (3.85-5.65) 09/04/24 06:25 Hgb 9.90 g/dL (11.27-16.99) L 09/04/24 06:25 Hct 33.9 % (36-47) L 09/04/24 06:25 MCV 82.1 fl (85-98) L 09/04/24 06:25 MCH 24.0 pg (27-33) L 09/04/24 06:25 MCHC 29.2 g/dL (30-55) L 09/04/24 06:25 RDW 18.7 % (12.1-15.1) H 09/04/24 06:25 Plt Count 415 10^3/cmm (157-399) H 09/04/24 06:25 MPV 9.7 fL (7.4-10.4) 09/04/24 06:25 Neut % (Auto) 70.9 % 09/04/24 06:25 Lymph % (Auto) 16.2 % 09/04/24 06:25 [place] % (Auto) 9.7 % 09/04/24 06:25 Eos % (Auto) 1.6 % 09/04/24 06:25 Baso % (Auto) 1.0 % 09/04/24 06:25 Neut # (Auto) 5.88 10^3/uL (1.8-7.7) 09/04/24 06:25 Lymph # (Auto) 1.3 10^3/uL (0.8-4.8) 09/04/24 06:25 [place] # (Auto) 0.8 10^3/uL (0.2-0.9) 09/04/24 06:25 Eos # (Auto) 0.1 10^3/uL (0.0-0.8) 09/04/24 06:25 Baso # (Auto) 0.1 10^3/uL (0.0-0.1) 09/04/24:25 Nucleated RBC % (auto) 0.6 % 09/04/24:25 Nucleated RBCs # 0.1 /100WBC 09/04/24 06:25 Sodium 144 mmol/L (136-145) 09/04/24 06:25 Potassium 4.5 mmol/L (3.5-5.1) 09/04/24 06:25 Chloride 106 mmol/L (98-107) 09/04/24 06:25 Carbon Dioxide 21 mmol/L (22-29) L 09/04/24 06:25 Anion Gap 21.5 (5-19) H 09/04/24 06:25 BUN 11 mg/dL (8-23) 09/04/24 06:25 Creatinine 0.8 mg/dL (0.5-0.9) 09/04/24 06:25 GFR Calculation Not Reportable 09/04/24 06:25 Glucose 138 mg/dL (65-115) H 09/04/24 06:25 Calculated Osmolality 300 mOsm/kg (285-295) H 09/04/24 06:25 Lactic Acid 2.2 mmol/L (0.5-2.2) 09/04/24 06:25 Lactic Acid (Sepsis) 1.1 mmol/L (0.5-2.2) 09/04/24 09:33 Calcium 9.0 mg/dL (8.5-10.5) 09/04/24 06:25 Total Bilirubin 1.1 mg/dL (0.15-1.2) 09/04/24 06:25 AST 22 U/L (0-32) 09/04/24 06:25 ALT 10 U/L (0-33) 09/04/24 06:25 Alkaline Phosphatase 108 U/L (35-105) H 09/04/24 06:25 Troponin T Baseline 20 ng/L (0-10) H 09/04/24 06:25 Troponin T 120 Minute 14.08 ng/L (0-10) H 09/04/24 09:09 Delta Troponin T -5.92 ABS# (0-10) L 09/04/24 09:09 Total Protein 7.0 g/dL (6.6-8.7) 09/04/24 06:25 Albumin 3.7 g/dL (3.5-5.2) 09/04/24 06:25 Globulin 3.3 g/dL (1.3-4.6) 09/04/24 06:25 Coronavirus (PCR) Positive (Negative) A 09/04/24 07:16 Influenza A (PCR) Negative (Negative) 09/04/24 07:16 Influenza Type B (PCR) Negative (Negative) 09/04/24 07:16 RSV (PCR) Negative (Negative) 09/04/24 07:16 All radiology interpretation(s) finalized by discharge Discharge Plan Discharge Patient Disposition: Admitted As Inpatient Admit Provider: Juliocesar Castillo Clinical Impression: COVID-19 Condition: Stable Coding Level of Care Code ED Automation Control Integrator for Param Carpio
[2024-09-04 07:22] LABS: Alanine Aminotransferase 10 U/L (0-33); Albumin Level 3.7 g/dL (3.5-5.2); Alkaline Phosphatase 108 U/L (35-105); Anion Gap 21.5 (5-19); Aspartate Amino Transferase 22 U/L (0-32); Blood Urea Nitrogen 11 mg/dL (8-23); Carbon Dioxide 21 mmol/L (22-29); Chloride 106 mmol/L (98-107); Creatinine Clr Calc Pharmacy 55.1476; Globulin 3.3 g/dL (1.3-4.6); Glucose 138 mg/dL (65-115); Osmolality Calculated 300 mOsm/kg (285-295); Potassium 4.5 mmol/L (3.5-5.1); Sodium 144 mmol/L (136-145); Total Bilirubin 1.1 mg/dL (0.15-1.2)
[2024-09-04 07:23] LABS: Troponin(5th) Baseline 20 ng/L (0-10)
[2024-09-04 07:31] LABS: Lactic Sepsis W/Reflex 2.2 mmol/L (0.5-2.2)
[2024-09-04 08:23] LABS: Influenza A NEGATIVE (Negative); Influenza B NEGATIVE (Negative); Respiratory Syncytial Virus Ce NEGATIVE (Negative)
--- NOTE | 2024-09-04 08:49 | ECG_ITS ---
[employer] Test Date: 2024-09-04 Pat Name: Capri Tobar Department: Room: Gender: Female Company Doctor: : 1945 Requested By: Héctor Phillips Order Number: [id number] Kimmy MD: Meliton Ballard M.D. Measurements Intervals [place] Rate: 91 P: 76 MT: 163 QRS: 62 QRSD: 84 T: -65 QT: 388 QTc: 479 Interpretive Statements SINUS RHYTHM WITH OCCASIONAL ECTOPIC PREMATURE COMPLEXES LOW QRS VOLTAGE IN PRECORDIAL LEADS [QRS DEFLECTION < 1.0 mV IN CHEST LEADS] MODERATE T-WAVE ABNORMALITY, CONSIDER ANTEROLATERAL ISCHEMIA [-0.1+ mV T-WAVE IN V3-V6] MODERATE T-WAVE ABNORMALITY, CONSIDER INFERIOR ISCHEMIA [-0.1+ mV T-WAVE IN II/aVF] Compared to ECG 09/04/2024 06:58:59 Sinus tachycardia no longer present T-wave abnormality still present Possible ischemia still present Electronically Signed On 09-04-2024 11:27:06 BEDSPRING ASSEMBLER by Meliton Ballard M.D. [id number]
[2024-09-04 09:01] LABS: SARS-CoV-2 PCR Positive (Negative)
[2024-09-04 09:07] LABS: Reflex Lactate Order REFLEX LACTIC ORDERD
[2024-09-04 09:41] LABS: Troponin 5 2HR 14.08 ng/L (0-10)
[2024-09-04 09:42] LABS: Troponin 5 2HR Delta -5.92 ABS# (0-10)
[2024-09-04 10:01] LABS: Lactic Acid level (Lactate) 1.1 mmol/L (0.5-2.2)
--- NOTE | 2024-09-04 12:14 | PM.HP ---
Providers/Chief Complaint Admitting Physician: Juliocesar Castillo Primary Care Provider: Jenniffer Jenkins MD Chief Complaint: SOB/CP History of Present Illness Pleasant 79-year-old lady with remote history of smoking, diabetes, CAD, coronary stent, stent thrombosis, PAD, HTN, recent hospitalization for GI bleed, presents due to dyspnea, cough, fatigue, malaise, productive cough, nausea, in the ER she is found with tachypnea up to 19, cough, hypoxia, positive for coronavirus, with new oxygen requirement of 3 L by nasal cannula, not normally on oxygen. She reports due to producing phlegm she has been having nausea and intermittent dry heaves due to the phlegm. She lives alone, normally ambulates with a walker. Review of Systems Const: Reports: chills, body aches, fatigue and malaise ENMT: Denies: throat pain Card: Denies: chest pain, edema, pre-syncope or dyspnea on exertion Resp: Denies: dyspnea, productive cough, change in phlegm color or hemoptysis GI: Reports: nausea; Denies: abdominal pain, vomiting, diarrhea, constipation, hematochezia or melena : Denies: flank pain, urinary frequency or hematuria Musc: Denies: back pain, joint swelling or joint redness Skin/Breast: Denies: rash or new lesions Neuro: Denies: headache(s) or confusion Medications/Allergies Home Medications ?Medication ?Instructions ?Recorded ?Confirmed ?Last Taken ?Type allopurinol 100 mg tablet 100 mg PO BEDTIME 09/08/19 09/04/24 07/10/24 History amitriptyline 25 mg tablet 25 mg PO BEDTIME 09/08/19 09/04/24 07/10/24 History acetaminophen 650 mg 1,300 mg PO BID Pain 07/30/20 09/04/24 07/12/24 History tablet,extended release (Tylenol Arthritis Pain) nitroglycerin 0.4 mg sublingual 0.4 mg sublingual Q5M PRN chest 04/28/21 09/04/24 Unknown Rx tablet (Nitrostat) pain #25 tabs gabapentin 300 mg capsule 300 mg PO TID 05/23/21 09/04/24 07/10/24 History metoprolol tartrate 25 mg tablet 25 mg PO BID@0900,2100 #120 tabs 11/27/22 09/04/24 07/10/24 Rx atorvastatin 80 mg tablet 80 mg PO BEDTIME #90 tabs 11/10/23 09/04/24 07/10/24 Rx albuterol sulfate 90 mcg/actuation 2 inh inhalation Q4H PRN shortness 05/21/24 09/04/24 Unknown Rx aerosol inhaler of breath or wheezing #6.7 grams insulin glargine 100 unit/mL (3 25 unit SUBCUT DAILY 07/12/24 09/04/24 07/10/24 History mL) subcutaneous pen (Lantus Solostar U-100 Insulin) levothyroxine 75 mcg tablet 75 mcg PO DAILY 07/12/24 09/04/24 07/10/24 History empagliflozin 25 mg tablet 25 mg PO DAILY 08/15/24 09/04/24 Unknown History (Jardiance) Held on 08/18/24. Instructions: Resume on 08/31/24. Hold due to UTI. ticagrelor 60 mg tablet 60 mg PO BID #180 tabs 08/17/24 09/04/24 Unknown Rx Lactobacillus rhamnosus GG 10 1 cap PO DAILY 08/24/24 09/04/24 Unknown History billion cell capsule (Culturelle) pantoprazole 40 mg tablet,delayed 40 mg PO BID 90 days #180 tabs 08/31/24 09/04/24 Unknown Rx release baclofen 10 mg tablet 10 mg PO DAILY 09/04/24 09/04/24 Unknown History Allergies Allergy/AdvReac Type Severity Reaction Status Date / Time codeine Allergy Unknown Unknown Verified 09/01/24 10:57 tetanus and diphtheria Allergy Unknown Verified 09/01/24 10:57 toxoids Tetanus Vaccines and Toxoid Allergy Unknown Verified 09/01/24 10:57 PFSH Acute PFSH: Medical History ST elevation (STEMI) myocardial infarction Diabetes Melena Chest pain Coronary stent thrombosis Had stent thrombosis x2 during hospitalization with likely mechanism of plavix resistance ST elevation myocardial infarction (STEMI) History of SD (myocardial infarction) Coronary artery disease PAD (peripheral artery disease) HTN (hypertension) Surgical History H/O esophagogastroduodenoscopy (12/19/20) Gastric erosions Status post colonoscopy (12/19/20) Extensive diverticulosis H/O section S/P breast biopsy S/P PTCA (percutaneous transluminal coronary angioplasty) S/P appendectomy History of cholecystectomy S/P femoral-popliteal bypass surgery Family History Other CAD (coronary artery disease) Cancer Diabetes Hypertension Stroke Social History Smoking and tobacco/nicotine status: former use of tobacco/nicotine (quit 2013) Quit status (tobacco/nicotine): has quit using Year quit tobacco: 2016 Alcohol intake: never Substance/Drug Use: never Vitals/I&O/Wt Last Vital Signs Temp 98.4 F 09/04/24 06:57 Pulse 89 09/04/24 12:00 Resp 21 H 09/04/24 12:00 BP 124/51 09/04/24 12:00 Pulse Ox 95 09/04/24 12:00 O2 Del Method Nasal Cannula 09/04/24 11:30 O2 Flow Rate 3 09/04/24 11:30 09/03/24 09/04/24 09/04/24 22:59 06:59 14:59 Intake Total 1572 / 1572 Balance 1572 / 1572 Weight last 48 hrs Weight 77.111 kg Physical Exam Narrative: Appears malaised. Nasal cannula oxygen on. Const: COMMON NORMALS: patient oriented x3 and alert GENERAL APPEARANCE: cooperative ORIENTATION/CONSCIOUSNESS: Yes awake HENMT: COMMON NORMALS: oropharynx normal Neck/C-Spine: COMMON NORMALS: no JVD Resp: COMMON NORMALS: normal respiratory effort AUSCULTATION: wheezes OTHER: Coarse breath sounds. Cardio: COMMON NORMALS: no JVD, regular rhythm, S1 normal heart sound present, S2 normal heart sound present and No murmurs present (Cardio) RHYTHM: regular rhythm HEART SOUNDS: S1 normal heart sound present and S2 normal heart sound present GI: COMMON NORMALS: Normal to inspection, nondistended, normoactive bowel sounds present, Soft to palpation and non-tender PALPATION: Yes Soft to palpation Extremity: COMMON NORMALS: no joint enlargement and no pedal edema Neuro: COMMON NORMALS: patient oriented x3 and moves all extremities SENSORIUM/ORIENTATION: Yes alert Skin: COMMON NORMALS: no rashes or lesions noted GENERAL SKIN EXAM: no rashes or lesions noted Data 09/04/24 06:25 09/04/24 06:25 Micro: Microbiology 09/04/24 07:49 Blood Culture - Preliminary Blood SPECIMEN COLLECTED 09/04/24 07:38 Blood Culture - Preliminary Blood SPECIMEN COLLECTED A&P Assessment and plan (1) Coronavirus infection: Confirmed with the lab, COVID-19 infection, severe infection with new hypoxia requiring 3 L of oxygen, with dyspnea, dry cough, wheezing on exam, tachypnea 21, nausea, some dry heaving with phlegm production. At this time does not appear to have superimposed secondary bacterial faction, monitor for development. Treat severe COVID-19 infection Will collect sputum culture, although continue oxygen support, discussed with her treatment with Decadron, remdesivir. Monitor for risk of hyperglycemia, hypertension, gastritis, encephalopathy with Decadron. Continue PPI. Monitor blood pressures. Check baseline D-dimer. VTE prophylaxis. Reviewed vitals, CBC, CMP, COVID-19, influenza, RSV PCR, chest x-ray, EKG, and monitor treatment with inferior and anterolateral T wave inversions on presentation, possibly demand ischemia, pending official read. She denies any chest pain. Complete troponin EKG series. Reviewed ER provider note, discussed with ER provider. Plan CAD: With history of PCI, stenting, stent thrombosis, suspected Plavix resistance. Continue Brilinta, statin, beta-bimal. HTN: Monitor blood pressure. Continue metoprolol. DM2: Sliding scale insulin, nausea, poor appetite intake, will give 10 units of insulin Lantus for now. PDMP PDMP Reviewed: Not Reviewed Attestations Medical Necessity Statement*: Admission of over 2 midnights anticipated for assessment and management of severe COVID-19 infection with new hypoxia, new oxygen requirement, and a lady with underlying CAD and additional comorbidities. Diagnoses Coronavirus infection B34.2
--- NOTE | 2024-09-04 12:49 | ECG_ITS ---
[facility] Date: 2024-09-04 Pat Name: Capri Tobar Department: Room: EDIP Gender: Female Mental Health Worker: : 1945 Requested By: Héctor Phillips Order Number: [id number] Reading MD: ANGELIC GLEZ Measurements Intervals [place] Rate: 88 P: 77 AL: 152 QRS: 70 QRSD: 90 T: -65 QT: 385 QTc: 468 Interpretive Statements SINUS RHYTHM MODERATE T-WAVE ABNORMALITY, CONSIDER ANTEROLATERAL ISCHEMIA [-0.1+ mV T-WAVE IN V3-V6] MODERATE T-WAVE ABNORMALITY, CONSIDER INFERIOR ISCHEMIA [-0.1+ mV T-WAVE IN II/aVF] Compared to ECG 09/04/2024 08:51:17 No significant changes Electronically Signed On 09-12-2024 23:57:58 HUMAN RESOURCES SUPERVISOR by ANGELIC GLEZ [id number]
[2024-09-04 13:46] LABS: Troponin 5 6HR 14.72 ng/L (0-10)
[2024-09-04 13:49] LABS: Troponin 5 6HR Delta -5.28 ng/L (0-12)
[2024-09-04] MEDS: remdesivir 200 MG in sodium chloride 0.9% (100 ml) 60 ML 100 MG IV (14:48)
[2024-09-04] MEDS: dexamethasone 10 mg/mL INJ 6 MG PO (14:50)
--- NOTE | 2024-09-04 15:25 | USCV_ITS ---
Amadou Capri Age: 79 Gender: F : 1945 Exam Date: 09/04/2024 18:34 Ordering Phys: Juliocesar Castillo MD Technologist: CECILE Exam Location: [facility] [place] Indication: assess for DVT COVID isolation HISTORY: assess for DVT COVID isolation PROCEDURES: Venous duplex imaging was performed in bilateral lower extremities. The following venous structures were evaluated: common femoral vein, profunda vein, proximal portion of the greater saphenous vein, superficial femoral vein, and the popliteal vein. In addition, the posterior tibial and peroneal veins were evaluated. Serial compression, augmentation maneuvers, and spectral Doppler flow evaluation were performed, which were normal. Bilaterally, the common femoral, superficial femoral, profunda femoral, popliteal, posterior tibial, greater saphenous veins, and the peroneal veins were identified and interrogated in the standard fashion. These veins were found to be easily compressible with spontaneous blood flow. No evidence of thrombus noted. CONCLUSIONS No evidence of right lower extremity DVT. No evidence of left lower extremity DVT. Martinez Laureano MD (Electronically Signed) Final Date: 05 September 2024 11:26 S
--- NOTE | 2024-09-04 15:28 | CTR_ITS ---
PROCEDURE INFORMATION: Exam: CTA Chest With Contrast Exam date and time: 09/04/2024 3:44 PM Age: 79 years old Clinical indication: Shortness of breath; Prior surgery; Surgery date: 6+ months; Surgery type: Gb; --sob, cough, chest pain, congestion; Additional info: Assess for pe TECHNIQUE: Imaging protocol: Computed tomographic angiography of the chest with contrast. Exam focused on the arteries. 3D rendering (Not supervised by radiologist): MIP and/or 3D reconstructed images were created by the technologist. Radiation optimization: All CT scans at this facility use at least one of these dose optimization techniques: automated exposure control; mA and/or kV adjustment per patient size (includes targeted exams where dose is matched to clinical indication); or iterative reconstruction. Contrast material: OMNI 350; Contrast volume: 100 ml; Contrast route: INTRAVENOUS (IV); COMPARISON: CT angio chest PE protcl [id number] 08/17/2023 11:43 AM RADIATION DOSE METRICS: Total DLP (mGy-cm): 394.58 FINDINGS: Pulmonary arteries: No evidence of pulmonary embolus. Aorta: Unremarkable. No aortic aneurysm. No aortic dissection. Lungs: Emphysematous COPD with peripheral parenchymal fibrosis. Dependent atelectasis in each lower lobe. Mild infiltrate in the posterior right upper lobe. Pleural spaces: Unremarkable. No pneumothorax. No pleural effusion. Heart: Unremarkable. No cardiomegaly. No pericardial effusion. Lymph nodes: Although still nonspecific in size and number there is slight increasing central adenopathy, the largest lymph node is currently 8 mm in short axis dimension, this same lymph node had previously measured 4 mm in short axis dimension. This might be reactive given the right upper lobe infiltrate which is present. Bones/joints: Unremarkable. No acute fracture. Soft tissues: Unremarkable. CT/CT angio chest PE protcl [id number] IMPRESSION: 1. Right upper lobe infiltrate. 2. Slightly increasing but still nonspecific central and right hilar adenopathy. 3. No evidence of pulmonary embolus.
[2024-09-04] MEDS: iohexol 350 mg/mL 500 mL Btl (per mL) IV (15:54)
[2024-09-04 16:06] LABS: Ketone (Acetest) Serum Negative (Negative)
[2024-09-04 16:34] LABS: Glucose Point of Care 120 mg/dL (70-110)
[2024-09-04] MEDS: pantoprazole DR 40 mg Tablet PO (17:09)
[2024-09-04] MEDS: enoxaparin 40 mg/0.4 mL Syringe SUBCUT (17:09)
[2024-09-04] MEDS: acetaminophen 325 mg Tablet 650 MG PO (17:14)
[2024-09-04 17:32] LABS: Bilirubin Urine Negative (Negative); Blood Urine Trace (Negative); Glucose Urine UA 3+ (Normal); Ketones Urine Trace (Negative); Leukocyte Esterase Urine Negative (Negative); Nitrate Urine Negative (Negative); Protein Urine Negative (Negative); Urine Appearance Clear (CLEAR); Urine Color Yellow (Yellow); Urobilinogen Urine 0.2 mg/dL (Negative)
[2024-09-04 17:39] LABS: Add Urine Microscopic? YES; Bacteria Urine 1+ /hpf; Hyaline Casts Urine 1.21 /lpf; RBC Urine 0-2 /hpf (0-2); Squamous Epithelial Cell Urine 0-5 /hpf (0-5); WBC Urine 0-5 /hpf (0-5)
[2024-09-04 17:48] LABS: Add Urine Culture? No; Specific Gravity, Urine 1.031 (1.005-1.030)
[2024-09-04 20:42] LABS: Glucose Point of Care 163 mg/dL (70-110)
[2024-09-04] MEDS: metoprolol tartrate 25 mg Tablet PO (21:19)
[2024-09-04] MEDS: insulin lispro 100 unit/1 mL SUBCUT (21:19)
[2024-09-04] MEDS: atorvastatin 40 mg Tablet 80 MG PO (21:19)
[2024-09-04] MEDS: ipratropium-albuterol 3 mL Neb INHALATION (21:41)
[2024-09-05] VITALS (12 sets, daily range): BP systolic 100–126; BP diastolic 52–77; PULSE 60–85; RESP 16–20; TEMP 36.4–36.8; O2SAT 92–97
[2024-09-05] MEDS: ipratropium-albuterol 3 mL Neb INHALATION ×4 (01:34→21:29)
[2024-09-05 05:42] LABS: Basophils % 0.2 %; Hematocrit 29.2 % (36-47); Lymphocytes # 0.8 10^3/uL (0.8-4.8); Lymphocytes % 15.1 %; Mean Corpuscular HGB Conc 27.7 g/dL (30-55); Mean Corpuscular Volume 86.6 fl (85-98); Mean Platelet Volume 10.2 fL (7.4-10.4); Monocytes # 0.2 10^3/uL (0.2-0.9); Monocytes % 3.8 %; Neutrophils % 80.5 %; Nucleated Red Blood Cells % 0.4 %; Platelet Count 309 10^3/cmm (157-399); Red Blood Count 3.37 10^6/uL (3.85-5.65); Red Cell Distribution Width 18.8 % (12.1-15.1); White Blood Count 4.97 10^3/uL (3.29-11.43)
[2024-09-05 06:10] LABS: Alanine Aminotransferase 9 U/L (0-33); Albumin Level 2.9 g/dL (3.5-5.2); Alkaline Phosphatase 83 U/L (35-105); Aspartate Amino Transferase 21 U/L (0-32); Blood Urea Nitrogen 18 mg/dL (8-23); Carbon Dioxide 18 mmol/L (22-29); Chloride 106 mmol/L (98-107); Creatinine Clr Calc Pharmacy 55.1958; Globulin 3.3 g/dL (1.3-4.6); Glucose 157 mg/dL (65-115); Osmolality Calculated 295 mOsm/kg (285-295); Sodium 140 mmol/L (136-145); Total Bilirubin 0.8 mg/dL (0.15-1.2); Total Protein 6.2 g/dL (6.6-8.7)
[2024-09-05 06:26] LABS: Glucose Point of Care 144 mg/dL (70-110)
[2024-09-05 06:29] LABS: Anion Gap 20.8 (5-19); Potassium 4.8 mmol/L (3.5-5.1)
[2024-09-05 07:15] LABS: Bacillus cereus group Not Detected (NOT DETECT); Bacillus subtillis group Not Detected (NOT DETECT); Corynebacterium Not Detected (NOT DETECT); Cutibacterium acnes (P.acnes) Not Detected (NOT DETECT); Enterococcus Not Detected (NOT DETECT); Enterococcus faecalis Not Detected (NOT DETECT); Enterococcus faecium Not Detected (NOT DETECT); Lactobacillus species Not Detected (NOT DETECT); Listeria Not Detected (NOT DETECT); Listeria monocytogenes Not Detected (NOT DETECT); Micrococcus Not Detected (NOT DETECT); Pan Candida Not Detected (NOT DETECT); Pan Gram-Negative Not Detected (NOT DETECT); Staphylococcus epidermidis Detected (NOT DETECT); Staphylococcus lugdunensis Not Detected (NOT DETECT); Staphylococcus species Detected (NOT DETECT); Streptococcus agalactiae Not Detected (NOT DETECT); Streptococcus anginosus group Not Detected (NOT DETECT); Streptococcus pneumoniae Not Detected (NOT DETECT); Streptococcus pyogenes Not Detected (NOT DETECT); Streptococcus species Not Detected (NOT DETECT); mecA Detected (NOT DETECT); mecC Not Detected (NOT DETECT)
[2024-09-05] MEDS: pantoprazole DR 40 mg Tablet PO ×2 (07:57→16:58)
[2024-09-05] MEDS: insulin glargine 100 units/1 mL 10 UNIT SUBCUT (07:57)
[2024-09-05] MEDS: insulin lispro 100 unit/1 mL SUBCUT ×4 (07:58→21:20)
--- NOTE | 2024-09-05 09:31 | PC.CHAP ---
Pastoral Care Encounter/Spiritual Assessment Type of Contact [] Declined neuroradiologist visit [] Patient/Family/Request visit [] Outpatient visit [] Follow-up visit [] Physician referral [] Code/Alert [] Routine visit [] Staff referral [] Actively dying [] Patient sleeping [] Family support [] [] Out of room [] Palliative care [] [] Receiving care in room [] Pre-surgical visit [] Trauma [] Long length of stay [] ICU visit [x] Other:Contact precautions. No visit. Relational/Emotional Strength [] Patient feels connected with others/family/visitors/staff [] Distress [] Loneliness/isolation [] Abandonment Spirituality of Patient [] Person of Blanca [] Attends Alevism of their Blanca [] Believes in Prayer [] Reads Bible or Baptist materials [] There are Spiritual issues to be addressed Orthopedically Impaired Teacher Interventions [] Prayer [] Active listening [] Non-anxious presence [] Spiritual/emotional support [] Crisis/trauma care [] Spiritual counseling [] Bereavement support [] Provided bereavement packet [] Provided Bible/devotional materials [] Provided toy/stuffed animal, coloring book to patient or family member [] Provided Communion [] Anointing/[place] [] Salvation [] Completed spiritual assessment [] Other: Impact on Illness or Injury [] Angry [] Fearful [] Anxious [] Often cries [] Exhaustion [] Unable to work [] Unable to attend religious [] Unable to walk/stand [] Unable to read [] Unable to drive [] Unable to eat/drink [] Unable to sleep [] Unable to be with family [] Patient intubated [] Other: Summary Time spent with patient
[2024-09-05 11:37] LABS: Glucose Point of Care 171 mg/dL (70-110)
[2024-09-05] MEDS: acetaminophen 325 mg Tablet 650 MG PO ×2 (11:52→18:12)
[2024-09-05] MEDS: dexamethasone 10 mg/mL INJ 6 MG PO (14:34)
[2024-09-05] MEDS: gabapentin 300 mg Capsule PO ×2 (14:34→21:20)
[2024-09-05] MEDS: enoxaparin 40 mg/0.4 mL Syringe SUBCUT (14:34)
--- NOTE | 2024-09-05 15:02 | P.PN_ITS ---
Subjective 2 Subjective: She is feeling dyspneic, weak, malaised. Vitals/I&O/Wt Last Vital Signs Temp 98.1 F 09/05/24 12:00 Pulse 72 09/05/24 14:35 Resp 16 09/05/24 14:25 BP 102/54 09/05/24 12:00 Pulse Ox 95 09/05/24 14:35 O2 Del Method Nasal Cannula 09/05/24 14:35 O2 Flow Rate 1 09/05/24 14:35 09/05/24 09/05/24 09/05/24 06:59 14:59 22:59 Intake Total 500 / 2812 240 / 240 Output Total 600 / 600 Balance 500 / 2812 -360 / -360 Weight last 48 hrs Weight 77.247 kg Weight 77.111 kg Weight 77.111 kg Physical Exam 2 Narrative: Appears malaised. Nasal cannula oxygen on. Const: COMMON NORMALS: patient oriented x3 and alert GENERAL APPEARANCE: c ooperative ORIENTATION/CONSCIOUSNESS: Yes awake HENMT: COMMON NORMALS: oropharynx normal Neck/C-Spine: COMMON NORMALS: no JVD Resp: COMMON NORMALS: normal respiratory effort and clear to auscultation bilaterally AUSCULTATION: clear to auscultation bilaterally and wheezes O THER: Coarse breath sounds. Cardio: COMMON NORMALS: no JVD, regular rhythm, S1 normal heart sound present, S2 normal heart sound present and No murmurs present (Cardio) RHYTHM: regular rhythm HEART SOUNDS: S1 normal heart sound present and S2 normal heart sound present GI: COMMON NORMALS: Normal to inspection, nondistended, normoactive bowel sounds present, Soft to palpation and non-tender PALPATION: Yes Soft to palpation Extremity: COMMON NORMALS: no joint enlargement and no pedal edema Neuro: COMMON NORMALS: patient oriented x3 and moves all extremities S ENSORIUM/ORIENTATION: Yes alert Skin: COMMON NORMALS: no rashes or lesions noted GENERAL SKIN EXAM: no rashes or lesions noted Data 09/05/24 05:29 09/05/24 05:29 Micro: Microbiology 09/04/24 07:38 Blood Culture - Preliminary Blood Staphylococcus epidermidis 09/04/24 07:49 Blood Culture - Preliminary Blood NEGATIVE TO DATE A&P Assessment and plan (1) Coronavirus infection: Continues to require oxygen, reviewed vitals, afebrile. Reviewed CBC, CMP, UA. Continue remdesivir, Decadron. Monitor for risk of hyperglycemia, encephalopathy, hypertension, gastritis with Decadron. Continue Lovenox for VTE prophylaxis. Repeat D-dimer. CT angiogram without PE. Right upper lobe infiltrate, possible superimposed secondary bacterial infection, will add antibiotic coverage with ceftriaxone, doxycycline. Discussed with nursing, medical case worker. Continue oxygen support. May end up requiring oxygen stay home. Obtain sputum for culture if able to provide. Plan CAD: With history of PCI, stenting, stent thrombosis, suspected Plavix resistance. Continue Brilinta, statin, beta-bimal. HTN: Monitor blood pressure. Continue metoprolol. DM2: Sliding scale insulin, nausea, poor appetite intake, will give 10 units of insulin Lantus for now. PDMP PDMP Reviewed: Not Reviewed Attestations 2 Medical Necessity Statement*: Continue admission for assessment management of severe COVID-19 infection with superimposed bacterial pneumonia. Diagnoses Coronavirus infection B34.2
[2024-09-05 16:40] LABS: Glucose Point of Care 192 mg/dL (70-110)
[2024-09-05] MEDS: TICAGRELOR 60 MG 60 EACH PO (16:57)
[2024-09-05] MEDS: cefTRIAXone 1,000 mg SDV 1000 MG IVP (16:59)
[2024-09-05] MEDS: doxycycline 100 MG in sodium chloride 0.9% (plus) 100 ML IV (17:00)
[2024-09-05] MEDS: remdesivir 100 MG in sodium chloride 0.9% (100 ml) 80 ML IV (18:09)
[2024-09-05 20:33] LABS: Glucose Point of Care 257 mg/dL (70-110)
[2024-09-05] MEDS: atorvastatin 40 mg Tablet 80 MG PO (21:20)
[2024-09-05] MEDS: metoprolol tartrate 25 mg Tablet PO (21:20)
[2024-09-05] MEDS: amitriptyline 25 mg Tablet PO (21:20)
[2024-09-05] MEDS: allopurinol 100 mg Tablet PO (21:20)
[2024-09-06 03:33] VITALS: BP 122/69; PULSE 64; RESP 18; TEMP 36.4; O2SAT 92
[2024-09-06] MEDS: doxycycline 100 MG in sodium chloride 0.9% (plus) 100 ML IV (03:46)
[2024-09-06] MEDS: levothyroxine 75 mcg Tablet PO (05:05)
[2024-09-06 05:39] VITALS: PULSE 56
[2024-09-06 06:03] LABS: Basophils % 0.1 %; Hematocrit 31.7 % (36-47); Lymphocytes # 0.9 10^3/uL (0.8-4.8); Lymphocytes % 12.7 %; Mean Corpuscular HGB Conc 28.7 g/dL (30-55); Mean Corpuscular Hemoglobin 23.9 pg (27-33); Mean Corpuscular Volume 83.2 fl (85-98); Mean Platelet Volume 10.2 fL (7.4-10.4); Monocytes # 0.3 10^3/uL (0.2-0.9); Monocytes % 4.8 %; Neutrophils % 82.1 %; Nucleated Red Blood Cells % 0.6 %; Platelet Count 367 10^3/cmm (157-399); Red Blood Count 3.81 10^6/uL (3.85-5.65); Red Cell Distribution Width 18.9 % (12.1-15.1)
[2024-09-06 06:20] LABS: D Dimer 0.81 ug/mLFEU (0-0.59)
[2024-09-06 06:36] LABS: Alanine Aminotransferase 10 U/L (0-33); Albumin Level 3.4 g/dL (3.5-5.2); Alkaline Phosphatase 88 U/L (35-105); Aspartate Amino Transferase 21 U/L (0-32); Blood Urea Nitrogen 25 mg/dL (8-23); Calcium 8.5 mg/dL (8.5-10.5); Carbon Dioxide 20 mmol/L (22-29); Chloride 106 mmol/L (98-107); Creatinine Clr Calc Pharmacy 49.1344; Globulin 3.5 g/dL (1.3-4.6); Glucose 166 mg/dL (65-115); Osmolality Calculated 302 mOsm/kg (285-295); Sodium 142 mmol/L (136-145); Total Bilirubin 0.4 mg/dL (0.15-1.2); Total Protein 6.9 g/dL (6.6-8.7)
[2024-09-06 06:52] LABS: Glucose Point of Care 178 mg/dL (70-110)
[2024-09-06 07:32] VITALS: BP 117/59; PULSE 68; RESP 19; TEMP 36.4; O2SAT 96
[2024-09-06 08:51] VITALS: PULSE 76; RESP 16; O2SAT 95
[2024-09-06] MEDS: ipratropium-albuterol 3 mL Neb INHALATION (08:51)
[2024-09-06] MEDS: insulin lispro 100 unit/1 mL SUBCUT ×2 (09:25→12:35)
[2024-09-06] MEDS: metoprolol tartrate 25 mg Tablet PO (09:26)
[2024-09-06] MEDS: baclofen 10 mg Tablet PO (09:26)
[2024-09-06] MEDS: gabapentin 300 mg Capsule PO (09:26)
[2024-09-06] MEDS: insulin glargine 100 units/1 mL 10 UNIT SUBCUT (09:26)
[2024-09-06] MEDS: TICAGRELOR 60 MG 60 EACH PO (09:26)
[2024-09-06] MEDS: pantoprazole DR 40 mg Tablet PO (09:26)
--- NOTE | 2024-09-06 10:03 | PC.SOCIAL ---
IMM Updated Updated pt on IMM. No questions voiced. Provided pt a copy. Initialed, dated, & timed a copy & placed in chart.
[2024-09-06 11:18] LABS: Glucose Point of Care 184 mg/dL (70-110)
[2024-09-06 11:28] VITALS: BP 125/71; PULSE 70; RESP 18; TEMP 36.5; O2SAT 100
--- NOTE | 2024-09-06 11:42 | P.DS_ITS ---
Discharge Providers Date of Admission: 09/04/24 11:52 Date of Discharge: September 06, 2024 Attending Provider at Admission: Juliocesar Castillo Attending Provider at Discharge: Juliocesar Castillo Primary Care Provider: Jenniffer Jenkins MD Diagnoses at Discharge Discharge Diagnosis (1) Coronavirus infection: Status: Acute Reason for Visit Reason for Visit: SOB/CP Brief History: Pleasant 79-year-old lady with remote history of smoking, diabetes, CAD, coronar y stent, stent thrombosis, PAD, HTN, recent hospitalization for GI bleed, presents due to dyspnea, cough, fatigue, malaise, productive cough, nausea, in the ER she is found with tachypnea up to 19, cough, hypoxia, positive for coronavirus, with new oxygen requirement of 3 L by nasal cannula, not normally on oxygen. She reports due to producing phlegm she has been having nausea and intermittent dry heaves due to the phlegm. She lives alone, normally ambulates with a walker. Hospital Course Hospital Course She was admitted and started on treatment with remdesivir, Decadron due to severe COVID-19 with new oxygen requirement 3 L, not normally on oxygen. With treatment she has been improving, weaning down on oxygen requirement, currently down to 1 L. With possible right upper lobe secondary pneumonia was also empirically started on ceftriaxone and doxycycline. CT angiogram chest without PE after abnormal D-dimer, with incidentally seen slightly increased but still nonspecific central and right hilar adenopathy. Lower extremity duplex negative for DVT. She has been generally somewhat weakened and deconditioned and would benefit from rehabilitation at SNF prior to return home where she lives alone, normally ambulates with a walker. Physical Exam Narrative: Nasal cannula oxygen. Generally weakened. Ambulating to the restroom. Const: COMMON NORMALS: patient oriented x3 and alert GENERAL APPEARANCE: cooperative ORIENTATION/CONSCIOUSNESS: Yes awake HENMT: COMMON NORMALS: oropharynx normal Neck/C-Spine: COMMON NORMALS: no JVD Resp: COMMON NORMALS: normal respiratory effort and clear to auscultation bilaterally AUSCULTATION: clear to auscultation bilaterally Cardio: COMMON NORMALS: no JVD, regular rhythm, S1 normal heart sound present, S2 normal heart sound present and No murmurs present (Cardio) RHYTHM: regular rhythm HEART SOUNDS: S1 normal heart sound present and S2 normal heart sound present GI: COMMON NORMALS: Normal to inspection, nondistended, normoactive bowel sounds present, Soft to palpation and non-tender PALPATION: Yes Soft to palpation Extremity: COMMON NORMALS: no joint enlargement and no pedal edema Neuro: COMMON NORMALS: patient oriented x3 and moves all extremities SENSORIUM/ORIENTATION: Yes alert Skin: COMMON NORMALS: no rashes or lesions noted GENERAL SKIN EXAM: no rashes or lesions noted Discharge Data Studies Completed and Pending Completed Studies During Hospitalization Category Date Time Status CTA chest [CT angio chest PE protcl 00571] Routine Cat Scan 09/04/24 15:28 Completed XR chest 1V portable [id number] Stat Exams 09/04/24 06:49 [place] [id number] Routine Ultrasound 09/04/24 15:25 Completed Pending at discharge Category Date Time Status Blood Culture Stat Lab 09/04/24 07:49 Results Complete Blood Count w/Auto AM LABS Lab 09/07/24 04:00 Ordered Comprehensive Metabolic Panel AM LABS Lab 09/07/24 04:00 Ordered Sputum Culture and Gram Stain Routine Lab 09/04/24 14:14 Uncollected Radiology Impressions Chest X-Ray 09/04/24 06:49 IMPRESSION: 1. Mild diffuse interstitial prominence. 2. Poor inspiratory effort. Chest CTA 09/04/24 15:28 IMPRESSION: 1. Right upper lobe infiltrate. 2. Slightly increasing but still nonspecific central and right hilar adenopathy. 3. No evidence of pulmonary embolus. Laboratory Results WBC 6.70 10^3/uL (3.29-11.43) 09/06/24 05:29 RBC 3.81 10^6/uL (3.85-5.65) L 09/06/24 05:29 Hgb 9.10 g/dL (11.27-16.99) L 09/06/24 05:29 Hct 31.7 % (36-47) L 09/06/24 05:29 MCV 83.2 fl (85-98) L 09/06/24 05:29 MCH 23.9 pg (27-33) L 09/06/24 05:29 MCHC 28.7 g/dL (30-55) L 09/06/24 05:29 RDW 18.9 % (12.1-15.1) H 09/06/24 05:29 Plt Count 367 10^3/cmm (157-399) 09/06/24 05: MPV 10.2 fL (7.4-10.4) 09/06/24 05: Neut % (Auto) 82.1 % 09/06/24 05:29 Lymph % (Auto) 12.7 % 09/06/24 05: [place] % (Auto) 4.8 % 09/06/24 05: Eos % (Auto) 0.0 % 09/06/24 05:29 Baso % (Auto) 0.1 % 09/06/24 05: Neut # (Auto) 5.50 10^3/uL (1.8-7.7) 09/06/24 05: Lymph # (Auto) 0.9 10^3/uL (0.8-4.8) 09/06/24 05: [place] # (Auto) 0.3 10^3/uL (0.2-0.9) 09/06/24 05: Eos # (Auto) 0.0 10^3/uL (0.0-0.8) 09/06/24 05: Baso # (Auto) 0.0 10^3/uL (0.0-0.1) 09/06/24 05: Nucleated RBC % (auto) 0.6 % 09/06/24 05: Nucleated RBCs # 0.0 /100WBC 09/06/24 05: D-Dimer 0.81 ug/mLFEU (0-0.59) H 09/06/24 05:29 Sodium 142 mmol/L (136-145) 09/06/24 05: Potassium 4.0 mmol/L (3.5-5.1) 09/06/24 05: Chloride 106 mmol/L (98-107) 09/06/24 05: Carbon Dioxide 20 mmol/L (22-29) L 09/06/24 05:29 Anion Gap 20.0 (5-19) H 09/06/24 05:29 BUN 25 mg/dL (8-23) H 09/06/24 05:29 Creatinine 0.9 mg/dL (0.5-0.9) 09/06/24 05:29 GFR Calculation Not Reportable 09/06/24 05:29 Glucose 166 mg/dL (65-115) H 09/06/24 05:29 POC Glucose 184 mg/dL (70-110) H 09/06/24 11:02 Calculated Osmolality 302 mOsm/kg (285-295) H 09/06/24 05:29 Lactic Acid 2.2 mmol/L (0.5-2.2) 09/04/24 06:25 Lactic Acid (Sepsis) 1.1 mmol/L (0.5-2.2) 09/04/24 09:33 Calcium 8.5 mg/dL (8.5-10.5) 09/06/24 05:29 Total Bilirubin 0.4 mg/dL (0.15-1.2) 09/06/24 05:29 AST 21 U/L (0-32) 09/06/24 05: ALT 10 U/L (0-33) 09/06/24 05:29 Alkaline Phosphatase 88 U/L (35-105) 09/06/24 05:29 Troponin T Baseline 20 ng/L (0-10) H 09/04/24 06:25 Troponin T 120 Minute 14.08 ng/L (0-10) H 09/04/24 09:09 Delta Troponin T -5.92 ABS# (0-10) L 09/04/24 09:09 Troponin T Hi Sens 6Hr 14.72 ng/L (0-10) H 09/04/24 12:52 Troponin T Hi Sens 6Hr Delta -5.28 ng/L (0-12) L 09/04/24 12:52 Total Protein 6.9 g/dL (6.6-8.7) 09/06/24 05:29 Albumin 3.4 g/dL (3.5-5.2) L 09/06/24 05:29 Globulin 3.5 g/dL (1.3-4.6) 09/06/24 05:29 Urine Color Yellow (Yellow) 09/04/24 16:10 Urine Appearance Clear (CLEAR) 09/04/24 16:10 Urine pH 5.0 (5-7) 09/04/24 16:10 Ur Specific [place] 1.031 (1.005-1.030) H 09/04/24 16:10 Urine Protein Negative (Negative) 09/04/24 16:10 Urine Glucose (UA) 3+ (Normal) H 09/04/24 16:10 Urine Ketones Trace (Negative) 09/04/24 16:10 Urine Blood Trace (Negative) A 09/04/24 16:10 Urine Nitrate Negative (Negative) 09/04/24 16:10 Urine Bilirubin Negative (Negative) 09/04/24 16:10 Urine Urobilinogen 0.2 mg/dL (Negative) 09/04/24 16:10 Ur Leukocyte Esterase Negative (Negative) 09/04/24 16:10 Urine RBC 0-2 /hpf (0-2) 09/04/24 16:10 Urine WBC 0-5 /hpf (0-5) 09/04/24 16:10 Ur Squamous Epith Cells 0-5 /hpf (0-5) 09/04/24 16:10 Amorphous Sediment Not Reportable 09/04/24 16:10 Urine Bacteria 1+ /hpf (NONE) H 09/04/24 16:10 Hyaline Casts 1.21 /lpf 09/04/24 16:10 Serum Ketones Negative (Negative) 09/04/24 06:25 Coronavirus (PCR) Positive (Negative) A 09/04/24 07:16 Influenza A (PCR) Negative (Negative) 09/04/24 07:16 Influenza Type B (PCR) Negative (Negative) 09/04/24 07:16 RSV (PCR) Negative (Negative) 09/04/24 07:16 Vitals Last Vital Signs Temp 97.7 F 09/06/24 11:28 Pulse 70 09/06/24 11:28 Resp 18 09/06/24 11:28 BP 125/71 09/06/24 11:28 Pulse Ox 100 09/06/24 11:28 O2 Del Method Nasal Cannula 09/06/24 11:28 O2 Flow Rate 1 09/06/24 08:51 Discharge Plan Discharge Patient Disposition: Xfer SNF Condition: Stable Prescriptions: New doxycycline hyclate 100 mg capsule 100 mg PO BID 5 Days Qty: 10 0RF cefdinir 300 mg capsule 300 mg PO BID 5 Days Qty: 10 0RF Continued acetaminophen [Tylenol Arthritis Pain] 650 mg tablet extended release 1,300 mg PO BID allopurinol 100 mg tablet 100 mg PO BEDTIME amitriptyline 25 mg tablet 25 mg PO BEDTIME pantoprazole 40 mg tablet,delayed release (DR/EC) 40 mg PO BID 90 Days Qty: 180 0RF Culturelle 10 billion cell capsule 1 cap PO DAILY nitroglycerin [Nitrostat] 0.4 mg tablet, sublingual 0.4 mg sublingual Q5M PRN (Reason: chest pain) Qty: 25 4RF Rx Instructions: DO NOT EXCEED 3 DOSES PER EPISODE metoprolol tartrate 25 mg tablet 25 mg PO BID@0900,2100 Qty: 120 3RF atorvastatin 80 mg tablet 80 mg PO BEDTIME Qty: 90 3RF ticagrelor 60 mg tablet 60 mg PO BID Qty: 180 1RF gabapentin 300 mg capsule 300 mg PO TID albuterol sulfate 90 mcg/actuation HFA aerosol inhaler 2 inh INHALATION Q4H PRN (Reason: shortness of breath or wheezing) Qty: 6.7 1RF levothyroxine 75 mcg tablet 75 mcg PO DAILY insulin glargine [Lantus Solostar U-100 Insulin] 100 unit/mL (3 mL) insulin pen 25 unit SUBCUT DAILY Jardiance 25 mg tablet 25 mg PO DAILY baclofen 10 mg tablet 10 mg PO DAILY Discharge Orders: Discharge Order (Routine); Ordered 09/06/24 Ordered By: Juliocesar Castillo Referrals: [facility] [place] [Outside] Jenniffer Jenkins MD [Primary Care Provider] - 4-7 days (We have notified your physician's clinic of the need for a follow-up appointment to be scheduled. If you have not heard from them within the next 2 business days, please call them directly. ) Discharge Diet: Cardiac Discharge Activity: Increase activity as tolerated, As per PT/OT instructions and Oxygen as instructed Patient Instructions: Opioid Safety Activity Restrictions/Additional Instructions: Follow-up with your primary provider for reassessment after COVID-19 infection with suspected secondary bacterial pneumonia. Complete antibiotic course. Continue oxygen 1L by nasal cannula, wean down as tolerating. Target oxygen saturation 92%. Seek medical attention in case of any worsening or new concerning symptoms. Discharge Attestations Time Spent in Discharge Care*: greater than 30 min Quality Metrics Clinical Quality Measures [ No reported AMI, CVA or VTE this stay] Coding Level of Care Code 33041 Total time (in minutes) for Discharge: 45 Diagnoses Coronavirus infection B34.2
[2024-09-06] MEDS: acetaminophen 325 mg Tablet 650 MG PO (12:34)
--- NOTE | 2024-09-06 12:47 | PC.NURSE ---
Attempted to call report to [facility]. No answer and message left to return call.
--- NOTE | 2024-09-06 13:24 | PC.NURSE ---
Report called to WILLEM Mendez at [facility]. All questions answered. Facility to transport pt.
[2024-09-06 14:23] VITALS: BP 125/71; PULSE 70; RESP 18; TEMP 36.5; O2SAT 100
== END 2024-09-06 14:10 | disposition skilled nursing facility (03) | DRG 177 ==
LOC: ER 07:08 → ER IP 11:52 → MEDSURG 14:57
PROVIDERS: Admitting Provider Internal Medicine; Emergency Provider Family Medicine; PCP Internal Medicine; Visit Provider Internal Medicine
DX: U07.1 COVID-19 (principal); J12.82 Pneumonia due to coronavirus disease 2019; E11.51 Type 2 diabetes mellitus with diabetic peripheral angiopathy without gangrene; Z79.4 Long term (current) use of insulin; Z79.84 Long term (current) use of oral hypoglycemic drugs; I25.10 Atherosclerotic heart disease of native coronary artery without angina pectoris; I10 Essential (primary) hypertension; R09.02 Hypoxemia; Z87.891 Personal history of nicotine dependence; Z95.5 Presence of coronary angioplasty implant and graft; I25.2 Old myocardial infarction
CPT/HCPCS: 36415; 36416; 71045; 71275; 80053; 81001; 82009; 82962; 83605; 84484; 85025; 85378; 87040; 87077; 87150; 87186; 87205; 87637; 93005; 93970; 94640; 96372; 97161; 97165; 97535; 99285; J0248; J0696; J1100; J1650; J1815; J3490; J7030

== ENCOUNTER 2024-09-27 14:57 | Outpatient (CLI) | payer MEDICARE, SELFPAY ==
--- NOTE | 2024-09-27 15:01 | XR_ITS ---
WS: [id number] Chest 2 views, 09/27/2024 Clinical Data: DYSPNEA Comparison: Portable chest, 09/04/2024 Findings: No nodules, masses or effusions are seen. The heart is normal. The pulmonary vascularity is not increased. No pneumonia or pneumothorax is seen. The aortic arch shows calcification with tortuosity of the descending thoracic aorta. There is a right upper quadrant surgical clip. XR/XR chest 2V* [id number] Impression: Atherosclerosis.
== END 2024-09-27 14:58 | disposition home or self-care (01) ==
LOC: RAD 14:58
PROVIDERS: PCP Internal Medicine; Visit Provider Nurse Practitioner Family
DX: R06.00 Dyspnea, unspecified (principal); I70.0 Atherosclerosis of aorta
CPT/HCPCS: 71046

== ENCOUNTER 2024-09-30 17:45 | Emergency (ER) | payer MEDICARE, SELFPAY ==
[2024-09-30 17:46] VITALS: BP 129/74; PULSE 115; RESP 20; TEMP 36.3; O2SAT 93
--- NOTE | 2024-09-30 17:55 | ECG_ITS ---
[employer] Test Date: 2024-09-30 Pat Name: Capri Tobar Department: Room: Gender: Female Group Therapist: : [id number] Requested By: Miroslava Phillips Order Number: [id number] Kimmy MD: ANGELIC GLEZ Measurements Intervals [place] Rate: 109 P: 54 NE: 150 QRS: 34 QRSD: 78 T: -43 QT: 321 QTc: 434 Interpretive Statements SINUS TACHYCARDIA WITH OCCASIONAL VENTRICULAR PREMATURE COMPLEXES ST DEVIATION AND MODERATE T-WAVE ABNORMALITY, CONSIDER ANTEROLATERAL ISCHEMIA [-0.1+ mV T-WAVE IN V3-V6] ST DEVIATION AND MODERATE T-WAVE ABNORMALITY, CONSIDER INFERIOR ISCHEMIA [-0.1+ mV T-WAVE IN II/aVF] Compared to ECG 09/04/2024 12:51:57 Ventricular premature complex(es) now present Sinus rhythm no longer present T-wave abnormality still present Possible ischemia still present Electronically Signed On 10-02-2024 18:10:59 CDT by ANGELIC GLEZ [email or web address]
--- NOTE | 2024-09-30 18:36 | XRR_ITS ---
PROCEDURE INFORMATION: Exam: XR Chest Exam date and time: 09/30/2024 7:01 PM Age: 79 years old Clinical indication: Shortness of breath; Prior surgery; Surgery date: 6+ months; Surgery type: Ptca; Additional info: SOB TECHNIQUE: Imaging protocol: Radiologic exam of the chest. Views: 1 view. COMPARISON: CR XR chest 2V* [id number] 09/27/2024 3:10 PM FINDINGS: Lungs: Chronic peripheral reticular opacities, likely mild fibrosis. No focal consolidation. Pleural spaces: Unremarkable. No pleural effusion. No pneumothorax. Heart/Mediastinum: Unremarkable. No cardiomegaly. Vasculature: Atherosclerotic aortic calcifications. Bones/joints: Unremarkable. XR/XR chest 1V portable [id number] IMPRESSION: No acute findings.
--- NOTE | 2024-09-30 18:37 | XRR_ITS ---
PROCEDURE INFORMATION: Exam: XR Spine; Lumbar Exam date and time: 09/30/2024 7:04 PM Age: 79 years old Clinical indication: Pain: Lower back pain TECHNIQUE: Imaging protocol: XR of the spine. Exam focused on the lumbar spine. Views: 1 view. 1 view. COMPARISON: CT abdomen pelvis w con* [id number] 08/24/2024 8:26 PM FINDINGS: Bones/joints: A single AP view of the lumbar spine demonstrates levocurvature with multilevel degenerative changes. No definite acute osseous findings. Organs: Cholecystectomy clips. Vasculature: Vascular calcifications. Soft tissues: Normal. 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 No definite acute osseous findings.
--- NOTE | 2024-09-30 18:46 | W.ED.SOB ---
HPI - SOB/Dyspnea General: Chief Complaint: Shortness of Breath/Dyspnea Stated Complaint: sob - pt on oxygen, blood in stool Time Seen by Provider: 09/30/24 18:17 History of Present Illness: HPI Narrative: Patient presents with multiple complaints including worsening shortness of breath, leg pain, and rectal bleeding. The shortness of breath has become more pronounced today, particularly with exertion. Patient recently started oxygen therapy at 2L but reports minimal improvement. Has history of COPD/emphysema diagnosed approximately 4 years ago with previous home oxygen requirement that was later discontinued. Current O2 saturations typically range between 91-93% on supplemental oxygen. Additionally, patient reports severe leg pain starting from the posterior ankle, extending through the calf and up the entire leg, with associated mid-thoracic back pain. Onset of inability to walk occurred last Wednesday. Pain is described as multifaceted (sharp, dull, aching). Previous medical evaluation by PCP and [facility] resulted in no specific intervention. Current pain management with Tylenol provides minimal relief. Patient also reports new onset of rectal bleeding today, with both dark clots and bright red blood. No known hemorrhoids. Has history of similar bleeding episodes. Was previously scheduled for colonoscopy but unable to complete prep due to senior care stay. Recent medical history includes hospitalization 2-3 weeks ago followed by 11-day senior care stay for [facility]. Was discharged home on Wednesday but required ambulance transport back to hospital on Wednesday morning. Related Data Home Medications ?Medication ?Instructions ?Recorded ?Confirmed allopurinol 100 mg tablet 100 mg PO BEDTIME 09/08/19 09/04/24 amitriptyline 25 mg tablet 25 mg PO BEDTIME 09/08/19 09/04/24 acetaminophen 650 mg 1,300 mg PO BID Pain 07/30/20 09/04/24 tablet,extended release (Tylenol Arthritis Pain) gabapentin 300 mg capsule 300 mg PO TID 05/23/21 09/04/24 insulin glargine 100 unit/mL (3 25 unit SUBCUT DAILY 07/12/24 09/04/24 mL) subcutaneous pen (Lantus Solostar U-100 Insulin) levothyroxine 75 mcg tablet 75 mcg PO DAILY 07/12/24 09/04/24 empagliflozin 25 mg tablet 25 mg PO DAILY 08/15/24 09/04/24 (Jardiance) Lactobacillus rhamnosus GG 10 1 cap PO DAILY 08/24/24 09/04/24 billion cell capsule (Culturelle) baclofen 10 mg tablet 10 mg PO DAILY 09/04/24 09/04/24 Previous Rx's ?Medication ?Instructions ?Recorded nitroglycerin 0.4 mg sublingual 0.4 mg sublingual Q5M PRN chest 04/28/21 tablet (Nitrostat) pain #25 tabs metoprolol tartrate 25 mg tablet 25 mg PO BID@0900,2100 #120 tabs 11/27/22 atorvastatin 80 mg tablet 80 mg PO BEDTIME #90 tabs 11/10/23 albuterol sulfate 90 mcg/actuation 2 inh inhalation Q4H PRN shortness 05/21/24 aerosol inhaler of breath or wheezing #6.7 grams ticagrelor 60 mg tablet 60 mg PO BID #180 tabs 08/17/24 pantoprazole 40 mg tablet,delayed 40 mg PO BID 90 days #180 tabs 08/31/24 release Allergies Allergy/AdvReac Type Severity Reaction Status Date / Time codeine Allergy Unknown Unknown Verified 09/01/24 10:57 tetanus and diphtheria Allergy Unknown Verified 09/01/24 10:57 toxoids Tetanus Vaccines and Toxoid Allergy Unknown Verified 09/01/24 10:57 PFS ED PFS: Medical History ST elevation (STEMI) myocardial infarction Diabetes Melena Chest pain Coronary stent thrombosis Had stent thrombosis x2 during hospitalization with likely mechanism of plavix resistance ST elevation myocardial infarction (STEMI) History of ND (myocardial infarction) Coronary artery disease PAD (peripheral artery disease) HTN (hypertension) Surgical History H/O esophagogastroduodenoscopy (12/19/20) Gastric erosions Status post colonoscopy (12/19/20) Extensive diverticulosis H/O section S/P breast biopsy S/P PTCA (percutaneous transluminal coronary angioplasty) S/P appendectomy History of cholecystectomy S/P femoral-popliteal bypass surgery Family History Other CAD (coronary artery disease) Cancer Diabetes Hypertension Stroke Social History Smoking and tobacco/nicotine status: former use of tobacco/nicotine (quit 2013) Quit status (tobacco/nicotine): has quit using Year quit tobacco: 2016 Alcohol intake: never Substance/Drug Use: never Physical Exam Const: COMMON NORMALS: no acute distress, patient oriented x3, alert and well nourished HENMT: COMMON NORMALS: normocephalic HEAD & SCALP: normocephalic Eye: COMMON NORMALS: Equal, round and reactive pupils present, EOMs intact bilaterally and conjunctivae normal CONJUNCTIVA: Yes conjunctivae normal PUPIL: Yes Equal, round and reactive pupils present Chest: COMMONS NORMALS: normal inspection of the chest and normal palpation of entire chest wall Resp: COMMON NORMALS: No retractions, No use of accessory muscles and clear to auscultation bilaterally (Diminished through out) AUSCULTATION: clear to auscultation bilaterally (Diminished through out) GI: COMMON NORMALS: Normal to inspection, nondistended, normoactive bowel sounds present, Soft to palpation, non-tender, No hepatosplenomegaly present, no masses and no bruits PALPATION: Yes Soft to palpation and Yes No hepatosplenomegaly present : COMMON NORMALS: Yes no CVA tenderness BLADDER/KIDNEY EXAM: Yes no CVA tenderness Back/Pelvis: COMMON NORMALS: no CVA tenderness Extremity: COMMON NORMALS: normal to inspection, full ROM, capillary refill normal, no joint enlargement, no clubbing, cyanosis or edema, no calf tenderness and no pedal edema Neuro: COMMON NORMALS: patient oriented x3 SENSORIUM/ORIENTATION: Yes alert Skin: COMMON NORMALS: no rashes or lesions noted, turgor normal and no jaundice GENERAL SKIN EXAM: no rashes or lesions noted and turgor normal Course Vital Signs: Vital signs: Vital Signs Temperature 97.4 F L 09/30/24 17:46 Pulse Rate 101 H 09/30/24 20:22 Respiratory Rate 16 09/30/24 20:22 Blood Pressure 169/82 09/30/24 20:22 Pulse Oximetry 92 09/30/24 20:22 Oxygen Delivery Me thod Nasal Cannula 09/30/24 20:22 Oxygen Flow Rate 1 09/30/24 20:22 MDM - SOB/Dyspnea Medical Decision Making Patient has several different iassues that are more chronic or subacute and not sure they are related. Will begin work up with imaging, labs and serial vital signs. 1. Shortness of Breath: - Likely exacerbation of underlying COPD - Plan: Chest X-ray ordered - Continue oxygen supplementation - Monitor O2 saturations 2. Leg Pain with Associated Back Pain: - Clinical presentation suggests radiculopathy - Previous recommendation for back surgery noted - Plan: Back X-ray ordered - Parenteral pain medication to be administered 3. Rectal Bleeding: - Mixed bright red blood and dark clots concerning for GI bleed - History of similar episodes - Plan: Further GI workup needed - Consider GI consultation once stabilized 4. Overall Plan: - Obtain imaging studies as ordered - Reassess after pain medication administration - Consider admission based on clinical response and study results Patient's chest x-ray did not reveal any new findings the lumbar spine revealed some significant pathology was some curvature as well as degenerative changes. Her workup otherwise was for the most part unremarkable her urine analysis was unremarkable but she has not have any dysuria I suspect some of this is chronic and related to some of her bleeding and she will need followed up will go ahead and send it for culture but I do not think at this point antibiotics are warranted. Patient's prognosis is somewhat poor but currently she does not meet criteria to come in the hospital. We will try to have her arrange possible readmission to the senior care as I think this would be the best thing for which she will need to do this on an outpatient basis. The patient was counseled on all of the above findings and reviewed the plan with her as well as her friend who accompanies her. They are all in agreement although they were hoping she could be admitted in the hospital but we talked about the risks and benefits of hospital admission and currently she does not have criteria. She does have a walker at home we talked about fall precautions send the importance of close follow-up. Differential Diagnosis Likely acute exacerbation of chronic obstructive airways disease, congestive heart failure and community acquired pneumonia Lab Data 09/30/24 18:49 09/30/24 18:49 Labs/Radiology: Radiology Impressions Chest X-Ray 09/30/24 18:36 IMPRESSION: No acute findings. Lumbar Spine X-Ray 09/30/24 18:37 IMPRESSION: Levocurvature of the lumbar spine with multilevel degenerative changes. No definite acute osseous findings. Laboratory Results WBC 8.56 10^3/uL (3.29-11.43) 09/30/24 18:49 RBC 4.42 10^6/uL (3.85-5.65) 09/30/24 18:49 Hgb 9.90 g/dL (11.27-16.99) L 09/30/24 18:49 Hct 35.2 % (36-47) L 09/30/24 18:49 MCV 79.6 fl (85-98) L 09/30/24 18:49 MCH 22.4 pg (27-33) L 09/30/24 18:49 MCHC 28.1 g/dL (30-55) L 09/30/24 18:49 RDW 18.2 % (12.1-15.1) H 09/30/24 18:49 Plt Count 369 10^3/cmm (157-399) 09/30/24 18:49 MPV 9.7 fL (7.4-10.4) 09/30/24 18:49 Neut % (Auto) 70.6 % 09/30/24 18:49 Lymph % (Auto) 17.4 % 09/30/24 18:49 Wallace % (Auto) 8.6 % 09/30/24 18:49 Eos % (Auto) 2.2 % 09/30/24 18:49 Baso % (Auto) 0.7 % 09/30/24 18:49 Neut # (Auto) 6.04 10^3/uL (1.8-7.7) 09/30/24 18:49 Lymph # (Auto) 1.5 10^3/uL (0.8-4.8) 09/30/24 18:49 Wallace # (Auto) 0.7 10^3/uL (0.2-0.9) 09/30/24 18:49 Eos # (Auto) 0.2 10^3/uL (0.0-0.8) 09/30/24 18:49 Baso # (Auto) 0.1 10^3/uL (0.0-0.1) 09/30/24 18:49 Nucleated RBC % (auto) 0 % 09/30/24 18:49 Nucleated RBCs # 0.0 /100WBC 09/30/24 18:49 Sodium 143 mmol/L (136-145) 09/30/24 18:49 Potassium 4.1 mmol/L (3.5-5.1) 09/30/24 18:49 Chloride 109 mmol/L (98-107) H 09/30/24 18:49 Carbon Dioxide 20 mmol/L (22-29) L 09/30/24 18:49 Anion Gap 18.1 (5-19) 09/30/24 18:49 BUN 14 mg/dL (8-23) 09/30/24 18:49 Creatinine 0.7 mg/dL (0.5-0.9) 09/30/24 18:49 GFR Calculation Not Reportable 09/30/24 18:49 Glucose 145 mg/dL (65-115) H 09/30/24 18:49 Calculated Osmolality 299 mOsm/kg (285-295) H 09/30/24 18:49 Calcium 9.0 mg/dL (8.5-10.5) 09/30/24 18:49 Urine Color Yellow (Yellow) 09/30/24 19:56 Urine Appearance Cloudy (CLEAR) A 09/30/24 19:56 Urine pH 5.0 (5-7) 09/30/24 19:56 Ur Specific [place] 1.036 (1.005-1.030) H 09/30/24 19:56 Urine Protein Trace (Negative) A 09/30/24 19:56 Urine Glucose (UA) 3+ (Normal) H 09/30/24 19:56 Urine Ketones Trace (Negative) 09/30/24 19:56 Urine Blood Trace (Negative) A 09/30/24 19:56 Urine Nitrate Negative (Negative) 09/30/24 19: Urine Bilirubin Negative (Negative) 09/30/24 19:56 Urine Urobilinogen 0.2 mg/dL (Negative) 09/30/24 19:56 Ur Leukocyte Esterase 1+ (Negative) A 09/30/24 19:56 Urine RBC >100 /hpf (0-2) H 09/30/24 19:56 Urine WBC >100 /hpf (0-5) H 09/30/24 19:56 Ur Squamous Epith Cells 0-5 /hpf (0-5) 09/30/24 19:56 Amorphous Sediment Not Reportable 09/30/24 19:56 Urine Bacteria 1+ /hpf (NONE) H 09/30/24 19:56 Hyaline Casts 0.81 /lpf 09/30/24 19:56 Urine Yeast 4+ /hpf H 09/30/24 19:56 XR interpretation done by ED provider, pending radiology final review Discharge Plan Discharge Patient Disposition: Home Clinical Impression: Shortness of breath, Lumbar stenosis with neurogenic claudication Condition: Stable Prescriptions: No Action acetaminophen [Tylenol Arthritis Pain] 650 mg tablet extended release 1,300 mg PO BID allopurinol 100 mg tablet 100 mg PO BEDTIME amitriptyline 25 mg tablet 25 mg PO BEDTIME pantoprazole 40 mg tablet,delayed release (DR/EC) 40 mg PO BID 90 Days Qty: 180 0RF Culturelle 10 billion cell capsule 1 cap PO DAILY nitroglycerin [Nitrostat] 0.4 mg tablet, sublingual 0.4 mg sublingual Q5M PRN (Reason: chest pain) Qty: 25 4RF Rx Instructions: DO NOT EXCEED 3 DOSES PER EPISODE metoprolol tartrate 25 mg tablet 25 mg PO BID@0900,2100 Qty: 120 3RF atorvastatin 80 mg tablet 80 mg PO BEDTIME Qty: 90 3RF ticagrelor 60 mg tablet 60 mg PO BID Qty: 180 1RF gabapentin 300 mg capsule 300 mg PO TID albuterol sulfate 90 mcg/actuation HFA aerosol inhaler 2 inh INHALATION Q4H PRN (Reason: shortness of breath or wheezing) Qty: 6.7 1RF levothyroxine 75 mcg tablet 75 mcg PO DAILY insulin glargine [Lantus Solostar U-100 Insulin] 100 unit/mL (3 mL) insulin pen 25 unit SUBCUT DAILY Jardiance 25 mg tablet 25 mg PO DAILY baclofen 10 mg tablet 10 mg PO DAILY Discharge Orders: Discharge ED (Routine); Ordered 09/30/24 Ordered By: Akbar Rubalcava Referrals: Jenniffer Jenkins MD [Primary Care Provider] - Patient Instructions: Opioid Safety, Pain Management Activity Restrictions/Additional Instructions: 1. Rest, fluids and take medications as directed. 2. Follow up with PCP for endoscopy / further work up. 3. Call senior care and / or PCP to discuss possible readmission to [place]. Print Language: Gibraltarian Coding Level of Care Code ED Justice Court Deputy Clerk for Param Carpio
[2024-09-30 18:56] LABS: Basophils # 0.1 10^3/uL (0.0-0.1); Basophils % 0.7 %; Eosinophils # 0.2 10^3/uL (0.0-0.8); Eosinophils % 2.2 %; Hematocrit 35.2 % (36-47); Lymphocytes # 1.5 10^3/uL (0.8-4.8); Lymphocytes % 17.4 %; Mean Corpuscular HGB Conc 28.1 g/dL (30-55); Mean Corpuscular Hemoglobin 22.4 pg (27-33); Mean Corpuscular Volume 79.6 fl (85-98); Mean Platelet Volume 9.7 fL (7.4-10.4); Monocytes # 0.7 10^3/uL (0.2-0.9); Monocytes % 8.6 %; Neutrophils # 6.04 10^3/uL (1.8-7.7); Neutrophils % 70.6 %; Nucleated Red Blood Cells % 0 %; Platelet Count 369 10^3/cmm (157-399); Red Blood Count 4.42 10^6/uL (3.85-5.65); Red Cell Distribution Width 18.2 % (12.1-15.1); White Blood Count 8.56 10^3/uL (3.29-11.43)
[2024-09-30 18:58] VITALS: BP 150/81; PULSE 96; RESP 20; O2SAT 92
[2024-09-30] MEDS: ketorolac 30 mg/mL INJ IM (19:03)
[2024-09-30 19:17] LABS: Anion Gap 18.1 (5-19); Blood Urea Nitrogen 14 mg/dL (8-23); Carbon Dioxide 20 mmol/L (22-29); Chloride 109 mmol/L (98-107); Creatinine Clr Calc Pharmacy 53.7016; Glucose 145 mg/dL (65-115); Osmolality Calculated 299 mOsm/kg (285-295); Potassium 4.1 mmol/L (3.5-5.1); Sodium 143 mmol/L (136-145)
[2024-09-30 20:22] VITALS: BP 169/82; PULSE 101; RESP 16; O2SAT 92
[2024-09-30 20:28] LABS: Bilirubin Urine Negative (Negative); Blood Urine Trace (Negative); Glucose Urine UA 3+ (Normal); Ketones Urine Trace (Negative); Leukocyte Esterase Urine 1+ (Negative); Nitrate Urine Negative (Negative); Protein Urine Trace (Negative); Urine Appearance Cloudy (CLEAR); Urine Color Yellow (Yellow); Urobilinogen Urine 0.2 mg/dL (Negative)
[2024-09-30 20:31] LABS: Add Urine Microscopic? YES; Bacteria Urine 1+ /hpf; Hyaline Casts Urine 0.81 /lpf; RBC Urine >100 /hpf (0-2); Squamous Epithelial Cell Urine 0-5 /hpf (0-5); Universal Test for UA Present (0); WBC Urine >100 /hpf (0-5)
[2024-09-30 20:51] LABS: Add Urine Culture? Yes; Specific Gravity, Urine 1.036 (1.005-1.030)
[2024-09-30 22:09] VITALS: BP 144/71; PULSE 105; RESP 21; O2SAT 92
== END 2024-09-30 22:12 | disposition home or self-care (01) ==
PROVIDERS: Emergency Provider Family Medicine; PCP Internal Medicine
DX: R06.02 Shortness of breath (principal); M48.062 Spinal stenosis, lumbar region with neurogenic claudication; Z79.4 Long term (current) use of insulin; Z87.891 Personal history of nicotine dependence; I25.10 Atherosclerotic heart disease of native coronary artery without angina pectoris; I10 Essential (primary) hypertension; E11.9 Type 2 diabetes mellitus without complications
CPT/HCPCS: 36415; 71045; 72020; 80048; 81001; 85025; 87086; 93005; 96372; 99284; J1885

== ENCOUNTER 2024-10-09 04:03 | Emergency (ER) | payer MEDICARE, SELFPAY ==
[2024-10-09 04:05] VITALS: BP 140/84; PULSE 103; RESP 18; TEMP 36.9; O2SAT 99; BMI 28.3
[2024-10-09 04:13] VITALS: BP 140/84; PULSE 103; RESP 18; O2SAT 99
--- NOTE | 2024-10-09 04:13 | ECG_ITS ---
[facility] Test Date: 2024-10-09 Pat Name: Capri Tobar Department: Room: Gender: Female Fugitive Investigator: : 1945 Requested By: Anibal Perez Order Number: [id number] Kimmy MD: Meliton Ballard M.D. Measurements Intervals [place] Rate: 100 P: 52 HI: 160 QRS: 20 QRSD: 98 T: -55 QT: 360 QTc: 466 Interpretive Statements SINUS T[address] DEVIATION AND MODERATE T-WAVE ABNORMALITY, CONSIDER INFERIOR ISCHEMIA [-0.1+ mV T-WAVE IN II/aVF] Compared to ECG 09/30/2024 18:00:09 Ventricular premature complex(es) no longer present T-wave abnormality still present Possible ischemia still present Electronically Signed On 10-09-2024 21:02:37 CDT by Meliton Ballard M.D. [id number] [id number]
--- NOTE | 2024-10-09 04:28 | XRR_ITS ---
PROCEDURE INFORMATION: Exam: XR Chest Exam date and time: 10/09/2024 4:31 AM Age: 79 years old Clinical indication: Shortness of breath; Prior surgery; Surgery date: 6+ months; Surgery type: Gb; C/O SOB TECHNIQUE: Imaging protocol: Radiologic exam of the chest. Views: 1 view. COMPARISON: CR (CHEST, ) 09/30/2024 7:01 PM FINDINGS: Lungs: Unremarkable. No consolidation. Pleural spaces: Unremarkable. No pleural effusion. No pneumothorax. Heart/Mediastinum: Unremarkable. No cardiomegaly. Vasculature: Aortic calcification. Bones/joints: Unremarkable. Intraperitoneal space: Right upper quadrant surgical clips. XR/XR chest 1V portable [id number] IMPRESSION: No acute findings.
--- NOTE | 2024-10-09 04:31 | W.ED.ANXIETY ---
HPI - Anxiety General: Chief Complaint: Anxiety Stated Complaint: SOB Time Seen by Provider: 10/09/24 04:07 History of Present Illness: 79-year-old female with multiple complaints this morning. She arrives by ambulance. Complaints are by number. 1. Patient has had an increase in overall chronic pain over the last couple of weeks. She was seen on 09/30 for an increase in pain that was at least somewhat radicular, thought to be related to sciatica. She now complains of pain from her lumbar spine up into her neck, mainly on the left. No saddle anesthesia. No fever. 2. In an attempt to help her pain, this patient was placing IcyHot on her back, and got in her eyes this morning. She is experiencing burning and tearing in her eyes bilaterally. Her vision is intact she says. 3. After getting the IcyHot in her eyes, she began to panic. She placed herself on home oxygen which she wears at times, and shortness of breath improved. She has had a bit of a cough. No sputum production. No fever. Related Data Home Medications ?Medication ?Instructions ?Recorded ?Confirmed allopurinol 100 mg tablet 100 mg PO BEDTIME 09/08/19 09/04/24 amitriptyline 25 mg tablet 25 mg PO BEDTIME 09/08/19 09/04/24 acetaminophen 650 mg 1,300 mg PO BID Pain 07/30/20 09/04/24 tablet,extended release (Tylenol Arthritis Pain) gabapentin 300 mg capsule 300 mg PO TID 05/23/21 09/04/24 insulin glargine 100 unit/mL (3 25 unit SUBCUT DAILY 07/12/24 09/04/24 mL) subcutaneous pen (Lantus Solostar U-100 Insulin) levothyroxine 75 mcg tablet 75 mcg PO DAILY 07/12/24 09/04/24 empagliflozin 25 mg tablet 25 mg PO DAILY 08/15/24 09/04/24 (Jardiance) Lactobacillus rhamnosus GG 10 1 cap PO DAILY 08/24/24 09/04/24 billion cell capsule (Culturelle) baclofen 10 mg tablet 10 mg PO DAILY 09/04/24 09/04/24 Previous Rx's ?Medication ?Instructions ?Recorded nitroglycerin 0.4 mg sublingual 0.4 mg sublingual Q5M PRN chest 04/28/21 tablet (Nitrostat) pain #25 tabs metoprolol tartrate 25 mg tablet 25 mg PO BID@0900,2100 #120 tabs 11/27/22 atorvastatin 80 mg tablet 80 mg PO BEDTIME #90 tabs 11/10/23 albuterol sulfate 90 mcg/actuation 2 inh inhalation Q4H PRN shortness 05/21/24 aerosol inhaler of breath or wheezing #6.7 grams ticagrelor 60 mg tablet 60 mg PO BID #180 tabs 08/17/24 pantoprazole 40 mg tablet,delayed 40 mg PO BID 90 days #180 tabs 08/31/24 release polymyxin B sulfate 10,000 1 drp ophthalmic (eye) QID 5 days 10/09/24 unit-trimethoprim 1 mg/mL eye drops #10 mL Allergies Allergy/AdvReac Type Severity Reaction Status Date / Time codeine Allergy Unknown Unknown Verified 09/01/24 10:57 tetanus and diphtheria Allergy Unknown Verified 09/01/24 10:57 toxoids Tetanus Vaccines and Toxoid Allergy Unknown Verified 09/01/24 10:57 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 x2 during hospitalization with likely mechanism of plavix resistance ST elevation myocardial infarction (STEMI) History of DC (myocardial infarction) Coronary artery disease PAD (peripheral artery disease) HTN (hypertension) Surgical History H/O esophagogastroduodenoscopy (12/19/20) Gastric erosions Status post colonoscopy (12/19/20) Extensive diverticulosis H/O section S/P breast biopsy S/P PTCA (percutaneous transluminal coronary angioplasty) S/P appendectomy History of cholecystectomy S/P femoral-popliteal bypass surgery Family History Other CAD (coronary artery disease) Cancer Diabetes Hypertension Stroke Social History Smoking and tobacco/nicotine status: former use of tobacco/nicotine (quit 2013) Quit status (tobacco/nicotine): has quit using Year quit tobacco: 2016 Alcohol intake: never Substance/Drug Use: never Physical Exam Const: COMMON NORMALS: alert GENERAL APPEARANCE: cooperative, anxious and frail appearing (Mildly) ORIENTATION/CONSCIOUSNESS: Yes awake, Yes oriented to person and Yes oriented to place HENMT: COMMON NORMALS: normocephalic and Normal external nose present HEAD & SCALP: normocephalic FACE & SINUS: normal facial exam NOSE: Normal external nose present Eye: COMMON NORMALS: Equal, round and reactive pupils present and EOMs intact bilaterally CONJUNCTIVA: Yes conjunctival abnormal positive bilateral conjunctival injection (Mild) diffuse PUPIL: Yes Equal, round and reactive pupils present Resp: COMMON NORMALS: normal respiratory effort and clear to auscultation bilaterally AUSCULTATION: clear to auscultation bilaterally Cardio: COMMON NORMALS: regular rate and regular rhythm RATE: regular rate RHYTHM: regular rhythm Neuro: SENSORIUM/ORIENTATION: Yes alert, Yes oriented to person and Yes oriented to place Course Vital Signs: Vital signs: Vital Signs Temperature 98.5 F 10/09/24 04:05 Pulse Rate 87 10/09/24 05:17 Respiratory Rate 20 H 10/09/24 04:44 Blood Pressure 140/84 10/09/24 05:17 Pulse Oximetry 99 10/09/24 05:17 Oxygen Delivery Me thod Nasal Cannula 10/09/24 04:13 Oxygen Flow Rate 2 10/09/24 04:13 MDM - Anxiety Medical Decision Making Chest x-ray is negative. Vitals are stable. She is oxygenating well on her home 2 L she has bilateral chemical conjunctivitis that is mild. Eyes are flushed. She will be prescribed Polytrim. She has multiple other complaints, none of which are emergent at this time. She is encouraged to follow-up with her primary physician, and possibly seek long-term care facility if she is unable to manage on her own at home. Per records, she was encouraged to do this 10 days ago as well. Lab Data Radiology Impressions Chest X-Ray 10/09/24 04:28 IMPRESSION: No acute findings. All radiology interpretation(s) finalized by discharge EKG Data Sinus tachycardia. Rate 100. Normal interval. No ST wave changes.: Interpretation: Chest X-Ray 10/09/24 04:28 IMPRESSION: No acute findings. Other EKG comments: Chest X-Ray 10/09/24 04:28 IMPRESSION: No acute findings. Discharge Plan Discharge Patient Disposition: Home Clinical Impression: Shortness of breath, Lumbar stenosis with neurogenic claudication Acute chemical conjunctivitis Qualifiers: Laterality: bilateral Qualified Code(s): H10.213 - Acute toxic conjunctivitis, bilateral Condition: Stable Prescriptions: New polymyxin B sulf-trimethoprim 10,000 unit- 1 mg/mL drops 1 drp ophthalmic (eye) QID 5 Days Qty: 10 0RF No Action acetaminophen [Tylenol Arthritis Pain] 650 mg tablet extended release 1,300 mg PO BID allopurinol 100 mg tablet 100 mg PO BEDTIME amitriptyline 25 mg tablet 25 mg PO BEDTIME pantoprazole 40 mg tablet,delayed release (DR/EC) 40 mg PO BID 90 Days Qty: 180 0RF Culturelle 10 billion cell capsule 1 cap PO DAILY nitroglycerin [Nitrostat] 0.4 mg tablet, sublingual 0.4 mg sublingual Q5M PRN (Reason: chest pain) Qty: 25 4RF Rx Instructions: DO NOT EXCEED 3 DOSES PER EPISODE metoprolol tartrate 25 mg tablet 25 mg PO BID@0900,2100 Qty: 120 3RF atorvastatin 80 mg tablet 80 mg PO BEDTIME Qty: 90 3RF ticagrelor 60 mg tablet 60 mg PO BID Qty: 180 1RF gabapentin 300 mg capsule 300 mg PO TID albuterol sulfate 90 mcg/actuation HFA aerosol inhaler 2 inh INHALATION Q4H PRN (Reason: shortness of breath or wheezing) Qty: 6.7 1RF levothyroxine 75 mcg tablet 75 mcg PO DAILY insulin glargine [Lantus Solostar U-100 Insulin] 100 unit/mL (3 mL) insulin pen 25 unit SUBCUT DAILY Jardiance 25 mg tablet 25 mg PO DAILY baclofen 10 mg tablet 10 mg PO DAILY Discharge Orders: Discharge ED (Routine); Ordered 10/09/24 Ordered By: Anibal Barnes Referrals: Jenniffer Jenkins MD [Primary Care Provider] - 1-3 days Patient Instructions: Dyspnea (ED), Back Pain (ED), Conjunctivitis (ED), Opioid Safety, Pain Management Activity Restrictions/Additional Instructions: Use the eyedrops every 4 hours while awake for the next couple of days. Return for swelling, worsening vision, etc. See your doctor this week. Print Language: Luxembourgish Coding Level of Care Code ED Radial Arm Saw Operator for Chg Fwd
[2024-10-09] MEDS: LORazepam 2 mg/mL INJ 1 mL 0.5 MG IVP (04:42)
[2024-10-09 04:44] VITALS: RESP 20; O2SAT 99
[2024-10-09] MEDS: morphine 4 mg/mL SDV 1 mL 2 MG IVP (04:44)
[2024-10-09] MEDS: dexamethasone 4 mg/mL INJ 8 MG IVP (04:45)
[2024-10-09] MEDS: tetracaine 0.5% Op Soln 4 mL Btl 2 DROP EYE-BOTH (04:47)
[2024-10-09 05:17] VITALS: BP 140/84; PULSE 87; O2SAT 99
== END 2024-10-09 05:18 | disposition home or self-care (01) ==
PROVIDERS: Emergency Provider Emergency Medicine; PCP Internal Medicine
DX: R06.02 Shortness of breath (principal); M48.062 Spinal stenosis, lumbar region with neurogenic claudication; H10.213 Acute toxic conjunctivitis, bilateral; Z79.4 Long term (current) use of insulin; Z87.891 Personal history of nicotine dependence; E11.9 Type 2 diabetes mellitus without complications; I25.10 Atherosclerotic heart disease of native coronary artery without angina pectoris; I10 Essential (primary) hypertension
CPT/HCPCS: 36415; 71045; 93005; 96374; 96375; 99284; J1100; J2060; J2270; J9999

== ENCOUNTER 2024-10-17 03:30 | Emergency (ER) | payer MEDICARE, SELFPAY ==
[2024-10-17 03:36] VITALS: BP 111/53; PULSE 78; RESP 20; TEMP 36.4; O2SAT 98; BMI 28.7
--- NOTE | 2024-10-17 04:02 | W.ED.ABDPA2 ---
Documented by User: Miroslava Arias MD 10/17/24 04:21 HPI - Abdominal Pain General: Chief Complaint: Abdominal Pain Stated Complaint: ABD Pain\Back Pain\Right Side Pain Time Seen by Provider: 10/17/24 03:41 History of Present Illness: Patient planes of left-sided back pain/flank pain that radiates to her left lower abdomen for few days. No nausea or vomiting. No dysuria. No altered mental status. No chest pain. No fevers. Related Data Home Medications ?Medication ?Instructions ?Recorded ?Confirmed allopurinol 100 mg tablet 100 mg PO BEDTIME 09/08/19 09/04/24 amitriptyline 25 mg tablet 25 mg PO BEDTIME 09/08/19 09/04/24 acetaminophen 650 mg 1,300 mg PO BID Pain 07/30/20 09/04/24 tablet,extended release (Tylenol Arthritis Pain) gabapentin 300 mg capsule 300 mg PO TID 05/23/21 09/04/24 insulin glargine 100 unit/mL (3 25 unit SUBCUT DAILY 07/12/24 09/04/24 mL) subcutaneous pen (Lantus Solostar U-100 Insulin) levothyroxine 75 mcg tablet 75 mcg PO DAILY 07/12/24 09/04/24 empagliflozin 25 mg tablet 25 mg PO DAILY 08/15/24 09/04/24 (Jardiance) Lactobacillus rhamnosus GG 10 1 cap PO DAILY 08/24/24 09/04/24 billion cell capsule (Culturelle) baclofen 10 mg tablet 10 mg PO DAILY 09/04/24 09/04/24 Previous Rx's ?Medication ?Instructions ?Recorded nitroglycerin 0.4 mg sublingual 0.4 mg sublingual Q5M PRN chest 04/28/21 tablet (Nitrostat) pain #25 tabs metoprolol tartrate 25 mg tablet 25 mg PO BID@0900,2100 #120 tabs 11/27/22 atorvastatin 80 mg tablet 80 mg PO BEDTIME #90 tabs 11/10/23 albuterol sulfate 90 mcg/actuation 2 inh inhalation Q4H PRN shortness 05/21/24 aerosol inhaler of breath or wheezing #6.7 grams ticagrelor 60 mg tablet 60 mg PO BID #180 tabs 08/17/24 pantoprazole 40 mg tablet,delayed 40 mg PO BID 90 days #180 tabs 08/31/24 release cefdinir 300 mg capsule 300 mg PO BID #14 caps 10/17/24 Allergies Allergy/AdvReac Type Severity Reaction Status Date / Time codeine Allergy Unknown Unknown Verified 10/17/24 03:41 tetanus and diphtheria Allergy Unknown Verified 10/17/24 03:41 toxoids Tetanus Vaccines and Toxoid Allergy Unknown Verified 10/17/24 03:41 Review of Systems Narrative: Constitutional symptoms: Negative except as documented in HPI. Skin symptoms: Negative except as documented in HPI. Eye symptoms: Negative except as documented in HPI. ENMT symptoms: Negative except as documented in HPI. Respiratory symptoms: Negative except as documented in HPI. Cardiovascular symptoms: Negative except as documented in HPI. Gastrointestinal symptoms: Negative except as documented in HPI. Genitourinary symptoms: Negative except as documented in HPI. Musculoskeletal symptoms: Negative except as documented in HPI. Neurologic symptoms: Negative except as documented in HPI. Psychiatric symptoms: Negative except as documented in HPI. Endocrine symptoms: Negative except as documented in HPI. 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 x2 during hospitalization with likely mechanism of plavix resistance ST elevation myocardial infarction (STEMI) History of [place] (myocardial infarction) Coronary artery disease PAD (peripheral artery disease) HTN (hypertension) Surgical History H/O esophagogastroduodenoscopy (12/19/20) Gastric erosions Status post colonoscopy (12/19/20) Extensive diverticulosis H/O section S/P breast biopsy S/P PTCA (percutaneous transluminal coronary angioplasty) S/P appendectomy History of cholecystectomy S/P femoral-popliteal bypass surgery Family History Other CAD (coronary artery disease) Cancer Diabetes Hypertension Stroke Social History Smoking and tobacco/nicotine status: former use of tobacco/nicotine (quit 2013) Quit status (tobacco/nicotine): has quit using Year quit tobacco: 2016 Alcohol intake: never Substance/Drug Use: never Physical Exam Narrative: EXAM NARRATIVE: General: Alert, no acute distress. Skin: Warm, dry. Head: Normocephalic, atraumatic. Neck: Supple, trachea midline. Eye: Extraocular movements are intact. Ears, nose, mouth and throat: mucosa moist. Cardiovascular: Regular, Normal peripheral perfusion. Respiratory: Lungs are clear to auscultation, respirations are non-labored, breath sounds are equal, Symmetrical chest wall expansion. Gastrointestinal: Soft, Nontender, Non distended Musculoskeletal: Normal ROM, no deformity. Neurological: Alert and oriented, No focal neurological deficit observed. Psychiatric: Cooperative, appropriate mood & affect. Course Vital Signs: Vital signs: Vital Signs Temperature 97.5 F L 10/17/24 03:36 Pulse Rate 75 10/17/24 07:10 Respiratory Rate 20 H 10/17/24 03:36 Blood Pressure 127/67 10/17/24 07:10 Pulse Oximetry 99 10/17/24 07:10 Oxygen Delivery Me thod Nasal Cannula 10/17/24 03:36 Oxygen Flow Rate 3 10/17/24 03:36 MDM - Abdominal Pain Medical Decision Making Medical decision making: Differential diagnosis for a patient who presents with left lower quadrant abdominal pain including but not limited to and based on the above HPI, review of systems and physical exam: Diverticulitis. Constipation Ureterolithiasis. Urinary tract infection. colitis. small bowel obstruction. Crohn's flare. Orders placed to evaluate differential diagnosis based on the above differential, HPI and physical exam Lab Review: Laboratory results were reviewed and interpreted by myself the emergency room physician. I reviewed the patient's medical record. Reexamination: Lab Data 10/17/24 04:24 10/17/24 04:24 Labs/Radiology: Radiology Impressions Abdomen/Pelvis CT 10/17/24 04:32 IMPRESSION: 1. Pancolonic diverticulosis but no evidence of diverticulitis. There is mild rectosigmoid constipation. 2. Mild urinary bladder wall thickening. Consider cystitis versus underdistention. 3. Mild thickening of the distal stomach and duodenal bulb versus underdistention. Gastritis not excluded. Laboratory Results WBC 8.79 10^3/uL (3.29-11.43) 10/17/24 04:24 RBC 4.15 10^6/uL (3.85-5.65) 10/17/24 04:24 Hgb 8.90 g/dL (11.27-16.99) L 10/17/24 04:24 Hct 32.9 % (36-47) L 10/17/24 04:24 MCV 79.3 fl (85-98) L 10/17/24 04:24 MCH 21.4 pg (27-33) L 10/17/24 04:24 MCHC 27.1 g/dL (30-55) L 10/17/24 04:24 RDW 17.6 % (12.1-15.1) H 10/17/24 04:24 Plt Count 281 10^3/cmm (157-399) 10/17/24 04:24 MPV 10.3 fL (7.4-10.4) 10/17/24 04:24 Neut % (Auto) 71.8 % 10/17/24 04:24 Lymph % (Auto) 14.9 % 10/17/24 04:24 Carver % (Auto) 9.4 % 10/17/24 04:24 Eos % (Auto) 2.8 % 10/17/24 04:24 Baso % (Auto) 0.8 % 10/17/24 04:24 Neut # (Auto) 6.30 10^3/uL (1.8-7.7) 10/17/24 04:24 Lymph # (Auto) 1.3 10^3/uL (0.8-4.8) 10/17/24 04:24 Carver # (Auto) 0.8 10^3/uL (0.2-0.9) 10/17/24 04:24 Eos # (Auto) 0.3 10^3/uL (0.0-0.8) 10/17/24 04:24 Baso # (Auto) 0.1 10^3/uL (0.0-0.1) 10/17/24 04:24 Nucleated RBC % (auto) 0 % 10/17/24 04:24 Nucleated RBCs # 0.0 /100WBC 10/17/24 04:24 Sodium 143 mmol/L (136-145) 10/17/24 04:24 Potassium 3.7 mmol/L (3.5-5.1) 10/17/24 04:24 Chloride 108 mmol/L (98-107) H 10/17/24 04:24 Carbon Dioxide 20 mmol/L (22-29) L 10/17/24 04:24 Anion Gap 18.7 (5-19) 10/17/24 04:24 BUN 14 mg/dL (8-23) 10/17/24 04:24 Creatinine 0.9 mg/dL (0.5-0.9) 10/17/24 04:24 GFR Calculation Not Reportable 10/17/24 04:24 Glucose 117 mg/dL (65-115) H 10/17/24 04:24 Calculated Osmolality 298 mOsm/kg (285-295) H 10/17/24 04:24 Calcium 8.7 mg/dL (8.5-10.5) 10/17/24 04:24 Total Bilirubin 0.9 mg/dL (0.15-1.2) 10/17/24 04:24 AST 24 U/L (0-32) 10/17/24 04:24 ALT 14 U/L (0-33) 10/17/24 04:24 Alkaline Phosphatase 79 U/L (35-105) 10/17/24 04:24 C-Reactive Protein 3.0 mg/L (0.0-4.9) 10/17/24 04:24 Total Protein 6.6 g/dL (6.6-8.7) 10/17/24 04:24 Albumin 3.5 g/dL (3.5-5.2) 10/17/24 04:24 Globulin 3.1 g/dL (1.3-4.6) 10/17/24 04:24 Urine Color Yellow (Yellow) 10/17/24 03:55 Urine Appearance Cloudy (CLEAR) A 10/17/24 03:55 Urine pH 5 (5-7) 10/17/24 03:55 Ur Specific [place] 1.015 (1.005-1.030) 10/17/24 03:55 Urine Protein Neg (Negative) 10/17/24 03:55 Urine Glucose (UA) 4+ (Normal) H 10/17/24 03:55 Urine Ketones Negative (Negative) 10/17/24 03:55 Urine Blood 2+ (Negative) A 10/17/24 03:55 Urine Nitrate Negative (Negative) 10/17/24 03:55 Urine Bilirubin Neg (Negative) 10/17/24 03:55 Urine Urobilinogen Neg mg/dL (Negative) 10/17/24 03:55 Ur Leukocyte Esterase 2+ (Negative) A 10/17/24 03:55 Urine RBC >100 /hpf (0-2) H 10/17/24 03:55 Urine WBC 51-100 /hpf (0-5) H 10/17/24 03:55 Ur Squamous Epith Cells 0-5 /hpf (0-5) 10/17/24 03:55 Amorphous Sediment Not Reportable 10/17/24 03:55 Urine Bacteria 4+ /hpf (NONE) H 10/17/24 03:55 Hyaline Casts 4.95 /lpf 10/17/24 03:55 Urine Yeast 4+ /hpf H 10/17/24 03:55 Discharge Plan Discharge Patient Disposition: Home Clinical Impression: UTI (urinary tract infection) Condition: Stable Prescriptions: New cefdinir 300 mg capsule 300 mg PO BID Qty: 14 0RF No Action acetaminophen [Tylenol Arthritis Pain] 650 mg tablet extended release 1,300 mg PO BID allopurinol 100 mg tablet 100 mg PO BEDTIME amitriptyline 25 mg tablet 25 mg PO BEDTIME pantoprazole 40 mg tablet,delayed release (DR/EC) 40 mg PO BID 90 Days Qty: 180 0RF Culturelle 10 billion cell capsule 1 cap PO DAILY nitroglycerin [Nitrostat] 0.4 mg tablet, sublingual 0.4 mg sublingual Q5M PRN (Reason: chest pain) Qty: 25 4RF Rx Instructions: DO NOT EXCEED 3 DOSES PER EPISODE metoprolol tartrate 25 mg tablet 25 mg PO BID@0900,2100 Qty: 120 3RF atorvastatin 80 mg tablet 80 mg PO BEDTIME Qty: 90 3RF ticagrelor 60 mg tablet 60 mg PO BID Qty: 180 1RF gabapentin 300 mg capsule 300 mg PO TID albuterol sulfate 90 mcg/actuation HFA aerosol inhaler 2 inh INHALATION Q4H PRN (Reason: shortness of breath or wheezing) Qty: 6.7 1RF levothyroxine 75 mcg tablet 75 mcg PO DAILY insulin glargine [Lantus Solostar U-100 Insulin] 100 unit/mL (3 mL) insulin pen 25 unit SUBCUT DAILY Jardiance 25 mg tablet 25 mg PO DAILY baclofen 10 mg tablet 10 mg PO DAILY Discharge Orders: Discharge ED (Routine); Ordered 10/17/24 Ordered By: Héctor Marsh Referrals: Jenniffer Jenkins MD [Primary Care Provider] - Discharge Diet: Usual diet Discharge Activity: Resume usual activity Patient Instructions: Opioid Safety, Pain Management Activity Restrictions/Additional Instructions: Thank you for choosing [facility] for your healthcare needs today. It is very important that you follow up as instructed or that you return to the Emergency Department should you have concerns or if your condition changes or worsens in any way. You were seen in the emergency room with complaints of side pain and abdominal pain. There is no evidence of kidney stones on the scan however you did have signs of a bladder infection. Your white count was normal your hemoglobin is mildly low however it is in the same range it has been in the past. Recommend you start on oral antibiotics 1 pill twice a day for 7 days. You should follow-up with your doctor within the next week to recheck your hemoglobin. Return if you have uncontrolled fever or pain or other worsening symptoms Print Language: Samoan Sign Out Sign Out Data: Patient Sign Out occurred on 10/17/24 at 06:27. Patient's care was discussed, and care was transferred from Miroslava Arias MD to Héctor Marsh DO. 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[employer] Documented by User: Héctor Marsh DO 10/17/24 14:56 HPI - Abdominal Pain General: Chief Complaint: Abdominal Pain Stated Complaint: ABD Pain\Back Pain\Right Side Pain Time Seen by Provider: 10/17/24 03:41 Related Data Home Medications ?Medication ?Instructions ?Recorded ?Confirmed allopurinol 100 mg tablet 100 mg PO BEDTIME 09/08/19 09/04/24 amitriptyline 25 mg tablet 25 mg PO BEDTIME 09/08/19 09/04/24 acetaminophen 650 mg 1,300 mg PO BID Pain 07/30/20 09/04/24 tablet,extended release (Tylenol Arthritis Pain) gabapentin 300 mg capsule 300 mg PO TID 05/23/21 09/04/24 insulin glargine 100 unit/mL (3 25 unit SUBCUT DAILY 07/12/24 09/04/24 mL) subcutaneous pen (Lantus Solostar U-100 Insulin) levothyroxine 75 mcg tablet 75 mcg PO DAILY 07/12/24 09/04/24 empagliflozin 25 mg tablet 25 mg PO DAILY 08/15/24 09/04/24 (Jardiance) Lactobacillus rhamnosus GG 10 1 cap PO DAILY 08/24/24 09/04/24 billion cell capsule (Culturelle) baclofen 10 mg tablet 10 mg PO DAILY 09/04/24 09/04/24 Previous Rx's ?Medication ?Instructions ?Recorded nitroglycerin 0.4 mg sublingual 0.4 mg sublingual Q5M PRN chest 04/28/21 tablet (Nitrostat) pain #25 tabs metoprolol tartrate 25 mg tablet 25 mg PO BID@0900,2100 #120 tabs 11/27/22 atorvastatin 80 mg tablet 80 mg PO BEDTIME #90 tabs 11/10/23 albuterol sulfate 90 mcg/actuation 2 inh inhalation Q4H PRN shortness 05/21/24 aerosol inhaler of breath or wheezing #6.7 grams ticagrelor 60 mg tablet 60 mg PO BID #180 tabs 08/17/24 pantoprazole 40 mg tablet,delayed 40 mg PO BID 90 days #180 tabs 08/31/24 release cefdinir 300 mg capsule 300 mg PO BID #14 caps 10/17/24 Allergies Allergy/AdvReac Type Severity Reaction Status Date / Time codeine Allergy Unknown Unknown Verified 10/17/24 03:41 tetanus and diphtheria Allergy Unknown Verified 10/17/24 03:41 toxoids Tetanus Vaccines and Toxoid Allergy Unknown Verified 10/17/24 03:41 PFS ED PFSH: Medical History ST elevation (STEMI) myocardial infarction Diabetes Melena Chest pain Coronary stent thrombosis Had stent thrombosis x2 during hospitalization with likely mechanism of plavix resistance ST elevation myocardial infarction (STEMI) History of [place] (myocardial infarction) Coronary artery disease PAD (peripheral artery disease) HTN (hypertension) Surgical History H/O esophagogastroduodenoscopy (12/19/20) Gastric erosions Status post colonoscopy (12/19/20) Extensive diverticulosis H/O section S/P breast biopsy S/P PTCA (percutaneous transluminal coronary angioplasty) S/P appendectomy History of cholecystectomy S/P femoral-popliteal bypass surgery Family History Other CAD (coronary artery disease) Cancer Diabetes Hypertension Stroke Social History Smoking and tobacco/nicotine status: former use of tobacco/nicotine (quit 2013) Quit status (tobacco/nicotine): has quit using Year quit tobacco: 2015 Alcohol intake: never Substance/Drug Use: never Course Vital Signs: Vital signs: Vital Signs Temperature 97.5 F L 10/17/24 03:36 Pulse Rate 75 10/17/24 07:10 Respiratory Rate 20 H 10/17/24 03:36 Blood Pressure 127/67 10/17/24 07:10 Pulse Oximetry 99 10/17/24 07:10 Oxygen Delivery Me thod Nasal Cannula 10/17/24 03:36 Oxygen Flow Rate 3 10/17/24 03:36 MDM - Abdominal Pain Medical Decision Making Medical decision making: Differential diagnosis for a patient who presents with left lower quadrant abdominal pain including but not limited to and based on the above HPI, review of systems and physical exam: Diverticulitis. Constipation Ureterolithiasis. Urinary tract infection. colitis. small bowel obstruction. Crohn's flare. Orders placed to evaluate differential diagnosis based on the above differential, HPI and physical exam Lab Review: Laboratory results were reviewed and interpreted by myself the emergency room physician. I reviewed the patient's medical record. Reexamination: Care assumed at change of shift. Patient stable. No leukocytosis does have a cystitis CT did not show any obstructive uropathy use or abscess. Will discharge home treat as outpatient with cefdinir follow-up with primary care Medical Records I reviewed the patient's medical records. Lab Data I reviewed the patient's lab results. 10/17/24 04:24 10/17/24 04:24 Labs/Radiology: Radiology Impressions Abdomen/Pelvis CT 10/17/24 04:32 IMPRESSION: 1. Pancolonic diverticulosis but no evidence of diverticulitis. There is mild rectosigmoid constipation. 2. Mild urinary bladder wall thickening. Consider cystitis versus underdistention. 3. Mild thickening of the distal stomach and duodenal bulb versus underdistention. Gastritis not excluded. Laboratory Results WBC 8.79 10^3/uL (3.29-11.43) 10/17/24 04:24 RBC 4.15 10^6/uL (3.85-5.65) 10/17/24 04:24 Hgb 8.90 g/dL (11.27-16.99) L 10/17/24 04:24 Hct 32.9 % (36-47) L 10/17/24 04:24 MCV 79.3 fl (85-98) L 10/17/24 04:24 MCH 21.4 pg (27-33) L 10/17/24 04:24 MCHC 27.1 g/dL (30-55) L 10/17/24 04:24 RDW 17.6 % (12.1-15.1) H 10/17/24 04:24 Plt Count 281 10^3/cmm (157-399) 10/17/24 04:24 MPV 10.3 fL (7.4-10.4) 10/17/24 04:24 Neut % (Auto) 71.8 % 10/17/24 04:24 Lymph % (Auto) 14.9 % 10/17/24 04:24 Carver % (Auto) 9.4 % 10/17/24 04:24 Eos % (Auto) 2.8 % 10/17/24 04:24 Baso % (Auto) 0.8 % 10/17/24 04:24 Neut # (Auto) 6.30 10^3/uL (1.8-7.7) 10/17/24 04:24 Lymph # (Auto) 1.3 10^3/uL (0.8-4.8) 10/17/24 04:24 [place] # (Auto) 0.8 10^3/uL (0.2-0.9) 10/17/24 04:24 Eos # (Auto) 0.3 10^3/uL (0.0-0.8) 10/17/24 04:24 Baso # (Auto) 0.1 10^3/uL (0.0-0.1) 10/17/24 04:24 Nucleated RBC % (auto) 0 % 10/17/24 04:24 Nucleated RBCs # 0.0 /100WBC 10/17/24 04:24 Sodium 143 mmol/L (136-145) 10/17/24 04:24 Potassium 3.7 mmol/L (3.5-5.1) 10/17/24 04:24 Chloride 108 mmol/L (98-107) H 10/17/24 04:24 Carbon Dioxide 20 mmol/L (22-29) L 10/17/24 04:24 Anion Gap 18.7 (5-19) 10/17/24 04:24 BUN 14 mg/dL (8-23) 10/17/24 04:24 Creatinine 0.9 mg/dL (0.5-0.9) 10/17/24 04:24 GFR Calculation Not Reportable 10/17/24 04:24 Glucose 117 mg/dL (65-115) H 10/17/24 04:24 Calculated Osmolality 298 mOsm/kg (285-295) H 10/17/24 04:24 Calcium 8.7 mg/dL (8.5-10.5) 10/17/24 04:24 Total Bilirubin 0.9 mg/dL (0.15-1.2) 10/17/24 04:24 AST 24 U/L (0-32) 10/17/24 04:24 ALT 14 U/L (0-33) 10/17/24 04:24 Alkaline Phosphatase 79 U/L (35-105) 10/17/24 04:24 C-Reactive Protein 3.0 mg/L (0.0-4.9) 10/17/24 04:24 Total Protein 6.6 g/dL (6.6-8.7) 10/17/24 04:24 Albumin 3.5 g/dL (3.5-5.2) 10/17/24 04:24 Globulin 3.1 g/dL (1.3-4.6) 10/17/24 04:24 Urine Color Yellow (Yellow) 10/17/24 03:55 Urine Appearance Cloudy (CLEAR) A 10/17/24 03:55 Urine pH 5 (5-7) 10/17/24 03:55 Ur Specific [place] 1.015 (1.005-1.030) 10/17/24 03:55 Urine Protein Neg (Negative) 10/17/24 03:55 Urine Glucose (UA) 4+ (Normal) H 10/17/24 03:55 Urine Ketones Negative (Negative) 10/17/24 03:55 Urine Blood 2+ (Negative) A 10/17/24 03:55 Urine Nitrate Negative (Negative) 10/17/24 03:55 Urine Bilirubin Neg (Negative) 10/17/24 03:55 Urine Urobilinogen Neg mg/dL (Negative) 10/17/24 03:55 Ur Leukocyte Esterase 2+ (Negative) A 10/17/24 03:55 Urine RBC >100 /hpf (0-2) H 10/17/24 03:55 Urine WBC 51-100 /hpf (0-5) H 10/17/24 03:55 Ur Squamous Epith Cells 0-5 /hpf (0-5) 10/17/24 03:55 Amorphous Sediment Not Reportable 10/17/24 03:55 Urine Bacteria 4+ /hpf (NONE) H 10/17/24 03:55 Hyaline Casts 4.95 /lpf 10/17/24 03:55 Urine Yeast 4+ /hpf H 10/17/24 03:55 All radiology interpretation(s) finalized by discharge Discharge Plan Discharge Patient Disposition: Home Clinical Impression: UTI (urinary tract infection) Condition: Stable Prescriptions: New cefdinir 300 mg capsule 300 mg PO BID Qty: 14 0RF No Action acetaminophen [Tylenol Arthritis Pain] 650 mg tablet extended release 1,300 mg PO BID allopurinol 100 mg tablet 100 mg PO BEDTIME amitriptyline 25 mg tablet 25 mg PO BEDTIME pantoprazole 40 mg tablet,delayed release (DR/EC) 40 mg PO BID 90 Days Qty: 180 0RF Culturelle 10 billion cell capsule 1 cap PO DAILY nitroglycerin [Nitrostat] 0.4 mg tablet, sublingual 0.4 mg sublingual Q5M PRN (Reason: chest pain) Qty: 25 4RF Rx Instructions: DO NOT EXCEED 3 DOSES PER EPISODE metoprolol tartrate 25 mg tablet 25 mg PO BID@0900,2100 Qty: 120 3RF atorvastatin 80 mg tablet 80 mg PO BEDTIME Qty: 90 3RF ticagrelor 60 mg tablet 60 mg PO BID Qty: 180 1RF gabapentin 300 mg capsule 300 mg PO TID albuterol sulfate 90 mcg/actuation HFA aerosol inhaler 2 inh INHALATION Q4H PRN (Reason: shortness of breath or wheezing) Qty: 6.7 1RF levothyroxine 75 mcg tablet 75 mcg PO DAILY insulin glargine [Lantus Solostar U-100 Insulin] 100 unit/mL (3 mL) insulin pen 25 unit SUBCUT DAILY Jardiance 25 mg tablet 25 mg PO DAILY baclofen 10 mg tablet 10 mg PO DAILY Discharge Orders: Discharge ED (Routine); Ordered 10/17/24 Ordered By: Héctor Marsh Referrals: Jenniffer Jenkins MD [Primary Care Provider] - Discharge Diet: Usual diet Discharge Activity: Resume usual activity Patient Instructions: Opioid Safety, Pain Management Activity Restrictions/Additional Instructions: Thank you for choosing [facility] for your healthcare needs today. It is very important that you follow up as instructed or that you return to the Emergency Department should you have concerns or if your condition changes or worsens in any way. You were seen in the emergency room with complaints of side pain and abdominal pain. There is no evidence of kidney stones on the scan however you did have signs of a bladder infection. Your white count was normal your hemoglobin is mildly low however it is in the same range it has been in the past. Recommend you start on oral antibiotics 1 pill twice a day for 7 days. You should follow-up with your doctor within the next week to recheck your hemoglobin. Return if you have uncontrolled fever or pain or other worsening symptoms Print Language: Samoan Sign Out Sign Out Data: Patient Sign Out occurred on 10/17/24 at 06:27. Patient's care was discussed, and care was transferred from Miroslava Arias MD to Héctor Marsh DO. 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
[2024-10-17 04:13] LABS: Bacteria Urine 4+ /hpf; Hyaline Casts Urine 4.95 /lpf; RBC Urine >100 /hpf (0-2); Squamous Epithelial Cell Urine 0-5 /hpf (0-5); WBC Urine 51-100 /hpf (0-5)
[2024-10-17 04:30] VITALS: BP 110/59; PULSE 73; O2SAT 99
[2024-10-17 04:30] LABS: Add Urine Culture? Yes; Bilirubin Urine Neg (Negative); Blood Urine 2+ (Negative); Glucose Urine UA 4+ (Normal); Ketones Urine Negative (Negative); Leukocyte Esterase Urine 2+ (Negative); Nitrate Urine Negative (Negative); Protein Urine Neg (Negative); Specific Gravity, Urine 1.015 (1.005-1.030); UA Slide Review UA Slide Review Perf; Urine Appearance Cloudy (CLEAR); Urine Color Yellow (Yellow); Urobilinogen Urine Neg (Negative); pH Urine 5 (5-7)
[2024-10-17 04:31] LABS: Basophils # 0.1 10^3/uL (0.0-0.1); Basophils % 0.8 %; Eosinophils # 0.3 10^3/uL (0.0-0.8); Eosinophils % 2.8 %; Hematocrit 32.9 % (36-47); Lymphocytes # 1.3 10^3/uL (0.8-4.8); Lymphocytes % 14.9 %; Mean Corpuscular HGB Conc 27.1 g/dL (30-55); Mean Corpuscular Hemoglobin 21.4 pg (27-33); Mean Corpuscular Volume 79.3 fl (85-98); Mean Platelet Volume 10.3 fL (7.4-10.4); Monocytes # 0.8 10^3/uL (0.2-0.9); Monocytes % 9.4 %; Neutrophils % 71.8 %; Nucleated Red Blood Cells % 0 %; Platelet Count 281 10^3/cmm (157-399); Red Blood Count 4.15 10^6/uL (3.85-5.65); Red Cell Distribution Width 17.6 % (12.1-15.1); White Blood Count 8.79 10^3/uL (3.29-11.43)
--- NOTE | 2024-10-17 04:32 | CTR_ITS ---
PROCEDURE INFORMATION: Exam: CT Abdomen And Pelvis Without Contrast Exam date and time: 10/17/2024 4:52 AM Age: 79 years old Clinical indication: Abdominal pain; Flank; Lower; Additional info: Flank pain TECHNIQUE: Imaging protocol: Computed tomography of the abdomen and pelvis without contrast. Radiation optimization: All CT scans at this facility use at least one of these dose optimization techniques: automated exposure control; mA and/or kV adjustment per patient size (includes targeted exams where dose is matched to clinical indication); or iterative reconstruction. COMPARISON: CT abdomen pelvis w con* [id number] 08/24/2024 8:26 PM RADIATION DOSE METRICS: Total DLP (mGy-cm): 553.37 FINDINGS: Lungs: Mild chronic appearing interstitial changes of the lung bases and mild basilar bronchiectasis. Liver: The liver is normal in appearance. No focal liver mass or intrahepatic biliary dilatation. Gallbladder and biliary ducts: Status post cholecystectomy. Pancreas: The pancreas is normal in appearance. No evidence of pancreatic ductal dilatation. Spleen: The spleen is normal in appearance. Adrenal glands: The adrenal glands are normal in appearance. Kidneys and ureters: Normal. No hydronephrosis. Stomach and bowel: Mild thickening of the distal stomach and duodenal bulb versus underdistention. Consider gastritis.The small bowel loops are not thickened and are nondilated. There is pancolonic diverticulosis but no evidence of diverticulitis. There is rectosigmoid constipation. Appendix: Status post appendectomy. Intraperitoneal space: Unremarkable. No free air. No significant fluid collection. 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 There is a fem-fem bypass which has been previously reported as chronically occluded. Lymph nodes: Unremarkable. No enlarged lymph nodes. Urinary bladder: Mild urinary bladder wall thickening. Consider cystitis versus underdistention. Reproductive: Stable 3.1 cm right ovarian/adnexal cyst. Bones/joints: There are multilevel chronic degenerative changes throughout the visualized spine, similar in appearance to prior imaging. No acute osseous lesions identified. Soft tissues: Small fat containing periumbilical hernia. CT/CT kidney stone [id number] IMPRESSION: 1. Pancolonic diverticulosis but no evidence of diverticulitis. There is mild rectosigmoid constipation. 2. Mild urinary bladder wall thickening. Consider cystitis versus underdistention. 3. Mild thickening of the distal stomach and duodenal bulb versus underdistention. Gastritis not excluded.
[2024-10-17 04:48] LABS: Alanine Aminotransferase 14 U/L (0-33); Albumin Level 3.5 g/dL (3.5-5.2); Alkaline Phosphatase 79 U/L (35-105); Anion Gap 18.7 (5-19); Aspartate Amino Transferase 24 U/L (0-32); Blood Urea Nitrogen 14 mg/dL (8-23); Calcium 8.7 mg/dL (8.5-10.5); Carbon Dioxide 20 mmol/L (22-29); Chloride 108 mmol/L (98-107); Creatinine Clr Calc Pharmacy 47.8777; Globulin 3.1 g/dL (1.3-4.6); Glucose 117 mg/dL (65-115); Osmolality Calculated 298 mOsm/kg (285-295); Potassium 3.7 mmol/L (3.5-5.1); Sodium 143 mmol/L (136-145); Total Bilirubin 0.9 mg/dL (0.15-1.2); Total Protein 6.6 g/dL (6.6-8.7)
[2024-10-17] MEDS: cefTRIAXone 1,000 mg SDV 1000 MG IVP (05:00)
[2024-10-17] MEDS: acetaminophen 1,000 MG/100 ML PIGGYBACK 400 MG IV (05:08)
[2024-10-17 05:30] VITALS: BP 129/58; PULSE 73; O2SAT 93
[2024-10-17 06:00] VITALS: BP 128/61; PULSE 75; O2SAT 97
[2024-10-17 06:30] VITALS: BP 127/52; PULSE 79; O2SAT 95
[2024-10-17 07:10] VITALS: BP 127/67; PULSE 75; O2SAT 99
== END 2024-10-17 07:15 | disposition home or self-care (01) ==
PROVIDERS: Emergency Medicine; Emergency Provider Family Medicine; PCP Internal Medicine
DX: N39.0 Urinary tract infection, site not specified (principal); Z79.4 Long term (current) use of insulin; Z87.891 Personal history of nicotine dependence; E11.9 Type 2 diabetes mellitus without complications; I25.10 Atherosclerotic heart disease of native coronary artery without angina pectoris; I10 Essential (primary) hypertension
CPT/HCPCS: 36415; 74176; 80053; 81001; 85025; 86140; 87086; 96365; 96375; 99285; J0131; J0696

== ENCOUNTER 2024-11-23 11:02 | Observation (INO) | payer MEDICARE, SELFPAY ==
[2024-11-23] VITALS (15 sets, daily range): BP systolic 102–158; BP diastolic 48–88; PULSE 71–121; RESP 16–26; TEMP 36.3–37.3; O2SAT 91–98; BMI 25.0
--- NOTE | 2024-11-23 11:34 | ED_ITS ---
HPI - Abdominal Pain 2 General: Chief Complaint: Abdominal Pain Stated Complaint: abd pain Time Seen by Provider: 11/23/24 11:32 History of Present Illness: 79-year-old female presents emergency ro om complaining of upper abdominal pain that began last night associated with nausea. She denies hematochezia melena hematemesis coffee-ground dysuria urgency or frequency has been very nauseated. She is mildly tachycardic as well. No chest discomfort. Associated Symptoms: Reports nausea; Denies chills, coffee ground emesis, dysuria, fever(s), hematochezia, hematemesis, melena and vomiting Related Data Home Medications ?Medication ?Instructions ?Recorded ?Confirmed allopurinol 100 mg tablet 100 mg PO BEDTIME 09/08/19 0 11/28/24 amitriptyline 25 mg tablet 25 mg PO BEDTIME 09/08/19 0 11/28/24 acetaminophen 650 mg 1,300 mg PO BID Pain 1 11/28/24 tablet,extended release (Tylenol Arthritis Pain) gabapentin 300 mg capsule 300 mg PO TID 05/23/2111/28 levothyroxine 75 mcg tablet 75 mcg PO DAILY 07/12/24 0 11/28/24 Lactobacillus rhamnosus GG 10 1 cap PO DAILY 08/24/24 11/28/24 billion cell capsule (Culturelle) baclofen 10 mg tablet 5 mg PO BID 11/23/24 5 tramadol 50 mg tablet 50 mg PO Q8H PRN Pain 11/28/24 Previous Rx's ?Medication ?Instructions ?Recorded metoprolol tartrate 25 mg tablet 25 mg PO BID@0900,210 0 #120 tabs 11/27/22 atorvastatin 80 mg tablet 80 mg PO BEDTIME #90 tabs albuterol sulfate 90 mcg/actuation 2 inh inhalation Q4 H PRN shortness 05/21/24 aerosol inhaler of breath or wheezing #6.7 g viv insulin glargine 100 unit/mL (3 10 unit (0.1 mL) SUBCU T DAILY #15 11/25/24 mL) subcutaneous pen (Lantus mL Solostar U-100 Insulin) pantoprazole 40 mg tablet,delayed 40 mg PO BID 30 days #60 tabs 11/25/24 release sucralfate 1 gram tablet (Carafate) 1 g PO BID 4 weeks #56 tabs 11/25/24 Allergies Allergy/AdvReac Type Severity Reaction Status Date / Time codeine Allergy Unknown Unknown Verified 11/28/24 16:04 tetanus and diphtheria Allergy Unknown Verified 11/28/24 16:04 toxoids Tetanus Vaccines and Toxoid Allergy Unknown Verified 11/28/24 16:04 Review of Systems 2 Const: Denies: fever(s) or chills Card: Denies: chest pain Resp: Denies: dyspnea GI: Reports: abdominal pain and nausea; Denies: vomiting, hematemesis, coffee ground emesis, hematochezia or melena : Denies: dysuria, urinary frequency or urinary urgency Musc: Denies: neck pain or back pain Skin/Breast: Denies: rash PFSH ED 2 PFSH: Medical History (Updated 11/30/24 @ 11:26 by Héctor Marsh DO) Coronary artery disease PAD (peripheral artery disease) HTN (hypertension) ST elevation (STEMI) myocardial infarction Diabetes Melena Chest pain Coronary stent thrombosis Had stent thrombosis x2 during hospitalization with likely mechanism of plavix resistance ST elevation myocardial infarction (STEMI) History of [place] (myocardial infarction) Surgical History H/O esophagogastroduodenoscopy (12/19/20) Gastric erosions Status post colonoscopy (12/19/20) Extensive diverticulosis H/O section S/P breast biopsy S/P PTCA (percutaneous transluminal coronary angioplasty) S/P appendectomy History of cholecystectomy S/P femoral-popliteal bypass surgery Family History Other CAD (coronary artery disease) Cancer Diabetes Hypertension Stroke Social History Smoking and tobacco/nicotine status: former use of tobacco/nicotine (quit 2013) Quit status (tobacco/nicotine): has quit using Year quit tobacco: 2016 Alcohol intake: never Substance/Drug Use: never Physical Exam 2 Const: GENERAL APPEARANCE: cooperative ORIENTATION/CONSCIOUSNESS: Yes awake, Yes oriented to person, Yes oriented to place and Yes oriented to time HENMT: COMMON NORMALS: normocephalic, atraumatic and hearing grossly normal bilaterally HEAD & SCALP: normocephalic and atraumatic Resp: COMMON NORMALS: normal respiratory effort, No retractions, No use of accessory muscles and clear to auscultation bilaterally AUSCULTATION: clear to auscultation bilaterally Cardio: COMMON NORMALS: regular rate, regular rhythm and No murmurs present (Cardio) RATE: regular rate RHYTHM: regular rhythm GI: COMMON NORMALS: Soft to palpation and No hepatosplenomegaly present A USCULTATION: Yes normoactive bowel sounds PALPATION: Yes Soft to palpation, No Tenderness to palpation present (GI), No Guarding due to palpation present (GI) and Yes No hepatosplenomegaly present Extremity: COMMON NORMALS: normal to inspection, capillary refill normal, no clubbing, cyanosis or edema, no calf tenderness and no pedal edema Neuro: SENSORIUM/ORIENTATION: Yes oriented to person, Yes oriented to place and Yes oriented to time Skin: COMMON NORMALS: no rashes or lesions noted GENERAL SKIN EXAM: no rashes or lesions noted Course 2 Vital Signs: Vital signs: Vital Signs Temperature 98.0 F 11/25/24 17:22 Pulse Rate 83 11/25/24 17:22 Respiratory Rate 19 H 11/25/24 17:22 Blood Pressure 144/60 11/25/24 17:22 Pulse Oximetry 92 11/25/24 17:22 Oxygen Delivery Me thod Nasal Cannula 11/25/24 16:21 Oxygen Flow Rate 2 11/25/24 10:12 MDM - Abdominal Pain Medical Decision Making Patient hemoglobin 7 1. Had recently restarted Brilinta CT abdomen did not show any acute abnormalities. She did have some bilateral ovarian cysts fortunately follow-up at a later date. 1 unit of blood ordered. She is also noted an incidental finding of UTI. Hemoccult positive. Medical Records I reviewed the patient's medical records. Lab Data I reviewed the patient's lab results. 11/25/24 08:41 11/25/24 03:13 Labs/Radiology: Radiology Impressions Abdomen/Pelvis CT 11/23/24 11:56 IMPRESSION: 1. Small esophageal hiatal hernia. 2. Fatty liver. 3. Prior cholecystectomy. 4. Diverticulosis. 5. Bilateral ovarian cysts larger on the RIGHT measuring 2.5 cm 6. Advanced spondylitic changes lumbar spine. 7. Tiny fat-containing umbilical hernia. Laboratory Results WBC 8.26 10^3/uL (3.29-11.43) 11/23/24 11:46 RBC 3.63 10^6/uL (3.85-5.65) L 11/23/24 11:46 Hgb 7.10 g/dL (11.27-16.99) L 11/23/24 11:46 Hct 27.0 % (36-47) L 11/23/24 11:46 MCV 74.4 fl (85-98) L 11/23/24 11:46 MCH 19.6 pg (27-33) L 11/23/24 11:46 MCHC 26.3 g/dL (30-55) L 11/23/24 11:46 RDW 17.6 % (12.1-15.1) H 11/23/24 11:46 Plt Count 325 10^3/cmm (157-399) 11/23/24 11:46 MPV 10.5 fL (7.4-10.4) H 11/23/24 11:46 Neut % (Auto) 70.9 % 11/23/24 11:46 Lymph % (Auto) 18.4 % 11/23/24 11:46 [place] % (Auto) 6.5 % 11/23/24 11:46 Eos % (Auto) 1.8 % 11/23/24 11:46 Baso % (Auto) 0.7 % 11/23/24 11:46 Neut # (Auto) 5.85 10^3/uL (1.8-7.7) 11/23/24 11:46 Lymph # (Auto) 1.5 10^3/uL (0.8-4.8) 11/23/24 11:46 [place] # (Auto) 0.5 10^3/uL (0.2-0.9) 11/23/24 11:46 Eos # (Auto) 0.2 10^3/uL (0.0-0.8) 11/23/24 11:46 Baso # (Auto) 0.1 10^3/uL (0.0-0.1) 11/23/24 11:46 Nucleated RBC % (auto) 0.8 % 11/23/24 11:46 Nucleated RBCs # 0.1 /100WBC 11/23/24 11:46 PT 14.10 SECONDS (12.1-14.9) 11/23/24 11:46 INR 1.02 (0.8-1.2) 11/23/24 11:46 APTT 35.9 SECONDS (23.9-36.7) 11/23/24 11:46 Sodium 141 mmol/L (136-145) 11/23/24 11:46 Potassium 4.1 mmol/L (3.5-5.1) 11/23/24 11:46 Chloride 107 mmol/L (98-107) 11/23/24 11:46 Carbon Dioxide 19 mmol/L (22-29) L 11/23/24 11:46 Anion Gap 19.1 (5-19) H 11/23/24 11:46 BUN 10 mg/dL (8-23) 11/23/24 11:46 Creatinine 0.7 mg/dL (0.5-0.9) 11/23/24 11:46 GFR Calculation Not Reportable 11/23/24 11:46 Glucose 148 mg/dL (65-115) H 11/23/24 11:46 Calculated Osmolality 294 mOsm/kg (285-295) 11/23/24 11:46 Lactic Acid 1.2 mmol/L (0.5-2.2) 11/23/24 15:02 Calcium 8.7 mg/dL (8.5-10.5) 11/23/24 11:46 Iron 290 ug/dL (37-145) H 11/23/24 11:46 TIBC 369 mcg/dl 11/23/24 11:46 % Saturation 78.5 % (20-50) H 11/23/24 11:46 Unsat Iron Binding 79 ug/dL (112-347) L 11/23/24 11:46 Ferritin 203 ng/mL (15-150) H 11/23/24 11:46 Total Bilirubin 1.0 mg/dL (0.15-1.2) 11/23/24 11:46 AST 20 U/L (0-32) 11/23/24 11:46 ALT 9 U/L (0-33) 11/23/24 11:46 Alkaline Phosphatase 89 U/L (35-105) 11/23/24 11:46 Troponin T Baseline 8 ng/L (0-10) 11/23/24 15:02 NT-Pro-B Natriuret Pep 912 pg/mL (0-450) H 11/23/24 11:46 Total Protein 6.6 g/dL (6.6-8.7) 11/23/24 11:46 Albumin 3.4 g/dL (3.5-5.2) L 11/23/24 11:46 Globulin 3.2 g/dL (1.3-4.6) 11/23/24 11:46 Lipase 33 U/L (13-60) 11/23/24 11:46 Urine Color Yellow (Yellow) 11/23/24 12:18 Urine Appearance Clear (CLEAR) 11/23/24 12:18 Urine pH 5.5 (5-7) 11/23/24 12:18 Ur Specific [place] 1.018 (1.005-1.030) 11/23/24 12:18 Urine Protein Negative (Negative) 11/23/24 12:18 Urine Glucose (UA) Negative (Normal) 11/23/24 12:18 Urine Ketones Trace (Negative) 11/23/24 12:18 Urine Blood Negative (Negative) 11/23/24 12:18 Urine Nitrate Negative (Negative) 11/23/24 12:18 Urine Bilirubin Negative (Negative) 11/23/24 12:18 Urine Urobilinogen 1.0 mg/dL (Negative) 11/23/24 12:18 Ur Leukocyte Esterase 2+ (Negative) A 11/23/24 12:18 Urine RBC 6-10 /hpf (0-2) 11/23/24 12:18 Urine WBC 21-50 /hpf (0-5) H 11/23/24 12:18 Ur Squamous Epith Cells 11-20 /hpf (0-5) H 11/23/24 12:18 Amorphous Sediment Not Reportable 11/23/24 12:18 Urine Bacteria 2+ /hpf (NONE) H 11/23/24 12:18 Hyaline Casts 2.87 /lpf 11/23/24 12:18 Urine Yeast 2+ /hpf H 11/23/24 12:18 Blood Type B Negative 11/23/24 13:17 Rho(D) Type Rh negative 11/23/24 13:17 Antibody Screen Negative 11/23/24 13:17 Crossmatch See Detail 11/23/24 13:17 All radiology interpretation(s) finalized by discharge Discharge Plan Discharge Patient Disposition: Admitted As Inpatient Admit Provider: Killian Bates Clinical Impression: Anemia, GI bleed, Cystitis Condition: Stable Discharge Diet: Cardiac Discharge Activity: Resume usual activity Coding Level of Care Code ED Ware Finisher for Param Carpio
--- NOTE | 2024-11-23 11:56 | CT_ITS ---
WS: [id number] CT ABDOMEN PELVIS TECHNIQUE: Contrast-enhanced CT of the abdomen and pelvis with coronal and sagittal reformatted images. CLINICAL INFORMATION: abd pain COMPARISON: 10/17/2024 DLP: 509.[address] scans at [facility] use at least one of these dose optimization techniques: automated exposure control; mA and/or kV adjustment per patient size (includes targeted exams where dose is matched to clinical indication); or iterative reconstruction. FINDINGS: Fatty liver. Prior cholecystectomy. Splenic artery calcification. Small esophageal hiatal hernia. Adrenal glands are normal. Dense vascular calcification. Dense calcification involving the celiac and SMA which are patent. Splenic artery calcification. Small esophageal hiatal hernia. Adrenal glands are normal. Normal renal parenchymal enhancement. No hydronephrosis. Tiny bilateral renal cysts. RIGHT ovarian cyst measuring 2.5 cm. Small amount of free fluid in the cul-de-sac. Sigmoid diverticulosis. Femorofemoral bypass graft. Tiny fat-containing umbilical hernia. Grade 1 anterolisthesis L4 on L5 and L5 on S1. Portal vein and splenic vein are patent. Lumbar curve convex LEFT. CT/CT abdomen pelvis w con* [id number] IMPRESSION: 1. Small esophageal hiatal hernia. 2. Fatty liver. 3. Prior cholecystectomy. 4. Diverticulosis. 5. Bilateral ovarian cysts larger on the RIGHT measuring 2.5 cm 6. Advanced spondylitic changes lumbar spine. 7. Tiny fat-containing umbilical hernia.
[2024-11-23 11:58] LABS: Basophils # 0.1 10^3/uL (0.0-0.1); Basophils % 0.7 %; Eosinophils # 0.2 10^3/uL (0.0-0.8); Eosinophils % 1.8 %; Lymphocytes # 1.5 10^3/uL (0.8-4.8); Lymphocytes % 18.4 %; Mean Corpuscular HGB Conc 26.3 g/dL (30-55); Mean Corpuscular Hemoglobin 19.6 pg (27-33); Mean Corpuscular Volume 74.4 fl (85-98); Mean Platelet Volume 10.5 fL (7.4-10.4); Monocytes # 0.5 10^3/uL (0.2-0.9); Monocytes % 6.5 %; Neutrophils # 5.85 10^3/uL (1.8-7.7); Neutrophils % 70.9 %; Nucleated Red Blood Cells # 0.1 /100WBC; Nucleated Red Blood Cells % 0.8 %; Platelet Count 325 10^3/cmm (157-399); Red Blood Count 3.63 10^6/uL (3.85-5.65); Red Cell Distribution Width 17.6 % (12.1-15.1); White Blood Count 8.26 10^3/uL (3.29-11.43)
[2024-11-23 12:10] LABS: Alanine Aminotransferase 9 U/L (0-33); Albumin Level 3.4 g/dL (3.5-5.2); Alkaline Phosphatase 89 U/L (35-105); Anion Gap 19.1 (5-19); Aspartate Amino Transferase 20 U/L (0-32); Blood Urea Nitrogen 10 mg/dL (8-23); Calcium 8.7 mg/dL (8.5-10.5); Carbon Dioxide 19 mmol/L (22-29); Chloride 107 mmol/L (98-107); Creatinine Clr Calc Pharmacy 52.5137; Globulin 3.2 g/dL (1.3-4.6); Glucose 148 mg/dL (65-115); Lipase 33 U/L (13-60); Osmolality Calculated 294 mOsm/kg (285-295); Potassium 4.1 mmol/L (3.5-5.1); Sodium 141 mmol/L (136-145); Total Protein 6.6 g/dL (6.6-8.7)
[2024-11-23] MEDS: ondansetron 2 mg/ML SDV 2 mL 4 MG IVP (12:20)
[2024-11-23] MEDS: sodium chloride 0.9% 1,000 ML 999 ML IV (12:20)
[2024-11-23 12:28] LABS: Bilirubin Urine Negative (Negative); Blood Urine Negative (Negative); Glucose Urine UA Negative (Normal); Ketones Urine Trace (Negative); Leukocyte Esterase Urine 2+ (Negative); Nitrate Urine Negative (Negative); Protein Urine Negative (Negative); Specific Gravity, Urine 1.018 (1.005-1.030); Urine Appearance Clear (CLEAR); Urine Color Yellow (Yellow); pH Urine 5.5 (5-7)
[2024-11-23 12:33] LABS: Add Urine Microscopic? YES; Bacteria Urine 2+ /hpf; Hyaline Casts Urine 2.87 /lpf; WBC Urine 21-50 /hpf (0-5)
[2024-11-23] MEDS: iohexol 350 mg/mL 500 mL Btl (per mL) IV (12:45)
[2024-11-23 12:56] LABS: Add Urine Culture? Yes; UA Slide Review UA Slide Review Perf
--- NOTE | 2024-11-23 12:57 | PC.NURSE ---
applied 2L NC to pt, states wears 2L NC baseline at home
[2024-11-23] MEDS: pantoprazole 40 mg SDV 80 MG IVP (13:46)
[2024-11-23] MEDS: cefTRIAXone 1,000 mg SDV 1000 MG IVP (13:46)
--- NOTE | 2024-11-23 14:40 | ECG_ITS ---
[facility] 2024-11[facility]23 Pat Name: Capri Tobar Department: Room: Gender: Female Supervisor Typesetting: : 1945 Requested By: Killian Bates Order Number: [id number] Kimmy MD: Rashaad Jensen M.D. Measurements Intervals [place] Rate: 101 P: 51 OK: 165 QRS: 21 QRSD: 90 T: -25 QT: 341 QTc: 443 Interpretive Statements SINUS TACHYCARDIA WITH OCCASIONAL VENTRICULAR PREMATURE COMPLEXES LOW QRS VOLTAGE IN PRECORDIAL LEADS [QRS DEFLECTION < 1.0 mV IN CHEST LEADS] NONSPECIFIC ST & T-WAVE ABNORMALITY\ Compared to ECG 10/09/2024 04:13:01 Ventricular premature complex(es) now present Low QRS voltage now present Possible ischemia no longer present T-wave abnormality still present Electronically Signed On 11-24-2024 13:43:42 CDT by Rashaad Jensen M.D. [id number]
--- NOTE | 2024-11-23 15:04 | PM.HP ---
Providers/Chief Complaint Admitting Physician: Killian Bates MD Primary Care Provider: Jenniffer Jenkins MD Chief Complaint: abd pain History of Present Illness Capri Tobar is a 79 year old female with a past medical history of GI bleed/hemorrhagic shock back in July 2024, history of RCA stents on Brilinta, type 2 diabetes, hypertension, hyperlipidemia, who presents to [facility] due to complaints of weakness, fatigue, abdominal pain, epigastric pain, and complaints of black tarry stool. Currently patient is alert oriented x 3, following all commands, normotensive, on room air, her complaint currently is epigastric discomfort, according to patient, she had her Brilinta dose held for 5 days in preparation for repeat EGD however her procedure was canceled as the surgeon performing the procedure was not working, so she resumed the Brilinta, and her dose was decreased to 60 mg twice daily, she reports that she is getting iron transfusions, oncology, today was her first transfusion, she has been noticing black tarry stools, weakness, fatigue, no nausea, no vomiting, no lightheadedness, dizziness, she has not taken her Brilinta this morning Review of Systems Const: Denies: fever(s) or chills Card: Denies: chest pain Resp: Denies: dyspnea GI: Reports: abdominal pain Medications/Allergies Home Medications ?Medication ?Instructions ?Recorded ?Confirmed ?Last Taken ?Type allopurinol 100 mg tablet 100 mg PO BEDTIME 09/08/19 11/23/24 11/22/24 19:00 History amitriptyline 25 mg tablet 25 mg PO BEDTIME 09/08/19 11/23/24 07/10/24 History acetaminophen 650 mg 1,300 mg PO BID Pain 07/30/20 11/23/24 11/22/24 History tablet,extended release (Tylenol Arthritis Pain) gabapentin 300 mg capsule 300 mg PO TID 05/23/21 11/23/24 11/22/24 History metoprolol tartrate 25 mg tablet 25 mg PO BID@0900,2100 #120 tabs 11/27/22 11/23/24 11/22/24 Rx atorvastatin 80 mg tablet 80 mg PO BEDTIME #90 tabs 11/10/23 11/23/24 11/22/24 Rx albuterol sulfate 90 mcg/actuation 2 inh inhalation Q4H PRN shortness 11/03/24 05/08/25 Unknown Rx aerosol inhaler of breath or wheezing #6.7 grams insulin glargine 100 unit/mL (3 25 unit SUBCUT DAILY 07/12/24 11/23/24 07/10/24 History mL) subcutaneous pen (Lantus Solostar U-100 Insulin) levothyroxine 75 mcg tablet 75 mcg PO DAILY 07/12/24 11/23/24 11/22/24 History empagliflozin 25 mg tablet 25 mg PO DAILY 08/15/24 11/23/24 11/22/24 History (Jardiance) Lactobacillus rhamnosus GG 10 1 cap PO DAILY 08/24/24 11/23/24 Unknown History billion cell capsule (Culturelle) pantoprazole 40 mg tablet,delayed 40 mg PO BID 90 days #180 tabs 08/31/24 11/23/24 11/22/24 Rx release baclofen 10 mg tablet 5 mg PO BID 11/23/24 11/23/24 11/22/24 History tramadol 50 mg tablet 50 mg PO Q8H PRN Pain 11/23/24 11/23/24 Unknown History Allergies Allergy/AdvReac Type Severity Reaction Status Date / Time codeine Allergy Unknown Unknown Verified 10/17/24 03:41 tetanus and diphtheria Allergy Unknown Verified 10/17/24 03:41 toxoids Tetanus Vaccines and Toxoid Allergy Unknown Verified 10/17/24 03:41 PFSH Acute PFSH: Medical History ST elevation (STEMI) myocardial infarction Diabetes Melena Chest pain Coronary stent thrombosis Had stent thrombosis x2 during hospitalization with likely mechanism of plavix resistance ST elevation myocardial infarction (STEMI) History of [place] (myocardial infarction) Coronary artery disease PAD (peripheral artery disease) HTN (hypertension) Surgical History H/O esophagogastroduodenoscopy (12/19/20) Gastric erosions Status post colonoscopy (12/19/20) Extensive diverticulosis H/O section S/P breast biopsy S/P PTCA (percutaneous transluminal coronary angioplasty) S/P appendectomy History of cholecystectomy S/P femoral-popliteal bypass surgery Family History Other CAD (coronary artery disease) Cancer Diabetes Hypertension Stroke Social History Smoking and tobacco/nicotine status: former use of tobacco/nicotine (quit 2013) Quit status (tobacco/nicotine): has quit using Year quit tobacco: 2016 Alcohol intake: never Substance/Drug Use: never Vitals/I&O/Wt Last Vital Signs Temp 97.4 F L 11/23/24 11:07 Pulse 99 11/23/24 15:01 Resp 26 H 11/23/24 13:38 BP 115/70 11/23/24 15:01 Pulse Ox 95 11/23/24 15:01 O2 Del Method Room Air 11/23/24 12:20 11/23/24 11/23/24 11/23/24 06:59 14:59 22:59 Intake Total 1000 / 1000 Balance 1000 / 1000 Weight last 48 hrs Weight 66.224 kg Physical Exam Const: COMMON NORMALS: no acute distress and patient oriented x3 HENMT: COMMON NORMALS: normocephalic Eye: COMMON NORMALS: Equal, round and reactive pupils present and EOMs intact bilaterally Resp: COMMON NORMALS: normal respiratory effort, No retractions, No use of accessory muscles and clear to auscultation bilaterally AUSCULTATION: clear to auscultation bilaterally Cardio: COMMON NORMALS: no JVD, regular rate, regular rhythm, S1 normal heart sound present and S2 normal heart sound present RATE: regular rate RHYTHM: regular rhythm HEART SOUNDS: S1 normal heart sound present and S2 normal heart sound present GI: COMMON NORMALS: Normal to inspection, nondistended, normoactive bowel sounds present, Soft to palpation and non-tender Extremity: COMMON NORMALS: no pedal edema Neuro: COMMON NORMALS: patient oriented x3, CN's II-XII intact bilaterally and moves all extremities Psych: COMMON NORMALS: mental status grossly normal Data 11/23/24 11:46 11/23/24 11:46 A&P Assessment and plan (1) UTI (urinary tract infection): (2) Iron deficiency anemia, unspecified: (3) GI bleed: Plan GI bleed - History of upper GI bleed, hemorrhagic shock, required 3 units PRBC, EGD findings of - She had a planned outpatient EGD, which was recently canceled - She is on Brilinta 60 mg twice daily - Reports black tarry stools - History of iron deficiency anemia for which she is receiving IV iron infusions Plan - Receiving 1 unit PRBC - Monitor hemodynamics closely - IV fluids - Protonix - Carafate - General Surgery consulted, plan for EGD tomorrow morning - Continue Rocephin - Telemetry monitoring -History of CAD, status post RCA stenting, troponin series, EKG series -Type 2 diabetes mellitus, low-dose sliding scale -UTI, Rocephin -Full code SCDs for DVT prophylaxis PDMP PDMP Reviewed: Not Reviewed Attestations Medical Necessity Statement*: Patient requires hospitalization, inpatient, greater than 2 midnights, for GI bleed Coding Level of Care Code Acute Code for Chg Fwd Diagnoses UTI (urinary tract infection) N39.0 Iron deficiency anemia, unspecified D50.9 GI bleed K92.2
[2024-11-23 15:11] LABS: Ferritin 203 ng/mL (15-150); Iron 290 ug/dL (37-145); Percent Saturation 78.5 % (20-50); Total Iron Binding Capacity 369 mcg/dl; Unsaturated Iron Binding 79 ug/dL (112-347)
[2024-11-23 15:43] LABS: INR 1.02 (0.8-1.2)
[2024-11-23 15:44] LABS: Partial Thromboplastin Time 35.9 SECONDS (23.9-36.7)
[2024-11-23] MEDS: sucralfate 1 gm/10 mL Oral Liq UDC PO ×2 (15:45→21:30)
[2024-11-23] MEDS: gabapentin 300 mg Capsule PO ×2 (15:45→21:30)
[2024-11-23 15:49] LABS: Troponin(5th) Baseline 8 ng/L (0-10)
[2024-11-23 15:52] LABS: Lactic Sepsis W/Reflex 1.2 mmol/L (0.5-2.2)
[2024-11-23 16:30] LABS: NT Pro B Type Natriuretic Pept 912 pg/mL (0-450)
--- NOTE | 2024-11-23 16:40 | ECG_ITS ---
[email or web address] Test Date: 2024-11-23 Pat Name: Capri Tobar Department: Room: 275 Gender: Female Circulating Process Inspector: : 1945 Requested By: Killian Bates Order Number: [id number] Reading MD: ANGELIC GLEZ Measurements Intervals [place] Rate: 95 P: 52 VA: 152 QRS: 28 QRSD: 89 T: -21 QT: 340 QTc: 429 Interpretive Statements SINUS RHYTHM LOW QRS VOLTAGE IN PRECORDIAL LEADS [QRS DEFLECTION < 1.0 mV IN CHEST LEADS] NONSPECIFIC ST & T-WAVE ABNORMALITY Compared to ECG 11/23/2024 11:29:31 Sinus tachycardia no longer present Ventricular premature complex(es) no longer present T-wave abnormality still present Electronically Signed On 11-25-2024 16:29:17 CDT by ANGELIC GLEZ [id number] [id number]
--- NOTE | 2024-11-23 16:45 | PM.CONSULT ---
Providers/Reason For Consult Consulting Physician/Specialty*: Surgery Reason for Consult*: Upper GI bleed Attending Physician: Killian Bates MD Primary Care Provider: Jenniffer Jenkins MD History of Present Illness History of Present Illness Capri Tobar is a 79-year-old female who presents to the hospital with weakness and epigastric pain, she has history of chronic anticoagulation with Brilinta, had a recent episode of GI bleeding requiring transfusion. Endorses having pain in the upper abdomen, she has been noticing some darker stool but Hemoccult is negative in our ER. Review of Systems General: Reports: 10 or more systems reviewed and unremarkable except in HPI and below Medications/Allergies Home Medications ?Medication ?Instructions ?Recorded ?Confirmed ?Last Taken ?Type allopurinol 100 mg tablet 100 mg PO BEDTIME 09/08/19 11/23/24 11/22/24 19:00 History amitriptyline 25 mg tablet 25 mg PO BEDTIME 09/08/19 11/23/24 07/10/24 History acetaminophen 650 mg 1,300 mg PO BID Pain 07/30/20 11/23/24 11/22/24 History tablet,extended release (Tylenol Arthritis Pain) gabapentin 300 mg capsule 300 mg PO TID 05/23/21 11/23/24 11/22/24 History metoprolol tartrate 25 mg tablet 25 mg PO BID@0900,2100 #120 tabs 11/27/22 11/23/24 11/22/24 Rx atorvastatin 80 mg tablet 80 mg PO BEDTIME #90 tabs 11/10/23 11/23/24 11/22/24 Rx albuterol sulfate 90 mcg/actuation 2 inh inhalation Q4H PRN shortness 05/21/24 11/23/24 Unknown Rx aerosol inhaler of breath or wheezing #6.7 grams insulin glargine 100 unit/mL (3 25 unit SUBCUT DAILY 07/12/24 11/23/24 07/10/24 History mL) subcutaneous pen (Lantus Solostar U-100 Insulin) levothyroxine 75 mcg tablet 75 mcg PO DAILY 07/12/24 11/23/24 11/22/24 History empagliflozin 25 mg tablet 25 mg PO DAILY 08/15/24 11/23/24 11/22/24 History (Jardiance) Lactobacillus rhamnosus GG 10 1 cap PO DAILY 08/24/24 11/23/24 Unknown History billion cell capsule (Culturelle) pantoprazole 40 mg tablet,delayed 40 mg PO BID 90 days #180 tabs 08/31/24 11/23/24 11/22/24 Rx release baclofen 10 mg tablet 5 mg PO BID 11/23/24 11/23/24 11/22/24 History tramadol 50 mg tablet 50 mg PO Q8H PRN Pain 11/23/24 11/23/24 Unknown History Allergies Allergy/AdvReac Type Severity Reaction Status Date / Time codeine Allergy Unknown Unknown Verified 10/17/24 03:41 tetanus and diphtheria Allergy Unknown Verified 10/17/24 03:41 toxoids Tetanus Vaccines and Toxoid Allergy Unknown Verified 10/17/24 03:41 Current Medications Generic Name Dose Route Start Last Admin Trade Name Freq PRN Reason Stop Dose Admin Gabapentin 300 mg 11/23/24 15:12 11/23/24 15:45 Gabapentin 300 Mg Capsule PO 300 mg TID CHARLI Administration Sucralfate 1 gm 11/23/24 15:12 11/23/24 15:45 Sucralfate 1 Gm/10 Ml Oral Liq Udc PO 1 gm Q6H CHARLI Administration PFSH Acute PFSH: Medical History ST elevation (STEMI) myocardial infarction Diabetes Melena Chest pain Coronary stent thrombosis Had stent thrombosis x2 during hospitalization with likely mechanism of plavix resistance ST elevation myocardial infarction (STEMI) History of [place] (myocardial infarction) Coronary artery disease PAD (peripheral artery disease) HTN (hypertension) Surgical History H/O esophagogastroduodenoscopy (12/19/20) Gastric erosions Status post colonoscopy (12/19/20) Extensive diverticulosis H/O section S/P breast biopsy S/P PTCA (percutaneous transluminal coronary angioplasty) S/P appendectomy History of cholecystectomy S/P femoral-popliteal bypass surgery Family History Other CAD (coronary artery disease) Cancer Diabetes Hypertension Stroke Social History Smoking and tobacco/nicotine status: former use of tobacco/nicotine (quit 2013) Quit status (tobacco/nicotine): has quit using Year quit tobacco: 2016 Alcohol intake: never Substance/Drug Use: never Vitals/I&O/Wt Last Vital Signs Temp 98.5 F 11/23/24 16:33 Pulse 89 11/23/24 16:33 Resp 16 11/23/24 16:33 BP 102/48 11/23/24 16:33 Pulse Ox 91 11/23/24 16:18 O2 Del Method Room Air 11/23/24 15:48 11/23/24 11/23/24 11/23/24 06:59 14:59 22:59 Intake Total 1000 / 1000 Balance 1000 / 1000 Weight last 48 hrs Weight 146 lb Physical Exam Narrative: The abdomen is there are some tenderness to palpation epigastrium otherwise benign abdominal exam Data 11/23/24 11:46 11/23/24 11:46 A&P Assessment and plan (1) GI bleed: Plan After complete history, physical examination and review of all available clinical data I have decided to offer the patient an upper endoscopy with possible bleeding control for suspected upper GI bleeding. We have discussed all the recent benefits of the procedure including the risks of rebleeding, perforation, need for additional interventions, lack of pathology to call diagnosis as we cannot take biopsies due to anticoagulation. Injury to the soft tissue of mouth and pharynx. Patient shows understanding agrees to proceed. She will be booked for tomorrow morning. In the interim I agree with resuscitation and blood transfusion as guided by medical team patient can be initiated on pantoprazole twice a day. PDMP PDMP Reviewed: Not Reviewed Coding Level of Care Code Acute Code for g Fwd Diagnoses GI bleed K92.2
[2024-11-23 16:53] LABS: Glucose Point of Care 110 mg/dL (70-110)
[2024-11-23 17:46] LABS: Troponin 5 2HR 9.94 ng/L (0-10); Troponin 5 2HR Delta 1.94 ABS# (0-10)
[2024-11-23 20:35] LABS: Glucose Point of Care 98 mg/dL (70-110)
[2024-11-23] MEDS: amitriptyline 25 mg Tablet PO (21:30)
[2024-11-23] MEDS: acetaminophen 325 mg Tablet 650 MG PO (21:30)
[2024-11-23 21:58] LABS: Hematocrit 29.4 % (36-47)
[2024-11-23 22:22] LABS: Troponin 5 6HR 10.53 ng/L (0-10); Troponin 5 6HR Delta 2.53 ng/L (0-12)
--- NOTE | 2024-11-23 22:25 | ECG_ITS ---
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1945 Requested By: Killian Bates Order Number: [id number] Reading MD: ANGELIC GLEZ Measurements Intervals Morgan Rate: 83 P: 48 PA: 161 QRS: 5 QRSD: 93 T: -21 QT: 363 QTc: 427 Interpretive Statements SINUS RHYTHM WITH OCCASIONAL VENTRICULAR PREMATURE COMPLEXES PROBABLE INFERIOR MYOCARDIAL INFARCTION , OF INDETERMINATE AGE [35 ms Q WAVE IN II/aVF] Compared to ECG 11/23/2024 15:54:24 Ventricular premature complex(es) now present Myocardial infarct finding now present T-wave abnormality no longer present Electronically Signed On 11-25-2024 16:27:22 CDT by ANGELIC GLEZ [email or web address]
[2024-11-23] MEDS: sodium chloride 0.9% 1,000 ML 50 ML IV (22:26)
[2024-11-24] VITALS (13 sets, daily range): BP systolic 90–133; BP diastolic 34–79; PULSE 68–91; RESP 15–18; TEMP 36.3–37.2; O2SAT 93–100
[2024-11-24 03:58] LABS: Basophils # 0.1 10^3/uL (0.0-0.1); Basophils % 1.3 %; Eosinophils # 0.4 10^3/uL (0.0-0.8); Eosinophils % 5.1 %; Hematocrit 28.7 % (36-47); Lymphocytes # 2.4 10^3/uL (0.8-4.8); Mean Corpuscular HGB Conc 28.2 g/dL (30-55); Mean Corpuscular Hemoglobin 21.7 pg (27-33); Mean Corpuscular Volume 76.9 fl (85-98); Mean Platelet Volume 9.4 fL (7.4-10.4); Monocytes # 0.8 10^3/uL (0.2-0.9); Monocytes % 10.7 %; Neutrophils # 3.38 10^3/uL (1.8-7.7); Neutrophils % 48.2 %; Nucleated Red Blood Cells # 0.1 /100WBC; Nucleated Red Blood Cells % 0.7 %; Platelet Count 243 10^3/cmm (157-399); Red Blood Count 3.73 10^6/uL (3.85-5.65); White Blood Count 7.02 10^3/uL (3.29-11.43)
[2024-11-24 04:23] LABS: Alanine Aminotransferase 8 U/L (0-33); Albumin Level 2.9 g/dL (3.5-5.2); Alkaline Phosphatase 77 U/L (35-105); Anion Gap 12.6 (5-19); Aspartate Amino Transferase 18 U/L (0-32); Blood Urea Nitrogen 8 mg/dL (8-23); Calcium 8.3 mg/dL (8.5-10.5); Carbon Dioxide 22 mmol/L (22-29); Chloride 112 mmol/L (98-107); Creatinine Clr Calc Pharmacy 52.5137; Globulin 2.8 g/dL (1.3-4.6); Glucose 80 mg/dL (65-115); Magnesium 1.9 mg/dL (1.7-2.3); Osmolality Calculated 293 mOsm/kg (285-295); Phosphorus 3.7 mg/dL (2.5-4.5); Potassium 3.6 mmol/L (3.5-5.1); Sodium 143 mmol/L (136-145); Total Bilirubin 0.9 mg/dL (0.15-1.2); Total Protein 5.7 g/dL (6.6-8.7)
[2024-11-24 06:25] LABS: Glucose Point of Care 108 mg/dL (70-110)
[2024-11-24] MEDS: pantoprazole 40 mg SDV IVP ×2 (06:35→16:22)
[2024-11-24] MEDS: sucralfate 1 gm/10 mL Oral Liq UDC PO ×4 (06:45→20:25)
[2024-11-24] MEDS: levothyroxine 75 mcg Tablet PO (08:57)
[2024-11-24] MEDS: gabapentin 300 mg Capsule PO ×3 (08:57→20:24)
--- NOTE | 2024-11-24 09:00 | PC.NURSE ---
Verified with GI, okay to take morning meds with small amount of water. 2 pills given with 15 ml of water.
[2024-11-24 09:49] LABS: Hematocrit 29.2 % (36-47)
[2024-11-24 11:20] LABS: Glucose Point of Care 102 mg/dL (70-110)
--- NOTE | 2024-11-24 11:25 | W.PM.OPSUD ---
Surgery/Procedure H&P Update DATE OF PROCEDURE: November 24, 2024 DATE H&P PERFORMED: 11/23/24 H&P UPDATE INFORMATION: I have reviewed H&P completed within last 30 days, I have examined patient prior to procedure, No changes to prior documentation, Changes to prior documentation as noted here and Risks and benefits of the procedure reviewed PLANNED PROCEDURE: Operation Date: 11/24/24 12:00 Proposed Procedures p EGD(Not Applicable) - Yeyo Bloom MD
[2024-11-24] MEDS: sodium chloride 0.9% 500 ML 15 ML IV (11:44)
--- NOTE | 2024-11-24 12:10 | P.PN_ITS ---
Subjective 2 Subjective: 79-year-old female admitted with anemia, I have been asked to perform upper endoscopy for evaluation of possible upper GI bleed as patient has seen dark stools and has been having some epigastric abdominal pain. Vitals/I&O/Wt Last Vital Signs Temp 98.9 F 11/24/24 11:10 Pulse 87 11/24/24 11:10 Resp 17 11/24/24 11:10 BP 112/58 11/24/24 11:10 Pulse Ox 98 11/24/24 11:10 O2 Del Method Nasal Cannula 11/24/24 11:10 O2 Flow Rate 2 11/24/24 11:10 11/23/24 11/24/24 11/24/24 22:59 06:59 14:59 Intake Total 1365 / 1365 0 / 1365 Balance 1365 / 1365 0 / 1365 Weight last 48 hrs Weight 142 lb 11.2 oz Weight 146 lb Physical Exam 2 GI: OTHER: Abdomen soft nontender nondistended Data 11/24/24 09:43 11/24/24 03:51 Micro: Microbiology 11/23/24 12:18 Urine Culture - Preliminary Urine,Clean Catch A&P Assessment and plan (1) Hematochezia: (2) GI bleed: Plan Patient has been stable overnight. Hemoglobin this morning is 8. EGD was found no pathological findings no evidence of gastritis no evidence of ulcerations or erosions in the stomach or duodenum up to the second portion. Patient can be cleared from the general surgery standpoint, diet can be advanced as tolerated. Follow-up will be as needed PDMP PDMP Reviewed: Not Reviewed Attestations 2 Medical Necessity Statement*: Per medical team Coding Level of Care Code Acute Code for Chg Fwd Diagnoses Hematochezia K92.1 GI bleed K92.2
--- NOTE | 2024-11-24 12:11 | ANES.PREANE2 ---
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 Was Beta Breanna taken within 24 hours: Yes Was Clonidine taken within 24 hours: N/A Last intake: Intake Last Liquid Date 11/24/24 Last Liquid Time 09:00 Last Solid Date 11/22/24 Last Solid Time 14:00 Social No alcohol and No tobacco Exam alert and oriented x 3 Airway Submandibular: within normal limits Cervical ROM: within normal limits Mallampati: Class II Dentition: false Pulmonary Sleep Apnea CV/HEM Hypertension and Myocardial Infarction (stents 3 years ago on brilinta) None reported Hepatic None reported GI Gastroesophageal Reflux Disease Metabolic Hyperlipidemia and Thyroid Disease [facility] [place] None reported Neuropsych None reported Anesthetic Plan ASA status: 3 Anesthesia: Anesthesia Evaluation and MAC Risk of > 500 ml blood loss (7ml/kg in children): No Medications/Allergies Home Medications ?Medication ?Instructions ?Recorded ?Confirmed ?Last Taken ?Type allopurinol 100 mg tablet 100 mg PO BEDTIME 09/08/19 11/23/24 11/22/24 19:00 History amitriptyline 25 mg tablet 25 mg PO BEDTIME 09/08/19 11/23/24 07/10/24 History acetaminophen 650 mg 1,300 mg PO BID Pain 07/30/20 11/23/24 11/22/24 History tablet,extended release (Tylenol Arthritis Pain) gabapentin 300 mg capsule 300 mg PO TID 05/23/21 11/23/24 11/22/24 History metoprolol tartrate 25 mg tablet 25 mg PO BID@0900,2100 #120 tabs 11/27/22 11/23/24 11/22/24 Rx atorvastatin 80 mg tablet 80 mg PO BEDTIME #90 tabs 11/10/23 11/23/24 11/22/24 Rx albuterol sulfate 90 mcg/actuation 2 inh inhalation Q4H PRN shortness 05/21/24 11/23/24 Unknown Rx aerosol inhaler of breath or wheezing #6.7 grams insulin glargine 100 unit/mL (3 25 unit SUBCUT DAILY 07/12/24 11/23/24 07/10/24 History mL) subcutaneous pen (Lantus Solostar U-100 Insulin) levothyroxine 75 mcg tablet 75 mcg PO DAILY 07/12/24 11/23/24 11/22/24 History empagliflozin 25 mg tablet 25 mg PO DAILY 08/15/24 11/23/24 11/22/24 History (Jardiance) Lactobacillus rhamnosus GG 10 1 cap PO DAILY 08/24/24 11/23/24 Unknown History billion cell capsule (Culturelle) pantoprazole 40 mg tablet,delayed 40 mg PO BID 90 days #180 tabs 08/31/24 11/23/24 11/22/24 Rx release baclofen 10 mg tablet 5 mg PO BID 11/23/24 11/23/24 11/22/24 History tramadol 50 mg tablet 50 mg PO Q8H PRN Pain 11/23/24 11/23/24 Unknown History Allergies Allergy/AdvReac Type Severity Reaction Status Date / Time codeine Allergy Unknown Unknown Verified 10/17/24 03:41 tetanus and diphtheria Allergy Unknown Verified 10/17/24 03:41 toxoids Tetanus Vaccines and Toxoid Allergy Unknown Verified 10/17/24 03:41 Current Medications Generic Name Dose Route Start Last Admin Trade Name Freq PRN Reason Stop Dose Admin Acetaminophen 650 mg 11/23/24 15:12 11/23/24 21:30 Acetaminophen 325 Mg Tablet PO 650 mg On Hold: 11/24/24 11:32 Q6H PRN Administration Comment: Order held by Process Mild/Mod Pain Or Temp >/= 101 Transfer Amitriptyline HCl 25 mg 11/23/24 21:00 11/23/24 21:30 Amitriptyline 25 Mg Tablet PO 25 mg On Hold: 11/24/24 11:32 BEDTIME CHARLI Administration Comment: Order held by Process Transfer Gabapentin 300 mg 11/23/24 15:12 11/24/24 08:57 Gabapentin 300 Mg Capsule PO 300 mg On Hold: 11/24/24 11:32 TID CHARLI Administration Comment: Order held by Process Transfer Sodium Chloride 1,000 mls @ 50 mls/hr 11/23/24 15:12 11/23/24 22:26 Sodium Chloride 0.9% IV 50 mls/hr On Hold: 11/24/24 11:32 .Q20H CHARLI Administration Comment: Order held by Process Transfer Sodium Chloride 500 mls @ 15 mls/hr 11/24/24 11:32 11/24/24 11:44 Sodium Chloride 0.9% IV 11/25/24 11:31 15 mls/hr .Q24H PRN Administration COLONOSCOPY FLUIDS Insulin Human Lispro 0 unit 11/23/24 18:00 11/24/24 11:27 Insulin Lispro 100 Unit/1 Ml SUBCUT Not Given On Hold: 11/24/24 11:32 WM&BEDTIME CHARLI Comment: Order held by Process Protocol Transfer Levothyroxine Sodium 75 mcg 11/24/24 09:00 11/24/24 08:57 Levothyroxine 75 Mcg Tablet PO 75 mcg On Hold: 11/24/24 11:32 DAILY CHARLI Administration Comment: Order held by Process Transfer Pantoprazole Sodium 40 mg 11/23/24 15:12 11/24/24 06:35 Pantoprazole 40 Mg Sdv IVP 40 mg On Hold: 11/24/24 11:32 Q12H CAHRLI Administration Comment: Order held by Process Transfer Sucralfate 1 gm 11/23/24 15:12 11/24/24 06:45 Sucralfate 1 Gm/10 Ml Oral Liq Udc PO 1 gm On Hold: 11/24/24 11:32 Q6H CHARLI Administration Comment: Order held by Process Transfer [facility] Anesthesia Medical History ST elevation (STEMI) myocardial infarction Diabetes Melena Chest pain Coronary stent thrombosis Had stent thrombosis x2 during hospitalization with likely mechanism of plavix resistance ST elevation myocardial infarction (STEMI) History of [place] (myocardial infarction) Coronary artery disease PAD (peripheral artery disease) HTN (hypertension) Surgical History H/O esophagogastroduodenoscopy (12/19/20) Gastric erosions Status post colonoscopy (12/19/20) Extensive diverticulosis H/O section S/P breast biopsy S/P PTCA (percutaneous transluminal coronary angioplasty) S/P appendectomy History of cholecystectomy S/P femoral-popliteal bypass surgery Family History Other CAD (coronary artery disease) Cancer Diabetes Hypertension Stroke Social History Smoking and tobacco/nicotine status: former use of tobacco/nicotine (quit 2013) Quit status (tobacco/nicotine): has quit using Year quit tobacco: 2015 Alcohol intake: never Substance/Drug Use: never Data Anesthesia 11/24/24 09:43 11/24/24 03:51 Short CBC 11/23/24 11/23/24 11/24/24 Range/Units 11:46 21:43 03:51 WBC 8.26 7.02 (3.29-11.43) 10^3/uL Hgb 7.10 L 8.40 L 8.10 L (11.27-16.99) g/dL Hct 27.0 L 29.4 L 28.7 L (36-47) % MCV 74.4 L 76.9 L (85-98) fl Plt Count 325 243 (157-399) 10^3/cmm Neut % (Auto) 70.9 48.2 % Neut # (Auto) 5.85 3.38 (1.8-7.7) 10^3/uL 11/24/24 Range/Units 09:43 WBC (3.29-11.43) 10^3/uL Hgb 8.00 L (11.27-16.99) g/dL Hct 29.2 L (36-47) % MCV (85-98) fl Plt Count (157-399) 10^3/cmm Neut % (Auto) % Neut # (Auto) (1.8-7.7) 10^3/uL BMP 11/23/24 11/24/24 11:46 03:51 Sodium 141 143 Potassium 4.1 3.6 Chloride 107 112 H Carbon Dioxide 19 L 22 BUN 10 8 Creatinine 0.7 0.7 Glucose 148 H 80 Calcium 8.7 8.3 L Cardiac Enzymes 11/23/24 11/23/24 11/23/24 Range/Units 11:46 15:02 17:15 Troponin T Baseline 8 (0-10) ng/L Troponin T 120 Minute 9.94 (0-10) ng/L Delta Troponin T 1.94 (0-10) ABS# Troponin T Hi Sens 6Hr (0-10) ng/L Troponin T Hi Sens 6Hr Delta (0-12) ng/L NT-Pro-B Natriuret Pep 912 H (0-450) pg/mL 11/23/24 Range/Units 21:43 Troponin T Baseline (0-10) ng/L Troponin T 120 Minute (0-10) ng/L Delta Troponin T (0-10) ABS# Troponin T Hi Sens 6Hr 10.53 H (0-10) ng/L Troponin T Hi Sens 6Hr Delta 2.53 (0-12) ng/L NT-Pro-B Natriuret Pep (0-450) pg/mL Liver Function 11/23/24 11/24/24 Range/Units 11:46 03:51 Total Bilirubin 1.0 0.9 (0.15-1.2) mg/dL AST 20 18 (0-32) U/L ALT 9 8 (0-33) U/L Alkaline Phosphatase 89 77 (35-105) U/L Albumin 3.4 L 2.9 L (3.5-5.2) g/dL Urine 11/23/24 Range/Units 12:18 Urine Color Yellow (Yellow) Urine Appearance Clear (CLEAR) Urine pH 5.5 (5-7) Ur Specific [place] 1.018 (1.005-1.030) Urine Protein Negative (Negative) Urine Glucose (UA) Negative (Normal) Urine Ketones Trace (Negative) Urine Nitrate Negative (Negative) Urine Bilirubin Negative (Negative) Ur Leukocyte Esterase 2+ A (Negative) Urine RBC 6-10 (0-2) /hpf Urine WBC 21-50 H (0-5) /hpf Blood Bank 11/23/24 13:17 Blood Type B Negative Rho(D) Type Rh negative Antibody Screen Negative Coags 11/23/24 11:46 PT 14.10 INR 1.02 APTT 35.9 Microbiology 11/23/24 12:18 Urine Culture - Preliminary Urine,Clean Catch Cardiac Studies: Echocardiogram 08/17/23 Echocardiogram Ultrasound 08/15/24
--- NOTE | 2024-11-24 12:26 | PC.NURSE ---
Patient taken to room 275 via [facility]. Transferred self to bed x 1 assist. VS taken by signee - Temp 97.9, HR 76, BP 121/66, O2 sat 100% on 2 LNC. CLWR.
--- NOTE | 2024-11-24 12:42 | ANE.PACU2 ---
Inpatient post-anesthesia follow up: Airway intact: Yes Vital signs: Temperature 98.0 F Pulse Rate 78 Respiratory Rate 18 Blood Pressure 96/55 Pulse Oximetry 100 Oxygen Delivery Me thod [ Nasal Cannula Current Rate & Del josef] Oxygen Delivery Me thod Nasal Cannula Oxygen Flow Rate [ Current Rate 2 & Delivery] Oxygen Flow Rate 2 Fraction of Inspir ed Oxygen Hydration adequate: Yes Nausea and vomiting: No Pain level: 1 Mental status: Baseline
--- NOTE | 2024-11-24 12:45 | P.CONIM_ITS ---
<Statement entered by Clay Carvajal MD - 11/24/24 18:45> Patient was evaluated and cared for in conjunction with an advanced practice practitioner. I personally examined the patient and reviewed the chart and all pertinent data including imaging, telemetry, and laboratory results. I discussed the patient in detail with the advanced practice practitioner. Please see their note for complete H&P testing result and agreed upon plan of care for the patient. 79-year-old female past medical history significant for coronary disease history of prior in-stent restenosis on dual antiplatelet therapy including Brilinta and aspirin presented with persistent anemia, EGD remains negative however colonoscopy has not been performed patient has history of positive occult stool, most likely GI bleed versus bone marrow disorder. We have been asked to guide regarding her dual antiplatelet therapy GENERAL: Patient is alert, awake and oriented x3. HEART: Regular S1 and S2. No murmur, rub or gallop. LUNGS: Clear to auscultate bilaterally. CENTRAL NERVOUS SYSTEM: Grossly nonfocal. EXTREMITIES: Lower extremities with out edema bilaterally. Assessment and plan Ischemic cardiomyopathy History of prior stent last stents were placed in 2020 Hypertension GI bleed Persistent severe anemia Since it has been more than 2 years that patient stents were placed therefore she can stop Brillinta under acceptable risk. May require colonoscopy to confirm and treat GI bleed source. Continue pantoprazole for now Continue rest of home medication Providers/Reason For Consult 2 Consulting Physician/Specialty*: Dr Christal Carvajal, cardiology Reason for Consult*: GI bleed s/p STEMI Requesting Physician: Killian Bates MD Attending Physician: Killian Bates MD Primary Care Provider: Jenniffer Jenkins MD History of Present Illness History of Present Illness Capri Tobar is a 79 year old female with past medical history of CAD, initial RCA stent in 2016, STEMI in 2020 with calcified RCA (GHISLAINE x3, started on Brilinta-presumed Plavix resistance), taken off aspirin due to GI bleeding, admitted for STEMI in July of this year with subsequent coronary angiogram that did not reveal any stenosis- EKG changes felt to be due to hypothermia. She underwent EGD in July with no source of bleeding identified. She was discharged on reduced dose of Brilinta 60 mg twice daily, sucralfate and pantoprazole. Plan was for further endoscopy after discharge, which did not occur. She had another drop in hemoglobin in August on 08/24 and received transfusion 2 units, plan was to start Venofer infusions, however started having abdominal pain and nausea so she went to the emergency room. Found to have hemoglobin 7.1, received transfusion with this admission and underwent EGD today. No active bleeding was noted. Troponin series: 8->9->10. EKG showed sinus rhythm with nonspecific T wave changes. Echocardiogram from July shows normal LVEF, however BNP this admission was 912, renal function normal. Review of Systems 2 Const: Denies: fever(s), chills, change in weight, fatigue or diaphoresis Eyes: Denies: change in vision ENMT: Denies: epistaxis Card: Denies: chest pain, palpitations, irregular heart rhythm, edema, syncope, pre-syncope, dyspnea on exertion, orthopnea or leg pain with exertion Resp: Denies: dyspnea, productive cough or wheezing GI: Denies: nausea, vomiting, hematemesis, hematochezia or melena : Denies: hematuria Musc: Denies: extremity swelling Alfredo/Lymph: Denies: easy bruising or easy bleeding Medications/Allergies Home Medications ?Medication ?Instructions ?Recorded ?Confirmed ?Last Taken ?Type allopurinol 100 mg tablet 100 mg PO BEDTIME 09/08/19 0 11/23/24 11/22/24 19:00 History amitriptyline 25 mg tablet 25 mg PO BEDTIME 09/08/19 0 11/23/24 07/10/24 History acetaminophen 650 mg 1,300 mg PO BID Pain 1 11/23/24 11/22/24 History tablet,extended release (Tylenol Arthritis Pain) gabapentin 300 mg capsule 300 mg PO TID 05/23/2111/2311/22/24 History metoprolol tartrate 25 mg tablet 25 mg PO BID@0900,210 0 #120 tabs 11/27/22 11/23/24 11/22/24 Rx atorvastatin 80 mg tablet 80 mg PO BEDTIME #90 tabs 11/23/24 11/22/24 Rx albuterol sulfate 90 mcg/actuation 2 inh inhalation Q4 H PRN shortness 05/21/24 11/23/24 Unknown Rx aerosol inhaler of breath or wheezing #6.7 g viv insulin glargine 100 unit/mL (3 25 unit SUBCUT DAILY 1 09/12/23 11/23/24 07/10/24 History mL) subcutaneous pen (Lantus Solostar U-100 Insulin) levothyroxine 75 mcg tablet 75 mcg PO DAILY 07/12/24 0 11/23/24 11/22/24 History empagliflozin 25 mg tablet 25 mg PO DAILY 08/15/2403/1211/22/24 History (Jardiance) Lactobacillus rhamnosus GG 10 1 cap PO DAILY 08/24/24 11/23/24 Unknown History billion cell capsule (Culturelle) pantoprazole 40 mg tablet,delayed 40 mg PO BID 90 days #180 tabs 08/31/24 11/23/24 11/22/24 Rx release baclofen 10 mg tablet 5 mg PO BID 11/23/24 5 11/22/24 History tramadol 50 mg tablet 50 mg PO Q8H PRN Pain 11/23/24 Unknown History Allergies Allergy/AdvReac Type Severity Reaction Status Date / Time codeine Allergy Unknown Unknown Verified 10/17/24 03:41 tetanus and diphtheria Allergy Unknown Verified 10/17/24 03:41 toxoids Tetanus Vaccines and Toxoid Allergy Unknown Verified 10/17/24 03:41 Current Medications Generic Name Dose Route Start Last Admin Trade Name Freq PRN Reason Stop Dose Admin Acetaminophen 650 mg 11/23/24 15:12 11/23/24 21:30 Acetaminophen 325 Mg Tablet PO 650 mg On Hold: 11/24/24 11:32 Q6H PRN Administration Comment: Order held by Process Mild/Mod Pain Or Temp >/= 101 Transfer Amitriptyline HCl 25 mg 11/23/24 21:00 11/23/24 21:30 Amitriptyline 25 Mg Tablet PO 25 mg On Hold: 11/24/24 11:32 BEDTIME CHARLI Administration Comment: Order held by Process Transfer Gabapentin 300 mg 11/23/24 15:12 11/24/24 08:57 Gabapentin 300 Mg Capsule PO 300 mg On Hold: 11/24/24 11:32 TID CHARLI Administration Comment: Order held by Process Transfer Sodium Chloride 1,000 mls @ 50 mls/hr 11/23/24 15:12 11/23/24 22:26 Sodium Chloride 0.9% IV 50 mls/hr On Hold: 11/24/24 11:32 .Q20H CHARLI Administration Comment: Order held by Process Transfer Sodium Chloride 500 mls @ 15 mls/hr 11/24/24 11:32 11/24/24 11:44 Sodium Chloride 0.9% IV 11/25/24 11:31 15 mls/hr .Q24H PRN Administration COLONOSCOPY FLUIDS Insulin Human Lispro 0 unit 11/23/24 18:00 11/24/24 11:27 Insulin Lispro 100 Unit/1 Ml SUBCUT Not Given On Hold: 11/24/24 11:32 WM&BEDTIME CHARLI Comment: Order held by Process Protocol Transfer Levothyroxine Sodium 75 mcg 11/24/24 09:00 11/24/24 08:57 Levothyroxine 75 Mcg Tablet PO 75 mcg On Hold: 11/24/24 11:32 DAILY CHARLI Administration Comment: Order held by Process Transfer Pantoprazole Sodium 40 mg 11/23/24 15:12 11/24/24 06:35 Pantoprazole 40 Mg Sdv IVP 40 mg On Hold: 11/24/24 11:32 Q12H CHARLI Administration Comment: Order held by Process Transfer Sucralfate 1 gm 11/23/24 15:12 11/24/24 06:45 Sucralfate 1 Gm/10 Ml Oral Liq Udc PO 1 gm On Hold: 11/24/24 11:32 Q6H CHARLI Administration Comment: Order held by Process Transfer PFSH Acute 2 PFSH: Medical History (Updated 11/24/24 @ 13:26 by JO ANN Salas) Coronary artery disease PAD (peripheral artery disease) HTN (hypertension) ST elevation (STEMI) myocardial infarction Diabetes Melena Chest pain Coronary stent thrombosis Had stent thrombosis x2 during hospitalization with likely mechanism of plavix resistance ST elevation myocardial infarction (STEMI) History of LA (myocardial infarction) Surgical History H/O esophagogastroduodenoscopy (12/19/20) Gastric erosions Status post colonoscopy (12/19/20) Extensive diverticulosis H/O section S/P breast biopsy S/P PTCA (percutaneous transluminal coronary angioplasty) S/P appendectomy History of cholecystectomy S/P femoral-popliteal bypass surgery Family History Other CAD (coronary artery disease) Cancer Diabetes Hypertension Stroke Social History Smoking and tobacco/nicotine status: former use of tobacco/nicotine (quit 2013) Quit status (tobacco/nicotine): has quit using Year quit tobacco: 2016 Alcohol intake: never Substance/Drug Use: never Vitals/I&O/Wt Last Vital Signs Temp 98.0 F 11/24/24 12:17 Pulse 78 11/24/24 12:22 Resp 18 11/24/24 12:22 BP 96/55 11/24/24 12:22 Pulse Ox 100 11/24/24 12:22 O2 Del Method Nasal Cannula 11/24/24 12:22 O2 Flow Rate 2 11/24/24 12:22 11/23/24 11/24/24 11/24/24 22:59 06:59 14:59 Intake Total 1365 / 1365 0 / 1365 0 / 0 Balance 1365 / 1365 0 / 1365 0 / 0 Weight last 48 hrs Weight 142 lb 11.2 oz Weight 146 lb Physical Exam 2 Const: COMMON NORMALS: no acute distress and patient oriented x3 GENERAL APPEARANCE: cooperative and comfortable ORIENTATION/CONSCIOUSNESS: Yes awake, Yes oriented to person, Yes oriented to place and Yes oriented to time Chest: COMMONS NORMALS: normal inspection of the chest and normal palpation of entire chest wall CHEST: Yes Symmetrical chest wall rise Resp: COMMON NORMALS: normal respiratory effort, No retractions, No use of accessory muscles and clear to auscultation bilaterally EFFORT & INSPECTION: Yes symmetric chest movement AUSCULTATION: clear to auscultation bilaterally Cardio: COMMON NORMALS: regular rate, regular rhythm, S1 normal heart sound present, S2 normal heart sound present, No gallops present (Cardio), No clicks present (Cardio), No murmurs present (Cardio) and No rub (Cardio) RATE: r egular rate RHYTHM: regular rhythm HEART SOUNDS: S1 normal heart sound present and S2 normal heart sound present PERIPHERAL PULSES: radial pulses present Extremity: COMMON NORMALS: no pedal edema Neuro: COMMON NORMALS: patient oriented x3 and moves all extremities S ENSORIUM/ORIENTATION: Yes oriented to person, Yes oriented to place and Yes oriented to time Data 11/24/24 09:43 11/24/24 03:51 Micro: Microbiology 11/23/24 12:18 Urine Culture - Preliminary Urine,Clean Catch A&P Assessment and plan (1) Coronary artery disease: (2) HTN (hypertension): (3) PAD (peripheral artery disease): (4) GI bleed: Plan Since it has been 4 years since her last intervention and she has fairly persistent GI bleeding and anemia will recommend to discontinue Brilinta. She does not have any chest pain or increase in troponin this admission. Continue metoprolol tartrate, statin, PPI. PDMP PDMP Reviewed: Not Reviewed Coding Level of Care Code Acute Code for g Fwd Diagnoses Coronary artery disease involving [place] coronary artery of [place] heart without angina pectoris I25.10 Coronary Disease-Associated Artery/Lesion type: [place] artery [place] vs. transplanted heart: [place] heart Associated angina: without angina Essential hypertension I10 Hypertension type: essential hypertension PAD (peripheral artery disease) I73.9 GI bleed K92.2
[2024-11-24] MEDS: cefTRIAXone 1,000 mg SDV 1000 MG IVP (14:51)
--- NOTE | 2024-11-24 15:58 | PM.PN ---
Subjective Subjective: Patient was seen this morning, currently she is alert oriented x 3, follows all commands, denies any fevers, no dizziness, no bloody black stools, no hemoptysis Vitals/I&O/Wt Last Vital Signs Temp 98.0 F 11/24/24 15:14 Pulse 77 11/24/24 15:14 Resp 18 11/24/24 15:14 BP 133/79 11/24/24 15:14 Pulse Ox 100 11/24/24 15:14 O2 Del Method Nasal Cannula 11/24/24 15:14 O2 Flow Rate 2 11/24/24 15:14 11/24/24 11/24/24 11/24/24 06:59 14:59 22:59 Intake Total 0 / 1365 300 / 300 Balance 0 / 1365 300 / 300 Weight last 48 hrs Weight 64.728 kg Weight 66.224 kg Physical Exam Const: COMMON NORMALS: no acute distress and patient oriented x3 Resp: COMMON NORMALS: normal respiratory effort, No retractions, No use of accessory muscles and clear to auscultation bilaterally AUSCULTATION: clear to auscultation bilaterally Cardio: COMMON NORMALS: regular rate, regular rhythm, S1 normal heart sound present and S2 normal heart sound present RATE: regular rate RHYTHM: regular rhythm HEART SOUNDS: S1 normal heart sound present and S2 normal heart sound present GI: COMMON NORMALS: Normal to inspection, nondistended, normoactive bowel sounds present and non-tender Extremity: COMMON NORMALS: no pedal edema Neuro: COMMON NORMALS: patient oriented x3 Psych: COMMON NORMALS: mental status grossly normal Data 11/24/24 09:43 11/24/24 03:51 Micro: Microbiology 11/23/24 12:18 Urine Culture - Preliminary Urine,Clean Catch A&P Assessment and plan (1) Coronary artery disease: (2) HTN (hypertension): (3) PAD (peripheral artery disease): (4) GI bleed: (5) UTI (urinary tract infection): (6) Iron deficiency anemia, unspecified: Plan GI bleed - History of upper GI bleed, hemorrhagic shock, required 3 units PRBC, EGD findings of - She had a planned outpatient EGD, which was recently canceled - She is on Brilinta 60 mg twice daily - Reports black tarry stools - History of iron deficiency anemia for which she is receiving IV iron infusions Plan - Received 1 unit PRBC - Monitor hemodynamics closely - IV fluids - Protonix - Carafate - General Surgery consulted, plan for EGD today - Continue Rocephin - Telemetry monitoring -History of CAD, status post RCA stenting, troponin series, EKG series, cardiology agreeable to hold Brilinta -Type 2 diabetes mellitus, low-dose sliding scale -UTI, Rocephin -Full code SCDs for DVT prophylaxis PDMP PDMP Reviewed: Not Reviewed Attestations Medical Necessity Statement*: Patient requires hospitalization for GI bleed, Diagnoses Coronary artery disease involving [place] coronary artery of [place] heart without angina pectoris I25.10 Coronary Disease-Associated Artery/Lesion type: [place] artery [place] vs. transplanted heart: [place] heart Associated angina: without angina Essential hypertension I10 Hypertension type: essential hypertension PAD (peripheral artery disease) I73.9 GI bleed K92.2 UTI (urinary tract infection) N39.0 Iron deficiency anemia, unspecified D50.9
[2024-11-24] MEDS: polyethylene glycol 3350 Pkt 17 gm PO (16:22)
[2024-11-24 16:55] LABS: Glucose Point of Care 87 mg/dL (70-110)
[2024-11-24] MEDS: amitriptyline 25 mg Tablet PO (20:24)
[2024-11-24] MEDS: acetaminophen 325 mg Tablet 650 MG PO (20:29)
[2024-11-24 20:50] LABS: Glucose Point of Care 142 mg/dL (70-110)
[2024-11-24] MEDS: insulin lispro 100 unit/1 mL SUBCUT (20:59)
[2024-11-25] VITALS (8 sets, daily range): BP systolic 122–144; BP diastolic 60–85; PULSE 63–104; RESP 17–19; TEMP 36.3–36.7; O2SAT 92–100
[2024-11-25 03:58] LABS: Basophils # 0.1 10^3/uL (0.0-0.1); Basophils % 1.1 %; Eosinophils # 0.4 10^3/uL (0.0-0.8); Eosinophils % 5.8 %; Hematocrit 27.7 % (36-47); Lymphocytes # 2.3 10^3/uL (0.8-4.8); Lymphocytes % 34.8 %; Mean Corpuscular HGB Conc 27.8 g/dL (30-55); Mean Corpuscular Hemoglobin 21.8 pg (27-33); Mean Corpuscular Volume 78.2 fl (85-98); Monocytes # 0.6 10^3/uL (0.2-0.9); Neutrophils # 3.18 10^3/uL (1.8-7.7); Neutrophils % 48.7 %; Nucleated Red Blood Cells % 0.5 %; Platelet Count 228 10^3/cmm (157-399); Red Blood Count 3.54 10^6/uL (3.85-5.65); Red Cell Distribution Width 18.2 % (12.1-15.1); White Blood Count 6.53 10^3/uL (3.29-11.43)
[2024-11-25] MEDS: pantoprazole 40 mg SDV IVP ×2 (04:01→16:31)
[2024-11-25] MEDS: sucralfate 1 gm/10 mL Oral Liq UDC PO ×3 (04:01→16:31)
[2024-11-25 04:21] LABS: Alanine Aminotransferase 8 U/L (0-33); Alkaline Phosphatase 83 U/L (35-105); Anion Gap 13.7 (5-19); Aspartate Amino Transferase 20 U/L (0-32); Blood Urea Nitrogen 8 mg/dL (8-23); Calcium 8.3 mg/dL (8.5-10.5); Carbon Dioxide 22 mmol/L (22-29); Chloride 111 mmol/L (98-107); Creatinine Clr Calc Pharmacy 51.9839; Globulin 2.7 g/dL (1.3-4.6); Glucose 85 mg/dL (65-115); Magnesium 1.8 mg/dL (1.7-2.3); Osmolality Calculated 294 mOsm/kg (285-295); Phosphorus 4.3 mg/dL (2.5-4.5); Potassium 3.7 mmol/L (3.5-5.1); Sodium 143 mmol/L (136-145); Total Bilirubin 0.8 mg/dL (0.15-1.2); Total Protein 5.7 g/dL (6.6-8.7)
[2024-11-25 06:18] LABS: Glucose Point of Care 109 mg/dL (70-110)
--- NOTE | 2024-11-25 09:54 | ECG_ITS ---
[facility] Test Date: 2024-11-25 Pat Name: Capri Tobar Department: Room: 275 Gender: Female Truss Maker: : 1945 Requested By: Killian Bates Order Number: [id number] Reading MD: ANGELIC GLEZ Measurements Intervals [place] Rate: 86 P: 59 CO: 156 QRS: 15 QRSD: 94 T: -22 QT: 359 QTc: 430 Interpretive Statements SINUS RHYTHM POSSIBLE INFERIOR MYOCARDIAL INFARCTION , OF INDETERMINATE AGE [30 ms Q WAVE IN II/aVF] Compared to ECG 11/23/2024 22:25:13 Ventricular premature complex(es) no longer present Myocardial infarct finding still present Electronically Signed On 11-25-2024 16:23:24 CDT by ANGELIC GLEZ [email or web address]
[2024-11-25] MEDS: gabapentin 300 mg Capsule PO ×2 (10:08→15:38)
[2024-11-25] MEDS: levothyroxine 75 mcg Tablet PO (10:08)
[2024-11-25 10:34] LABS: Troponin(5th) Baseline 8 ng/L (0-10)
--- NOTE | 2024-11-25 11:34 | ECG_ITS ---
[facility] Test Date: 2024-11-25 Pat Name: Capri Tobar Department: Room: 275 Gender: Female Pharmacy Service Associate: : 1945 Requested By: Killian Bates Order Number: [id number] Reading MD: ANGELIC GLEZ Measurements Intervals [place] Rate: 93 P: 56 DE: 155 QRS: 14 QRSD: 95 T: -27 QT: 360 QTc: 448 Interpretive Statements SINUS RHYTHM POSSIBLE INFERIOR MYOCARDIAL INFARCTION , OF INDETERMINATE AGE [30 ms Q WAVE IN II/aVF] Compared to ECG 11/25/2024 09:54:39 No significant changes Electronically Signed On 11-25-2024 16:23:54 CDT by ANGELIC GLEZ [email or web address]
[2024-11-25 11:36] LABS: Glucose Point of Care 151 mg/dL (70-110)
[2024-11-25] MEDS: insulin lispro 100 unit/1 mL SUBCUT (12:19)
--- NOTE | 2024-11-25 12:29 | PM.DCS ---
Discharge Providers Date of Admission: 11/23/24 15:12 Date of Discharge: November 25, 2024 Attending Provider at Admission: Killian Bates MD Attending Provider at Discharge: Killian Bates MD Primary Care Provider: Jenniffer Jenkins MD Diagnoses at Discharge Discharge Diagnosis (1) Coronary artery disease: Status: Acute Qualifiers: Coronary Disease-Associated Artery/Lesion type: [place] artery [place] vs. transplanted heart: [place] heart Associated angina: without angina Qualified Code(s): I25.10 - Atherosclerotic heart disease of [place] coronary artery without angina pectoris (2) HTN (hypertension): Status: Acute Qualifiers: Hypertension type: essential hypertension Qualified Code(s): I10 - Essential (primary) hypertension (3) PAD (peripheral artery disease): Status: Acute (4) GI bleed: Status: Acute (5) UTI (urinary tract infection): Status: Acute (6) Iron deficiency anemia, unspecified: Status: Acute Reason for Visit Reason for Visit: abd pain Hospital Course Hospital Course Capri Tobar is a 79 year old female with a past medical history of GI bleed/hemorrhagic shock back in July 2024, history of RCA stents on Brilinta, type 2 diabetes, hypertension, hyperlipidemia, who presents to [facility] due to complaints of weakness, fatigue, abdominal pain, epigastric pain, and complaints of black tarry stool. Currently patient is alert oriented x 3, following all commands, normotensive, on room air, her complaint currently is epigastric discomfort, according to patient, she had her Brilinta dose held for 5 days in preparation for repeat EGD however her procedure was canceled as the surgeon performing the procedure was not working, so she resumed the Brilinta, and her dose was decreased to 60 mg twice daily, she reports that she is getting iron transfusions, oncology, today was her first transfusion, she has been noticing black tarry stools, weakness, fatigue, no nausea, no vomiting, no lightheadedness, dizziness, she has not taken her Brilinta this morning Patient was admitted to [facility] for GI bleed, requiring inpatient admission, general surgery was consulted, managed on Protonix, Carafate, required 1 unit PRBC, EGD had no acute findings of bleeding. She was monitored thereafter, no recurrent bloody or black stools, hemoglobin stable at 8, hemodynamic stable. After discussion with cardiology decision was made to hold Brilinta, discussed with patient the risks and benefits, she voiced understanding, all questions answered, shared decision making, agreed to proceed, if any recurrent chest pain please go to the emergency room, follow-up with cardiology in 1 month. Patient was advised if she develops bloody black stools, please go to the emergency room. Have her primary care provider recheck her hemoglobin in 1 week. Referral has been made to follow-up with GI in [place] for consideration of capsule endoscopy and colonoscopy. For her iron deficiency anemia, follow-up with oncology to resume her iron transfusions, and for consideration of bone marrow biopsy Physical Exam Const: COMMON NORMALS: no acute distress and patient oriented x3 Resp: COMMON NORMALS: normal respiratory effort, No retractions, No use of accessory muscles and clear to auscultation bilaterally AUSCULTATION: clear to auscultation bilaterally Cardio: COMMON NORMALS: regular rate, regular rhythm, S1 normal heart sound present and S2 normal heart sound present RATE: regular rate RHYTHM: regular rhythm HEART SOUNDS: S1 normal heart sound present and S2 normal heart sound present GI: COMMON NORMALS: Normal to inspection, nondistended, normoactive bowel sounds present and non-tender Extremity: COMMON NORMALS: no pedal edema Neuro: COMMON NORMALS: patient oriented x3 Psych: COMMON NORMALS: mental status grossly normal Discharge Data Studies Completed and Pending Completed Studies During Hospitalization Category Date Time Status CT abdomen pelvis w con* [id number] Stat Cat Scan 11/23/24 11:56 Completed Pending at discharge Category Date Time Status Complete Blood Count w/Auto AM LABS Lab 11/26/24 04:00 Ordered Comprehensive Metabolic Panel AM LABS Lab 11/26/24 04:00 Ordered Immunochemical Fecal OCB Stat Lab 11/23/24 13:03 Uncollected Magnesium AM LABS Lab 11/26/24 04:00 Ordered Occult Blood Stool [Immunochemical Fecal OCB] Stat Lab 11/24/24 16:05 Uncollected Phosphorus AM LABS Lab 11/26/24 04:00 Ordered Troponin(5th) 2 Hour. Timed Lab 11/25/24 12:10 Ordered Troponin(5th) 6 hour. Timed Lab 11/25/24 16:10 Ordered Radiology Impressions Abdomen/Pelvis CT 11/23/24 11:56 IMPRESSION: 1. Small esophageal hiatal hernia. 2. Fatty liver. 3. Prior cholecystectomy. 4. Diverticulosis. 5. Bilateral ovarian cysts larger on the RIGHT measuring 2.5 cm 6. Advanced spondylitic changes lumbar spine. 7. Tiny fat-containing umbilical hernia. Laboratory Results WBC 6.53 10^3/uL (3.29-11.43) 11/25/24 03:13 RBC 3.54 10^6/uL (3.85-5.65) L 11/25/24 03:13 Hgb 8.00 g/dL (11.27-16.99) L 11/25/24 08:41 Hct 29.0 % (36-47) L 11/25/24 08:41 MCV 78.2 fl (85-98) L 11/25/24 03:13 MCH 21.8 pg (27-33) L 11/25/24 03:13 MCHC 27.8 g/dL (30-55) L 11/25/24 03:13 RDW 18.2 % (12.1-15.1) H 11/25/24 03:13 Plt Count 228 10^3/cmm (157-399) 11/25/24 03:13 MPV 10.0 fL (7.4-10.4) 11/25/24 03:13 Neut % (Auto) 48.7 % 11/25/24 03:13 Lymph % (Auto) 34.8 % 11/25/24 03:13 [place] % (Auto) 9.0 % 11/25/24 03:13 Eos % (Auto) 5.8 % 11/25/24 03:13 Baso % (Auto) 1.1 % 11/25/24 03:13 Neut # (Auto) 3.18 10^3/uL (1.8-7.7) 11/25/24 03:13 Lymph # (Auto) 2.3 10^3/uL (0.8-4.8) 11/25/24 03:13 [place] # (Auto) 0.6 10^3/uL (0.2-0.9) 11/25/24 03:13 Eos # (Auto) 0.4 10^3/uL (0.0-0.8) 11/25/24 03:13 Baso # (Auto) 0.1 10^3/uL (0.0-0.1) 11/25/24 03:13 Nucleated RBC % (auto) 0.5 % 11/25/24 03:13 Nucleated RBCs # 0.0 /100WBC 11/25/24 03:13 PT 14.10 SECONDS (12.1-14.9) 11/23/24 11:46 INR 1.02 (0.8-1.2) 11/23/24 11:46 APTT 35.9 SECONDS (23.9-36.7) 11/23/24 11:46 Sodium 143 mmol/L (136-145) 11/25/24 03:13 Potassium 3.7 mmol/L (3.5-5.1) 11/25/24 03:13 Chloride 111 mmol/L (98-107) H 11/25/24 03:13 Carbon Dioxide 22 mmol/L (22-29) 11/25/24 03:13 Anion Gap 13.7 (5-19) 11/25/24 03:13 BUN 8 mg/dL (8-23) 11/25/24 03:13 Creatinine 0.6 mg/dL (0.5-0.9) 11/25/24 03:13 GFR Calculation Not Reportable 11/25/24 03:13 Glucose 85 mg/dL (65-115) 11/25/24 03:13 POC Glucose 151 mg/dL (70-110) H 11/25/24 11:28 Calculated Osmolality 294 mOsm/kg (285-295) 11/25/24 03:13 Lactic Acid 1.2 mmol/L (0.5-2.2) 11/23/24 15:02 Calcium 8.3 mg/dL (8.5-10.5) L 11/25/24 03:13 Phosphorus 4.3 mg/dL (2.5-4.5) 11/25/24 03:13 Magnesium 1.8 mg/dL (1.7-2.3) 11/25/24 03:13 Iron 290 ug/dL (37-145) H 11/23/24 11:46 TIBC 369 mcg/dl 11/23/24 11:46 % Saturation 78.5 % (20-50) H 11/23/24 11:46 Unsat Iron Binding 79 ug/dL (112-347) L 11/23/24 11:46 Ferritin 203 ng/mL (15-150) H 11/23/24 11:46 Total Bilirubin 0.8 mg/dL (0.15-1.2) 11/25/24 03:13 AST 20 U/L (0-32) 11/25/24 03:13 ALT 8 U/L (0-33) 11/25/24 03:13 Alkaline Phosphatase 83 U/L (35-105) 11/25/24 03:13 Troponin T Baseline 8 ng/L (0-10) 11/25/24 10:10 Troponin T 120 Minute 9.94 ng/L (0-10) 11/23/24 17:15 Delta Troponin T 1.94 ABS# (0-10) 11/23/24 17:15 Troponin T Hi Sens 6Hr 10.53 ng/L (0-10) H 11/23/24 21:43 Troponin T Hi Sens 6Hr Delta 2.53 ng/L (0-12) 11/23/24 21:43 NT-Pro-B Natriuret Pep 912 pg/mL (0-450) H 11/23/24 11:46 Total Protein 5.7 g/dL (6.6-8.7) L 11/25/24 03:13 Albumin 3.0 g/dL (3.5-5.2) L 11/25/24 03:13 Globulin 2.7 g/dL (1.3-4.6) 11/25/24 03:13 Lipase 33 U/L (13-60) 11/23/24 11:46 Urine Color Yellow (Yellow) 11/23/24 12:18 Urine Appearance Clear (CLEAR) 11/23/24 12:18 Urine pH 5.5 (5-7) 11/23/24 12:18 Ur Specific Ecru 1.018 (1.005-1.030) 11/23/24 12:18 Urine Protein Negative (Negative) 11/23/24 12:18 Urine Glucose (UA) Negative (Normal) 11/23/24 12:18 Urine Ketones Trace (Negative) 11/23/24 12:18 Urine Blood Negative (Negative) 11/23/24 12:18 Urine Nitrate Negative (Negative) 11/23/24 12:18 Urine Bilirubin Negative (Negative) 11/23/24 12:18 Urine Urobilinogen 1.0 mg/dL (Negative) 11/23/24 12:18 Ur Leukocyte Esterase 2+ (Negative) A 11/23/24 12:18 Urine RBC 6-10 /hpf (0-2) 11/23/24 12:18 Urine WBC 21-50 /hpf (0-5) H 11/23/24 12:18 Ur Squamous Epith Cells 11-20 /hpf (0-5) H 11/23/24 12:18 Amorphous Sediment Not Reportable 11/23/24 12:18 Urine Bacteria 2+ /hpf (NONE) H 11/23/24 12:18 Hyaline Casts 2.87 /lpf 11/23/24 12:18 Urine Yeast 2+ /hpf H 11/23/24 12:18 Blood Type B Negative 11/23/24 13:17 Rho(D) Type Rh negative 11/23/24 13:17 Antibody Screen Negative 11/23/24 13:17 Crossmatch See Detail 11/23/24 13:17 Vitals Last Vital Signs Temp 97.8 F 11/25/24 11:59 Pulse 78 11/25/24 11:59 Resp 18 11/25/24 11:59 BP 128/75 11/25/24 11:59 Pulse Ox 99 11/25/24 11:59 O2 Del Method Nasal Cannula 11/25/24 11:59 O2 Flow Rate 2 11/25/24 10:12 Discharge Plan Discharge Patient Disposition: Home Condition: Stable Prescriptions: New sucralfate [Carafate] 1 gram tablet 1 g PO BID 28 Days Qty: 56 0RF cefdinir 300 mg capsule 300 mg PO BID 5 Days Qty: 10 0RF Continued acetaminophen [Tylenol Arthritis Pain] 650 mg tablet extended release 1,300 mg PO BID allopurinol 100 mg tablet 100 mg PO BEDTIME amitriptyline 25 mg tablet 25 mg PO BEDTIME Culturelle 10 billion cell capsule 1 cap PO DAILY metoprolol tartrate 25 mg tablet 25 mg PO BID@0900,2100 Qty: 120 3RF atorvastatin 80 mg tablet 80 mg PO BEDTIME Qty: 90 3RF gabapentin 300 mg capsule 300 mg PO TID albuterol sulfate 90 mcg/actuation HFA aerosol inhaler 2 inh INHALATION Q4H PRN (Reason: shortness of breath or wheezing) Qty: 6.7 1RF levothyroxine 75 mcg tablet 75 mcg PO DAILY Jardiance 25 mg tablet 25 mg PO DAILY tramadol 50 mg tablet 50 mg PO Q8H PRN (Reason: Pain) baclofen 10 mg tablet 5 mg PO BID pantoprazole 40 mg tablet,delayed release (DR/EC) 40 mg PO BID 30 Days Qty: 60 0RF Changed insulin glargine [Lantus Solostar U-100 Insulin] 100 unit/mL (3 mL) insulin pen 10 unit SUBCUT DAILY Qty: 15 0RF Discharge Orders: Discharge Order (Routine); Ordered 11/25/24 Ordered By: Killian Bates Referrals: Jenniffer Jenkins MD [Primary Care Provider, Internal Medicine] - 1-3 days Referral Note: We have notified your physician's clinic of the need for a follow-up appointment to be scheduled. If you have not heard from them within the next 2 business days, please call them directly. Nithin Paz MD [Referring, Internal Medicine] Referral Note: GI colonoscopy and capsule endoscopy We have notified your physician's clinic of the need for a follow-up appointment to be scheduled. If you have not heard from them within the next 2 business days, please call them directly. Quang Curran MD [Hospitalist, Oncology] - 1 week Referral Note: We have notified your physician's clinic of the need for a follow-up appointment to be scheduled. If you have not heard from them within the next 2 business days, please call them directly. Discharge Diet: Cardiac Discharge Activity: Resume usual activity Patient Instructions: GI Post Discharge Instructions w/ Anesthesia, Opioid Safety Activity Restrictions/Additional Instructions: - Please stop taking Brilinta - Please follow-up with gastroenterology in [place] in 1 month for consideration of colonoscopy, capsule endoscopy - Follow-up with oncology - Follow-up with cardiology - Have your primary care provider recheck your hemoglobin in 1 week - If you develop bloody black stools please go to the emergency room Discharge Attestations Time Spent in Discharge Care*: greater than 30 min Quality Metrics Clinical Quality Measures [ No reported AMI, CVA or VTE this stay] Coding Level of Care Code 00412 Total time (in minutes) for Discharge: 45 Diagnoses Coronary artery disease involving [place] coronary artery of [place] heart without angina pectoris I25.10 Coronary Disease-Associated Artery/Lesion type: [place] artery [place] vs. transplanted heart: [place] heart Associated angina: without angina Essential hypertension I10 Hypertension type: essential hypertension PAD (peripheral artery disease) I73.9 GI bleed K92.2 UTI (urinary tract infection) N39.0 Iron deficiency anemia, unspecified D50.9
[2024-11-25 13:26] LABS: Troponin 5 2HR 7.75 ng/L (0-10)
[2024-11-25 13:30] LABS: Troponin 5 2HR Delta -0.25 ABS# (0-10)
--- NOTE | 2024-11-25 14:01 | PM.PN ---
Subjective Subjective: No symptoms Vitals/I&O/Wt Last Vital Signs Temp 97.8 F 11/25/24 11:59 Pulse 78 11/25/24 11:59 Resp 18 11/25/24 11:59 BP 128/75 11/25/24 11:59 Pulse Ox 99 11/25/24 11:59 O2 Del Method Nasal Cannula 11/25/24 11:59 O2 Flow Rate 2 11/25/24 10:12 11/24/24 11/25/24 11/25/24 22:59 06:59 14:59 Intake Total 1240 / 1540 240 / 240 Balance 1240 / 1540 240 / 240 Weight last 48 hrs Weight 144 lb 12.8 oz Weight 142 lb 11.2 oz Physical Exam Const: OTHER: GENERAL: Patient is alert, awake and oriented x3. HEART: Regular S1 and S2. No murmur, rub or gallop. LUNGS: Clear to auscultate bilaterally. CENTRAL NERVOUS SYSTEM: Grossly nonfocal. EXTREMITIES: Lower extremities with out edema bilaterally. Data 11/25/24 08:41 11/25/24 03:13 Micro: Microbiology 11/23/24 12:18 Urine Culture - Final Urine,Clean Catch A&P Assessment and plan (1) Coronary artery disease: (2) HTN (hypertension): (3) PAD (peripheral artery disease): (4) GI bleed: Plan Patient doing fine from a cardiovascular perspective. Remains stable denies any chest pain. Continue holding dual antiplatelet therapy. Continue rest of home medications. PDMP PDMP Reviewed: Not Reviewed Attestations Medical Necessity Statement*: As per medicine Coding Level of Care Code Acute Code for [facility] Fwd Diagnoses Coronary artery disease involving [place] coronary artery of [place] heart without angina pectoris I25.10 Coronary Disease-Associated Artery/Lesion type: [place] artery [place] vs. transplanted heart: [place] heart Associated angina: without angina Essential hypertension I10 Hypertension type: essential hypertension PAD (peripheral artery disease) I73.9 GI bleed K92.2
[2024-11-25] MEDS: cefTRIAXone 1,000 mg SDV 1000 MG IVP (15:38)
--- NOTE | 2024-11-25 16:00 | ECG_ITS ---
[facility] (Former[facility]) Test Date: 2024-11-25 Pat Name: Capri Tobar Department: Room: 275 Gender: Female [employer] Officer: : 1945 Requested By: Killian Bates Order Number: [id number] Reading MD: ANGELIC GLEZ Measurements Intervals [place] Rate: 83 P: 56 PA: 164 QRS: 20 QRSD: 89 T: -20 QT: 362 QTc: 427 Interpretive Statements SINUS RHYTHM MINIMAL ST DEPRESSION [0.025+ mV ST DEPRESSION] Compared to ECG 11/25/2024 13:55:18 ST (T wave) deviation now present Myocardial infarct finding no longer present Electronically Signed On 11-25-2024 16:23:39 CDT by ANGELIC GLEZ [email or web address]
[2024-11-25 17:13] LABS: Glucose Point of Care 152 mg/dL (70-110)
--- NOTE | 2024-11-25 17:45 | PC.NURSE ---
Discharge paperwork discussed with patient. All questions were answered. Patient stated, I'm not following up with them in [place]. I've already seen that doctor and didn't like him. This nurse educated patient that she could have her PCP refer her to a different specialist. IVs were removed and pressure dressing applied.
== END 2024-11-25 17:45 | disposition home or self-care (01) ==
LOC: ER 14:52 → MEDSURG 14:54
PROVIDERS: Physician Assistant; Surgery; Admitting Provider Family Medicine; Emergency Provider Family Medicine; PCP Internal Medicine; Visit Provider Family Medicine
PROC: 0DJ08ZZ Inspection of Upper Intestinal Tract, Via Natural or Artificial Opening Endoscopic (ICD-10-PCS; principal; 2024-11-24 12:00)
DX: D50.9 Iron deficiency anemia, unspecified (principal); K92.2 Gastrointestinal hemorrhage, unspecified; I25.10 Atherosclerotic heart disease of native coronary artery without angina pectoris; I10 Essential (primary) hypertension; I73.9 Peripheral vascular disease, unspecified; N39.0 Urinary tract infection, site not specified; K21.9 Gastro-esophageal reflux disease without esophagitis; Z95.5 Presence of coronary angioplasty implant and graft; Z86.2 Personal history of diseases of the blood and blood-forming organs and certain disorders involving the immune mechanism; E11.9 Type 2 diabetes mellitus without complications; E78.5 Hyperlipidemia, unspecified; I25.2 Old myocardial infarction; Z87.891 Personal history of nicotine dependence; G47.30 Sleep apnea, unspecified; E07.9 Disorder of thyroid, unspecified; Z83.3 Family history of diabetes mellitus; Z82.49 Family history of ischemic heart disease and other diseases of the circulatory system; Z79.01 Long term (current) use of anticoagulants
CPT/HCPCS: 36415; 36416; 36430; 43235; 74177; 80053; 81001; 82728; 82962; 83540; 83550; 83605; 83690; 83735; 83880; 84100; 84484; 85014; 85018; 85025; 85610; 85730; 86850; 86900; 86920; 87086; 93005; 94664; 96361; 96372; 96374; 96375; 99285; G0378; J0696; J1815; J2405; J2470; J2704; J7030; J7040; J9999; P9016

== ENCOUNTER → 2024-11-28 14:32 | Outpatient (BNVA) | payer MEDICARE, SELFPAY | PROVIDERS: PCP Internal Medicine; Visit Provider Internal Medicine | DX: I25.10 Atherosclerotic heart disease of native coronary artery without angina pectoris (principal); I73.9 Peripheral vascular disease, unspecified; I10 Essential (primary) hypertension; Z95.5 Presence of coronary angioplasty implant and graft; Z87.891 Personal history of nicotine dependence; I25.2 Old myocardial infarction | CPT/HCPCS: 99214 ==

== ENCOUNTER 2024-11-29 14:00 | Oncology outpatient (recurring) (ONCR) | payer MEDICARE, SELFPAY ==
[2024-11-22] MEDS: iron sucrose 300 MG in sodium chloride 0.9% (100 ml) 100 ML 200 MG IV (14:57)
--- NOTE | 2024-11-22 16:11 | XR_ITS ---
WS: [id number] XR shoulder RT min 2V* [id number] REASON FOR EXAM: PAIN IN RIGHT SHOULDER FINDINGS: No acute fracture. Acromioclavicular joint intact without significant narrowing. Moderate marginal osteophytosis. Moderate lateral downward slant of the acromial process possible narrowing narrowing of the acromial humeral interval. The glenohumeral joint space is not clearly demonstrated due to positioning. Likely there is at least moderate narrowing. There is mild osteophytosis of the humeral head. There is a spiculated area of calcification in the intramedullary portion of the surgical neck. 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 XR/XR shoulder RT min 2V* [id number] IMPRESSION: No acute abnormality. No significant bone lesion. Moderate osteoarthritis of the acromioclavicular joint and probably the glenohu meral joint. Some soft findings which may indicate rotator cuff tendinopathy.
[2024-11-22 16:30] VITALS: BP 112/62; PULSE 84; RESP 16; TEMP 36.8; O2SAT 94
[2024-11-29] MEDS: sodium chloride 0.9% 250 ML 150 ML IV (13:47)
[2024-11-29] MEDS: iron sucrose 300 MG in sodium chloride 0.9% (100 ml) 100 ML 200 MG IV (13:49)
[2024-11-29 14:46] VITALS: BP 159/68; PULSE 65; RESP 17; TEMP 37.1; O2SAT 97
== END 2024-12-16 23:59 | disposition home or self-care (01) ==
PROVIDERS: PCP Internal Medicine; Visit Provider Internal Medicine
DX: Z53.9 Procedure and treatment not carried out, unspecified reason (principal); D50.9 Iron deficiency anemia, unspecified; Z79.899 Other long term (current) drug therapy
CPT/HCPCS: 73030; 96365; J1756; J7050

== ENCOUNTER 2024-12-20 14:27 | Outpatient (CLI) | payer MEDICARE, SELFPAY | END 2024-12-20 14:28 | disposition home or self-care (01) | LOC: RAD 15:22 | PROVIDERS: PCP Internal Medicine; Visit Provider Podiatrist Foot & Ankle Surgery | DX: S93.135A Subluxation of interphalangeal joint of left lesser toe(s), initial encounter (principal); S93.142A Subluxation of metatarsophalangeal joint of left great toe, initial encounter; X58.XXXA Exposure to other specified factors, initial encounter; L03.90 Cellulitis, unspecified; L97.522 Non-pressure chronic ulcer of other part of left foot with fat layer exposed; M19.072 Primary osteoarthritis, left ankle and foot; R93.6 Abnormal findings on diagnostic imaging of limbs; M77.8 Other enthesopathies, not elsewhere classified | CPT/HCPCS: 73630; 87070; 87075; 87205 ==

== ENCOUNTER 2024-12-20 15:56 | Outpatient (CLI) | payer MEDICARE, SELFPAY | END 2024-12-20 15:57 | disposition home or self-care (01) | LOC: SPT 15:57 | PROVIDERS: PCP Internal Medicine; Visit Provider Podiatrist Foot & Ankle Surgery | DX: Z46.89 Encounter for fitting and adjustment of other specified devices (principal); S91.102D Unspecified open wound of left great toe without damage to nail, subsequent encounter; X58.XXXD Exposure to other specified factors, subsequent encounter | CPT/HCPCS: L4361 ==

== ENCOUNTER → 2024-12-25 13:53 | Outpatient (BNVA) | payer MEDICARE, SELFPAY | PROVIDERS: PCP Internal Medicine; Visit Provider Podiatrist Foot & Ankle Surgery | DX: I73.9 Peripheral vascular disease, unspecified (principal); E11.42 Type 2 diabetes mellitus with diabetic polyneuropathy; R09.89 Other specified symptoms and signs involving the circulatory and respiratory systems; L03.032 Cellulitis of left toe; L97.522 Non-pressure chronic ulcer of other part of left foot with fat layer exposed; I25.10 Atherosclerotic heart disease of native coronary artery without angina pectoris; E11.621 Type 2 diabetes mellitus with foot ulcer; Z79.4 Long term (current) use of insulin | CPT/HCPCS: 99213 ==

== ENCOUNTER → 2025-01-02 11:06 | Outpatient (BNVA) | payer MEDICARE, SELFPAY | PROVIDERS: PCP Internal Medicine; Visit Provider Podiatrist Foot & Ankle Surgery | DX: I73.9 Peripheral vascular disease, unspecified (principal); E11.42 Type 2 diabetes mellitus with diabetic polyneuropathy; R09.89 Other specified symptoms and signs involving the circulatory and respiratory systems; E11.621 Type 2 diabetes mellitus with foot ulcer; L97.522 Non-pressure chronic ulcer of other part of left foot with fat layer exposed; I25.10 Atherosclerotic heart disease of native coronary artery without angina pectoris; Z79.4 Long term (current) use of insulin | CPT/HCPCS: 99214 ==

== ENCOUNTER 2025-01-03 12:19 | Outpatient (CLI) | payer MEDICARE, SELFPAY ==
[2025-01-03] MEDS: iohexol 350 mg/mL 500 mL Btl (per mL) IV (12:50)
--- NOTE | 2025-01-03 14:15 | CTR_ITS ---
PROCEDURE INFORMATION: Exam: CTA Abdominal Aorta and Bilateral Lower Extremities (Run-off) With Contrast Exam date and time: 01/03/2025 12:49 PM Age: 79 years old Clinical indication: Other: Non-healing ulcer to left foot, decreased pedal pulses left; Prior surgery; Surgery date: 6+ months; Surgery type: Gb, femoral pop TECHNIQUE: Imaging protocol: Computed tomographic angiography of the of the abdominal aorta, pelvis and bilateral lower extremities with contrast. 3D rendering (Not supervised by radiologist): MIP and/or 3D reconstructed images were created by the technologist. Radiation optimization: All CT scans at this facility use at least one of these dose optimization techniques: automated exposure control; mA and/or kV adjustment per patient size (includes targeted exams where dose is matched to clinical indication); or iterative reconstruction. Contrast material: OMNI 350; Contrast volume: 125 ml; Contrast route: INTRAVENOUS (IV); COMPARISON: CT abdomen pelvis w con* [id number] 11/23/2024 12:38 PM RADIATION DOSE METRICS: Total DLP (mGy-cm): 1420.21 FINDINGS: Aorta: No evidence of abdominal aortic aneurysm or significant aortic stenosis. Celiac trunk and mesenteric arteries: No significant SMA stenosis. No significant celiac stenosis. MACEY is patent. Renal arteries: Mild bilateral proximal renal artery stenosis. Right iliac arteries: Mild right common iliac artery stenosis. Moderate stenosis of the distal right external iliac artery (series 5, image 361). Right femoral/popliteal arteries: No significant right common femoral artery stenosis. No significant right SFA or right popliteal stenosis. Right infrapopliteal arteries: High-grade atherosclerotic stenosis of the right tibioperoneal trunk (series 5, image 805). Multilevel stenoses of the right anterior tibial artery with some reconstituted flow in the level of the ankle and foot. Multilevel stenoses of the right peroneal artery without demonstrated flow in the mid to distal calf. Mild stenoses of the right posterior tibial artery with runoff at the foot and ankle. Left iliac arteries: High-grade stenosis of the proximal left common iliac artery. Occluded left external iliac artery. Left femoral/popliteal arteries: Reconstituted flow in the left common femoral artery which demonstrates moderate stenosis. No significant stenosis of the left SFA. Left infrapopliteal arteries: Moderate stenosis of the left proximal tibioperoneal trunk on series 5, image 808. Multilevel mild stenoses of the left anterior tibial artery which is patent into the foot. No significant flow is demonstrated in the left posterior tibial artery. Multilevel [id number] stenoses of the left peroneal artery with some reconstitution just above the ankle. Other arteries: Occluded femoral femoral bypass graft. Lungs: Peripheral interstitial reticulation and bronchial wall thickening are present in the lung bases. There are some traction bronchiolectasis in the lower lungs also noted. Coronary arteries: Coronary artery calcifications. Liver: No significant liver pathology. Gallbladder and biliary ducts: Prior cholecystectomy. No biliary dilatation. Pancreas: Unchanged low-attenuation structure in the uncinate process measuring 1 cm on series 5, image 143. No pancreatic ductal dilatation evident. Spleen: No significant splenic pathology. Adrenal glands: No significant adrenal pathology. Kidneys and ureters: There are renal cortical cysts and subcentimeter cortical hypodensities which are indeterminate by criteria but statistically most likely represent cysts. Stomach and bowel: Colonic diverticulosis without evidence of focal inflammatory change. Appendix: No evidence of appendicitis. Urinary bladder: Unremarkable urinary bladder. Reproductive: No significant uterine pathology. Right ovarian cyst again noted measuring up to 3.2 cm in greatest dimension. Left adnexa unremarkable. Intraperitoneal space: No ascites. Lymph nodes: No evidence of lymphadenopathy. Bones/joints: Levocurvature of the lumbar spine with degenerative change noted. Mild degenerative change bilateral hip joints. 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 Mild degenerative changes of the bilateral feet. Soft tissues: Unremarkable. Other findings: No significant left popliteal stenosis. CT/CT angio abd aorta runof [id number] IMPRESSION: 1. Occluded femoral femoral bypass graft. 2. Moderate right external iliac artery stenosis. No significant right femoropopliteal stenosis. High-grade stenosis of the proximal right tibioperoneal trunk with 2 vessel runoff to the foot and ankle . 3. High-grade stenosis of the proximal left common iliac artery and occluded left external iliac artery. Moderate left common femoral artery stenosis. No significant flow in left posterior tibial artery and 2 vessel runoff to the foot and ankle. 4. Right ovarian cyst measuring 3.2 cm; given patient's age, ultrasound could be performed for more detailed assessment. 5. 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
== END 2025-01-03 12:20 | disposition home or self-care (01) ==
PROVIDERS: PCP Internal Medicine; Visit Provider Podiatrist Foot & Ankle Surgery
DX: I70.211 Atherosclerosis of native arteries of extremities with intermittent claudication, right leg (principal); I25.10 Atherosclerotic heart disease of native coronary artery without angina pectoris; E11.42 Type 2 diabetes mellitus with diabetic polyneuropathy; L03.90 Cellulitis, unspecified; L97.522 Non-pressure chronic ulcer of other part of left foot with fat layer exposed; R09.89 Other specified symptoms and signs involving the circulatory and respiratory systems; I70.1 Atherosclerosis of renal artery; I70.8 Atherosclerosis of other arteries; M76.811 Anterior tibial syndrome, right leg; I70.92 Chronic total occlusion of artery of the extremities; I74.5 Embolism and thrombosis of iliac artery; N83.201 Unspecified ovarian cyst, right side; R93.5 Abnormal findings on diagnostic imaging of other abdominal regions, including retroperitoneum
CPT/HCPCS: 75635

== ENCOUNTER 2025-01-08 14:43 | Oncology outpatient (recurring) (ONCR) | payer MEDICARE, SELFPAY ==
[2025-01-08 15:54] LABS: Basophils # 0.1 10^3/uL (0.0-0.1); Basophils % 0.7 %; Eosinophils # 0.3 10^3/uL (0.0-0.8); Hematocrit 44.5 % (36-47); Lymphocytes # 2.3 10^3/uL (0.8-4.8); Lymphocytes % 23.2 %; Mean Corpuscular HGB Conc 28.5 g/dL (30-55); Mean Corpuscular Hemoglobin 23.1 pg (27-33); Mean Corpuscular Volume 81.1 fl (85-98); Mean Platelet Volume 9.7 fL (7.4-10.4); Monocytes # 0.6 10^3/uL (0.2-0.9); Neutrophils # 6.47 10^3/uL (1.8-7.7); Neutrophils % 66.8 %; Nucleated Red Blood Cells % 0 %; Platelet Count 316 10^3/cmm (157-399); Red Blood Count 5.49 10^6/uL (3.85-5.65); Red Cell Distribution Width 22.3 % (12.1-15.1); White Blood Count 9.69 10^3/uL (3.29-11.43)
[2025-01-08 16:31] LABS: Alanine Aminotransferase 27 U/L (0-33); Albumin Level 3.9 g/dL (3.5-5.2); Alkaline Phosphatase 100 U/L (35-105); Anion Gap 17.2 (5-19); Aspartate Amino Transferase 34 U/L (0-32); Blood Urea Nitrogen 15 mg/dL (8-23); Carbon Dioxide 21 mmol/L (22-29); Chloride 108 mmol/L (98-107); Creatinine Clr Calc Pharmacy 52.5137; Ferritin 17 ng/mL (15-150); Globulin 3.5 g/dL (1.3-4.6); Glucose 194 mg/dL (65-115); Iron 28 ug/dL (37-145); Osmolality Calculated 300 mOsm/kg (285-295); Percent Saturation 7.5 % (20-50); Potassium 4.2 mmol/L (3.5-5.1); Sodium 142 mmol/L (136-145); Total Bilirubin 0.6 mg/dL (0.15-1.2); Total Iron Binding Capacity 371 mcg/dl; Total Protein 7.4 g/dL (6.6-8.7); Unsaturated Iron Binding 343 ug/dL (112-347)
[2025-01-08 16:46] LABS: Vitamin B12 425 pg/mL (232-1245)
== END 2025-01-15 23:59 | disposition home or self-care (01) ==
LOC: ONCMED 14:43
PROVIDERS: Internal Medicine; PCP Internal Medicine; Visit Provider Internal Medicine
DX: D50.9 Iron deficiency anemia, unspecified (principal); D64.9 Anemia, unspecified; Z79.899 Other long term (current) drug therapy
CPT/HCPCS: 36415; 80053; 82607; 82728; 82746; 83540; 83550; 85025; 99204

== ENCOUNTER → 2025-01-11 09:55 | Outpatient (BNVA) | payer MEDICARE, SELFPAY | PROVIDERS: PCP Internal Medicine; Visit Provider Podiatrist Foot & Ankle Surgery | DX: I73.9 Peripheral vascular disease, unspecified (principal); E11.42 Type 2 diabetes mellitus with diabetic polyneuropathy; R09.89 Other specified symptoms and signs involving the circulatory and respiratory systems; E11.621 Type 2 diabetes mellitus with foot ulcer; L97.522 Non-pressure chronic ulcer of other part of left foot with fat layer exposed; I25.10 Atherosclerotic heart disease of native coronary artery without angina pectoris; Z79.4 Long term (current) use of insulin | CPT/HCPCS: 99213 ==

== ENCOUNTER → 2025-01-17 12:49 | Outpatient (BNVA) | payer MEDICARE, SELFPAY | PROVIDERS: PCP Internal Medicine; Visit Provider Internal Medicine Cardiovascular Disease | DX: I25.10 Atherosclerotic heart disease of native coronary artery without angina pectoris (principal); I73.9 Peripheral vascular disease, unspecified; Z87.891 Personal history of nicotine dependence; I10 Essential (primary) hypertension; I25.2 Old myocardial infarction | CPT/HCPCS: 99204 ==

== ENCOUNTER → 2025-01-31 11:17 | Outpatient (BNVA) | payer MEDICARE, SELFPAY | PROVIDERS: PCP Internal Medicine; Visit Provider Podiatrist Foot & Ankle Surgery | DX: I73.9 Peripheral vascular disease, unspecified (principal); E11.42 Type 2 diabetes mellitus with diabetic polyneuropathy; R09.89 Other specified symptoms and signs involving the circulatory and respiratory systems; E11.621 Type 2 diabetes mellitus with foot ulcer; L97.522 Non-pressure chronic ulcer of other part of left foot with fat layer exposed; I25.10 Atherosclerotic heart disease of native coronary artery without angina pectoris; Z79.4 Long term (current) use of insulin | CPT/HCPCS: 99213 ==

== ENCOUNTER 2025-02-01 07:30 | Oncology outpatient (recurring) (ONCR) | payer MEDICARE, SELFPAY ==
[2025-02-01] MEDS: diphenhydrAMINE 50 mg/mL SDV 1mL 25 MG IVP (10:03)
[2025-02-01] MEDS: IRON DEXTRAN IV (12:12)
[2025-02-01] MEDS: SODIUM CHLORIDE 0.9% IV (12:12)
[2025-02-01 16:46] VITALS: BP 173/79; PULSE 79; RESP 18; TEMP 36.3; O2SAT 96
== END 2025-02-15 23:59 | disposition home or self-care (01) ==
PROVIDERS: PCP Internal Medicine; Visit Provider Internal Medicine
DX: D50.0 Iron deficiency anemia secondary to blood loss (chronic); R03.0 Elevated blood-pressure reading, without diagnosis of hypertension; F41.9 Anxiety disorder, unspecified; Z79.899 Other long term (current) drug therapy; Z87.891 Personal history of nicotine dependence; Z71.89 Other specified counseling; Z53.9 Procedure and treatment not carried out, unspecified reason
CPT/HCPCS: 96365; 96366; 96375; 99213; 99215; J1200; J1750; J7030; J7040

== ENCOUNTER → 2025-02-14 11:26 | Outpatient (BNVA) | payer MEDICARE, SELFPAY | PROVIDERS: PCP Internal Medicine; Visit Provider Podiatrist Foot & Ankle Surgery | DX: E11.621 Type 2 diabetes mellitus with foot ulcer (principal); L97.522 Non-pressure chronic ulcer of other part of left foot with fat layer exposed; M20.42 Other hammer toe(s) (acquired), left foot; I73.9 Peripheral vascular disease, unspecified; E11.42 Type 2 diabetes mellitus with diabetic polyneuropathy; R09.89 Other specified symptoms and signs involving the circulatory and respiratory systems; I25.10 Atherosclerotic heart disease of native coronary artery without angina pectoris; L97.523 Non-pressure chronic ulcer of other part of left foot with necrosis of muscle; L03.116 Cellulitis of left lower limb; Z79.4 Long term (current) use of insulin | CPT/HCPCS: 11043; 28010; 28011; 87070; 87075; 87205; 99214 ==

== ENCOUNTER → 2025-02-22 09:14 | Outpatient (BNVA) | payer MEDICARE, SELFPAY | PROVIDERS: PCP Internal Medicine; Visit Provider Podiatrist Foot & Ankle Surgery | DX: E11.621 Type 2 diabetes mellitus with foot ulcer (principal); L97.523 Non-pressure chronic ulcer of other part of left foot with necrosis of muscle; L97.524 Non-pressure chronic ulcer of other part of left foot with necrosis of bone; I73.9 Peripheral vascular disease, unspecified; E11.42 Type 2 diabetes mellitus with diabetic polyneuropathy; L97.522 Non-pressure chronic ulcer of other part of left foot with fat layer exposed; R09.89 Other specified symptoms and signs involving the circulatory and respiratory systems; I25.10 Atherosclerotic heart disease of native coronary artery without angina pectoris; M20.42 Other hammer toe(s) (acquired), left foot; L03.116 Cellulitis of left lower limb; Z79.4 Long term (current) use of insulin | CPT/HCPCS: 11042; 73630; 99214 ==

== ENCOUNTER → 2025-02-26 10:05 | Outpatient (BNVA) | payer MEDICARE, SELFPAY | PROVIDERS: PCP Internal Medicine; Visit Provider Podiatrist Foot & Ankle Surgery | DX: E11.621 Type 2 diabetes mellitus with foot ulcer (principal); L97.523 Non-pressure chronic ulcer of other part of left foot with necrosis of muscle; I73.9 Peripheral vascular disease, unspecified; E11.42 Type 2 diabetes mellitus with diabetic polyneuropathy; R09.89 Other specified symptoms and signs involving the circulatory and respiratory systems; L97.522 Non-pressure chronic ulcer of other part of left foot with fat layer exposed; I25.10 Atherosclerotic heart disease of native coronary artery without angina pectoris; M20.42 Other hammer toe(s) (acquired), left foot; L03.116 Cellulitis of left lower limb; L97.524 Non-pressure chronic ulcer of other part of left foot with necrosis of bone; Z79.4 Long term (current) use of insulin | CPT/HCPCS: 99213 ==

== ENCOUNTER → 2025-03-01 09:23 | Outpatient (BNVA) | payer MEDICARE, SELFPAY | PROVIDERS: PCP Internal Medicine; Visit Provider Podiatrist Foot & Ankle Surgery | DX: I73.9 Peripheral vascular disease, unspecified (principal); E11.42 Type 2 diabetes mellitus with diabetic polyneuropathy; R09.89 Other specified symptoms and signs involving the circulatory and respiratory systems; L97.522 Non-pressure chronic ulcer of other part of left foot with fat layer exposed; I25.10 Atherosclerotic heart disease of native coronary artery without angina pectoris; M20.42 Other hammer toe(s) (acquired), left foot; L03.116 Cellulitis of left lower limb; L97.524 Non-pressure chronic ulcer of other part of left foot with necrosis of bone; E11.621 Type 2 diabetes mellitus with foot ulcer; Z79.4 Long term (current) use of insulin | CPT/HCPCS: 99213 ==

== ENCOUNTER → 2025-03-06 10:19 | Outpatient (BNVA) | payer MEDICARE, SELFPAY | PROVIDERS: PCP Internal Medicine; Visit Provider Podiatrist Foot & Ankle Surgery | DX: I73.9 Peripheral vascular disease, unspecified (principal); E11.42 Type 2 diabetes mellitus with diabetic polyneuropathy; R09.89 Other specified symptoms and signs involving the circulatory and respiratory systems; L97.522 Non-pressure chronic ulcer of other part of left foot with fat layer exposed; M20.42 Other hammer toe(s) (acquired), left foot; L03.116 Cellulitis of left lower limb; L97.524 Non-pressure chronic ulcer of other part of left foot with necrosis of bone; E11.621 Type 2 diabetes mellitus with foot ulcer; Z79.4 Long term (current) use of insulin | CPT/HCPCS: 99213 ==

== ENCOUNTER → 2025-03-13 14:23 | Outpatient (BNVA) | payer MEDICARE, SELFPAY | PROVIDERS: PCP Internal Medicine; Visit Provider Podiatrist Foot & Ankle Surgery | DX: I73.9 Peripheral vascular disease, unspecified (principal); E11.621 Type 2 diabetes mellitus with foot ulcer; L97.523 Non-pressure chronic ulcer of other part of left foot with necrosis of muscle; E11.42 Type 2 diabetes mellitus with diabetic polyneuropathy; R09.89 Other specified symptoms and signs involving the circulatory and respiratory systems; L97.522 Non-pressure chronic ulcer of other part of left foot with fat layer exposed; M20.42 Other hammer toe(s) (acquired), left foot; L97.524 Non-pressure chronic ulcer of other part of left foot with necrosis of bone; I10 Essential (primary) hypertension; Z79.4 Long term (current) use of insulin | CPT/HCPCS: 99213 ==

== ENCOUNTER 2025-03-15 10:37 | Oncology outpatient (recurring) (ONCR) | payer MEDICARE, SELFPAY ==
[2025-03-15 11:08] LABS: Hematocrit 48.7 % (36-47); Hemoglobin 15.00 g/dL (11.27-16.99); Mean Corpuscular HGB Conc 30.8 g/dL (30-55); Mean Corpuscular Hemoglobin 26.6 pg (27-33); Mean Corpuscular Volume 86.5 fl (85-98); Nucleated Red Blood Cells % 0 %; Platelet Count 177 10^3/cmm (157-399); Red Blood Count 5.63 10^6/uL (3.85-5.65); White Blood Count 7.43 10^3/uL (3.29-11.43)
[2025-03-15 11:24] LABS: Alanine Aminotransferase 57 U/L (0-33); Albumin Level 3.8 g/dL (3.5-5.2); Alkaline Phosphatase 122 U/L (35-105); Anion Gap 12.7 (5-19); Aspartate Amino Transferase 61 U/L (0-32); Blood Urea Nitrogen 17 mg/dL (8-23); Calcium 9.6 mg/dL (8.5-10.5); Carbon Dioxide 27 mmol/L (22-29); Chloride 105 mmol/L (98-107); Creatinine Clr Calc Pharmacy 54.1202; Ferritin 180 ng/mL (15-150); Globulin 3.6 g/dL (1.3-4.6); Glucose 120 mg/dL (65-115); Iron 57 ug/dL (37-145); Osmolality Calculated 293 mOsm/kg (285-295); Potassium 4.7 mmol/L (3.5-5.1); Sodium 140 mmol/L (136-145); Total Iron Binding Capacity 238 mcg/dl; Total Protein 7.4 g/dL (6.6-8.7); Unsaturated Iron Binding 181 ug/dL (112-347)
[2025-03-15 11:39] LABS: Vitamin B12 392 pg/mL (232-1245)
== END 2025-03-18 23:59 | disposition home or self-care (01) ==
PROVIDERS: PCP Internal Medicine; Visit Provider Internal Medicine
DX: D50.0 Iron deficiency anemia secondary to blood loss (chronic) (principal); R03.0 Elevated blood-pressure reading, without diagnosis of hypertension; D64.9 Anemia, unspecified; R74.01 Elevation of levels of liver transaminase levels; Z87.891 Personal history of nicotine dependence; Z79.899 Other long term (current) drug therapy
CPT/HCPCS: 36415; 80053; 82607; 82728; 82746; 83010; 83540; 83550; 83615; 85025; 85045; 99213

== ENCOUNTER → 2025-03-27 14:11 | Outpatient (BNVA) | payer MEDICARE, SELFPAY | PROVIDERS: PCP Internal Medicine; Visit Provider Podiatrist Foot & Ankle Surgery | DX: I73.9 Peripheral vascular disease, unspecified (principal); E11.42 Type 2 diabetes mellitus with diabetic polyneuropathy; R09.89 Other specified symptoms and signs involving the circulatory and respiratory systems; L97.522 Non-pressure chronic ulcer of other part of left foot with fat layer exposed; M20.42 Other hammer toe(s) (acquired), left foot; L97.524 Non-pressure chronic ulcer of other part of left foot with necrosis of bone; E11.621 Type 2 diabetes mellitus with foot ulcer | CPT/HCPCS: 99213 ==

== ENCOUNTER → 2025-04-17 07:58 | Outpatient (BNVA) | payer MEDICARE, SELFPAY | PROVIDERS: PCP Internal Medicine; Visit Provider Podiatrist Foot & Ankle Surgery | DX: I73.9 Peripheral vascular disease, unspecified (principal); E11.42 Type 2 diabetes mellitus with diabetic polyneuropathy; R09.89 Other specified symptoms and signs involving the circulatory and respiratory systems; E11.621 Type 2 diabetes mellitus with foot ulcer; L97.524 Non-pressure chronic ulcer of other part of left foot with necrosis of bone; L97.522 Non-pressure chronic ulcer of other part of left foot with fat layer exposed; M20.42 Other hammer toe(s) (acquired), left foot | CPT/HCPCS: 99213 ==

== ENCOUNTER → 2025-05-01 11:28 | Outpatient (BNVA) | payer MEDICARE, SELFPAY | PROVIDERS: PCP Internal Medicine; Visit Provider Podiatrist Foot & Ankle Surgery | DX: I73.9 Peripheral vascular disease, unspecified (principal); E11.42 Type 2 diabetes mellitus with diabetic polyneuropathy; R09.89 Other specified symptoms and signs involving the circulatory and respiratory systems; E11.621 Type 2 diabetes mellitus with foot ulcer; L97.522 Non-pressure chronic ulcer of other part of left foot with fat layer exposed; M20.42 Other hammer toe(s) (acquired), left foot; L97.524 Non-pressure chronic ulcer of other part of left foot with necrosis of bone; Z79.4 Long term (current) use of insulin | CPT/HCPCS: 99213 ==

== ENCOUNTER 2025-05-25 09:10 | Outpatient (CLI) | payer MEDICARE, SELFPAY ==
--- NOTE | 2025-05-25 09:19 | MM_ITS ---
WS: [id number] BILATERAL SCREENING DIGITAL TOMOSYNTHESIS MAMMOGRAM WITH CAD HISTORY: SCREENING COMPARISON: 05/04/2024, 03/25/2023 Bilateral CC and MLO views with tomosynthesis and synthetic mammography submitted. Computer aided detection analyzed. Breast composition: The breasts are almost entirely fatty. No suspicious masses, microcalcifications or architectural distortion. Inverted RIGHT nipple. There is a slight area of distortion in the lateral RIGHT breast which has been present on multiple prior studies. Numerous arterial calcifications. No suspicious mass or grouping of calcification. MM/MM [facility] tomosynthesis [id number] IMPRESSION: BI-RADS: 2 - Benign. FOLLOW UP: 1 Year Follow-up
== END 2025-05-25 09:11 | disposition home or self-care (01) ==
LOC: RAD 09:12
PROVIDERS: PCP Internal Medicine; Visit Provider Internal Medicine
DX: Z12.31 Encounter for screening mammogram for malignant neoplasm of breast (principal); R92.313 Mammographic fatty tissue density, bilateral breasts; R92.1 Mammographic calcification found on diagnostic imaging of breast; N64.89 Other specified disorders of breast
CPT/HCPCS: 77063; 77067

== ENCOUNTER → 2025-05-29 14:20 | Outpatient (BNVA) | payer MEDICARE, SELFPAY | PROVIDERS: PCP Internal Medicine; Visit Provider Internal Medicine | DX: I25.10 Atherosclerotic heart disease of native coronary artery without angina pectoris (principal); I10 Essential (primary) hypertension; I73.9 Peripheral vascular disease, unspecified | CPT/HCPCS: 99214 ==

== ENCOUNTER → 2025-06-05 09:20 | Outpatient (BNVA) | payer MEDICARE, SELFPAY | PROVIDERS: PCP Internal Medicine; Visit Provider Podiatrist Foot & Ankle Surgery | DX: I73.9 Peripheral vascular disease, unspecified (principal); E11.42 Type 2 diabetes mellitus with diabetic polyneuropathy; M20.42 Other hammer toe(s) (acquired), left foot; Z79.4 Long term (current) use of insulin | CPT/HCPCS: 99213 ==

== ENCOUNTER 2025-07-05 10:58 | Oncology outpatient (recurring) (ONCR) | payer MEDICARE, SELFPAY ==
[2025-07-05 11:35] LABS: Hematocrit 49.0 % (36-47); Hemoglobin 16.10 g/dL (11.27-16.99); Mean Corpuscular HGB Conc 32.9 g/dL (30-55); Mean Corpuscular Hemoglobin 29.6 pg (27-33); Mean Corpuscular Volume 90.1 fl (85-98); Nucleated Red Blood Cells % 0 %; Platelet Count 181 10^3/cmm (157-399); Red Blood Count 5.44 10^6/uL (3.85-5.65); White Blood Count 9.21 10^3/uL (3.29-11.43)
[2025-07-05 12:01] LABS: Alanine Aminotransferase 22 U/L (0-33); Albumin Level 3.8 g/dL (3.5-5.2); Alkaline Phosphatase 103 U/L (35-105); Anion Gap 15.5 (5-19); Aspartate Amino Transferase 30 U/L (0-32); Blood Urea Nitrogen 19 mg/dL (8-23); Calcium 9.0 mg/dL (8.5-10.5); Carbon Dioxide 24 mmol/L (22-29); Chloride 105 mmol/L (98-107); Creatinine Clr Calc Pharmacy 36.1108; Ferritin 136 ng/mL (15-150); Globulin 3.4 g/dL (1.3-4.6); Glucose 142 mg/dL (65-115); Iron 99 ug/dL (37-145); Osmolality Calculated 295 mOsm/kg (285-295); Potassium 4.5 mmol/L (3.5-5.1); Sodium 140 mmol/L (136-145); Total Iron Binding Capacity 294 mcg/dl; Total Protein 7.2 g/dL (6.6-8.7); Unsaturated Iron Binding 195 ug/dL (112-347)
== END 2025-07-18 23:59 | disposition home or self-care (01) ==
PROVIDERS: PCP Internal Medicine; Visit Provider Internal Medicine
DX: D50.0 Iron deficiency anemia secondary to blood loss (chronic) (principal); R03.0 Elevated blood-pressure reading, without diagnosis of hypertension; Z87.891 Personal history of nicotine dependence; R74.01 Elevation of levels of liver transaminase levels
CPT/HCPCS: 80053; 82728; 83540; 83550; 83615; 85025; 85045; 99213